=== PATIENT | female | born 1935 | race Caucasian/White ===

== ENCOUNTER 2016-03-20 05:50 | Outpatient (CLI) | payer MEDICARE ==
[~2016-03-20] VITALS: Ht 160 cm; Wt 60.3 kg
[~2016-03-20 05:50] MED LIST: CALC-817 PO; MULT-974 PO; OMEP40CA36 PO; ROPI1TAB GT
== END 2016-03-20 11:48 ==
LOC: PREOP 05:50
PROVIDERS: ATTEND Surgery
DX: Z01.818 Encounter for other preprocedural examination (principal); K21.9 Gastro-esophageal reflux disease without esophagitis

== ENCOUNTER 2016-03-24 09:37 | Day surgery (SDC) | payer MEDICARE ==
[~2016-03-24] VITALS: Ht 160 cm; Wt 60.3 kg
[2016-03-24] MEDS ORDERED: NALOXONE 0.4 MG/ML 1 ML (NARCAN) VIAL IVP PRN (10:00)
[2016-03-24] MEDS ORDERED: FLUMAZENIL (ROMAZICON) 0.1 MG/ML 5 ML VIAL INJ PRN (10:00)
[2016-03-24] MEDS ORDERED: MIDAZOLAM 2 MG/2 ML (VERSED) VIAL IVP PRN (10:00)
[2016-03-24] MEDS ORDERED: NS IV 500 ML 500 ML IV PRN (10:00)
[2016-03-24] MEDS ORDERED: HURRICAINE EXT TUBE (BENZOCAINE) XX PRN (10:00)
--- NOTE | 2016-03-24 10:11 | Pre-Op Note & Conscious Sedat ---
Pre-Operative Progress Note H&P Reviewed The H&P was reviewed, patient examined and no changes noted. Date H&P Reviewed: Mar 24, 2016 Time H&P Reviewed: 10:10 Pre-Op Diagnosis: Rosamaria. Dysphagia Conscious Sedation Pre-Proced ASA Class: 2 Airway Mallampati Classification: ([place] appropriate class) I. II. III, IV Lungs Heart ASA score ASA 1: a normal healthy patient ASA 2: a patient with a mild systemic disease (mid diabetes, controlled hypertension, obesity ASA 3: a patient with a severe systemic disease that limits activity (angina , COPD, prior Myocardial infarction) ASA 4: a patient with an incapacitating disease that is a constant threat to life (CHF, renal failure) ASA 5: a moribund patient not expected to survive 24 hrs. (ruptured aneurysm) ASA 6: a declared brain patient whose organs are being harvested. For emergent operations, add the letter E after the classification Grade 2 Sedation Plan: Discussed options with patient/fam Note The patient is an appropriate candidate to undergo the planned procedure, sedation, and anesthesia. The patient immediately re-assessed prior to indication. COLLINS CARDOSO MD Mar 24, 2016 10:11 am
[2016-03-24 10:13] VITALS: BP 123/93
[2016-03-24] MEDS ORDERED: HURRICAINE EXT TUBE (BENZOCAINE) ONE (10:40)
[2016-03-24] MEDS ORDERED: fentaNYL INJECTION 100 MCG/2 ML AMP ONE (10:40)
[2016-03-24] MEDS ORDERED: MIDAZOLAM 2 MG/2 ML (VERSED) VIAL ONE ×3 (10:40)
[2016-03-24] MEDS: fentaNYL INJECTION 100 MCG/2 ML AMP IVP PRN ×2 (10:45→10:49)
--- NOTE | 2016-03-24 11:07 | Progress Note-Post Operative ---
Post-Operative Progess Note Pre-Operative Diagnosis Rosamaria. Dysphagia Post-Operative Diagnosis hiatal hernia with a peptic stricture. Distal streaky gastritis Post-Op Procedure Note Date of Procedure: Mar 24, 2016 Name of Procedure: EGD with antral biopsy Balloon dilatation of esophageal stricture Anesthesia Type sedation Specimen(s) collected antral mucosa COLLINS CARDOSO MD Mar 24, 2016 11:07 am
--- NOTE | 2016-03-24 11:09 | Discharge Inst-Simple/Standard ---
Discharge Inst-Standard Discharge Medications New, Converted or Re-Newed RX: Other Patient Instructions/Follow Up Plan of Care/Instructions/FU: increase omeprazole to twice a day. Follow-up with me in a month Activity as Tolerated: Yes Discharge Diet: Soft Diet COLLINS CARDOSO MD Mar 24, 2016 11:09 am
[2016-03-24 11:30] VITALS: BP 135/64
[2016-03-24 12:00] VITALS: BP_SYST 135; BP_SYST 148; BP_DIAS 64; BP_DIAS 77
[2016-03-24 12:05] VITALS: BP 148/77
--- NOTE | 2016-03-25 07:45 | PROCEDURE REPORT ---
PROCEDURE PHYSICIAN: COLLINS CARDOSO DATE OF PROCEDURE: 03/24/2016 PROCEDURE: 1. Upper GI endoscopy with antral biopsy. 2. Balloon dilatation of esophageal stricture. SURGEON: Dr. Cardoso. INDICATION FOR THE PROCEDURE: This lady came in for an upper endoscopy to evaluate upper abdominal pain with symptoms of reflux and intermittent dysphagia. An informed consent was obtained after reviewing the procedure in detail. DESCRIPTION OF PROCEDURE: She was placed in left lateral decubitus position and her vital signs were monitored. Conscious sedation was achieved using Versed and fentanyl. The flexible gastroscope was introduced down the esophagus, past the stomach, into the proximal duodenum. FINDINGS: ESOPHAGUS: Hiatal hernia with a concentric stricture at the proximal end of the hernia. It had the appearance of a peptic stricture and dilated to 20 mm with a balloon. STOMACH: Distal gastritis in a streaky fashion. There was no ulceration. Biopsy for H. pylori was obtained. DUODENUM: Normal. She tolerated the procedure well and was taken back to the nursing area in a stable condition. IMPRESSION: 1. Upper abdominal pain and dysphagia. 2. Peptic esophageal stricture. 3. Balloon dilatation completed. 4. Helicobacter status pending. Job ID: [id number] Dictated Date: 03/24/2016 11:06:00 Channel Marketing Program Manager Date: 03/25/2016 07:41:59 / chuyita LOWE
== END 2016-03-24 12:10 | disposition home or self-care (01) ==
LOC: ENDO 09:37
PROVIDERS: ATTEND Surgery
DX: K22.2 Esophageal obstruction (principal); R13.10 Dysphagia, unspecified; K44.9 Diaphragmatic hernia without obstruction or gangrene; K29.70 Gastritis, unspecified, without bleeding
CPT/HCPCS: 88305

== ENCOUNTER 2016-11-06 05:42 | Outpatient (CLI) | payer MEDICARE ==
[~2016-11-06] VITALS: Ht 160 cm; Wt 60.3 kg
[2016-11-06] MEDS ORDERED: ROPI1TAB2 PO (14:56)
[2016-11-06] MEDS ORDERED: OMEP40CA36 PO (14:56)
== END 2016-11-06 14:58 ==
LOC: PREOP 05:42
PROVIDERS: ATTEND Surgery
DX: R19.4 Change in bowel habit; Z01.818 Encounter for other preprocedural examination

== ENCOUNTER 2016-11-17 10:22 | Day surgery (SDC) | payer MEDICARE ==
[~2016-11-17] VITALS: Ht 160 cm; Wt 60.3 kg
[~2016-11-17 10:22] MED LIST changes: +MIDAZOLAM 2 MG/2 ML (VERSED) VIAL ONE; +ROPI1TAB2 PO; +fentaNYL INJECTION 100 MCG/2 ML AMP ONE
--- OUTSIDE RECORDS SUMMARY | 2016-11-17 10:26 | XMS REPORT | Clinical Summary ---
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 Active Fely Mcintosh Unspecified idiopathic peripheral neuropathy DIZZINESS 780.4 Resolved Fely Mcintosh Dizziness and giddiness SYNCOPE 780.2 Resolved Fely Mcintosh Syncope and collapse LEG PAIN, LEFT 729.5 Resolved Fely Mcintosh Pain in limb WEIGHT GAIN, ABNORMAL 783.1 Resolved Fely Mcintosh Abnormal weight gain CHEST PAIN, ATYPICAL 786.59 Resolved Fely Mcintosh Other chest pain GERD 530.81 Active Fely Mcintosh Esophageal reflux MALABSORPTION SYNDROME 579.9 Resolved Fely Mcintosh Unspecified intestinal malabsorption ABDOMINAL PAIN, GENERALIZED 789.07 Resolved Fely Mcintosh Abdominal pain, generalized RESTLESS LEG SYNDROME 333.94 Active Fely Mcintosh Restless legs syndrome (RLS) LUMBAR RADICULOPATHY, LEFT 724.4 Active Fely Mcintosh Thoracic or lumbosacral neuritis or radiculitis, unspecified IBS 564.1 Active Fely Mcintosh Irritable bowel syndrome ABDOMINAL PAIN, GENERALIZED 789.07 Active Fely Mcintosh Abdominal pain, generalized Medication List Medication Instructions Start Date Stop Date Generic Name NDC Status Provider Patient Instruction REQUIP 1 MG TABS 1 PO at HS [place] HCL [id number] Active Fely Mcintosh OMEPRAZOLE 20 MG CPDR 1 PO daily OMEPRAZOLE 72114933383 Active Yu Shearer Vital Signs Date Name Value Unit Range Description blood pressure, diastolic - 8462-4 65 mm[Hg] BP rodrigues blood pressure, systolic - 8480-6 118 mm[Hg] BP sys pulse rate E&M - 8867-4 84 /min Heart rate respiratory rate E&M - 9279-1 14 /min Resp rate temperature E&M 98.6 [degF] Body temperature weight E&M - 3141-9 142 [lb_av] Weight Measured blood pressure, diastolic - 8462-4 73 mm[Hg] BP rodrigues blood pressure, systolic - 8480-6 120 mm[Hg] BP sys pulse rate E&M - 8867-4 76 /min Heart rate respiratory rate E&M - 9279-1 14 /min Resp rate temperature E&M 98.6 [degF] Body temperature weight E&M - 3141-9 141 [lb_av] Weight Measured blood pressure, diastolic - 8462-4 66 mm[Hg] BP rodrigues blood pressure, systolic - 8480-6 118 mm[Hg] BP sys pulse rate E&M - 8867-4 74 /min Heart rate respiratory rate E&M - 9279-1 14 /min Resp rate weight E&M - 3141-9 140 [lb_av] Weight Measured blood pressure, diastolic - 8462-4 80 mm[Hg] BP rodrigues blood pressure, systolic - 8480-6 126 mm[Hg] BP sys pulse rate E&M - 8867-4 76 /min Heart rate respiratory rate E&M - 9279-1 14 /min Resp rate temperature E&M 98.6 [degF] Body temperature weight E&M - 3141-9 145 [lb_av] Weight Measured Diagnostic Results Date Name Value Unit Range Description Clinical Lists Update: CBC,CMP,FLP - Chemistry sodium, serum 142 mmol/L alkaline phosphatase, serum 105 U/L Estimated Glomerular Filtration Rate (calc) >60 mL/min/1.73m2 albumin, serum 3.8 g/dL chloride, serum 110 mmol/L LDL cholesterol, serum 125 mg/dL creatinine, serum 0.78 mg/dL triglyceride, serum, fasting 84 mg/dL glucose, plasma fasting 103 mg/dL potassium, serum 4.0 mmol/L very low density lipoproteins 17 mg/dL carbon dioxide, venous blood 22 mmol/L protein, total, serum 6.6 g/dL calcium, serum 9.3 mg/dL aspartate aminotransferase (SGOT), serum 20 U/L urea nitrogen, blood 20 mg/dL alanine aminotransferase (SGPT), serum 14 U/L bilirubin, serum, total 0.9 mg/dL cholesterol, serum 192 mg/dL HDL cholesterol, serum 52 mg/dL Clinical Lists Update: CBC,CMP,FLP - Hematology erythrocyte (RBC) count 4.20 10*6/mm3 hematocrit, blood 40 % leukocyte count, blood 4.7 10*3/mm3 mean corpuscular volume, RBC 96 fL hemoglobin, blood 13.1 g/dL red blood cell distribution width 13.6 % platelet count 165 10*3/mm3 Clinical Lists Update: CBC,CMP,FLP,TSH - Chemistry thyroid stimulating hormone, serum 1.35 u[iU]/mL triglyceride, serum, fasting 72 mg/dL very low density lipoproteins 14 mg/dL calcium, serum 9.4 mg/dL bilirubin, serum, total 0.6 mg/dL alkaline phosphatase, serum 103 U/L albumin, serum 3.8 g/dL LDL cholesterol, serum 14 mg/dL HDL cholesterol, serum 60 mg/dL glucose, plasma fasting 97 mg/dL Estimated Glomerular Filtration Rate (calc) >60 mL/min/1.73m2 creatinine, serum 0.73 mg/dL carbon dioxide, venous blood 27 mmol/L cholesterol, serum 206 mg/dL chloride, serum 107 mmol/L urea nitrogen, blood 22 mg/dL sodium, serum 141 mmol/L alanine aminotransferase (SGPT), serum 18 U/L aspartate aminotransferase (SGOT), serum 18 U/L protein, total, serum 6.3 g/dL potassium, serum 3.9 mmol/L Clinical Lists Update: CBC,CMP,FLP,TSH - Hematology hemoglobin, blood 13.4 g/dL red blood cell distribution width 13.6 % hematocrit, blood 40 % erythrocyte (RBC) count 4.18 10*6/mm3 platelet count 164 10*3/mm3 mean corpuscular volume, RBC 97 fL leukocyte count, blood 5.6 10*3/mm3 Clinical Lists Update: Ferritin - Chemistry ferritin, serum 152 ng/mL ferritin, serum 128 ng/mL Encounters Code Encounter Date Provider Facility CPT-96587 Ofc Vst, Est Level IV 15:42:52 STOCK DEALER Fely Mcintosh DO, FACP CPT-05279 Ofc Vst, Est Level IV 15:13:21 CDT Fely Mcintosh, DO, FACP CPT-82130 Ofc Vst, Est Level III 20:49:43 CDT Fely Mcintosh, DO, FACP CPT-43143 Ofc Vst, Est Level III 15:06:59 STOCK DEALER Fely Mcintosh DO, FACP CPT-98362 Ofc Vst, Est Level III 19:48:57 STOCK DEALER Fely Mcintosh, DO, FACP CPT-08512 Ofc Vst, Est Level IV 11:53:22 CDT Fely Mcintosh, DO, FACP CPT-81013 Ofc Vst, New Level IV 11:47:30 CDT Fely Mcintosh, DO, FACP Procedures Code Procedure Name Date Entry Date Standard Description CPT-G0439 Medicare Annual Wellness Visit 18:04:09 STOCK DEALER CPT-G8445 E-Prescribing Not sent due to no medication given 15:06: 59 STOCK DEALER CPT-G8445 E-Prescribing Not sent due to no medication given 19:48: 57 STOCK DEALER CPT-G8443 E-Prescribing Medication Sent 11:53:22 CDT CPT-G8445 E-Prescribing Not sent due to no medication given 11:47: 30 CDT
--- OUTSIDE RECORDS SUMMARY | 2016-11-17 10:27 | XMS REPORT | Clinical Summary ---
Author Author User, [employer] Organization Fely Mcintosh DO, FACP Address Unknown [...] TABS 1 PO at HS [place] HCL [id number] Active Fely Mcintosh OMEPRAZOLE 20 MG CPDR 1 PO daily OMEPRAZOLE [id number] Active Yu Shearer Vital Signs Date Name [...] Description Clinical Lists Update: CBC,CMP,FLP - Chemistry cholesterol, serum 192 mg/dL carbon dioxide, venous blood 22 mmol/L alanine aminotransferase (SGPT), serum 14 U/L alkaline phosphatase, serum 105 U/L Estimated Glomerular Filtration Rate (calc) >60 mL/min/1.73m2 albumin, serum 3.8 g/dL chloride, serum 110 mmol/L LDL cholesterol, serum 125 mg/dL potassium, serum 4.0 mmol/L triglyceride, serum, fasting 84 mg/dL aspartate aminotransferase (SGOT), serum 20 U/L protein, total, serum 6.6 g/dL very low density lipoproteins 17 mg/dL glucose, plasma fasting 103 mg/dL calcium, serum 9.3 mg/dL bilirubin, serum, total 0.9 mg/dL urea nitrogen, blood 20 mg/dL sodium, serum 142 mmol/L HDL cholesterol, serum 52 mg/dL creatinine, serum 0.78 mg/dL Clinical Lists Update: CBC,CMP,FLP - Hematology erythrocyte (RBC) count 4.20 10*6/mm3 leukocyte count, blood 4.7 10*3/mm3 mean corpuscular volume, RBC 96 fL red blood cell distribution width 13.6 % hematocrit, blood 40 % hemoglobin, blood 13.1 g/dL platelet count 165 10*3/mm3 Clinical Lists Update: CBC,CMP,FLP,TSH - Chemistry potassium, serum 3.9 mmol/L thyroid stimulating hormone, serum 1.35 u[iU]/mL triglyceride, [...] 18 U/L protein, total, serum 6.3 g/dL Clinical Lists Update: CBC,CMP,FLP,TSH - Hematology red blood cell distribution width 13.6 % hemoglobin, blood 13.4 g/dL mean corpuscular volume, RBC 97 fL erythrocyte (RBC) count 4.18 10*6/mm3 leukocyte count, blood 5.6 10*3/mm3 hematocrit, blood 40 % platelet count 164 10*3/mm3 Clinical Lists Update: Ferritin - Chemistry ferritin, serum 152 ng/mL Encounters Code Encounter Date Provider Facility CPT-28817 Ofc Vst, Est Level IV 15:42:52 PROFESSOR OF EARLY CHILDHOOD EDUCATION Fely Ho aDyna Arambula Mcintosh, DO, FACP CPT-58353 Ofc Vst, Est Level IV 15:13:21 CDT Fely Ho Dayna Reneei S Mcintosh, DO, FACP CPT-43830 Ofc Vst, Est Level III 20:49:43 CDT Fely [place] Dayna Reneei S Mcintosh, DO, FACP CPT-94655 Ofc Vst, Est Level III 15:06:59 PROFESSOR OF EARLY CHILDHOOD EDUCATION Fely [place] Dayna Reneei S Mcintosh, DO, FACP CPT-36641 Ofc Vst, Est Level III 19:48:57 PROFESSOR OF EARLY CHILDHOOD EDUCATION Fely Ho Dayna Geiger S Mcintosh, DO, FACP CPT-88975 Ofc Vst, Est Level IV 11:53:22 CDT Fely Ho Dayna Geiger S Mcintosh, DO, FACP CPT-20224 Ofc Vst, New Level IV 11:47:30 CDT Fely Ho Dayna Geiger S Mcintosh, DO, FACP Procedures Code Procedure Name Date Entry Date Standard Description CPT-G0439 Medicare Annual Wellness Visit 18:04:09 PROFESSOR OF EARLY CHILDHOOD EDUCATION CPT-G8445 E-Prescribing Not sent due to no medication given 15:06: 59 PROFESSOR OF EARLY CHILDHOOD EDUCATION CPT-G8445 E-Prescribing Not sent due to no medication given 19:48: 57 PROFESSOR OF EARLY CHILDHOOD EDUCATION CPT-G8443 E-Prescribing Medication Sent 11:53:22 CDT CPT-G8445 E-Prescribing Not sent due to no medication given 11:47: 30 CDT
--- OUTSIDE RECORDS SUMMARY | 2016-11-17 10:27 | XMS REPORT | Clinical Summary ---
Author Author User, [employer] Organization Fely Mcintosh DO, FACP Address Unknown [...] TABS 1 PO at HS ROPINIRO[place] HCL [id number] Active Fely Mcintosh OMEPRAZOLE 20 MG CPDR 1 PO daily OMEPRAZOLE 99861937282 Active Yu Shearer Vital Signs Date Name Value Unit Range Description blood pressure, diastolic - 8462-4 60 mm[Hg] BP rodrigues blood pressure, systolic - 8480-6 115 mm[Hg] BP sys pulse rate E&M - 8867-4 66 /min Heart rate respiratory rate E&M - 9279-1 14 /min Resp rate weight E&M - 3141-9 142 [lb_av] Weight Measured blood pressure, diastolic - 8462-4 65 mm[Hg] [...] ng/mL Encounters Code Encounter Date Provider Facility CPT-30727 Ofc Vst, Est Level III 19:41:49 CDT Fely Mcintosh DO, FACP CPT-12269 Ofc Vst, Est Level IV 15:42:52 ELECTROMEDICAL SERVICE ENGINEER Fely Mcintosh DO, FACP CPT-19170 Ofc Vst, Est Level IV 15:13:21 CDT Fely Mcintosh, DO, FACP CPT-75606 Ofc Vst, Est Level III 20:49:43 CDT Fely Mcintosh DO, FACP CPT-36905 Ofc Vst, Est Level III 15:06:59 ELECTROMEDICAL SERVICE ENGINEER Fely Mcintosh, DO, FACP CPT-86773 Ofc Vst, Est Level III 19:48:57 ELECTROMEDICAL SERVICE ENGINEER Fely Mcintosh, DO, FACP CPT-78267 Ofc Vst, Est Level IV 11:53:22 CDT Fely Mcintosh DO, FACP CPT-15453 Ofc Vst, New Level IV 11:47:30 CDT Fely Mcintosh, DO, FACP Procedures Code Procedure Name Date Entry Date Standard Description CPT-G0439 Medicare Annual Wellness Visit 18:04:09 ELECTROMEDICAL SERVICE ENGINEER CPT-G8445 E-Prescribing Not sent due to no medication given 15:06: 59 ELECTROMEDICAL SERVICE ENGINEER CPT-G8445 E-Prescribing Not sent due to no medication given 19:48: 57 ELECTROMEDICAL SERVICE ENGINEER CPT-G8443 E-Prescribing Medication Sent 11:53:22 CDT CPT-G8445 E-Prescribing Not sent due to no medication given 11:47: 30 CDT
[2016-11-17] MEDS ORDERED: NS IV 500 ML 500 ML ONE (10:32)
[2016-11-17] MEDS ORDERED: NS IV 500 ML 500 ML IV ONE (10:45)
[2016-11-17 10:50] VITALS: BP 132/83
--- NOTE | 2016-11-17 10:57 | History & Physicial ---
History of Present Illness History of Present Illness Reason for visit/HPI to undergo colonoscopy to investigate change in her bowel habits, with a tendency toward increasing constipation. Date of Admission Date Seen by Provider: Nov 17, 2016 Time Seen by Provider: 10:55 I consulted on this patient on 11/17/16 10:54 Attending Physician Collins Cardoso MD Admitting Physician Fely Mcintosh DO Consult Allergies and Home Medications Allergies Coded Allergies: No Known Drug Allergies (Unverified , 03/20/16) Home Medications Omeprazole 40 Mg Capsule.dr, 40 MG PO DAILY, (Reported) Ropinirole HCl 1 Mg Tablet, 1 MG PO HS, (Reported) Past Eyvxxhf-Jxxhkh-Nesmvu Hx Patient Social History Marrital Status: Employed/Student: retired Recent Foreign Travel: No Contact w/other who traveled: No Recent Hopitalizations: No Immunizations Up To Date Date of Pneumonia Vaccine: Jan 19, 2012 Date of Influenza Vaccine: Dec 07, 2012 Seasonal Allergies Seasonal Allergies: No Surgeries Yes Gallbladder Respiratory No Cardiovascular No Neurological No 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 System Hx 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 Disorders: No Sexually Transmitted Disease: No HIV/AIDS: No Genitourinary No Gastrointestinal Yes Gastroesophageal Reflux, Irritable Bowel Musculoskeletal Yes Chronic Back Pain Endocrine History of Endocrine Disorders: No HEENT History of HEENT Disorders: No 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, Bilateral Hearing Aide Cancer No Psychosocial History of Psychiatric Problem: No Integumentary History of Skin or Integumenta: No Blood Transfusions Adverse Reaction to a Blood Tr: No Constitutional: no symptoms reported EENTM: no symptoms reported Respiratory: no symptoms reported Cardiovascular: no symptoms reported Gastrointestinal: see HPI Genitourinary: no symptoms reported Musculoskeletal: no symptoms reported Skin: no symptoms reported Psychiatric/Neurological: No Symptoms Reported Physical Exam Vital Signs Capillary Refill : General Appearance: No Apparent Distress HEENT: Normal ENT Inspection Neck: Normal Inspection Respiratory: Lungs Clear Cardiovascular: Regular Rate, Rhythm Gastrointestinal: Non Tender, Soft Rectal: Deferred Back: Normal Inspection Extremity: Normal Inspection Neurologic/Psychiatric: Alert, Oriented x3 Skin: Warm/Dry Assessment/Plan Assessment and Plan lady with a change in bowel habits. For colonoscopy. Problems: COLLINS CARDOSO MD Nov 17, 2016 10:57 am
--- NOTE | 2016-11-17 10:57 | Conscious Sedation/ASA ---
Conscious Sedation Pre-Proced Time Reviewed: 10:57 ASA Class: 2 Airway Mallampati Classification: ([place] appropriate class) I. II. III, IV Lungs Heart ASA score ASA 1: a normal healthy patient ASA 2: a patient with a mild systemic disease (mid diabetes, controlled hypertension, obesity ASA 3: a patient with a severe systemic disease that limits activity (angina , COPD, prior Myocardial infarction) ASA 4: a patient with an incapacitating disease that is a constant threat to life (CHF, renal failure) ASA 5: a moribund patient not expected to survive 24 hrs. (ruptured aneurysm) ASA 6: a declared brain patient whose organs are being harvested. For emergent operations, add the letter E after the classification Grade 1 Sedation Plan: Discussed options with patient/fam Note The patient is an appropriate candidate to undergo the planned procedure, sedation, and anesthesia. The patient immediately re-assessed prior to indication. COLLINS CARDOSO MD Nov 17, 2016 10:57 am
[2016-11-17] MEDS: fentaNYL INJECTION 100 MCG/2 ML AMP IVP PRN ×2 (11:08→11:11)
[2016-11-17] MEDS: MIDAZOLAM 2 MG/2 ML (VERSED) VIAL IVP PRN ×3 (11:09→11:15)
--- NOTE | 2016-11-17 11:33 | Endo Procedure Record ---
Endo Procedure Report Date of Procedure Nov 17, 2016 Surgeon (s) COLLINS CARDOSO MD Post Procedure/Op Diagnosis 1. 3 mm distal sigmoid polyp 2. Very few sigmoid diverticula Procedure Performed colonoscopy to cecum Snare polypectomy 1 Description of Procedure Anesthesia Type: Conscious Sedation Specimen(s) collected/removed sigmoid polyp Description of the Procedure Indication for procedure: This lady came in for colonoscopy to evaluate a change in her bowel habits, with an increased tendency toward constipation. Informed consent was obtained after reviewing the procedure in detail. Description of the procedure: She was placed in left lateral decubitus position and her vital signs were monitored. Conscious sedation was achieved using Versed and fentanyl. Digital rectal examination was unremarkable. The colonoscope was then introduced into the rectum and advanced all the way up to the cecum .The quality of bowel preparation was excellent. The scope was then withdrawn slowly and the mucosa examined in a systematic fashion. Findings: 1. 3 mm polyp at the distal sigmoid colon, that was snared and retrieved 2. Very few sigmoid diverticula. She tolerated the procedure well and was taken back to the nursing area in a stable condition. Impression: Change in bowel habits. No obstructing lesions discovered. Incidental sigmoid polyp excised. Recommend repeating in 5 years. Copies To: DUNG KEYS XAVIER M MD Nov 17, 2016 11:33 am
--- NOTE | 2016-11-17 11:34 | Discharge Inst-Simple/Standard ---
Discharge Inst-Standard Discharge Medications New, Converted or Re-Newed RX: Other Patient Instructions/Follow Up Plan of Care/Instructions/FU: to increase fiber and water intake. repeat colonoscopy in 5 years Activity as Tolerated: Yes Discharge Diet: No Restrictions COLLINS CARDOSO MD Nov 17, 2016 11:34 am
[2016-11-17 11:50] VITALS: BP 109/75
[2016-11-17 12:20] VITALS: BP 123/76
[2016-11-17 12:40] VITALS: BP 123/76
== END 2016-11-17 12:40 | disposition home or self-care (01) ==
LOC: ENDO 10:22
PROVIDERS: ATTEND Surgery
DX: K63.5 Polyp of colon (principal); K57.30 Diverticulosis of large intestine without perforation or abscess without bleeding; K21.9 Gastro-esophageal reflux disease without esophagitis

== ENCOUNTER 2017-02-04 09:51 | Inpatient (IN) | payer MEDICARE ==
[~2017-02-04] VITALS: Ht 160 cm; Wt 60.4 kg
[~2017-02-04 09:51] MED LIST changes: -MIDAZOLAM 2 MG/2 ML (VERSED) VIAL ONE; -fentaNYL INJECTION 100 MCG/2 ML AMP ONE
[2017-02-04] MEDS ORDERED: NS IV 500 ML 500 ML IV ONE (10:19)
[2017-02-04 10:26] LABS: BASOPHILS % (AUTO) 0 % (0-10); EOSINOPHILS % (AUTO) 0 % (0-10); LYMPHOCYTES # (AUTO) 0.5 X 10^3 (1.0-4.0); LYMPHOCYTES % (AUTO) 4 % (12-44); MEAN CORPUSCULAR HEMOGLOBIN 32 PG (25-34); MEAN CORPUSCULAR HGB CONC 34 G/DL (32-36); MEAN CORPUSCULAR VOLUME 96 FL (80-99); MEAN PLATELET VOLUME 11.5 FL (7.4-10.4); MONOCYTES # (AUTO) 0.8 X 10^3 (0.0-1.0); MONOCYTES % (AUTO) 7 % (0-12); NEUTROPHILS # (AUTO) 9.5 X 10^3 (1.8-7.8); NEUTROPHILS % (AUTO) 88 % (42-75); PLATELET COUNT 135 10^3/uL (130-400); RED BLOOD COUNT 4.21 10^6/uL (4.35-5.85); RED CELL DISTRIBUTION WIDTH 13.8 % (10.0-14.5); WHITE BLOOD COUNT 10.8 10^3/uL (4.3-11.0)
[2017-02-04 10:42] LABS: LYMPHOCYTES % (MANUAL) 3 %; NEUTROPHILS % (MANUAL) 90 %; REACTIVE LYMPHOCYTES 3 %
--- NOTE | 2017-02-04 10:45 | Diagnostic Imaging Report ---
INDICATION: Fall, fractured right femur. TECHNIQUE: An AP supine view of the chest was obtained. FINDINGS: The heart size and pulmonary vascularity are at the upper limits of normal given the supine technique. There is no evidence of pneumothorax or focal consolidation. No definite pleural fluid is seen. IMPRESSION: Borderline cardiomegaly and pulmonary venous congestion on this supine image. Followup PA and lateral views in the upright position would be useful. Dictated by: Dictated on workstation # [id number]
[2017-02-04 10:46] LABS: ALANINE AMINOTRANSFERASE 19 U/L (0-55); ALBUMIN 3.9 GM/DL (3.2-4.5); ANION GAP 9 MMOL/L (5-14); ASPARTATE AMINO TRANSFERASE 26 U/L (5-34); BILIRUBIN,TOTAL 1.5 MG/DL (0.1-1.0); BLOOD UREA NITROGEN 17 MG/DL (7-18); BUN/CREATININE RATIO 24; CALCIUM 9.1 MG/DL (8.5-10.1); CARBON DIOXIDE 25 MMOL/L (21-32); CHLORIDE 105 MMOL/L (98-107); CREATINE KINASE 238 U/L (29-168); CREATININE SERUM 0.71 MG/DL (0.60-1.30); GFR ESTIMATED > 60; GLUCOSE 155 MG/DL (70-105); POTASSIUM 3.6 MMOL/L (3.6-5.0); SODIUM 139 MMOL/L (135-145); TOTAL PROTEIN 6.7 GM/DL (6.4-8.2)
--- NOTE | 2017-02-04 10:46 | Diagnostic Imaging Report ---
INDICATION: Fall with right hip region pain. TECHNIQUE: An AP view of the pelvis was obtained with coned AP and crosstable lateral views of the right hip. FINDINGS: There is a subcapital fracture through the neck of the proximal right femur with mild overriding. No dislocation is identified. The remainder of the pelvis appears to be intact with mild to moderate lower lumbar spondylosis. IMPRESSION: Displaced, overriding subcapital fracture of the proximal right femur without dislocation. Dictated by: Dictated on workstation # [id number]
--- NOTE | 2017-02-04 10:50 | ED Fall/Injury ---
General Chief Complaint: Trauma-Non Activation Stated Complaint: FALL Nursing Triage Note: PT STATES SHE FELL TWICE LAST NIGHT, THE FIRST TIME SHE FELL OUTSIDE AND STEPPED OFF THE EDGE OF A ROADWAY FALLING ON THE PAVEMENT. THE SECOND TIME SHE WAS WALKING IN THE HOUSE AND SLIPPED ON TILE FLOOR WITH SOCKS ON, STATES SHE HIT HER HEAD BUT DENIES LOC, CC OF RT HIP PAIN, RT LEG APPEARS SHORTER AND ROTATED TO THE SIDE, UNABLE TO BEAR WEIGHT. PT CRAWLED TO BED LAST NIGHT, ABOUT 0400 PT HAD TO GO TO THE RESTROOM, TRIED TO CRAWL TO A WALKER BUT WAS UNABLE TO GET UP WITH IT AND LOST HER BLADDER ON THE FLOOR. Source: patient Exam Limitations: no limitations History of Present Illness Time seen by provider: 10:48 Initial Comments To ER with reports of a fall twice last night. After the first fall she was outdoors and tripped over some pavement. She was able to get up and continue walking home. She then fell again during the night slipping on some tile in her house landing on the right side. She has persistent right-sided hip pain. She did hit her head but denies loss of consciousness. She does have a persistent headache today but states that she frequently does have headaches and this is not alarming to her. However, the hip pain persists and she is unable to bear weight since the second fall. Occurred: yesterday Severity: moderate Injuries/Pain Location: lower extremity Context: slipped, tripped Loss of Consciousness: no loss of consciousness Associated Symptoms (Fall): Headache Allergies and Home Medications Allergies Coded Allergies: No Known Drug Allergies (Unverified , 03/20/16) Home Medications Omeprazole 40 Mg Capsule.dr, 40 MG PO DAILY, (Reported) Ropinirole HCl 1 Mg Tablet, 1 MG PO HS, (Reported) Constitutional: see HPI Eyes: No Symptoms Reported Ears, Nose, Mouth, Throat: no symptoms reported Respiratory: no symptoms reported Cardiovascular: no symptoms reported Genitourinary: no symptoms reported Musculoskeletal: see HPI Skin: no symptoms reported Psychiatric/Neurological: No Symptoms Reported Past Zbneblj-Czwzgv-Teoulu Hx Patient Social History Alcohol Use: Denies Use Recreational Drug Use: No Smoking Status: Never a Smoker Recent Foreign Travel: No Contact w/Someone Who Travel: No Recent Infectious Disease Expo: No Recent Hopitalizations: No Immunizations Up To Date Date of Pneumonia Vaccine: Jan 19, 2012 Date of Influenza Vaccine: Dec 07, 2012 Seasonal Allergies Seasonal Allergies: No Surgeries History of Surgeries: Yes Surgeries: Ear Surgery, Gallbladder Respiratory History of Respiratory Disorde: No Cardiovascular History of Cardiac Disorders: No Neurological History of Neurological Disord: No 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 System Hx 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 Disorders: No Sexually Transmitted Disease: No HIV/AIDS: No Genitourinary History of Genitourinary Disor: No Gastrointestinal History of Gastrointestinal Di: Yes Gastrointestinal Disorders: Gastroesophageal Reflux, Irritable Bowel Musculoskeletal History of Musculoskeletal Dis: Yes Musculoskeletal Disorders: Chronic Back Pain Endocrine History of Endocrine Disorders: No HEENT 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, Bilateral Hearing Aide Cancer History of Cancer: No Psychosocial History of Psychiatric Problem: No Integumentary History of Skin or Integumenta: No Blood Transfusions History of Blood Disorders: No Adverse Reaction to a Blood Tr: No Physical Exam Vital Signs Vital Sign - Last 12Hours 02/04/17 10:00 Temp 97.6 Pulse 85 Resp 20 B/P (MAP) 138/75 (96) Pulse Ox 96 O2 Delivery Room Air Capillary Refill : Less Than 3 Seconds General Appearance: WD/WN, no apparent distress HEENT: PERRL/EOMI, normal ENT inspection Neck: non-tender, full range of motion Respiratory: normal breath sounds, no respiratory distress, no accessory muscle use Gastrointestinal: normal bowel sounds, non tender, soft Extremities: No swelling, other (no pedal edema but there is shortening and external rotation of the right leg) Neurologic/Psychiatric: alert, normal mood/affect, oriented x 3 Skin: normal color, warm/dry [place] Coma Score Best Eye Response: (4) Open Spontaneously Best Verbal Response: (5) Oriented Best Motor Response: (6) Obeys Commands [place] Total: 15 Progress/Results/Core Measures Results/Orders Lab Results Laboratory Tests Test 02/04/17 10:00 Range/Units White Blood Count 10.8 4.3-11.0 10^3/uL Red Blood Count 4.21 L 4.35-5.85 10^6/uL Hemoglobin 13.6 11.5-16.0 G/DL Hematocrit 41 35-52 % Mean Corpuscular Volume 96 80-99 FL Mean Corpuscular Hemoglobin 32 25-34 PG Mean Corpuscular Hemoglobin Concent 34 32-36 G/DL Red Cell Distribution Width 13.8 10.0-14.5 % Platelet Count 135 130-400 10^3/uL Mean Platelet Volume 11.5 H 7.4-10.4 FL Neutrophils (%) (Auto) 88 H 42-75 % Lymphocytes (%) (Auto) 4 L 12-44 % Monocytes (%) (Auto) 7 0-12 % Eosinophils (%) (Auto) 0 0-10 % Basophils (%) (Auto) 0 0-10 % Neutrophils # (Auto) 9.5 H 1.8-7.8 X 10^3 Lymphocytes # (Auto) 0.5 L 1.0-4.0 X 10^3 Monocytes # (Auto) 0.8 0.0-1.0 X 10^3 Eosinophils # (Auto) 0.0 0.0-0.3 10^3/uL Basophils # (Auto) 0.0 0.0-0.1 10^3/uL Neutrophils % (Manual) 90 % Lymphocytes % (Manual) 3 % Monocytes % (Manual) 4 % Reactive Lymphocytes 3 % Blood Morphology Comment NORMAL Sodium Level 139 135-145 MMOL/L Potassium Level 3.6 3.6-5.0 MMOL/L Chloride Level 105 98-107 MMOL/L Carbon Dioxide Level 25 21-32 MMOL/L Anion Gap 9 5-14 MMOL/L Blood Urea Nitrogen 17 7-18 MG/DL Creatinine 0.71 0.60-1.30 MG/DL Estimat Glomerular Filtration Rate > 60 BUN/Creatinine Ratio 24 Glucose Level 155 H 70-105 MG/DL Calcium Level 9.1 8.5-10.1 MG/DL Total Bilirubin 1.5 H 0.1-1.0 MG/DL Aspartate Amino Transf (AST/SGOT) 26 5-34 U/L Alanine Aminotransferase (ALT/SGPT) 19 0-55 U/L Alkaline Phosphatase 118 40-136 U/L Total Creatine Kinase 238 H 29-168 U/L Total Protein 6.7 6.4-8.2 GM/DL Albumin 3.9 3.2-4.5 GM/DL My Orders Orders - EMIR XIAO APRN Ct Head/Cervical Spine Wo (02/04/17 10:46) Ekg Tracing (02/04/17 10:46) BNP (02/04/17 10:52) Barron Cath Insertion (02/04/17 10:52) Fentanyl Injection (Sublimaze Injection (02/04/17 11:00) Vital Signs/I&O Vital Sign - Last 12Hours 02/04/17 10:00 Temp 97.6 Pulse 85 Resp 20 B/P (MAP) 138/75 (96) Pulse Ox 96 O2 Delivery Room Air Blood Pressure Mean: 96 Diagnostic Imaging Diagonstic Imaging: Xray Plain Films/CT/US/NM/MRI: chest Comments NAME: [facility] REC#: [id number] PT STATUS: REG ER : 1935 PHYSICIAN: KAY GAONA MD ADMIT DATE: 02/04/17/ER Signed Date of Exam:02/04/17 CHEST 1 VIEW, AP/PA ONLY INDICATION: Fall, fractured right femur. TECHNIQUE: An AP supine view of the chest was obtained. FINDINGS: The heart size and pulmonary vascularity are at the upper limits of normal given the supine technique. There is no evidence of pneumothorax or focal consolidation. No definite pleural fluid is seen. IMPRESSION: Borderline cardiomegaly and pulmonary venous congestion on this supine image. Followup PA and lateral views in the upright position would be useful. Dictated by: Dictated on workstation # [id number] Dict: 02/04/17 1043 Trans: 02/04/17 1045 [id number] Interpreted by: CELINA CERVANTES MD Electronically signed by: CELINA CERVANTES MD 02/04/17 1045 NAME: [facility] REC#: [id number] PT STATUS: REG ER : 1935 PHYSICIAN: KAY GAONA MD ADMIT DATE: 02/04/17/ER Draft Date of Exam:02/04/17 PELVIS WITH RIGHT HIP 2-3VIEWS INDICATION: Fall with right hip region pain. TECHNIQUE: An AP view of the pelvis was obtained with coned AP and crosstable lateral views of the right hip. FINDINGS: There is a subcapital fracture through the neck of the proximal right femur with mild overriding. No dislocation is identified. The remainder of the pelvis appears to be intact with mild to moderate lower lumbar spondylosis. IMPRESSION: Displaced, overriding subcapital fracture of the proximal right femur without dislocation. Dictated on workstation # [id number] Dict: 02/04/17 1044 Trans: 02/04/17 1046 [id number] Interpreted by: CELINA CERVANTES MD Electronically signed by: Departure Communication (Admissions) Time/Spoke to Admitting Phy: 11:[address] Wang from orthopedics. Dr. Cody will consult Time/Spoke to Consulting Phy: 11:08 Communication/Consulting Dr. Cody will consult. Tentative plan is for right hemiarthroplasty tonight at around 5 p.m. Impression Impression: Primary Impression: Hip fracture Disposition: 01 HOME, SELF-CARE Condition: Stable Admissions Decision to Admit Reason: Admit from ER (General) Decision to Admit/Date: Feb 04, 2017 Time/Decision to Admit Time: 11:07 Departure-Patient Inst. Referrals: DUNG KEYS DO (PCP/Family) Primary Care Physician EMIR XIAO APRN Feb 04, 2017 10:50
[2017-02-04] MEDS ORDERED: fentaNYL INJECTION 100 MCG/2 ML AMP IVP PRN (11:00)
--- NOTE | 2017-02-04 11:25 | Diagnostic Imaging Report ---
Clinical indication: Patient is status post fall yesterday. Patient hit head. Exam: Head CT without IV contrast. Axial CT scan of the cervical spine with sagittal and coronal reformations. Comparison: None. Findings: Head CT: There is cochlear implant device seen overlying the right posterior aspect of the skull which causes significant streak artifact obscuring large portions of the brain parenchyma predominantly involving the right posterior aspect of the head. Wall up right mastoidectomy changes are seen. Of note, evaluation of the cochlear implant is very limited on this exam. There is no gross CT evidence of intracranial hemorrhage, acute cerebral infarct, hydrocephalus, or brain herniation. The brain parenchymal volume appears appropriate for patient's age. There is subtle low-attenuation white matter changes in both cerebral hemispheres, likely representing chronic small vessel ischemic disease. Besides postop changes, the extracranial soft tissue, skull, and orbits are unremarkable. There is no evidence of acute cerebral infarct, intracranial hemorrhage, or gross mass effect. There is normal connell-white matter distinction. The brain parenchymal volume appears appropriate for patient's age. There is no significant midline shift or herniation. There is no evidence of hydrocephalus. The basal cisterns are unremarkable. There is no skull fracture. The skull, extracranial soft tissue, and orbits are unremarkable. The paranasal sinuses are unremarkable. Cervical spine: There is no acute cervical spine fracture. There is grade 1 anterolisthesis of C4 on C5 with no pars defect seen, likely degenerative. There is vertebral body spurs and facet arthropathy which are most hypertrophic seen at C4-C7 levels. There is moderate loss of intervertebral disc height at the C6-C7 level, severe loss at the C5-C6 level and mild loss at the C4-C5 level. There is severe right C5-C6 neural foramen narrowing and left C4-C5 bony neural foramen narrowing. There are other areas of mild to moderate bony neural foramen narrowing. The neck soft tissue structures show no significant abnormality. Limited visualization of the upper lung bolanos are unremarkable. Impression: 1: There is no evidence of acute intracranial process. There is no intracranial hemorrhage. 2: There is multilevel cervical spine degenerative disease with no acute cervical spine fracture. There is grade 1 anterolisthesis of C4 on C5 which is likely degenerative. 3: Age-related brain parenchymal changes. Dictated by: Dictated on workstation # [id number]
[2017-02-04 11:38] LABS: BILIRUBIN,URINE NEGATIVE (NEGATIVE); KETONES,URINE 2+ (NEGATIVE); LEUKOCYTE ESTERASE ,URINE NEGATIVE (NEGATIVE); NITRITE,URINE NEGATIVE (NEGATIVE); PH,URINE 6 (5-9); PROTEIN,URINE NEGATIVE (NEGATIVE); UROBILINOGEN,URINE NORMAL (NORMAL)
[2017-02-04 11:45] LABS: SQUAMOUS EPITHELIAL CELL,UR RARE /HPF
--- NOTE | 2017-02-04 12:01 | History & Physical-Hospitalist ---
HPI History of Present Illness: HPI/Chief Complaint CC: Right hip fracture HPI: This is a 81yoWF clinic patient of mine for the past 5 years who presents to the ER after falling off a curb and suffering a right femur fracture. She fell once on the pavement then fell again at home right thereafter. She has a h/ o RLS and IBS and recently had a colonoscopy which was normal per Dr Choudhury. I just referred her to Dr Brizuela to evaluate the dyspnea on exertion and ECHO revealed moderate aortic stenosis in 2012. I spoke to him and he will see her and obtain stat ECHO. Source: patient Exam Limitations: no limitations Date Seen 02/04/17 Time Seen by Provider: 11:30 Attending Physician Kaden Wang MD PCP Fely Keys DO Referring Physician Date of Admission Feb 04, 2017 at 11:00 Home Medications & Allergies Home Medications Reviewed patient Home Medication Reconciliation Form Allergies Allergies Coded Allergies No Known Drug Allergies (Unverified03/20/16) Past Pxxofur-Gzwumq-Zywouo Hx Patient Social History Marrital Status: Employed/Student: retired Alcohol Use: Denies Use Recreational Drug Use: No Smoking Status: Never a Smoker Recent Foreign Travel: No Contact w/other who traveled: No Recent Hopitalizations: No Recent Infectious Disease Expo: No Immunizations Up To Date Date of Pneumonia Vaccine: Jan 19, 2012 Date of Influenza Vaccine: Dec 07, 2012 Seasonal Allergies Seasonal Allergies: No Surgeries Yes Ear Surgery, Gallbladder Respiratory No Cardiovascular No Neurological No 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 System Hx 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 Disorders: No Sexually Transmitted Disease: No HIV/AIDS: No Genitourinary No Gastrointestinal Yes Gastroesophageal Reflux, Irritable Bowel Musculoskeletal Yes (RLS) Arthritis, Chronic Back Pain Endocrine History of Endocrine Disorders: No HEENT 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, Bilateral Hearing Aide Cancer No Psychosocial History of Psychiatric Problem: No Integumentary History of Skin or Integumenta: No Blood Transfusions History of Blood Disorders: No Adverse Reaction to a Blood Tr: No Review of Systems Constitutional: see HPI EENTM: no symptoms reported Respiratory: no symptoms reported Cardiovascular: no symptoms reported Gastrointestinal: no symptoms reported Genitourinary: no symptoms reported Musculoskeletal: joint pain (right leg) Psychiatric/Neurological: No Symptoms Reported All Other Systems Reviewed Negative Unless Noted: Yes Physical Exam Physical Exam Vital Signs Vital Sign - Last 12Hours 12/20/17 10:00 Temp 97.6 Pulse 85 Resp 20 B/P (MAP) 138/75 (96) Pulse Ox 96 O2 Delivery Room Air Capillary Refill : Less Than 3 Seconds General Appearance: No Apparent Distress, WD/WN Eyes: Bilateral Eye Normal Inspection, Bilateral Eye PERRL HEENT: PERRL/EOMI, Normal ENT Inspection, Pharynx Normal Neck: Full Range of Motion, Normal Inspection, Non Tender, Supple, Carotid Bruit Respiratory: Chest Non Tender, Lungs Clear, Normal Breath Sounds, No Accessory Muscle Use, No Respiratory Distress Cardiovascular: Regular Rate, Rhythm, No Edema, No Gallop, No JVD, Normal Peripheral Pulses, Systolic Murmur Gastrointestinal: Normal Bowel Sounds, No Organomegaly, No Pulsatile Mass, Non Tender, Soft Back: Normal Inspection, No CVA Tenderness, No Vertebral Tenderness Extremity: Normal Capillary Refill, Normal Inspection, Normal Range of Motion ( except right leg due to femur fracture), Non Tender, No Calf Tenderness, No Pedal Edema Neurologic/Psychiatric: Alert, Oriented x3, No Motor/Sensory Deficits, Normal Mood/Affect Skin: Normal Color, Warm/Dry Lymphatic: No Adenopathy Results Results/Procedures Lab Laboratory Tests 02/04/17 10:00 Assessment/Plan Admission Diagnosis Assessment: Acute right femur fracture sustained in fall at home History of moderate aortic stenosis in 2012 was in process of referral to Dr. Brizuela so stat echo ordered and Dr. Brizuela will see in consultation Restless leg syndrome Irritable bowel syndrome constipation predominant Assessment and Plan Plan: Proceed on with right femur fracture repair as planned at [address] Wang since benefits outweigh medical risk Inpatient rehabilitation eval Stat echo Dr. Brizuela consultation for aortic stenosis and will monitor for volume status postoperatively FELY KEYS DO Feb 04, 2017 12:01
[2017-02-04 12:40] VITALS: BP 130/63
[2017-02-04] MEDS ORDERED: OMEP20CA12 PO (12:48)
--- NOTE | 2017-02-04 12:54 | Consultation-Cardiology ---
HPI-Cardiology Cardiology Consultation: Date of Consultation 02/04/17 Time Seen by Provider: 13:05 Date of Admission Attending Physician Kaden Wang MD Admitting Physician Fely Mcintosh DO Consulting Physician LAYLA ELLISON MD, MA, FACP, FACC, FSCAI, CCDS HPI: Chief Complaint: Reason for consultation: Card eval prior to hip surgery 81 yo woman who took a nonsyncopal fall and broke her R hip for which she is now awaiting surgery. She does not report cp or palp or syncope. Has mild chronic exertional shortness of breath, unchanged. No leg swelling. Physically active and able to carry out ADLs w/o problems Review of Systems-Cardiology Review of Systems Constitutional: No weight loss, No weight gain Eyes: No vision change Ears/Nose/Throat: No ear discharge, No nasal drainage Respiratory: As described under HPI Cardiovascular: As described under HPI Gastrointestinal: No abdominal pain, No nausea/vomiting/diarrhea Genitourinary: No discharge, No hematuria Musculoskeletal: other (pain in R hip) Skin: No rash, No ulcerations Psychiatric/Neurological: No seizure, No focal weakness, No syncope Hematologic: No bleeding abnormalities All Other Systems Reviewed Negative Unless Noted: Yes LMS-Kvsqvb-Saftql Hx Patient Social History Marrital Status: Employed/Student: retired Alcohol Use: Denies Use Recreational Drug Use: No Smoking Status: Never a Smoker Recent Foreign Travel: No Recent Infectious Disease Expo: No Immunizations Up To Date Date of Pneumonia Vaccine: Jan 19, 2012 Date of Influenza Vaccine: Dec 07, 2012 Past Medical History PMH As described under Assessment. Family Medical History Family Medical History: Does not report fam h/o or early CAD or SCD Allergies and Home Medications Allergies Coded Allergies: No Known Drug Allergies (Unverified , 03/20/16) Home Medications Calcium Carbonate/Vitamin D3 1 Each Tablet, 1 TAB PO DAILY, (Reported) Magnesium Oxide 250 Mg Tablet, 250 MG PO DAILY, (Reported) Multivitamin 1 Each Tablet, 1 TAB PO DAILY, (Reported) Omeprazole 20 Mg Capsule.dr, 20 MG PO BID, (Reported) Ropinirole HCl 1 Mg Tablet, 1 MG PO HS, (Reported) Physical Exam-Cardiology Physical Exam Vital Signs/I&O Vital Sign - Last 12Hours 02/04/17 02/04/17 10:00 11:59 Temp 97.6 97.6 Pulse 85 Resp 20 B/P (MAP) 138/75 (96) Pulse Ox 96 O2 Delivery Room Air Capillary Refill : Less Than 3 Seconds Constitutional: AAO x 3, well-developed, well-nourished HEENT: hearing is well preserved, No xanthelasmas are seen Neck: carotid pulses are 2 + bilaterally, with good upstrokes Respiratory: No accessory muscle use, No respiratory distress, lungs clear to auscultation Cardiovascular: regular rate-rhythm, S1 and S2, systolic murmur (2/6 MSM at card base) Gastrointestinal: No tender, soft, No guarding, No rebound, audible bowel sounds Extremities: No clubbing, No cyanosis, No significant edema Neurologic/Psychiatric: oriented x 3, grossly intact, power is 5/5 both on sides Skin: No rash on exposed areas, No ulcerations on exposed areas Data Review Labs Laboratory Tests 02/04/17 10:00: White Blood Count 10.8, Red Blood Count 4.21L, Hemoglobin 13.6, Hematocrit 41, Mean Corpuscular Volume 96, Mean Corpuscular Hemoglobin 32, Mean Corpuscular Hemoglobin Concent 34, Red Cell Distribution Width 13.8, Platelet Count 135, Mean Platelet Volume 11.5H, Neutrophils (%) (Auto) 88H, Lymphocytes (%) (Auto) 4L, Monocytes (%) (Auto) 7, Eosinophils (%) (Auto) 0, Basophils (%) (Auto) 0, Neutrophils # (Auto) 9.5H, Lymphocytes # (Auto) 0.5L, Monocytes # (Auto) 0.8, Eosinophils # (Auto) 0.0, Basophils # (Auto) 0.0, Neutrophils % (Manual) 90, Lymphocytes % (Manual) 3, Monocytes % (Manual) 4, Reactive Lymphocytes 3, Blood Morphology Comment NORMAL, Sodium Level 139, Potassium Level 3.6, Chloride Level 105, Carbon Dioxide Level 25, Anion Gap 9, Blood Urea Nitrogen 17, Creatinine 0.71, Estimat Glomerular Filtration Rate > 60, BUN/Creatinine Ratio 24, Glucose Level 155H, Calcium Level 9.1, Total Bilirubin 1.5H, Aspartate Amino Transf (AST/SGOT) 26, Alanine Aminotransferase (ALT/SGPT) 19, Alkaline Phosphatase 118, Total Creatine Kinase 238H, B-Type Natriuretic Peptide 110.0H, Total Protein 6.7, Albumin 3.9 02/04/17 11:30: Urine Color YELLOW, Urine Clarity CLEAR, Urine pH 6, Urine Specific [place] 1.015L, Urine Protein NEGATIVE, Urine Glucose (UA) NEGATIVE, Urine Ketones 2+H, Urine Nitrite NEGATIVE, Urine Bilirubin NEGATIVE, Urine Urobilinogen NORMAL, Urine Leukocyte Esterase NEGATIVE, Urine RBC (Auto) 1+H, Urine RBC RARE, Urine WBC NONE, Urine Squamous Epithelial Cells RARE, Urine Crystals NONE, Urine Bacteria NEGATIVE, Urine Casts NONE, Urine Mucus NEGATIVE, Urine Culture Indicated NO Laboratory Tests 02/04/17 10:00 A/P-Cardiology Assessment/Admission Diagnosis R hip fracture after non-syncopal fall Severe aortic stenosis. Echo of shows aortic valve area 0.8 sq cm, LVEF 55-60%, PASP 35 mmHg and grade I diastolic dysfunction of the LV No significant CAD on card cath of 2012 H/o GERD Discussion and Recomendations * Cardiac risk for noncardiac surgery is estimated to be intermediate to high. I explained to her at length her cardiac condition and her card risk. She understands her risk and wishes to proceed * We recommend avoidance of perioperative hypotension * We recommend DVT prophylaxis with enoxaparin perioperatively LAYLA ELLISON MD FACP [facility] CCDS Feb 04, 2017 12:54
[2017-02-04] MEDS ORDERED: CALC-6 PO (12:55)
[2017-02-04] MEDS ORDERED: MULT-35 PO (12:55)
[2017-02-04] MEDS ORDERED: MAGN250T13 PO (12:55)
[2017-02-04] MEDS ORDERED: fentaNYL INJECTION 100 MCG/2 ML AMP IV PRN (14:00)
[2017-02-04] MEDS ORDERED: ONDANSETRON 4 MG/2 ML (SDV) Z0FRAN IV PRN (14:00)
[2017-02-04] MEDS: NS IV 1000 ML 1,000 ML IV SCH ×2 (14:00→22:23)
[2017-02-04] MEDS ORDERED: CATHETER FLUSH 10 ML SYR IV PRN (14:00)
[2017-02-04] MEDS ORDERED: INFLUENZA TRIvalent 2017-2018 0.5 ML/45 MCG SYR IM ONE (15:00)
[2017-02-04 15:13] VITALS: BP 130/63
[2017-02-04] MEDS ORDERED: RT-ALBUTEROL SULF 2.5 MG/3 ML PRE-MIX VIAL INH PRN (15:45)
[2017-02-04] MEDS ORDERED: ROCURONIUM 50 MG/5 ML (ZEMURON) VIAL IV ONE (16:21)
[2017-02-04] MEDS ORDERED: proPOfol 200 MG/20 ML (DIPRIVAN) VIAL IV ONE (16:21)
[2017-02-04] MEDS ORDERED: fentaNYL INJECTION 250 MCG/5 ML AMP ONE (16:21)
[2017-02-04 16:30] VITALS: BP 152/65
[2017-02-04] MEDS ORDERED: GENTAMICIN 40 MG/ML 2 ML INJ SDV ONE (16:46)
--- NOTE | 2017-02-04 17:04 | Consultation ---
History of Present Illness History of Present Illness Patient Consulted On(brandon/time) 02/04/17 16:58 Date Seen by Provider: Feb 04, 2017 Time Seen by Provider: 16:58 Reason for Visit: Right hip pain History of Present Illness This 81 year old female fell last night and hurt the right hip. She limped back to her house and sat for a while and then later she got up and slipped on a tile floor and could no longer bear weight on the right hip. At [facility] they diagnosed her with a right femoral neck fracture and admitted her. She is NPO. Cardiology has cleared her with caution due to severe aortic stenosis. She denies other injuries. Allergies and Home Medications Allergies Coded Allergies: No Known Drug Allergies (Unverified , 02/04/17) Home Medications Calcium Carbonate/Vitamin D3 1 Each Tablet, 1 TAB PO DAILY, (Reported) Magnesium Oxide 250 Mg Tablet, 250 MG PO DAILY, (Reported) Multivitamin 1 Each Tablet, 1 TAB PO DAILY, (Reported) Omeprazole 20 Mg Capsule.dr, 20 MG PO BID, (Reported) Ropinirole HCl 1 Mg Tablet, 1 MG PO HS, (Reported) Past Eunyfrb-Mrwtfd-Ljbaow Hx Patient Social History Alcohol Use: Denies Use Recreational Drug Use: No Smoking Status: Never a Smoker Recent Foreign Travel: No Contact w/Someone Who Travel: No Recent Infectious Disease Expo: No Recent Hopitalizations: No Immunizations Up To Date Date of Pneumonia Vaccine: Nov 17, 2011 Date of Influenza Vaccine: Dec 07, 2012 Seasonal Allergies Seasonal Allergies: No Surgeries History of Surgeries: No Surgeries: Ear Surgery, Gallbladder Respiratory History of Respiratory Disorde: No Cardiovascular History of Cardiac Disorders: Yes (AORTIC STENOSIS) Neurological History of Neurological Disord: Yes (RESTLESS LEG) 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 System : No Hx 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 Disorders: No Sexually Transmitted Disease: No HIV/AIDS: No Female 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 Disorders: Denies Genitourinary History of Genitourinary Disor: No Gastrointestinal History of Gastrointestinal Di: Yes Gastrointestinal Disorders: Gastroesophageal Reflux, Irritable Bowel Musculoskeletal History of Musculoskeletal Dis: Yes Musculoskeletal Disorders: Arthritis, Chronic Back Pain Endocrine History of Endocrine Disorders: No HEENT 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, Bilateral Hearing Aide Cancer History of Cancer: No Psychosocial History of Psychiatric Problem: No Integumentary History of Skin or Integumenta: No Blood Transfusions History of Blood Disorders: No Adverse Reaction to a Blood Tr: No Review of Systems-General Constitutional: no symptoms reported EENTM: no symptoms reported Respiratory: no symptoms reported Cardiovascular: no symptoms reported Genitourinary: no symptoms reported Musculoskeletal: see HPI Skin: no symptoms reported Psychiatric/Neurological: No Symptoms Reported Physical Exam-General Problems Physical Exam Vital Signs Vital Sign - Last 12Hours 02/04/17 10:00 Temp 97.6 Pulse 85 Resp 20 B/P (MAP) 138/75 (96) Pulse Ox 96 O2 Delivery Room Air Capillary Refill : Less Than 3 SecondsLess Than 3 Seconds General Appearance: WD/WN, no apparent distress Neck: non-tender Cardiovascular: normal peripheral pulses Back: no vertebral tenderness Extremities: no calf tenderness, normal capillary refill, pelvis stable, other (Right hip is shortened and externally rotated. Left leg atraumatic. Bruises in left palm but otherwise upper extremities are atraumatic) Neurologic/Psychiatric: no motor/sensory deficits, alert, normal mood/affect, oriented x 3 Skin: normal color, warm/dry Assessment/Plan Assessment/Plan Admission Diagnosis/Plan Right subcapital femoral neck fracture-- will go to surgery for bipolar hemiarthroplasty of the right hip. Severe aortic stenosis-- will be sure the anesthesia dept is aware and we will be careful with IV fluids Clinical Quality Measures DVT/VTE Risk/Contraindication: Risk Factor Score Per Nursin RFS Level Per Nursing on Admit: 4+=Very High MOOKIE PALMER MD Feb 04, 2017 17:04
[2017-02-04] MEDS: LACTATED RINGERS 1,000 ML IV PRN ×2 (17:15→18:10)
[2017-02-04] MEDS ORDERED: ceFAZolin 1,000 MG (ANCEF) VIAL ONE (17:20)
[2017-02-04] MEDS ORDERED: PHENYLEPHRINE 100 MCG/ML 10 ML (ANESTHESIA) SYR ONE (18:23)
[2017-02-04] MEDS ORDERED: SEVOFLURANE (ULTANE) 15 ML INHAL SOLN ONE ×4 (18:23→19:23)
[2017-02-04] MEDS ORDERED: HYDROmorphone (DILAUDID) 2 MG/ML VIAL ONE (18:33)
[2017-02-04] MEDS ORDERED: morphine INJ 10 MG/ML 1ML (SYR OR VIAL) ONE (18:33)
[2017-02-04] MEDS ORDERED: ONDANSETRON 4 MG/2 ML (SDV) Z0FRAN ONE (19:01)
--- NOTE | 2017-02-04 19:14 | Progress Note-Post Operative ---
Post-Operative Progess Note Surgeon (s)/Educational Coordinator (s) Surgeon MOOKIE PALMER MD Educational Coordinator: LORENZA ROSA APRN, PRESS MACHINE OPERATOR-C Pre-Operative Diagnosis RIGHT FEMORAL NECK FRACTURE Post-Operative Diagnosis SAME Procedure & Operative Findings Date of Procedure 02/04/17 Procedure Performed/Findings BIPOLAR HEMIARTHROPLASTY RIGHT HIP Anesthesia Type GENERAL Estimated Blood Loss Estimated blood loss (mL): 500 ML Specimens/Packing Specimens Removed NONE Packing: NONE MOOKIE PALMER MD Feb 04, 2017 19:14
[2017-02-04] MEDS ORDERED: SENNA W/DOCUSATE (SENOKOT S) TABLET PO PRN (19:30)
[2017-02-04] MEDS ORDERED: APAP 300 MG/CODEINE 30 MG (TYLENOL #3) TAB PO PRN (19:30)
[2017-02-04] MEDS ORDERED: ONDANSETRON 4 MG (ZOFRAN) ORAL DISSOLVE TAB PO PRN (19:30)
[2017-02-04] MEDS ORDERED: morphine INJ 4 MG/ML 1 ML (VIAL/SYRINGE) IVP PRN (19:30)
[2017-02-04] MEDS ORDERED: ONDANSETRON 4 MG/2 ML (SDV) Z0FRAN IVP PRN ×2 (19:30→19:45)
[2017-02-04] MEDS: RT-ALBUTEROL SULF 2.5 MG/3 ML PRE-MIX VIAL INH SCH (19:41)
[2017-02-04] MEDS ORDERED: MEPERIDINE (DEMEROL) INJ 50 MG/ML IVP PRN (19:45)
[2017-02-04] MEDS ORDERED: HYDROmorphone (DILAUDID) 2 MG/ML VIAL IVP PRN (19:45)
[2017-02-04] MEDS: morphine INJ 10 MG/ML 1ML (SYR OR VIAL) IVP PRN ×2 (19:45→19:53)
--- NOTE | 2017-02-04 20:15 | Diagnostic Imaging Report ---
INDICATION: Hip prosthesis. EXAMINATION: AP radiograph from surgery. FINDINGS: Anatomic alignment of the right prosthetic hip as seen in frontal projection. IMPRESSION: Postop right hip appears aligned anatomically at AP view. Dictated by: Dictated on workstation # [id number]
--- NOTE | 2017-02-04 20:16 | Diagnostic Imaging Report ---
INDICATION: Postop. FINDINGS: Right hip endoprosthesis projects in anatomic alignment. The contralateral left hip unremarkable. The obturator rings, symphysis and SI joints unremarkable. Residual osseous structures showing no fracture. IMPRESSION: Right hip prosthesis appeared normal and in good alignment. No acute pathological finding demonstrated. Dictated by: Dictated on workstation # [id number]
[2017-02-04 21:06] VITALS: BP 131/59
[2017-02-04] MEDS: DOCUSATE SODIUM 100 MG (COLACE) CAP PO SCH (21:21)
[2017-02-04] MEDS: ceFAZolin 2 GM/50 ML NS 50 ML IV SCH (23:55)
[2017-02-05] VITALS: BP 115/65
--- NOTE | 2017-02-05 03:22 | OPERATIVE REPORT ---
DATE OF SERVICE: 02/04/2017 PREOPERATIVE DIAGNOSIS: Right subcapital displaced femoral neck fracture. POSTOPERATIVE DIAGNOSIS: Right subcapital displaced femoral neck fracture. PROCEDURE: Bipolar hemiarthroplasty, right hip. SURGEON: Mookie Wang MD ASSISTING: Rafaela Sanders APRN nurse practitioner certified. Use of assistant basketball coach surgeon is medically indicated for patient positioning, retraction, wound closure, application of sterile dressings. ANESTHESIA: General. BLOOD LOSS: 500 mL. COMPLICATIONS: None. SPECIMENS: None. IMPLANTS: DePuy Tri-Lock size zero press-fit femoral stem, standard offset with a 28 mm femoral head a +5 mm neck length with a 45 mm bipolar head. INDICATIONS: This lady fell last night and fractured the right hip and comes to surgery for surgical repair. PROCEDURE IN DETAIL: After informed consent, the patient transported to the operating room. She was placed on the operative table in supine position. General anesthesia was induced. She was then turned to the left lateral decubitus position on the pegboard. Axillary roll was placed. Bony prominences were carefully padded and protected. The right lower extremity was prepped with ChloraPrep and was draped in sterile fashion, and Ioban was placed on the skin. A curvilinear incision was made over the lateral aspect of the right hip. The gluteus fascia and fascia dorothea were split in line with the skin incision and the Charnley self-retaining hip retractor was placed. A direct lateral approach was utilized. The abductors were split anteriorly and superiorly in line with their fibers and then the anterior aspect of the gluteus medius and minimus tendons were elevated from the anterior greater trochanter as the hip was externally rotated. Capsule was opened in a T-fashion. The femoral neck was resected with a sagittal saw. The femoral head was removed from the acetabulum with the corkscrew. No degenerative changes were noted of the cartilage. Then, the hip was flexed and externally rotated. The canal was opened and then the proximal femur was noted to be very small. I used the starting lateralization broach and then the size zero broach, which fit very tight length. I felt that going up and sizing the broach would likely split the proximal femur. The zero broach was quite stable. I trialled off of that. It was placed in 15 degrees of anteversion. I used the +5 and then the +8 and was pleased with the +5 neck length, then a 45 head. The hip was reduced and felt to be stable. Leg length appeared to be equal. AP pelvis x-ray showed satisfactory placement. The hip then was dislocated with a bone hook. The trial was removed. The canal was irrigated with pulse lavage and then a size zero stem was impacted for good press-fit, and then the femoral head and bipolar head were impacted on the stem. The hip was again reduced and felt to be stable. The joint was thoroughly irrigated that the capsule was closed with #5 Ethibond and the abductors were repaired with #5 Ethibond suture to the greater trochanter as well as interrupted #1 Vicryl suture. The gluteus fascia and fascia dorothea were closed with a running double layered #1 Stratafix suture and #1 Vicryl suture. Subcutaneous tissues were closed with running interrupted 2-0 Vicryl and skin was repaired with siobhan. Sterile dressings were applied. The patient was transported to the recovery room in stable condition. Job ID: [id number] DocumentID: [id number] Dictated Date: 02/04/2017 19:13:36 Sales Supervisor Date: 02/05/2017 03:21:00 Dictated By: MOOKIE WANG MD
[2017-02-05 04:10] VITALS: BP 105/63
[2017-02-05] MEDS: ceFAZolin 2 GM/50 ML NS 50 ML IV SCH ×3 (05:51→18:54)
[2017-02-05 06:09] LABS: BASOPHILS % (AUTO) 0 % (0-10); EOSINOPHILS # (AUTO) 0.1 10^3/uL (0.0-0.3); EOSINOPHILS % (AUTO) 1 % (0-10); LYMPHOCYTES # (AUTO) 1.1 X 10^3 (1.0-4.0); LYMPHOCYTES % (AUTO) 13 % (12-44); MEAN CORPUSCULAR HEMOGLOBIN 33 PG (25-34); MEAN CORPUSCULAR HGB CONC 33 G/DL (32-36); MEAN CORPUSCULAR VOLUME 100 FL (80-99); MEAN PLATELET VOLUME 10.6 FL (7.4-10.4); MONOCYTES # (AUTO) 0.8 X 10^3 (0.0-1.0); MONOCYTES % (AUTO) 9 % (0-12); NEUTROPHILS # (AUTO) 6.7 X 10^3 (1.8-7.8); NEUTROPHILS % (AUTO) 77 % (42-75); PLATELET COUNT 106 10^3/uL (130-400); RED BLOOD COUNT 3.34 10^6/uL (4.35-5.85); RED CELL DISTRIBUTION WIDTH 14.3 % (10.0-14.5); WHITE BLOOD COUNT 8.7 10^3/uL (4.3-11.0)
[2017-02-05 06:42] LABS: ALANINE AMINOTRANSFERASE 15 U/L (0-55); ALBUMIN 2.9 GM/DL (3.2-4.5); ANION GAP 8 MMOL/L (5-14); ASPARTATE AMINO TRANSFERASE 30 U/L (5-34); BILIRUBIN,TOTAL 1.2 MG/DL (0.1-1.0); BLOOD UREA NITROGEN 11 MG/DL (7-18); BUN/CREATININE RATIO 16; CALCIUM 8.1 MG/DL (8.5-10.1); CARBON DIOXIDE 26 MMOL/L (21-32); CHLORIDE 107 MMOL/L (98-107); GFR ESTIMATED > 60; GLUCOSE 132 MG/DL (70-105); POTASSIUM 4.4 MMOL/L (3.6-5.0); SODIUM 141 MMOL/L (135-145); TOTAL PROTEIN 5.1 GM/DL (6.4-8.2)
[2017-02-05 08:00] VITALS: BP 108/59
[2017-02-05] MEDS: DOCUSATE SODIUM 100 MG (COLACE) CAP PO SCH ×2 (09:04→20:39)
[2017-02-05] MEDS: RT-ALBUTEROL SULF 2.5 MG/3 ML PRE-MIX VIAL INH SCH ×2 (09:17→19:48)
--- OUTSIDE RECORDS SUMMARY | 2017-02-05 09:32 | XMS REPORT | Continuity of Care Document ---
Author Author [facility] Organization [facility] Address Unknown Phone Unavailable Allergies Active Description Code Type Severity Reaction Onset Reported/Identified Relationship to Patient Clinical Status Yes NKANo Known Allergies NKA Miscellaneous Allergy Unknown N/A 10/06/2005 Yes No Known Drug Allergies [id number] Drug Allergy Unknown N/A 02/04/2017 Medications There is no data. Problems Date Dx Coded Attending Type Code Diagnosis Diagnosed By 12/07/2012 SCOT HUNTER FACC, LAYLA GONZALEZ CCDS Ot 424.1 AORTIC VALVE DISORDER 12/07/2012 SCOT HUNTER FACC, LAYLA GONZALEZ CCDS Ot 530.81 ESOPHAGEAL REFLUX 12/07/2012 LAYLA ELLISON MD, FACC, FACP CCDS Ot 786.09 RESPIRATORY ABNORM NEC 12/07/2012 SCOT HUNTER FACC, [facility]LA [facility] CCDS Ot 786.59 CHEST PAIN NEC 12/07/2012 SCOT HUNTER FACC, LAYLA [facility] CCDS Ot V58.69 OTH MED,LT,CURRENT USE 11/14/2013 MADY HAYNES MD Ot 721.3 LUMBOSACRAL SPONDYLOSIS 11/14/2013 MADY HAYNES MD Ot 722.52 LUMB/LUMBOSAC DISC DEGEN 11/14/2013 MADY HAYNES MD Ot V58.69 OTH MED,LT,CURRENT USE 01/31/2014 KEYS DO, DUNG Ot V76.12 01/31/2014 KEYS DO, DUNG Ot V76.12 02/06/2014 COLLINS CARDOSO MD Ot 211.3 BENIGN NEOPLASM LG BOWEL 02/06/2014 COLLINS CARDOSO MD Ot 530.3 ESOPHAGEAL STRICTURE 02/06/2014 COLLINS CARDOSO MD Ot 530.81 ESOPHAGEAL REFLUX 02/06/2014 COLLINS CARDOSO MD Ot 535.40 OTH SPECIFIED GASTRITIS,W/O MENTION OF H 02/06/2014 COLLINS CARDOSO MD Ot 553.3 DIAPHRAGMATIC HERNIA 02/06/2014 COLLINS CARDOSO MD Ot 562.10 DIVERTICULOSIS COLON (W/O MENT OF HEMORR 02/06/2014 JANAE HUNTER, COLLINS Gutierrez Ot 787.99 OTHER GI SYSTEM SYMPTOMS 02/20/2014 KEYS DO, DUNG Ot 285.9 02/20/2014 KEYS DO, DUNG Ot 333.94 02/20/2014 KEYS DO, DUNG Ot 356.9 02/20/2014 KEYS DO, DUNG Ot 530.81 02/20/2014 KEYS DO, DUNG Ot 724.4 02/20/2014 KEYS DO, DUNG Ot V58.69 02/22/2014 KEYS DO, DUNG Ot V76.12 07/03/2014 KEYS DO, DUNG Ot 285.9 07/03/2014 KEYS DO, DUNG Ot 333.94 07/03/2014 KEYS DO, DUNG Ot 356.9 07/03/2014 KEYS DO, DUNG Ot 530.81 07/03/2014 KEYS DO, DUNG Ot 564.1 07/03/2014 KEYS DO, DUNG Ot 724.4 07/03/2014 KEYS DO, DUNG Ot 789.07 07/03/2014 KEYS DO, DUNG Ot V58.69 07/03/2014 KEYS DO, DUNG Ot V58.83 07/28/2014 KEYS DO, DUNG Ot 285.9 07/28/2014 KEYS DO, DUNG Ot 333.94 07/28/2014 KEYS DO, DUNG Ot 356.9 07/28/2014 KEYS DO, DUNG Ot 530.81 07/28/2014 KEYS DO, DUNG Ot 564.1 07/28/2014 KEYS DO, DUNG Ot 724.4 07/28/2014 KEYS DO, DUNG Ot 789.07 07/28/2014 KEYS DO, DUNG Ot V58.69 07/28/2014 KEYS DO, DUNG Ot V58.83 02/13/2015 KEYS DO, DUNG Ot D64.9 02/13/2015 KEYS DO, DUNG Ot Z00.00 07/18/2015 KEYS DO, DUNG Ot D64.9 ANEMIA, UNSPECIFIED 07/18/2015 KEYS DO, DUNG Ot Z00.00 ENCNTR FOR GENERAL ADULT MEDICAL EXAM W/ 07/19/2015 KEYS DO DUNG Ot D64.9 ANEMIA, UNSPECIFIED 07/19/2015 KEYS DOAMBROSEI Ot Z00.00 ENCNTR FOR GENERAL ADULT MEDICAL EXAM W08/10/2015 KEYS DO DUNG Ot D64.9 ANEMIA, UNSPECIFIED 08/10/2015 KEYS DO DUNG Ot Z00.00 ENCNTR FOR GENERAL ADULT MEDICAL EXAM W/ 08/10/2015 KEYS DOAMBROSEI Ot D64.9 ANEMIA, UNSPECIFIED 08/10/2015 KEYS DO, DNUG Ot Z00.00 ENCNTR FOR GENERAL ADULT MEDICAL EXAM W/ 08/31/2015 Ot 611.89 OTHER SPECIFIED DISORDERS OF BREAST 08/31/2015 Ot V76.12 OTH SCREEN MAMMO-MALIGN NEOPLASM OF FRANC 08/31/2015 Ot 721.3 LUMBOSACRAL SPONDYLOSIS 08/31/2015 Ot 722.52 LUMB/ LUMBOSAC DISC DEGEN 08/31/2015 Ot 733.90 BONE CARTILAGE DIS NOS 08/31/2015 Ot V76.12 OTH SCREEN MAMMO-MALIGN NEOPLASM OF FRANC 08/31/2015 DUNG KEYS DO Ot 251.1 HYPOGLYCEMIA NEC 08/31/2015 DUNG KEYS DO Ot 251.2 HYPOGLYCEMIA NOS 08/31/2015 AMBROSE KEYS DOI Ot 272.0 PURE HYPERCHOLESTEROLEM 08/31/2015 LUDMILA ORTIZ DUNG Ot 285.9 ANEMIA NOS 08/31/2015 LUDMILA ORTIZ DUNG Ot 356.9 IDIO PERIPH NEURPTHY NOS 08/31/2015 DUNG KEYS DO Ot 729.5 PAIN IN LIMB 08/31/2015 LUDMILA ORTIZ DUNG Ot 780.2 SYNCOPE AND COLLAPSE 08/31/2015 LUDMILA ORTIZ DUNG Ot 780.4 DIZZINESS AND GIDDINESS 08/31/2015 SCOT HUNTER FACC, LAYLA GONZALEZ CCDS Ot 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 08/31/2015 SCOT HUNTER FACC, LAYLA GONZALEZ CCDS Ot 397.0 TRICUSPID VALVE DISEASE 08/31/2015 SCOT HUNTER FACC, LAYLA GONZALEZ CCDS Ot 786.59 CHEST PAIN NEC 08/31/2015 DUNG KEYS DO Ot V76.12 OTH SCREEN MAMMO-MALIGN NEOPLASM OF FRANC 08/31/2015 KEYS DO, DUNG Ot 285.9 ANEMIA NOS 08/31/2015 KEYS DO DUNG Ot 579.0 CELIAC DISEASE 08/31/2015 KEYS DO DUNG Ot 729.1 MYALGIA AND MYOSITIS NOS 08/31/2015 KEYS DO DUNG Ot 729.2 NEURALGIA/NEURITIS NOS 08/31/2015 KEYS DO DUNG Ot 786.50 CHEST PAIN NOS 08/31/2015 LUDMILA DO DUNG Ot V58.69 OTH MED,LT,CURRENT USE 08/31/2015 KEYS DO DUNG Ot 285.9 ANEMIA NOS 08/31/2015 KEYS DO, DUNG Ot 333.94 RESTLESS LEGS SYNDROME 08/31/2015 KEYS DO DUNG Ot 356.9 IDIO PERIPH NEURPTHY NOS 08/31/2015 LUDMILA DO DUNG Ot 530.81 ESOPHAGEAL REFLUX 08/31/2015 KEYS DO DUNG Ot 724.4 LUMBOSACRAL NEURITIS NOS 08/31/2015 LUDMILA ORTIZ DUNG Ot V58.69 OTH MED,LT,CURRENT USE 08/31/2015 LUDMILA DO DUNG Ot V76.12 OTH SCREEN MAMMO-MALIGN NEOPLASM OF FRANC 08/31/2015 JANAE HUNTER, COLLINS Gutierrez Ot V72.84 EXAM PRE-OPERATIVE NOS 08/31/2015 LUDMILA DO DUNG Ot 285.9 ANEMIA NOS 08/31/2015 LUDMILA DO DUNG Ot 333.94 RESTLESS LEGS SYNDROME 08/31/2015 KEYS DO DUNG Ot 356.9 IDIO PERIPH NEURPTHY NOS 08/31/2015 LUDMILA DO DUNG Ot 530.81 ESOPHAGEAL REFLUX 08/31/2015 KEYS DO DUNG Ot 564.1 IRRITABLE BOWEL SYNDROME 08/31/2015 KEYS DO DUNG Ot 724.4 LUMBOSACRAL NEURITIS NOS 08/31/2015 LUDMILA DO DUNG Ot 789.07 ABDOMINAL PAIN, GENERALIZED 08/31/2015 LUDMILA DO DUNG Ot V58.69 OTH MED,LT,CURRENT USE 08/31/2015 KEYS DO, DUNG Ot V58.83 ENCOUNTER FOR THERAPEUTIC DRUG MONITORIN 08/31/2015 LUDMILA DO DUNG Ot D64.9 ANEMIA, UNSPECIFIED 08/31/2015 LUDMILA ORTIZ DUNG Ot Z00.00 ENCNTR FOR GENERAL ADULT MEDICAL EXAM W/ 08/31/2015 KEYSAMBRSOE HASSAN DOI Ot D64.9 ANEMIA, UNSPECIFIED 08/31/2015 KEYS DO DUNG Ot Z00.00 ENCNTR FOR GENERAL ADULT MEDICAL EXAM W/ 08/31/2015 KEYSSONYA ORTIZ DUNG Ot D64.9 ANEMIA, UNSPECIFIED 08/31/2015 KEYSAMBROSE HASSAN DOI Ot Z00.00 ENCNTR FOR GENERAL ADULT MEDICAL EXAM W09/03/2015 JANAE HUNTER, COLLINS Gutierrez Ot R10.11 RIGHT UPPER QUADRANT PAIN 10/05/2015 JANAE HUNTER, COLLINS Gutierrez Ot R10.11 RIGHT UPPER QUADRANT PAIN 10/15/2015 JANAE HUNTER, COLLINS Gutierrez Ot R10.11 RIGHT UPPER QUADRANT PAIN 01/15/2016 Ot 721.3 LUMBOSACRAL SPONDYLOSIS 01/15/2016 Ot 722.52 LUMB/ LUMBOSAC DISC DEGEN 01/15/2016 Ot 733.90 BONE CARTILAGE DIS NOS 01/15/2016 Ot V76.12 OTH SCREEN MAMMO-MALIGN NEOPLASM OF FRANC 01/15/2016 AMBROSE KEYS DOI Ot 251.1 HYPOGLYCEMIA NEC 01/15/2016 AMBROSE KEYS DOI Ot 251.2 HYPOGLYCEMIA NOS 01/15/2016 LUDMILA ORTIZ DUNG Ot 272.0 PURE HYPERCHOLESTEROLEM 01/15/2016 LUDMILA ORTIZ DUNG Ot 285.9 ANEMIA NOS 01/15/2016 LUDMILA ORTIZ DUNG Ot 356.9 IDIO PERIPH NEURPTHY NOS 01/15/2016 DUNG KYES DO Ot 729.5 PAIN IN LIMB 01/15/2016 LUDMILA ORTIZ DUNG Ot 780.2 SYNCOPE AND COLLAPSE 01/15/2016 LUDMILA ORTIZ DUNG Ot 780.4 DIZZINESS AND GIDDINESS 01/15/2016 SCOT HUNTER FACC, LAYLA GONZALEZ CCDS Ot 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 01/15/2016 SCOT HUNTER FACC, LAYLA DAVILAP CCDS Ot 397.0 TRICUSPID VALVE DISEASE 01/15/2016 SCOT HUNTER FACC, LAYLA GONZALEZ CCDS Ot 786.59 CHEST PAIN NEC 01/15/2016 DUNG KEYS DO Ot V76.12 OTH SCREEN MAMMO-MALIGN NEOPLASM OF FRANC 01/15/2016 KEYS DO, DUNG Ot 285.9 ANEMIA NOS 01/15/2016 KEYS DO DUNG Ot 579.0 CELIAC DISEASE 01/15/2016 KEYS DO DUNG Ot 729.1 MYALGIA AND MYOSITIS NOS 01/15/2016 KEYS DO DUGN Ot 729.2 NEURALGIA/NEURITIS NOS 01/15/2016 LUDMILA DO DUNG Ot 786.50 CHEST PAIN NOS 01/15/2016 LUDMILA DO DUNG Ot V58.69 OTH MED,LT,CURRENT USE 01/15/2016 KEYS DO DUNG Ot 285.9 ANEMIA NOS 01/15/2016 KEYS DO, DUNG Ot 333.94 RESTLESS LEGS SYNDROME 01/15/2016 KEYS DO DUNG Ot 356.9 IDIO PERIPH NEURPTHY NOS 01/15/2016 LUDMILA DO DUNG Ot 530.81 ESOPHAGEAL REFLUX 01/15/2016 LUDMILA DO DUNG Ot 724.4 LUMBOSACRAL NEURITIS NOS 01/15/2016 LUDMILA ORTIZ DUNG Ot V58.69 OTH MED,LT,CURRENT USE 01/15/2016 LUDMILA DO DUNG Ot V76.12 OTH SCREEN MAMMO-MALIGN NEOPLASM OF FRANC 01/15/2016 JANAE HUNTER, COLLINS Gutierrez Ot V72.84 EXAM PRE-OPERATIVE NOS 01/15/2016 LUDMILA DO DUNG Ot 285.9 ANEMIA NOS 01/15/2016 LUDMILA DO DUNG Ot 333.94 RESTLESS LEGS SYNDROME 01/15/2016 LUDMILA DO DUNG Ot 356.9 IDIO PERIPH NEURPTHY NOS 01/15/2016 LUDMILA DO DUNG Ot 530.81 ESOPHAGEAL REFLUX 01/15/2016 LUDMILA DO DUNG Ot 564.1 IRRITABLE BOWEL SYNDROME 01/15/2016 KEYS DO DUNG Ot 724.4 LUMBOSACRAL NEURITIS NOS 01/15/2016 LUDMILA DO DUNG Ot 789.07 ABDOMINAL PAIN, GENERALIZED 01/15/2016 LUDMILA DO DUNG Ot V58.69 OTH MED,LT,CURRENT USE 01/15/2016 KEYS DO DUNG Ot V58.83 ENCOUNTER FOR THERAPEUTIC DRUG MONITORIN 01/15/2016 LUDMILA DO DUNG Ot D64.9 ANEMIA, UNSPECIFIED 01/15/2016 KEYS DO, DUNG Ot Z00.00 ENCNTR FOR GENERAL ADULT MEDICAL EXAM W01/15/2016 KEYS DO, DUNG Ot D64.9 ANEMIA, UNSPECIFIED 01/15/2016 KEYS DO, DUNG Ot Z00.00 ENCNTR FOR GENERAL ADULT MEDICAL EXAM W01/15/2016 KEYS DO, DUNG Ot D64.9 ANEMIA, UNSPECIFIED 01/15/2016 KEYS DO, DUNG Ot Z00.00 ENCNTR FOR GENERAL ADULT MEDICAL EXAM W01/15/2016 JANAE HUNTER, COLLINS Gutierrez Ot R10.11 RIGHT UPPER QUADRANT PAIN 01/15/2016 KEYS DO, DUNG Ot D64.9 ANEMIA, UNSPECIFIED 01/15/2016 KEYS DO, DUNG Ot E78.00 PURE HYPERCHOLESTEROLEMIA, UNSPECIFIED 01/15/2016 KEYS DO, DUNG Ot E78.1 PURE HYPERGLYCERIDEMIA 01/15/2016 KEYS DO, DUNG Ot Z00.00 ENCNTR FOR GENERAL ADULT MEDICAL EXAM W02/05/2016 KEYS DO, DUNG Ot D64.9 ANEMIA, UNSPECIFIED 02/05/2016 KEYS DO, DUNG Ot E78.00 PURE HYPERCHOLESTEROLEMIA, UNSPECIFIED 02/05/2016 KEYS DO, DUNG Ot E78.1 PURE HYPERGLYCERIDEMIA 02/05/2016 KEYS DO, DUNG Ot Z00.00 ENCNTR FOR GENERAL ADULT MEDICAL EXAM W02/11/2016 Ot 721.3 LUMBOSACRAL SPONDYLOSIS 02/11/2016 Ot 722.52 LUMB/ LUMBOSAC DISC DEGEN 02/11/2016 Ot 733.90 BONE CARTILAGE DIS NOS 02/11/2016 Ot V76.12 OTH SCREEN MAMMO-MALIGN NEOPLASM OF FRANC 02/11/2016 LUDMILA DO DUNG Ot 251.1 HYPOGLYCEMIA NEC 02/11/2016 LUDMILA DO DUNG Ot 251.2 HYPOGLYCEMIA NOS 02/11/2016 LUDMILA ORTIZ DUNG Ot 272.0 PURE HYPERCHOLESTEROLEM 02/11/2016 LUDMILA DO DUNG Ot 285.9 ANEMIA NOS 02/11/2016 LUDMILA DO DUNG Ot 356.9 IDIO PERIPH NEURPTHY NOS 02/11/2016 LUDMILA ORTIZ DUNG Ot 729.5 PAIN IN LIMB 02/11/2016 KEYS DO, DUNG Ot 780.2 SYNCOPE AND COLLAPSE 02/11/2016 LUDMILA ORTIZ DUNG Ot 780.4 DIZZINESS AND GIDDINESS 02/11/2016 SCOT HUNTER [facility], LAYLA [facility] CCDS Ot 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 02/11/2016 SCOT HUNTER FACC, [facility] CCDS Ot 397.0 TRICUSPID VALVE DISEASE 02/11/2016 SCOT HUNTER [facility], [facility] CCDS Ot 786.59 CHEST PAIN NEC 02/11/2016 LUDMILA DO DUNG Ot V76.12 OTH SCREEN MAMMO-MALIGN NEOPLASM OF FRANC 02/11/2016 KEYS DO, DUNG Ot 285.9 ANEMIA NOS 02/11/2016 KEYS DO, DUNG Ot 579.0 CELIAC DISEASE 02/11/2016 KEYS DO DUNG Ot 729.1 MYALGIA AND MYOSITIS NOS 02/11/2016 KEYS DO DUNG Ot 729.2 NEURALGIA/NEURITIS NOS 02/11/2016 LUDMILA DO DUNG Ot 786.50 CHEST PAIN NOS 02/11/2016 LUDMILA DO DUNG Ot V58.69 OTH MED,LT,CURRENT USE 02/11/2016 KEYS DO, DUNG Ot 285.9 ANEMIA NOS 02/11/2016 KEYS DO, DUNG Ot 333.94 RESTLESS LEGS SYNDROME 02/11/2016 KEYS DO DUNG Ot 356.9 IDIO PERIPH NEURPTHY NOS 02/11/2016 KEYS DO DUNG Ot 530.81 ESOPHAGEAL REFLUX 02/11/2016 KEYS DO DUNG Ot 724.4 LUMBOSACRAL NEURITIS NOS 02/11/2016 LUDMILA ORTIZ DUNG Ot V58.69 OTH MED,LT,CURRENT USE 02/11/2016 KEYS DO, DUNG Ot V76.12 OTH SCREEN MAMMO-MALIGN NEOPLASM OF FRANC 02/11/2016 JANAE HUNTER, COLLINS Gutierrez Ot V72.84 EXAM PRE-OPERATIVE NOS 02/11/2016 KEYS DO, DUNG Ot 285.9 ANEMIA NOS 02/11/2016 KEYS DO, DUNG Ot 333.94 RESTLESS LEGS SYNDROME 02/11/2016 KEYS DO DUNG Ot 356.9 IDIO PERIPH NEURPTHY NOS 02/11/2016 LUDMILA ORTIZ DUNG Ot 530.81 ESOPHAGEAL REFLUX 02/11/2016 KEYS DO, DUNG Ot 564.1 IRRITABLE BOWEL SYNDROME 02/11/2016 KEYS DO, DUNG Ot 724.4 LUMBOSACRAL NEURITIS NOS 02/11/2016 KEYS DO, DUNG Ot 789.07 ABDOMINAL PAIN, GENERALIZED 02/11/2016 LUDMILA DO DUNG Ot V58.69 OTH MED,LT,CURRENT USE 02/11/2016 LUDMILA DO, DUNG Ot V58.83 ENCOUNTER FOR THERAPEUTIC DRUG MONITORIN 02/11/2016 KEYS DO, DUNG Ot D64.9 ANEMIA, UNSPECIFIED 02/11/2016 KEYS DO, DUNG Ot Z00.00 ENCNTR FOR GENERAL ADULT MEDICAL EXAM W02/11/2016 KEYS DO, DUNG Ot D64.9 ANEMIA, UNSPECIFIED 02/11/2016 KEYS DO, DUNG Ot Z00.00 ENCNTR FOR GENERAL ADULT MEDICAL EXAM W02/11/2016 KEYS DO, DUNG Ot D64.9 ANEMIA, UNSPECIFIED 02/11/2016 KEYS DO, DUNG Ot Z00.00 ENCNTR FOR GENERAL ADULT MEDICAL EXAM W02/11/2016 JANAE HUNTER, COLLINS Gutierrez Ot R10.11 RIGHT UPPER QUADRANT PAIN 02/11/2016 KEYS DO, DUNG Ot D64.9 ANEMIA, UNSPECIFIED 02/11/2016 KEYS DO, DUNG Ot E78.00 PURE HYPERCHOLESTEROLEMIA, UNSPECIFIED 02/11/2016 KEYS DO, DUNG Ot E78.1 PURE HYPERGLYCERIDEMIA 02/11/2016 KEYS DO, DUNG Ot Z00.00 ENCNTR FOR GENERAL ADULT MEDICAL EXAM W02/12/2016 COSENS DO, KLEVER L Ot J18.9 PNEUMONIA, UNSPECIFIED ORGANISM 02/13/2016 CHELSEAENS DO, KLEVER L Ot J18.9 PNEUMONIA, UNSPECIFIED ORGANISM 03/07/2016 JC ORTIZ, KLEVER L Ot J18.9 PNEUMONIA, UNSPECIFIED ORGANISM 03/21/2016 JANAE HUNTER, COLLINS Gutierrez Ot K21.9 GASTRO-ESOPHAGEAL REFLUX DISEASE WITHOUT 03/21/2016 JANAE HUNTER, COLLINS Gutierrez Ot Z01.818 ENCOUNTER FOR OTHER PREPROCEDURAL EXAMIN 03/24/2016 JANAE HUNTER, COLLINS Gutierrez Ot K22.2 ESOPHAGEAL OBSTRUCTION 03/24/2016 JANAE HUNTER, COLLINS M Ot K29.70 GASTRITIS, UNSPECIFIED, WITHOUT BLEEDING 03/24/2016 JANAE HUNTER, COLLINS Gutierrez Ot K44.9 DIAPHRAGMATIC HERNIA WITHOUT OBSTRUCTION 03/24/2016 JANAE HUNTER, COLLINS Gutierrez Ot R13.10 DYSPHAGIA, UNSPECIFIED 03/25/2016 JANAE HUNTER, COLLINS M Ot K22.2 ESOPHAGEAL OBSTRUCTION 03/25/2016 JANAE HUNTER, COLLINS Gutierrez Ot K29.70 GASTRITIS, UNSPECIFIED, WITHOUT BLEEDING 03/25/2016 JANAE HUNTER, COLLINS Gutierrez Ot K44.9 DIAPHRAGMATIC HERNIA WITHOUT OBSTRUCTION 03/25/2016 JANAE HUNTER, COLLINS M Ot R13.10 DYSPHAGIA, UNSPECIFIED 03/27/2016 JANAE HUNTER, COLLINS M Ot K22.2 ESOPHAGEAL OBSTRUCTION 03/27/2016 JANAE HUNTER, COLLINS M Ot K29.70 GASTRITIS, UNSPECIFIED, WITHOUT BLEEDING 03/27/2016 JANAE HUNTER, COLLINS Gutierrez Ot K44.9 DIAPHRAGMATIC HERNIA WITHOUT OBSTRUCTION 03/27/2016 JANAE HUNTER, COLLINS Gutierrez Ot R13.10 DYSPHAGIA, UNSPECIFIED 11/06/2016 JANAE HUNTER, COLLINS Gutierrez Ot R19.4 CHANGE IN BOWEL HABIT 11/06/2016 COLLINS CARDOSO MD Ot Z01.818 ENCOUNTER FOR OTHER PREPROCEDURAL EXAMIN 11/17/2016 COLLINS CARDOSO MD Ot K21.9 GASTRO-ESOPHAGEAL REFLUX DISEASE WITHOUT 11/17/2016 COLLINS CARDOSO MD Ot K57.30 DVRTCLOS OF LG INT W/O PERFORATION OR AB 11/17/2016 COLLINS CARDOSO MD Ot K63.5 POLYP OF COLON 11/18/2016 COLLINS CARDOSO MD Ot K21.9 GASTRO-ESOPHAGEAL REFLUX DISEASE WITHOUT 11/18/2016 COLLINS CARDOSO MD Ot K57.30 DVRTCLOS OF LG INT W/O PERFORATION OR AB 11/18/2016 COLLINS CARDOSO MD Ot K63.5 POLYP OF COLON 11/25/2016 COLLINS CARDOSO MD Ot K21.9 GASTRO-ESOPHAGEAL REFLUX DISEASE WITHOUT 11/25/2016 COLLINS CARDOSO MD Ot K57.30 DVRTCLOS OF LG INT W/O PERFORATION OR AB 11/25/2016 COLLINS CARDOSO MD Ot K63.5 POLYP OF COLON Procedures There is no data. Results Test Result Range Complete blood count (CBC) with automated white blood cell (WBC) differential - 01/15/16 08:40 Blood leukocytes automated count (number/volume) 5.1 10*3/uL 4.3-11.0 Blood erythrocytes automated count (number/volume) 4.08 10*6/uL 4.35-5.85 Venous blood hemoglobin measurement (mass/volume) 12.9 g/dL 11.5-16.0 Blood hematocrit (volume fraction) 39 % 35-52 Automated erythrocyte mean corpuscular volume 96 [foz_us] 80-99 Automated erythrocyte mean corpuscular hemoglobin (mass per erythrocyte) 32 pg 25-34 Automated erythrocyte mean corpuscular hemoglobin concentration measurement ( mass/volume) 33 g/dL 32-36 Automated erythrocyte distribution width ratio 13.4 % 10.0-14.5 Automated blood platelet count (count/volume) 156 10*3/uL 130-400 Automated blood platelet mean volume measurement 10.7 [foz_us] 7.4-10.4 Automated blood neutrophils/100 leukocytes 57 % 42-75 Automated blood lymphocytes/100 leukocytes 31 % 12-44 Blood monocytes/100 leukocytes 9 % 0-12 Automated blood eosinophils/100 leukocytes 3 % 0-10 Automated blood basophils/100 leukocytes 0 % 0-10 Blood neutrophils automated count (number/volume) 2.9 10*3 1.8-7.8 Blood lymphocytes automated count (number/volume) 1.6 10*3 1.0-4.0 Blood monocytes automated count (number/volume) 0.5 10*3 0.0-1.0 Automated eosinophil count 0.1 10*3/uL 0.0-0.3 Automated blood basophil count (count/volume) 0.0 10*3/uL 0.0-0.1 Comprehensive metabolic panel - 01/15/16 08:40 Serum or plasma sodium measurement (moles/volume) 142 mmol/L 135-145 Serum or plasma potassium measurement (moles/volume) 3.8 mmol/L 3.6-5.0 Serum or plasma chloride measurement (moles/volume) 108 mmol/L 98-107 Carbon dioxide 26 mmol/L 21-32 Serum or plasma anion gap determination (moles/volume) 8 mmol/L 5-14 Serum or plasma urea nitrogen measurement (mass/volume) 15 mg/dL 7-18 Serum or plasma creatinine measurement (mass/volume) 0.74 mg/dL 0.60-1.30 Serum or plasma urea nitrogen/creatinine mass ratio 20 NRG Serum or plasma creatinine measurement with calculation of estimated glomerular filtration rate > NRG Serum or plasma glucose measurement (mass/volume) 98 mg/dL 70-105 Serum or plasma calcium measurement (mass/volume) 9.2 mg/dL 8.5-10.1 Serum or plasma total bilirubin measurement (mass/volume) 1.0 mg/dL 0.1-1.0 Serum or plasma alkaline phosphatase measurement (enzymatic activity/volume) 111 U/L 40-136 Serum or plasma aspartate aminotransferase measurement (enzymatic activity/ volume) 19 U/L 5-34 Serum or plasma alanine aminotransferase measurement (enzymatic activity/volume ) 14 U/L 0-55 Serum or plasma protein measurement (mass/volume) 6.1 g/dL 6.4-8.2 Serum or plasma albumin measurement (mass/volume) 3.9 g/dL 3.2-4.5 Lipid 1996 panel - 01/15/16 08:40 Serum or plasma triglyceride measurement (mass/volume) 125 mg/dL <150 Serum or plasma cholesterol measurement (mass/volume) 205 mg/dL < 200 Serum or plasma cholesterol in HDL measurement (mass/volume) 58 mg/ dL 40-60 Cholesterol in LDL [mass/volume] in serum or plasma by direct assay 125 mg/dL 1-129 Serum or plasma cholesterol in VLDL measurement (mass/volume) 25 mg/ dL 5-40 Serum iron and total iron binding capacity panel - 01/15/16 08:40 Serum or plasma iron measurement (mass/volume) 103 % 35- 180 Total iron binding capacity and transferrin saturation measurement 34 % 15-50 Iron binding capacity [mass/volume] in serum or plasma 299 % 280-380 UIBC (unsaturated iron binding capacity) 196 % 55-450 Serum or plasma ferritin measurement (mass/volume) 193 % 15-150 Complete blood count (CBC) with automated white blood cell (WBC) differential - 02/11/16 17:51 Blood leukocytes automated count (number/volume) 6.1 10*3/uL 4.3-11.0 Blood erythrocytes automated count (number/volume) 4.24 10*6/uL 4.35-5.85 Venous blood hemoglobin measurement (mass/volume) 13.3 g/dL 11.5-16.0 Blood hematocrit (volume fraction) 41 % 35-52 Automated erythrocyte mean corpuscular volume 98 [foz_us] 80-99 Automated erythrocyte mean corpuscular hemoglobin (mass per erythrocyte) 31 pg 25-34 Automated erythrocyte mean corpuscular hemoglobin concentration measurement ( mass/volume) 32 g/dL 32-36 Automated erythrocyte distribution width ratio 13.8 % 10.0-14.5 Automated blood platelet count (count/volume) 152 10*3/uL 130-400 Automated blood platelet mean volume measurement 10.3 [foz_us] 7.4-10.4 Automated blood neutrophils/100 leukocytes 63 % 42-75 Automated blood lymphocytes/100 leukocytes 23 % 12-44 Blood monocytes/100 leukocytes 12 % 0-12 Automated blood eosinophils/100 leukocytes 2 % 0-10 Automated blood basophils/100 leukocytes 1 % 0-10 Blood neutrophils automated count (number/volume) 3.9 10*3 1.8-7.8 Blood lymphocytes automated count (number/volume) 1.4 10*3 1.0-4.0 Blood monocytes automated count (number/volume) 0.7 10*3 0.0-1.0 Automated eosinophil count 0.1 10*3/uL 0.0-0.3 Automated blood basophil count (count/volume) 0.0 10*3/uL 0.0-0.1 Complete blood count (CBC) with automated white blood cell (WBC) differential - 02/04/17 10:00 Blood leukocytes automated count (number/volume) 10.8 10*3/uL 4.3-11.0 Blood erythrocytes automated count (number/volume) 4.21 10*6/uL 4.35-5.85 Venous blood hemoglobin measurement (mass/volume) 13.6 g/dL 11.5-16.0 Blood hematocrit (volume fraction) 41 % 35-52 Automated erythrocyte mean corpuscular volume 96 [foz_us] 80-99 Automated erythrocyte mean corpuscular hemoglobin (mass per erythrocyte) 32 pg 25-34 Automated erythrocyte mean corpuscular hemoglobin concentration measurement ( mass/volume) 34 g/dL 32-36 Automated erythrocyte distribution width ratio 13.8 % 10.0-14.5 Automated blood platelet count (count/volume) 135 10*3/uL 130-400 Automated blood platelet mean volume measurement 11.5 [foz_us] 7.4-10.4 Automated blood neutrophils/100 leukocytes 88 % 42-75 Automated blood lymphocytes/100 leukocytes 4 % 12-44 Blood monocytes/100 leukocytes 7 % 0-12 Automated blood eosinophils/100 leukocytes 0 % 0-10 Automated blood basophils/100 leukocytes 0 % 0-10 Blood neutrophils automated count (number/volume) 9.5 10*3 1.8-7.8 Blood lymphocytes automated count (number/volume) 0.5 10*3 1.0-4.0 Blood monocytes automated count (number/volume) 0.8 10*3 0.0-1.0 Automated eosinophil count 0.0 10*3/uL 0.0-0.3 Automated blood basophil count (count/volume) 0.0 10*3/uL 0.0-0.1 Blood manual differential performed detection - 02/04/17 10:00 Blood monocytes/100 leukocytes 4 % NRG Manual blood segmented neutrophils/100 leukocytes 90 % NRG Manual blood lymphocytes/100 leukocytes 3 % NRG Blood lymphocytes variant/100 leukocytes 3 % NRG Blood erythrocyte morphology finding identification NORMAL NR Comprehensive metabolic panel - 02/04/17 10:00 Serum or plasma sodium measurement (moles/volume) 139 mmol/L 135-145 Serum or plasma potassium measurement (moles/volume) 3.6 mmol/L 3.6-5.0 Serum or plasma chloride measurement (moles/volume) 105 mmol/L 98-107 Carbon dioxide 25 mmol/L 21-32 Serum or plasma anion gap determination (moles/volume) 9 mmol/L 5-14 Serum or plasma urea nitrogen measurement (mass/volume) 17 mg/dL 7-18 Serum or plasma creatinine measurement (mass/volume) 0.71 mg/dL 0.60-1.30 Serum or plasma urea nitrogen/creatinine mass ratio 24 NRG Serum or plasma creatinine measurement with calculation of estimated glomerular filtration rate > NRG Serum or plasma glucose measurement (mass/volume) 155 mg/dL 70-105 Serum or plasma calcium measurement (mass/volume) 9.1 mg/dL 8.5-10.1 Serum or plasma total bilirubin measurement (mass/volume) 1.5 mg/dL 0.1-1.0 Serum or plasma alkaline phosphatase measurement (enzymatic activity/volume) 118 U/L 40-136 Serum or plasma aspartate aminotransferase measurement (enzymatic activity/ volume) 26 U/L 5-34 Serum or plasma alanine aminotransferase measurement (enzymatic activity/volume ) 19 U/L 0-55 Serum or plasma protein measurement (mass/volume) 6.7 g/dL 6.4-8.2 Serum or plasma albumin measurement (mass/volume) 3.9 g/dL 3.2-4.5 Serum or plasma creatine kinase measurement (enzymatic activity/volume) - 02/04 10:00 Serum or plasma creatine kinase measurement (enzymatic activity/volume) 238 U/L 29-168 Serum or plasma lithium measurement (moles/volume) - 02/04/17 10:00 BNP level 110.0 pg/mL <100.0 Complete urinalysis with reflex to culture - 02/04/17 11:30 Urine color determination YELLOW NRG Urine clarity determination CLEAR NRG Urine pH measurement by test strip 6 5-9 Specific gravity of urine by test strip 1.015 1.016- 1.022 Urine protein assay by test strip, semi-quantitative NEGATIVE NEGATIVE Urine glucose detection by automated test strip NEGATIVE NEGATIVE Erythrocytes detection in urine sediment by light microscopy 1+ NEGATIVE Urine ketones detection by automated test strip 2+ NEGATIVE Urine nitrite detection by test strip NEGATIVE NEGATIVE Urine total bilirubin detection by test strip NEGATIVE NEGATIVE Urine urobilinogen measurement by automated test strip (mass/volume) NORMAL NORMAL Urine leukocyte esterase detection by dipstick NEGATIVE NEGATIVE Automated urine sediment erythrocyte count by microscopy (number/high power field) RARE NRG Automated urine sediment leukocyte count by microscopy (number/high power field ) NONE NRG Bacteria detection in urine sediment by light microscopy NEGATIVE NRG Squamous epithelial cells detection in urine sediment by light microscopy RARE NRG Crystals detection in urine sediment by light microscopy NONE NRG Casts detection in urine sediment by light microscopy NONE NRG Mucus detection in urine sediment by light microscopy NEGATIVE NRG Complete urinalysis with reflex to culture NO NRG Complete blood count (CBC) with automated white blood cell (WBC) differential - 02/05/17 05:55 Blood leukocytes automated count (number/volume) 8.7 10*3/uL 4.3-11.0 Blood erythrocytes automated count (number/volume) 3.34 10*6/uL 4.35-5.85 Venous blood hemoglobin measurement (mass/volume) 10.9 g/dL 11.5-16.0 Blood hematocrit (volume fraction) 33 % 35-52 Automated erythrocyte mean corpuscular volume 100 [foz_us] 80-99 Automated erythrocyte mean corpuscular hemoglobin (mass per erythrocyte) 33 pg 25-34 Automated erythrocyte mean corpuscular hemoglobin concentration measurement ( mass/volume) 33 g/dL 32-36 Automated erythrocyte distribution width ratio 14.3 % 10.0-14.5 Automated blood platelet count (count/volume) 106 10*3/uL 130-400 Automated blood platelet mean volume measurement 10.6 [foz_us] 7.4-10.4 Automated blood neutrophils/100 leukocytes 77 % 42-75 Automated blood lymphocytes/100 leukocytes 13 % 12-44 Blood monocytes/100 leukocytes 9 % 0-12 Automated blood eosinophils/100 leukocytes 1 % 0-10 Automated blood basophils/100 leukocytes 0 % 0-10 Blood neutrophils automated count (number/volume) 6.7 10*3 1.8-7.8 Blood lymphocytes automated count (number/volume) 1.1 10*3 1.0-4.0 Blood monocytes automated count (number/volume) 0.8 10*3 0.0-1.0 Automated eosinophil count 0.1 10*3/uL 0.0-0.3 Automated blood basophil count (count/volume) 0.0 10*3/uL 0.0-0.1 Comprehensive metabolic panel - 02/05/17 05:55 Serum or plasma sodium measurement (moles/volume) 141 mmol/L 135-145 Serum or plasma potassium measurement (moles/volume) 4.4 mmol/L 3.6-5.0 Serum or plasma chloride measurement (moles/volume) 107 mmol/L 98-107 Carbon dioxide 26 mmol/L 21-32 Serum or plasma anion gap determination (moles/volume) 8 mmol/L 5-14 Serum or plasma urea nitrogen measurement (mass/volume) 11 mg/dL 7-18 Serum or plasma creatinine measurement (mass/volume) 0.70 mg/dL 0.60-1.30 Serum or plasma urea nitrogen/creatinine mass ratio 16 NRG Serum or plasma creatinine measurement with calculation of estimated glomerular filtration rate > NRG Serum or plasma glucose measurement (mass/volume) 132 mg/dL 70-105 Serum or plasma calcium measurement (mass/volume) 8.1 mg/dL 8.5-10.1 Serum or plasma total bilirubin measurement (mass/volume) 1.2 mg/dL 0.1-1.0 Serum or plasma alkaline phosphatase measurement (enzymatic activity/volume) 84 U/L 40-136 Serum or plasma aspartate aminotransferase measurement (enzymatic activity/ volume) 30 U/L 5-34 Serum or plasma alanine aminotransferase measurement (enzymatic activity/volume ) 15 U/L 0-55 Serum or plasma protein measurement (mass/volume) 5.1 g/dL 6.4-8.2 Serum or plasma albumin measurement (mass/volume) 2.9 g/dL 3.2-4.5 Encounters ACCT No. Visit Date/Time Discharge Status Pt. Type Provider Facility Loc./Unit Complaint [id number] 11/17/2016 10:22:00 11/17/2016 12:40:00 DIS Outpatient COLLINS CARDOSO MD [facility] ENDO CHANGE IN BOWEL [id number] 11/06/2016 05:42:00 11/06/2016 14:58:00 DIS Outpatient COLLINS CARDOSO MD [facility] PREOP CHANGE IN BOWEL [id number] 03/24/2016 09:37:00 03/24/2016 12:10:00 DIS Outpatient COLLINS CARDOSO MD [facility] ENDO REFLUX [id number] 03/20/2016 05:50:00 03/20/2016 11:48:00 DIS Outpatient COLLINS CARDOSO MD [facility] PREOP REFLUX [id number] 02/11/2016 17:39:00 02/11/2016 23:59:59 CLS Outpatient KLEVER GREENE DO [facility] LAB PNEUMONIA,COUGH [id number] 01/15/2016 08:25:00 01/15/2016 23:59:59 CLS Outpatient DUNG KEYS DO [facility] LAB Z00.00, E780.0, E78.1 [id number] 08/31/2015 07:27:00 08/31/2015 23:59:59 CLS Outpatient COLLINS CARDOSO MD [facility] RAD RUQ PAIN [id number] 07/18/2015 10:37:00 07/18/2015 23:59:59 CLS Outpatient DUNG KEYS DO [facility] LAB ENCOUNTER FOR GENERAL ADULT EXAM [id number] 07/17/2015 11:24:00 07/17/2015 23:59:59 CLS Outpatient KEYS DO, DUNG [facility] LAB ENCOUNTER FOR GENERAL ADULT MED EXAM, ANEMIA [id number] 01/16/2015 08:13:00 01/16/2015 23:59:59 CLS Outpatient KEYS DO, DUNG [facility] LAB ANEMIA [id number] 06/30/2014 08:11:00 06/30/2014 23:59:59 CLS Outpatient KEYS DO, DUNG [facility] LAB MED MONITORING,HLTH SCREEN,ANEMIA NOS,NEUROPATHY, [id number] 02/06/2014 10:21:00 02/06/2014 13:15:00 [facility] ; GERD [id number] 02/01/2014 06:19:00 02/01/2014 23:59:59 CLS Outpatient COLLINS CARDOSO MD [facility] PREOP CHANGE IN BOWEL HABITS; GERD [id number] 01/30/2014 10:37:00 01/30/2014 23:59:59 CLS Outpatient KEYS DO, DUNG [facility] RAD SCREENING [id number] 01/18/2014 11:45:00 01/18/2014 23:59:59 CLS Outpatient KEYS DO, DUNG [facility] LAB MEDICATION MONITORING LUMAR RADICULOPATHY RLS GERD [id number] 11/14/2013 14:00:00 11/14/2013 14:58:00 DIS Outpatient MADY HAYNES MD [facility] CARD DDD [id number] 02/21/2013 14:07:00 02/21/2013 23:59:59 CLS Outpatient KEYS DO, DUNG [facility] LAB CELIAC SPRUE MALABSORPTION,MUSCLE PAIN,ANEMIA [id number] 12/31/2012 13:02:00 12/31/2012 23:59:59 CLS Outpatient KEYS DO, DUNG [facility] RAD SCREENING [id number] 12/07/2012 08:04:00 12/07/2012 16:00:00 DIS Outpatient SCOT HUNTER FACC, LAYLA GONZALEZ CCDS [facility] CATH CP [id number] 11/19/2012 08:33:00 11/19/2012 23:59:59 CLS Outpatient LAYLA ELLISON MD, FACC, FACP CCDS [facility] CARD CHEST DISCOMFORT [id number] 10/13/2012 08:06:00 10/13/2012 23:59:59 CLS Outpatient DUNG KEYS DO [facility] LAB L LEG PAIN,SYNCOPE, DIZZINESS,NEUROPATHY,IDIOPATHIC [id number] 02/10/2017 13:00:00 PEN Preadmit DUNG KEYS DO [facility] CARD R06.00 ACUTE DYSPNEA [id number] 02/04/2017 11:00:00 ACT Inpatient ESTELA HUNTER, MOOKIE Adams [facility] 4TH RT HIP FX [id number] 08/06/2011 14:18:00 Document Registration [id number] 01/29/2011 10:55:00 Document Registration [id number] 05/27/2010 09:33:00 Document Registration
--- OUTSIDE RECORDS SUMMARY | 2017-02-05 09:40 | XMS REPORT | Continuity of Care Document ---
Author Author [facility] Organization [facility] Address Unknown Phone Unavailable Allergies Active Description Code Type Severity Reaction Onset Reported/Identified Relationship to Patient Clinical Status Yes NKANo Known Allergies NKA Miscellaneous Allergy Unknown N/A 10/06/2005 Yes No Known Drug Allergies [id number] Drug Allergy Unknown N/A 02/04/2017 Medications There is no data. Problems Date Dx Coded Attending Type Code Diagnosis Diagnosed By 12/07/2012 SCOT HUNTER FACC, LAYLA GONZALEZ CCDS Ot 424.1 AORTIC VALVE DISORDER 12/07/2012 SCOT HUNTER FACC, LAYLA GONZALEZ CCDS Ot 530.81 ESOPHAGEAL REFLUX 12/07/2012 LAYLA ELLISON MD, FACC, FACP CCDS Ot 786.09 RESPIRATORY ABNORM NEC 12/07/2012 SCOT HUNTER [facility] Ot 786.59 CHEST PAIN NEC 12/07/2012 SCOT HUNTER FACC, [facility] Ot V58.69 OTH MED,LT,CURRENT USE 11/14/2013 [...] Ot D64.9 ANEMIA, UNSPECIFIED 08/10/2015 KEYS DO, DUNG Ot Z00.00 ENCNTR FOR [...] FOR GENERAL ADULT MEDICAL EXAM W/ 08/31/2015 KEYSAMBROSE HASSAN DOI Ot D64.9 ANEMIA, UNSPECIFIED 08/31/2015 [...] 356.9 IDIO PERIPH NEURPTHY NOS 01/15/2016 DUNG KEYS DO Ot 729.5 PAIN IN LIMB 01/15/2016 [...] MYALGIA AND MYOSITIS NOS 01/15/2016 KEYS DO DUNG Ot 729.2 NEURALGIA/NEURITIS NOS 01/15/2016 LUDMILA DO [...] 780.4 DIZZINESS AND GIDDINESS 02/11/2016 SCOT HUNTER [facility], LAYLA [facility] CCDS Ot 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 Type Provider Facility Loc./Unit Complaint [id number] 11/17/2016 10:22:00 11/17/2016 12:40:00 DIS Outpatient COLLINS CARDOSO MD [facility] ENDO CHANGE IN BOWEL [id number] 11/06/2016 05:42:00 11/06/2016 14:58:00 DIS Outpatient COLLINS CARDOSO MD [facility] PREOP CHANGE IN BOWEL [id number] 03/24/2016 09:37:00 03/24/2016 12:10:00 DIS Outpatient COLLINS CARDOSO MD [facility] ENDO REFLUX [id number] 03/20/2016 05:50:00 03/20/2016 11:48:00 DIS Outpatient COLLINS CARDOSO MD [facility] PREOP REFLUX [id number] 02/11/2016 17:39:00 02/11/2016 23:59:59 CLS Outpatient KLEVER GREENE DO [facility] LAB PNEUMONIA,COUGH [id number] 01/15/2016 08:25:00 01/15/2016 23:59:59 CLS Outpatient DUNG KEYS DO [facility] LAB Z00.00, E780.0, E78.1 [id number] 08/31/2015 07:27:00 08/31/2015 23:59:59 CLS Outpatient COLLINS CARDOSO MD [facility] RAD RUQ PAIN [id number] 07/18/2015 10:37:00 07/18/2015 23:59:59 CLS Outpatient DUNG KEYS DO [facility] LAB ENCOUNTER FOR GENERAL ADULT EXAM [id number] 07/17/2015 11:24:00 07/17/2015 23:59:59 CLS Outpatient KEYS DO, DUNG [facility] LAB ENCOUNTER FOR GENERAL ADULT MED EXAM, ANEMIA [id number] 01/16/2015 08:13:00 01/16/2015 23:59:59 CLS Outpatient KEYS DO, DUNG [facility] LAB ANEMIA [id number] 06/30/2014 08:11:00 06/30/2014 23:59:59 CLS Outpatient KEYS DO, DUNG [facility] LAB MED MONITORING,HLTH SCREEN,ANEMIA NOS,NEUROPATHY, [id number] 02/06/2014 10:21:00 02/06/2014 13:15:00 DIS [facility] ; GERD [id number] 02/01/2014 06:19:00 02/01/2014 23:59:59 CLS Outpatient COLLINS CARDOSO MD [facility] PREOP CHANGE IN BOWEL HABITS; GERD [id number] 01/30/2014 10:37:00 01/30/2014 23:59:59 CLS Outpatient KEYS DO, DUNG [facility] RAD SCREENING [id number] 01/18/2014 11:45:00 01/18/2014 23:59:59 CLS Outpatient KEYS DO, DUNG [facility] LAB MEDICATION MONITORING LUMAR RADICULOPATHY RLS GERD [id number] 11/14/2013 14:00:00 11/14/2013 14:58:00 DIS Outpatient MADY HAYNES MD [facility] CARD DDD [id number] 02/21/2013 14:07:00 02/21/2013 23:59:59 CLS Outpatient KEYS DO, DUNG [facility] LAB CELIAC SPRUE MALABSORPTION,MUSCLE PAIN,ANEMIA [id number] 12/31/2012 13:02:00 12/31/2012 23:59:59 CLS Outpatient KEYS DO, DUNG [facility] RAD SCREENING [id number] 12/07/2012 08:04:00 12/07/2012 16:00:00 DIS Outpatient SCOT HUNTER FACC, LAYLA GONZALEZ CCDS [facility] CATH CP [id number] 11/19/2012 08:33:00 11/19/2012 23:59:59 CLS Outpatient LAYLA ELLISON MD, FACC, FACP CCDS [facility] CARD CHEST DISCOMFORT [id number] 10/13/2012 08:06:00 10/13/2012 23:59:59 CLS Outpatient DUNG KEYS DO [facility] LAB L LEG PAIN,SYNCOPE, DIZZINESS,NEUROPATHY,IDIOPATHIC [id number] 02/10/2017 13:00:00 PEN Preadmit DUNG KEYS DO [facility] CARD R06.00 ACUTE DYSPNEA [id number] 02/04/2017 11:00:00 ACT Inpatient ESTELA HUNTER, MOOKIE Adams [facility] 4TH RT HIP FX [id number] 08/06/2011 14:18:00 Document Registration [id number] 01/29/2011 10:55:00 Document Registration [id number] 05/27/2010 09:33:00 Document Registration
--- NOTE | 2017-02-05 10:01 | Progress Note-Cardiology ---
Cardiology SOAP Progress Note Subjective: Sitting up in a chair at the bedside. C/O incision pain. No c/o CP, palpitations, or dyspnea. Objective: I&O/Vital Signs Vital Sign - Last 12Hours 02/05/17 02/05/17 02/05/17 02/05/17 00:00 01:00 04:10 08:00 Temp 98.7 97.4 Pulse 74 78 79 Resp 19 18 B/P (MAP) 115/65 (82) 105/63 (77) Pulse Ox 98 97 98 O2 Delivery Nasal Cannula Nasal Cannula Nasal Cannula O2 Flow Rate 3.00 3.00 3.00 02/05/17 08:00 Temp 100.4 Pulse 78 Resp 18 B/P (MAP) 108/59 (75) Pulse Ox 98 O2 Delivery Nasal Cannula O2 Flow Rate 3.00 Intake and Output 02/05/17 00:00 Intake Total 2300 ml Output Total 1000 ml Balance 1300 ml Weight (Pounds): 133 Weight (Ounces): 1.0 Weight (Calculated Kilograms): 60.102846 Constitutional: AAO x 3, well-developed, well-nourished Respiratory: No accessory muscle use, No respiratory distress, lungs clear to auscultation Cardiovascular: regular rate-rhythm, S1 and S2, systolic murmur (2/6 MSM at card base) Gastrointestional: No tender, soft, No guarding, No rebound, audible bowel sounds Extremities: No clubbing, No cyanosis, No significant edema Neurologic/Psychiatric: oriented x 3, grossly intact, power is 5/5 both on sides Skin: No rash on exposed areas, No ulcerations on exposed areas Results/Procedures: Labs Laboratory Tests 02/04/17 11:30: Urine Color YELLOW, Urine Clarity CLEAR, Urine pH 6, Urine Specific [place] 1.015L, Urine Protein NEGATIVE, Urine Glucose (UA) NEGATIVE, Urine Ketones 2+H, Urine Nitrite NEGATIVE, Urine Bilirubin NEGATIVE, Urine Urobilinogen NORMAL, Urine Leukocyte Esterase NEGATIVE, Urine RBC (Auto) 1+H, Urine RBC RARE, Urine WBC NONE, Urine Squamous Epithelial Cells RARE, Urine Crystals NONE, Urine Bacteria NEGATIVE, Urine Casts NONE, Urine Mucus NEGATIVE, Urine Culture Indicated NO 02/05/17 05:55: White Blood Count 8.7, Red Blood Count 3.34L, Hemoglobin 10.9L, Hematocrit 33L, Mean Corpuscular Volume 100H, Mean Corpuscular Hemoglobin 33, Mean Corpuscular Hemoglobin Concent 33, Red Cell Distribution Width 14.3, Platelet Count 106L, Mean Platelet Volume 10.6H, Neutrophils (%) (Auto) 77H, Lymphocytes (%) (Auto) 13, Monocytes (%) (Auto) 9, Eosinophils (%) (Auto) 1, Basophils (%) (Auto) 0, Neutrophils # (Auto) 6.7, Lymphocytes # (Auto) 1.1, Monocytes # (Auto) 0.8, Eosinophils # (Auto) 0.1, Basophils # (Auto) 0.0, Sodium Level 141, Potassium Level 4.4, Chloride Level 107, Carbon Dioxide Level 26, Anion Gap 8, Blood Urea Nitrogen 11, Creatinine 0.70, Estimat Glomerular Filtration Rate > 60, BUN/ Creatinine Ratio 16, Glucose Level 132H, Calcium Level 8.1L, Total Bilirubin 1.2H, Aspartate Amino Transf (AST/SGOT) 30, Alanine Aminotransferase (ALT/SGPT) 15, Alkaline Phosphatase 84, Total Protein 5.1L, Albumin 2.9L A/P: Assessment: R hip fracture after non-syncopal fall; s/p surgery on 02/04/17 Severe aortic stenosis. Echo of shows aortic valve area 0.8 sq cm, LVEF 55-60%, PASP 35 mmHg and grade I diastolic dysfunction of the LV No significant CAD on card cath of 2012 H/o GERD Mild anemia and thrombocytopenia post op Plan: * Continue current regimen * Monitor lab closely * We recommend DVT prophylaxis - Xarelto has been started by surgical services * Mild anemia and thrombocytopenia - monitor lab Physician Assessment Physician Assessment She does not report cp or palp or syncope or shortness of breath Lungs: clear Cor: reg Ext: no c/c/e A&R * As documented in our note above that I updated (italics) and as noted below * Continue to monitor labs * Continue DVT prophylaxis * I spoke with her and answered CV-related questions C[facility]Y [facility] Feb 05, 2017 10:01 LAYLA ELLISON MD [facility] Feb 05, 2017 11:27
--- NOTE | 2017-02-05 10:07 | Physical Therapy Evaluation ---
PT Evaluation-General Medical Diagnosis Admission Date Feb 04, 2017 at 11:00 Medical Diagnosis: right hip fracture Onset Date: Feb 04, 2017 Therapy Diagnosis Therapy Diagnosis: generalized weakness/debility Height/Weight Height (Feet): 5 Height (Inches): 3.00 Weight (Pounds): 133 Weight (Ounces): 1.0 Precautions Precautions/Isolations: Fall Prevention, Standard Precautions Weight Bear Status Right Lower Extremity: Right Full Weight Bearing Left Lower Extremity: Left Full Weight Bearing Referral Physician: Felipe Reason for Referral: Evaluation/Treatment Medical History Pertinent Medical History: GERD Additional Medical History RLS; IBS Current History fall x 2; stepped off driveway and fell was able to ambulate to house, slipped on kitchen floor Reviewed History: Yes Social History Home: Single Level Current Living Status: Alone Entry Into Home: Stairs With Railing PT Steps Into Home: 2 Prior/Core FIM Prior Level of Function Functional [place] Measure 0=Not Assessed/NA 4=Minimal Assistance 1=Total Assistance 5=Supervision or Setup 2=Maximal Assistance 6=Modified [place] 3=Moderate Assistance 7=Complete [place] Bed Mobility: 7 Transfers (B,C,W/C) (FIM): 7 Gait: 7 Locomotion: 7 PT Evaluation-Current Subjective Patient c/o 10/10 right hip pain. Agrees to PT. Pain Numeric Pain Scale: 10-Worst Possible Pain Location: Right Location Body Site: Hip Pain Description: Acute Objective Patient Orientation: Normal For Age Problem Solving: Good Attachments: Oxygen, Barron Catheter, IV ROM/Strength ROM Lower Extremities right LE limited due to pain left LE WFL Strength Lower Extremities right knee flexion/extension 3/5; hip flexion NT; DF/PF 3/5 left knee flexion/extension 3+/5; hip flexion NT; DF/PF 3+/5 Integumentary/Posture Integumentary refer to nursing notes Bowel Incontinence: No Bladder Incontinence: Barron Cath Posture WFL Neuromuscular (Tone, Coordination, Reflexes) grossly intact Sensory Vision: Functional Hearing: Impaired Sensation Right Lower Extremit: Intact Sensation Left Lower Extremity: Intact Transfers Functional [place] Measure 0=Not Assessed/NA 4=Minimal Assistance 1=Total Assistance 5=Supervision or Setup 2=Maximal Assistance 6=Modified [place] 3=Moderate Assistance 7=Complete [place] Transfers (B, C, W/C) (FIM): 2 Scootin Rollin Supine to/from Sit: 2 Sit to/from Stand: 2 Gait Mode of Locomotion: Walk Anticipated Mode of Locomotion: Walk Gait (FIM): 1 Distance (FIM): 1=up to 49 ft Distance: 3 steps Gait Level of Assist: 3 Gait Persons Needed: 1 Gait Assistive Device: FWW Comments/Gait Description difficulty with weight shifting to right to advance left LE due to pain Balance Sitting Static: Normal Sitting Dynamic: Normal Standing Static: Fair Standing Dynamic: Fair Assessment/Needs 81 y.o. female, will benefit from skilled PT to address functional strength and mobility to improve current LOF. Patient is very emotional and fearful of not being able to return to home. From a PT standpoint, patient would benefit from ARU, however, may require extended LTCF upon dismissal. Rehab Potential: Good PT Residential Goals Residential Goals PT Residential Goals Time Frame: Feb 27, 2017 Transfers (B,C,W/C) (FIM): 6 Gait (FIM): 6 Gait distance (FIM): 3=150 ft Distance: 150' Gait Level of Assist: 6 Gait Assistive Device: FWW Stairs (FIM): 5 # of Steps: 4 Stairs Level Of Assist: 5 PT Plan Problem List Problem List: Activity Tolerance, Functional Strength, Safety, Balance, Gait, Transfer, Bed Mobility Treatment/Plan Treatment Plan: Continue Plan of Care Treatment Plan: Bed Mobility, Education, Functional Activity Priya, Functional Strength, Gait, Safety, Therapeutic Exercise, Transfers Treatment Duration: Feb 27, 2017 Frequency: 11 times per week Estimated Hrs Per Day: 1 hour per day Patient and/or Family Agrees t: Yes Safety Risks/Education Patient Education: Gait Training Teaching Recipient: Patient Teaching Methods: Demonstration, Discussion Response to Teaching: Verbalize Understanding, Return Demonstration Discharge Recommendations Therapy D/C Recommendations: Acute Rehab, [facility] (TCU/NH) Equpiment Recommendations-D/C: Front Wheeled Walker Time/GCodes Time In: 820 Time Out: 853 Total Billed Treatment Time: 33 [facility] Necessary: EVARISTO Elizabeth PT Feb 05, 2017 10:07
[2017-02-05] MEDS: HYDROcodone/APAP 10 MG/325 MG (LORTAB) TAB PO PRN (10:30)
[2017-02-05] MEDS ORDERED: IRON SUCROSE INJECTION 200 MG in NS (IVPB) 100 ML IV SCH (11:15)
--- NOTE | 2017-02-05 11:16 | Progress Note-Hospitalist ---
Progress Note HPI/CC on Admission CC: Right hip fracture HPI: This is a 81yo[facility] clinic patient of mine for the past 5 years who presents to the ER after falling off a curb and suffering a right femur fracture. She fell once on the pavement then fell again at home right thereafter. She has a h/ o RLS and IBS and recently had a colonoscopy which was normal per Dr Choudhury. I just referred her to Dr Brizuela to evaluate the dyspnea on exertion and ECHO revealed moderate aortic stenosis in 2012. I spoke to him and he will see her and obtain stat ECHO. Progress Notes/Assess & Plan Date Seen 02/05/17 Time Seen by Provider: 10:15 Admission Dx/Process Assessment: Acute right femur fracture sustained in fall at home History of moderate aortic stenosis in 2012 was in process of referral to Dr. Brizuela so stat echo ordered and Dr. Brizuela will see in consultation Restless leg syndrome Irritable bowel syndrome constipation predominant Diagonsis/Assessment & Plan Patient doing much better but pain is an issue and just overall feels listless Inpatient rehabilitation will take her tomorrow IV fluid at 75 mL an hour and will be continued until she can eat and drink better Overall denies any other significant issues very depressed overall since the of her and now hip fracture threatening her independence DVT prophylaxis maintained No fever, vital signs stable, pleasant, pale, chronically ill, up in chair Regular rate and rhythm with murmur Clear to auscultation bilaterally No edema Laboratory Tests 02/05/17 05:55 Assessment: Acute right femur fracture sustained in fall at home s/p repair POD # 1 History of moderate aortic stenosis in 2012 was in process of referral to Dr. Brizuela so stat echo ordered and Dr. Brizuela will see in consultation and noted severe on ECHO Restless leg syndrome Irritable bowel syndrome constipation predominant Postoperative anemia checking iron Postop thrombocytopenia Plan: Inpatient rehabilitation Thursday Dr. Brizuela consultation for aortic stenosis and will monitor for volume status postoperatively Check iron level Initiate Venofer empirically Bowel meds DUNG KEYS DO Feb 05, 2017 11:16
[2017-02-05 12:00] VITALS: BP 90/54
--- NOTE | 2017-02-05 12:05 | Occupational Therapy Eval ---
OT Evaluation-General/PLF Medical Diagnosis Admission Date Feb 04, 2017 at 11:00 Medical Diagnosis: right hip fracture Onset Date: Feb 04, 2017 Therapy Diagnosis Therapy Diagnosis: decr self care, decr funct mobility, weakness, decr act tolerance Height/Weight Height (Feet): 5 Height (Inches): 3.00 Weight (Pounds): 133 Weight (Ounces): 1.0 Precautions Precautions/Isolations: Fall Prevention, Standard Precautions, Pressure Ulcer Safety Interventions: None Comments Hip precautions - assumed Weight Bear Status Weight Bearing Restriction: Full Weight Bearing Location Restriction: LE Bilateral Referral Physician: Felipe Referral Reason: Evaluation/Treatment Medical History Pertinent Medical History: GERD Additional Medical History R cochlean implant, bilat hearing aids, [place]. Chronic back pain. IBS. Aortic stenosis. Restless legs Current History Fell twice at home, once outside and once inside. Went to bed and was unable to get up and put weight on leg. Reviewed History: Yes Social History Home: Single Level Current Living Status: Alone Entry Into Home: Stairs With Railing Steps Into Home: 2 ADL-Prior Level of Function ADL PLOF Comments Pt reported that she has been able to manage all of her basic self care needs. 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 Pt reported she recently had pain meds and her pain has decreased to 5/10 in R hip/ Appearance Alert, cooperative Mental Status/Objective Patient Orientation: Person, Place, Time, Situation Attachments: Barron Catheter, IV, Oxygen, Telemetry Current Glasses/Contacts: Yes Hearing Aids: Yes Dentures/Partials: No Hand Dominance: Right Upper Extremity ROM Grossly WFL bilat Upper Extremity Sensation No problems, per pt report Upper Extremity Strength Grossly 4/5 bilat ADL-Treatment ADL-Current Pt was eating lunch and said that she had no problems opening packages. She has not been up to use the bathroom and has Barron. PT ciaraal reported max assist with transfers and took three steps. Functional Cross Measure 0=Not Assessed/NA 4=Minimal Assistance 1=Total Assistance 5=Supervision or Setup 2=Maximal Assistance 6=Modified [place] 3=Moderate Assistance 7=Complete IndependenceIRFPAI Quality Coding Scale 6 Independent with activity with or without an assistive device 5 Patient requires set up or clean up by helper. Patient completes activity by themselves 4 Supervision or touching assist (CGA). [place] provide cues , steadying assist 3 The helper provides less than half the effort to complete the activity 2 The helper provides more than half the effort to complete the activity 1 Dependent. The helper does all the effort to complete an activity 7 Patient refused to complete or attempt activity 9 The patient did not perform the activity before the current illness or injury 88 Not attempted due to Medical conditions or safety concerns Pt asked about best clothes to wear for therapy - questions answered. Other Treatments Pt education total hip precautions and how they affect basic ADLs. Education OT Patient Education: Purpose of tx/functional activities, Rehab process Teaching Recipient: Patient Teaching Methods: Discussion Response to Teaching: Verbalize Understanding OT Prison Goals Prison Goals Time Frame: Feb 27, 2017 Eating (FIM): 6 Grooming(FIM): 6 Bathing(FIM): 6 Upper Body Dressing(FIM): 6 Lower Body Dressing(FIM): 6 Toileting(FIM): 6 Toilet/Commode Transfer(FIM): 6 Shower Transfer(FIM): 6 Additional Goals: 2-Verbalize Understanding, 3-ImproveStrength/Priya 1=Demonstrate adherence to instructed precautions during ADL tasks. 2=Patient will verbalize/demonstrate understanding of assistive devices/ modifications for ADL. 3=Patient will improve strength/tolerance for activity to enable patient to perform ADL's. OT Education/Plan Problem List/Assessment Assessment: Decreased Activ Tolerance, Decreased UE Strength, Dependent Transfers, Impaired Funct Balance, Impaired Self-Care Skills Pt would benefit from skilled OT to increase her independence in basic self care to allow her to safely return to her home and to decrease caregiver burden. Discharge Recommendations Plan/Recommendations: Continue POC Barriers to Progress decreased functional mobility affecting ADLs, since pt lives alone Treatment Plan/Plan of Care Treatment,Training & Education: Yes Patient would benefit from OT for education, treatment and training to promote independence in ADL's, mobility, safety and/or upper extremity function for ADL' s. Plan of Care: ADL Retraining, Functional Mobility, UE Funct Exercise/Act, UE Neuromus Re-Ed/Coord Treatment Duration: Feb 27, 2017 Frequency: 5 times per week Estimated Hrs Per Day: .5 hour per day Agreement: Yes Rehab Potential: Good Time/GCodes Start Time: 11:10 Stop Time: 11:24 Total Time Billed (hr/min): 14 Billed Treatment Time visit, 14 minutes evaluation moderate intensity MARIZA VALDES OT Feb 05, 2017 12:05
--- NOTE | 2017-02-05 13:42 | Anesthesia-General Post-Op ---
General Patient Condition Mental Status/LOC: Same as Preop Cardiovascular: Satisfactory Nausea/Vomiting: Absent Respiratory: Satisfactory Pain: Controlled Complications: Absent Post Op Complications Complications None Follow Up Care/Instructions Patient Instructions None needed. Anesthesia/Patient Condition Patient Condition Patient is doing well, no complaints, stable vital signs, no apparent adverse anesthesia problems. No complications reported per nursing. ISELA BAKER CRNA Feb 05, 2017 13:41
--- NOTE | 2017-02-05 14:24 | Progress Note (SOAP) ---
Subjective Date Seen by Provider: Feb 05, 2017 Time Seen by Provider: 14:19 Subjective/Events-last exam Postop day 1 bipolar right hip. Doing well at this time. Gait was 49 feet with PT this AM. Daughter from [place] just made it here and we were able to visit some. Her pain is well controlled. Review of Systems General: No Chills, No Night Sweats, No Fatigue, No Malaise, No Appetite, No Other Cardiovascular: No: Chest Pain, Palpitations, Orthopnea, Paroxysmal Noc. Dyspnea, Edema, Lt Headedness, Other Neurological: No: Weakness, Numbness, Incoordination, Change in speech, Confusion, Seizures, Other Objective Exam Vital Signs Date Time Temp Pulse Resp B/P (MAP) Pulse Ox O2 Delivery O2 Flow Rate FiO2 02/05/17 12:00 99.1 96 18 90/54 (66) 95 Nasal Cannula 3.00 02/05/17 08:00 100.4 78 18 108/59 (75) 98 Nasal Cannula 3.00 02/05/17 08:00 98 Nasal Cannula 3.00 02/05/17 04:10 97.4 79 18 105/63 (77) 97 Nasal Cannula 3.00 02/05/17 01:00 78 02/05/17 00:00 98.7 74 19 115/65 (82) 98 Nasal Cannula 3.00 02/04/17 21:06 99.6 78 17 131/59 (83) 98 Room Air 02/04/17 20:30 98 Nasal Cannula 3.00 02/04/17 16:30 98.2 83 18 152/65 (94) 92 Room Air 02/04/17 15:13 93 Room Air 02/04/17 15:13 79 93 02/04/17 14:43 Room Air I & O 02/05/17 07:00 Intake Total 2700 ml Output Total 1300 ml Balance 1400 ml Capillary Refill : Less Than 3 SecondsLess Than 3 Seconds General Appearance: No Apparent Distress, WD/WN Cardiovascular: No Edema, Normal Peripheral Pulses Extremity: Normal Capillary Refill, No Calf Tenderness, Other (Right hip incision healing well.) Neurologic/Psychiatric: Oriented x3, No Motor/Sensory Deficits, Normal Mood/ Affect Skin: Normal Color, Warm/Dry Results Lab Laboratory Tests 02/05/17 05:55: White Blood Count 8.7, Red Blood Count 3.34L, Hemoglobin 10.9L, Hematocrit 33L, Mean Corpuscular Volume 100H, Mean Corpuscular Hemoglobin 33, Mean Corpuscular Hemoglobin Concent 33, Red Cell Distribution Width 14.3, Platelet Count 106L, Mean Platelet Volume 10.6H, Neutrophils (%) (Auto) 77H, Lymphocytes (%) (Auto) 13, Monocytes (%) (Auto) 9, Eosinophils (%) (Auto) 1, Basophils (%) (Auto) 0, Neutrophils # (Auto) 6.7, Lymphocytes # (Auto) 1.1, Monocytes # (Auto) 0.8, Eosinophils # (Auto) 0.1, Basophils # (Auto) 0.0, Sodium Level 141, Potassium Level 4.4, Chloride Level 107, Carbon Dioxide Level 26, Anion Gap 8, Blood Urea Nitrogen 11, Creatinine 0.70, Estimat Glomerular Filtration Rate > 60, BUN/ Creatinine Ratio 16, Glucose Level 132H, Calcium Level 8.1L, Total Bilirubin 1.2H, Aspartate Amino Transf (AST/SGOT) 30, Alanine Aminotransferase (ALT/SGPT) 15, Alkaline Phosphatase 84, Total Protein 5.1L, Albumin 2.9L Assessment/Plan Assessment/Plan Assess & Plan/Chief Complaint Right subcapital femoral neck fracture Postop hemiarthroplasty right hip-- continue to mobilize with PT. Rehab consulted. Continue thromboembolism prophylaxis. Final Diagnosis Right subcapital femoral neck fracture Clinical Quality Measures DVT/VTE Risk/Contraindication: Risk Factor Score Per Nursin RFS Level Per Nursing on Admit: 4+=Very High MOOKIE PALMER MD Feb 05, 2017 14:24
--- NOTE | 2017-02-05 14:49 | Discharge Inst-Surgical ---
Discharge Inst-Surgical Consults/Follow Up Goal/Follow Up Appt.: Follow up with Dr. Wang 2 weeks after discharge Patient Instructions: Weight bearing as tolerated Use walker for 6 weeks Keep incision dry until siobhan are taken out Do not bend more than 90 degrees at waist when getting out of a chair. Avoid crossing the legs. Activity Activity as Tolerated: No see instructions Walking Assistive Device: Walker Driving Instructions: No Driving/Refer to Dr. Rosenthal Spirometry: Every 2 Hours While Awake Avoid ALL Tobacco Products: Smoking of Any Kind Diet Discharge Diet: No Restrictions Symptoms to Report to Physicia: Extremity Discoloration, Numbness/Tingling, Swelling Increased, Bleeding Excessive, Pain Increased, Fever Over 101 Degrees F If Any Problems/Questions/Issu: Contact Your Physician Skin/Wound Care Infection Signs and Symptoms: Increased Redness, Foul Odor of Wound, Increased Drainage, Skin Itchy or Has a Rash, Increased Swelling, Temperature Above 101 F Bathing Instructions: Sponge Operative Area Clean and Dry: Keep Incision Clean/Dry Stitches/[place]/Dermabond Dis: Care of Siobhan Ice Pack: Ice On and Off Site MOOKIE WANG MD Feb 05, 2017 14:49
--- NOTE | 2017-02-05 14:59 | Physical Therapy Daily Note ---
PT Daily Note-Current Subjective Patient is in bed and agrees to PT. Family present. Pain Numeric Pain Scale: 8 Location: Right Location Body Site: Hip Pain Description: Acute Mental Status Patient Orientation: Normal For Age Attachments: Oxygen, Barron Catheter, IV Transfers Functional [place] Measure 0=Not Assessed/NA 4=Minimal Assistance 1=Total Assistance 5=Supervision or Setup 2=Maximal Assistance 6=Modified [place] 3=Moderate Assistance 7=Complete IndependenceIRFPAI Quality Coding Scale 6 Independent with activity with or without an assistive device 5 Patient requires set up or clean up by helper. Patient completes activity by themselves 4 Supervision or touching assist (CGA). [place] provide cues , steadying assist 3 The helper provides less than half the effort to complete the activity 2 The helper provides more than half the effort to complete the activity 1 Dependent. The helper does all the effort to complete an activity 7 Patient refused to complete or attempt activity 9 The patient did not perform the activity before the current illness or injury 88 Not attempted due to Medical conditions or safety concerns Transfers (B, C, W/C) (FIM): 4 Scootin Supine to/from Sit: 4 Sit to/from Stand: 4 Bed to/from Chair: 4 Weight Bearing Right Lower Extremity: Right Full Weight Bearing Left Lower Extremity: Left Full Weight Bearing Gait Training Gait (FIM): 1 Distance (FIM): 1=up to 49 ft Distance: 5' Gait Level of Assist: 4 Gait Persons Needed: 1 Gait Assistive Device: FWW slow, antalgic; difficulty with weight shifting to right to advance left LE Exercises Supine Ex: Ankle pumps, Quad Set, Heel Slides Supine Reps: 8 Seated Therapy Exercises: Long arc quads Seated Reps: 10 Assessment Patient progressing slowly with treatment plan and will transfer to SDU in a.m. PT Skilled Nursing Goals Digital Imager Goals PT Digital Imager Goals Time Frame: Feb 27, 2017 Transfers (B,C,W/C) (FIM): 6 Gait (FIM): 6 Gait distance (FIM): 3=150 ft Distance: 150' Gait Level of Assist: 6 Gait Assistive Device: FWW Stairs (FIM): 5 # of Steps: 4 Stairs Level Of Assist: 5 PT Plan Treatment/Plan Treatment Plan: Continue Plan of Care Treatment Plan: Bed Mobility, Education, Functional Activity Priya, Functional Strength, Gait, Safety, Therapeutic Exercise, Transfers Treatment Duration: Feb 27, 2017 Frequency: 11 times per week Estimated Hrs Per Day: 1 hour per day Patient and/or Family Agrees t: Yes Discharge Recommendations Therapy D/C Recommendations: Acute Rehab, Fdc (TCU/NH) Time/GCodes Time In: 1405 Time Out: 1428 Total Billed Treatment Time: 23 Total Billed Treatment 1 visit EX 15 min FA 8 min EVARISTO WHITE PT Feb 05, 2017 14:59
[2017-02-05 16:00] VITALS: BP 100/60
[2017-02-05] MEDS: NS IV 1000 ML 1,000 ML IV SCH (17:40)
[2017-02-05] MEDS ORDERED: RIVAROXABAN 10 MG TABLET (XARELTO) PO SCH (18:00)
[2017-02-05 20:00] VITALS: BP 119/56
[2017-02-05] MEDS: OSELTAMIVIR 75 MG (TAMIFLU) BOX OF 10 PO SCH (20:39)
[2017-02-05] MEDS ORDERED: POLYETHYLENE GLYCOL 17 GM (MIRALAX) PACK PO SCH (21:00)
[2017-02-06] VITALS: BP 103/51
[2017-02-06] MEDS: HYDROcodone/APAP 10 MG/325 MG (LORTAB) TAB PO PRN (02:30)
[2017-02-06 04:15] VITALS: BP 98/56
[2017-02-06] MEDS: NS IV 1000 ML 1,000 ML IV SCH (06:43)
--- NOTE | 2017-02-06 07:09 | Progress Note (SOAP) ---
Subjective Date Seen by Provider: Feb 06, 2017 Time Seen by Provider: 07:07 Subjective/Events-last exam She currently has no complaints and states she is doing well. She states she is ready for rehab unit. Pain controlled. Ambulating fair with therapy. Objective Exam Vital Signs Date Time Temp Pulse Resp B/P (MAP) Pulse Ox O2 Delivery O2 Flow Rate FiO2 02/06/17 04:15 97.0 105 17 98/56 (70) 94 Nasal Cannula 2.00 02/06/17 01:00 92 02/06/17 00:00 98.7 97 20 103/51 (68) 94 Nasal Cannula 2.00 02/05/17 20:40 98 Nasal Cannula 2.00 02/05/17 20:00 98.9 88 18 119/56 (77) 94 Nasal Cannula 3.00 02/05/17 19:48 94 Nasal Cannula 3.00 02/05/17 19:00 98 02/05/17 16:00 98.9 104 20 100/60 (73) 94 Nasal Cannula 3.00 02/05/17 12:00 99.1 96 18 90/54 (66) 95 Nasal Cannula 3.00 02/05/17 08:00 100.4 78 18 108/59 (75) 98 Nasal Cannula 3.00 02/05/17 08:00 98 Nasal Cannula 3.00 I & O 02/06/17 07:00 Intake Total 3960 ml Output Total 1150 ml Balance 2810 ml Capillary Refill : Less Than 3 SecondsLess Than 3 Seconds General Appearance: No Apparent Distress Extremity: Normal Capillary Refill, No Calf Tenderness, No Pedal Edema Neurologic/Psychiatric: Alert, Oriented x3, No Motor/Sensory Deficits Skin: Normal Color, Warm/Dry (dressing right hip CDI) Results Lab Microbiology 02/04/17 MRSA Screen - Final, Complete MRSA not isolated Assessment/Plan Assessment/Plan Assess & Plan/Chief Complaint A: displaced right hip fracture s/p right hip bipolar prosthesis P: Cleared for discharge to rehab from ortho standpoint. Will wait for medicine service to evaluate her prior to discharge to rehab hopefully today Clinical Quality Measures DVT/VTE Risk/Contraindication: Risk Factor Score Per Nursin RFS Level Per Nursing on Admit: 4+=Very High LEONEL CORCORAN APRN Feb 06, 2017 7:09 am
[2017-02-06 07:36] LABS: MEAN PLATELET VOLUME 11.5 FL (7.4-10.4); RED BLOOD COUNT 2.72 10^6/uL (4.35-5.85); WHITE BLOOD COUNT 9.4 10^3/uL (4.3-11.0)
[2017-02-06 07:55] LABS: ANION GAP 6 MMOL/L (5-14); BLOOD UREA NITROGEN 10 MG/DL (7-18); BUN/CREATININE RATIO 15; CALCIUM 7.8 MG/DL (8.5-10.1); CARBON DIOXIDE 25 MMOL/L (21-32); CHLORIDE 107 MMOL/L (98-107); CREATININE SERUM 0.65 MG/DL (0.60-1.30); GFR ESTIMATED > 60; GLUCOSE 144 MG/DL (70-105); MAGNESIUM 1.6 MG/DL (1.8-2.4); POTASSIUM 3.7 MMOL/L (3.6-5.0); SODIUM 138 MMOL/L (135-145)
[2017-02-06 08:00] VITALS: BP 93/54
[2017-02-06] MEDS: RT-ALBUTEROL SULF 2.5 MG/3 ML PRE-MIX VIAL INH SCH (08:03)
[2017-02-06] MEDS: DOCUSATE SODIUM 100 MG (COLACE) CAP PO SCH (08:20)
[2017-02-06] MEDS: OSELTAMIVIR 75 MG (TAMIFLU) BOX OF 10 PO SCH (08:21)
--- NOTE | 2017-02-06 09:26 | Discharge Summary-Hospitalist ---
Diagnosis/Chief Complaint Date of Admission Feb 04, 2017 at 11:00 Date of Discharge Discharge Date: Feb 06, 2017 Admission Diagnosis Assessment: Acute right femur fracture sustained in fall at home History of moderate aortic stenosis in 2012 was in process of referral to Dr. Brizuela so stat echo ordered and Dr. Brizuela will see in consultation Restless leg syndrome Irritable bowel syndrome constipation predominant Discharge Diagnosis Assessment: Acute right femur fracture sustained in fall at home History of moderate aortic stenosis in 2012 was in process of referral to Dr. Brizuela so stat echo ordered and Dr. Brizuela has seen in consultation Restless leg syndrome Irritable bowel syndrome constipation predominant Post operative anemia due to acute blood loss Discharge Summary Discharge Physical Examination Allergies: Coded Allergies: No Known Drug Allergies (Unverified , 02/04/17) Vitals & I&Os Vital Signs Date Time Temp Pulse Resp B/P (MAP) Pulse Ox O2 Delivery O2 Flow Rate FiO2 02/06/17 08:40 Nasal Cannula 2.00 02/06/17 08:03 95 02/06/17 08:00 98.7 88 18 93/54 (67) Hospital Course Patient doing much better and ate bfast Inpatient rehabilitation this am and doing well with that Bowels not moving yet and has IBS Overall denies any other significant issues very depressed overall since the of her and now hip fracture threatening her independence DVT prophylaxis maintained No fever, vital signs stable, pleasant, pale, chronically ill, up in chair Regular rate and rhythm with murmur Clear to auscultation bilaterally No edema Laboratory Tests 02/06/17 06:57 Assessment: Acute right femur fracture sustained in fall at home s/p repair POD # 2 History of moderate aortic stenosis in 2012 was in process of referral to Dr. Brizuela so stat echo ordered and Dr. Brizuela will see in consultation and noted severe on ECHO Restless leg syndrome Irritable bowel syndrome constipation predominant Postoperative anemia checking iron Postop thrombocytopenia Plan: Inpatient rehabilitation today Dr. Brizuela consultation for aortic stenosis and will monitor for volume status postoperatively Initiate Venofer Bowel meds Labs (last 24 hrs) Laboratory Tests 02/06/17 06:57: White Blood Count 9.4, Red Blood Count 2.72L, Hemoglobin 8.9L, Hematocrit 27L, Mean Corpuscular Volume 100H, Mean Corpuscular Hemoglobin 33, Mean Corpuscular Hemoglobin Concent 33, Red Cell Distribution Width 14.0, Platelet Count 89L, Mean Platelet Volume 11.5H, Sodium Level 138, Potassium Level 3.7, Chloride Level 107, Carbon Dioxide Level 25, Anion Gap 6, Blood Urea Nitrogen 10, Creatinine 0.65, Estimat Glomerular Filtration Rate > 60, BUN/Creatinine Ratio 15, Glucose Level 144H, Calcium Level 7.8L, Magnesium Level 1.6L Microbiology 02/04/17 MRSA Screen - Final, Complete MRSA not isolated Pending Labs Laboratory Tests 02/06/17 06:57: White Blood Count 9.4, Red Blood Count 2.72, Hemoglobin 8.9, Hematocrit 27, Mean Corpuscular Volume 100, Mean Corpuscular Hemoglobin 33, Mean Corpuscular Hemoglobin Concent 33, Red Cell Distribution Width 14.0, Platelet Count 89, Mean Platelet Volume 11.5, Sodium Level 138, Potassium Level 3.7, Chloride Level 107, Carbon Dioxide Level 25, Anion Gap 6, Blood Urea Nitrogen 10, Creatinine 0.65, Estimat Glomerular Filtration Rate > 60, BUN/Creatinine Ratio 15, Glucose Level 144, Calcium Level 7.8, Magnesium Level 1.6 Discharge Home Medications: Active Scripts Active Reported Magnesium (Magnesium Oxide) 250 Mg Tablet 250 Mg PO DAILY Calcium 600 + Vit D 200 Tablet (Calcium Carbonate/Vitamin D3) 1 Each Tablet 1 Tab PO DAILY Daily Multiple Vitamin (Multivitamin) 1 Each Tablet 1 Tab PO DAILY Omeprazole 20 Mg Capsule.dr 20 Mg PO BID Ropinirole HCl 1 Mg Tablet 1 Mg PO HS Instructions to patient/family Please see electronic discharge instructions given to patient. Clinical Quality Measures DVT/VTE Risk/Contraindication: Risk Factor Score Per Nursin RFS Level Per Nursing on Admit: 4+=Very High DUNG KEYS DO Feb 06, 2017 09:26
== END 2017-02-06 09:20 | DRG 470 ==
LOC: EDUNIT# 09:51 → ER 09:53 → 4TH 11:00
PROVIDERS: ADMIT Orthopaedic Surgery; ATTEND Orthopaedic Surgery
PROC: 0SR902A Replacement of Right Hip Joint with Metal on Polyethylene Synthetic Substitute, Uncemented, Open Approach (ICD-10-PCS; principal; 2017-02-04 17:26)
DX: S72.011A Unspecified intracapsular fracture of right femur, initial encounter for closed fracture (principal); D62 Acute posthemorrhagic anemia; D69.6 Thrombocytopenia, unspecified; I35.0 Nonrheumatic aortic (valve) stenosis; G25.81 Restless legs syndrome; K58.1 Irritable bowel syndrome with constipation; K21.9 Gastro-esophageal reflux disease without esophagitis; R51 Headache; W01.10XA Fall on same level from slipping, tripping and stumbling with subsequent striking against unspecified object, initial encounter; Y92.019 Unspecified place in single-family (private) house as the place of occurrence of the external cause; Y99.8 Other external cause status
CPT/HCPCS: 36415; 70450; 71010; 72125; 72170; 73501; 80048; 80053; 81000; 82550; 83540; 83735; 83880; 85007; 85025; 85027; 87081; 93005; 93306; 94640; 94664; 94760; 96361; 96374

== ENCOUNTER 2017-02-06 09:07 | Inpatient (IN) | payer MEDICARE ==
[~2017-02-06] VITALS: Ht 160 cm; Wt 57.7 kg
[~2017-02-06 09:07] MED LIST changes: +CALC-6 PO; +MAGN250T13 PO; +MULT-35 PO; +OMEP20CA12 PO
[2017-02-06 09:30] VITALS: BP 97/67
--- NOTE | 2017-02-06 10:04 | Physical Therapy Evaluation ---
PT Evaluation-General Medical Diagnosis Admission Date Medical Diagnosis: right hip fracture Onset Date: Feb 04, 2017 Therapy Diagnosis Therapy Diagnosis: impaired mobility, strength, endurance, ROM Height/Weight Height (Feet): 5 Height (Inches): 3.00 Weight (Pounds): 133 Weight (Ounces): 1.0 Precautions Precautions/Isolations: Fall Prevention, Standard Precautions, Pressure Ulcer Weight Bear Status Right Lower Extremity: Right Weight Bearing/Tolerated Referral Physician: Art Reason for Referral: Evaluation/Treatment Medical History Pertinent Medical History: GERD Additional Medical History RLS, IBS Current History fall x 2; stepped off driveway and fell was able to ambulate to house, slipped on kitchen floor Reviewed History: Yes Social History Home: Single Level Current Living Status: Alone Entry Into Home: Stairs With Railing PT Steps Into Home: 2 Patient has 2-3 steps to go up to enter her home but it sounds like they are small steps with a landing. Prior/Core FIM Prior Level of Function Functional [place] Measure 0=Not Assessed/NA 4=Minimal Assistance 1=Total Assistance 5=Supervision or Setup 2=Maximal Assistance 6=Modified [place] 3=Moderate Assistance 7=Complete [place] Bed Mobility: 7 Transfers (B,C,W/C) (FIM): 7 Gait: 7 PT Evaluation-Current Subjective Patient in bed pre tx, agrees to PT, she is being taken down to rehab. Patient has pain of 3/10 in her right hip. Pt/Family Goals to be independent at home Objective Patient Orientation: Person, Place, Situation Attachments: Oxygen 2L O2 nasal canula ROM/Strength ROM Lower Extremities NT Strenght Lower Extremities NT Neuromuscular (Tone, Coordination, Reflexes) WNL Sensory Vision: Wears Glasses Hearing: Impaired Sensation Right Lower Extremit: Intact Sensation Left Lower Extremity: Intact Sensation Lower Extremities Patient has intact light touch sensation in her right lower extremity, no complaints of numbness or tingling. Transfers Functional [place] Measure 0=Not Assessed/NA 4=Minimal Assistance 1=Total Assistance 5=Supervision or Setup 2=Maximal Assistance 6=Modified [place] 3=Moderate Assistance 7=Complete IndependenceIRFPAI Quality Coding Scale 6 Independent with activity with or without an assistive device 5 Patient requires set up or clean up by helper. Patient completes activity by themselves 4 Supervision or touching assist (CGA). [place] provide cues , steadying assist 3 The helper provides less than half the effort to complete the activity 2 The helper provides more than half the effort to complete the activity 1 Dependent. The helper does all the effort to complete an activity 7 Patient refused to complete or attempt activity 9 The patient did not perform the activity before the current illness or injury 88 Not attempted due to Medical conditions or safety concerns Transfers (B, C, W/C) (FIM): 2 Scootin Rollin Roll Left to Right (QC): 4 Supine to/from Sit: 2 Sit to/from Stand: 4 bed t/f WC(FIM only if WC use): 4 Sit to Lying (QC): 2 Lying to Sitting/Side of Bed(Q: 2 Sit to Stand (QC): 4 Chair/Sbp-ng-Fqsqu Xfer(QC): 4 Car Transfer (QC): 88 Patient performs supine to sit with max assist because she needs assist with her right leg and her trunk to sit. Transfers are CGA. Gait Does the Patient Walk?: Yes Mode of Locomotion: Walk Anticipated Mode of Locomotion: Walk Gait (FIM): 1 Walk 10 feet (QC): 4 Walk 50 ft with 2 Turns(QC): 88 Walk 150 ft (QC): 88 Walking 10ft/uneven surface-QC: 88 Distance: 15' Gait Level of Assist: 4 Gait Persons Needed: 1 Gait Assistive Device: FWW Comments/Gait Description Patient can ambulate 15' with a rolling walker with CGA and wheelchair follow. Patient has a very hard time advancing both of her feet and slowly slides them across the floor. She is only able to perform a step-to gait with the right leg far out in front. Wheelchair Training Does the Pt Use a Wheelchair?: Yes Wheelchair (FIM): 2 Distance: 50' Wheelchair Level of Assist: 4 Wheel 50 ft with 2 turns (QC): 3 Type of Wheelchair: Manual Patient can propel a manual wheelchair 50' with min assist. Stairs Stairs (FIM): 0 If not tested on admit;explain Patient cannot attempt stairs safely at this time due to weakness and not being able to lift either foot off the floor. Balance Sitting Static: Normal Sitting Dynamic: Normal Standing Static: Fair Standing Dynamic: Fair Picking up an Object (QC): 88 Treatment LAQ right side for 5 min, standing heel raises x10 and mini-squats x10 Assessment/Needs Patient has impaired mobility, strength, endurance, ROM post right hip fracture. Rehab Potential: Fair PT Short Term Goals Short Term Goals Time Frame: Feb 13, 2017 Transfers (B,C,W/C) (FIM): 5 Gait (FIM): 2 Gait Distance Comment: 50' Gait Level of Assist: 4 Gait Assistive Device: FWW PT Longterm Goals Luster Applicator Goals PT Luster Applicator Goals Time Frame: Feb 27, 2017 Transfers (B,C,W/C) (FIM): 6 Sit to Lying (QC): 6 Lying-Sitting on Side/Bed(QC): 6 Sit to Stand (QC): 6 Rollin Roll Left to Right (QC): 6 Chair/Xhd-jh-Vbkfa Xfer(QC): 6 Car Transfer (QC): 4 Gait (FIM): 5 Distance: 150' Walk 10 feet (QC): 4 Walk 10ft-Uneven Surface(QC): 4 Walk 50ft with 2 Turns (QC): 4 Walk 150 ft (QC): 4 Gait Level of Assist: 5 Gait Assistive Device: FWW Stairs (FIM): 2 # of Steps: 4 1 Step (curb) (QC): 4 4 Steps (QC): 4 Stairs Level Of Assist: 4 PT Plan Problem List Problem List: Activity Tolerance, Functional Strength, Safety, Balance, Gait, Transfer, Bed Mobility, ROM Treatment/Plan Treatment Plan: Continue Plan of Care Treatment Plan: Bed Mobility, Education, Functional Activity Priya, Functional Strength, Group Therapy, Gait, Safety, Therapeutic Exercise, Transfers Treatment Duration: Feb 27, 2017 Frequency: At least 5 of 7 days/Wk (IRF) Estimated Hrs Per Day: 1.5 hours per day Patient and/or Family Agrees t: Yes Safety Risks/Education Patient Education: Gait Training, Transfer Techniques, Reviewed Precautions, Correct Positioning, W/C Management, Safety Issues Teaching Recipient: Patient Teaching Methods: Demonstration, Discussion Response to Teaching: Reinforcement Needed Discharge Recommendations Plan Patient will perform bed mobility and transfer training, balance and endurance training, functional strengthening, stair training, gait training, and education , to improve functional mobility and independence at home. Therapy D/C Recommendations: Home w/ Family Support Time/GCodes Time In: 900 Time Out: 1000 Total Billed Treatment Time: 60 Total Billed Treatment 1 visit EVM 30' GT 10' EX 15' ANNAMARIA GARCIA PT Feb 06, 2017 10:04
[2017-02-06] MEDS ORDERED: ONDANSETRON 4 MG (ZOFRAN) ORAL DISSOLVE TAB PO PRN (11:00)
[2017-02-06] MEDS ORDERED: morphine INJ 4 MG/ML 1 ML (VIAL/SYRINGE) IVP PRN (11:00)
[2017-02-06] MEDS ORDERED: SENNA W/DOCUSATE (SENOKOT S) TABLET PO PRN ×2 (11:00→11:45)
[2017-02-06] MEDS ORDERED: RT-ALBUTEROL SULF 2.5 MG/3 ML PRE-MIX VIAL INH PRN (11:00)
[2017-02-06] MEDS ORDERED: BISACODYL 10 MG SUPP (DULCOLAX) PR PRN (11:45)
[2017-02-06] MEDS ORDERED: LACTULOSE SYRUP 10GM/15ML (ENULOSE) 30ML UDC PO PRN (11:45)
--- NOTE | 2017-02-06 12:06 | Occupational Therapy Eval ---
OT Evaluation-General/PLF Medical Diagnosis Admission Date 02-06-17 Medical Diagnosis: right hip fracture Onset Date: Feb 04, 2017 Therapy Diagnosis Therapy Diagnosis: Decreased ADL skills Height/Weight Height (Feet): 5 Height (Inches): 3.00 Weight (Pounds): 133 Weight (Ounces): 0.0 Precautions Precautions/Isolations: Fall Prevention, Standard Precautions, Pressure Ulcer Weight Bear Status Weight Bearing Restriction: Weight Bearing/Tolerated Hip precautions Referral Physician: Art Referral Reason: Activity Tolerance, Self Care, Evaluation/Treatment, Strengthening/ROM Medical History Pertinent Medical History: GERD Additional Medical History Choclear implants Current History Pt. fell twice, fracturing right hip. Reviewed History: Yes Social History Home: Single Level Current Living Status: Alone Entry Into Home: Stairs With Railing Steps Into Home: 2 ADL-Prior Level of Function ADL PLOF Comments Pt. was independent with daily tasks. Pt. was able to bathe and dress with independence. DME/Equipment Comments Pt. has a walker and wheelchair. OT Current Status Subjective Pt. does not report pain level. Appearance Pt.up in chair. Agrees to work with OT. Mental Status/Objective Patient Orientation: Person, Place, Time, Situation Attachments: IV, Oxygen Current Glasses/Contacts: Yes Hearing Aids: Yes Hand Dominance: Right Upper Extremity ROM WFL Upper Extremity Coordination intact Upper Extremity Strength 3+/5 bilateral UE strength ADL-Treatment Functional [place] Measure 0=Not Assessed/NA 4=Minimal Assistance 1=Total Assistance 5=Supervision or Setup 2=Maximal Assistance 6=Modified [place] 3=Moderate Assistance 7=Complete IndependenceIRFPAI Quality Coding Scale 6 Independent with activity with or without an assistive device 5 Patient requires set up or clean up by helper. Patient completes activity by themselves 4 Supervision or touching assist (CGA). [place] provide cues , steadying assist 3 The helper provides less than half the effort to complete the activity 2 The helper provides more than half the effort to complete the activity 1 Dependent. The helper does all the effort to complete an activity 7 Patient refused to complete or attempt activity 9 The patient did not perform the activity before the current illness or injury 88 Not attempted due to Medical conditions or safety concerns Grooming (FIM): 5 Oral Hygiene (QC): 4 Bathing (FIM): 3 (Pt. able to wash upper body and wash gil area while seated on BSC. Unable to wash LE.) Shower/Bathe Self (QC): 2 Upper Body Dressing (FIM): 5 Upper Body Dressing (QC): 4 Lower Body Dressing (FIM): 2 (Max assist due to hip precautions.) Lower Body Dressing (QC): 2 On/Off Footwear (QC): 2 Toileting (FIM): 4 (Pt. is able to cleanse rear gil area while seated on BSC.) Toileting Hygiene (QC): 2 Transfers (B, C, W/C) (FIM): 4 Toilet/Commode Transfer (FIM): 4 (CGA) Toilet Transfer (QC): 4 Other Treatments Pt. completed spongebathe up on BSC. Declined showering today. Pt. is educated about AE. Does not practice today. Verbalizes understanding regarding hip precautions. Education OT Patient Education: Correct positioning, Modified ADL techniques, Progress toward Goal/Update tx plan, Purpose of tx/functional activities, Reviewed precautions, Rehab process, Transfer techniques, Use of adapted equipment Teaching Recipient: Patient Teaching Methods: Demonstration, Discussion Response to Teaching: Verbalize Understanding, Return Demonstration OT Short Term Goals Short Term Goals Time Frame: Feb 13, 2017 Eating(FIM): 5 Grooming(FIM): 5 Bathing(FIM): 4 Upper Body Dressing(FIM): 5 Lower Body Dressing(FIM): 4 Toileting(FIM): 5 Transfers (B,C,W/C) (FIM): 5 Toilet/Commode Transfer(FIM): 5 Shower Transfer(FIM): 4 Additional Short Term Goals: 1-Demonstrate ADL Tasks, 2-Verbalize Understanding , 3-ImproveStrength/Priya 1=Demonstrate adherence to instructed precautions during ADL tasks. 2=Patient will verbalize/demonstrate understanding of assistive devices/ modifications for ADL. 3=Patient will improve strength/tolerance for activity to enable patient to perform ADL's. OT Halfway Goals Guide Dog Trainer Goals Time Frame: Feb 20, 2017 Eating (FIM): 6 Eating (QC): 6 Groomin Oral Hygiene (QC): 5 Bathing(FIM): 5 Shower/Bathe Self (QC): 5 Upper Body Dressing(FIM): 6 Upper Body Dressing (QC): 5 Lower Body Dressing(FIM): 5 Lower Body Dressing (QC): 5 On/Off Footwear (QC): 5 Toileting(FIM): 6 Toileting Hygiene (QC): 6 Transfers (B,C,W/C) (FIM): 6 Toilet/Commode Transfer(FIM): 6 Toilet/Commode Transfer (QC): 6 Shower Transfer(FIM): 5 Additional Goals: 1-Demonstrate ADL Tasks, 2-Verbalize Understanding, 3- ImproveStrength/Priya 1=Demonstrate adherence to instructed precautions during ADL tasks. 2=Patient will verbalize/demonstrate understanding of assistive devices/ modifications for ADL. 3=Patient will improve strength/tolerance for activity to enable patient to perform ADL's. OT Education/Plan Problem List/Assessment Assessment: Decreased Activ Tolerance, Decreased UE Strength, Dependent Transfers, Impaired Bed Mobility, Impaired Funct Balance, Impaired I ADL's, Impaired Self-Care Skills, Restricted Funct UE ROM Discharge Recommendations Plan/Recommendations: Continue POC Therapy D/C Recommendations: Home w/ Family Support, Occupational Therapy Home Care, Scheduled Assistance Equpiment Recommendations-D/C: Bath Chair Treatment Plan/Plan of Care Treatment,Training & Education: Yes Patient would benefit from OT for education, treatment and training to promote independence in ADL's, mobility, safety and/or upper extremity function for ADL' s. Plan of Care: ADL Retraining, Functional Mobility, UE Funct Exercise/Act Treatment Duration: Feb 20, 2017 Frequency: At least 5 of 7 days/Wk (IRF) Estimated Hrs Per Day: 1.5 hours per day Agreement: Yes Rehab Potential: Good Time/GCodes Start Time: 10:00 Stop Time: 11:30 Total Time Billed (hr/min): 90 Billed Treatment Time 1, EVM x 30minutes, ADL x 60minutes JOHN MARRERO OT Feb 06, 2017 12:05
--- OUTSIDE RECORDS SUMMARY | 2017-02-06 13:36 | XMS REPORT | Continuity of Care Document ---
Author Author [facility] Organization [facility] Address Unknown Phone Unavailable Allergies Active Description Code Type Severity Reaction Onset Reported/Identified Relationship to Patient Clinical Status Yes NKANo Known Allergies NKA Miscellaneous Allergy Unknown N/A 10/06/2005 Yes No Known Drug Allergies [id number] Drug Allergy Unknown N/A 02/04/2017 Medications There is no data. Problems Date Dx Coded Attending Type Code Diagnosis Diagnosed By 12/07/2012 SCOT HUNTER FACC, LAYLA GONZALEZ CCDS Ot 424.1 AORTIC VALVE DISORDER 12/07/2012 SCOT HUNTER FACC, LAYLA GONZALEZ CCDS Ot 530.81 ESOPHAGEAL REFLUX 12/07/2012 LAYLA ELLISON MD, FACC, FACP CCDS Ot 786.09 RESPIRATORY ABNORM NEC 12/07/2012 SCOT [facility] Ot 786.59 CHEST PAIN NEC 12/07/2012 SCOT HUNTER FACC, [facility] CCD[facility] Ot V58.69 OTH MED,LT,CURRENT USE [...] E78.00 PURE HYPERCHOLESTEROLEMIA, UNSPECIFIED 01/15/2016 KEYS DO, UDNG Ot E78.1 PURE HYPERGLYCERIDEMIA 01/15/2016 KEYS DO, [...] 780.4 DIZZINESS AND GIDDINESS 02/11/2016 SCOT HUNTER [facility], LAYLA [facility] CCDS Ot 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 02/11/2016 SCOT HUNTER FACC, [facility] CCDS Ot 397.0 TRICUSPID VALVE DISEASE 02/11/2016 SCOT HUNTER [facility], [facility] CCDS Ot 786.59 CHEST PAIN NEC 02/11/2016 LUDMILA DO DUNG Ot V76.12 OTH SCREEN MAMMO-MALIGN NEOPLASM OF FRANC 02/11/2016 KEYS DO, DUNG Ot 285.9 ANEMIA NOS 02/11/2016 KEYS DO, DUNG Ot 579.0 CELIAC DISEASE 02/11/2016 KEYS DO UDNG Ot 729.1 MYALGIA AND MYOSITIS NOS 02/11/2016 [...] Ot D64.9 ANEMIA, UNSPECIFIED 02/11/2016 KEYS DO, DNUG Ot Z00.00 ENCNTR FOR [...] urinalysis with reflex to culture NO NRG Methicillin resistant Staphylococcus aureus (MRSA) screening culture - 13:30 Methicillin resistant Staphylococcus aureus (MRSA) screening culture NEG NRG Complete blood count (CBC) with automated [...] plasma albumin measurement (mass/volume) 2.9 g/dL 3.2-4.5 IRON TEST - 02/05/17 05:55 Serum or plasma iron measurement (mass/volume) 28 % 35- 180 Automated blood complete blood count (hemogram) panel - 02/06/17 06:57 Blood leukocytes automated count (number/volume) 9.4 10*3/uL 4.3-11.0 Blood erythrocytes automated count (number/volume) 2.72 10*6/uL 4.35-5.85 Venous blood hemoglobin measurement (mass/volume) 8.9 g/dL 11.5-16.0 Blood hematocrit (volume fraction) 27 % 35-52 Automated erythrocyte mean corpuscular volume 100 [foz_us] 80-99 Automated erythrocyte mean corpuscular hemoglobin (mass per erythrocyte) 33 pg 25-34 Automated erythrocyte mean corpuscular hemoglobin concentration measurement ( mass/volume) 33 g/dL 32-36 Automated erythrocyte distribution width ratio 14.0 % 10.0-14.5 Automated blood platelet count (count/volume) 89 10*3/uL 130-400 Automated blood platelet mean volume measurement 11.5 [foz_us] 7.4-10.4 Whole blood basic metabolic panel - 02/06/17 06:57 Serum or plasma sodium measurement (moles/volume) 138 mmol/L 135-145 Serum or plasma potassium measurement (moles/volume) 3.7 mmol/L 3.6-5.0 Serum or plasma chloride measurement (moles/volume) 107 mmol/L 98-107 Carbon dioxide 25 mmol/L 21-32 Serum or plasma anion gap determination (moles/volume) 6 mmol/L 5-14 Serum or plasma urea nitrogen measurement (mass/volume) 10 mg/dL 7-18 Serum or plasma creatinine measurement (mass/volume) 0.65 mg/dL 0.60-1.30 Serum or plasma urea nitrogen/creatinine mass ratio 15 NRG Serum or plasma creatinine measurement with calculation of estimated glomerular filtration rate > NRG Serum or plasma glucose measurement (mass/volume) 144 mg/dL 70-105 Serum or plasma calcium measurement (mass/volume) 7.8 mg/dL 8.5-10.1 Magnesium - 02/06/17 06:57 Magnesium 1.6 mg/dL 1.8-2.4 Encounters ACCT No. Visit Date/Time Discharge Status Pt. Type Provider Facility Loc./Unit Complaint [id number] 11/17/2016 10:22:00 11/17/2016 12:40:00 DIS Outpatient COLLINS CARDOSO MD [facility] ENDO CHANGE IN BOWEL [id number] 11/06/2016 05:42:00 11/06/2016 14:58:00 DIS Outpatient COLLINS CARDOSO MD [facility] PREOP CHANGE IN BOWEL [id number] 03/24/2016 09:37:00 03/24/2016 12:10:00 DIS Outpatient COLLINS CARDOSO MD [facility] ENDO REFLUX [id number] 03/20/2016 05:50:00 03/20/2016 11:48:00 DIS Outpatient COLLINS CARDOSO MD [facility] PREOP REFLUX [id number] 02/11/2016 17:39:00 02/11/2016 23:59:59 CLS Outpatient KLEVER GREENE DO [facility] LAB PNEUMONIA,COUGH [id number] 01/15/2016 08:25:00 01/15/2016 23:59:59 CLS Outpatient DUNG KEYS DO [facility] LAB Z00.00, E780.0, E78.1 [id number] 08/31/2015 07:27:00 08/31/2015 23:59:59 CLS Outpatient COLLINS CARDOSO MD [facility] RAD RUQ PAIN [id number] 07/18/2015 10:37:00 07/18/2015 23:59:59 CLS Outpatient DUNG KEYS DO [facility] LAB ENCOUNTER FOR GENERAL ADULT EXAM [id number] 07/17/2015 11:24:00 07/17/2015 23:59:59 CLS Outpatient KEYS DO, DUNG [facility] LAB ENCOUNTER FOR GENERAL ADULT MED EXAM, ANEMIA [id number] 01/16/2015 08:13:00 01/16/2015 23:59:59 CLS Outpatient KEYS DO, DUNG [facility] LAB ANEMIA [id number] 06/30/2014 08:11:00 06/30/2014 23:59:59 CLS Outpatient KEYS DO, DUNG [facility] LAB MED MONITORING,HLTH SCREEN,ANEMIA NOS,NEUROPATHY, [id number] 02/06/2014 10:21:00 02/06/2014 13:15:00 DIS Outpatient COLLINS CARDOSO MD [facility] SDC CHANGE IN BOWL HABITS ; GERD [id number] 02/01/2014 06:19:00 02/01/2014 23:59:59 CLS Outpatient COLLINS CARDOSO MD [facility] PREOP CHANGE IN BOWEL HABITS; GERD [id number] 01/30/2014 10:37:00 01/30/2014 23:59:59 CLS Outpatient KEYS DO, DUNG [facility] RAD SCREENING [id number] 01/18/2014 11:45:00 01/18/2014 23:59:59 CLS Outpatient KEYS DO, DUNG [facility] LAB MEDICATION MONITORING LUMAR RADICULOPATHY RLS GERD [id number] 11/14/2013 14:00:00 11/14/2013 14:58:00 DIS Outpatient MADY HAYNES MD [facility] CARD DDD [id number] 02/21/2013 14:07:00 02/21/2013 23:59:59 CLS Outpatient KEYS DO, DUNG [facility] LAB CELIAC SPRUE MALABSORPTION,MUSCLE PAIN,ANEMIA [id number] 12/31/2012 13:02:00 12/31/2012 23:59:59 CLS Outpatient KEYS DO, DUNG [facility] RAD SCREENING [id number] 12/07/2012 08:04:00 12/07/2012 16:00:00 DIS Outpatient SCOT HUNTER FACC, LAYLA GONZALEZ CCDS [facility] CATH CP [id number] 11/19/2012 08:33:00 11/19/2012 23:59:59 CLS Outpatient LAYLA ELLISON MD, FACC, FACP CCDS [facility] CARD CHEST DISCOMFORT [id number] 10/13/2012 08:06:00 10/13/2012 23:59:59 CLS Outpatient DUNG KEYS DO [facility] LAB L LEG PAIN,SYNCOPE, DIZZINESS,NEUROPATHY,IDIOPATHIC [id number] 02/10/2017 13:00:00 PEN Preadmit DUNG KEYS DO [facility] CARD R06.00 ACUTE DYSPNEA [id number] 02/04/2017 11:00:00 ACT Inpatient ESTELA HUNTER, MOOKIE Adams [facility] 4TH RT HIP FX [id number] 08/06/2011 14:18:00 Document Registration [id number] 01/29/2011 10:55:00 Document Registration [id number] 05/27/2010 09:33:00 Document Registration
--- NOTE | 2017-02-06 13:39 | ST Cognitive Linguistic Eval ---
Speech Evaluation-General Medical Diagnosis right hip fracture Onset Date: Feb 04, 2017 Therapy Diagnosis Therapy Diagnosis: Cognitive Linguistic Skills WNL Precautions Precautions/Isolations: Fall Prevention, Standard Precautions, Pressure Ulcer Referral Referring Physician: Dr. Kermit Cordova Reason for Referral: Evaluation/Treatment Cognitive Evaluation Medical History Pertinent Medical History: GERD Reviewed History: Yes Social History Current Living Status: Alone Speech PLF-Current Status Prior Level of Function The patient denied prior challenges with speech, language, or cognition. Subjective The patient was recently admitted to [facility] with a diagnosis of right hip fracture. The patient greeted the clinician appropriately and was agreeable to participation in the cognitive evaluation. Language Eval: Auditory Comprehends Simple Yes/No Ques: Functional Indent/Objects Multiple [place]: Functional Ident/Pics in Multiple [place]: Functional Follows 1-Step Commands: Functional Follows Complex Directions: Functional Follows General Conversations: Functional Language Eval: Verbal Language Completes Spontaneous Greeting: Functional Produces Auto, Serial Info: Functional Imitates Simple Words/Phrases: Functional Word Finding: Functional Requests Basic Needs: Functional States Basic Personal Info: Functional Expresses Complex Ideas: Functional Cognitive Patient Orientation The patient was oriented to month, day of week, date, and year. Objective Cognitive Domain Attention: WNL Memory: WNL Problem Solving: Functional Objective Impression The patient demonstrated cognitive linguistic skills within normal limits and appropriate for completion of ADL's. Communication/Social Cognition Comprehension: 6 Expression: 6 Social Interaction: 6 Problem Solvin Memory: 6 Speech Patient Assess Expression of Ideas/Wants: Expression (4) Understanding [place] Content: Understands (4) Brief Interview-Mental Status: Yes Repetition of Three Words: Three (3) Temporal Orientation: Year: Correct (3) Temporal Orientation: Month: Accurate within 5 days(2) Temporal Orientation: Day: Correct (1) Recall : Wear to say "Sock": Yes, no cue required (2) Recall : Color: Yes, no cue required (2) Recall : Bed: Yes, no cue required (2) Speech-Plan Treatment Plan Speech Therapy Treatment Plan: Discontinue ST Evaluation, only. Frequency: Modified Program (IRF) Estimated Hrs Per Day: Other Rehab Potential: Good Safety Risks/Education Teaching Recipient: Patient Teaching Methods: Discussion Response to Teaching: Verbalize Understanding Education Topics Provided: Results, Recommendations, Plan of Care Time Speech Therapy Time In: 13:12 Speech Therapy Time Out: 13:27 Total Billed Time: 15 Billed Treatment Time 1, JONATHAN BROWN Feb 06, 2017 13:39
--- NOTE | 2017-02-06 14:32 | Physical Therapy Daily Note ---
PT Daily Note-Current Subjective Patient in wheelchair at bedside pre tx, agrees to PT, has pain of 7/10. Appearance Patient in bed post tx with nurse call, phone, tray, all needs met. Mental Status Patient Orientation: Person, Place, Situation Transfers Functional [place] Measure 0=Not Assessed/NA 4=Minimal Assistance 1=Total Assistance 5=Supervision or Setup 2=Maximal Assistance 6=Modified [place] 3=Moderate Assistance 7=Complete IndependenceIRFPAI Quality Coding Scale 6 Independent with activity with or without an assistive device 5 Patient requires set up or clean up by helper. Patient completes activity by themselves 4 Supervision or touching assist (CGA). [place] provide cues , steadying assist 3 The helper provides less than half the effort to complete the activity 2 The helper provides more than half the effort to complete the activity 1 Dependent. The helper does all the effort to complete an activity 7 Patient refused to complete or attempt activity 9 The patient did not perform the activity before the current illness or injury 88 Not attempted due to Medical conditions or safety concerns Transfers (B, C, W/C) (FIM): 4 Scootin Rollin Supine to/from Sit: 4 Sit to/from Stand: 4 Bed to/from Chair: 4 cues for hand placement and safety, needs assist with right leg getting into bed and occasional assist to stand from low surfaces Weight Bearing Right Lower Extremity: Right Weight Bearing/Tolerated Left Lower Extremity: Left Full Weight Bearing Gait Training Gait (FIM): 2 Distance: 20', 100' Gait Level of Assist: 4 Gait Persons Needed: 1 Gait Assistive Device: FWW Exercises NuStep Minutes: 15 NuStep Workload: 4 Treatments bed mobility and transfers, ambulation, functional strengthening Assessment Current Status: Fair Progress improving endurance and ambulation PT Short Term Goals Short Term Goals Time Frame: Feb 13, 2017 Transfers (B,C,W/C) (FIM): 5 Gait (FIM): 2 Gait Distance Comment: 50' Gait Level of Assist: 4 Gait Assistive Device: FWW Wheelchair Distance: 50' PT Mcfp Goals Welder First Class Goals PT Mcfp Goals Time Frame: Feb 27, 2017 Transfers (B,C,W/C) (FIM): 6 Sit to Lying (QC): 6 Lying-Sitting on Side/Bed(QC): 6 Sit to Stand (QC): 6 Rollin Roll Left to Right (QC): 6 Chair/Uzf-yy-Noytg Xfer(QC): 6 Car Transfer (QC): 4 Gait (FIM): 5 Distance: 150' Walk 10 feet (QC): 4 Walk 10ft-Uneven Surface(QC): 4 Walk 50ft with 2 Turns (QC): 4 Walk 150 ft (QC): 4 Gait Level of Assist: 5 Gait Assistive Device: FWW Stairs (FIM): 2 # of Steps: 4 1 Step (curb) (QC): 4 4 Steps (QC): 4 Stairs Level Of Assist: 4 PT Plan Problem List Problem List: Activity Tolerance, Functional Strength, Safety, Balance, Gait, Transfer, Bed Mobility, ROM Treatment/Plan Treatment Plan: Continue Plan of Care Treatment Plan: Bed Mobility, Education, Functional Activity Priya, Functional Strength, Group Therapy, Gait, Safety, Therapeutic Exercise, Transfers Treatment Duration: Feb 27, 2017 Frequency: At least 5 of 7 days/Wk (IRF) Estimated Hrs Per Day: 1.5 hours per day Patient and/or Family Agrees t: Yes Safety Risks/Education Patient Education: Gait Training, Transfer Techniques, Correct Positioning, Safety Issues Teaching Recipient: Patient Teaching Methods: Demonstration, Discussion Time/GCodes Time In: 1355 Time Out: 1425 Total Billed Treatment Time: 30 Total Billed Treatment 1 visit GT 15' EX 15' ANNAMARIA GARCIA PT Feb 06, 2017 14:32
[2017-02-06] MEDS: MAGNESIUM 1 GM/100 ML IVPB 100 ML IV SCH ×2 (15:00→16:06)
[2017-02-06] MEDS: RIVAROXABAN 10 MG TABLET (XARELTO) PO SCH (17:23)
[2017-02-06 17:35] VITALS: BP 112/64
[2017-02-06] MEDS: PANTOPRAZOLE 20 MG TABLET (PROTONIX) PO SCH (20:40)
[2017-02-06] MEDS: DOCUSATE SODIUM 100 MG (COLACE) CAP PO SCH (20:40)
[2017-02-06] MEDS: rOPINIRole 1 MG (REQUIP) TABLET PO SCH (20:40)
[2017-02-06] MEDS: POLYETHYLENE GLYCOL 17 GM (MIRALAX) PACK PO SCH (20:41)
[2017-02-06] MEDS: HYDROcodone/APAP 10 MG/325 MG (LORTAB) TAB PO PRN (20:41)
[2017-02-06] MEDS: OSELTAMIVIR 75 MG (TAMIFLU) BOX OF 10 PO SCH (20:41)
[2017-02-06] MEDS ORDERED: OSELTAMIVIR 75 MG (TAMIFLU) BOX OF 10 PO SCH (21:00)
[2017-02-06] MEDS ORDERED: NON-FORMULARY MEDICATION 1 EA EA PO SCH (21:00)
--- NOTE | 2017-02-06 21:14 | PM&R Post Admission Assessment ---
Post Admission Physician Asses The preadmission screen agrees with the post admission assessment that the patient is a good candidate for inpatient rehabilitation. The patient will have a comprehensive program of inpatient rehabilitation with a goal of maximizing level of functional independence prior to discharge home with family and [facility]. The patient will have PT/OT ninety minutes per day, each discipline, five days a week for gait, strengthening, conditioning, balance, ADLs, any patient/family/caregiver training as necessary. Speech therapy to do cognitive assessment and treat as indicated. Rehabilitation nursing to assist with bowel, bladder, skin, wound care, medication administration, pain management. Photoengraving Retoucher to assist with discharge planning, community reentry. SCD's for DVT prophylaxis. She appears to be well motivated to participate in three hours of therapy a day. She should be able to tolerate three hours of therapy a day from a medical and surgical standpoint. She should benefit from the three hours of therapy a day. She has a reasonable discharge plan, reasonable discharge rehabilitation goals and a supportive family. She has various comorbidities that need to be closely monitored with medications and treatments adjusted on a daily basis as needed. These include: G IBS Postop anemia Barriers to discharge for this patient who had been independent prior to this are for her to be modified independent to supervision for ADLs and mobility skills prior to discharge home with [family], so as to lessen the burden of the caregivers. Risks for this patient include: 1. Fall 2. Fracture 3. DVT 4. Pulmonary embolism 5. Wound infection 6. Skin breakdown 7. Contractures 8. Poorly controlled pain 9. Urinary retention 10. UTI 11. Respiratory infection 12. Aspiration 13. Postop anemia 15. IBS 16. Worsening Estimated Length of Stay: 21 days Prognosis: Rehab prognosis appears good for goal of discharge home with family modified independent to supervision for ADLs and mobility skills. MARYLOU CYR MD Feb 06, 2017 21:14
[2017-02-06] MEDS: RT-ALBUTEROL SULF 2.5 MG/3 ML PRE-MIX VIAL INH SCH (21:34)
--- NOTE | 2017-02-06 23:31 | HISTORY AND PHYSICAL ---
DATE OF SERVICE: CHIEF COMPLAINT: Difficulty with walking. HISTORY OF PRESENT ILLNESS: The patient is a 81-year-old , who lives alone in [place], has supportive family nearby, who fell twice sustaining a right femur fracture. The patient was admitted to the service of Dr. Wang, underwent repair, was made weightbearing as tolerated and followed by PCP, Dr. Mcintosh alone. The patient was seen in consultation by Dr. Chapa as well regarding aortic stenosis. The patient was placed on iron replacement for postop anemia. Therapies were begun. The patient was felt to be appropriate for inpatient rehabilitation unit. She was on O2 by nasal cannula postoperatively as well. She had a decline in her functional independence and was referred to inpatient rehabilitation unit. Currently, she is mod assist with transfers and gait with a walker, set up for grooming, mod assist for bathing, set up for body dressing, max assist for lower body dressing, min assist for toilet transfers. She has a walker and wheelchair at home. Her H and H on 02/06/2017 was 8.9/27, WBC 9.4, MCV 100 and platelet count 89. PAST MEDICAL HISTORY: There is a history of aortic stenosis, chronic back pain, GERD and irritable bowel syndrome. PAST SURGICAL HISTORY: Right cochlear implant. She has bilateral hearing aids. ALLERGIES: No known medication allergies. FAMILY HISTORY: Noncontributory. SOCIAL HISTORY: As per above. REVIEW OF SYSTEMS: A 10-point review of systems is significant for history of falls, right hip fracture, irritable bowel syndrome with predominance and constipation. MEDICATIONS: Iron sucrose IV q.48 hours. Mag ox 400 mg p.o. daily, calcium with vitamin D 600 mg p.o. daily, multivitamins with minerals one tablet p.o. daily, Colace 100 mg p.o. b.i.d., MiraLax 17 grams p.o. at bedtime, Albuterol canister b.i.d., Requip 1 mg p.o. at bedtime, Protonix 40 mg p.o. b.i.d., Xarelto 10 mg p.o. daily, lactulose 10 mg p.o. b.i.d. p.r.n. constipation, senna one tablet p.o. b.i.d. p.r.n. constipation, albuterol respiratory treatments q.4 hours p.r.n. shortness of breath, hydrocodone APAP 10/325 one tablet p.o. q.4h p.r.n. moderate pain, Tramadol 50 mg p.o. q.6 hours p.r.n. mild pain. PHYSICAL EXAMINATION: GENERAL: A pleasant female appearing stated age, alert, oriented and no acute distress. VITAL SIGNS: She is afebrile, pulse 97, respirations 18, blood pressure 112/64 and O2 sat 97% on room air. HEENT: Vision, she can tell number of fingers at 18 inches. Hearing is somewhat impaired. She has bilateral hearing aids. Speech is intact. No oral lesion is noted. NECK: Supple without mass. HEART: Regular rhythm. There is some systolic murmur present. CHEST: Clear. ABDOMEN: Soft and nontender. Bowel sounds present. EXTREMITIES: Trace edema. Right ankle incision site healing well. There is no calf tenderness. No lower leg edema on the left. MUSCULOSKELETAL: The patient has functional range of motion in both upper extremities and left lower extremity. Right lower extremity limited due to fracture and repair of the right femur. NEUROLOGIC: Sensation is grossly intact to touch. Cognition functional. She has functional strength in both upper limbs and left lower limb, right lower limb limited to hip due to fracture and repair. She is able to plantar and dorsiflex at the right ankle. She is able to knee flex and extend on the right. IMPRESSION: 1. Ambulatory dysfunction secondary to fall with a right femur fracture status post repair, orthopedics, Dr. Wang. Weightbearing as tolerated. 2. Postop anemia on replacement. 3. Irritable bowel syndrome with chronic constipation, on meds. 4. Aortic stenosis, Dr. Chapa has seen. 5. Restless leg syndrome, on Requip at night. PLAN: The patient will have a comprehensive program of inpatient rehabilitation goal to maximize the level of functional independence prior to discharge home with family and home health care. The patient will have PT and OT 90 minutes per day each discipline, 5 days a week for 2 weeks for gait, strengthening, conditioning, balance, ADLs, any the patient's family caregiver training necessary, adaptive equipment training necessary. Speech therapy to do cognitive assessment and treat as indicated. Rehabilitation nursing to assist with bowel, bladder, skin, wound care, medication administration, pain management and social work faculty member for discharge planning, community reentry. The respiratory therapy to assist with respiratory treatments, monitoring O2 sats as needed. Follow up with Dr. Wang and hospitalist service/Dr. Mcintosh as per their schedule. Follow up with cardiology as needed. ESTIMATED LENGTH OF STAY: 21 days. PROGNOSIS: Rehab prognosis appears good for goal of discharging home with family and home health care, modified independent to supervision for ADLs and mobility skills. DIET: Regular. CODE STATUS: Full code. ADDITIONAL DIAGNOSES: 1. OAC, on Xarelto. 2. Presbycusis, has hearing aids. 3. Hypomagnesemia, on replacement. PLAN: Followup BMP, CBC and serum magnesium level in a.m. Job ID: [id number] DocumentID: [id number] Dictated Date: 02/06/2017 21:28:26 People Manager Date: 02/06/2017 23:30:18 Dictated By: MARYLOU CYR MD
[2017-02-07 05:08] VITALS: BP 102/59
[2017-02-07 05:58] LABS: MEAN PLATELET VOLUME 11.5 FL (7.4-10.4); RED BLOOD COUNT 2.45 10^6/uL (4.35-5.85); RED CELL DISTRIBUTION WIDTH 14.2 % (10.0-14.5); WHITE BLOOD COUNT 9.3 10^3/uL (4.3-11.0)
[2017-02-07] MEDS: PANTOPRAZOLE 20 MG TABLET (PROTONIX) PO SCH ×2 (06:09→21:08)
[2017-02-07] MEDS: MULTIVIT W/MINERALS TAB (THERAGRAN M) PO SCH (06:09)
[2017-02-07] MEDS: CALCIUM CARB + VIT D 600 MG (CALCARB + D) TAB PO SCH (06:09)
[2017-02-07 06:20] LABS: BUN/CREATININE RATIO 14; CALCIUM 8.3 MG/DL (8.5-10.1); CARBON DIOXIDE 28 MMOL/L (21-32); CHLORIDE 104 MMOL/L (98-107); CREATININE SERUM 0.64 MG/DL (0.60-1.30); GFR ESTIMATED > 60; GLUCOSE 140 MG/DL (70-105); MAGNESIUM 1.8 MG/DL (1.8-2.4); POTASSIUM 3.9 MMOL/L (3.6-5.0); SODIUM 139 MMOL/L (135-145)
[2017-02-07] MEDS: DOCUSATE SODIUM 100 MG (COLACE) CAP PO SCH ×2 (08:06→21:08)
[2017-02-07] MEDS: MAGNESIUM OXIDE (MAG-OX)400 MG TAB PO SCH (08:06)
[2017-02-07] MEDS: OSELTAMIVIR 75 MG (TAMIFLU) BOX OF 10 PO SCH ×2 (08:08→21:09)
--- NOTE | 2017-02-07 08:46 | Physical Therapy Daily Note ---
PT Daily Note-Current Subjective Patient in bed pre tx, agrees to PT, she states she has very little pain but is just very tired, O2 sat is 96% Appearance Patient in wheelchair at bedside post tx with nurse call, phone, tray, family in the room. She has OT right after PT. Mental Status Patient Orientation: Normal For Age Transfers Functional [place] Measure 0=Not Assessed/NA 4=Minimal Assistance 1=Total Assistance 5=Supervision or Setup 2=Maximal Assistance 6=Modified [place] 3=Moderate Assistance 7=Complete IndependenceIRFPAI Quality Coding Scale 6 Independent with activity with or without an assistive device 5 Patient requires set up or clean up by helper. Patient completes activity by themselves 4 Supervision or touching assist (CGA). [place] provide cues , steadying assist 3 The helper provides less than half the effort to complete the activity 2 The helper provides more than half the effort to complete the activity 1 Dependent. The helper does all the effort to complete an activity 7 Patient refused to complete or attempt activity 9 The patient did not perform the activity before the current illness or injury 88 Not attempted due to Medical conditions or safety concerns Transfers (B, C, W/C) (FIM): 4 Scootin Rollin Supine to/from Sit: 4 Sit to/from Stand: 4 Bed to/from Chair: 4 Patient needs min assist for supine to sit with her right leg. She can scoot to the edge of the bed without assist but it is difficult. CGA for transfers and sit to stand. Weight Bearing Right Lower Extremity: Right Weight Bearing/Tolerated Left Lower Extremity: Left Full Weight Bearing Gait Training Gait (FIM): 1 Distance: 20', 15' Gait Level of Assist: 4 Gait Persons Needed: 1 Gait Assistive Device: FWW Very slow, antalgic, patient has a very hard time advancing her right leg this morning. Treatments bed mobility and transfers, ambulation, patient was also toileted once Assessment Current Status: Fair Progress improved bed mobility and transfers PT Short Term Goals Short Term Goals Time Frame: Feb 13, 2017 Transfers (B,C,W/C) (FIM): 5 Gait (FIM): 2 Gait Distance Comment: 50' Gait Level of Assist: 4 Gait Assistive Device: FWW Wheelchair Distance: 50' PT Ground Transportation Operator Goals Alf Goals PT Ground Transportation Operator Goals Time Frame: Feb 27, 2017 Transfers (B,C,W/C) (FIM): 6 Sit to Lying (QC): 6 Lying-Sitting on Side/Bed(QC): 6 Sit to Stand (QC): 6 Rollin Roll Left to Right (QC): 6 Chair/Kqw-dx-Prddn Xfer(QC): 6 Car Transfer (QC): 4 Gait (FIM): 5 Distance: 150' Walk 10 feet (QC): 4 Walk 10ft-Uneven Surface(QC): 4 Walk 50ft with 2 Turns (QC): 4 Walk 150 ft (QC): 4 Gait Level of Assist: 5 Gait Assistive Device: FWW Stairs (FIM): 2 # of Steps: 4 1 Step (curb) (QC): 4 4 Steps (QC): 4 Stairs Level Of Assist: 4 PT Plan Problem List Problem List: Activity Tolerance, Functional Strength, Safety, Balance, Gait, Transfer, Bed Mobility, ROM Treatment/Plan Treatment Plan: Continue Plan of Care Treatment Plan: Bed Mobility, Education, Functional Activity Priya, Functional Strength, Group Therapy, Gait, Safety, Therapeutic Exercise, Transfers Treatment Duration: Feb 27, 2017 Frequency: At least 5 of 7 days/Wk (IRF) Estimated Hrs Per Day: 1.5 hours per day Patient and/or Family Agrees t: Yes Safety Risks/Education Patient Education: Gait Training, Transfer Techniques, Reviewed Precautions, Correct Positioning, Safety Issues Teaching Recipient: Patient Teaching Methods: Demonstration, Discussion Response to Teaching: Reinforcement Needed Time/GCodes Time In: 755 Time Out: 840 Total Billed Treatment Time: 45 Total Billed Treatment 1 visit FA 15' GT 30' ANNAMARIA GARCIA PT Feb 07, 2017 08:46
--- NOTE | 2017-02-07 09:44 | Occupational Ther Daily Note ---
OT Current Status-Daily Note Subjective Pt alert, sitting in w/c. Pt is fatigue, but agreed to therapy. Daughter present in room. Mental Status/Objective Patient Orientation: Person, Place, Time, Situation Functional [place] Measure 0=Not Assessed/NA 4=Minimal Assistance 1=Total Assistance 5=Supervision or Setup 2=Maximal Assistance 6=Modified [place] 3=Moderate Assistance 7=Complete [place] Attachments: IV, Other-See Comments (hearing aids) ADL-Treatment Functional [place] Measure 0=Not Assessed/NA 4=Minimal Assistance 1=Total Assistance 5=Supervision or Setup 2=Maximal Assistance 6=Modified [place] 3=Moderate Assistance 7=Complete IndependenceIRFPAI Quality Coding Scale 6 Independent with activity with or without an assistive device 5 Patient requires set up or clean up by helper. Patient completes activity by themselves 4 Supervision or touching assist (CGA). [place] provide cues , steadying assist 3 The helper provides less than half the effort to complete the activity 2 The helper provides more than half the effort to complete the activity 1 Dependent. The helper does all the effort to complete an activity 7 Patient refused to complete or attempt activity 9 The patient did not perform the activity before the current illness or injury 88 Not attempted due to Medical conditions or safety concerns Bathing (FIM): 4 (Using grabbar, hand held shower, long handle sponge and shower bench pt is able to complete with CGA in standing while pt cleanses gil area and buttocks. Assist to dry feet.) Bathing Location: L Arm, R Arm, L Upper Leg, R Upper Leg, L Lower Leg ( including foot), R Lower Leg (including foot), Chest, Abdomen, Buttocks, Perineal Area Shower/Bathe Self (QC): 3 Upper Body (FIM): 5 (Setup then pt is able to complete all upper body dressing. ) Upper Body Dressing (QC): 5 Lower Body Dressing (FIM): 3 (Assist using AE for lower body dressing to initiate over feet then CGA in standing while pt hikes pants over hips.) Lower Body Dressing (QC): 3 On/Off Footwear (QC): 3 Shower Transfer(FIM): 4 (Using grabbar, w/c and shower bench pt is able to complete with min A.) Mod A for transfer back to bed. After therapy, pt lying in bed with call light/ phone in reach. All needs met in room. OT Short Term Goals Short Term Goals Time Frame: Feb 13, 2017 Eating(FIM): 5 Grooming(FIM): 5 Bathing(FIM): 4 Upper Body Dressing(FIM): 5 Lower Body Dressing(FIM): 4 Toileting(FIM): 5 Transfers (B,C,W/C) (FIM): 5 Toilet/Commode Transfer(FIM): 5 Shower Transfer(FIM): 4 Additional Short Term Goals: 1-Demonstrate ADL Tasks, 2-Verbalize Understanding , 3-ImproveStrength/Priya 1=Demonstrate adherence to instructed precautions during ADL tasks. 2=Patient will verbalize/demonstrate understanding of assistive devices/ modifications for ADL. 3=Patient will improve strength/tolerance for activity to enable patient to perform ADL's. OT Long-Term Goals Brown Stock Washer Goals Time Frame: Feb 20, 2017 Eating (FIM): 6 Eating (QC): 6 Groomin Oral Hygiene (QC): 5 Bathing(FIM): 5 Shower/Bathe Self (QC): 5 Upper Body Dressing(FIM): 6 Upper Body Dressing (QC): 5 Lower Body Dressing(FIM): 5 Lower Body Dressing (QC): 5 On/Off Footwear (QC): 5 Toileting(FIM): 6 Toileting Hygiene (QC): 6 Transfers (B,C,W/C) (FIM): 6 Toilet/Commode Transfer(FIM): 6 Toilet/Commode Transfer (QC): 6 Shower Transfer(FIM): 5 Additional Goals: 1-Demonstrate ADL Tasks, 2-Verbalize Understanding, 3- ImproveStrength/Priya 1=Demonstrate adherence to instructed precautions during ADL tasks. 2=Patient will verbalize/demonstrate understanding of assistive devices/ modifications for ADL. 3=Patient will improve strength/tolerance for activity to enable patient to perform ADL's. OT Education/Plan Discharge Recommendations Plan/Recommendations: Continue POC Treatment Plan/Plan of Care Patient would benefit from OT for education, treatment and training to promote independence in ADL's, mobility, safety and/or upper extremity function for ADL' s. Plan of Care: ADL Retraining, Functional Mobility, UE Funct Exercise/Act Treatment Duration: Feb 20, 2017 Frequency: At least 5 of 7 days/Wk (IRF) Estimated Hrs Per Day: 1.5 hours per day Agreement: Yes Rehab Potential: Good Time/GCodes Start Time: 08:40 Stop Time: 09:40 Total Time Billed (hr/min): 60 Billed Treatment Time 1 visit-ADL 4 (60 min) KEITH GRANADOS Feb 07, 2017 09:44
[2017-02-07] MEDS: RT-ALBUTEROL SULF 2.5 MG/3 ML PRE-MIX VIAL INH SCH (10:18)
[2017-02-07] MEDS: IRON SUCROSE INJECTION 200 MG in NS (IVPB) 100 ML IV SCH (11:47)
--- NOTE | 2017-02-07 12:12 | Therapy Group Daily Note ---
Therapy Daily Group Note Patient Education Topic Home Safety Exercises LE Seated Exercise, UE Exercise Other/Notes Pt transported to OT/PT group via w/c in therapy gym. Group consisted of introductions (name, place living, favorite [place] memory), socialization, ARU description, seated UE/LE exercises, winter safety, brain teasers for cognition, memory and problem solving activities. Pt introduced self appropriately. Contributed to conversations throughout group with peers. Pt was able to complete B UE and L LE exercises well. Due to pain unable to complete R LE exercises. Pt increased fatigue and had difficulty staying awake throughout group. Pt was able to toss taylor bag to designated area to answer brain teaser questions. Pt verbalized understanding of winter safety education and was able to contribute to discussion. After therapy, pt lying in bed with call light/phone in reach. All needs met in room. Start Time: 10:30 Stop Time: 12:00 Total Billed Treatment Time: 90 Total Billed Treatment 1-GRP KEITH GRANADOS Feb 07, 2017 12:12
[2017-02-07] MEDS ORDERED: BISACODYL 10 MG SUPP (DULCOLAX) PR NR (12:16)
--- NOTE | 2017-02-07 12:19 | Progress Note-Hospitalist ---
Progress Note Progress Notes/Assess & Plan Date Seen 02/07/17 Time Seen by Provider: 11:45 Diagonsis/Assessment & Plan Patient feeling a bit listless after getting out of bed at 0430 then going back to bed. Daughter has come in from [place] for xmas and now is at the bedside Pain is controlled Nebs continue due to subtle wheezing noted right upper lobes that remain now Hgb 8.0 and is receiving the 2nd dose of Venofer today currently No BM yet since admit so increasing meds since constipation predominant IBS hx AFVSS, pleasant, appears fatigued RRR w/murmur no changes Wheeze subtle right upper lobe no tachypnea No edema Laboratory Tests 02/07/17 05:45 Assessment: Acute right femur fracture sustained in fall at home s/p repair uncomplicated POD # 2 History of moderate aortic stenosis in 2013 was in process of referral to Dr. Brizuela so stat echo ordered and Dr. Brizuela has seen in consultation but stable Restless leg syndrome Irritable bowel syndrome constipation predominant with post op constipation continues so increasing meds today Post operative anemia due to acute blood loss hgb 8.0 on Venofer Thrombocytopenia source unknown monitor closely Plan: Dulcolax supp Lactulose Miralax SSE Venofer Improve diet consumption DUNG KEYS DO Feb 07, 2017 12:19
[2017-02-07] MEDS: LACTULOSE SYRUP 10GM/15ML (ENULOSE) 30ML UDC PO SCH ×2 (12:36→21:09)
--- NOTE | 2017-02-07 12:39 | Progress Note-Cardiology ---
Cardiology SOAP Progress Note Subjective: No cp or palp or syncope. Notes gen malaise. Daughter by bedside Objective: I&O/Vital Signs Vital Sign - Last 12Hours 02/07/17 02/07/17 02/07/17 05:08 09:07 10:18 Temp 99.3 Pulse 94 Resp 20 B/P (MAP) 102/59 (73) Pulse Ox 92 93 O2 Delivery Room Air Room Air Room Air Intake and Output 02/07/17 00:00 Intake Total 780 ml Output Total 500 ml Balance 280 ml Weight (Pounds): 133 Weight (Ounces): 0.0 Weight (Calculated Kilograms): [id number] Constitutional: AAO x 3, well-developed, well-nourished, other (thin-appearing) Respiratory: No accessory muscle use, other (good bilat air entry) Cardiovascular: regular rate-rhythm, S1 and S2, systolic murmur (3/6 MSM) Gastrointestional: No tender, soft, No guarding, audible bowel sounds Extremities: No clubbing, No cyanosis, No significant edema Neurologic/Psychiatric: oriented x 3, grossly intact, power is 5/5 both on sides Skin: No rash on exposed areas, No ulcerations on exposed areas Results/Procedures: Labs Laboratory Tests 02/07/17 05:45: White Blood Count 9.3, Red Blood Count 2.45L, Hemoglobin 8.0L, Hematocrit 25L, Mean Corpuscular Volume 100H, Mean Corpuscular Hemoglobin 33, Mean Corpuscular Hemoglobin Concent 33, Red Cell Distribution Width 14.2, Platelet Count 98L, Mean Platelet Volume 11.5H, Sodium Level 139, Potassium Level 3.9, Chloride Level 104, Carbon Dioxide Level 28, Anion Gap 7, Blood Urea Nitrogen 9, Creatinine 0.64, Estimat Glomerular Filtration Rate > 60, BUN/Creatinine Ratio 14, Glucose Level 140H, Calcium Level 8.3L, Magnesium Level 1.8 A/P: Assessment: Bipolar R hemiarthroplasty on 02/04/17 for R hip fracture due a nonsyncopal fall Worsening anemia post-op, being managed by the Med [facility] (Dr Mcintosh Mild thrombocytopenia post-op, stable Severe aortic stenosis. Echo of shows aortic valve area 0.8 sq cm, LVEF 55-60%, PASP 35 mmHg and grade I diastolic dysfunction of the LV No significant CAD on card cath of 2012 H/o GERD Plan: * I reviewed her post-op course * I had a detailed discussion with her and her daughter regarding her CV issues * Monitor labs [facility] ELLISON [facility] Feb 07, 2017 12:39
[2017-02-07 18:18] VITALS: BP 122/77
[2017-02-07] MEDS: RIVAROXABAN 10 MG TABLET (XARELTO) PO SCH (18:26)
[2017-02-07] MEDS: rOPINIRole 1 MG (REQUIP) TABLET PO SCH (21:08)
[2017-02-07] MEDS: POLYETHYLENE GLYCOL 17 GM (MIRALAX) PACK PO SCH (21:09)
[2017-02-08 05:03] VITALS: BP 116/69
[2017-02-08] MEDS: PANTOPRAZOLE 20 MG TABLET (PROTONIX) PO SCH ×2 (06:06→21:10)
[2017-02-08] MEDS: CALCIUM CARB + VIT D 600 MG (CALCARB + D) TAB PO SCH (06:06)
[2017-02-08] MEDS: MULTIVIT W/MINERALS TAB (THERAGRAN M) PO SCH (06:06)
[2017-02-08] MEDS: RT-ALBUTEROL SULF 2.5 MG/3 ML PRE-MIX VIAL INH SCH ×3 (08:00→21:10)
[2017-02-08] MEDS: HYDROcodone/APAP 10 MG/325 MG (LORTAB) TAB PO PRN ×2 (08:25→22:01)
[2017-02-08] MEDS: OSELTAMIVIR 75 MG (TAMIFLU) BOX OF 10 PO SCH ×2 (08:25→21:12)
[2017-02-08] MEDS: DOCUSATE SODIUM 100 MG (COLACE) CAP PO SCH ×2 (08:25→21:11)
[2017-02-08] MEDS: MAGNESIUM OXIDE (MAG-OX)400 MG TAB PO SCH (08:25)
[2017-02-08] MEDS: LACTULOSE SYRUP 10GM/15ML (ENULOSE) 30ML UDC PO SCH ×2 (08:26→21:11)
--- NOTE | 2017-02-08 15:34 | Progress Note-Cardiology ---
Cardiology SOAP Progress Note Subjective: No cp or palp or syncope or shortness of breath Objective: I&O/Vital Signs Vital Sign - Last 12Hours 02/08/17 02/08/17 02/08/17 05:03 08:00 09:27 Temp 98.0 Pulse 90 Resp 18 B/P (MAP) 116/69 (85) Pulse Ox 97 94 O2 Delivery Room Air Room Air Room Air Intake and Output 02/08/17 00:00 Intake Total 1130 ml Balance 1130 ml Weight (Pounds): 133 Weight (Ounces): 0.0 Weight (Calculated Kilograms): 60.323943 Constitutional: AAO x 3, well-developed, well-nourished, other (thin-appearing) Respiratory: No accessory muscle use, other (good bilat air entry) Cardiovascular: regular rate-rhythm, S1 and S2, systolic murmur (3/6 MSM) Gastrointestional: No tender, soft, No guarding, audible bowel sounds Extremities: No clubbing, No cyanosis, No significant edema Neurologic/Psychiatric: oriented x 3, grossly intact, power is 5/5 both on sides Skin: No rash on exposed areas, No ulcerations on exposed areas A/P: Assessment: Bipolar R hemiarthroplasty on 02/04/17 for R hip fracture due a nonsyncopal fall Worsening anemia post-op, being managed by the [facility] [place] (Dr Mcintosh Mild thrombocytopenia post-op, stable Severe aortic stenosis. Echo of shows aortic valve area 0.8 sq cm, LVEF 55-60%, PASP 35 mmHg and grade I diastolic dysfunction of the LV No significant CAD on card cath of 2012 H/o GERD Plan: * Continue current regimen * I her CV issues with her and her daughter * Monitor labs from time to time LAYLA ELLISON MD FACP FAC CCDS Feb 08, 2017 15:34
[2017-02-08] MEDS: RIVAROXABAN 10 MG TABLET (XARELTO) PO SCH (17:17)
[2017-02-08 17:31] VITALS: BP 106/67
[2017-02-08] MEDS: rOPINIRole 1 MG (REQUIP) TABLET PO SCH (21:11)
[2017-02-08] MEDS: POLYETHYLENE GLYCOL 17 GM (MIRALAX) PACK PO SCH (21:12)
[2017-02-09] MEDS: MULTIVIT W/MINERALS TAB (THERAGRAN M) PO SCH (06:03)
[2017-02-09] MEDS: CALCIUM CARB + VIT D 600 MG (CALCARB + D) TAB PO SCH (06:03)
[2017-02-09] MEDS: PANTOPRAZOLE 20 MG TABLET (PROTONIX) PO SCH ×2 (06:03→20:56)
[2017-02-09 06:04] VITALS: BP 115/73
[2017-02-09] MEDS: HYDROcodone/APAP 10 MG/325 MG (LORTAB) TAB PO PRN (06:07)
[2017-02-09 07:41] VITALS: BP 115/73
[2017-02-09] MEDS: RT-ALBUTEROL SULF 2.5 MG/3 ML PRE-MIX VIAL INH SCH (07:41)
[2017-02-09] MEDS: OSELTAMIVIR 75 MG (TAMIFLU) BOX OF 10 PO SCH ×2 (08:40→20:58)
[2017-02-09] MEDS: LACTULOSE SYRUP 10GM/15ML (ENULOSE) 30ML UDC PO SCH ×2 (08:41→20:57)
[2017-02-09] MEDS: MAGNESIUM OXIDE (MAG-OX)400 MG TAB PO SCH (08:41)
[2017-02-09] MEDS: DOCUSATE SODIUM 100 MG (COLACE) CAP PO SCH ×2 (08:41→20:57)
[2017-02-09] MEDS: CATHETER FLUSH 10 ML SYR IV PRN (11:18)
[2017-02-09] MEDS: IRON SUCROSE INJECTION 200 MG in NS (IVPB) 100 ML IV SCH (11:18)
[2017-02-09] MEDS: RIVAROXABAN 10 MG TABLET (XARELTO) PO SCH (17:31)
[2017-02-09 17:43] VITALS: BP 118/74
[2017-02-09] MEDS: rOPINIRole 1 MG (REQUIP) TABLET PO SCH (20:56)
[2017-02-09] MEDS: POLYETHYLENE GLYCOL 17 GM (MIRALAX) PACK PO SCH (20:57)
[2017-02-10] MEDS: HYDROcodone/APAP 10 MG/325 MG (LORTAB) TAB PO PRN (04:52)
[2017-02-10 05:00] VITALS: BP 125/77
[2017-02-10] MEDS: CALCIUM CARB + VIT D 600 MG (CALCARB + D) TAB PO SCH (06:17)
[2017-02-10] MEDS: PANTOPRAZOLE 20 MG TABLET (PROTONIX) PO SCH ×2 (06:17→21:33)
[2017-02-10] MEDS: MULTIVIT W/MINERALS TAB (THERAGRAN M) PO SCH (06:17)
--- NOTE | 2017-02-10 07:55 | Individualized Plan of Care ---
Individualized Plan of Care Rehab Nursing IPOC Order Admission Date Feb 06, 2017 at 09:20 Current Orders Orders Admission-Acute Rehab Unit (02/06/17 09:09) Pt Evaluate/Treat Request (02/06/17 09:09) Request Ot Evaluate & Treat (02/06/17 09:09) Request For Cognitive Services (02/06/17 09:09) Ambulate TID (02/06/17 09:24) Sequential Compression Device (02/06/17 09:24) Dvt/Vte Risk - Notifiy Physici (02/06/17 09:24) Code/Resuscitation (02/06/17 10:51) Telemetry (02/06/17 10:51) General/Regular (02/06/17 Lunch) Albuterol Pre-Mix Nebs (Rt) (Proventil (02/06/17 11:00) Docusate Sodium Capsule (Colace Capsule) (02/06/17 21:00) Hydrocodone/Apap 10/325 Tablet (Lortab 1 (02/06/17 11:00) Ondansetron Oral Dissolve Tab (Zofran (02/06/17 11:00) Oseltamivir 75 Mg (10's) Caps (Tamiflu 7 (02/06/17 21:00) Polyethylene Glycol Powder Pkt (Miralax (02/06/17 21:00) Rivaroxaban Tablet (Xarelto Tablet) (02/06/17 18:00) Senna S Tablet (Senokot S Tablet) (02/06/17 11:00) Sodium Chloride Flush (Catheter Flush Sy (02/06/17 11:00) Iron Sucrose Injection (Venofer Injectio (02/07/17 11:00) Morphine Injection (Morphine Injection (02/06/17 11:00) Tramadol Tablet (Ultram Tablet) (02/06/17 11:00) Consult Physician (02/06/17 10:51) Consult Physician (02/06/17 11:11) Albuterol Pre-Mix Nebs (Rt) (Proventil (02/06/17 21:00) Weight Bearing Status (02/06/17 11:11) Incentive Spirometry (Nursing) Q2H (02/06/17 11:11) Calcium Carbonate W/Vitamin D3 (Calcarb (02/07/17 07:00) Magnesium Oxide Tablet (Mag Ox Tablet) (02/07/17 09:00) Therapeutic Multivitamin Tab (Vitamins, (02/07/17 07:00) Ropinirole Tablet (Requip Tablet) (02/06/17 21:00) Non-Formulary Medication (Non-Formulary (02/06/17 21:00) Nirmal Boles 09,21 (02/06/17 11:18) Turn, Cough, And Deep Breathe Q2H (02/06/17 11:18) Nursing Communication (Patient (02/06/17 11:18) Admission Arrival Bed Request (02/06/17 09:20) Lactulose Oral Solution (Enulose Oral So (02/06/17 11:45) Bisacodyl Suppository (Dulcolax Supposit (02/06/17 11:45) Senna S Tablet (Senokot S Tablet) (02/06/17 11:45) Soap Suds Enema Until Clear (02/06/17 11:40) Patient Visit (02/06/17 ) Speech Sound Lang Comp (02/06/17 ) Basic Metabolic Panel (02/07/17 05:00) Cbc No Diff (02/07/17 05:00) Magnesium (02/07/17 05:00) Magnesium 1 Gm/100 Ml Ivpb (Magnesium [place] (02/06/17 14:30) Pantoprazole Tablet (Protonix Tablet) (02/06/17 21:00) Patient Visit (02/06/17 ) Pt Eval Moderate Complexity (02/06/17 ) Gait Training, Ea 15 Min (02/06/17 ) Exercise Therap, Ea 15 Min (02/06/17 ) Patient Visit (02/06/17 ) Exercise Therap, Ea 15 Min (02/06/17 ) Gait Training, Ea 15 Min (02/06/17 ) Oseltamivir 75 Mg (10's) Caps (Tamiflu 7 (02/06/17 21:00) Patient Visit (02/07/17 ) Functional Activities, Ea 15 (02/07/17 ) Gait Training, Ea 15 Min (02/07/17 ) Lactulose Oral Solution (Enulose Oral So (02/07/17 12:15) Bisacodyl Suppository (Dulcolax Supposit (02/07/17 12:16) Soap Suds Enema Until Clear (02/07/17 12:12) Mat Protocol-Rt Rfs (02/09/17 07:45) Other Nursing Orders: Monitor for urinary retention and postop constipation PT IPOC Problem List: Activity Tolerance, Functional Strength, Safety, Balance, Gait, Transfer, Bed Mobility, ROM Treatment Plan: Continue Plan of Care Bed Mobility, Education, Functional Activity Priya, Functional Strength, Group Therapy, Gait, Safety, Therapeutic Exercise, Transfers Treatment Duration: Feb 27, 2017 Frequency: At least 5 of 7 days/Wk (IRF) Estimated Hrs Per Day: 1.5 hours per day OT IPOC Problems: Decreased Activ Tolerance, Decreased UE Strength, Dependent Transfers , Impaired Bed Mobility, Impaired Funct Balance, Impaired I ADL's, Impaired Self -Care Skills, Restricted Funct UE ROM OT Treatment, Training and Edu: Yes Plan of Care: ADL Retraining, Functional Mobility, UE Funct Exercise/Act Treatment Duration: Feb 20, 2017 Frequency: At least 5 of 7 days/Wk (IRF) Estimated Hrs Per Day: 1.[address] IPOC Speech Therapy Treatment Plan: Discontinue ST Treatment Duration: Feb 10, 2017 Frequency: Modified Program (IRF) Estimated Hrs Per Day: Other Physician IPOC Medical Issues being managed closely and that require the 24 hour availability of a physician:postopanemia and Aortic stenosis Medical Issues: Bowel/Bladder Function, DVT Prophylaxis, Falls Precautions, Infection Protection, Pain Management, Weight Bearing Precautions, Wound Care, Other (List) (per above) Brief Synthesis of Preadmission Screen, Post-Admission Evaluation, and Therapy Evaluations:81 yo female who sustained a femur frx s/p fall Had been Independent prior to injury Referred to IRU for ongoing care and therapies Has postop anemia and on replaacement Being followed by Cardiology for Aortic stenosis. Medical Prognosis: good Anticipated Length of Stay: 02-20-17 Rehab Goals Modified Independece to supervision for adls and mobility skills Anticipated discharge destinat: Home with family and [facility] MARYLOU CYR MD Feb 10, 2017 07:55
[2017-02-10] MEDS: DOCUSATE SODIUM 100 MG (COLACE) CAP PO SCH ×2 (09:00→20:46)
[2017-02-10] MEDS: LACTULOSE SYRUP 10GM/15ML (ENULOSE) 30ML UDC PO SCH ×2 (09:00→20:46)
[2017-02-10] MEDS: MAGNESIUM OXIDE (MAG-OX)400 MG TAB PO SCH (09:49)
[2017-02-10] MEDS: OSELTAMIVIR 75 MG (TAMIFLU) BOX OF 10 PO SCH (09:49)
--- NOTE | 2017-02-10 09:55 | Physical Therapy Daily Note ---
PT Daily Note-Current Subjective Patient in recliner pre tx, agrees to PT, has pain of 4-5/10. Patient states she has been having more pain in her right ankle but not currently. Appearance Patient in recliner post tx with nurse call, phone, tray, all needs met. Mental Status Patient Orientation: Normal For Age Transfers Functional [place] Measure 0=Not Assessed/NA 4=Minimal Assistance 1=Total Assistance 5=Supervision or Setup 2=Maximal Assistance 6=Modified [place] 3=Moderate Assistance 7=Complete IndependenceIRFPAI Quality Coding Scale 6 Independent with activity with or without an assistive device 5 Patient requires set up or clean up by helper. Patient completes activity by themselves 4 Supervision or touching assist (CGA). [place] provide cues , steadying assist 3 The helper provides less than half the effort to complete the activity 2 The helper provides more than half the effort to complete the activity 1 Dependent. The helper does all the effort to complete an activity 7 Patient refused to complete or attempt activity 9 The patient did not perform the activity before the current illness or injury 88 Not attempted due to Medical conditions or safety concerns Transfers (B, C, W/C) (FIM): 4 Sit to/from Stand: 4 CGA Weight Bearing Right Lower Extremity: Right Weight Bearing/Tolerated Left Lower Extremity: Left Full Weight Bearing Gait Training Gait (FIM): 2 Distance: 50'x2, 100' Gait Level of Assist: 5 Gait Persons Needed: 1 Gait Assistive Device: FWW Slow, antalgic, tends to slide her right foot across the floor, will often step too far forward into the walker Exercises Seated Therapy Exercises: Ankle pumps, Long arc quads, Hip abd/add Seated Reps: 20 NuStep Minutes: 15 NuStep Workload: 5 Treatments transfers, ambulation, functional strengthening Assessment Current Status: Fair Progress improving ambulation and endurance PT Short Term Goals Short Term Goals Time Frame: Feb 13, 2017 Transfers (B,C,W/C) (FIM): 5 Gait (FIM): 2 Gait Distance Comment: 50' Gait Level of Assist: 4 Gait Assistive Device: FWW Wheelchair Distance: 50' PT Waxing Machine Operator Helper Goals Waxing Machine Operator Helper Goals PT Fdc Goals Time Frame: Feb 27, 2017 Transfers (B,C,W/C) (FIM): 6 Sit to Lying (QC): 6 Lying-Sitting on Side/Bed(QC): 6 Sit to Stand (QC): 6 Rollin Roll Left to Right (QC): 6 Chair/Wny-wu-Oebva Xfer(QC): 6 Car Transfer (QC): 4 Gait (FIM): 5 Distance: 150' Walk 10 feet (QC): 4 Walk 10ft-Uneven Surface(QC): 4 Walk 50ft with 2 Turns (QC): 4 Walk 150 ft (QC): 4 Gait Level of Assist: 5 Gait Assistive Device: FWW Stairs (FIM): 2 # of Steps: 4 1 Step (curb) (QC): 4 4 Steps (QC): 4 Stairs Level Of Assist: 4 PT Plan Problem List Problem List: Activity Tolerance, Functional Strength, Safety, Balance, Gait, Transfer, Bed Mobility, ROM Treatment/Plan Treatment Plan: Continue Plan of Care Treatment Plan: Bed Mobility, Education, Functional Activity Priya, Functional Strength, Group Therapy, Gait, Safety, Therapeutic Exercise, Transfers Treatment Duration: Feb 27, 2017 Frequency: At least 5 of 7 days/Wk (IRF) Estimated Hrs Per Day: 1.5 hours per day Patient and/or Family Agrees t: Yes Safety Risks/Education Patient Education: Gait Training, Transfer Techniques, Correct Positioning, Disease Process, Safety Issues Teaching Recipient: Patient Teaching Methods: Demonstration, Discussion Response to Teaching: Reinforcement Needed Time/GCodes Time In: 900 Time Out: 1000 Total Billed Treatment Time: 60 Total Billed Treatment 1 visit EX 20' GT 40' ANNAMARIA GARCIA PT Feb 10, 2017 09:55
--- NOTE | 2017-02-10 11:43 | Occupational Ther Daily Note ---
OT Current Status-Daily Note Subjective Pt agrees to treatment this am. Reports 3/10 right hip pain. Mental Status/Objective Functional [place] Measure 0=Not Assessed/NA 4=Minimal Assistance 1=Total Assistance 5=Supervision or Setup 2=Maximal Assistance 6=Modified [place] 3=Moderate Assistance 7=Complete [place] ADL-Treatment Pt in restroom with nursing when therapist arrives. Pt transferred to toilet with CGA using grab bar. Pt able to complete toileting hygiene, requires CGA for balance during clothing management. Pt declined shower today, would like a sponge bath. Sponge bath completed seated EOB. Upper body bathing completed with set up. Pt washed gil area and bilateral upper legs with set up. CGA to wash buttocks. Pt declined to remove ASHWIN hose to wash lower legs and feet. Don pullover shirt with set up. Pt used adaptive equipment for LE dressing. Pt donned underwear and pants with minimal assistance using chief deputy coroner to start over feet. Stood with CGA for pant hike. Pt donned bilateral socks with SBA using sock aid, verbal cues for technique. Increased time required for ADL tasks. Functional [place] Measure 0=Not Assessed/NA 4=Minimal Assistance 1=Total Assistance 5=Supervision or Setup 2=Maximal Assistance 6=Modified [place] 3=Moderate Assistance 7=Complete IndependenceIRFPAI Quality Coding Scale 6 Independent with activity with or without an assistive device 5 Patient requires set up or clean up by helper. Patient completes activity by themselves 4 Supervision or touching assist (CGA). [place] provide cues , steadying assist 3 The helper provides less than half the effort to complete the activity 2 The helper provides more than half the effort to complete the activity 1 Dependent. The helper does all the effort to complete an activity 7 Patient refused to complete or attempt activity 9 The patient did not perform the activity before the current illness or injury 88 Not attempted due to Medical conditions or safety concerns Upper Body (FIM): 5 Upper Body Dressing (QC): 5 Lower Body Dressing (FIM): 4 Lower Body Dressing (QC): 3 On/Off Footwear (QC): 4 Toileting (FIM): 4 (CGA) Toileting Hygiene (QC): 4 Toilet/Commode Transfer (FIM): 4 (CGA) Toilet Transfer (QC): 4 Other Treatment Pt completed bilateral UE exercises to promote increased strength needed for ADLs and transfers. Pt performed three exercises x15 reps with moderate resistance (red) theraband. Cues for proper exercise technique. Pt sitting in chair with needs met after session. Education OT Patient Education: Modified ADL techniques Teaching Recipient: Patient Teaching Methods: Demonstration, Discussion Response to Teaching: Return Demonstration OT Short Term Goals Short Term Goals Time Frame: Feb 13, 2017 Eating(FIM): 5 Grooming(FIM): 5 Bathing(FIM): 4 Upper Body Dressing(FIM): 5 Lower Body Dressing(FIM): 4 Toileting(FIM): 5 Transfers (B,C,W/C) (FIM): 5 Toilet/Commode Transfer(FIM): 5 Shower Transfer(FIM): 4 Additional Short Term Goals: 1-Demonstrate ADL Tasks, 2-Verbalize Understanding , 3-ImproveStrength/Pirya 1=Demonstrate adherence to instructed precautions during ADL tasks. 2=Patient will verbalize/demonstrate understanding of assistive devices/ modifications for ADL. 3=Patient will improve strength/tolerance for activity to enable patient to perform ADL's. OT Coping Machine Assembler Goals Detention Goals Time Frame: Feb 20, 2017 Eating (FIM): 6 Eating (QC): 6 Groomin Oral Hygiene (QC): 5 Bathing(FIM): 5 Shower/Bathe Self (QC): 5 Upper Body Dressing(FIM): 6 Upper Body Dressing (QC): 5 Lower Body Dressing(FIM): 5 Lower Body Dressing (QC): 5 On/Off Footwear (QC): 5 Toileting(FIM): 6 Toileting Hygiene (QC): 6 Transfers (B,C,W/C) (FIM): 6 Toilet/Commode Transfer(FIM): 6 Toilet/Commode Transfer (QC): 6 Shower Transfer(FIM): 5 Additional Goals: 1-Demonstrate ADL Tasks, 2-Verbalize Understanding, 3- ImproveStrength/Priya 1=Demonstrate adherence to instructed precautions during ADL tasks. 2=Patient will verbalize/demonstrate understanding of assistive devices/ modifications for ADL. 3=Patient will improve strength/tolerance for activity to enable patient to perform ADL's. OT Education/Plan Discharge Recommendations Plan/Recommendations: Continue POC Treatment Plan/Plan of Care Patient would benefit from OT for education, treatment and training to promote independence in ADL's, mobility, safety and/or upper extremity function for ADL' s. Plan of Care: ADL Retraining, Functional Mobility, UE Funct Exercise/Act Treatment Duration: Feb 20, 2017 Frequency: At least 5 of 7 days/Wk (IRF) Estimated Hrs Per Day: 1.5 hours per day Agreement: Yes Rehab Potential: Good Time/GCodes Start Time: 08:00 Stop Time: 09:00 Total Time Billed (hr/min): 60 Billed Treatment Time 1 visit, ADLx3(45minutes), EX(15minutes) BROCK MOTT OT Feb 10, 2017 11:43
--- NOTE | 2017-02-10 11:58 | Occupational Ther Daily Note ---
OT Current Status-Daily Note Subjective Pt sitting in chair, agrees to treatment. Mental Status/Objective Functional [place] Measure 0=Not Assessed/NA 4=Minimal Assistance 1=Total Assistance 5=Supervision or Setup 2=Maximal Assistance 6=Modified [place] 3=Moderate Assistance 7=Complete [place] ADL-Treatment Functional [place] Measure 0=Not Assessed/NA 4=Minimal Assistance 1=Total Assistance 5=Supervision or Setup 2=Maximal Assistance 6=Modified [place] 3=Moderate Assistance 7=Complete IndependenceIRFPAI Quality Coding Scale 6 Independent with activity with or without an assistive device 5 Patient requires set up or clean up by helper. Patient completes activity by themselves 4 Supervision or touching assist (CGA). [place] provide cues , steadying assist 3 The helper provides less than half the effort to complete the activity 2 The helper provides more than half the effort to complete the activity 1 Dependent. The helper does all the effort to complete an activity 7 Patient refused to complete or attempt activity 9 The patient did not perform the activity before the current illness or injury 88 Not attempted due to Medical conditions or safety concerns Other Treatment Pt sit to stand with CGA. Gait to therapy gym with FWW. Pt has slow pace and requires increased time for mobility. Cues for safety and walker use. Arm bike [id number] to increase overall strength and activity tolerance needed for functional tasks. Pt performed task with minimal resistance and steady pace. No rest breaks needed. Graded clothespin activity with bilateral hands to increase acid regenerator/pinch strength for ADLs. Pt performed task without difficulty. Pt returned to room, transferred to chair with CGA. Sitting in chair with needs met after session. OT Short Term Goals Short Term Goals Time Frame: Feb 13, 2017 Eating(FIM): 5 Grooming(FIM): 5 Bathing(FIM): 4 Upper Body Dressing(FIM): 5 Lower Body Dressing(FIM): 4 Toileting(FIM): 5 Transfers (B,C,W/C) (FIM): 5 Toilet/Commode Transfer(FIM): 5 Shower Transfer(FIM): 4 Additional Short Term Goals: 1-Demonstrate ADL Tasks, 2-Verbalize Understanding , 3-ImproveStrength/Priya 1=Demonstrate adherence to instructed precautions during ADL tasks. 2=Patient will verbalize/demonstrate understanding of assistive devices/ modifications for ADL. 3=Patient will improve strength/tolerance for activity to enable patient to perform ADL's. OT Skilled Nursing Goals Skilled Nursing Goals Time Frame: Feb 20, 2017 Eating (FIM): 6 Eating (QC): 6 Groomin Oral Hygiene (QC): 5 Bathing(FIM): 5 Shower/Bathe Self (QC): 5 Upper Body Dressing(FIM): 6 Upper Body Dressing (QC): 5 Lower Body Dressing(FIM): 5 Lower Body Dressing (QC): 5 On/Off Footwear (QC): 5 Toileting(FIM): 6 Toileting Hygiene (QC): 6 Transfers (B,C,W/C) (FIM): 6 Toilet/Commode Transfer(FIM): 6 Toilet/Commode Transfer (QC): 6 Shower Transfer(FIM): 5 Additional Goals: 1-Demonstrate ADL Tasks, 2-Verbalize Understanding, 3- ImproveStrength/Priya 1=Demonstrate adherence to instructed precautions during ADL tasks. 2=Patient will verbalize/demonstrate understanding of assistive devices/ modifications for ADL. 3=Patient will improve strength/tolerance for activity to enable patient to perform ADL's. OT Education/Plan Discharge Recommendations Plan/Recommendations: Continue POC Treatment Plan/Plan of Care Patient would benefit from OT for education, treatment and training to promote independence in ADL's, mobility, safety and/or upper extremity function for ADL' s. Plan of Care: ADL Retraining, Functional Mobility, UE Funct Exercise/Act Treatment Duration: Feb 20, 2017 Frequency: At least 5 of 7 days/Wk (IRF) Estimated Hrs Per Day: 1.5 hours per day Agreement: Yes Rehab Potential: Good Time/GCodes Start Time: 10:30 Stop Time: 11:00 Total Time Billed (hr/min): 30 Billed Treatment Time 1 visit, EXx2(30minutes) BROCK MOTT OT Feb 10, 2017 11:58
--- NOTE | 2017-02-10 13:37 | Progress Note-Cardiology ---
Cardiology SOAP Progress Note Subjective: No cp or palp or syncope. Some gen malaise Objective: I&O/Vital Signs Vital Sign - Last 12Hours 02/10/17 02/10/17 05:00 09:00 Temp 99.4 Pulse 96 Resp 20 B/P (MAP) 125/77 (93) Pulse Ox 97 O2 Delivery Room Air Room Air Intake and Output 02/10/17 00:00 Intake Total 1510 ml Balance 1510 ml Weight (Pounds): 133 Weight (Ounces): 0.0 Weight (Calculated Kilograms): 60.041015 Constitutional: AAO x 3, well-developed, well-nourished, other (thin-appearing) Respiratory: No accessory muscle use, other (good bilat air entry) Cardiovascular: regular rate-rhythm, S1 and S2, systolic murmur (3/6 MSM) Gastrointestional: No tender, soft, No guarding, audible bowel sounds Extremities: No clubbing, No cyanosis, No significant edema Neurologic/Psychiatric: oriented x 3, grossly intact, power is 5/5 both on sides Skin: No rash on exposed areas, No ulcerations on exposed areas A/P: Assessment: Bipolar R hemiarthroplasty on 02/04/17 for R hip fracture due a nonsyncopal fall Worsening anemia post-op, being managed by the [facility] (Dr Mcintosh) Mild thrombocytopenia post-op, stable Severe aortic stenosis. Echo of shows aortic valve area 0.8 sq cm, LVEF 55-60%, PASP 35 mmHg and grade I diastolic dysfunction of the LV No significant CAD on card cath of 2012 H/o GERD Plan: * Continue current regimen * Repeat labs LAYLA ELLISON MD FACP FAC CCDS Feb 10, 2017 13:37
--- NOTE | 2017-02-10 14:01 | Physical Therapy Daily Note ---
PT Daily Note-Current Subjective Patient in recliner pre tx, agrees to PT, has pain of 3/10 in right leg. Appearance Patient in bed post tx with nurse call, phone, tray, all needs met. Mental Status Patient Orientation: Normal For Age Transfers Functional [place] Measure 0=Not Assessed/NA 4=Minimal Assistance 1=Total Assistance 5=Supervision or Setup 2=Maximal Assistance 6=Modified [place] 3=Moderate Assistance 7=Complete IndependenceIRFPAI Quality Coding Scale 6 Independent with activity with or without an assistive device 5 Patient requires set up or clean up by helper. Patient completes activity by themselves 4 Supervision or touching assist (CGA). [place] provide cues , steadying assist 3 The helper provides less than half the effort to complete the activity 2 The helper provides more than half the effort to complete the activity 1 Dependent. The helper does all the effort to complete an activity 7 Patient refused to complete or attempt activity 9 The patient did not perform the activity before the current illness or injury 88 Not attempted due to Medical conditions or safety concerns Transfers (B, C, W/C) (FIM): 4 Scootin Rollin Supine to/from Sit: 4 Sit to/from Stand: 5 Patient needs min assist to get right leg into bed, cues for hand placement and safety. Weight Bearing Right Lower Extremity: Right Weight Bearing/Tolerated Left Lower Extremity: Left Full Weight Bearing Gait Training Gait (FIM): 2 Distance: 100'x2 Gait Level of Assist: 5 Gait Persons Needed: 1 Gait Assistive Device: FWW slow, antalgic, patient slides her toes across the floor when stepping usually but occasionally does clear her foot. Stair Training Stairs (FIM): 2 #of Steps: 4 Stairs: Pattern: Step to Level of Assist: 4 CGA, cues for foot placement and safety Treatments bed mobility and transfers, ambulation, stair training Assessment Current Status: Fair Progress Patient is improving with ambulation and has performed stairs yet. PT Short Term Goals Short Term Goals Time Frame: Feb 13, 2017 Transfers (B,C,W/C) (FIM): 5 Gait (FIM): 2 Gait Distance Comment: 50' Gait Level of Assist: 4 Gait Assistive Device: FWW Wheelchair Distance: 50' PT Curriculum Assistant Goals Curriculum Assistant Goals PT [facility] Goals Time Frame: Feb 27, 2017 Transfers (B,C,W/C) (FIM): 6 Sit to Lying (QC): 6 Lying-Sitting on Side/Bed(QC): 6 Sit to Stand (QC): 6 Rollin Roll Left to Right (QC): 6 Chair/Pwa-sq-Wjzpg Xfer(QC): 6 Car Transfer (QC): 4 Gait (FIM): 5 Distance: 150' Walk 10 feet (QC): 4 Walk 10ft-Uneven Surface(QC): 4 Walk 50ft with 2 Turns (QC): 4 Walk 150 ft (QC): 4 Gait Level of Assist: 5 Gait Assistive Device: FWW Stairs (FIM): 2 # of Steps: 4 1 Step (curb) (QC): 4 4 Steps (QC): 4 Stairs Level Of Assist: 4 PT Plan Problem List Problem List: Activity Tolerance, Functional Strength, Safety, Balance, Gait, Transfer, Bed Mobility, ROM Treatment/Plan Treatment Plan: Continue Plan of Care Treatment Plan: Bed Mobility, Education, Functional Activity Priya, Functional Strength, Group Therapy, Gait, Safety, Therapeutic Exercise, Transfers Treatment Duration: Feb 27, 2017 Frequency: At least 5 of 7 days/Wk (IRF) Estimated Hrs Per Day: 1.5 hours per day Patient and/or Family Agrees t: Yes Safety Risks/Education Patient Education: Gait Training, Transfer Techniques, Steps, Correct Positioning, Safety Issues Teaching Recipient: Patient Teaching Methods: Demonstration, Discussion Response to Teaching: Reinforcement Needed Time/GCodes Time In: 1300 Time Out: 1400 Total Billed Treatment Time: 30 Total Billed Treatment 1 visit GT 30' ANNAMARIA GARCIA PT Feb 10, 2017 14:01
[2017-02-10] MEDS: CATHETER FLUSH 10 ML SYR IV PRN (14:46)
[2017-02-10] MEDS: RIVAROXABAN 10 MG TABLET (XARELTO) PO SCH (17:09)
[2017-02-10 17:16] VITALS: BP 123/60
[2017-02-10] MEDS: POLYETHYLENE GLYCOL 17 GM (MIRALAX) PACK PO SCH (20:46)
[2017-02-10] MEDS: rOPINIRole 1 MG (REQUIP) TABLET PO SCH (21:33)
[2017-02-11 05:13] LABS: BASOPHILS % (AUTO) 1 % (0-10); EOSINOPHILS # (AUTO) 0.2 10^3/uL (0.0-0.3); EOSINOPHILS % (AUTO) 2 % (0-10); HEMATOCRIT 27 % (35-52); HEMOGLOBIN 8.6 G/DL (11.5-16.0); LYMPHOCYTES # (AUTO) 1.8 X 10^3 (1.0-4.0); LYMPHOCYTES % (AUTO) 22 % (12-44); MEAN CORPUSCULAR HEMOGLOBIN 33 PG (25-34); MEAN CORPUSCULAR HGB CONC 32 G/DL (32-36); MEAN CORPUSCULAR VOLUME 102 FL (80-99); MEAN PLATELET VOLUME 9.7 FL (7.4-10.4); MONOCYTES # (AUTO) 0.8 X 10^3 (0.0-1.0); MONOCYTES % (AUTO) 10 % (0-12); NEUTROPHILS # (AUTO) 5.5 X 10^3 (1.8-7.8); NEUTROPHILS % (AUTO) 65 % (42-75); PLATELET COUNT 243 10^3/uL (130-400); RED BLOOD COUNT 2.64 10^6/uL (4.35-5.85); RED CELL DISTRIBUTION WIDTH 15.1 % (10.0-14.5); WHITE BLOOD COUNT 8.3 10^3/uL (4.3-11.0)
[2017-02-11 05:32] LABS: BUN/CREATININE RATIO 22; CALCIUM 8.4 MG/DL (8.5-10.1); CARBON DIOXIDE 26 MMOL/L (21-32); CHLORIDE 104 MMOL/L (98-107); CREATININE SERUM 0.58 MG/DL (0.60-1.30); GFR ESTIMATED > 60; GLUCOSE 132 MG/DL (70-105); MAGNESIUM 1.7 MG/DL (1.8-2.4); POTASSIUM 3.8 MMOL/L (3.6-5.0); SODIUM 139 MMOL/L (135-145)
[2017-02-11 06:05] VITALS: BP 115/65
[2017-02-11] MEDS: MULTIVIT W/MINERALS TAB (THERAGRAN M) PO SCH (06:21)
[2017-02-11] MEDS: CALCIUM CARB + VIT D 600 MG (CALCARB + D) TAB PO SCH (06:21)
[2017-02-11] MEDS: PANTOPRAZOLE 20 MG TABLET (PROTONIX) PO SCH ×2 (06:21→22:02)
--- NOTE | 2017-02-11 06:52 | Physician Query Clarification ---
PQ-Further Specificity Admission/Discharge Admission Date: Feb 06, 2017 at 09:20 Discharge Date: The medical record reflects the following clinical scenario: History/Risk Factors: Aortic stenosis, chronic back pain, RLS, shelter use anticoagulant Clinical Findings: 02/04 xray showing displaced subcapital fx rt proximal femur Treatment: Hip replacement Question: Can you further specify rt femur fx per the clinical indicators above ? Please document below. 1. Displaced subcapital fx rt proximal femur 2. rt femur fx NOS 3. Other, with explanation of the clinical findings. 4. Clinically undetermined, no explanation for the clinical findings. PHYSICIAN RESPONSE Can you specify per above: 1 Explanation/Clinical Findings Displaced subcapital Fracture rt Proximal femur In responding to this query, please exercise your independent professional judgment. The purpose of this communication is to more accurately reflect the complexity of your patients condition. The fact that a question is asked does not imply that any particular answer is desired or expected. Thank you for your timely response to this clarification. Requestors name: [ ] Phone # [ ] THIS PHYSICIAN QUERY FORM IS A PERMANENT PART OF THE MEDICAL RECORD MARCELLA MELÉNDEZ Feb 11, 2017 06:52 MARYLOU CYR MD Feb 18, 2017 09:05
[2017-02-11] MEDS: DOCUSATE SODIUM 100 MG (COLACE) CAP PO SCH ×2 (08:09→19:37)
[2017-02-11] MEDS: MAGNESIUM OXIDE (MAG-OX)400 MG TAB PO SCH (08:09)
[2017-02-11] MEDS: LACTULOSE SYRUP 10GM/15ML (ENULOSE) 30ML UDC PO SCH ×2 (08:09→19:38)
--- NOTE | 2017-02-11 08:10 | Progress Note (SOAP) ---
Subjective Time Seen by Provider: 08:05 Subjective/Events-last exam right hip fracture. Aortic stenosis. Patient voices no complaints today. Patient states she is improving. Objective Exam Vital Signs Date Time Temp Pulse Resp B/P (MAP) Pulse Ox O2 Delivery O2 Flow Rate FiO2 02/11/17 06:05 98.8 86 17 115/65 (82) 94 Room Air 02/10/17 21:00 Room Air 02/10/17 19:02 Room Air 02/10/17 17:16 99.8 91 17 123/60 (81) 99 Room Air 02/10/17 09:00 Room Air I & O 02/11/17 07:00 Intake Total 1220 ml Balance 1220 ml Capillary Refill : General Appearance: No Apparent Distress, WD/WN HEENT: Normal ENT Inspection Neck: Normal Inspection Respiratory: Lungs Clear, No Accessory Muscle Use, No Respiratory Distress Results Lab Laboratory Tests 02/11/17 05:05: White Blood Count 8.3, Red Blood Count 2.64L, Hemoglobin 8.6L, Hematocrit 27L, Mean Corpuscular Volume 102H, Mean Corpuscular Hemoglobin 33, Mean Corpuscular Hemoglobin Concent 32, Red Cell Distribution Width 15.1H, Platelet Count 243, Mean Platelet Volume 9.7, Neutrophils (%) (Auto) 65, Lymphocytes (%) (Auto) 22, Monocytes (%) (Auto) 10, Eosinophils (%) (Auto) 2, Basophils (%) (Auto) 1, Neutrophils # (Auto) 5.5, Lymphocytes # (Auto) 1.8, Monocytes # (Auto) 0.8, Eosinophils # (Auto) 0.2, Basophils # (Auto) 0.0, Sodium Level 139, Potassium Level 3.8, Chloride Level 104, Carbon Dioxide Level 26, Anion Gap 9, Blood Urea Nitrogen 13, Creatinine 0.58L, Estimat Glomerular Filtration Rate > 60, BUN/ Creatinine Ratio 22, Glucose Level 132H, Calcium Level 8.4L, Magnesium Level 1.7L Assessment/Plan Assessment/Plan Assess & Plan/Chief Complaint right hip fracture. aortic stenosis. Patient feel she is improving Clinical Quality Measures DVT/VTE Risk/Contraindication: Risk Factor Score Per Nursin RFS Level Per Nursing on Admit: 4+=Very High DEVONTE MULTANI DO Feb 11, 2017 08:10
--- NOTE | 2017-02-11 09:22 | Progress Note-Cardiology ---
Cardiology SOAP Progress Note Subjective: Sitting up in a chair a the bedside. No c/o CP, dyspnea, palpitations, syncope or near syncope. C/O some swelling in the right leg. Objective: I&O/Vital Signs Vital Sign - Last 12Hours 02/11/17 02/11/17 06:05 09:00 Temp 98.8 Pulse 86 Resp 17 B/P (MAP) 115/65 (82) Pulse Ox 94 O2 Delivery Room Air Room Air Intake and Output 02/11/17 00:00 Intake Total 970 ml Balance 970 ml Weight (Pounds): 133 Weight (Ounces): 0.0 Weight (Calculated Kilograms): 60.402154 Constitutional: AAO x 3, well-developed, well-nourished, other (thin-appearing) Respiratory: No accessory muscle use, other (good bilat air entry) Cardiovascular: regular rate-rhythm, S1 and S2, systolic murmur (3/6 MSM) Gastrointestional: No tender, soft, No guarding, audible bowel sounds Extremities: No clubbing, No cyanosis, significant edema (mild edema RLE (post surgical side)) Neurologic/Psychiatric: oriented x 3, grossly intact, power is 5/5 both on sides Skin: No rash on exposed areas, No ulcerations on exposed areas Results/Procedures: Labs Laboratory Tests 02/11/17 05:05: White Blood Count 8.3, Red Blood Count 2.64L, Hemoglobin 8.6L, Hematocrit 27L, Mean Corpuscular Volume 102H, Mean Corpuscular Hemoglobin 33, Mean Corpuscular Hemoglobin Concent 32, Red Cell Distribution Width 15.1H, Platelet Count 243, Mean Platelet Volume 9.7, Neutrophils (%) (Auto) 65, Lymphocytes (%) (Auto) 22, Monocytes (%) (Auto) 10, Eosinophils (%) (Auto) 2, Basophils (%) (Auto) 1, Neutrophils # (Auto) 5.5, Lymphocytes # (Auto) 1.8, Monocytes # (Auto) 0.8, Eosinophils # (Auto) 0.2, Basophils # (Auto) 0.0, Sodium Level 139, Potassium Level 3.8, Chloride Level 104, Carbon Dioxide Level 26, Anion Gap 9, Blood Urea Nitrogen 13, Creatinine 0.58L, Estimat Glomerular Filtration Rate > 60, BUN/ Creatinine Ratio 22, Glucose Level 132H, Calcium Level 8.4L, Magnesium Level 1.7L Laboratory Tests 02/11/17 05:05 A/P: Assessment: Bipolar R hemiarthroplasty on 02/04/17 for R hip fracture due a nonsyncopal fall Anemia post-op, stable (gradually improving) Mild thrombocytopenia post-op, resolved Severe aortic stenosis. Echo of shows aortic valve area 0.8 sq cm, LVEF 55-60%, PASP 35 mmHg and grade I diastolic dysfunction of the LV No significant CAD on card cath of 2012 H/o GERD Plan: * Continue current regimen * Monitor lab * Receiving iron infusions * Anemia management per medical services Physician Assessment Physician Assessment Notes some gen malaise and tiredness. Denies cp or palp or syncope or shortness of breath Lungs: good air entry Cor: reg Ext: no c/c/e A&R * As documented in our note above that I updated (italics) and as noted below * I reviewed her labs and discussed her CV issues and our treatment strategy CINDY BLACKWOOD PARKING ENFORCEMENT MANAGER Feb 11, 2017 09:22 LAYLA ELLISON MD FACP [facility] Feb 11, 2017 13:11
--- NOTE | 2017-02-11 09:27 | Occupational Ther Daily Note ---
OT Current Status-Daily Note Subjective Pt alert, lying in bed. Pt agreed to therapy. No c/o pain at this time. Mental Status/Objective Patient Orientation: Person, Place, Time, Situation Functional [place] Measure 0=Not Assessed/NA 4=Minimal Assistance 1=Total Assistance 5=Supervision or Setup 2=Maximal Assistance 6=Modified [place] 3=Moderate Assistance 7=Complete [place] Attachments: IV ADL-Treatment Functional [place] Measure 0=Not Assessed/NA 4=Minimal Assistance 1=Total Assistance 5=Supervision or Setup 2=Maximal Assistance 6=Modified [place] 3=Moderate Assistance 7=Complete IndependenceIRFPAI Quality Coding Scale 6 Independent with activity with or without an assistive device 5 Patient requires set up or clean up by helper. Patient completes activity by themselves 4 Supervision or touching assist (CGA). [place] provide cues , steadying assist 3 The helper provides less than half the effort to complete the activity 2 The helper provides more than half the effort to complete the activity 1 Dependent. The helper does all the effort to complete an activity 7 Patient refused to complete or attempt activity 9 The patient did not perform the activity before the current illness or injury 88 Not attempted due to Medical conditions or safety concerns Grooming (FIM): 6 (Pt sitting at sink and completing grooming by self.) Oral Hygiene (QC): 6 Bathing (FIM): 5 (Using grabbar, hand held shower, long handle sponge and shower bench pt able to complete all bathing with SBA.) Bathing Location: L Arm, R Arm, L Upper Leg, R Upper Leg, L Lower Leg ( including foot), R Lower Leg (including foot), Chest, Abdomen, Buttocks, Perineal Area Shower/Bathe Self (QC): 4 Upper Body (FIM): 5 (After set up, pt able to complete by self.) Upper Body Dressing (QC): 5 Lower Body Dressing (FIM): 4 (Using AE to don clothing over feet pt requires CGA in standing to hike pants over hips.) Lower Body Dressing (QC): 4 On/Off Footwear (QC): 4 Toileting (FIM): 4 (CGA using FWW and grabbars to complete hygiene and manipulation of clothing.) Toileting Hygiene (QC): 4 Transfers (B, C, W/C) (FIM): 4 (CGA using FWW for transfers.) Toilet/Commode Transfer (FIM): 4 (Using grabbars and FWW, pt able to complete transfer.) Toilet Transfer (QC): 4 Shower Transfer(FIM): 4 (Using grabbars, shower bench and FWW, pt able to complete transfer.) After bathing, dressing and grooming pt sitting in w/c ordering breakfast. Nrsg in room. Call light/phone in reach. All needs met in room. Education OT Patient Education: Modified ADL techniques, Use of adapted equipment Teaching Recipient: Patient Teaching Methods: Demonstration, Handout, Discussion Response to Teaching: Verbalize Understanding, Return Demonstration OT Short Term Goals Short Term Goals Time Frame: Feb 13, 2017 Eating(FIM): 5 Grooming(FIM): 5 Bathing(FIM): 4 Upper Body Dressing(FIM): 5 Lower Body Dressing(FIM): 4 Toileting(FIM): 5 Transfers (B,C,W/C) (FIM): 5 Toilet/Commode Transfer(FIM): 5 Shower Transfer(FIM): 4 Additional Short Term Goals: 1-Demonstrate ADL Tasks, 2-Verbalize Understanding , 3-ImproveStrength/Priya 1=Demonstrate adherence to instructed precautions during ADL tasks. 2=Patient will verbalize/demonstrate understanding of assistive devices/ modifications for ADL. 3=Patient will improve strength/tolerance for activity to enable patient to perform ADL's. OT Residential Goals Residential Goals Time Frame: Feb 20, 2017 Eating (FIM): 6 Eating (QC): 6 Groomin Oral Hygiene (QC): 5 Bathing(FIM): 5 Shower/Bathe Self (QC): 5 Upper Body Dressing(FIM): 6 Upper Body Dressing (QC): 5 Lower Body Dressing(FIM): 5 Lower Body Dressing (QC): 5 On/Off Footwear (QC): 5 Toileting(FIM): 6 Toileting Hygiene (QC): 6 Transfers (B,C,W/C) (FIM): 6 Toilet/Commode Transfer(FIM): 6 Toilet/Commode Transfer (QC): 6 Shower Transfer(FIM): 5 Additional Goals: 1-Demonstrate ADL Tasks, 2-Verbalize Understanding, 3- ImproveStrength/Priya 1=Demonstrate adherence to instructed precautions during ADL tasks. 2=Patient will verbalize/demonstrate understanding of assistive devices/ modifications for ADL. 3=Patient will improve strength/tolerance for activity to enable patient to perform ADL's. OT Education/Plan Discharge Recommendations Plan/Recommendations: Continue POC Treatment Plan/Plan of Care Patient would benefit from OT for education, treatment and training to promote independence in ADL's, mobility, safety and/or upper extremity function for ADL' s. Plan of Care: ADL Retraining, Functional Mobility, UE Funct Exercise/Act Treatment Duration: Feb 20, 2017 Frequency: At least 5 of 7 days/Wk (IRF) Estimated Hrs Per Day: 1.5 hours per day Agreement: Yes Rehab Potential: Good Time/GCodes Start Time: 07:00 Stop Time: 08:00 Total Time Billed (hr/min): 60 Billed Treatment Time 1 visit-ADL 4 (60 min) KEITH GRANADOS Feb 11, 2017 09:27
[2017-02-11] MEDS: HYDROcodone/APAP 10 MG/325 MG (LORTAB) TAB PO PRN (09:57)
--- NOTE | 2017-02-11 10:44 | Physical Therapy Daily Note ---
PT Daily Note-Current Subjective Pt sitting in [facility] in room upon arrival. Pt agrees to PT. Pain Numeric Pain Scale: 4 Location: Left Location Body Site: Hip Pain Description: Ache, Tightness Mental Status Patient Orientation: Person, Place, Time, Situation Transfers Functional [place] Measure 0=Not Assessed/NA 4=Minimal Assistance 1=Total Assistance 5=Supervision or Setup 2=Maximal Assistance 6=Modified [place] 3=Moderate Assistance 7=Complete IndependenceIRFPAI Quality Coding Scale 6 Independent with activity with or without an assistive device 5 Patient requires set up or clean up by helper. Patient completes activity by themselves 4 Supervision or touching assist ([facility]). [place] provide cues , steadying assist 3 The helper provides less than half the effort to complete the activity 2 The helper provides more than half the effort to complete the activity 1 Dependent. The helper does all the effort to complete an activity 7 Patient refused to complete or attempt activity 9 The patient did not perform the activity before the current illness or injury 88 Not attempted due to Medical conditions or safety concerns Scootin Sit to/from Stand: 4 Sit to Stand (QC): 4 Weight Bearing Right Lower Extremity: Right Weight Bearing/Tolerated Left Lower Extremity: Left Full Weight Bearing Gait Training Does the Patient Walk?: Yes Distance (FIM): 5=383-42 ft Distance: 100' Walk 10 feet (QC): 4 Walk 50 ft with 2 Turns(QC): 4 Gait Level of Assist: 4 Gait Persons Needed: 1 Gait Assistive Device: FWW Pt walks with slow and antalgic gait. Pt reports tightness in R hip that radiates to knee. Wheelchair Training Does the Pt Use a Wheelchair?: Yes Wheelchair Distance: 6=266-63 ft Distance: 100' Wheelchair Level of Assist: 5 Wheel 50 ft with 2 turns (QC): 5 Type of Wheelchair: Manual Exercises Seated Therapy Exercises: Ankle pumps, Long arc quads, Hip flexion, Kicking activity Seated Reps: 20 NuStep Minutes: 15 NuStep Workload: 5 Treatments Pt propels [facility] to Therapy Gym at [facility]. Pt transfers from [facility] to [facility] via SPT at [facility]. Pt uses NuStep for 15m at Workload 5. Pt then transfers back to [facility] via SPT. Pt completes Seated Ex in [facility]. Pt takes short rest then transfers to standing using FWW at [facility]. Pt ambulates from Gym to room using FWW at [facility] for safety. Pt transfers to sitting in recliner at end of tx with all needs met. Assessment Current Status: Good Progress Pt is making progress with strength and independence & safety of tasks although still reporting pain. PT Short Term Goals Short Term Goals Time Frame: Feb 13, 2017 Transfers (B,C,W/C) (FIM): 5 Gait (FIM): 2 Gait Distance Comment: 50' Gait Level of Assist: 4 Gait Assistive Device: FWW Wheelchair Distance: 50' PT Environmental Intern Goals Environmental Intern Goals PT Skilled Nursing Goals Time Frame: Feb 27, 2017 Transfers (B,C,W/C) (FIM): 6 Sit to Lying (QC): 6 Lying-Sitting on Side/Bed(QC): 6 Sit to Stand (QC): 6 Rollin Roll Left to Right (QC): 6 Chair/Xqz-ka-Agkwt Xfer(QC): 6 Car Transfer (QC): 4 Gait (FIM): 5 Distance: 150' Walk 10 feet (QC): 4 Walk 10ft-Uneven Surface(QC): 4 Walk 50ft with 2 Turns (QC): 4 Walk 150 ft (QC): 4 Gait Level of Assist: 5 Gait Assistive Device: FWW Stairs (FIM): 2 # of Steps: 4 1 Step (curb) (QC): 4 4 Steps (QC): 4 Stairs Level Of Assist: 4 PT Plan Problem List Problem List: Activity Tolerance, Functional Strength, Safety, Balance, Gait, Transfer Treatment/Plan Treatment Plan: Continue Plan of Care Treatment Plan: Bed Mobility, Education, Functional Activity Priya, Functional Strength, Group Therapy, Gait, Safety, Therapeutic Exercise, Transfers Treatment Duration: Feb 27, 2017 Frequency: At least 5 of 7 days/Wk (IRF) Estimated Hrs Per Day: 1.5 hours per day Patient and/or Family Agrees t: Yes Safety Risks/Education Patient Education: Gait Training, Transfer Techniques, Correct Positioning, Safety Issues Teaching Recipient: Patient Teaching Methods: Discussion Response to Teaching: Verbalize Understanding Time/GCodes Time In: 900 Time Out: 1000 Total Billed Treatment Time: 60 Total Billed Treatment 1, EX x2 (30m),WCH (15m) & GT (15m) ERIN MARLEY STUDENT WORKER Feb 11, 2017 10:44
--- NOTE | 2017-02-11 11:25 | Progress Note-Hospitalist ---
Progress Note Progress Notes/Assess & Plan Date Seen 02/11/17 Time Seen by Provider: 10:40 Diagonsis/Assessment & Plan Patient feeling better Iron infusions tolerated well + BM AFVSS, pleasant, appears improved RRR w/murmur no changes CTAB No edema Assessment: Acute right femur fracture sustained in fall at home s/p repair uncomplicated History of moderate aortic stenosis in 2012 was in process of referral to Dr. Brizuela so stat echo ordered and Dr. Brizuela has seen in consultation but stable Restless leg syndrome Irritable bowel syndrome constipation predominant with post op constipation continues so increasing meds today Post operative anemia due to acute blood loss hgb 8.0 on Venofer Thrombocytopenia source unknown monitor closely Plan: BM regimen Venofer Improve diet consumption DUNG KEYS DO Feb 11, 2017 11:25
--- NOTE | 2017-02-11 11:35 | Occupational Ther Daily Note ---
OT Current Status-Daily Note Subjective Pt. states that she is feeling "much better." Appearance Pt. up in chair. Agrees to work with OT this morning. Mental Status/Objective Patient Orientation: Person, Place, Time, Situation Functional [place] Measure 0=Not Assessed/NA 4=Minimal Assistance 1=Total Assistance 5=Supervision or Setup 2=Maximal Assistance 6=Modified [place] 3=Moderate Assistance 7=Complete [place] ADL-Treatment Functional [place] Measure 0=Not Assessed/NA 4=Minimal Assistance 1=Total Assistance 5=Supervision or Setup 2=Maximal Assistance 6=Modified [place] 3=Moderate Assistance 7=Complete IndependenceIRFPAI Quality Coding Scale 6 Independent with activity with or without an assistive device 5 Patient requires set up or clean up by helper. Patient completes activity by themselves 4 Supervision or touching assist (CGA). [place] provide cues , steadying assist 3 The helper provides less than half the effort to complete the activity 2 The helper provides more than half the effort to complete the activity 1 Dependent. The helper does all the effort to complete an activity 7 Patient refused to complete or attempt activity 9 The patient did not perform the activity before the current illness or injury 88 Not attempted due to Medical conditions or safety concerns Transfers (B, C, W/C) (FIM): 5 (SBA to ambulate to therapy gym with walker.) Other Treatment Pt. agrees to ambulate to therapy gym. Completed ambulation task with SBA using walker. Pt. completed armbike x 15 minutes for increased overall strengthening and endurance with daily tasks. Pt. ambulated back to room with increased time needed. All needs met. Education OT Patient Education: Correct positioning, Energy conservation, Modified ADL techniques, Progress toward Goal/Update tx plan, Purpose of tx/functional activities, Reviewed precautions, Rehab process, Transfer techniques Teaching Recipient: Patient Teaching Methods: Demonstration, Discussion Response to Teaching: Verbalize Understanding, Return Demonstration OT Short Term Goals Short Term Goals Time Frame: Feb 13, 2017 Eating(FIM): 5 Grooming(FIM): 5 Bathing(FIM): 4 Upper Body Dressing(FIM): 5 Lower Body Dressing(FIM): 4 Toileting(FIM): 5 Transfers (B,C,W/C) (FIM): 5 Toilet/Commode Transfer(FIM): 5 Shower Transfer(FIM): 4 Additional Short Term Goals: 1-Demonstrate ADL Tasks, 2-Verbalize Understanding , 3-ImproveStrength/Priya 1=Demonstrate adherence to instructed precautions during ADL tasks. 2=Patient will verbalize/demonstrate understanding of assistive devices/ modifications for ADL. 3=Patient will improve strength/tolerance for activity to enable patient to perform ADL's. OT Skilled Nursing Goals Skilled Nursing Goals Time Frame: Feb 20, 2017 Eating (FIM): 6 Eating (QC): 6 Groomin Oral Hygiene (QC): 5 Bathing(FIM): 5 Shower/Bathe Self (QC): 5 Upper Body Dressing(FIM): 6 Upper Body Dressing (QC): 5 Lower Body Dressing(FIM): 5 Lower Body Dressing (QC): 5 On/Off Footwear (QC): 5 Toileting(FIM): 6 Toileting Hygiene (QC): 6 Transfers (B,C,W/C) (FIM): 6 Toilet/Commode Transfer(FIM): 6 Toilet/Commode Transfer (QC): 6 Shower Transfer(FIM): 5 Additional Goals: 1-Demonstrate ADL Tasks, 2-Verbalize Understanding, 3- ImproveStrength/Priya 1=Demonstrate adherence to instructed precautions during ADL tasks. 2=Patient will verbalize/demonstrate understanding of assistive devices/ modifications for ADL. 3=Patient will improve strength/tolerance for activity to enable patient to perform ADL's. OT Education/Plan Problem List/Assessment Assessment: Decreased Activ Tolerance, Impaired I ADL's, Impaired Self-Care Skills Discharge Recommendations Plan/Recommendations: Continue POC Therapy D/C Recommendations: Home w/ Family Support, Occupational Therapy Home Care Equpiment Recommendations-D/C: Hip Kit Treatment Plan/Plan of Care Treatment,Training & Education: Yes Patient would benefit from OT for education, treatment and training to promote independence in ADL's, mobility, safety and/or upper extremity function for ADL' s. Plan of Care: ADL Retraining, Functional Mobility, UE Funct Exercise/Act Treatment Duration: Feb 20, 2017 Frequency: At least 5 of 7 days/Wk (IRF) Estimated Hrs Per Day: 1.5 hours per day Agreement: Yes Rehab Potential: Good Time/GCodes Start Time: 10:30 Stop Time: 11:00 Total Time Billed (hr/min): 30 Billed Treatment Time 1, EX x 2 JOHN MARRERO OT Feb 11, 2017 11:35
[2017-02-11] MEDS: IRON SUCROSE INJECTION 200 MG in NS (IVPB) 100 ML IV SCH (11:50)
--- NOTE | 2017-02-11 14:01 | Physical Therapy Daily Note ---
PT Daily Note-Current Subjective Pt sitting in recliner visiting with family upon arrival. Pt agrees to PT. Pain Numeric Pain Scale: 3 Location: Right Location Body Site: Hip Pain Description: Ache, Tightness Mental Status Patient Orientation: Person, Place, Time, Situation Transfers Functional [place] Measure 0=Not Assessed/NA 4=Minimal Assistance 1=Total Assistance 5=Supervision or Setup 2=Maximal Assistance 6=Modified [place] 3=Moderate Assistance 7=Complete IndependenceIRFPAI Quality Coding Scale 6 Independent with activity with or without an assistive device 5 Patient requires set up or clean up by helper. Patient completes activity by themselves 4 Supervision or touching assist (CGA). [place] provide cues , steadying assist 3 The helper provides less than half the effort to complete the activity 2 The helper provides more than half the effort to complete the activity 1 Dependent. The helper does all the effort to complete an activity 7 Patient refused to complete or attempt activity 9 The patient did not perform the activity before the current illness or injury 88 Not attempted due to Medical conditions or safety concerns Scootin Sit to/from Stand: 5 Sit to Stand (QC): 5 Weight Bearing Right Lower Extremity: Right Weight Bearing/Tolerated Left Lower Extremity: Left Full Weight Bearing Gait Training Does the Patient Walk?: Yes Distance (FIM): 3=150 ft Distance: 150' Walk 10 feet (QC): 5 Walk 50 ft with 2 Turns(QC): 5 Walk 150 ft (QC): 5 Gait Level of Assist: 5 Gait Persons Needed: 1 Gait Assistive Device: FWW Pt walks with a slow kirsten and slightly antalgic gait (although less pronounced then morning tx). Pt had received pain med. Stair Training #of Steps: 4 1 Step (curb) (QC): 4 4 Steps (QC): 4 Stairs: Pattern: Step to Level of Assist: 4 Treatments Pt transfers from recliner to standing using FWW at SBA. Pt ambulates to restroom using FWW at [facility]. After finishing, pt ambulates to Therapy Gym using FWW at [facility]. Pt completes 1 set of stairs at [facility]. Pt takes short rest before ambulating back to room. Pt transfers back to recliner to rest. Pt & AUDIOVISUAL PRODUCTION SPECIALIST discuss pt's question of how Weekly Mtg processes and when pt might discharge. Assessment Current Status: Good Progress Pt is improving with independence and safety of transfers and mobility. PT Short Term Goals Short Term Goals Time Frame: Feb 13, 2017 Transfers (B,C,W/C) (FIM): 5 Gait (FIM): 2 Gait Distance Comment: 50' Gait Level of Assist: 4 Gait Assistive Device: FWW Wheelchair Distance: 100' PT Safe And Vault Installer Goals Fpc Goals PT Fpc Goals Time Frame: Feb 27, 2017 Transfers (B,C,W/C) (FIM): 6 Sit to Lying (QC): 6 Lying-Sitting on Side/Bed(QC): 6 Sit to Stand (QC): 6 Rollin Roll Left to Right (QC): 6 Chair/Cps-io-Arhyn Xfer(QC): 6 Car Transfer (QC): 4 Gait (FIM): 5 Distance: 150' Walk 10 feet (QC): 4 Walk 10ft-Uneven Surface(QC): 4 Walk 50ft with 2 Turns (QC): 4 Walk 150 ft (QC): 4 Gait Level of Assist: 5 Gait Assistive Device: FWW Stairs (FIM): 2 # of Steps: 4 1 Step (curb) (QC): 4 4 Steps (QC): 4 Stairs Level Of Assist: 4 PT Plan Problem List Problem List: Activity Tolerance, Functional Strength, Gait Treatment/Plan Treatment Plan: Continue Plan of Care Treatment Plan: Bed Mobility, Education, Functional Activity Priya, Functional Strength, Group Therapy, Gait, Safety, Therapeutic Exercise, Transfers Treatment Duration: Feb 27, 2017 Frequency: At least 5 of 7 days/Wk (IRF) Estimated Hrs Per Day: 1.5 hours per day Patient and/or Family Agrees t: Yes Safety Risks/Education Patient Education: Gait Training, Steps, Correct Positioning, Safety Issues Teaching Recipient: Patient Teaching Methods: Discussion Response to Teaching: Verbalize Understanding Time/GCodes Time In: 1300 Time Out: 1345 Total Billed Treatment Time: 45 Total Billed Treatment 1, GT (20m) & FA x2 (25m) ERIN MARLEY PTA Feb 11, 2017 14:00
[2017-02-11] MEDS: RIVAROXABAN 10 MG TABLET (XARELTO) PO SCH (17:08)
[2017-02-11 18:16] VITALS: BP 110/70
[2017-02-11] MEDS: POLYETHYLENE GLYCOL 17 GM (MIRALAX) PACK PO SCH (19:38)
[2017-02-11] MEDS: rOPINIRole 1 MG (REQUIP) TABLET PO SCH (22:02)
[2017-02-12] MEDS: MULTIVIT W/MINERALS TAB (THERAGRAN M) PO SCH (06:14)
[2017-02-12] MEDS: CALCIUM CARB + VIT D 600 MG (CALCARB + D) TAB PO SCH (06:14)
[2017-02-12] MEDS: PANTOPRAZOLE 20 MG TABLET (PROTONIX) PO SCH ×2 (06:14→20:25)
[2017-02-12 06:24] VITALS: BP 101/61
[2017-02-12] MEDS: MAGNESIUM OXIDE (MAG-OX)400 MG TAB PO SCH (08:43)
[2017-02-12] MEDS: HYDROcodone/APAP 10 MG/325 MG (LORTAB) TAB PO PRN ×2 (08:43→21:14)
[2017-02-12] MEDS: DOCUSATE SODIUM 100 MG (COLACE) CAP PO SCH ×2 (08:43→19:48)
[2017-02-12] MEDS: LACTULOSE SYRUP 10GM/15ML (ENULOSE) 30ML UDC PO SCH ×2 (08:44→19:48)
--- NOTE | 2017-02-12 08:56 | Physical Therapy Daily Note ---
PT Daily Note-Current Subjective Patient in recliner pre tx, agrees to PT, has 2-3/10 pain in her right leg. Appearance Patient in recliner post tx with nurse call, phone, tray, all needs met. Mental Status Patient Orientation: Normal For Age Transfers Functional [place] Measure 0=Not Assessed/NA 4=Minimal Assistance 1=Total Assistance 5=Supervision or Setup 2=Maximal Assistance 6=Modified [place] 3=Moderate Assistance 7=Complete IndependenceIRFPAI Quality Coding Scale 6 Independent with activity with or without an assistive device 5 Patient requires set up or clean up by helper. Patient completes activity by themselves 4 Supervision or touching assist (CGA). [place] provide cues , steadying assist 3 The helper provides less than half the effort to complete the activity 2 The helper provides more than half the effort to complete the activity 1 Dependent. The helper does all the effort to complete an activity 7 Patient refused to complete or attempt activity 9 The patient did not perform the activity before the current illness or injury 88 Not attempted due to Medical conditions or safety concerns Transfers (B, C, W/C) (FIM): 5 Sit to/from Stand: 5 Weight Bearing Right Lower Extremity: Right Weight Bearing/Tolerated Left Lower Extremity: Left Full Weight Bearing Gait Training Gait (FIM): 5 Distance: 200', 150' Gait Level of Assist: 5 Gait Persons Needed: 1 Gait Assistive Device: FWW Patient still mostly slides her right foot across the floor Exercises Standing: Hamstring curls, Heel/toe raises, 3 way Ex=Flex, Abd, Ext, Mini squats Standing Reps: 15 LAQ right side for 5 min NuStep Minutes: 15 NuStep Workload: 5 Treatments transfers, ambulation, functional strengthening Assessment Current Status: Fair Progress improving endurance and transfers PT Short Term Goals Short Term Goals Time Frame: Feb 13, 2017 Transfers (B,C,W/C) (FIM): 5 Gait (FIM): 2 Gait Distance Comment: 50' Gait Level of Assist: 4 Gait Assistive Device: FWW Wheelchair Distance: 100' PT Systems Accountant Goals Usp Goals PT Usp Goals Time Frame: Feb 27, 2017 Transfers (B,C,W/C) (FIM): 6 Sit to Lying (QC): 6 Lying-Sitting on Side/Bed(QC): 6 Sit to Stand (QC): 6 Rollin Roll Left to Right (QC): 6 Chair/Qzw-gv-Qtmfn Xfer(QC): 6 Car Transfer (QC): 4 Gait (FIM): 5 Distance: 150' Walk 10 feet (QC): 4 Walk 10ft-Uneven Surface(QC): 4 Walk 50ft with 2 Turns (QC): 4 Walk 150 ft (QC): 4 Gait Level of Assist: 5 Gait Assistive Device: FWW Stairs (FIM): 2 # of Steps: 4 1 Step (curb) (QC): 4 4 Steps (QC): 4 Stairs Level Of Assist: 4 PT Plan Problem List Problem List: Activity Tolerance, Functional Strength, Safety, Balance, Gait, Transfer, Bed Mobility, ROM Treatment/Plan Treatment Plan: Continue Plan of Care Treatment Plan: Bed Mobility, Education, Functional Activity Priya, Functional Strength, Group Therapy, Gait, Safety, Therapeutic Exercise, Transfers Treatment Duration: Feb 27, 2017 Frequency: At least 5 of 7 days/Wk (IRF) Estimated Hrs Per Day: 1.5 hours per day Patient and/or Family Agrees t: Yes Safety Risks/Education Patient Education: Gait Training, Transfer Techniques, Correct Positioning, Safety Issues Teaching Recipient: Patient Teaching Methods: Demonstration, Discussion Response to Teaching: Reinforcement Needed Time/GCodes Time In: 800 Time Out: 900 Total Billed Treatment Time: 60 Total Billed Treatment 1 visit EX 30' GT 30' ANNAMARIA GARCIA PT Feb 12, 2017 08:56
--- NOTE | 2017-02-12 09:54 | Occupational Ther Daily Note ---
OT Current Status-Daily Note Subjective Pt alert, sitting in recliner. Pt agreed to therapy. No c/o pain. Did c/o fatigue. Mental Status/Objective Patient Orientation: Person, Place, Time, Situation Functional [place] Measure 0=Not Assessed/NA 4=Minimal Assistance 1=Total Assistance 5=Supervision or Setup 2=Maximal Assistance 6=Modified [place] 3=Moderate Assistance 7=Complete [place] ADL-Treatment Pt requested to change clothing and complete sponge bath. Pt ambulated to bathroom and transferred to toilet using FWW with supervision. Pt then was able to complete toileting with supervision. Pt then transferred to chair to complete dressing and sponge bathing. After set up, pt able to complete all dressing by self. SBA in standing to hike pants over hips. Has compression stockings that require assist to don/doff. Uses sock aide to don socks. Pt sitting in front of sink to complete grooming by self. After therapy, pt sitting in recliner with call light/phone in reach. All needs met in room. Functional [place] Measure 0=Not Assessed/NA 4=Minimal Assistance 1=Total Assistance 5=Supervision or Setup 2=Maximal Assistance 6=Modified [place] 3=Moderate Assistance 7=Complete IndependenceIRFPAI Quality Coding Scale 6 Independent with activity with or without an assistive device 5 Patient requires set up or clean up by helper. Patient completes activity by themselves 4 Supervision or touching assist (CGA). [place] provide cues , steadying assist 3 The helper provides less than half the effort to complete the activity 2 The helper provides more than half the effort to complete the activity 1 Dependent. The helper does all the effort to complete an activity 7 Patient refused to complete or attempt activity 9 The patient did not perform the activity before the current illness or injury 88 Not attempted due to Medical conditions or safety concerns Grooming (FIM): 6 Oral Hygiene (QC): 6 Upper Body (FIM): 5 Upper Body Dressing (QC): 5 Lower Body Dressing (FIM): 5 Lower Body Dressing (QC): 4 On/Off Footwear (QC): 5 Toileting (FIM): 5 Toileting Hygiene (QC): 4 Transfers (B, C, W/C) (FIM): 5 Toilet/Commode Transfer (FIM): 5 Toilet Transfer (QC): 4 OT Short Term Goals Short Term Goals Time Frame: Feb 13, 2017 Eating(FIM): 5 Grooming(FIM): 5 Bathing(FIM): 4 Upper Body Dressing(FIM): 5 Lower Body Dressing(FIM): 4 Toileting(FIM): 5 Transfers (B,C,W/C) (FIM): 5 Toilet/Commode Transfer(FIM): 5 Shower Transfer(FIM): 4 Additional Short Term Goals: 1-Demonstrate ADL Tasks, 2-Verbalize Understanding , 3-ImproveStrength/Priya 1=Demonstrate adherence to instructed precautions during ADL tasks. 2=Patient will verbalize/demonstrate understanding of assistive devices/ modifications for ADL. 3=Patient will improve strength/tolerance for activity to enable patient to perform ADL's. OT Intermediate Goals Intermediate Goals Time Frame: Feb 20, 2017 Eating (FIM): 6 Eating (QC): 6 Groomin Oral Hygiene (QC): 5 Bathing(FIM): 5 Shower/Bathe Self (QC): 5 Upper Body Dressing(FIM): 6 Upper Body Dressing (QC): 5 Lower Body Dressing(FIM): 5 Lower Body Dressing (QC): 5 On/Off Footwear (QC): 5 Toileting(FIM): 6 Toileting Hygiene (QC): 6 Transfers (B,C,W/C) (FIM): 6 Toilet/Commode Transfer(FIM): 6 Toilet/Commode Transfer (QC): 6 Shower Transfer(FIM): 5 Additional Goals: 1-Demonstrate ADL Tasks, 2-Verbalize Understanding, 3- ImproveStrength/Priya 1=Demonstrate adherence to instructed precautions during ADL tasks. 2=Patient will verbalize/demonstrate understanding of assistive devices/ modifications for ADL. 3=Patient will improve strength/tolerance for activity to enable patient to perform ADL's. OT Education/Plan Discharge Recommendations Plan/Recommendations: Continue POC Treatment Plan/Plan of Care Patient would benefit from OT for education, treatment and training to promote independence in ADL's, mobility, safety and/or upper extremity function for ADL' s. Plan of Care: ADL Retraining, Functional Mobility, UE Funct Exercise/Act Treatment Duration: Feb 20, 2017 Frequency: At least 5 of 7 days/Wk (IRF) Estimated Hrs Per Day: 1.5 hours per day Agreement: Yes Rehab Potential: Good Time/GCodes Start Time: 07:00 Stop Time: 08:00 Total Time Billed (hr/min): 60 Billed Treatment Time 1 visit-ADL 4 (60 min) KEITH GRANADOS Feb 12, 2017 09:54
--- NOTE | 2017-02-12 11:00 | Progress Note-Cardiology ---
Cardiology SOAP Progress Note Subjective: Sitting up in chair at the bedside. States she feels good today. No c/o CP, dyspnea, palpitations. Objective: I&O/Vital Signs Vital Sign - Last 12Hours 02/12/17 02/12/17 06:24 07:37 Temp 98.9 Pulse 91 Resp 17 B/P (MAP) 101/61 (74) Pulse Ox 95 O2 Delivery Room Air Room Air Intake and Output 02/12/17 00:00 Intake Total 950 ml Balance 950 ml Weight (Pounds): 133 Weight (Ounces): 0.0 Weight (Calculated Kilograms): [id number] Constitutional: AAO x 3, well-developed, well-nourished, other (thin-appearing) Respiratory: No accessory muscle use, other (good bilat air entry) Cardiovascular: regular rate-rhythm, S1 and S2, systolic murmur (3/6 MSM) Gastrointestional: No tender, soft, No guarding, audible bowel sounds Extremities: No clubbing, No cyanosis, significant edema (mild edema RLE (post surgical side)) Neurologic/Psychiatric: oriented x 3, grossly intact, power is 5/5 both on sides Skin: No rash on exposed areas, No ulcerations on exposed areas A/P: Assessment: Bipolar R hemiarthroplasty on 02/04/17 for R hip fracture due a nonsyncopal fall Anemia post-op, stable (gradually improving) Mild thrombocytopenia post-op, resolved Severe aortic stenosis. Echo of shows aortic valve area 0.8 sq cm, LVEF 55-60%, PASP 35 mmHg and grade I diastolic dysfunction of the LV No significant CAD on card cath of 2012 H/o GERD Plan: * Continue current regimen * Monitor lab * Receiving iron infusions * Anemia management per medical services CINDY BLACKWOOD Feb 12, 2017 11:00
--- NOTE | 2017-02-12 12:56 | Occupational Ther Daily Note ---
OT Current Status-Daily Note Subjective Pt alert, sitting in recliner. Pt agreed to therapy. No c/o pain. Mental Status/Objective Patient Orientation: Person, Place, Time, Situation Functional [place] Measure 0=Not Assessed/NA 4=Minimal Assistance 1=Total Assistance 5=Supervision or Setup 2=Maximal Assistance 6=Modified [place] 3=Moderate Assistance 7=Complete [place] ADL-Treatment Functional [place] Measure 0=Not Assessed/NA 4=Minimal Assistance 1=Total Assistance 5=Supervision or Setup 2=Maximal Assistance 6=Modified [place] 3=Moderate Assistance 7=Complete IndependenceIRFPAI Quality Coding Scale 6 Independent with activity with or without an assistive device 5 Patient requires set up or clean up by helper. Patient completes activity by themselves 4 Supervision or touching assist (CGA). [place] provide cues , steadying assist 3 The helper provides less than half the effort to complete the activity 2 The helper provides more than half the effort to complete the activity 1 Dependent. The helper does all the effort to complete an activity 7 Patient refused to complete or attempt activity 9 The patient did not perform the activity before the current illness or injury 88 Not attempted due to Medical conditions or safety concerns Other Treatment Pt able to go from sitting to standing from recliner with supervision. SBA using FWW to ambulate to therapy gym. Pt then completed arm bike for 15 min at 20 [place] resistance to increase strength and activity tolerance for daily functional tasks. Pt took recovery break after arm bike. Pt began to ambulate back to room and family came. After therapy, pt sitting at table in [facility] area. All needs met. OT Short Term Goals Short Term Goals Time Frame: Feb 13, 2017 Eating(FIM): 5 Grooming(FIM): 5 Bathing(FIM): 4 Upper Body Dressing(FIM): 5 Lower Body Dressing(FIM): 4 Toileting(FIM): 5 Transfers (B,C,W/C) (FIM): 5 Toilet/Commode Transfer(FIM): 5 Shower Transfer(FIM): 4 Additional Short Term Goals: 1-Demonstrate ADL Tasks, 2-Verbalize Understanding , 3-ImproveStrength/Priya 1=Demonstrate adherence to instructed precautions during ADL tasks. 2=Patient will verbalize/demonstrate understanding of assistive devices/ modifications for ADL. 3=Patient will improve strength/tolerance for activity to enable patient to perform ADL's. OT Director Of Hospitality Goals Director Of Hospitality Goals Time Frame: Feb 20, 2017 Eating (FIM): 6 Eating (QC): 6 Groomin Oral Hygiene (QC): 5 Bathing(FIM): 5 Shower/Bathe Self (QC): 5 Upper Body Dressing(FIM): 6 Upper Body Dressing (QC): 5 Lower Body Dressing(FIM): 5 Lower Body Dressing (QC): 5 On/Off Footwear (QC): 5 Toileting(FIM): 6 Toileting Hygiene (QC): 6 Transfers (B,C,W/C) (FIM): 6 Toilet/Commode Transfer(FIM): 6 Toilet/Commode Transfer (QC): 6 Shower Transfer(FIM): 5 Additional Goals: 1-Demonstrate ADL Tasks, 2-Verbalize Understanding, 3- ImproveStrength/Priya 1=Demonstrate adherence to instructed precautions during ADL tasks. 2=Patient will verbalize/demonstrate understanding of assistive devices/ modifications for ADL. 3=Patient will improve strength/tolerance for activity to enable patient to perform ADL's. OT Education/Plan Discharge Recommendations Plan/Recommendations: Continue POC Treatment Plan/Plan of Care Patient would benefit from OT for education, treatment and training to promote independence in ADL's, mobility, safety and/or upper extremity function for ADL' s. Plan of Care: ADL Retraining, Functional Mobility, UE Funct Exercise/Act Treatment Duration: Feb 20, 2017 Frequency: At least 5 of 7 days/Wk (IRF) Estimated Hrs Per Day: 1.5 hours per day Agreement: Yes Rehab Potential: Good Time/GCodes Start Time: 11:30 Stop Time: 12:00 Total Time Billed (hr/min): 30 Billed Treatment Time 1 visit-FA 1 (10 min) EX 1 (20 min) KEITH GRANADOS Feb 12, 2017 12:56
--- NOTE | 2017-02-12 14:58 | Physical Therapy Daily Note ---
PT Daily Note-Current Subjective Agreeable to PT. Pt had family in for lunch and she talked much about how she enjoyed the visit. No complaints. Pt talks of plans to discharge next week and feels confident she will be ready. Mental Status Patient Orientation: Person, Place, Time, Situation Transfers Functional [place] Measure 0=Not Assessed/NA 4=Minimal Assistance 1=Total Assistance 5=Supervision or Setup 2=Maximal Assistance 6=Modified [place] 3=Moderate Assistance 7=Complete IndependenceIRFPAI Quality Coding Scale 6 Independent with activity with or without an assistive device 5 Patient requires set up or clean up by helper. Patient completes activity by themselves 4 Supervision or touching assist (CGA). [place] provide cues , steadying assist 3 The helper provides less than half the effort to complete the activity 2 The helper provides more than half the effort to complete the activity 1 Dependent. The helper does all the effort to complete an activity 7 Patient refused to complete or attempt activity 9 The patient did not perform the activity before the current illness or injury 88 Not attempted due to Medical conditions or safety concerns Pt able to perform all sit to stand transfers with SBA with skilled cues for hand placement 25% of the time. Weight Bearing Right Lower Extremity: Right Weight Bearing/Tolerated Left Lower Extremity: Left Full Weight Bearing Gait Training Does the Patient Walk?: Yes Gait (FIM): 4 Distance (FIM): 3=150 ft Distance: 150 ft and 250 ft; 50 ft Walk 10 feet (QC): 4 Walk 50 ft with 2 Turns(QC): 4 Walk 150 ft (QC): 4 Gait Assistive Device: Cane Large Base Quad Slight antalgia noted with weight bear on the right. Exercises Standing: Heel/toe raises, Marching, Mini squats Standing Reps: 15 (Sit to stand transfer 2 x 5 to address glut strength and repetition with hand placement for transfer. ) Assessment Current Status: Good Progress Gait and transfers are progressing. Pt making functional gains. Good carry over of safety instruction. PT Short Term Goals Short Term Goals Time Frame: Feb 13, 2017 Transfers (B,C,W/C) (FIM): 5 (met) Gait (FIM): 2 (met) Gait Distance Comment: 50' Gait Level of Assist: 4 Gait Assistive Device: FWW Wheelchair Distance: 100' PT Vp Corporate Partnerships Goals Vp Corporate Partnerships Goals PT Vp [employer] Partnerships Goals Time Frame: Feb 27, 2017 Transfers (B,C,W/C) (FIM): 6 Sit to Lying (QC): 6 Lying-Sitting on Side/Bed(QC): 6 Sit to Stand (QC): 6 Rollin Roll Left to Right (QC): 6 Chair/Hze-kz-Fapeu Xfer(QC): 6 Car Transfer (QC): 4 Gait (FIM): 5 Distance: 150' Walk 10 feet (QC): 4 Walk 10ft-Uneven Surface(QC): 4 Walk 50ft with 2 Turns (QC): 4 Walk 150 ft (QC): 4 Gait Level of Assist: 5 Gait Assistive Device: FWW Stairs (FIM): 2 # of Steps: 4 1 Step (curb) (QC): 4 4 Steps (QC): 4 Stairs Level Of Assist: 4 PT Plan Problem List Problem List: Activity Tolerance, Functional Strength, Safety, Balance, Gait, Transfer, Bed Mobility Treatment/Plan Treatment Plan: Continue Plan of Care Treatment Plan: Bed Mobility, Education, Functional Activity Priya, Functional Strength, Group Therapy, Gait, Safety, Therapeutic Exercise, Transfers Treatment Duration: Feb 27, 2017 Frequency: At least 5 of 7 days/Wk (IRF) Estimated Hrs Per Day: 1.5 hours per day Patient and/or Family Agrees t: Yes Safety Risks/Education Patient Education: Transfer Techniques, Safety Issues Teaching Recipient: Patient Teaching Methods: Demonstration, Discussion Response to Teaching: Reinforcement Needed Discharge Recommendations Therapy D/C Recommendations: Physical Therapy Home Care Time/GCodes Time In: 1404 Time Out: 1435 Total Billed Treatment Time: 31 Total Billed Treatment visit EX 15 GT 16 KEITH ALANIZ PT Feb 12, 2017 14:58
[2017-02-12] MEDS: RIVAROXABAN 10 MG TABLET (XARELTO) PO SCH (17:52)
[2017-02-12 18:12] VITALS: BP 129/86
[2017-02-12] MEDS: POLYETHYLENE GLYCOL 17 GM (MIRALAX) PACK PO SCH (19:48)
[2017-02-12] MEDS: rOPINIRole 1 MG (REQUIP) TABLET PO SCH (20:25)
[2017-02-13 05:27] VITALS: BP 114/66
[2017-02-13] MEDS: PANTOPRAZOLE 20 MG TABLET (PROTONIX) PO SCH ×2 (06:04→20:56)
[2017-02-13] MEDS: CALCIUM CARB + VIT D 600 MG (CALCARB + D) TAB PO SCH (06:04)
[2017-02-13] MEDS: MULTIVIT W/MINERALS TAB (THERAGRAN M) PO SCH (06:04)
[2017-02-13 07:15] LABS: HEMOGLOBIN 9.8 G/DL (11.5-16.0); MEAN PLATELET VOLUME 9.6 FL (7.4-10.4); RED BLOOD COUNT 3.05 10^6/uL (4.35-5.85); RED CELL DISTRIBUTION WIDTH 15.8 % (10.0-14.5); WHITE BLOOD COUNT 7.8 10^3/uL (4.3-11.0)
[2017-02-13 07:33] LABS: BUN/CREATININE RATIO 22; CALCIUM 9.1 MG/DL (8.5-10.1); CARBON DIOXIDE 28 MMOL/L (21-32); CHLORIDE 103 MMOL/L (98-107); CREATININE SERUM 0.67 MG/DL (0.60-1.30); GFR ESTIMATED > 60; GLUCOSE 188 MG/DL (70-105); POTASSIUM 3.9 MMOL/L (3.6-5.0); SODIUM 140 MMOL/L (135-145)
--- NOTE | 2017-02-13 07:58 | Occupational Ther Daily Note ---
OT Current Status-Daily Note Subjective Pt alert, sitting in recliner. Pt agreed to therapy. Pt stated that she felt very good. No c/o pain. Mental Status/Objective Patient Orientation: Person, Place, Time, Situation Functional [place] Measure 0=Not Assessed/NA 4=Minimal Assistance 1=Total Assistance 5=Supervision or Setup 2=Maximal Assistance 6=Modified [place] 3=Moderate Assistance 7=Complete [place] Attachments: IV ADL-Treatment Pt ambulated from room to bathroom with supervision using FWW. Pt transferred into shower with supervision using FWW, grabbars and shower bench. Pt able to complete bathing using shower bench, long handle sponge, hand held shower and grabbars by self. Pt retrieved own clothes and transported to bathroom using FWW. Pt then was able to complete all dressing using AE for lower body by self with supervision for safety. Pt then ambulated to sink and sat in chair to complete grooming by self. After therapy, pt sitting in recliner with call light/phone in reach. All needs met in room. Functional [place] Measure 0=Not Assessed/NA 4=Minimal Assistance 1=Total Assistance 5=Supervision or Setup 2=Maximal Assistance 6=Modified [place] 3=Moderate Assistance 7=Complete IndependenceIRFPAI Quality Coding Scale 6 Independent with activity with or without an assistive device 5 Patient requires set up or clean up by helper. Patient completes activity by themselves 4 Supervision or touching assist (CGA). [place] provide cues , steadying assist 3 The helper provides less than half the effort to complete the activity 2 The helper provides more than half the effort to complete the activity 1 Dependent. The helper does all the effort to complete an activity 7 Patient refused to complete or attempt activity 9 The patient did not perform the activity before the current illness or injury 88 Not attempted due to Medical conditions or safety concerns Grooming (FIM): 6 Oral Hygiene (QC): 6 Bathing (FIM): 5 Shower/Bathe Self (QC): 5 Upper Body (FIM): 5 Upper Body Dressing (QC): 5 Lower Body Dressing (FIM): 5 Lower Body Dressing (QC): 4 On/Off Footwear (QC): 5 Toileting (FIM): 5 Toileting Hygiene (QC): 4 Transfers (B, C, W/C) (FIM): 5 Toilet/Commode Transfer (FIM): 5 Toilet Transfer (QC): 4 Shower Transfer(FIM): 5 OT Short Term Goals Short Term Goals Time Frame: Feb 13, 2017 Eating(FIM): 5 Grooming(FIM): 5 Bathing(FIM): 4 Upper Body Dressing(FIM): 5 Lower Body Dressing(FIM): 4 Toileting(FIM): 5 Transfers (B,C,W/C) (FIM): 5 (met) Toilet/Commode Transfer(FIM): 5 Shower Transfer(FIM): 4 Additional Short Term Goals: 1-Demonstrate ADL Tasks, 2-Verbalize Understanding , 3-ImproveStrength/Priya 1=Demonstrate adherence to instructed precautions during ADL tasks. 2=Patient will verbalize/demonstrate understanding of assistive devices/ modifications for ADL. 3=Patient will improve strength/tolerance for activity to enable patient to perform ADL's. OT Retirement Goals Heat Transfer Technician Goals Time Frame: Feb 20, 2017 Eating (FIM): 6 Eating (QC): 6 Groomin Oral Hygiene (QC): 5 Bathing(FIM): 5 Shower/Bathe Self (QC): 5 Upper Body Dressing(FIM): 6 Upper Body Dressing (QC): 5 Lower Body Dressing(FIM): 5 Lower Body Dressing (QC): 5 On/Off Footwear (QC): 5 Toileting(FIM): 6 Toileting Hygiene (QC): 6 Transfers (B,C,W/C) (FIM): 6 Toilet/Commode Transfer(FIM): 6 Toilet/Commode Transfer (QC): 6 Shower Transfer(FIM): 5 Additional Goals: 1-Demonstrate ADL Tasks, 2-Verbalize Understanding, 3- ImproveStrength/Priya 1=Demonstrate adherence to instructed precautions during ADL tasks. 2=Patient will verbalize/demonstrate understanding of assistive devices/ modifications for ADL. 3=Patient will improve strength/tolerance for activity to enable patient to perform ADL's. OT Education/Plan Discharge Recommendations Plan/Recommendations: Continue POC Treatment Plan/Plan of Care Patient would benefit from OT for education, treatment and training to promote independence in ADL's, mobility, safety and/or upper extremity function for ADL' s. Plan of Care: ADL Retraining, Functional Mobility, UE Funct Exercise/Act Treatment Duration: Feb 20, 2017 Frequency: At least 5 of 7 days/Wk (IRF) Estimated Hrs Per Day: 1.5 hours per day Agreement: Yes Rehab Potential: Good Time/GCodes Start Time: 06:55 Stop Time: 07:55 Total Time Billed (hr/min): 60 Billed Treatment Time 1 visit-ADL 4 (60 min) KEITH GRANADOS Feb 13, 2017 07:58
[2017-02-13] MEDS: LACTULOSE SYRUP 10GM/15ML (ENULOSE) 30ML UDC PO SCH ×2 (08:00→20:56)
[2017-02-13] MEDS: MAGNESIUM OXIDE (MAG-OX)400 MG TAB PO SCH (08:00)
[2017-02-13] MEDS: HYDROcodone/APAP 10 MG/325 MG (LORTAB) TAB PO PRN (08:01)
[2017-02-13] MEDS: DOCUSATE SODIUM 100 MG (COLACE) CAP PO SCH ×2 (08:01→20:56)
--- NOTE | 2017-02-13 10:53 | Physical Therapy Daily Note ---
PT Daily Note-Current Subjective Patient is very agreeable to participate with PT. She reports she is doing much better and limited right LE pain. Pain Numeric Pain Scale: 4 Location: Right Location Body Site: Hip Pain Description: Ache Mental Status Patient Orientation: Normal For Age Transfers Functional [place] Measure 0=Not Assessed/NA 4=Minimal Assistance 1=Total Assistance 5=Supervision or Setup 2=Maximal Assistance 6=Modified [place] 3=Moderate Assistance 7=Complete IndependenceIRFPAI Quality Coding Scale 6 Independent with activity with or without an assistive device 5 Patient requires set up or clean up by helper. Patient completes activity by themselves 4 Supervision or touching assist (CGA). [place] provide cues , steadying assist 3 The helper provides less than half the effort to complete the activity 2 The helper provides more than half the effort to complete the activity 1 Dependent. The helper does all the effort to complete an activity 7 Patient refused to complete or attempt activity 9 The patient did not perform the activity before the current illness or injury 88 Not attempted due to Medical conditions or safety concerns Transfers (B, C, W/C) (FIM): 6 Scootin Roll Left to Right (QC): 6 Supine to/from Sit: 6 Sit to/from Stand: 6 Sit to Lying (QC): 6 Sit to Stand (QC): 6 Car Transfer (QC): 6 Weight Bearing Right Lower Extremity: Right Weight Bearing/Tolerated Left Lower Extremity: Left Full Weight Bearing Gait Training Does the Patient Walk?: Yes Gait (FIM): 6 Distance (FIM): 3=150 ft Distance: 200' x 6 Walk 10 feet (QC): 6 Walk 50 ft with 2 Turns(QC): 6 Walk 150 ft (QC): 6 Gait Level of Assist: 6 Gait Assistive Device: FWW slightly antalgic with reciprocal pattern Stair Training Stair Training: Handrails/: 2 handrails Stairs (FIM): 5 #of Steps: 12 1 Step (curb) (QC): 5 4 Steps (QC): 5 12 Steps (QC): 5 Stairs: Pattern: Step to Level of Assist: 5 Exercises Supine Ex: Ankle pumps, Quad Set, Heel Slides Supine Reps: 25 (2 sets) Seated Therapy Exercises: Long arc quads, Hip flexion Seated Reps: 25 Standing: Heel/toe raises, 3 way Ex=Flex, Abd, Ext, Marching, Mini squats Standing Reps: 25 (2 sets) NuStep Minutes: 20 NuStep Workload: 4 (to improve functional strength and mobility to improve activity tolerance) Assessment Current Status: Excellent Progress Patient is making great gains with treatment plan and is motivated to return to home next week. PT Short Term Goals Short Term Goals Time Frame: Feb 13, 2017 Transfers (B,C,W/C) (FIM): 5 (met) Gait (FIM): 2 (met) Gait Distance Comment: 50' Gait Level of Assist: 4 Gait Assistive Device: FWW Wheelchair Distance: 100' PT Detention Goals Bladder Tier Goals PT Bladder Tier Goals Time Frame: Feb 27, 2017 Transfers (B,C,W/C) (FIM): 6 Sit to Lying (QC): 6 Lying-Sitting on Side/Bed(QC): 6 Sit to Stand (QC): 6 Rollin Roll Left to Right (QC): 6 Chair/Gwn-io-Asdmq Xfer(QC): 6 Car Transfer (QC): 4 Gait (FIM): 5 Distance: 150' Walk 10 feet (QC): 4 Walk 10ft-Uneven Surface(QC): 4 Walk 50ft with 2 Turns (QC): 4 Walk 150 ft (QC): 4 Gait Level of Assist: 5 Gait Assistive Device: FWW Stairs (FIM): 2 # of Steps: 4 1 Step (curb) (QC): 4 4 Steps (QC): 4 Stairs Level Of Assist: 4 PT Plan Treatment/Plan Treatment Plan: Continue Plan of Care Treatment Plan: Bed Mobility, Education, Functional Activity Priya, Functional Strength, Group Therapy, Gait, Safety, Therapeutic Exercise, Transfers Treatment Duration: Feb 27, 2017 Frequency: At least 5 of 7 days/Wk (IRF) Estimated Hrs Per Day: 1.5 hours per day Patient and/or Family Agrees t: Yes Safety Risks/Education Patient Education: Safety Issues Teaching Recipient: Patient Teaching Methods: Discussion Response to Teaching: Verbalize Understanding Discharge Recommendations Therapy D/C Recommendations: Physical Therapy Home Care Time/GCodes Time In: 915 Time Out: 1045 Total Billed Treatment Time: 90 Total Billed Treatment 1 visit EX x 4 65 min GT x 2 25 min EVARISTO WHITE PT Feb 13, 2017 10:53
--- NOTE | 2017-02-13 11:28 | Occupational Ther Daily Note ---
OT Current Status-Daily Note Subjective Pt alert, just finishing up with PT. Took over care of pt. Pt agreed to therapy. No c/o pain. Mental Status/Objective Patient Orientation: Person, Place, Time, Situation Functional [place] Measure 0=Not Assessed/NA 4=Minimal Assistance 1=Total Assistance 5=Supervision or Setup 2=Maximal Assistance 6=Modified [place] 3=Moderate Assistance 7=Complete [place] Attachments: IV ADL-Treatment Functional [place] Measure 0=Not Assessed/NA 4=Minimal Assistance 1=Total Assistance 5=Supervision or Setup 2=Maximal Assistance 6=Modified [place] 3=Moderate Assistance 7=Complete IndependenceIRFPAI Quality Coding Scale 6 Independent with activity with or without an assistive device 5 Patient requires set up or clean up by helper. Patient completes activity by themselves 4 Supervision or touching assist (CGA). [place] provide cues , steadying assist 3 The helper provides less than half the effort to complete the activity 2 The helper provides more than half the effort to complete the activity 1 Dependent. The helper does all the effort to complete an activity 7 Patient refused to complete or attempt activity 9 The patient did not perform the activity before the current illness or injury 88 Not attempted due to Medical conditions or safety concerns Other Treatment Pt educated on kitchen safety and mobility using FWW. Pt demonstrated understanding of using FWW and countertop when appropriate for safety. No LOB noted during task. Pt then ambulated to therapy gym with FWW. Arm bike completed for 15 min at 25 [place] resistance to increase strength and activity tolerance for daily functional tasks. Pt then ambulated back to room and sat in recliner. After therapy, pt sitting in recliner with call light/phone in reach. All needs met in room. OT Short Term Goals Short Term Goals Time Frame: Feb 13, 2017 Eating(FIM): 5 Grooming(FIM): 5 Bathing(FIM): 4 Upper Body Dressing(FIM): 5 Lower Body Dressing(FIM): 4 Toileting(FIM): 5 Transfers (B,C,W/C) (FIM): 5 (met) Toilet/Commode Transfer(FIM): 5 Shower Transfer(FIM): 4 Additional Short Term Goals: 1-Demonstrate ADL Tasks, 2-Verbalize Understanding , 3-ImproveStrength/Priya 1=Demonstrate adherence to instructed precautions during ADL tasks. 2=Patient will verbalize/demonstrate understanding of assistive devices/ modifications for ADL. 3=Patient will improve strength/tolerance for activity to enable patient to perform ADL's. OT Retirement Goals Word Processor Operator Goals Time Frame: Feb 20, 2017 Eating (FIM): 6 Eating (QC): 6 Groomin Oral Hygiene (QC): 5 Bathing(FIM): 5 Shower/Bathe Self (QC): 5 Upper Body Dressing(FIM): 6 Upper Body Dressing (QC): 5 Lower Body Dressing(FIM): 5 Lower Body Dressing (QC): 5 On/Off Footwear (QC): 5 Toileting(FIM): 6 Toileting Hygiene (QC): 6 Transfers (B,C,W/C) (FIM): 6 Toilet/Commode Transfer(FIM): 6 Toilet/Commode Transfer (QC): 6 Shower Transfer(FIM): 5 Additional Goals: 1-Demonstrate ADL Tasks, 2-Verbalize Understanding, 3- ImproveStrength/Priya 1=Demonstrate adherence to instructed precautions during ADL tasks. 2=Patient will verbalize/demonstrate understanding of assistive devices/ modifications for ADL. 3=Patient will improve strength/tolerance for activity to enable patient to perform ADL's. OT Education/Plan Discharge Recommendations Plan/Recommendations: Continue POC Treatment Plan/Plan of Care Patient would benefit from OT for education, treatment and training to promote independence in ADL's, mobility, safety and/or upper extremity function for ADL' s. Plan of Care: ADL Retraining, Functional Mobility, UE Funct Exercise/Act Treatment Duration: Feb 20, 2017 Frequency: At least 5 of 7 days/Wk (IRF) Estimated Hrs Per Day: 1.5 hours per day Agreement: Yes Rehab Potential: Good Time/GCodes Start Time: 10:45 Stop Time: 11:15 Total Time Billed (hr/min): 30 Billed Treatment Time 1 visit-FA 1 (15 min) EX 1 (15 min) KEITH GRANADOS Feb 13, 2017 11:28
[2017-02-13] MEDS: IRON SUCROSE INJECTION 200 MG in NS (IVPB) 100 ML IV SCH (11:37)
--- NOTE | 2017-02-13 11:54 | Progress Note-Standard ---
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 Making good progress. Pain decreased. Exam-- incision healed well. [place] in place Assessment: postop bipolar right hip Plan: DC siobhan continue PT will follow up in office in 2-3 weeks after DC to home next week MOOKIE PALMER MD Feb 13, 2017 11:54
--- NOTE | 2017-02-13 12:52 | Progress Note-Hospitalist ---
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 Wang will look today to see if siobhan can come out Patient Interview: RN showed me the inner aspect of the right ankle and pt discussed the redness and pain. I informed the pt that I is most likely due to the swelling and we can start some cream to relieve the irritation. Physical exam stable. Lung sound perfect Pt confirmed having BMs AFVSS, pleasant, appears improved RRR w/murmur no changes CTAB Noted 1+ edema ASHWIN's on Assessment: Acute right femur fracture sustained in fall at home s/p repair uncomplicated History of moderate aortic stenosis in 2012 was in process of referral to Dr. Brizuela so stat echo ordered and Dr. Brizuela has seen in consultation but stable Restless leg syndrome Irritable bowel syndrome constipation predominant with post op constipation continues so increasing meds today Post operative anemia due to acute blood loss hgb 8.0 on Venofer Thrombocytopenia source unknown monitor closely Right inner ankle abrasion vs. venous stasis dermatitis Plan: BM regimen Venofer DC Improve diet consumption Kenalog cream Scribed by Nataly eBach under direct supervision of Dr. Fely Keys. FELY KEYS DO Feb 13, 2017 12:52
--- NOTE | 2017-02-13 14:34 | PM & R (SOAP) Progress Note ---
Subjective Time Seen by Provider: 14:30 Subjective/Events-last exam Patient was seen in her room this afternoon Patient Modified I(ndependent for transfers.Appreciate DR ferrara note and orders Objective Exam Last Set of Vital Signs Vital Signs Date Time Temp Pulse Resp B/P (MAP) Pulse Ox O2 Delivery O2 Flow Rate FiO2 02/13/17 08:49 Room Air 02/13/17 05:27 98.2 75 17 114/66 (82) 97 Capillary Refill : I&O Intake and Output 02/13/17 00:00 Intake Total 1100 ml Balance 1100 ml Intake Oral 1100 ml # Voids 6 General: Alert, Oriented X3, Cooperative, No Acute Distress HEENT: Atraumatic, PERRLA, EOMI, Mucous Memb Moist/Chance Neck: Supple, No JVD Lungs: Clear to Auscultation Heart: Regular Rate Abdomen: Normal Bowel Sounds, Soft, No Tenderness Extremities: Other (abrasion rt ankle) Neuro: Other (Strength improving with decreased pain) Results Lab Laboratory Tests 02/11/17 05:05: White Blood Count 8.3, Red Blood Count 2.64L, Hemoglobin 8.6L, Hematocrit 27L, Mean Corpuscular Volume 102H, Mean Corpuscular Hemoglobin 33, Mean Corpuscular Hemoglobin Concent 32, Red Cell Distribution Width 15.1H, Platelet Count 243, Mean Platelet Volume 9.7, Neutrophils (%) (Auto) 65, Lymphocytes (%) (Auto) 22, Monocytes (%) (Auto) 10, Eosinophils (%) (Auto) 2, Basophils (%) (Auto) 1, Neutrophils # (Auto) 5.5, Lymphocytes # (Auto) 1.8, Monocytes # (Auto) 0.8, Eosinophils # (Auto) 0.2, Basophils # (Auto) 0.0, Sodium Level 139, Potassium Level 3.8, Chloride Level 104, Carbon Dioxide Level 26, Anion Gap 9, Blood Urea Nitrogen 13, Creatinine 0.58L, Estimat Glomerular Filtration Rate > 60, BUN/ Creatinine Ratio 22, Glucose Level 132H, Calcium Level 8.4L, Magnesium Level 1.7L 02/13/17 07:06: White Blood Count 7.8, Red Blood Count 3.05L, Hemoglobin 9.8L, Hematocrit 32L, Mean Corpuscular Volume 103H, Mean Corpuscular Hemoglobin 32, Mean Corpuscular Hemoglobin Concent 31L, Red Cell Distribution Width 15.8H, Platelet Count 347, Mean Platelet Volume 9.6, Sodium Level 140, Potassium Level 3.9, Chloride Level 103, Carbon Dioxide Level 28, Anion Gap 9, Blood Urea Nitrogen 15, Creatinine 0.67, Estimat Glomerular Filtration Rate > 60, BUN/Creatinine Ratio 22, Glucose Level 188H, Calcium Level 9.1 Assessment/Plan Assessment Rt femur frx s/p repair DR Wang WBAT Postop anmeia on preplacement Trrombocytopenia Abrasion rt ankle IBS with constipation Plan Continue PT/OT Sutures to come out Treat abrasion topically Discharge set tentatively for 02-20-16 to home with family and HHC See Team Conference report from 02-11-17 for full functional update Adjust Bowel program-See orders. MARYLOU CYR MD Feb 13, 2017 14:34
[2017-02-13] MEDS: RIVAROXABAN 10 MG TABLET (XARELTO) PO SCH (17:25)
[2017-02-13 18:08] VITALS: BP 109/63
[2017-02-13] MEDS: POLYETHYLENE GLYCOL 17 GM (MIRALAX) PACK PO SCH (20:57)
[2017-02-13] MEDS: TRIAMCINOLONE 0.1% CR (KENALOG) 80 GM TUBE TP SCH (20:57)
[2017-02-13] MEDS: rOPINIRole 1 MG (REQUIP) TABLET PO SCH (20:57)
[2017-02-14] MEDS: HYDROcodone/APAP 10 MG/325 MG (LORTAB) TAB PO PRN (05:14)
[2017-02-14 05:53] VITALS: BP 127/74
[2017-02-14] MEDS: PANTOPRAZOLE 20 MG TABLET (PROTONIX) PO SCH ×2 (06:02→20:00)
[2017-02-14] MEDS: CALCIUM CARB + VIT D 600 MG (CALCARB + D) TAB PO SCH (06:02)
[2017-02-14] MEDS: MULTIVIT W/MINERALS TAB (THERAGRAN M) PO SCH (06:02)
[2017-02-14] MEDS: MAGNESIUM OXIDE (MAG-OX)400 MG TAB PO SCH (08:29)
[2017-02-14] MEDS: TRIAMCINOLONE 0.1% CR (KENALOG) 80 GM TUBE TP SCH ×2 (08:30→20:00)
[2017-02-14] MEDS: LACTULOSE SYRUP 10GM/15ML (ENULOSE) 30ML UDC PO SCH ×2 (08:30→19:57)
[2017-02-14] MEDS: DOCUSATE SODIUM 100 MG (COLACE) CAP PO SCH ×2 (08:30→19:58)
--- NOTE | 2017-02-14 10:44 | Physical Therapy Daily Note ---
PT Daily Note-Current Subjective Pt. up in chair and agrees to therapy. She has no c/o pain. Mental Status Patient Orientation: Normal For Age Transfers Functional [place] Measure 0=Not Assessed/NA 4=Minimal Assistance 1=Total Assistance 5=Supervision or Setup 2=Maximal Assistance 6=Modified [place] 3=Moderate Assistance 7=Complete IndependenceIRFPAI Quality Coding Scale 6 Independent with activity with or without an assistive device 5 Patient requires set up or clean up by helper. Patient completes activity by themselves 4 Supervision or touching assist (CGA). [place] provide cues , steadying assist 3 The helper provides less than half the effort to complete the activity 2 The helper provides more than half the effort to complete the activity 1 Dependent. The helper does all the effort to complete an activity 7 Patient refused to complete or attempt activity 9 The patient did not perform the activity before the current illness or injury 88 Not attempted due to Medical conditions or safety concerns Transfers (B, C, W/C) (FIM): 7 (7) Sit to/from Stand: 7 Weight Bearing Right Lower Extremity: Right Weight Bearing/Tolerated Left Lower Extremity: Left Full Weight Bearing Gait Training Does the Patient Walk?: Yes Gait (FIM): 6 Distance (FIM): 3=150 ft Distance: 2 x 100 ft, x 300 ft Gait Level of Assist: 6 Gait Persons Needed: 1 Gait Assistive Device: FWW Exercises Seated Therapy Exercises: Long arc quads, Hip flexion Seated Reps: 20 Standing: Hip Abduction, Hamstring curls, Heel/toe raises Standing Reps: 15 Treatments gait, exercise Assessment Current Status: Excellent Progress, Good Progress Pt. is steady with gait using FWW, has moderate limp on the R LE. She is weak with hip exercises on the R but functional strength is progressing nicely. Pt. up in chair post session with call light and all needs met. PT Short Term Goals Short Term Goals Time Frame: Feb 13, 2017 Transfers (B,C,W/C) (FIM): 5 (met) Gait (FIM): 2 (met) Gait Distance Comment: 50' Gait Level of Assist: 4 Gait Assistive Device: FWW Wheelchair Distance: 100' PT Customer Operations Specialist Goals Senior Living Goals PT Customer Operations Specialist Goals Time Frame: Feb 27, 2017 Transfers (B,C,W/C) (FIM): 6 Sit to Lying (QC): 6 Lying-Sitting on Side/Bed(QC): 6 Sit to Stand (QC): 6 Rollin Roll Left to Right (QC): 6 Chair/Obw-jk-Kcyfn Xfer(QC): 6 Car Transfer (QC): 4 Gait (FIM): 5 Distance: 150' Walk 10 feet (QC): 4 Walk 10ft-Uneven Surface(QC): 4 Walk 50ft with 2 Turns (QC): 4 Walk 150 ft (QC): 4 Gait Level of Assist: 5 Gait Assistive Device: FWW Stairs (FIM): 2 # of Steps: 4 1 Step (curb) (QC): 4 4 Steps (QC): 4 Stairs Level Of Assist: 4 PT Plan Treatment/Plan Treatment Plan: Continue Plan of Care Treatment Plan: Bed Mobility, Education, Functional Activity Priya, Functional Strength, Group Therapy, Gait, Safety, Therapeutic Exercise, Transfers Treatment Duration: Feb 27, 2017 Frequency: At least 5 of 7 days/Wk (IRF) Estimated Hrs Per Day: 1.5 hours per day Patient and/or Family Agrees t: Yes Time/GCodes Time In: 855 Time Out: 922 Total Billed Treatment Time: 27 Total Billed Treatment 1, GT 17', Ex 10' RIZWAN RAINEY PT Feb 14, 2017 10:44
[2017-02-14] MEDS: RIVAROXABAN 10 MG TABLET (XARELTO) PO SCH (17:57)
[2017-02-14 18:30] VITALS: BP 117/66
[2017-02-14] MEDS: POLYETHYLENE GLYCOL 17 GM (MIRALAX) PACK PO SCH (19:58)
[2017-02-14] MEDS: rOPINIRole 1 MG (REQUIP) TABLET PO SCH (20:00)
[2017-02-15 05:03] VITALS: BP 122/76
[2017-02-15] MEDS: PANTOPRAZOLE 20 MG TABLET (PROTONIX) PO SCH ×2 (06:04→21:07)
[2017-02-15] MEDS: CALCIUM CARB + VIT D 600 MG (CALCARB + D) TAB PO SCH (06:04)
[2017-02-15] MEDS: MULTIVIT W/MINERALS TAB (THERAGRAN M) PO SCH (06:04)
[2017-02-15] MEDS: DOCUSATE SODIUM 100 MG (COLACE) CAP PO SCH ×2 (08:07→21:02)
[2017-02-15] MEDS: MAGNESIUM OXIDE (MAG-OX)400 MG TAB PO SCH (08:07)
[2017-02-15] MEDS: TRIAMCINOLONE 0.1% CR (KENALOG) 80 GM TUBE TP SCH ×2 (08:07→21:08)
[2017-02-15] MEDS: LACTULOSE SYRUP 10GM/15ML (ENULOSE) 30ML UDC PO SCH ×2 (08:07→21:03)
[2017-02-15] MEDS: HYDROcodone/APAP 10 MG/325 MG (LORTAB) TAB PO PRN (08:07)
[2017-02-15 11:52] VITALS: BP 122/76
--- NOTE | 2017-02-15 14:00 | Progress Note-Cardiology ---
Cardiology SOAP Progress Note Subjective: No cp or palp or syncope. Mild to mod gen malaise since hip surgery Objective: I&O/Vital Signs Vital Sign - Last 12Hours 02/15/17 02/15/17 02/15/17 02/15/17 05:03 09:05 11:51 11:52 Temp 99.0 Pulse 87 92 Resp 16 B/P (MAP) 122/76 (91) Pulse Ox 97 93 O2 Delivery Room Air Room Air Room Air FiO2 93 21 Intake and Output 02/15/17 00:00 Intake Total 990 ml Balance 990 ml Weight (Pounds): 133 Weight (Ounces): 0.0 Weight (Calculated Kilograms): [id number] Constitutional: AAO x 3, well-developed, well-nourished, other (thin-appearing) Respiratory: No accessory muscle use, other (good bilat air entry) Cardiovascular: regular rate-rhythm, S1 and S2, systolic murmur (3/6 MSM) Gastrointestional: No tender, soft, No guarding, audible bowel sounds Extremities: No clubbing, No cyanosis, significant edema (mild edema RLE (post surgical side)) Neurologic/Psychiatric: oriented x 3, grossly intact, power is 5/5 both on sides Skin: No rash on exposed areas, No ulcerations on exposed areas A/P: Assessment: Bipolar R hemiarthroplasty on 02/04/17 for R hip fracture due a nonsyncopal fall Anemia post-op, stable (gradually improving) Mild thrombocytopenia post-op, resolved Severe aortic stenosis. Echo of shows aortic valve area 0.8 sq cm, LVEF 55-60%, PASP 35 mmHg and grade I diastolic dysfunction of the LV No significant CAD on card cath of 2012 H/o GERD Plan: * Continue current regimen * Monitor labs from time to time * Oupt card f/u advised to f/u on [facility] ELLISON [facility] Feb 15, 2017 14:00
[2017-02-15 17:59] VITALS: BP 109/78
[2017-02-15] MEDS: RIVAROXABAN 10 MG TABLET (XARELTO) PO SCH (19:27)
[2017-02-15] MEDS: POLYETHYLENE GLYCOL 17 GM (MIRALAX) PACK PO SCH (21:03)
[2017-02-15] MEDS: rOPINIRole 1 MG (REQUIP) TABLET PO SCH (21:07)
[2017-02-16 05:11] VITALS: BP 129/76
[2017-02-16] MEDS: CALCIUM CARB + VIT D 600 MG (CALCARB + D) TAB PO SCH (06:13)
[2017-02-16] MEDS: MULTIVIT W/MINERALS TAB (THERAGRAN M) PO SCH (06:14)
[2017-02-16] MEDS: PANTOPRAZOLE 20 MG TABLET (PROTONIX) PO SCH ×2 (06:14→20:35)
[2017-02-16] MEDS: MAGNESIUM OXIDE (MAG-OX)400 MG TAB PO SCH (07:52)
[2017-02-16] MEDS: LACTULOSE SYRUP 10GM/15ML (ENULOSE) 30ML UDC PO SCH ×2 (07:52→20:40)
[2017-02-16] MEDS: HYDROcodone/APAP 10 MG/325 MG (LORTAB) TAB PO PRN (07:52)
[2017-02-16] MEDS: DOCUSATE SODIUM 100 MG (COLACE) CAP PO SCH ×2 (07:52→20:36)
[2017-02-16] MEDS: TRIAMCINOLONE 0.1% CR (KENALOG) 80 GM TUBE TP SCH ×2 (07:56→20:45)
--- NOTE | 2017-02-16 09:17 | Physical Therapy Daily Note ---
PT Daily Note-Current Subjective Pt sitting in recliner upon arrival. Pt agrees to PT. Pain Numeric Pain Scale: 3 Location: Right Location Body Site: Hip Pain Description: Ache, Tightness Mental Status Patient Orientation: Person, Place, Time, Situation Transfers Functional [place] Measure 0=Not Assessed/NA 4=Minimal Assistance 1=Total Assistance 5=Supervision or Setup 2=Maximal Assistance 6=Modified [place] 3=Moderate Assistance 7=Complete IndependenceIRFPAI Quality Coding Scale 6 Independent with activity with or without an assistive device 5 Patient requires set up or clean up by helper. Patient completes activity by themselves 4 Supervision or touching assist (CGA). [place] provide cues , steadying assist 3 The helper provides less than half the effort to complete the activity 2 The helper provides more than half the effort to complete the activity 1 Dependent. The helper does all the effort to complete an activity 7 Patient refused to complete or attempt activity 9 The patient did not perform the activity before the current illness or injury 88 Not attempted due to Medical conditions or safety concerns Scootin Sit to/from Stand: 5 Sit to Stand (QC): 5 Weight Bearing Right Lower Extremity: Right Weight Bearing/Tolerated Left Lower Extremity: Left Full Weight Bearing Gait Training Does the Patient Walk?: Yes Distance (FIM): 3=150 ft Distance: 250' Walk 10 feet (QC): 5 Walk 50 ft with 2 Turns(QC): 5 Walk 150 ft (QC): 5 Gait Level of Assist: 5 Gait Assistive Device: FWW Pt walks with a slight limp or antalgic gait pattern due to discomfort while WB on RLE. This has improved though and pt is putting more weight on RLE. Wheelchair Training Does the Pt Use a Wheelchair?: No Stair Training Stair Training: Handrails/: 2 handrails #of Steps: 12 1 Step (curb) (QC): 5 4 Steps (QC): 5 Stairs: Pattern: Step to Exercises Seated Therapy Exercises: Ankle pumps, Long arc quads, Hip flexion, Kicking activity Seated Reps: 20 NuStep Minutes: 15 Treatments Pt transfers from recliner to standing using FWW at [facility]. Pt ambulates to Therapy Gym using FWW at [facility]. Pt uses NuStep for 15m at Workload 5 then 3 sets of 4 stairs followed by short rest. Pt completes Seated Ex in chair before ambulating in hallway again then returns to room. Pt rests in recliner at end of tx with all needs met. Assessment Current Status: Good Progress Pt's mobility has improved in WBing as well as safety and independence of transfers and ambulation. PT Short Term Goals Short Term Goals Time Frame: Feb 13, 2017 Transfers (B,C,W/C) (FIM): 5 (met) Gait (FIM): 2 (met) Gait Distance Comment: 50' Gait Level of Assist: 4 Gait Assistive Device: FWW Wheelchair Distance: 100' PT Long-Term Goals Nut Tapper Goals PT Nut Tapper Goals Time Frame: Feb 27, 2017 Transfers (B,C,W/C) (FIM): 6 Sit to Lying (QC): 6 Lying-Sitting on Side/Bed(QC): 6 Sit to Stand (QC): 6 Rollin Roll Left to Right (QC): 6 Chair/Vmo-cd-Cetgr Xfer(QC): 6 Car Transfer (QC): 4 Gait (FIM): 5 Distance: 150' Walk 10 feet (QC): 4 Walk 10ft-Uneven Surface(QC): 4 Walk 50ft with 2 Turns (QC): 4 Walk 150 ft (QC): 4 Gait Level of Assist: 5 Gait Assistive Device: FWW Stairs (FIM): 2 # of Steps: 4 1 Step (curb) (QC): 4 4 Steps (QC): 4 Stairs Level Of Assist: 4 PT Plan Problem List Problem List: Activity Tolerance, Functional Strength, Balance Treatment/Plan Treatment Plan: Continue Plan of Care Treatment Plan: Bed Mobility, Education, Functional Activity Priya, Functional Strength, Group Therapy, Gait, Safety, Therapeutic Exercise, Transfers Treatment Duration: Feb 27, 2017 Frequency: At least 5 of 7 days/Wk (IRF) Estimated Hrs Per Day: 1.5 hours per day Patient and/or Family Agrees t: Yes Safety Risks/Education Patient Education: Gait Training, Transfer Techniques, Correct Positioning, Safety Issues Teaching Recipient: Patient Teaching Methods: Discussion Response to Teaching: Verbalize Understanding Time/GCodes Time In: 800 Time Out: 900 Total Billed Treatment 1, FA (15m), EX x2 (30m) & GT (15m) ERIN MARLEY [employer] DEAN Feb 16, 2017 09:17
--- NOTE | 2017-02-16 10:00 | Occupational Ther Daily Note ---
OT Current Status-Daily Note Subjective Pt sitting in chair, agrees to treatment. Mental Status/Objective Functional [place] Measure 0=Not Assessed/NA 4=Minimal Assistance 1=Total Assistance 5=Supervision or Setup 2=Maximal Assistance 6=Modified [place] 3=Moderate Assistance 7=Complete [place] ADL-Treatment Pt states she has already completed all morning ADLs with assist from nursing as needed. Functional [place] Measure 0=Not Assessed/NA 4=Minimal Assistance 1=Total Assistance 5=Supervision or Setup 2=Maximal Assistance 6=Modified [place] 3=Moderate Assistance 7=Complete IndependenceIRFPAI Quality Coding Scale 6 Independent with activity with or without an assistive device 5 Patient requires set up or clean up by helper. Patient completes activity by themselves 4 Supervision or touching assist (CGA). [place] provide cues , steadying assist 3 The helper provides less than half the effort to complete the activity 2 The helper provides more than half the effort to complete the activity 1 Dependent. The helper does all the effort to complete an activity 7 Patient refused to complete or attempt activity 9 The patient did not perform the activity before the current illness or injury 88 Not attempted due to Medical conditions or safety concerns Other Treatment Pt sit to stand with supervision. Gait to therapy gym with FWW, no LOB noted. Arm bike [id number] to increase overall strength and activity tolerance needed for ADLs and transfers. Pt completed activity with moderate resistance and slow pace. No rest breaks needed. Pt performed bilateral UE exercise to increase strength for ADLs and transfers. Pt performed shoulder flexion, abduction, biceps curls, and triceps extension exercises x15-20 reps with moderate resistance (red) theraband. Rest breaks taken between exercises. Skilled cues for proper exercise technique. Pt performed fine motor activity with nuts and bolts with 1# weights in place to increase strength and coordination skills. Pt able to complete activity without difficulty. Graded clothespins task with bilateral hands with 1# weights in place to increase strength and rigger supervisor strength. Pt returned to room, transferred to chair with supervision. Pt sitting in chair with needs met after session. OT Short Term Goals Short Term Goals Time Frame: Feb 13, 2017 Eating(FIM): 5 Grooming(FIM): 5 Bathing(FIM): 4 Upper Body Dressing(FIM): 5 Lower Body Dressing(FIM): 4 Toileting(FIM): 5 Transfers (B,C,W/C) (FIM): 5 (met) Toilet/Commode Transfer(FIM): 5 Shower Transfer(FIM): 4 Additional Short Term Goals: 1-Demonstrate ADL Tasks, 2-Verbalize Understanding , 3-ImproveStrength/Priya 1=Demonstrate adherence to instructed precautions during ADL tasks. 2=Patient will verbalize/demonstrate understanding of assistive devices/ modifications for ADL. 3=Patient will improve strength/tolerance for activity to enable patient to perform ADL's. OT Lumber Marker Goals Lumber Marker Goals Time Frame: Feb 20, 2017 Eating (FIM): 6 Eating (QC): 6 Groomin Oral Hygiene (QC): 5 Bathing(FIM): 5 Shower/Bathe Self (QC): 5 Upper Body Dressing(FIM): 6 Upper Body Dressing (QC): 5 Lower Body Dressing(FIM): 5 Lower Body Dressing (QC): 5 On/Off Footwear (QC): 5 Toileting(FIM): 6 Toileting Hygiene (QC): 6 Transfers (B,C,W/C) (FIM): 6 Toilet/Commode Transfer(FIM): 6 Toilet/Commode Transfer (QC): 6 Shower Transfer(FIM): 5 Additional Goals: 1-Demonstrate ADL Tasks, 2-Verbalize Understanding, 3- ImproveStrength/Priya 1=Demonstrate adherence to instructed precautions during ADL tasks. 2=Patient will verbalize/demonstrate understanding of assistive devices/ modifications for ADL. 3=Patient will improve strength/tolerance for activity to enable patient to perform ADL's. OT Education/Plan Discharge Recommendations Plan/Recommendations: Continue POC Treatment Plan/Plan of Care Patient would benefit from OT for education, treatment and training to promote independence in ADL's, mobility, safety and/or upper extremity function for ADL' s. Plan of Care: ADL Retraining, Functional Mobility, UE Funct Exercise/Act Treatment Duration: Feb 20, 2017 Frequency: At least 5 of 7 days/Wk (IRF) Estimated Hrs Per Day: 1.5 hours per day Agreement: Yes Rehab Potential: Good Time/GCodes Start Time: 09:00 Stop Time: 10:00 Total Time Billed (hr/min): 60 Billed Treatment Time 1 visit, EXx4(60minutes) BROCK MOTT OT Feb 16, 2017 10:00
--- NOTE | 2017-02-16 14:02 | Therapy Group Daily Note ---
Therapy Daily Group Note Patient Education Topic Home Safety, Fall Prevention Exercises LE Seated Exercise, UE Exercise Other/Notes Pt was an active participant in OT/PT group. During introductions, she shared information on a New Year's resolution that she will work on. She contributed to discussion/education on fall prevention and home safety and identified areas in her environment that may contribute to falls. She also did seated UE and LE exercises , including ones that will help with fall prevention. She walked back to her room with SBA for safely, FWW and was left up in recliner, all needs met. Start Time: 12:30 Stop Time: 13:40 Total Billed Treatment Time: 70 Total Billed Treatment visit, 70 minutes group MARIZA VALDES OT Feb 16, 2017 14:02
[2017-02-16] MEDS: RIVAROXABAN 10 MG TABLET (XARELTO) PO SCH (17:05)
[2017-02-16 17:55] VITALS: BP 105/61
[2017-02-16] MEDS: rOPINIRole 1 MG (REQUIP) TABLET PO SCH (20:35)
[2017-02-16] MEDS: POLYETHYLENE GLYCOL 17 GM (MIRALAX) PACK PO SCH (20:36)
[2017-02-17 05:41] VITALS: BP_SYST 116; BP_SYST 127; BP_DIAS 74
[2017-02-17] MEDS: CALCIUM CARB + VIT D 600 MG (CALCARB + D) TAB PO SCH (06:33)
[2017-02-17] MEDS: PANTOPRAZOLE 20 MG TABLET (PROTONIX) PO SCH ×2 (06:33→20:14)
[2017-02-17] MEDS: MULTIVIT W/MINERALS TAB (THERAGRAN M) PO SCH (06:33)
--- NOTE | 2017-02-17 07:45 | Occupational Ther Daily Note ---
OT Current Status-Daily Note Subjective Pt alert, sitting in recliner. Pt eating breakfast. Pt agreed to therapy. No c/o pain. Mental Status/Objective Patient Orientation: Person, Place, Time, Situation Functional [place] Measure 0=Not Assessed/NA 4=Minimal Assistance 1=Total Assistance 5=Supervision or Setup 2=Maximal Assistance 6=Modified [place] 3=Moderate Assistance 7=Complete [place] ADL-Treatment Functional [place] Measure 0=Not Assessed/NA 4=Minimal Assistance 1=Total Assistance 5=Supervision or Setup 2=Maximal Assistance 6=Modified [place] 3=Moderate Assistance 7=Complete IndependenceIRFPAI Quality Coding Scale 6 Independent with activity with or without an assistive device 5 Patient requires set up or clean up by helper. Patient completes activity by themselves 4 Supervision or touching assist (CGA). [place] provide cues , steadying assist 3 The helper provides less than half the effort to complete the activity 2 The helper provides more than half the effort to complete the activity 1 Dependent. The helper does all the effort to complete an activity 7 Patient refused to complete or attempt activity 9 The patient did not perform the activity before the current illness or injury 88 Not attempted due to Medical conditions or safety concerns Eating (FIM): 6 (Dentures. Pt able to complete own set up and uses regular utensils to eat.) Eating (QC): 6 Grooming (FIM): 6 (Sitting at sink, pt able to complete grooming.) Oral Hygiene (QC): 6 Bathing (FIM): 6 (Using grabbars, hand held shower, shower bench and long handle sponge pt is able to complete own bathing.) Bathing Location: L Arm, R Arm, L Upper Leg, R Upper Leg, L Lower Leg ( including foot), R Lower Leg (including foot), Chest, Abdomen, Buttocks, Perineal Area Shower/Bathe Self (QC): 6 Upper Body (FIM): 5 (Supervision. Pt able to retrieve clothing with FWW and don/doff upper body clothing by self.) Upper Body Dressing (QC): 5 Lower Body Dressing (FIM): 5 (Supervision. Pt able to retrieve clothing with FWW and don/doff lower body clothing by self. Uses AE appropriately.) Lower Body Dressing (QC): 5 On/Off Footwear (QC): 5 Toileting (FIM): 6 (Using FWW and grabbar pt able to complete own toileting.) Toileting Hygiene (QC): 6 Transfers (B, C, W/C) (FIM): 6 (Reminders to slow down. Pt able to complete transfers using FWW.) Toilet/Commode Transfer (FIM): 6 (Using grabbars and FWW, pt able to complete by self.) Toilet Transfer (QC): 6 After therapy, pt sitting in recliner with call light/phone in reach. All needs met in room. OT Short Term Goals Short Term Goals Time Frame: Feb 13, 2017 Eating(FIM): 5 Grooming(FIM): 5 Bathing(FIM): 4 Upper Body Dressing(FIM): 5 Lower Body Dressing(FIM): 4 Toileting(FIM): 5 Transfers (B,C,W/C) (FIM): 5 (met) Toilet/Commode Transfer(FIM): 5 Shower Transfer(FIM): 4 Additional Short Term Goals: 1-Demonstrate ADL Tasks, 2-Verbalize Understanding , 3-ImproveStrength/Priya 1=Demonstrate adherence to instructed precautions during ADL tasks. 2=Patient will verbalize/demonstrate understanding of assistive devices/ modifications for ADL. 3=Patient will improve strength/tolerance for activity to enable patient to perform ADL's. OT Extracorporeal Technician Goals Mcfp Goals Time Frame: Feb 20, 2017 Eating (FIM): 6 Eating (QC): 6 Groomin Oral Hygiene (QC): 5 Bathing(FIM): 5 Shower/Bathe Self (QC): 5 Upper Body Dressing(FIM): 6 Upper Body Dressing (QC): 5 Lower Body Dressing(FIM): 5 Lower Body Dressing (QC): 5 On/Off Footwear (QC): 5 Toileting(FIM): 6 Toileting Hygiene (QC): 6 Transfers (B,C,W/C) (FIM): 6 Toilet/Commode Transfer(FIM): 6 Toilet/Commode Transfer (QC): 6 Shower Transfer(FIM): 5 Additional Goals: 1-Demonstrate ADL Tasks, 2-Verbalize Understanding, 3- ImproveStrength/Priya 1=Demonstrate adherence to instructed precautions during ADL tasks. 2=Patient will verbalize/demonstrate understanding of assistive devices/ modifications for ADL. 3=Patient will improve strength/tolerance for activity to enable patient to perform ADL's. OT Education/Plan Discharge Recommendations Plan/Recommendations: Continue POC Treatment Plan/Plan of Care Patient would benefit from OT for education, treatment and training to promote independence in ADL's, mobility, safety and/or upper extremity function for ADL' s. Plan of Care: ADL Retraining, Functional Mobility, UE Funct Exercise/Act Treatment Duration: Feb 20, 2017 Frequency: At least 5 of 7 days/Wk (IRF) Estimated Hrs Per Day: 1.5 hours per day Agreement: Yes Rehab Potential: Good Time/GCodes Start Time: 07:00 Stop Time: 08:00 Total Time Billed (hr/min): 60 Billed Treatment Time 1 visit-ADL 4 (60 min) KEITH GRANADOS Feb 17, 2017 07:45
[2017-02-17] MEDS: TRIAMCINOLONE 0.1% CR (KENALOG) 80 GM TUBE TP SCH ×2 (08:07→20:14)
[2017-02-17] MEDS: DOCUSATE SODIUM 100 MG (COLACE) CAP PO SCH ×2 (08:07→20:15)
[2017-02-17] MEDS: LACTULOSE SYRUP 10GM/15ML (ENULOSE) 30ML UDC PO SCH ×2 (08:07→20:14)
[2017-02-17] MEDS: MAGNESIUM OXIDE (MAG-OX)400 MG TAB PO SCH (08:08)
--- NOTE | 2017-02-17 09:01 | Physical Therapy Daily Note ---
PT Daily Note-Current Subjective Pt sitting up in recliner upon arrival. Pt agrees to PT. Pain Location: No Pain Reported Mental Status Patient Orientation: Person, Place, Time, Situation Transfers Functional [place] Measure 0=Not Assessed/NA 4=Minimal Assistance 1=Total Assistance 5=Supervision or Setup 2=Maximal Assistance 6=Modified [place] 3=Moderate Assistance 7=Complete IndependenceIRFPAI Quality Coding Scale 6 Independent with activity with or without an assistive device 5 Patient requires set up or clean up by helper. Patient completes activity by themselves 4 Supervision or touching assist (CGA). [place] provide cues , steadying assist 3 The helper provides less than half the effort to complete the activity 2 The helper provides more than half the effort to complete the activity 1 Dependent. The helper does all the effort to complete an activity 7 Patient refused to complete or attempt activity 9 The patient did not perform the activity before the current illness or injury 88 Not attempted due to Medical conditions or safety concerns Scootin Sit to/from Stand: 6 Sit to Stand (QC): 6 Weight Bearing Right Lower Extremity: Right Weight Bearing/Tolerated Left Lower Extremity: Left Full Weight Bearing Gait Training Does the Patient Walk?: Yes Distance (FIM): 3=150 ft Distance: 150' Walk 10 feet (QC): 5 Walk 50 ft with 2 Turns(QC): 5 Walk 150 ft (QC): 5 Gait Level of Assist: 5 Gait Persons Needed: 1 Gait Assistive Device: Cane Small Base Quad Pt is walking with normalized gait with FWW and wanted to try a QC to practice before discharge. Pt needs VC for sequencing during ambulation. Wheelchair Training Does the Pt Use a Wheelchair?: No Stair Training Stair Training: Handrails/: 2 handrails #of Steps: 12 1 Step (curb) (QC): 5 4 Steps (QC): 5 12 Steps (QC): 5 Stairs: Pattern: Step to Exercises Seated Therapy Exercises: Ankle pumps, Long arc quads, Hip flexion, Kicking activity, Hip abd/add Seated Reps: 20 NuStep Minutes: 15 NuStep Workload: 6 Treatments Pt transfers from recliner to standing using FWW at Mod I. Pt ambulates in hallway using FWW at Mod I then QC at close SBA. Pt uses NuStep for 15m at Workload 6 followed by 3 set of 4 stairs. Pt completed Seated Ex before returning to room to rest at end of tx with all needs met. Assessment Current Status: Good Progress Pt is improving with safety and independence of transfers and mobility. PT Short Term Goals Short Term Goals Time Frame: Feb 13, 2017 Transfers (B,C,W/C) (FIM): 5 (met) Gait (FIM): 2 (met) Gait Distance Comment: 50' Gait Level of Assist: 4 Gait Assistive Device: FWW Wheelchair Distance: 100' PT Grain Shipper Goals Half-Way Goals PT Half-Way Goals Time Frame: Feb 27, 2017 Transfers (B,C,W/C) (FIM): 6 Sit to Lying (QC): 6 Lying-Sitting on Side/Bed(QC): 6 Sit to Stand (QC): 6 Rollin Roll Left to Right (QC): 6 Chair/Urw-dn-Cpuvn Xfer(QC): 6 Car Transfer (QC): 4 Gait (FIM): 5 Distance: 150' Walk 10 feet (QC): 4 Walk 10ft-Uneven Surface(QC): 4 Walk 50ft with 2 Turns (QC): 4 Walk 150 ft (QC): 4 Gait Level of Assist: 5 Gait Assistive Device: FWW Stairs (FIM): 2 # of Steps: 4 1 Step (curb) (QC): 4 4 Steps (QC): 4 Stairs Level Of Assist: 4 PT Plan Problem List Problem List: Activity Tolerance Treatment/Plan Treatment Plan: Continue Plan of Care Treatment Plan: Bed Mobility, Education, Functional Activity Priya, Functional Strength, Group Therapy, Gait, Safety, Therapeutic Exercise, Transfers Treatment Duration: Feb 27, 2017 Frequency: At least 5 of 7 days/Wk (IRF) Estimated Hrs Per Day: 1.5 hours per day Patient and/or Family Agrees t: Yes Safety Risks/Education Patient Education: Gait Training, Transfer Techniques, Correct Positioning, Safety Issues Teaching Recipient: Patient Teaching Methods: Discussion Response to Teaching: Verbalize Understanding Time/GCodes Time In: 800 Time Out: 900 Total Billed Treatment Time: 60 Total Billed Treatment 1, EX x2 (30m), FA (15m) & GT (15m) ERIN MARLEY DOUGH MAKER Feb 17, 2017 09:01
--- NOTE | 2017-02-17 11:47 | Occupational Ther Daily Note ---
OT Current Status-Daily Note Subjective Pt alert, lying in bed. Pt agreed to therapy. Pt c/o pain, reported to nrsg. Mental Status/Objective Patient Orientation: Person, Place, Time, Situation Functional [place] Measure 0=Not Assessed/NA 4=Minimal Assistance 1=Total Assistance 5=Supervision or Setup 2=Maximal Assistance 6=Modified [place] 3=Moderate Assistance 7=Complete [place] ADL-Treatment Functional [place] Measure 0=Not Assessed/NA 4=Minimal Assistance 1=Total Assistance 5=Supervision or Setup 2=Maximal Assistance 6=Modified [place] 3=Moderate Assistance 7=Complete IndependenceIRFPAI Quality Coding Scale 6 Independent with activity with or without an assistive device 5 Patient requires set up or clean up by helper. Patient completes activity by themselves 4 Supervision or touching assist (CGA). [place] provide cues , steadying assist 3 The helper provides less than half the effort to complete the activity 2 The helper provides more than half the effort to complete the activity 1 Dependent. The helper does all the effort to complete an activity 7 Patient refused to complete or attempt activity 9 The patient did not perform the activity before the current illness or injury 88 Not attempted due to Medical conditions or safety concerns Other Treatment Pt reported that she was able to get up out of bed, ambulate to bathroom, complete toileting and transfers then ambulate back to bed. Pt able to go from supine to sitting EOB by self. Ambulated to therapy gym using FWW. Pt then completed arm bike for 15 min at 25 blackburn resistance to increase strength and activity tolerance for daily functional tasks. Pt ambulated back to room and worked on transitioning from one surface to another then moving items in room. After therapy, pt sitting in recliner with call light/phone in reach. All needs met in room. OT Short Term Goals Short Term Goals Time Frame: Feb 13, 2017 Eating(FIM): 5 Grooming(FIM): 5 Bathing(FIM): 4 Upper Body Dressing(FIM): 5 Lower Body Dressing(FIM): 4 Toileting(FIM): 5 Transfers (B,C,W/C) (FIM): 5 (met) Toilet/Commode Transfer(FIM): 5 Shower Transfer(FIM): 4 Additional Short Term Goals: 1-Demonstrate ADL Tasks, 2-Verbalize Understanding , 3-ImproveStrength/Priya 1=Demonstrate adherence to instructed precautions during ADL tasks. 2=Patient will verbalize/demonstrate understanding of assistive devices/ modifications for ADL. 3=Patient will improve strength/tolerance for activity to enable patient to perform ADL's. OT Rate Marker Goals Rate Marker Goals Time Frame: Feb 20, 2017 Eating (FIM): 6 Eating (QC): 6 Groomin Oral Hygiene (QC): 5 Bathing(FIM): 5 Shower/Bathe Self (QC): 5 Upper Body Dressing(FIM): 6 Upper Body Dressing (QC): 5 Lower Body Dressing(FIM): 5 Lower Body Dressing (QC): 5 On/Off Footwear (QC): 5 Toileting(FIM): 6 Toileting Hygiene (QC): 6 Transfers (B,C,W/C) (FIM): 6 Toilet/Commode Transfer(FIM): 6 Toilet/Commode Transfer (QC): 6 Shower Transfer(FIM): 5 Additional Goals: 1-Demonstrate ADL Tasks, 2-Verbalize Understanding, 3- ImproveStrength/Priya 1=Demonstrate adherence to instructed precautions during ADL tasks. 2=Patient will verbalize/demonstrate understanding of assistive devices/ modifications for ADL. 3=Patient will improve strength/tolerance for activity to enable patient to perform ADL's. OT Education/Plan Discharge Recommendations Plan/Recommendations: Continue POC Treatment Plan/Plan of Care Patient would benefit from OT for education, treatment and training to promote independence in ADL's, mobility, safety and/or upper extremity function for ADL' s. Plan of Care: ADL Retraining, Functional Mobility, UE Funct Exercise/Act Treatment Duration: Feb 20, 2017 Frequency: At least 5 of 7 days/Wk (IRF) Estimated Hrs Per Day: 1.5 hours per day Agreement: Yes Rehab Potential: Good Time/GCodes Start Time: 11:05 Stop Time: 11:35 Total Time Billed (hr/min): 30 Billed Treatment Time 1 visit-FA 1 (15 min) EX 1 (15 min) KEITH GRANADOS Feb 17, 2017 11:47
[2017-02-17] MEDS: HYDROcodone/APAP 10 MG/325 MG (LORTAB) TAB PO PRN (12:16)
--- NOTE | 2017-02-17 14:05 | Physical Therapy Daily Note ---
PT Daily Note-Current Subjective Pt sitting in recliner upon arrival. Pt agrees to PT. Pain Location: No Pain Reported Mental Status Patient Orientation: Person, Place, Time, Situation Transfers Functional [place] Measure 0=Not Assessed/NA 4=Minimal Assistance 1=Total Assistance 5=Supervision or Setup 2=Maximal Assistance 6=Modified [place] 3=Moderate Assistance 7=Complete IndependenceIRFPAI Quality Coding Scale 6 Independent with activity with or without an assistive device 5 Patient requires set up or clean up by helper. Patient completes activity by themselves 4 Supervision or touching assist (CGA). [place] provide cues , steadying assist 3 The helper provides less than half the effort to complete the activity 2 The helper provides more than half the effort to complete the activity 1 Dependent. The helper does all the effort to complete an activity 7 Patient refused to complete or attempt activity 9 The patient did not perform the activity before the current illness or injury 88 Not attempted due to Medical conditions or safety concerns Scootin Sit to/from Stand: 6 Sit to Stand (QC): 6 Weight Bearing Right Lower Extremity: Right Weight Bearing/Tolerated Left Lower Extremity: Left Full Weight Bearing Gait Training Does the Patient Walk?: Yes Distance (FIM): 3=150 ft Distance: 150' Walk 10 feet (QC): 5 Walk 50 ft with 2 Turns(QC): 5 Walk 150 ft (QC): 5 Walking 10ft/uneven surface-QC: 5 Gait Level of Assist: 5 Gait Persons Needed: 1 Gait Assistive Device: Cane Small Base Quad Pt walks with slower kirsten with QC as compared to FWW. Pt needs VC for sequencing. Wheelchair Training Does the Pt Use a Wheelchair?: No Treatments Pt transfers from sitting to standing using QC at Mod I. Pt ambulates in hallway using QC at close SBA. Pt also ambulates across varying surface using QC at close SBA. Pt returns to room to rest at end of tx with all needs met. Assessment Current Status: Good Progress Pt is getting more proficient with QC but still working on some sequencing. PT Short Term Goals Short Term Goals Time Frame: Feb 13, 2017 Transfers (B,C,W/C) (FIM): 5 (met) Gait (FIM): 2 (met) Gait Distance Comment: 50' Gait Level of Assist: 4 Gait Assistive Device: FWW Wheelchair Distance: 100' PT Penitentiary Goals Penitentiary Goals PT Penitentiary Goals Time Frame: Feb 27, 2017 Transfers (B,C,W/C) (FIM): 6 Sit to Lying (QC): 6 Lying-Sitting on Side/Bed(QC): 6 Sit to Stand (QC): 6 Rollin Roll Left to Right (QC): 6 Chair/Cne-kk-[place] Xfer(QC): 6 Car Transfer (QC): 4 Gait (FIM): 5 Distance: 150' Walk 10 feet (QC): 4 Walk 10ft-Uneven Surface(QC): 4 Walk 50ft with 2 Turns (QC): 4 Walk 150 ft (QC): 4 Gait Level of Assist: 5 Gait Assistive Device: FWW Stairs (FIM): 2 # of Steps: 4 1 Step (curb) (QC): 4 4 Steps (QC): 4 Stairs Level Of Assist: 4 PT Plan Problem List Problem List: Activity Tolerance, Gait Treatment/Plan Treatment Plan: Continue Plan of Care Treatment Plan: Bed Mobility, Education, Functional Activity Priya, Functional Strength, Group Therapy, Gait, Safety, Therapeutic Exercise, Transfers Treatment Duration: Feb 27, 2017 Frequency: At least 5 of 7 days/Wk (IRF) Estimated Hrs Per Day: 1.5 hours per day Patient and/or Family Agrees t: Yes Safety Risks/Education Patient Education: Gait Training, Transfer Techniques, Correct Positioning, Safety Issues Teaching Recipient: Patient Teaching Methods: Discussion Response to Teaching: Verbalize Understanding Time/GCodes Time In: 1300 Time Out: 1330 Total Billed Treatment Time: 30 Total Billed Treatment 1, GT (20m) & FA (10m) ERIN MARLEY REDIPPER Feb 17, 2017 14:05
--- NOTE | 2017-02-17 17:47 | PM & R (SOAP) Progress Note ---
Subjective Time Seen by Provider: 17:45 Subjective/Events-last exam Patient was seen in her room this evening Patient progressing well with therapies Patient Modified Independent for transfers .Parients eldest daughter in to0 visist Objective Exam Last Set of Vital Signs Vital Signs Date Time Temp Pulse Resp B/P (MAP) Pulse Ox O2 Delivery O2 Flow Rate FiO2 02/17/17 09:00 Room Air 02/17/17 06:53 95 02/17/17 05:41 98.0 91 20 127/74 (91) 95 Capillary Refill : I&O Intake and Output 02/17/17 00:00 Intake Total 1380 ml Balance 1380 ml Intake Oral 1380 ml # Voids 7 # Bowel Movements 2 General: Alert, Oriented X3, Cooperative, No Acute Distress HEENT: Atraumatic, PERRLA, EOMI, Mucous Memb Moist/[place] Neck: Supple, No JVD Lungs: Clear to Auscultation Heart: Regular Rate Abdomen: Normal Bowel Sounds, Soft, No Tenderness Extremities: Other (abrasion rt ankle) Neuro: Other (Strength improving with decreased pain) Assessment/Plan Assessment Rt femur frx s/p repair DR Wang WBAT Postop anmeia on replacement Trrombocytopenia improved Abrasion rt ankle-improved IBS with constipation improved Plan Continue PT/OT Sutures removed Treat abrasion topically-done Discharge set tentatively for 02-20-16 to home with family and HHC Adjusted Bowel program last week Next Team Conference to be held tomorrow Will discuss details of discharge with Team at that time. MARYLOU CYR MD Feb 17, 2017 17:47
[2017-02-17] MEDS: RIVAROXABAN 10 MG TABLET (XARELTO) PO SCH (18:13)
[2017-02-17 18:51] VITALS: BP 112/60
[2017-02-17] MEDS: POLYETHYLENE GLYCOL 17 GM (MIRALAX) PACK PO SCH (20:14)
[2017-02-17] MEDS: rOPINIRole 1 MG (REQUIP) TABLET PO SCH (20:14)
[2017-02-18 05:20] VITALS: BP 124/68
[2017-02-18] MEDS: PANTOPRAZOLE 20 MG TABLET (PROTONIX) PO SCH ×2 (06:11→20:30)
[2017-02-18] MEDS: CALCIUM CARB + VIT D 600 MG (CALCARB + D) TAB PO SCH (06:11)
[2017-02-18] MEDS: MULTIVIT W/MINERALS TAB (THERAGRAN M) PO SCH (06:11)
[2017-02-18] MEDS: HYDROcodone/APAP 10 MG/325 MG (LORTAB) TAB PO PRN (06:12)
[2017-02-18] MEDS: LACTULOSE SYRUP 10GM/15ML (ENULOSE) 30ML UDC PO SCH ×2 (08:25→20:31)
[2017-02-18] MEDS: TRIAMCINOLONE 0.1% CR (KENALOG) 80 GM TUBE TP SCH ×2 (08:25→20:30)
[2017-02-18] MEDS: DOCUSATE SODIUM 100 MG (COLACE) CAP PO SCH ×2 (08:25→20:31)
[2017-02-18] MEDS: MAGNESIUM OXIDE (MAG-OX)400 MG TAB PO SCH (08:25)
--- NOTE | 2017-02-18 08:55 | PM & R (SOAP) Progress Note ---
Subjective Time Seen by Provider: 08:30 Subjective/Events-last exam Patient was seen in her room this AM with OT Patient concerned about circular erthematous patch approx 4 cm in diameter which hasnt responded to Topical antiinflamatory.area involved over rt medila malleolus and mildly tender to touch.Will ask DR De Los Santos to assess.see orders.Patient Modified Independent for transfers. Review of Systems mildly tender patch as per above rt ankle Objective Exam Last Set of Vital Signs Vital Signs Date Time Temp Pulse Resp B/P (MAP) Pulse Ox O2 Delivery O2 Flow Rate FiO2 02/18/17 07:13 74 97 20 02/18/17 07:12 Room Air 02/18/17 05:20 98.1 20 124/68 (86) Capillary Refill : I&O Intake and Output 02/18/17 00:00 Intake Total 1290 ml Balance 1290 ml Intake Oral 1290 ml # Voids 5 # Bowel Movements 3 General: Alert, Oriented X3, Cooperative, No Acute Distress HEENT: Atraumatic, PERRLA, EOMI, Mucous Memb Moist/[place] Neck: Supple, No JVD Lungs: Clear to Auscultation Heart: Regular Rate Abdomen: Normal Bowel Sounds, Soft, No Tenderness Extremities: Other (abrasion rt ankle) Skin: Other (rash as per above vs mild cellulitis) Neuro: Other (Strength improving with decreased pain) Assessment/Plan Assessment Rt femur frx s/p repair DR Wang WBAT Postop anmeia on replacement Trrombocytopenia improved IBS with constipation improved rash rt ankle Plan Continue PT/OT Sutures removed Discharge set tentatively for 17 to home with family and HHC Adjusted Bowel program last week Next Team Conference to be held later today-See report for full functional update and POC Will discuss details of discharge with Team at that time. Consult DR Filiberto moncada rash/contact dermatitis vs mild cellulitis-See orders. MARYLOU CYR MD Feb 18, 2017 08:55
--- NOTE | 2017-02-18 10:56 | Physical Therapy Daily Note ---
PT Daily Note-Current Subjective Pt sitting in recliner upon arrival. Pt agrees to PT and is excited to discharge tomorrow. Pain Location: No Pain Reported Mental Status Patient Orientation: Person, Place, Time, Situation Transfers Functional [place] Measure 0=Not Assessed/NA 4=Minimal Assistance 1=Total Assistance 5=Supervision or Setup 2=Maximal Assistance 6=Modified [place] 3=Moderate Assistance 7=Complete IndependenceIRFPAI Quality Coding Scale 6 Independent with activity with or without an assistive device 5 Patient requires set up or clean up by helper. Patient completes activity by themselves 4 Supervision or touching assist (CGA). [place] provide cues , steadying assist 3 The helper provides less than half the effort to complete the activity 2 The helper provides more than half the effort to complete the activity 1 Dependent. The helper does all the effort to complete an activity 7 Patient refused to complete or attempt activity 9 The patient did not perform the activity before the current illness or injury 88 Not attempted due to Medical conditions or safety concerns Scootin Rollin Roll Left to Right (QC): 6 Supine to/from Sit: 6 Sit to/from Stand: 6 Sit to Lying (QC): 6 Sit to Stand (QC): 6 Chair/Itf-gz-Nrkfl Xfer(QC): 6 Bed to/from Chair: 6 Car Transfer (QC): 6 Weight Bearing Right Lower Extremity: Right Weight Bearing/Tolerated Left Lower Extremity: Left Full Weight Bearing Gait Training Does the Patient Walk?: Yes Distance (FIM): 3=150 ft Distance: 300' Walk 10 feet (QC): 6 Walk 50 ft with 2 Turns(QC): 6 Walk 150 ft (QC): 6 Walking 10ft/uneven surface-QC: 6 Gait Level of Assist: 6 Gait Persons Needed: 1 Gait Assistive Device: Cane Small Base Quad Pt needs VC for sequencing & foot placement while ambulating with QC. Pt walks with slower kirsten using QC than FWW. Wheelchair Training Does the Pt Use a Wheelchair?: No Stair Training Stair Training: Handrails/: uses cane #of Steps: 12 1 Step (curb) (QC): 6 4 Steps (QC): 6 12 Steps (QC): 6 Stairs: Pattern: Step to Level of Assist: 6 Treatments Pt transfers from recliner to standing using QC at Mod I. Pt ambulates in hallway using QC at Mod I. Pt completes 3 sets of 4 stairs using QC. Pt able to complete bed mobility, walking across varying surface for at least 10' at Mod I & picking up an object off floor at SBA. Pt uses NuStep for car transfer as well as Ex for 10m at Workload 7. Assessment Current Status: Good Progress Pt has improved with safety and independence of transfers and mobility. Pt needs occasional VC for sequencing with QC. Pt will use QC for short distances until stronger and more proficient, FWW for longer distances. PT Short Term Goals Short Term Goals Time Frame: Feb 13, 2017 Transfers (B,C,W/C) (FIM): 5 (met) Gait (FIM): 2 (met) Gait Distance Comment: 50' Gait Level of Assist: 4 Gait Assistive Device: FWW Wheelchair Distance: 100' PT Intermediate Goals Leaflet Distributor Goals PT Intermediate Goals Time Frame: Feb 27, 2017 Transfers (B,C,W/C) (FIM): 6 Sit to Lying (QC): 6 Lying-Sitting on Side/Bed(QC): 6 Sit to Stand (QC): 6 Rollin Roll Left to Right (QC): 6 Chair/Wod-ic-Izcci Xfer(QC): 6 Car Transfer (QC): 4 Gait (FIM): 5 Distance: 150' Walk 10 feet (QC): 4 Walk 10ft-Uneven Surface(QC): 4 Walk 50ft with 2 Turns (QC): 4 Walk 150 ft (QC): 4 Gait Level of Assist: 5 Gait Assistive Device: FWW Stairs (FIM): 2 # of Steps: 4 1 Step (curb) (QC): 4 4 Steps (QC): 4 Stairs Level Of Assist: 4 PT Plan Problem List Problem List: Activity Tolerance Treatment/Plan Treatment Plan: Continue Plan of Care Treatment Plan: Bed Mobility, Education, Functional Activity Priya, Functional Strength, Group Therapy, Gait, Safety, Therapeutic Exercise, Transfers Treatment Duration: Feb 27, 2017 Frequency: At least 5 of 7 days/Wk (IRF) Estimated Hrs Per Day: 1.5 hours per day Patient and/or Family Agrees t: Yes Safety Risks/Education Patient Education: Gait Training, Correct Positioning, Safety Issues Teaching Recipient: Patient Teaching Methods: Discussion Response to Teaching: Verbalize Understanding Time/GCodes Time In: 900 Time Out: 1000 Total Billed Treatment Time: 60 Total Billed Treatment 1, GT x2 (30m) & FA x2 (30m) ERIN MARLEY ASSOCIATE PROFESSOR OF COUNSELING Feb 18, 2017 10:56
--- NOTE | 2017-02-18 11:19 | Progress Note-Hospitalist ---
Progress Note Progress Notes/Assess & Plan Date Seen 02/18/17 Time Seen by Provider: 11:00 Diagonsis/Assessment & Plan Pt doing well DC tomorrow with her daughter who will stay with her for [address] De Los Santos will see the abrasion lesion right medial ankle AFVSS, pleasant, appears improved RRR w/murmur no changes CTAB Noted 1+ edema ASHWIN's on Assessment: Acute right femur fracture sustained in fall at home s/p repair uncomplicated History of moderate aortic stenosis in 2012 was in process of referral to Dr. Brizuela so stat echo ordered and Dr. Brizuela has seen in consultation but stable Restless leg syndrome Irritable bowel syndrome constipation predominant with post op constipation continues so increasing meds today Post operative anemia due to acute blood loss hgb 8.0 on Venofer Thrombocytopenia source unknown monitor closely Right inner ankle abrasion vs. venous stasis dermatitis Dr De Los Santos to see today Plan: BM regimen Venofer DC Improve diet consumption Kenalog cream DC tomorrow DUNG KEYS DO Feb 18, 2017 11:19
--- NOTE | 2017-02-18 11:34 | Occupational Ther Daily Note ---
OT Current Status-Daily Note Subjective Pt alert, sitting in recliner. Pt agreed to therapy. Pt c/o pain at R inner ankle. Circular area that is reddened and painful to touch, nrsg and physician notified. Mental Status/Objective Patient Orientation: Person, Place, Time, Situation Functional [place] Measure 0=Not Assessed/NA 4=Minimal Assistance 1=Total Assistance 5=Supervision or Setup 2=Maximal Assistance 6=Modified [place] 3=Moderate Assistance 7=Complete [place] ADL-Treatment Functional [place] Measure 0=Not Assessed/NA 4=Minimal Assistance 1=Total Assistance 5=Supervision or Setup 2=Maximal Assistance 6=Modified [place] 3=Moderate Assistance 7=Complete IndependenceIRFPAI Quality Coding Scale 6 Independent with activity with or without an assistive device 5 Patient requires set up or clean up by helper. Patient completes activity by themselves 4 Supervision or touching assist (CGA). [place] provide cues , steadying assist 3 The helper provides less than half the effort to complete the activity 2 The helper provides more than half the effort to complete the activity 1 Dependent. The helper does all the effort to complete an activity 7 Patient refused to complete or attempt activity 9 The patient did not perform the activity before the current illness or injury 88 Not attempted due to Medical conditions or safety concerns Eating (FIM): 6 (Pt able to complete own set up and use regular utensils.) Eating (QC): 6 Grooming (FIM): 6 (Sitting at sink, pt is able to complete own grooming.) Oral Hygiene (QC): 6 Bathing (FIM): 6 (Using grabbar, shower bench, hand held shower and long handle sponge pt is able to complete on own.) Bathing Location: L Arm, R Arm, L Upper Leg, R Upper Leg, L Lower Leg ( including foot), R Lower Leg (including foot), Chest, Abdomen, Buttocks, Perineal Area Shower/Bathe Self (QC): 6 Upper Body (FIM): 6 (Using FWW, pt able to retrieve clothing and don/doff by self.) Upper Body Dressing (QC): 6 Lower Body Dressing (FIM): 6 (Pt able to retrieve clothing with FWW and don/ doff using dressing stick and sock aide by self.) Lower Body Dressing (QC): 6 On/Off Footwear (QC): 6 Toileting (FIM): 6 (Using FWW and grabbars pt is able to complete by self.) Toileting Hygiene (QC): 6 Transfers (B, C, W/C) (FIM): 6 (Using FWW, pt is able to complete.) Toilet/Commode Transfer (FIM): 6 (Using grabbar and FWW, pt is able to complete by self.) Toilet Transfer (QC): 6 Shower Transfer(FIM): 6 (Using grabbar, shower bench and FWW pt is able to complete transfer.) Other Treatment Pt ambulated using FWW to [facility] laundry room. Pt able to able to place clothes in washer and start washer using FWW for stability, no LOB noted. Pt then ambulated to therapy gym using FWW. Pt completed activity using geologic technician to bulk picker items off of floor safely, no LOB noted. Pt then completed arm bike for 15 min at 30 blackburn resistance to increase strength and activity tolerance for daily functional tasks. DOWNING and pt went over home safety education. Pt was able to describe home and what is available to function at home safely. PT took over care of pt in therapy gym. All needs met in room. OT Short Term Goals Short Term Goals Time Frame: Feb 13, 2017 Eating(FIM): 5 Grooming(FIM): 5 Bathing(FIM): 4 Upper Body Dressing(FIM): 5 Lower Body Dressing(FIM): 4 Toileting(FIM): 5 Transfers (B,C,W/C) (FIM): 5 (met) Toilet/Commode Transfer(FIM): 5 Shower Transfer(FIM): 4 Additional Short Term Goals: 1-Demonstrate ADL Tasks, 2-Verbalize Understanding , 3-ImproveStrength/Priya 1=Demonstrate adherence to instructed precautions during ADL tasks. 2=Patient will verbalize/demonstrate understanding of assistive devices/ modifications for ADL. 3=Patient will improve strength/tolerance for activity to enable patient to perform ADL's. OT Warping Mill Operator Goals Group Home Goals Time Frame: Feb 20, 2017 Eating (FIM): 6 (met-02/18/2017) Eating (QC): 6 (met-02/18/2017) Groomin (met-02/18/2017) Oral Hygiene (QC): 5 (met-02/18/2017) Bathing(FIM): 5 (met-02/18/2017) Shower/Bathe Self (QC): 5 (02/18/2017) Upper Body Dressing(FIM): 6 (02/18/2017) Upper Body Dressing (QC): 5 (02/18/2017) Lower Body Dressing(FIM): 5 (02/18/2017) Lower Body Dressing (QC): 5 (02/18/2017) On/Off Footwear (QC): 5 (02/18/2017) Toileting(FIM): 6 (02/18/2017) Toileting Hygiene (QC): 6 (02/18/2017) Transfers (B,C,W/C) (FIM): 6 (02/18/2017) Toilet/Commode Transfer(FIM): 6 (02/18/2017) Toilet/Commode Transfer (QC): 6 (02/18/2017) Shower Transfer(FIM): 5 (02/18/2017) Additional Goals: 1-Demonstrate ADL Tasks, 2-Verbalize Understanding, 3- ImproveStrength/Priya 1=Demonstrate adherence to instructed precautions during ADL tasks. 2=Patient will verbalize/demonstrate understanding of assistive devices/ modifications for ADL. 3=Patient will improve strength/tolerance for activity to enable patient to perform ADL's. OT Education/Plan Discharge Recommendations Plan/Recommendations: Continue POC Therapy D/C Recommendations: Occupational Therapy Home Care Equpiment Recommendations-D/C: Hip Kit Treatment Plan/Plan of Care Patient would benefit from OT for education, treatment and training to promote independence in ADL's, mobility, safety and/or upper extremity function for ADL' s. Plan of Care: ADL Retraining, Functional Mobility, UE Funct Exercise/Act Treatment Duration: Feb 20, 2017 Frequency: At least 5 of 7 days/Wk (IRF) Estimated Hrs Per Day: 1.5 hours per day Agreement: Yes Rehab Potential: Good Time/GCodes Start Time: 07:30 Stop Time: 09:00 Total Time Billed (hr/min): 60 Billed Treatment Time 1 visit-ADL 3 (45 min) FA 2 (30 min) EX 1 (15 min) KEITH GRANADOS Feb 18, 2017 11:34
--- NOTE | 2017-02-18 14:59 | Physical Therapy Daily Note ---
PT Daily Note-Current Subjective Pt sitting in recliner upon arrival. Pt agrees to PT. Pain Location: No Pain Reported Mental Status Patient Orientation: Person, Place, Time, Situation Transfers Functional [place] Measure 0=Not Assessed/NA 4=Minimal Assistance 1=Total Assistance 5=Supervision or Setup 2=Maximal Assistance 6=Modified [place] 3=Moderate Assistance 7=Complete IndependenceIRFPAI Quality Coding Scale 6 Independent with activity with or without an assistive device 5 Patient requires set up or clean up by helper. Patient completes activity by themselves 4 Supervision or touching assist (CGA). Rives provide cues , steadying assist 3 The helper provides less than half the effort to complete the activity 2 The helper provides more than half the effort to complete the activity 1 Dependent. The helper does all the effort to complete an activity 7 Patient refused to complete or attempt activity 9 The patient did not perform the activity before the current illness or injury 88 Not attempted due to Medical conditions or safety concerns Scootin Rollin Roll Left to Right (QC): 6 Supine to/from Sit: 6 Sit to/from Stand: 6 Sit to Lying (QC): 6 Sit to Stand (QC): 6 Weight Bearing Right Lower Extremity: Right Weight Bearing/Tolerated Left Lower Extremity: Left Full Weight Bearing Gait Training Does the Patient Walk?: Yes Distance (FIM): 3=150 ft Distance: 250' Walk 10 feet (QC): 6 Walk 50 ft with 2 Turns(QC): 6 Walk 150 ft (QC): 6 Gait Level of Assist: 6 Gait Persons Needed: 1 Gait Assistive Device: FWW Pt walked with FWW due to fatigue this afternoon. Wheelchair Training Does the Pt Use a Wheelchair?: No Balance Picking up an Object (QC): 5 Exercises NuStep Minutes: 15 NuStep Workload: 7 Treatments Pt transfers from recliner to standing at Mod I using FWW. Pt ambulates using FWW at Mod I. Pt uses NuStep for 15m at Workload 7. Pt rests shortly than ambulates back to room to rest. Pt transfers to Supine in bed to rest at Mod I. Pt has all needs met at end of tx. Assessment Current Status: Good Progress Pt has improved with mobility & transfers during tx. PT Short Term Goals Short Term Goals Time Frame: Feb 13, 2017 Transfers (B,C,W/C) (FIM): 5 (met) Gait (FIM): 2 (met) Gait Distance Comment: 50' Gait Level of Assist: 4 Gait Assistive Device: FWW Wheelchair Distance: 100' PT Fpc Goals Fpc Goals PT Fpc Goals Time Frame: Feb 27, 2017 Transfers (B,C,W/C) (FIM): 6 Sit to Lying (QC): 6 Lying-Sitting on Side/Bed(QC): 6 Sit to Stand (QC): 6 Rollin Roll Left to Right (QC): 6 Chair/Sot-sn-Jyqsx Xfer(QC): 6 Car Transfer (QC): 4 Gait (FIM): 5 Distance: 150' Walk 10 feet (QC): 4 Walk 10ft-Uneven Surface(QC): 4 Walk 50ft with 2 Turns (QC): 4 Walk 150 ft (QC): 4 Gait Level of Assist: 5 Gait Assistive Device: FWW Stairs (FIM): 2 # of Steps: 4 1 Step (curb) (QC): 4 4 Steps (QC): 4 Stairs Level Of Assist: 4 PT Plan Problem List Problem List: Activity Tolerance Treatment/Plan Treatment Plan: Continue Plan of Care Treatment Plan: Bed Mobility, Education, Functional Activity Priya, Functional Strength, Group Therapy, Gait, Safety, Therapeutic Exercise, Transfers Treatment Duration: Feb 27, 2017 Frequency: At least 5 of 7 days/Wk (IRF) Estimated Hrs Per Day: 1.5 hours per day Patient and/or Family Agrees t: Yes Safety Risks/Education Patient Education: Correct Positioning, Safety Issues Teaching Recipient: Patient Teaching Methods: Discussion Response to Teaching: Verbalize Understanding Time/GCodes Time In: 1300 Time Out: 1330 Total Billed Treatment Time: 30 Total Billed Treatment 1, EX (20m) & GT (10m) ERIN MARLEY NUTRITION REPRESENTATIVE Feb 18, 2017 14:59
[2017-02-18] MEDS: RIVAROXABAN 10 MG TABLET (XARELTO) PO SCH (18:04)
[2017-02-18 18:30] VITALS: BP 118/84
--- NOTE | 2017-02-18 18:38 | Wound Care Progress Note ---
Subjective Subjective Subjective/Events-last exam 81 year old female with area of erythema and tenderness of R medial malleolus. There is no related skin injury. Minimal tenderness to direct palpation. Walks with minimal pain. Objective Exam Last Set of Vital Signs Vital Signs Date Time Temp Pulse Resp B/P (MAP) Pulse Ox O2 Delivery O2 Flow Rate FiO2 02/18/17 09:07 Room Air 02/18/17 07:13 74 97 20 02/18/17 05:20 98.1 20 124/68 (86) Capillary Refill : I&O Intake and Output 02/18/17 00:00 Intake Total 1290 ml Balance 1290 ml Intake Oral 1290 ml # Voids 5 # Bowel Movements 3 MINGO CANO MD Feb 18, 2017 18:38
[2017-02-18] MEDS ORDERED: RIVA10TA PO (19:50)
[2017-02-18] MEDS ORDERED: HYDR-3820 PO (19:50)
[2017-02-18] MEDS ORDERED: TR1C15 TP (19:50)
[2017-02-18] MEDS: rOPINIRole 1 MG (REQUIP) TABLET PO SCH (20:30)
[2017-02-18] MEDS: POLYETHYLENE GLYCOL 17 GM (MIRALAX) PACK PO SCH (20:31)
[2017-02-19 05:06] VITALS: BP 118/70
[2017-02-19] MEDS: PANTOPRAZOLE 20 MG TABLET (PROTONIX) PO SCH (06:18)
[2017-02-19] MEDS: CALCIUM CARB + VIT D 600 MG (CALCARB + D) TAB PO SCH (06:18)
[2017-02-19] MEDS: MULTIVIT W/MINERALS TAB (THERAGRAN M) PO SCH (06:18)
[2017-02-19] MEDS: LACTULOSE SYRUP 10GM/15ML (ENULOSE) 30ML UDC PO SCH (07:12)
[2017-02-19] MEDS: MAGNESIUM OXIDE (MAG-OX)400 MG TAB PO SCH (07:36)
[2017-02-19] MEDS: TRIAMCINOLONE 0.1% CR (KENALOG) 80 GM TUBE TP SCH (07:36)
[2017-02-19] MEDS: DOCUSATE SODIUM 100 MG (COLACE) CAP PO SCH (07:36)
--- NOTE | 2017-02-19 08:25 | Therapy Team Discharge Summary ---
Therapy Discharge Summary Discharge Recommendations Date of Discharge 02-19-17 Therapy D/C Recommendations: Home w/ Family Support, Occupational Therapy Home Care Occupational Therapy Pt. seen by occupational therapy to increase overall strength and independence with daily tasks. Pt. has met all goals. Pt. is able to bathe, dress, toilet, and groom with mod I. Pt. is discharging home with daughter support today. Pt. has all needed equipment. Would benefit from continued skilled treatment to make sure pt. is safe and independent in home environment. Decreased Activ Tolerance, Decreased UE Strength, Dependent Transfers, Impaired Bed Mobility, Impaired Funct Balance, Impaired I ADL's, Impaired Self-Care Skills, Restricted Funct UE ROM PT Plant Anatomy Teacher Goals Residential Goals PT Residential Goals Time Frame: Feb 27, 2017 Transfers (B,C,W/C) (FIM): 6 Roll Left to Right (QC): 6 Sit to Lying (QC): 6 Lying-Sitting on Side/Bed(QC): 6 Sit to Stand (QC): 6 Chair/Kxx-fr-Xqswx Xfer(QC): 6 Car Transfer (QC): 4 Gait (FIM): 5 Distance: 150' Walk 10 feet (QC): 4 Walk 10ft-Uneven Surface(QC): 4 Walk 50ft with 2 Turns (QC): 4 Walk 150 ft (QC): 4 Gait Level of Assist: 5 Gait Assistive Device: FWW Stairs (FIM): 2 # of Steps: 4 1 Step (curb) (QC): 4 4 Steps (QC): 4 Stairs Level Of Assist: 4 OT Plant Anatomy Teacher Goals Plant Anatomy Teacher Goals Time Frame: Feb 20, 2017 Eating (FIM): 6 (met-02/18/2017) Eating (QC): 6 (met-02/18/2017) Oral Hygiene (QC): 5 (met-02/18/2017) Grooming(FIM): 6 (met-02/18/2017) Bathing(FIM): 5 (met-02/18/2017) Shower/Bathe Self (QC): 5 (met-02/18/2017) Upper Body Dressing(FIM): 6 (met-02/18/2017) Upper Body Dressing (QC): 5 (met-02/18/2017) Lower Body Dressing(FIM): 5 (met-02/18/2017) Lower Body Dressing (QC): 5 (met-02/18/2017) On/Off Footwear (QC): 5 (met02/18/2017) Toileting(FIM): 6 (02/18/2017) Toileting Hygiene (QC): 6 (02/18/2017) Transfers (B,C,W/C) (FIM): 6 (02/18/2017) Toilet/Commode Transfer(FIM): 6 (02/18/2017) Toilet/Commode Transfer (QC): 6 (met02/18/2017) Shower Transfer(FIM): 5 (met-02/18/2017) Additional Goals: 1-Demonstrate ADL Tasks, 2-Verbalize Understanding, 3- ImproveStrength/Priya 1=Demonstrate adherence to instructed precautions during ADL tasks. 2=Patient will verbalize/demonstrate understanding of assistive devices/ modifications for ADL. 3=Patient will improve strength/tolerance for activity to enable patient to perform ADL's. JOHN MARRERO OT Feb 19, 2017 08:25
--- NOTE | 2017-02-19 09:09 | Therapy Team Discharge Summary ---
Therapy Discharge Summary Discharge Recommendations Date of Discharge Therapy D/C Recommendations: Home w/ Family Support, Occupational Therapy Home Care Physical Therapy Patient came to rehab following a right hip fracture. Upon evaluation patient performed supine to sit with max assist because she needs assist with her right leg and her trunk to sit, transfers are CGA, ambulates 15' with a rolling walker with CGA and wheelchair follow, no stairs. Patient has been performing bed mobility and transfer training, balance and endurance training, functional strengthening, stair training, gait training, and education. Patient has made good progress and has met all of her senior care goals. Now, patient performs bed mobility and transfers with mod I, ambulates 300' with a quad cane with mod I ( including 50' with at least 2 turns of 90 degrees and 10' over an uneven surface ), and can go up and down 12 steps using a cane with mod I, and can perform a car transfer with mod I. Patient is being discharged from this facility today and will be discharged from PT at this time. Occupational Therapy Decreased Activ Tolerance, Decreased UE Strength, Dependent Transfers, Impaired Bed Mobility, Impaired Funct Balance, Impaired I ADL's, Impaired Self-Care Skills, Restricted Funct UE ROM PT Skilled Nursing Goals Clark Driver Goals PT Skilled Nursing Goals Time Frame: Feb 27, 2017 Transfers (B,C,W/C) (FIM): 6 Roll Left to Right (QC): 6 Sit to Lying (QC): 6 Lying-Sitting on Side/Bed(QC): 6 Sit to Stand (QC): 6 Chair/Rvr-jh-Ahhfa Xfer(QC): 6 Car Transfer (QC): 4 Gait (FIM): 5 Distance: 150' Walk 10 feet (QC): 4 Walk 10ft-Uneven Surface(QC): 4 Walk 50ft with 2 Turns (QC): 4 Walk 150 ft (QC): 4 Gait Level of Assist: 5 Gait Assistive Device: FWW Stairs (FIM): 2 # of Steps: 4 1 Step (curb) (QC): 4 4 Steps (QC): 4 Stairs Level Of Assist: 4 OT Clark Driver Goals Skilled Nursing Goals Time Frame: Feb 20, 2017 Eating (FIM): 6 (met-02/18/2017) Eating (QC): 6 (met-02/18/2017) Oral Hygiene (QC): 5 (met-02/18/2017) Grooming(FIM): 6 (02/18/2017) Bathing(FIM): 5 (02/18/2017) Shower/Bathe Self (QC): 5 (02/18/2017) Upper Body Dressing(FIM): 6 (02/18/2017) Upper Body Dressing (QC): 5 (02/18/2017) Lower Body Dressing(FIM): 5 (02/18/2017) Lower Body Dressing (QC): 5 (02/18/2017) On/Off Footwear (QC): 5 (02/18/2017) Toileting(FIM): 6 (02/18/2017) Toileting Hygiene (QC): 6 (02/18/2017) Transfers (B,C,W/C) (FIM): 6 (02/18/2017) Toilet/Commode Transfer(FIM): 6 (02/18/2017) Toilet/Commode Transfer (QC): 6 (02/18/2017) Shower Transfer(FIM): 5 (02/18/2017) Additional Goals: 1-Demonstrate ADL Tasks, 2-Verbalize Understanding, 3- ImproveStrength/Priya 1=Demonstrate adherence to instructed precautions during ADL tasks. 2=Patient will verbalize/demonstrate understanding of assistive devices/ modifications for ADL. 3=Patient will improve strength/tolerance for activity to enable patient to perform ADL's. ANNAMARIA GARCIA PT Feb 19, 2017 09:09
--- NOTE | 2017-02-19 12:04 | PM & R (SOAP) Progress Note ---
Subjective Time Seen by Provider: 09:30 Subjective/Events-last exam Patient discharged to home with her daughter and [facility] today Discussed case with DR De Los Santos yesterday.Triamcinilone cream continues and patient will have f/u with DR Mcintosh PCP re that,Discussed case with RN. Review of Systems mildly tender patch as per above rt ankle Objective Exam Last Set of Vital Signs Vital Signs Date Time Temp Pulse Resp B/P (MAP) Pulse Ox O2 Delivery O2 Flow Rate FiO2 02/19/17 08:00 Room Air 02/19/17 05:06 99.0 100 18 118/70 (86) 96 02/18/17 07:13 20 Capillary Refill : I&O Intake and Output 02/19/17 00:00 Intake Total 1660 ml Balance 1660 ml Intake Oral 1660 ml # Voids 6 # Bowel Movements 1 General: Alert, Oriented X3, Cooperative, No Acute Distress HEENT: Atraumatic, PERRLA, EOMI, Mucous Memb Moist/[place] Neck: Supple, No JVD Lungs: Clear to Auscultation Heart: Regular Rate Abdomen: Normal Bowel Sounds, Soft, No Tenderness Extremities: Other (abrasion rt ankle) Skin: Other (rash as per above vs mild cellulitis) Neuro: Other (Strength improving with decreased pain) Assessment/Plan Assessment Rt femur frx s/p repair DR Wang WBAT Postop anmeia on replacement Trrombocytopenia improved IBS with constipation improved rash rt ankle Plan Home today with daughter and C F/U with PCP and ortho See orders.. MARYLOU CYR MD Feb 19, 2017 12:04
== END 2017-02-19 09:30 | disposition home health service (06) | DRG 560 ==
PROVIDERS: ADMIT Physical Medicine & Rehabilitation; ATTEND Physical Medicine & Rehabilitation
DX: S72.011D Unspecified intracapsular fracture of right femur, subsequent encounter for closed fracture with routine healing (principal); Z96.641 Presence of right artificial hip joint; I35.0 Nonrheumatic aortic (valve) stenosis; D62 Acute posthemorrhagic anemia; E83.42 Hypomagnesemia; D69.6 Thrombocytopenia, unspecified; M54.9 Dorsalgia, unspecified; K21.9 Gastro-esophageal reflux disease without esophagitis; K58.9 Irritable bowel syndrome, unspecified; K59.00 Constipation, unspecified; G25.81 Restless legs syndrome; R21 Rash and other nonspecific skin eruption; Z79.01 Long term (current) use of anticoagulants; Z99.81 Dependence on supplemental oxygen
CPT/HCPCS: 36415; 80048; 83735; 85025; 85027; 94640; 94760

== ENCOUNTER 2017-04-17 17:14 | Inpatient (IN) | payer MEDICARE ==
[~2017-04-17] VITALS: Ht 160 cm; Wt 62.7 kg
[~2017-04-17 17:14] MED LIST changes: +ETOMIDATE IV SOLN 20 MG/10 ML VIAL ONE; +HYDR-3820 PO; +MIDAZOLAM 5 MG/5 ML (VERSED) VIAL ONE; +RIVA10TA PO; +SUCCINYLCHOLINE INJ 100 MG/5 ML SYR ONE; +TR1C15 TP
--- OUTSIDE RECORDS SUMMARY | 2017-04-17 17:26 | XMS REPORT | Continuity of Care Document ---
Author Author [facility] [address] Organization [facility] [address] Address Unknown Phone Unavailable Allergies Active Description Code Type Severity Reaction Onset Reported/Identified Relationship to Patient Clinical Status Yes NKANo Known Allergies NKA Miscellaneous Allergy Unknown N/A 10/06/2005 Yes No Known Drug Allergies [id number] Drug Allergy Unknown N/A 02/04/2017 Medications There is no data. Problems Date Dx Coded Attending Type Code Diagnosis Diagnosed By 12/07/2012 SCOT HUNTER FACC, LAYLA GONZALEZ CCDS Ot 424.1 AORTIC VALVE DISORDER 12/07/2012 SCOT HUNTER FACC, LAYLA GONZALEZ CCDS Ot 530.81 ESOPHAGEAL REFLUX 12/07/2012 LAYLA ELLISON MD, FACC, FACP CCDS Ot 786.09 RESPIRATORY ABNORM NEC 12/07/2012 SCOT HUNTER FACC, LAYLA DAVILAP CCDS Ot 786.59 CHEST PAIN NEC 12/07/2012 SCOT HUNTER FACC, LAYLA [facility] CCDS Ot V58.69 OTH MED,LT,CURRENT USE 11/14/2013 MADY HAYNES MD Ot 721.3 LUMBOSACRAL SPONDYLOSIS 11/14/2013 MADY HAYNES MD Ot 722.52 LUMB/LUMBOSAC DISC DEGEN 11/14/2013 MADY HAYNES MD Ot V58.69 OTH MED,LT,CURRENT USE 01/31/2014 KEYS DO, DUNG Ot V76.12 01/31/2014 KEYS DO, DUNG Ot V76.12 02/06/2014 COLLNIS CARDOSO MD Ot 211.3 BENIGN NEOPLASM LG [...] 780.4 DIZZINESS AND GIDDINESS 02/11/2016 SCOT HUNTER [facility], LAYLA [facility] CCDS Ot 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 02/11/2016 SCOT HUNTER FACC, [facility] CCDS Ot 397.0 TRICUSPID VALVE DISEASE 02/11/2016 SCOT HUNTER [facility], [facility] CCDS Ot 786.59 CHEST PAIN NEC 02/11/2016 LUDMILA DO DUNG Ot V76.12 OTH SCREEN MAMMO-MALIGN NEOPLASM OF FRANC 02/11/2016 KEYS DO, DNUG Ot 285.9 ANEMIA NOS 02/11/2016 KEYS DO, [...] R13.10 DYSPHAGIA, UNSPECIFIED 03/25/2016 JANAE HUNTER, COLLINS Gutierrez Ot K22.2 ESOPHAGEAL OBSTRUCTION 03/25/2016 JANAE HUNTER, COLLINS Gutierrez Ot K29.70 GASTRITIS, UNSPECIFIED, WITHOUT BLEEDING 03/25/2016 JANAE HUNTER, COLLINS Gutierrez Ot K44.9 DIAPHRAGMATIC HERNIA WITHOUT OBSTRUCTION 03/25/2016 JANAE HUNTER, COLLINS M Ot R13.10 DYSPHAGIA, UNSPECIFIED 03/27/2016 JANAE HUNTER, COLLINS Gutierrez Ot K22.2 ESOPHAGEAL OBSTRUCTION 03/27/2016 JANAE HUNTER, COLLINS M Ot K29.70 GASTRITIS, UNSPECIFIED, WITHOUT BLEEDING 03/27/2016 JANAE HUNTER, COLLINS Gutierrez Ot K44.9 DIAPHRAGMATIC HERNIA WITHOUT OBSTRUCTION 03/27/2016 JANAE HUNTRE, COLLINS Gutierrez Ot R13.10 DYSPHAGIA, UNSPECIFIED 11/06/2016 JANAE HUNTER, COLLINS Gutierrez Ot R19.4 CHANGE IN BOWEL HABIT 11/06/2016 JANAE HUNTER, COLLINS Gutierrez Ot Z01.818 ENCOUNTER [...] CARDOSO MD Ot K63.5 POLYP OF COLON 02/06/2017 ESTELA MD, MOOKIE T Ot D62 ACUTE POSTHEMORRHAGIC ANEMIA 02/06/2017 MOOKIE PALMER MD, Ot D69.6 THROMBOCYTOPENIA, UNSPECIFIED 02/06/2017 MOOKIE PALMER MD, Ot G25.81 RESTLESS LEGS SYNDROME 02/06/2017 MOOKIE PALMER MD, Ot I35.0 NONRHEUMATIC AORTIC (VALVE) STENOSIS 02/06/2017 MOOKIE PALMER MD, Ot K21.9 GASTRO-ESOPHAGEAL REFLUX DISEASE WITHOUT 02/06/2017 MOOKIE PALMER MD, Ot K58.1 IRRITABLE BOWEL SYNDROME WITH CONSTIPATI 02/06/2017 MOOKIE PALMER MD, Ot R51 HEADACHE 02/06/2017 MOOKIE PALMER MD, Ot S72.011A UNSP INTRACAPSULAR FRACTURE OF RIGHT FEM 02/06/2017 MOOKIE PALMER MD, Ot W01.10XA FALL SAME LEV FROM SLIP/TRIP W STRIKE AG 02/06/2017 MOOKIE PALMER MD, Ot Y92.[address] IN SINGLE-FAMILY (PRIVATE) HO 02/06/2017 MOOKIE PALMER MD, Ot Y99.8 OTHER EXTERNAL CAUSE STATUS 02/10/2017 MARYLOU CYR MD Ot S72.011D UNSP INTRACAP FX RIGHT FEMUR, SUBS FOR C 02/10/2017 MARYLOU CYR MD Ot Z96.641 PRESENCE OF RIGHT ARTIFICIAL HIP JOINT 02/10/2017 MARYLOU CYR MD Ot S72.011D UNSP INTRACAP FX RIGHT FEMUR, SUBS FOR C 02/10/2017 MARYLOU CYR MD Ot Z96.641 PRESENCE OF RIGHT ARTIFICIAL HIP JOINT 02/10/2017 MARYLOU CYR MD Ot S72.011D UNSP INTRACAP FX RIGHT FEMUR, SUBS FOR C 02/10/2017 MARYLOU CYR MD Ot Z96.641 PRESENCE OF RIGHT ARTIFICIAL HIP JOINT 02/11/2017 MARYLOU CYR MD Ot D62 ACUTE POSTHEMORRHAGIC ANEMIA 02/11/2017 MARYLOU CYR MD Ot D69.6 THROMBOCYTOPENIA, UNSPECIFIED 02/11/2017 MARYLOU CYR MD Ot E83.42 HYPOMAGNESEMIA 02/11/2017 MARYLOU CYR MD Ot G25.81 RESTLESS LEGS SYNDROME 02/11/2017 MARYLOU CYR MD Ot I35.0 NONRHEUMATIC AORTIC (VALVE) STENOSIS 02/11/2017 CYR MD, MARYLOU E Ot K21.9 GASTRO-ESOPHAGEAL REFLUX DISEASE WITHOUT 02/11/2017 GER HUNTER MARYLOU E Ot K58.9 IRRITABLE BOWEL SYNDROME WITHOUT DIARRHE 02/11/2017 ROSY CYR MDIC E Ot K59.00 CONSTIPATION, UNSPECIFIED 02/11/2017 ROSY CYR MDIC E Ot M54.9 DORSALGIA, UNSPECIFIED 02/11/2017 ROSY CYR MDIC E Ot S72.011D UNSP INTRACAP FX RIGHT FEMUR, SUBS FOR C 02/11/2017 MARYLOU CYR MD E Ot Z79.01 ASSISTED (CURRENT) USE OF ANTICOAGULANT 02/11/2017 MARYLOU CYR MD E Ot Z96.641 PRESENCE OF RIGHT ARTIFICIAL HIP JOINT 02/11/2017 MARYLOU CYR MD E Ot Z99.81 DEPENDENCE ON SUPPLEMENTAL OXYGEN 02/12/2017 MARYLOU CYR MD E Ot D62 ACUTE POSTHEMORRHAGIC ANEMIA 02/12/2017 MARYLOU CYR MD E Ot D69.6 THROMBOCYTOPENIA, UNSPECIFIED 02/12/2017 ROSY CYR MDIC E Ot E83.42 HYPOMAGNESEMIA 02/12/2017 GER HUNTER MARYLOU E Ot G25.81 RESTLESS LEGS SYNDROME 02/12/2017 GRE HUNTER MARYLOU E Ot I35.0 NONRHEUMATIC AORTIC (VALVE) STENOSIS 02/12/2017 ROSY CYR MDIC E Ot K21.9 GASTRO-ESOPHAGEAL REFLUX DISEASE WITHOUT 02/12/2017 GER HUNTER MARYLOU E Ot K58.9 IRRITABLE BOWEL SYNDROME WITHOUT DIARRHE 02/12/2017 ROSY CYR MDIC E Ot K59.00 CONSTIPATION, UNSPECIFIED 02/12/2017 ROSY CYR MDIC E Ot M54.9 DORSALGIA, UNSPECIFIED 02/12/2017 GER HUNTER MARYLOU E Ot S72.011D UNSP INTRACAP FX RIGHT FEMUR, SUBS FOR C 02/12/2017 MARYLOU CYR MD E Ot 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 02/12/2017 MARYLOU CYR MD E Ot Z96.641 PRESENCE OF RIGHT ARTIFICIAL HIP JOINT 02/12/2017 MARYLOU CYR MD E Ot Z99.81 DEPENDENCE ON SUPPLEMENTAL OXYGEN 02/16/2017 MARYLOU CYR MD E Ot D62 ACUTE POSTHEMORRHAGIC ANEMIA 02/16/2017 GER HUNTER MARYLOU E Ot D69.6 THROMBOCYTOPENIA, UNSPECIFIED 02/16/2017 MARYLOU CYR MD E Ot E83.42 HYPOMAGNESEMIA 02/16/2017 MARYLOU CYR MD E Ot G25.81 RESTLESS LEGS SYNDROME 02/16/2017 MARYLOU CYR MD E Ot I35.0 NONRHEUMATIC AORTIC (VALVE) STENOSIS 02/16/2017 MARYLOU CYR MD E Ot K21.9 GASTRO-ESOPHAGEAL REFLUX DISEASE WITHOUT 02/16/2017 MARYLOU CYR MD E Ot K58.9 IRRITABLE BOWEL SYNDROME WITHOUT DIARRHE 02/16/2017 MARYLOU CYR MD E Ot K59.00 CONSTIPATION, UNSPECIFIED 02/16/2017 MARYLOU CYR MD E Ot M54.9 DORSALGIA, UNSPECIFIED 02/16/2017 MARYLOU CYR MD E Ot S72.011D UNSP INTRACAP FX RIGHT FEMUR, SUBS FOR C 02/16/2017 MARYLOU CYR MD E Ot Z79.01 ASSISTED (CURRENT) USE OF ANTICOAGULANT 02/16/2017 MARYLOU CYR MD E Ot Z96.641 PRESENCE OF RIGHT ARTIFICIAL HIP JOINT 02/16/2017 MARYLOU CYR MD E Ot Z99.81 DEPENDENCE ON SUPPLEMENTAL OXYGEN 02/18/2017 MARYLOU CYR MD E Ot D62 ACUTE POSTHEMORRHAGIC ANEMIA 02/18/2017 MARYLOU CYR MD E Ot D69.6 THROMBOCYTOPENIA, UNSPECIFIED 02/18/2017 MARYLOU CYR MD E Ot E83.42 HYPOMAGNESEMIA 02/18/2017 MARYLOU CYR MD E Ot G25.81 RESTLESS LEGS SYNDROME 02/18/2017 MARYLOU CYR MD E Ot I35.0 NONRHEUMATIC AORTIC (VALVE) STENOSIS 02/18/2017 MARYLOU CYR MD Ot K21.9 GASTRO-ESOPHAGEAL REFLUX DISEASE WITHOUT 02/18/2017 MARYLOU CYR MD E Ot K58.9 IRRITABLE BOWEL SYNDROME WITHOUT DIARRHE 02/18/2017 MARYLOU CYR MD E Ot K59.00 CONSTIPATION, UNSPECIFIED 02/18/2017 MARYLOU CYR MD E Ot M54.9 DORSALGIA, UNSPECIFIED 02/18/2017 MARYLOU CYR MD E Ot S72.011D UNSP INTRACAP FX RIGHT FEMUR, SUBS FOR C 02/18/2017 MARYLOU CYR MD Ot 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 02/18/2017 MARYLOU CYR MD Ot Z96.641 PRESENCE OF RIGHT ARTIFICIAL HIP JOINT 02/18/2017 ROSY CYR MDIC E Ot Z99.81 DEPENDENCE ON SUPPLEMENTAL OXYGEN 02/19/2017 MARYLOU CYR MD E Ot D62 ACUTE POSTHEMORRHAGIC ANEMIA 02/19/2017 MARYLOU CYR MD E Ot D69.6 THROMBOCYTOPENIA, UNSPECIFIED 02/19/2017 MARYLOU CYR MD E Ot E83.42 HYPOMAGNESEMIA 02/19/2017 MARYLOU CYR MD E Ot G25.81 RESTLESS LEGS SYNDROME 02/19/2017 ROSY CYR MDIC E Ot I35.0 NONRHEUMATIC AORTIC (VALVE) STENOSIS 02/19/2017 MARYLOU CYR MD E Ot K21.9 GASTRO-ESOPHAGEAL REFLUX DISEASE WITHOUT 02/19/2017 MARYLOU CYR MD E Ot K58.9 IRRITABLE BOWEL SYNDROME WITHOUT DIARRHE 02/19/2017 MARYLOU CYR MD E Ot K59.00 CONSTIPATION, UNSPECIFIED 02/19/2017 MARYLOU CYR MD E Ot M54.9 DORSALGIA, UNSPECIFIED 02/19/2017 MARYLOU CYR MD E Ot S72.011D UNSP INTRACAP FX RIGHT FEMUR, SUBS FOR C 02/19/2017 MARYLOU CYR MD E Ot Z79.01 ASSISTED (CURRENT) USE OF ANTICOAGULANT 02/19/2017 MARYLOU CYR MD E Ot Z96.641 PRESENCE OF RIGHT ARTIFICIAL HIP JOINT 02/19/2017 ROSY CYR MDIC E Ot Z99.81 DEPENDENCE ON SUPPLEMENTAL OXYGEN 02/19/2017 MARYLOU CYR MD E Ot D62 ACUTE POSTHEMORRHAGIC ANEMIA 02/19/2017 MARYLOU CYR MD E Ot D69.6 THROMBOCYTOPENIA, UNSPECIFIED 02/19/2017 MARYLOU CYR MD E Ot E83.42 HYPOMAGNESEMIA 02/19/2017 MARYLOU CYR MD E Ot G25.81 RESTLESS LEGS SYNDROME 02/19/2017 MARYLOU CYR MD E Ot I35.0 NONRHEUMATIC AORTIC (VALVE) STENOSIS 02/19/2017 MARYLOU CYR MD E Ot K21.9 GASTRO-ESOPHAGEAL REFLUX DISEASE WITHOUT 02/19/2017 MARYLOU CYR MD E Ot K58.9 IRRITABLE BOWEL SYNDROME WITHOUT DIARRHE 02/19/2017 MARYLOU CYR MD E Ot K59.00 CONSTIPATION, UNSPECIFIED 02/19/2017 MARYLOU CYR MD E Ot M54.9 DORSALGIA, UNSPECIFIED 02/19/2017 MARYLOU CYR MD, Ot R21 RASH AND OTHER NONSPECIFIC SKIN ERUPTION 02/19/2017 MARYLOU CYR MD, Ot S72.011D UNSP INTRACAP FX RIGHT FEMUR, SUBS FOR C 02/19/2017 MARYLOU CYR MD, Ot 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 02/19/2017 MARYLOU CYR MD, Ot Z96.641 PRESENCE OF RIGHT ARTIFICIAL HIP JOINT 02/19/2017 MARYLOU CYR MD, Ot Z99.81 DEPENDENCE ON SUPPLEMENTAL OXYGEN 04/10/2017 MOOKIE PALMER MD, Ot Z47.1 AFTERCARE FOLLOWING JOINT REPLACEMENT PIMENTEL 04/10/2017 MOOKIE PALMER MD, Ot Z96.641 PRESENCE OF RIGHT ARTIFICIAL HIP JOINT Procedures Code Description Performed By Performed On [id number] REPLACE R HIP JT W METAL ON POLY, UNCEME 02/04/2017 Results Test Result Range Complete blood count [...] 02/04/17 10:00 Blood monocytes/100 leukocytes 4 % NR Manual blood segmented neutrophils/100 leukocytes 90 % NR Manual blood lymphocytes/100 leukocytes 3 % NRG Blood lymphocytes variant/100 leukocytes 3 % NR Blood erythrocyte morphology finding identification [facility] Comprehensive metabolic panel - 02/04/17 10:00 Serum [...] - 02/06/17 06:57 Magnesium 1.6 mg/dL 1.8-2.4 Automated blood complete blood count (hemogram) panel - 02/07/17 05:45 Blood leukocytes automated count (number/volume) 9.3 10*3/uL 4.3-11.0 Blood erythrocytes automated count (number/volume) 2.45 10*6/uL 4.35-5.85 Venous blood hemoglobin measurement (mass/volume) 8.0 g/dL 11.5-16.0 Blood hematocrit (volume fraction) 25 % 35-52 Automated erythrocyte mean corpuscular volume 100 [foz_us] 80-99 Automated erythrocyte mean corpuscular hemoglobin (mass per erythrocyte) 33 pg 25-34 Automated erythrocyte mean corpuscular hemoglobin concentration measurement ( mass/volume) 33 g/dL 32-36 Automated erythrocyte distribution width ratio 14.2 % 10.0-14.5 Automated blood platelet count (count/volume) 98 10*3/uL 130-400 Automated blood platelet mean volume measurement 11.5 [foz_us] 7.4-10.4 Whole blood basic metabolic panel - 02/07/17 05:45 Serum or plasma sodium measurement (moles/volume) 139 mmol/L 135-145 Serum or plasma potassium measurement (moles/volume) 3.9 mmol/L 3.6-5.0 Serum or plasma chloride measurement (moles/volume) 104 mmol/L 98-107 Carbon dioxide 28 mmol/L 21-32 Serum or plasma anion gap determination (moles/volume) 7 mmol/L 5-14 Serum or plasma urea nitrogen measurement (mass/volume) 9 mg/dL 7-18 Serum or plasma creatinine measurement (mass/volume) 0.64 mg/dL 0.60-1.30 Serum or plasma urea nitrogen/creatinine mass ratio 14 NRG Serum or plasma creatinine measurement with calculation of estimated glomerular filtration rate > NRG Serum or plasma glucose measurement (mass/volume) 140 mg/dL 70-105 Serum or plasma calcium measurement (mass/volume) 8.3 mg/dL 8.5-10.1 Magnesium - 02/07/17 05:45 Magnesium 1.8 mg/dL 1.8-2.4 Complete blood count (CBC) with automated white blood cell (WBC) differential - 02/11/17 05:05 Blood leukocytes automated count (number/volume) 8.3 10*3/uL 4.3-11.0 Blood erythrocytes automated count (number/volume) 2.64 10*6/uL 4.35-5.85 Venous blood hemoglobin measurement (mass/volume) 8.6 g/dL 11.5-16.0 Blood hematocrit (volume fraction) 27 % 35-52 Automated erythrocyte mean corpuscular volume 102 [foz_us] 80-99 Automated erythrocyte mean corpuscular hemoglobin (mass per erythrocyte) 33 pg 25-34 Automated erythrocyte mean corpuscular hemoglobin concentration measurement ( mass/volume) 32 g/dL 32-36 Automated erythrocyte distribution width ratio 15.1 % 10.0-14.5 Automated blood platelet count (count/volume) 243 10*3/uL 130-400 Automated blood platelet mean volume measurement 9.7 [foz_us] 7.4-10.4 Automated blood neutrophils/100 leukocytes 65 % 42-75 Automated blood lymphocytes/100 leukocytes 22 % 12-44 Blood monocytes/100 leukocytes 10 % 0-12 Automated blood eosinophils/100 leukocytes 2 % 0-10 Automated blood basophils/100 leukocytes 1 % 0-10 Blood neutrophils automated count (number/volume) 5.5 10*3 1.8-7.8 Blood lymphocytes automated count (number/volume) 1.8 10*3 1.0-4.0 Blood monocytes automated count (number/volume) 0.8 10*3 0.0-1.0 Automated eosinophil count 0.2 10*3/uL 0.0-0.3 Automated blood basophil count (count/volume) 0.0 10*3/uL 0.0-0.1 Whole blood basic metabolic panel - 02/11/17 05:05 Serum or plasma sodium measurement (moles/volume) 139 mmol/L 135-145 Serum or plasma potassium measurement (moles/volume) 3.8 mmol/L 3.6-5.0 Serum or plasma chloride measurement (moles/volume) 104 mmol/L 98-107 Carbon dioxide 26 mmol/L 21-32 Serum or plasma anion gap determination (moles/volume) 9 mmol/L 5-14 Serum or plasma urea nitrogen measurement (mass/volume) 13 mg/dL 7-18 Serum or plasma creatinine measurement (mass/volume) 0.58 mg/dL 0.60-1.30 Serum or plasma urea nitrogen/creatinine mass ratio 22 NRG Serum or plasma creatinine measurement with calculation of estimated glomerular filtration rate > NRG Serum or plasma glucose measurement (mass/volume) 132 mg/dL 70-105 Serum or plasma calcium measurement (mass/volume) 8.4 mg/dL 8.5-10.1 Magnesium - 02/11/17 05:05 Magnesium 1.7 mg/dL 1.8-2.4 Automated blood complete blood count (hemogram) panel - 02/13/17 07:06 Blood leukocytes automated count (number/volume) 7.8 10*3/uL 4.3-11.0 Blood erythrocytes automated count (number/volume) 3.05 10*6/uL 4.35-5.85 Venous blood hemoglobin measurement (mass/volume) 9.8 g/dL 11.5-16.0 Blood hematocrit (volume fraction) 32 % 35-52 Automated erythrocyte mean corpuscular volume 103 [foz_us] 80-99 Automated erythrocyte mean corpuscular hemoglobin (mass per erythrocyte) 32 pg 25-34 Automated erythrocyte mean corpuscular hemoglobin concentration measurement ( mass/volume) 31 g/dL 32-36 Automated erythrocyte distribution width ratio 15.8 % 10.0-14.5 Automated blood platelet count (count/volume) 347 10*3/uL 130-400 Automated blood platelet mean volume measurement 9.6 [foz_us] 7.4-10.4 Whole blood basic metabolic panel - 02/13/17 07:06 Serum or plasma sodium measurement (moles/volume) 140 mmol/L 135-145 Serum or plasma potassium measurement (moles/volume) 3.9 mmol/L 3.6-5.0 Serum or plasma chloride measurement (moles/volume) 103 mmol/L 98-107 Carbon dioxide 28 mmol/L 21-32 Serum or plasma anion gap determination (moles/volume) 9 mmol/L 5-14 Serum or plasma urea nitrogen measurement (mass/volume) 15 mg/dL 7-18 Serum or plasma creatinine measurement (mass/volume) 0.67 mg/dL 0.60-1.30 Serum or plasma urea nitrogen/creatinine mass ratio 22 NRG Serum or plasma creatinine measurement with calculation of estimated glomerular filtration rate > NRG Serum or plasma glucose measurement (mass/volume) 188 mg/dL 70-105 Serum or plasma calcium measurement (mass/volume) 9.1 mg/dL 8.5-10.1 Encounters ACCT No. Visit Date/Time Discharge Status Pt. Type Provider Facility Loc./Unit Complaint [id number] 04/07/2017 09:12:00 04/07/2017 23:59:59 CLS Outpatient MOOKIE PALMER MD [facility] REHAB S/P R HIP HEMIARTHROPLASTY [id number] 02/06/2017 09:20:00 02/19/2017 09:30:00 DIS Inpatient MARYLOU CYR MD [facility] IRF RIGHT HIP FRACTURE [id number] 02/10/2017 13:00:00 02/10/2017 23:59:59 CLS Preadmit DUNG KEYS DO [facility] CARD R06.00 ACUTE DYSPNEA [id number] 02/04/2017 11:00:00 02/06/2017 09:20:00 DIS Inpatient MOOKIE PALMRE MD [facility] [address] 4TH RT HIP FX [id number] 11/17/2016 10:22:00 11/17/2016 12:40:00 DIS Outpatient COLLINS CARDOSO MD [facility] [address] [facility] ENDO CHANGE IN BOWEL [id number] 11/06/2016 05:42:00 11/06/2016 14:58:00 DIS Outpatient COLLINS CARDOSO MD [facility] [address] [facility] PREOP CHANGE IN BOWEL [id number] 03/24/2016 09:37:00 03/24/2016 12:10:00 DIS Outpatient COLLINS CARDOSO MD [facility] ENDO REFLUX [id number] 03/20/2016 05:50:00 03/20/2016 11:48:00 DIS Outpatient COLLINS CARDOSO MD [facility] PREOP REFLUX [id number] 02/11/2016 17:39:00 02/11/2016 23:59:59 CLS Outpatient KLEVER GREENE DO L [facility] LAB PNEUMONIA,COUGH [id number] 01/15/2016 08:25:00 01/15/2016 23:59:59 CLS Outpatient KEYS DO DUNG [facility] LAB Z00.00, E780.0, E78.1 [id number] 08/31/2015 07:27:00 08/31/2015 23:59:59 CLS Outpatient COLLINS CARDOSO MD [facility] RAD RUQ PAIN [id number] 07/18/2015 10:37:00 07/18/2015 23:59:59 CLS Outpatient KEYS DO, DUNG [facility] LAB ENCOUNTER FOR GENERAL ADULT EXAM [id number] 07/17/2015 11:24:00 07/17/2015 23:59:59 CLS Outpatient KEYS DO, DUNG [facility] LAB ENCOUNTER FOR GENERAL ADULT MED EXAM, ANEMIA [id number] 01/16/2015 08:13:00 01/16/2015 23:59:59 CLS Outpatient KEYS DO, DUNG [facility] LAB ANEMIA [id number] 06/30/2014 08:11:00 06/30/2014 23:59:59 CLS Outpatient KEYS DO, DUNG [facility] LAB MED MONITORING,HLTH SCREEN,ANEMIA NOS,NEUROPATHY, [id number] 02/06/2014 10:21:00 02/06/2014 13:15:00 DIS Outpatient COLLINS CARDOSO MD [facility] SDC CHANGE IN BOWL HABITS ; GERD [id number] 02/01/2014 06:19:00 02/01/2014 23:59:59 CLS Outpatient COLLINS CARDOSO MD [facility] PREOP CHANGE IN BOWEL HABITS; GERD [id number] 01/30/2014 10:37:00 01/30/2014 23:59:59 CLS Outpatient KEYS DO, DUNG [facility] RAD SCREENING [id number] 01/18/2014 11:45:00 01/18/2014 23:59:59 CLS Outpatient KEYS DO, DUNG [facility] LAB MEDICATION MONITORING LUMAR RADICULOPATHY RLS GERD [id number] 11/14/2013 14:00:00 11/14/2013 14:58:00 DIS Outpatient MADY HAYNES MD [facility] [address] CARD DDD [id number] 02/21/2013 14:07:00 02/21/2013 23:59:59 CLS Outpatient KEYS DO, DUNG [facility] LAB CELIAC SPRUE MALABSORPTION,MUSCLE PAIN,ANEMIA [id number] 12/31/2012 13:02:00 12/31/2012 23:59:59 CLS Outpatient KEYS DO, DUNG [facility] [address] RAD SCREENING [id number] 12/07/2012 08:04:00 12/07/2012 16:00:00 DIS Outpatient LAYLA ELLISON MD, FACC, FACP CCDS [facility] [address] CATH CP [id number] 11/19/2012 08:33:00 11/19/2012 23:59:59 CLS Outpatient LAYLA ELLISON MD, FACC, FACP CCDS [facility] [address] CARD CHEST DISCOMFORT [id number] 10/13/2012 08:06:00 10/13/2012 23:59:59 CLS Outpatient KEYS DO, DUNG [facility] LAB L LEG PAIN,SYNCOPE, DIZZINESS,NEUROPATHY,IDIOPATHIC [id number] 04/17/2017 17:18:00 ACT Emergency GIRISH HUNTER, JOCELYN [facility] [id number] 08/06/2011 14:18:00 Document Registration [id number] 01/29/2011 10:55:00 Document Registration [id number] 05/27/2010 09:33:00 Document Registration
[2017-04-17] MEDS ORDERED: ALTEPLASE 100 MG/VIAL (ACTIVASE) IV ONE ×2 (17:42→18:30)
--- NOTE | 2017-04-17 17:48 | Diagnostic Imaging Report ---
Clinical indication: Patient with respiratory distress. Patient intubated. Exam: Portable chest x-ray semiupright view. Comparison: Chest x-ray dated 02/04/2017. Findings: There is interval placement of ET tube with tip roughly 3.4 cm from the humaz in good position. There is a subtle airspace opacity overlying the right upper lobe which may represent infiltrate. Otherwise, lungs are clear. There is no pleural effusion or pneumothorax. Pulmonary vasculature and cardiac silhouettes within normal limits. There is right curvature of the lumbar spine with degenerative spurs. Impression: 1.: There is interval placement of ET tube in good position. 2: There is concern for small infiltrate in the right upper lobe which may represent infectious or inflammatory process. 3: The remainder of this exam shows no significant interval change compared to the prior study of comparison. Dictated by: Dictated on workstation # [id number]
[2017-04-17 17:57] LABS: ABG BASE EXCESS -1.7 MMOL/L (-2.5-2.5); ABG OXYGEN SATURATION 48 % (94-100); ABG PCO2 48 MMHG (35-45); ABG TCO2 25.5 MMOL/L (21.0-31.0)
[2017-04-17 17:59] LABS: ABG PH 7.31 (7.37-7.43); ABG PO2 30 MMHG (79-93)
[2017-04-17 18:00] LABS: ALLENS TEST POSITIVE; INSPIRED O2 100%; PATIENT TEMP 96.6; VENTILATOR YES
[2017-04-17] MEDS ORDERED: PROPOFOL DRIP (ICU) 100 ML IV ONE (18:20)
[2017-04-17] MEDS ORDERED: NS IV 1000 ML 1,000 ML ONE (18:20)
[2017-04-17 18:32] LABS: BASOPHILS % (AUTO) 0 % (0-10); EOSINOPHILS # (AUTO) 0.2 10^3/uL (0.0-0.3); EOSINOPHILS % (AUTO) 1 % (0-10); HEMATOCRIT 39 % (35-52); HEMOGLOBIN 12.3 G/DL (11.5-16.0); LYMPHOCYTES # (AUTO) 3.2 X 10^3 (1.0-4.0); LYMPHOCYTES % (AUTO) 29 % (12-44); MEAN CORPUSCULAR HEMOGLOBIN 32 PG (25-34); MEAN CORPUSCULAR HGB CONC 32 G/DL (32-36); MEAN CORPUSCULAR VOLUME 101 FL (80-99); MEAN PLATELET VOLUME 11.4 FL (7.4-10.4); MONOCYTES # (AUTO) 0.7 X 10^3 (0.0-1.0); MONOCYTES % (AUTO) 7 % (0-12); NEUTROPHILS % (AUTO) 63 % (42-75); PLATELET COUNT 117 10^3/uL (130-400); RED BLOOD COUNT 3.84 10^6/uL (4.35-5.85); RED CELL DISTRIBUTION WIDTH 13.6 % (10.0-14.5); WHITE BLOOD COUNT 11.1 10^3/uL (4.3-11.0)
[2017-04-17 18:36] LABS: INR 0.8 (0.8-1.4); PROTHROMBIN TIME PATIENT 11.6 SEC (12.2-14.7)
--- NOTE | 2017-04-17 18:38 | ED Respiratory ---
General Chief Complaint: Respiratory Problems Stated Complaint: SOA Source: patient, EMS Exam Limitations: clinical condition History of Present Illness Date Seen by Provider: Apr 17, 2017 Time Seen by Provider: 17:15 Initial Comments 81-year-old white female presents in acute respiratory distress. Patient has been eating ice cream at the ice cream shop when she developed respiratory distress. Her medics arrived and found that the patient's sat despite the use of CPAP was very low. The patient had had a hip fracture repair in January. Patient was unable to offer area helpful history upon presentation emergency department. She was in marked respiratory distress. Allergies and Home Medications Allergies Coded Allergies: No Known Drug Allergies (Unverified , 02/04/17) Home Medications Calcium Carbonate/Vitamin D3 1 Each Tablet, 1 TAB PO DAILY, (Reported) Hydrocodone/Acetaminophen 1 Each Tablet, 1 EA PO Q4HR PRN for PAIN-MODERATE Prescribed by: MARYLOU CYR on 02/18/171949 Magnesium Oxide 250 Mg Tablet, 250 MG PO DAILY, (Reported) Multivitamin 1 Each Tablet, 1 TAB PO DAILY, (Reported) Omeprazole 20 Mg Capsule.dr, 20 MG PO BID, (Reported) Rivaroxaban 10 Mg Tablet, 10 MG PO DAILY@1800 Prescribed by: MARYLOU CYR on 02/18/171949 Ropinirole HCl 1 Mg Tablet, 1 MG PO HS, (Reported) Triamcinolone Acet 15 Gm Cr, 0 GM TP BID Prescribed by: MARYLOU CYR on 02/18/171949 Patient Home Medication List Home Medication List Reviewed: Yes Constitutional: see HPI, No fever EENTM: no symptoms reported Respiratory: short of breath Cardiovascular: No chest pain Gastrointestinal: No abdominal pain, No vomiting Genitourinary: no symptoms reported Musculoskeletal: no symptoms reported Skin: no symptoms reported Psychiatric/Neurological: No Symptoms Reported Hematologic/Lymphatic: No Symptoms Reported Immunological/Allergic: no symptoms reported Past Pbcoryd-Yrmhfd-Wnvqmr Hx Patient Social History Recent Hopitalizations: No Immunizations Up To Date Date of Pneumonia Vaccine: Nov 17, 2011 Date of Influenza Vaccine: Dec 07, 2012 Seasonal Allergies Seasonal Allergies: No Surgeries History of Surgeries: No Surgeries: Ear Surgery, Gallbladder Respiratory History of Respiratory Disorde: Yes (2015) Respiratory Disorders: Pneumonia Cardiovascular History of Cardiac Disorders: Yes (AORTIC STENOSIS) Neurological History of Neurological Disord: Yes (RESTLESS LEG) 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 System Hx 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 Disorders: No Sexually Transmitted Disease: No HIV/AIDS: No Female 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 Disorders: Denies Genitourinary History of Genitourinary Disor: No Gastrointestinal History of Gastrointestinal Di: Yes Gastrointestinal Disorders: Gastroesophageal Reflux, Irritable Bowel Musculoskeletal History of Musculoskeletal Dis: Yes Musculoskeletal Disorders: Arthritis, Chronic Back Pain Endocrine History of Endocrine Disorders: No HEENT 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, Bilateral Hearing Aide Cancer History of Cancer: No Psychosocial History of Psychiatric Problem: No Integumentary History of Skin or Integumenta: No Blood Transfusions History of Blood Disorders: No Adverse Reaction to a Blood Tr: No Reviewed Nursing Assessment Reviewed/Agree w Nursing PMH: Yes Physical Exam Vital Signs Capillary Refill : General Appearance: WD/WN, severe distress Eyes: Bilateral Eye Normal Inspection HEENT: PERRL/EOMI Neck: non-tender, supple Respiratory: lungs clear, normal breath sounds Cardiovascular: regular rate, rhythm, other Gastrointestinal: normal bowel sounds (patient's extremities were markedly cyanotic) Extremities: normal range of motion, non-tender Neurologic/Psychiatric: alert Skin: normal color, warm/dry Progress/Results/Core Measures Suspected Sepsis SIRS Temperature: Pulse: Respiratory Rate: Laboratory Tests 04/17/17 18:05: Blood Pressure / Mean: Laboratory Tests 04/17/17 18:05: Results/Orders Lab Results Laboratory Tests Test 04/17/17 17:44 04/17/17 18:05 Range/Units Blood Gas Puncture Site RIGHT RADIAL Blood Gas Patient Temperature 96.6 Arterial Blood pH 7.31 *L 7.37-7.43 Arterial Blood Partial Pressure CO2 48 H 35-45 MMHG Arterial Blood Partial Pressure O2 30 *L 79-93 MMHG Arterial Blood HCO3 24 23-27 MMOL/L Arterial Blood Total CO2 25.5 21.0-31.0 MMOL/L Arterial Blood Oxygen Saturation 48 L 94-100 % Arterial Blood Base Excess -1.7 -2.5-2.5 MMOL/L Devon Test POSITIVE Blood Gas Ventilator Setting YES Blood Gas Inspired Oxygen 100% My Orders Orders - JOCELYN STOUT MD Chest 1 View, Ap/Pa Only (04/17/17 17:30) Arterial Blood Gas (04/17/17 17:51) Cbc With Automated Diff (04/17/17 18:23) Magnesium (04/17/17 18:23) Ekg Tracing (04/17/17 18:23) Cardiac Profile 1 (04/17/17 18:) Comprehensive Metabolic Panel (04/17/17 18:) Myoglobin Serum (04/17/17 18:) Protime With Inr (04/17/17 18:) Partial Thromboplastin Time (04/17/17 18:) O2 (04/17/17 18:) Monitor-Rhythm Ecg Trace Only (04/17/17:) Lipid Panel (04/18/17 06:00) Saline Lock/Iv-Start (04/17/17 18:23) BNP (04/17/17 18:) Fibrin Degradation Products (04/17/17 18:) Alteplase (Activase) (Activase Injection (04/17/17 18:30) Post Thrombolytic Adminstratio (04/17/17 18:25) Vital Signs/I&O Capillary Refill : Progress Note : Time: 18:34 Progress Note The patient's sats on high flow oxygen were in the 30s. The patient demonstrated a sinus tachycardia on monitor. Patient was acutely intubated with number 8 endotracheal tube using 4 mg of Versed, 50 mg succinylcholine, and 20 mg of propofol. Critical Care Note Critical Care Total Time (minutes) 90 minutes Progress After the 100 mg TPA drip given over 2 hours the patient's sats gradually began to climb. Dr. Sibley established a right femoral line in the ED. Dr. Bourne presented to evaluate patient in the emergency department. Dr. Mcintosh was kind enough to accept the patient. Dr. Brizuela will see the patient in the morning Departure Communication (Admissions) Time/Spoke to Admitting Phy: 18:[address] Mcintosh. Time/Spoke to Consulting Phy: 18:41 Communication/Consulting Dr. Sibley, Dr. Bourne, and Dr. Brizuela. Impression Impression: Primary Impression: Pulmonary embolus Qualified Codes: I26.99 - Other pulmonary embolism without acute cor pulmonale Disposition: ADMITTED INPATIENT Condition: Improved Admissions Decision to Admit Reason: Admit from ER (General) Decision to Admit/Date: Apr 17, 2017 Time/Decision to Admit Time: 18:42 Departure-Patient Inst. Referrals: MOOKIE PALMER MD (PCP) Primary Care Physician JOCELYN STOUT MD Apr 17, 2017 18:38
[2017-04-17 18:49] LABS: ALANINE AMINOTRANSFERASE 23 U/L (0-55); ALBUMIN 3.8 GM/DL (3.2-4.5); ALKALINE PHOSPHATASE 142 U/L (40-136); BILIRUBIN,TOTAL 0.5 MG/DL (0.1-1.0); BUN/CREATININE RATIO 21; CALCIUM 8.6 MG/DL (8.5-10.1); CARBON DIOXIDE 21 MMOL/L (21-32); CHLORIDE 104 MMOL/L (98-107); CREATININE SERUM 0.72 MG/DL (0.60-1.30); GFR ESTIMATED > 60; GLUCOSE 230 MG/DL (70-105); MAGNESIUM 1.8 MG/DL (1.8-2.4); POTASSIUM 3.6 MMOL/L (3.6-5.0); SODIUM 138 MMOL/L (135-145); TOTAL PROTEIN 6.3 GM/DL (6.4-8.2)
[2017-04-17 18:56] LABS: MYOGLOBIN SERUM 166.5 NG/ML (10.0-92.0)
[2017-04-17 19:00] VITALS: BP_SYST 133; BP_SYST 136; BP_DIAS 80; BP_DIAS 85
[2017-04-17] MEDS: PROPOFOL DRIP (ICU) 100 ML IV SCH ×2 (19:42→22:50)
[2017-04-17] MEDS: NS IV 1000 ML 1,000 ML IV SCH (19:42)
[2017-04-17] MEDS ORDERED: PANTOPRAZOLE 40 MG/10 ML (PROTONIX) VIAL IV NR (19:49)
[2017-04-17 20:00] VITALS: BP 106/76
[2017-04-17] MEDS ORDERED: CATHETER FLUSH 10 ML SYR IV PRN (20:00)
[2017-04-17] MEDS: HEParin DRIP 25000 UNIT/500ML 500 ML IV SCH (20:26)
[2017-04-17 21:00] VITALS: BP 107/75
[2017-04-17 21:22] VITALS: BP 118/76
--- NOTE | 2017-04-17 21:38 | Consultation ---
History of Present Illness History of Present Illness Patient Consulted On(brandon/time) 04/17/17 21:18 Date Seen by Provider: Apr 17, 2017 Time Seen by Provider: 18:41 History of Present Illness consult for central line from Dr. Payne Seen and evaluated in ED. Chavo is a 81 year old female with acute respiratory failure. She was intubated upon arrival to ED for acute respiratory failure. Unable to provide history due to condition. Patient with presumed PE. Needs central line place for central access. Being given TPA. No family at bedside. Allergies and Home Medications Allergies Coded Allergies: No Known Drug Allergies (Unverified , 02/04/17) Home Medications Calcium Carbonate/Vitamin D3 1 Each Tablet, 1 TAB PO DAILY, (Reported) Hydrocodone/Acetaminophen 1 Each Tablet, 1 EA PO Q4HR PRN for PAIN-MODERATE Prescribed by: MARYLOU CYR on 02/18/171949 Magnesium Oxide 250 Mg Tablet, 250 MG PO DAILY, (Reported) Multivitamin 1 Each Tablet, 1 TAB PO DAILY, (Reported) Omeprazole 20 Mg Capsule.dr, 20 MG PO BID, (Reported) Rivaroxaban 10 Mg Tablet, 10 MG PO DAILY@1800 Prescribed by: MARYLOU CYR on 02/18/171949 Ropinirole HCl 1 Mg Tablet, 1 MG PO HS, (Reported) Triamcinolone Acet 15 Gm Cr, 0 GM TP BID Prescribed by: MARYLOU CYR on 02/18/171949 Patient Home Medication List Home Medication List Reviewed: Yes Past Mvnqzjk-Ygelgv-Krooit Hx Patient Social History Alcohol Use: Denies Use Smoking Status: Unknown if Ever Smoked Recent Infectious Disease Expo: No Recent Hopitalizations: No Immunizations Up To Date Date of Pneumonia Vaccine: Nov 17, 2011 Date of Influenza Vaccine: Dec 07, 2012 Seasonal Allergies Seasonal Allergies: No Surgeries History of Surgeries: Yes (HIP ) Surgeries: Ear Surgery, Gallbladder Respiratory History of Respiratory Disorde: Yes (2016) Respiratory Disorders: Pneumonia Cardiovascular History of Cardiac Disorders: Yes (AORTIC STENOSIS) Neurological History of Neurological Disord: Yes (RESTLESS LEG) 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 System Hx 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 Disorders: No Sexually Transmitted Disease: No HIV/AIDS: No Female 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 Disorders: Denies Genitourinary History of Genitourinary Disor: No Gastrointestinal History of Gastrointestinal Di: Yes Gastrointestinal Disorders: Gastroesophageal Reflux, Irritable Bowel Musculoskeletal History of Musculoskeletal Dis: Yes Musculoskeletal Disorders: Arthritis, Chronic Back Pain Endocrine History of Endocrine Disorders: No HEENT 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, Bilateral Hearing Aide Cancer History of Cancer: No Psychosocial History of Psychiatric Problem: No Integumentary History of Skin or Integumenta: No Blood Transfusions History of Blood Disorders: No Adverse Reaction to a Blood Tr: No Reviewed Nursing Assessment Reviewed/Agree w Nursing PMH: Yes Family Medical History Significant Family History: No Pertinent Family Hx Family Medial History: Review of Systems-General ROS-Unable to Obtain: due to patient condition Physical Exam-General Problems Physical Exam Vital Signs Vital Signs - First Documented 04/17/17 17:14 Temp 98.2 Pulse 124 Resp 24 B/P (MAP) 153/90 (111) Pulse Ox 35 O2 Delivery NIV Bilevel Capillary Refill : Less Than 3 Seconds General Appearance: other (sedated and intubated) HEENT: normal ENT inspection Neck: supple Respiratory: other (intubated with chest rise b/l) Cardiovascular: tachycardia Gastrointestinal: soft, no organomegaly Rectal: deferred Extremities: normal inspection Neurologic/Psychiatric: No alert (sedated), No oriented x 3 Skin: cyanosis Lymphatic: no adenopathy Data Review Labs Laboratory Tests 04/17/17 17:44: Blood Gas Puncture Site RIGHT RADIAL, Blood Gas Patient Temperature 96.6, Arterial Blood pH 7.31*L, Arterial Blood Partial Pressure CO2 48H, Arterial Blood Partial Pressure O2 30*L, Arterial Blood HCO3 24, Arterial Blood Total CO2 25.5, Arterial Blood Oxygen Saturation 48L, Arterial Blood Base Excess -1.7 , Devon Test POSITIVE, Blood Gas Ventilator Setting YES, Blood Gas Inspired Oxygen 100% 04/17/17 18:05: White Blood Count 11.1H, Red Blood Count 3.84L, Hemoglobin 12.3, Hematocrit 39, Mean Corpuscular Volume 101H, Mean Corpuscular Hemoglobin 32, Mean Corpuscular Hemoglobin Concent 32, Red Cell Distribution Width 13.6, Platelet Count 117L, Mean Platelet Volume 11.4H, Neutrophils (%) (Auto) 63, Lymphocytes (%) (Auto) 29 , Monocytes (%) (Auto) 7, Eosinophils (%) (Auto) 1, Basophils (%) (Auto) 0, Neutrophils # (Auto) 7.0, Lymphocytes # (Auto) 3.2, Monocytes # (Auto) 0.7, Eosinophils # (Auto) 0.2, Basophils # (Auto) 0.0, Prothrombin Time 11.6L, INR Comment 0.8, Activated Partial Thromboplast Time 20L, D-Dimer > 20.00*H, Sodium Level 138, Potassium Level 3.6, Chloride Level 104, Carbon Dioxide Level 21, Anion Gap 13, Blood Urea Nitrogen 15, Creatinine 0.72, Estimat Glomerular Filtration Rate > 60, BUN/Creatinine Ratio 21, Glucose Level 230H, Calcium Level 8.6, Magnesium Level 1.8, Total Bilirubin 0.5, Aspartate Amino Transf (AST /SGOT) 35H, Alanine Aminotransferase (ALT/SGPT) 23, Alkaline Phosphatase 142H, Myoglobin 166.5H, Troponin I < 0.30, B-Type Natriuretic Peptide 32.6, Total Protein 6.3L, Albumin 3.8 04/17/17 20:05: Platelet Count 120L, Activated Partial Thromboplast Time 68H Assessment/Plan Assessment/Plan Assessment/Plan acute respiratory failure pulmonary embolism Need central venous access. patient intubated and receiving TPA, placed right femoral vein central line u/s guided medical management. PROCEDURE: right groin prepped and draped in sterile fashion u/s used to visualize femoral artery and vein. Right femoral vein accessed, dark nonpulsatile blood withdrawn. guide wire inserted through needle and needle removed. 11 blade scalpel used to cut skin at insertion site and and dilator advanced over wire and removed. Triple lumen catheter advance over wire and wire removed. all ports rui blood without difficulty and then flushed with heparinized saline. Sutured into place and sterile bandage applied Clinical Quality Measures DVT/VTE Risk/Contraindication: Risk Factor Score Per Nursin RFS Level Per Nursing on Admit: 4+=Very High PERRY ALDRICH DO Apr 17, 2017 21:38
[2017-04-17 22:00] VITALS: BP 97/71
[2017-04-17 23:00] VITALS: BP 99/77
[2017-04-17] MEDS: fentaNYL INJECTION 100 MCG/2 ML AMP IVP PRN (23:15)
[2017-04-17] MEDS ORDERED: NS IV 500 ML 500 ML ONE (23:24)
[2017-04-17] MEDS ORDERED: NS IV 500 ML 500 ML IV STA (23:29)
[2017-04-18] VITALS (35 sets, daily range): BP systolic 82–151; BP diastolic 52–98
[2017-04-18] MEDS ORDERED: NS IV 500 ML 500 ML IV ONE ×3 (02:00→22:30)
[2017-04-18 03:25] LABS: BASOPHILS % (AUTO) 0 % (0-10); EOSINOPHILS % (AUTO) 0 % (0-10); HEMATOCRIT 36 % (35-52); HEMOGLOBIN 11.6 G/DL (11.5-16.0); LYMPHOCYTES # (AUTO) 1.2 X 10^3 (1.0-4.0); LYMPHOCYTES % (AUTO) 16 % (12-44); MEAN CORPUSCULAR HEMOGLOBIN 32 PG (25-34); MEAN CORPUSCULAR HGB CONC 33 G/DL (32-36); MEAN CORPUSCULAR VOLUME 99 FL (80-99); MEAN PLATELET VOLUME 10.9 FL (7.4-10.4); MONOCYTES # (AUTO) 0.4 X 10^3 (0.0-1.0); MONOCYTES % (AUTO) 6 % (0-12); NEUTROPHILS # (AUTO) 5.5 X 10^3 (1.8-7.8); NEUTROPHILS % (AUTO) 77 % (42-75); PLATELET COUNT 103 10^3/uL (130-400); RED BLOOD COUNT 3.62 10^6/uL (4.35-5.85); RED CELL DISTRIBUTION WIDTH 13.6 % (10.0-14.5); WHITE BLOOD COUNT 7.1 10^3/uL (4.3-11.0)
[2017-04-18] MEDS: PROPOFOL DRIP (ICU) 100 ML IV SCH ×3 (03:46→19:09)
[2017-04-18 04:00] LABS: CHOLESTEROL 167 MG/DL (< 200); HDL CHOLESTEROL 57 MG/DL (40-60); TRIGLYCERIDES 152 MG/DL (<150); VLDL CHOLESTEROL 30 MG/DL (5-40)
[2017-04-18 04:14] LABS: ALANINE AMINOTRANSFERASE 39 U/L (0-55); ALBUMIN 3.4 GM/DL (3.2-4.5); ALKALINE PHOSPHATASE 137 U/L (40-136); BILIRUBIN,TOTAL 0.5 MG/DL (0.1-1.0); BUN/CREATININE RATIO 23; CALCIUM 8.6 MG/DL (8.5-10.1); CARBON DIOXIDE 23 MMOL/L (21-32); CHLORIDE 105 MMOL/L (98-107); GFR ESTIMATED > 60; GLUCOSE 157 MG/DL (70-105); MAGNESIUM 1.6 MG/DL (1.8-2.4); PHOSPHORUS 3.4 MG/DL (2.3-4.7); POTASSIUM 4.1 MMOL/L (3.6-5.0); SODIUM 137 MMOL/L (135-145); TOTAL PROTEIN 5.8 GM/DL (6.4-8.2)
[2017-04-18] MEDS: POTASSIUM CL 10MEQ/50ML IVPB 50 ML IV SCH (05:02)
[2017-04-18] MEDS: MAGNESIUM 1 GM/100 ML IVPB 100 ML IV SCH ×3 (05:02→05:13)
--- NOTE | 2017-04-18 05:20 | Pulmonary Consultation ---
History of Present Illness History of Present Illness Date of Consultation 04/17/17 Late entry Today's date is 04/18/17 05:14 Time Seen by Provider: 17:30 Date of Admission History of Present Illness 81yo with hx of hip replacement 02/01 presented in acute respiratory failure after acute syncope at [facility]. EMS was called pt was intubated and upon ED arrival she was very hypoxic with Sp02 in 60's. I instructed ED Doc to give TPA stat for expected acute PE. CXR was clear. Upon my arrival pt was getting TPA and Sp02 was slightly improving into the upper 60's and lower 70's. We gave 10mg bolus of TPA followed by 90mg over 2hrs. No family present. Unable to get information from patient. I am consulted for ICU management. Allergies and Home Medications Allergies Coded Allergies: No Known Drug Allergies (Unverified , 02/04/17) Home Medications Calcium Carbonate/Vitamin D3 1 Each Tablet, 1 TAB PO DAILY, (Reported) Hydrocodone/Acetaminophen 1 Each Tablet, 1 EA PO Q4HR PRN for PAIN-MODERATE Prescribed by: MARYLOU CYR on 02/18/171949 Magnesium Oxide 250 Mg Tablet, 250 MG PO DAILY, (Reported) Multivitamin 1 Each Tablet, 1 TAB PO DAILY, (Reported) Omeprazole 20 Mg Capsule.dr, 20 MG PO BID, (Reported) Rivaroxaban 10 Mg Tablet, 10 MG PO DAILY@1800 Prescribed by: MARYLOU CYR on 02/18/171949 Ropinirole HCl 1 Mg Tablet, 1 MG PO HS, (Reported) Triamcinolone Acet 15 Gm Cr, 0 GM TP BID Prescribed by: MARYLOU CYR on 02/18/171949 Past Siblonp-Mlqrsy-Iboysz Hx Patient Social History Alcohol Use: Denies Use Smoking Status: Unknown if Ever Smoked Recent Infectious Disease Expo: No Recent Hopitalizations: No Immunizations Up To Date Date of Pneumonia Vaccine: Nov 17, 2011 Date of Influenza Vaccine: Dec 07, 2012 Seasonal Allergies Seasonal Allergies: No Surgeries History of Surgeries: Yes (HIP ) Surgeries: Ear Surgery, Gallbladder Respiratory History of Respiratory Disorde: Yes (2016) Respiratory Disorders: Pneumonia Cardiovascular History of Cardiac Disorders: Yes (AORTIC STENOSIS) Neurological History of Neurological Disord: Yes (RESTLESS LEG) 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 System : No Hx 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 Disorders: No Sexually Transmitted Disease: No HIV/AIDS: No Female 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 Disorders: Denies Genitourinary History of Genitourinary Disor: No Gastrointestinal History of Gastrointestinal Di: Yes Gastrointestinal Disorders: Gastroesophageal Reflux, Irritable Bowel Musculoskeletal History of Musculoskeletal Dis: Yes Musculoskeletal Disorders: Arthritis, Chronic Back Pain Endocrine History of Endocrine Disorders: No HEENT 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, Bilateral Hearing Aide Cancer History of Cancer: No Psychosocial History of Psychiatric Problem: No Integumentary History of Skin or Integumenta: No Blood Transfusions History of Blood Disorders: No Adverse Reaction to a Blood Tr: No Reviewed Nursing Assessment Reviewed/Agree w Nursing PMH: Yes Family Medical History Significant Family History: No Pertinent Family Hx Family Medial History: Exam Exam Vital Signs Date Time Temp Pulse Resp B/P (MAP) Pulse Ox O2 Delivery O2 Flow Rate FiO2 04/18/17 05:00 89 23 108/71 (83) 97 Mechanical Ventilator 80.00 04/18/17 05:00 89 26 96 04/18/17 04:20 85 24 99 70 04/18/17 04:15 Mechanical Ventilator 70.00 04/18/17 04:00 Mechanical Ventilator 80 04/18/17 04:00 89 26 129/78 (95) 99 Mechanical Ventilator 80.00 04/18/17 03:46 83 04/18/17 03:30 97.4 Mechanical Ventilator 80.00 04/18/17 03:00 78 23 143/88 (106) 96 Mechanical Ventilator 100.00 04/18/17 03:00 84 24 100 80 04/18/17 02:00 82 23 127/78 (94) 99 Mechanical Ventilator 100.00 04/18/17 01:00 84 04/18/17 01:00 82 20 137/90 (106) 93 Mechanical Ventilator 100.00 04/18/17 00:26 85 24 90 100 04/18/17 00:00 98.4 Mechanical Ventilator 100.00 04/18/17 00:00 Mechanical Ventilator 100 04/18/17 00:00 86 21 92/69 (77) 89 Mechanical Ventilator 100.00 04/17/17 23:00 104 19 99/77 (84) 81 Mechanical Ventilator 100.00 04/17/17 22:50 102 04/17/17 22:00 107 18 97/71 (80) 84 Mechanical Ventilator 100.00 04/17/17 21:22 102 32 86 100 04/17/17 21:00 105 23 107/75 (86) 88 Mechanical Ventilator 100.00 04/17/17 20:00 109 26 106/76 (86) 89 Mechanical Ventilator 100.00 04/17/17 20:00 Mechanical Ventilator 100 04/17/17 19:42 112 04/17/17 19:15 88 Mechanical Ventilator 100.00 04/17/17 19:00 111 04/17/17 19:00 121 24 133/80 (97) 86 Mechanical Ventilator 100.00 04/17/17 19:00 122 24 86 100 04/17/17 19:00 98.1 Mechanical Ventilator 100.00 04/17/17 18:47 130 16 129/75 70 04/17/17 18:30 98.2 130 16 148/85 60 04/17/17 17:58 100 04/17/17 17:14 98.2 124 24 153/90 (111) 34 NIV/Bilevel 04/17/17 17:14 35 NIV Bilevel I & O 04/18/17 07:00 Intake Total 600 ml Output Total 275 ml Balance 325 ml Capillary Refill: Less Than 3 Seconds Gastrointestinal: soft, no organomegaly Results Lab Laboratory Tests 04/17/17 18:05 04/17/17 20:05 04/18/17 03:10 Assessment/Plan Assessment/Plan Probable Acute PE with syncope -TPA 10mg Bolus followed by 90mg over 2 hrs -Echocardiogram -No sticks for 24hrs after TPA -dopplers LE Acute respiratory failure -Continue ventilator therapy - diprivan for sedation -CTA of chest -OG tube HAYLEY MURRAY DO Apr 18, 2017 05:20
--- NOTE | 2017-04-18 05:34 | Pulmonary Progress Note ---
Subjective Time Seen by Provider: 05:49 Subjective/Events-last exam Pt is sedated on vent. SHe is oxygenating better now. Exam Exam Vital Signs Date Time Temp Pulse Resp B/P (MAP) Pulse Ox O2 Delivery O2 Flow Rate FiO2 04/18/17 05:00 89 23 108/71 (83) 97 Mechanical Ventilator 80.00 04/18/17 05:00 89 26 96 04/18/17 04:20 85 24 99 70 04/18/17 04:15 Mechanical Ventilator 70.00 04/18/17 04:00 Mechanical Ventilator 80 04/18/17 04:00 89 26 129/78 (95) 99 Mechanical Ventilator 80.00 04/18/17 03:46 83 04/18/17 03:30 97.4 Mechanical Ventilator 80.00 04/18/17 03:00 78 23 143/88 (106) 96 Mechanical Ventilator 100.00 04/18/17 03:00 84 24 100 80 04/18/17 02:00 82 23 127/78 (94) 99 Mechanical Ventilator 100.00 04/18/17 01:00 84 04/18/17 01:00 82 20 137/90 (106) 93 Mechanical Ventilator 100.00 04/18/17 00:26 85 24 90 100 04/18/17 00:00 98.4 Mechanical Ventilator 100.00 04/18/17 00:00 Mechanical Ventilator 100 04/18/17 00:00 86 21 92/69 (77) 89 Mechanical Ventilator 100.00 04/17/17 23:00 104 19 99/77 (84) 81 Mechanical Ventilator 100.00 04/17/17 22:50 102 04/17/17 22:00 107 18 97/71 (80) 84 Mechanical Ventilator 100.00 04/17/17 21:22 102 32 86 100 04/17/17 21:00 105 23 107/75 (86) 88 Mechanical Ventilator 100.00 04/17/17 20:00 109 26 106/76 (86) 89 Mechanical Ventilator 100.00 04/17/17 20:00 Mechanical Ventilator 100 04/17/17 19:42 112 04/17/17 19:15 88 Mechanical Ventilator 100.00 04/17/17 19:00 111 04/17/17 19:00 121 24 133/80 (97) 86 Mechanical Ventilator 100.00 04/17/17 19:00 122 24 86 100 04/17/17 19:00 98.1 Mechanical Ventilator 100.00 04/17/17 18:47 130 16 129/75 70 04/17/17 18:30 98.2 130 16 148/85 60 04/17/17 17:58 100 04/17/17 17:14 98.2 124 24 153/90 (111) 34 NIV/Bilevel 04/17/17 17:14 35 NIV Bilevel I & O 04/18/17 07:00 Intake Total 600 ml Output Total 275 ml Balance 325 ml General Appearance: Other (sedated on vent) HEENT: PERRL/EOMI, Other (ET tube on place) Neck: Normal Inspection, Non Tender, Supple Respiratory: Chest Non Tender, Lungs Clear, Normal Breath Sounds, No Accessory Muscle Use, No Respiratory Distress Capillary Refill: Less Than 3 Seconds Gastrointestinal: soft, no organomegaly Skin: Normal Color, Warm/Dry Lymphatic: No Adenopathy Results Lab Laboratory Tests 04/17/17 18:05 04/17/17 20:05 04/18/17 03:10 Assessment/Plan Assessment/Plan Probable Acute PE with syncope -s/p TPA 10mg Bolus followed by 90mg over 2 hrs -Heparin gtt -Echocardiogram -No sticks for 24hrs after TPA -dopplers LE Acute respiratory failure -Continue ventilator therapy - diprivan for sedation -CTA of chest this morning -Will start TF -OG tube Critical Care: Critically Ill Patient Time spent with patient (mins): 30 HAYLEY MURRAY DO Apr 18, 2017 05:34
[2017-04-18] MEDS ORDERED: RT-ALBUTEROL/IPRATROPIUM 3 ML (DUONEB) VIAL INH PRN (06:00)
[2017-04-18 06:30] LABS: INR 1.7 (0.8-1.4); PROTHROMBIN TIME PATIENT 19.9 SEC (12.2-14.7)
[2017-04-18] MEDS: RT-ALBUTEROL/IPRATROPIUM 3 ML (DUONEB) VIAL INH SCH ×5 (06:56→22:18)
[2017-04-18] MEDS: PANTOPRAZOLE 40 MG/10 ML (PROTONIX) VIAL IV SCH ×2 (08:11→20:50)
--- NOTE | 2017-04-18 08:19 | Diagnostic Imaging Report ---
EXAM: Portable chest. COMPARISON to prior study from 04/17/2017. INDICATION: Respiratory failure. FINDINGS: Endotracheal tube positioning appears appropriate. An enteric tube has been placed and extends to the stomach. Interstitial changes within the lungs are stable. There is no effusion or pneumothorax evident. Heart size is stable. IMPRESSION: Endotracheal tube positioning remains appropriate. There has been placement of an enteric tube which appropriately extends to the stomach. The appearance of the lungs, stable. There are no alveolar infiltrates. There is no effusion. Heart size is stable without evidence of congestive failure. Dictated by: Dictated on workstation # [id number]
--- NOTE | 2017-04-18 09:08 | Occ Therapy Progress Note ---
Therapy Progress Note Order received for OT eval and treat. Chart review completed. Pt is currently intubated and sedated. Will hold therapy at this time and will continue to monitor and initiate skilled OT evaluation when appropriate. BROCK MOTT OT Apr 18, 2017 09:08
[2017-04-18] MEDS ORDERED: CATHETER FLUSH 10 ML SYR IV PRN ×2 (09:30)
[2017-04-18] MEDS ORDERED: NS 250 ML (IVPB) BAG IV ONE (09:30)
[2017-04-18] MEDS ORDERED: IOHEXOL 350 MG/ML 150 ML (OMNIPAQUE 350) VIAL IV ONE (09:30)
--- NOTE | 2017-04-18 10:18 | Diagnostic Imaging Report ---
INDICATION: Patient is unresponsive. Leg swelling. FINDINGS: The right common femoral vein cannot be evaluated due to central line with bandage. The remainder of the right lower extremity venous system is widely patent. The left lower extremity venous system is widely patent with Doppler imaging. Calf compression shows normal augmentation of flow at the popliteal level bilaterally. IMPRESSION: No evidence of deep venous thrombosis. Right lower extremity exam limited due to bandage at the common femoral vein. Dictated by: Dictated on workstation # [id number]
[2017-04-18] MEDS ORDERED: RECEIVED CONTRAST (Hold Metformin) IV SCH (10:30)
[2017-04-18] MEDS: fentaNYL INJECTION 100 MCG/2 ML AMP IVP PRN (10:39)
--- NOTE | 2017-04-18 11:09 | History & Physical-Hospitalist ---
HPI History of Present Illness: HPI/Chief Complaint CC: Wheezing and respiratory failure while at [employer] store HPI: This is a 81-year-old white female clinic patient of mine for the past 8 years with a past medical history of restless leg syndrome and irritable bowel syndrome with GERD with multiple colonoscopies and EGDs in the past by Dr. Choudhury who recently had a right hip fracture repair on 02/05/17 after a fall. She actually did very well was discharged to rehabilitation had no significant medical issues during rehabilitation stay was able to ambulate well and had no delay in her recovery and I had seen her in the clinic twice since her discharge from the hospital and she was doing well and ambulating without a cane or a walker. She did not have any history of calf pain or any other issues while she was hospitalized or after discharge. Apparently she went to the ice cream store yesterday began an abrupt onset of wheezing while in the store and suffered respiratory failure and ambulance was called and she was found to be in respiratory failure in the ER was intubated and managed for her critical illness. She was given TPA for presumed acute TPA causing syncope with good results and this morning she is oxygenating well on ventilator and I greatly appreciate cardiology and pulmonology and Gen. surgery Central line placement and managing this critically ill patient. Source: RN/, old records Exam Limitations: clinical condition (intubated) Date Seen 04/18/17 Time Seen by Provider: 10:00 Attending Physician Fely Mcintosh DO PCP Kaden Wang MD Referring Physician Date of Admission Apr 17, 2017 at 18:38 Home Medications & Allergies Home Medications Reviewed patient Home Medication Reconciliation Form Allergies Allergies Coded Allergies No Known Drug Allergies ([id number]/20/17) Past Uqsyxnr-Zrynrp-Iuaejo Hx Patient Social History Marrital Status: Employed/Student: retired Alcohol Use: Denies Use Smoking Status: Never a Smoker Recent Hopitalizations: No Recent Infectious Disease Expo: No Immunizations Up To Date Date of Pneumonia Vaccine: Nov 17, 2011 Date of Influenza Vaccine: Dec 07, 2012 Seasonal Allergies Seasonal Allergies: No Surgeries Yes (HIP ) Ear Surgery, Gallbladder, Orthopedic (02/05/17 right hip) Respiratory Yes (2016) Cardiovascular Yes (AORTIC STENOSIS) Neurological Yes (RESTLESS LEG) 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 System : No Hx 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 Disorders: No Sexually Transmitted Disease: No HIV/AIDS: No Female 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 Disorders: Denies Genitourinary No Gastrointestinal Yes Gastroesophageal Reflux, Irritable Bowel Musculoskeletal Yes Arthritis, Chronic Back Pain Endocrine History of Endocrine Disorders: No HEENT 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, Bilateral Hearing Aide Cancer No Psychosocial History of Psychiatric Problem: No Integumentary History of Skin or Integumenta: No Blood Transfusions History of Blood Disorders: No Adverse Reaction to a Blood Tr: No Reviewed Nursing Assessment Reviewed/Agree w Nursing PMH: Yes Family Medical History Significant Family History: No Pertinent Family Hx Family Hx: Review of Systems ROS-Unable to Obtain: Unable to ascertain she is intubated Constitutional: see HPI Physical Exam Physical Exam Vital Signs Vital Signs - First Documented 04/17/17 04/17/17 04/17/17 17:14 17:58 19:00 Temp 98.2 Pulse 124 Resp 24 B/P (MAP) 153/90 (111) Pulse Ox 35 O2 Delivery NIV Bilevel O2 Flow Rate 100.00 FiO2 100 Capillary Refill : Less Than 3 Seconds General Appearance: No Apparent Distress, WD/WN, Thin, Other (Intubated and sedated) Eyes: Bilateral Eye Normal Inspection, Bilateral Eye PERRL HEENT: Other (Endotracheal tube in place) Respiratory: Lungs Clear, Normal Breath Sounds, No Accessory Muscle Use, No Respiratory Distress, Other (On ventilator) Cardiovascular: Regular Rate, Rhythm, No Edema, No Gallop, No JVD, No Murmur, Normal Peripheral Pulses Gastrointestinal: Normal Bowel Sounds, No Organomegaly, No Pulsatile Mass, Soft Neurologic/Psychiatric: Other (Sedated) Skin: Normal Color, Warm/Dry Lymphatic: No Adenopathy Results Results/Procedures Lab Laboratory Tests 04/17/17 18:05 04/17/17 20:05 04/18/17 03:10 Assessment/Plan Admission Diagnosis Assessment: Acute pulmonary embolus suspected in the ER with respiratory failure requiring intubation and given TPA with good results then CT scan today revealed bilateral saddle pulmonary emboli with negative ultrasound for DVT Ventilator-dependent respiratory failure day #2 History of hip fracture repair with rapid recovery 02/05/17 had been ambulating without assistance for several weeks Irritable bowel syndrome Restless leg syndrome GERD Admission Status: Inpatient Order (span 2 midnights) Reason for Inpatient Admission: IV anticoagulation for critical saddle pulmonary emboli Assessment and Plan Plan: Heparin drip Monitor closely Maintain vent Greatly appreciate cardiology pulmonology and general surgery consultations Clinical Quality Measures DVT/VTE Risk/Contraindication: Risk Factor Score Per Nursin RFS Level Per Nursing on Admit: 4+=Very High FELY MCINTOSH DO Apr 18, 2017 11:09
--- NOTE | 2017-04-18 11:13 | Diagnostic Imaging Report ---
PROCEDURE: CT head with and without contrast. TECHNIQUE: Multiple contiguous axial images were obtained through the brain before and after the administration of intravenous contrast. INDICATION: Altered mental status and hypoxia. COMPARISON is made to a prior CT from 02/04/2017 FINDINGS: There is again a large degree of artifact related to the patient's right-sided bone anchored hearing aid and cochlear implant. Prior right mastoidectomy changes are noted with a small degree of density within the mastoidectomy bowl. Allowing for the artifact arising from this hardware, there is no evidence to suggest intracranial hemorrhage. There is no evidence of mass effect, shift or hydrocephalus. There is background microvascular changes within the white matter but no evidence to suggest territorial loss of connell-white differentiation. The mastoid air cells appear clear. The paranasal sinuses are clear. Postcontrast imaging demonstrates no evidence of pathologic intracranial enhancement. IMPRESSION: 1. Allowing for artifact due to the patient's right-sided cochlear implant, no evidence of an acute intracranial abnormality. There has been no evidence of significant interval change compared to the prior exam. 2. Operative changes of a right cochlear implant and bone anchored hearing aid with a small degree of presumed granulation tissue within the prior mastoidectomy bowl. 3. No evidence of pathologic intracranial enhancement. Dictated by: Dictated on workstation # [id number]
--- NOTE | 2017-04-18 11:16 | Diagnostic Imaging Report ---
CHEST 1 VIEW, AP/PA ONLY INDICATION: Intubation. COMPARISON: 04/17/2017 FINDINGS: Support Devices: Stable ET and enteric tubes. Chest: Lungs are clear. No pleural effusion or pneumothorax. Stable cardiomediastinal silhouette. IMPRESSION: 1. Stable support devices. 2. No adverse development. Dictated by: Dictated on workstation # [id number]
--- NOTE | 2017-04-18 11:19 | Diagnostic Imaging Report ---
PROCEDURE: CT angiography of the chest with contrast. TECHNIQUE: Multiple contiguous axial images were obtained through the chest after uneventful bolus administration of intravenous contrast. Reconstructed CTA MIP acquisitions were also performed. INDICATION: Hypoxia. FINDINGS: There is good opacification of the aorta and pulmonary arteries. FINDINGS: The aorta shows atherosclerotic changes without aneurysm. There is a saddle embolus present in the pulmonary artery extending into both the right and left upper lobe pulmonary arteries. There is some extending into the lower lobes, as well. Mild atelectasis and interstitial lung disease noted in the left lower lung. There is mild cardiomegaly. No pleural effusions or pericardial effusion. ET tube is in good position. No mediastinal or hilar adenopathy of pathologic size. No bony lesions. IMPRESSION: 1. There is large saddle embolus present in the pulmonary artery extending into the upper and lower lobes bilaterally. 2. Mild atelectasis and interstitial infiltrate in the left lung base. CRITICAL FINDINGS Report given to patient's nurse (Ann) at 11:18 a.m. 04/18/2017/cb Dictated by: Dictated on workstation # [id number]
--- NOTE | 2017-04-18 14:02 | Consultation-Cardiology ---
HPI-Cardiology Cardiology Consultation: Date of Consultation 04/18/17 Time Seen by Provider: 13:10 Date of Admission Attending Physician Fely Mcintosh DO Admitting Physician Kaden Wang MD Consulting Physician LAYLA ELLISON MD, MA, FACP, FACC, FSCAI, CCDS HPI: Chief Complaint: Reason for consultation: Acute resp failure 81 yo woman who had sudden onset of shortness of breath, followed by syncope. Was diagnosed with massive pulm embolism in the ER, intubated, mechanically ventilated, and treated with TPA followed by iv heparin. Remains on mech vent. Not able to provide any history Review of Systems-Cardiology Review of Systems Constitutional: other (Intubated, sedated and on mech vent. Not able to provide any history or review of systems) AAQ-[id number]-[id number] Hx Patient Social History Alcohol Use: Denies Use Smoking Status: Unknown if Ever Smoked Recent Infectious Disease Expo: No Hospitalization with Isolation: Denies Immunizations Up To Date Date of Pneumonia Vaccine: Nov 17, 2011 Date of Influenza Vaccine: Dec 07, 2012 Past Medical History PMH As described under Assessment. Family Medical History Family Medical History: Does not report fam h/o or early CAD or SCD (taken from previous records) Family History: Allergies and Home Medications Allergies Coded Allergies: No Known Drug Allergies (Unverified , 02/04/17) Home Medications Calcium Carbonate/Vitamin D3 1 Each Tablet, 1 TAB PO DAILY, (Reported) Hydrocodone/Acetaminophen 1 Each Tablet, 1 EA PO Q4HR PRN for PAIN-MODERATE Prescribed by: MARYLOU CYR on 02/18/171949 Magnesium Oxide 250 Mg Tablet, 250 MG PO DAILY, (Reported) Multivitamin 1 Each Tablet, 1 TAB PO DAILY, (Reported) Omeprazole 20 Mg Capsule.dr, 20 MG PO BID, (Reported) Rivaroxaban 10 Mg Tablet, 10 MG PO DAILY@1800 Prescribed by: MARYLOU CYR on 02/18/171949 Ropinirole HCl 1 Mg Tablet, 1 MG PO HS, (Reported) Triamcinolone Acet 15 Gm Cr, 0 GM TP BID Prescribed by: MARYLOU CYR on 02/18/171949 Patient Home Medication List Home Medication List Reviewed: Yes Physical Exam-Cardiology Physical Exam Vital Signs/I&O Vital Sign - Last 12Hours 04/18/17 04/18/17 04/18/17 04/18/17 02:00 03:00 03:00 03:30 Temp 97.4 Pulse 82 84 78 Resp 23 B/P (MAP) 127/78 (94) 143/88 (106) Pulse Ox 99 100 96 O2 Delivery Mechanical Ventilator Mechanical Ventilator Mechanical Ventilator O2 Flow Rate 100.00 100.00 80.00 FiO2 80 04/18/17 04/18/17 04/18/17 04/18/17 03:46 04:00 04:00 04:15 Pulse 83 89 Resp B/P (MAP) 129/78 (95) Pulse Ox 99 O2 Delivery Mechanical Ventilator Mechanical Ventilator Mechanical Ventilator O2 Flow Rate 80.00 70.00 FiO2 80 04/18/17 04/18/17 04/18/17 04/18/17 04:20 05:00 05:00 05:32 Pulse 85 89 89 Resp B/P (MAP) 108/71 (83) Pulse Ox 99 96 97 O2 Delivery Mechanical Ventilator Mechanical Ventilator O2 Flow Rate 80.00 60.00 FiO2 70 04/18/17 04/18/17 04/18/17 04/18/17 06:00 06:02 06:57 07:00 Pulse 86 89 88 87 Resp B/P (MAP) 122/76 (91) Pulse Ox 97 97 100 O2 Delivery Mechanical Ventilator O2 Flow Rate 60.00 FiO2 60 04/18/17 04/18/17 04/18/17 04/18/17 07:00 07:07 07:30 07:44 Temp 98.4 Pulse 89 95 Resp B/P (MAP) 141/90 (107) Pulse Ox 100 100 O2 Delivery Mechanical Ventilator Mechanical Ventilator Mechanical Ventilator Mechanical Ventilator O2 Flow Rate 60.00 50.00 50.00 FiO2 50 04/18/17 04/18/17 04/18/17 04/18/17 08:00 08:40 09:00 10:00 Pulse 92 89 86 87 Resp 23 B/P (MAP) 150/92 (111) 140/88 (105) 128/80 (96) Pulse Ox 99 99 98 99 O2 Delivery Mechanical Ventilator Mechanical Ventilator Mechanical Ventilator O2 Flow Rate 50.00 50.00 50.00 FiO2 50 18 18 04/18/17 04/18/17 10:32 10:55 11:00 11:10 Temp 97.7 Pulse 88 75 75 77 Resp 24 24 24 B/P (MAP) 131/84 94/63 (73) 93/65 (74) Pulse Ox 96 97 99 O2 Delivery Mechanical Ventilator Mechanical Ventilator O2 Flow Rate 50.00 50.00 FiO2 50 04/18/17 11:11 O2 Delivery Mechanical Ventilator FiO2 50 Intake and Output 04/18/17 00:00 Intake Total 100 ml Output Total 200 ml Balance -100 ml Capillary Refill : Less Than 3 Seconds Constitutional: other (intubated, sedated, on mech vent) HEENT: PERRL, No xanthelasmas are seen Neck: carotid pulses are 2 + bilaterally, with good upstrokes Respiratory: other (Does not appear to have spontaneous resp; on mech vent; good bilat air entry) Cardiovascular: regular rate-rhythm, No JVD, S1 and S2, systolic murmur (3/6 MSM at card base) Gastrointestinal: soft, No guarding, No rebound, audible bowel sounds Extremities: No clubbing, No cyanosis, No significant edema Neurologic/Psychiatric: other (She cannot cooperate with a neurologic exam due to reasons noted above) Skin: No rash on exposed areas, No ulcerations on exposed areas Lymphatic: no adenopathy Data Review Labs Laboratory Tests 04/17/17 17:44: Blood Gas Puncture Site RIGHT RADIAL, Blood Gas Patient Temperature 96.6, Arterial Blood pH 7.31*L, Arterial Blood Partial Pressure CO2 48H, Arterial Blood Partial Pressure O2 30*L, Arterial Blood HCO3 24, Arterial Blood Total CO2 25.5, Arterial Blood Oxygen Saturation 48L, Arterial Blood Base Excess -1.7 , Devon Test POSITIVE, Blood Gas Ventilator Setting YES, Blood Gas Inspired Oxygen 100% 04/17/17 18:05: White Blood Count 11.1H, Red Blood Count 3.84L, Hemoglobin 12.3, Hematocrit 39, Mean Corpuscular Volume 101H, Mean Corpuscular Hemoglobin 32, Mean Corpuscular Hemoglobin Concent 32, Red Cell Distribution Width 13.6, Platelet Count 117L, Mean Platelet Volume 11.4H, Neutrophils (%) (Auto) 63, Lymphocytes (%) (Auto) 29 , Monocytes (%) (Auto) 7, Eosinophils (%) (Auto) 1, Basophils (%) (Auto) 0, Neutrophils # (Auto) 7.0, Lymphocytes # (Auto) 3.2, Monocytes # (Auto) 0.7, Eosinophils # (Auto) 0.2, Basophils # (Auto) 0.0, Prothrombin Time 11.6L, INR Comment 0.8, Activated Partial Thromboplast Time 20L, D-Dimer > 20.00*H, Sodium Level 138, Potassium Level 3.6, Chloride Level 104, Carbon Dioxide Level 21, Anion Gap 13, Blood Urea Nitrogen 15, Creatinine 0.72, Estimat Glomerular Filtration Rate > 60, BUN/Creatinine Ratio 21, Glucose Level 230H, Calcium Level 8.6, Magnesium Level 1.8, Total Bilirubin 0.5, Aspartate Amino Transf (AST /SGOT) 35H, Alanine Aminotransferase (ALT/SGPT) 23, Alkaline Phosphatase 142H, Myoglobin 166.5H, Troponin I < 0.30, B-Type Natriuretic Peptide 32.6, Total Protein 6.3L, Albumin 3.8 04/17/17 20:05: Platelet Count 120L, Activated Partial Thromboplast Time 68H 04/18/17 00:40: Activated Partial Thromboplast Time > 200*H 04/18/17 03:10: White Blood Count 7.1, Red Blood Count 3.62L, Hemoglobin 11.6, Hematocrit 36, Mean Corpuscular Volume 99, Mean Corpuscular Hemoglobin 32, Mean Corpuscular Hemoglobin Concent 33, Red Cell Distribution Width 13.6, Platelet Count 103L, Mean Platelet Volume 10.9H, Neutrophils (%) (Auto) 77H, Lymphocytes (%) (Auto) 16, Monocytes (%) (Auto) 6, Eosinophils (%) (Auto) 0, Basophils (%) (Auto) 0, Neutrophils # (Auto) 5.5, Lymphocytes # (Auto) 1.2, Monocytes # (Auto) 0.4, Eosinophils # (Auto) 0.0, Basophils # (Auto) 0.0, Sodium Level 137, Potassium Level 4.1, Chloride Level 105, Carbon Dioxide Level 23, Anion Gap 9, Blood Urea Nitrogen 16, Creatinine 0.70, Estimat Glomerular Filtration Rate > 60, BUN/ Creatinine Ratio 23, Glucose Level 157H, Calcium Level 8.6, Phosphorus Level 3.4 , Magnesium Level 1.6L, Total Bilirubin 0.5, Aspartate Amino Transf (AST/SGOT) 52H, Alanine Aminotransferase (ALT/SGPT) 39, Alkaline Phosphatase 137H, Total Protein 5.8L, Albumin 3.4, Triglycerides Level 152H, Cholesterol Level 167, LDL Cholesterol Direct 91, VLDL Cholesterol 30, HDL Cholesterol 57 04/18/17 06:10: Prothrombin Time 19.9H, INR Comment 1.7H, Activated Partial Thromboplast Time 179*H 04/18/17 12:41: Glucometer 119H 04/18/17 13:37: Laboratory Tests 04/17/17 18:05 04/17/17 20:05 04/18/17 03:10 A/P-Cardiology Assessment/Admission Diagnosis Acute resp failure due to massive pulm embolism, being managed by the Pulm/ICU service Bipolar R hemiarthroplasty on 02/04/17 for R hip fracture due a nonsyncopal fall Severe aortic stenosis. Echo of shows aortic valve area 0.8 sq cm, LVEF 55-60%, PASP 35 mmHg and grade I diastolic dysfunction of the LV. Repeat echo of 04/17/17 shows LVEF 45-50%, AoV area approx 1 sq cm, grade I rodrigues dysfunction No significant CAD on card cath of 2012 Discussion and Recomendations * Pt critically ill * Management complex * Continue current regimen * Monitor labs Clinical Quality Measures DVT/VTE Risk/Contraindication: Risk Factor Score Per Nursin RFS Level Per Nursing on Admit: 4+=Very High LAYLA ELLISON MD FACP [facility] Apr 18, 2017 14:02
[2017-04-18] MEDS: NS IV 1000 ML 1,000 ML IV SCH (14:19)
[2017-04-18] MEDS ORDERED: NS IV 500 ML 500 ML ONE (22:22)
[2017-04-19] VITALS (35 sets, daily range): BP systolic 78–152; BP diastolic 49–95
[2017-04-19] MEDS: PROPOFOL DRIP (ICU) 100 ML IV SCH ×4 (00:02→14:21)
[2017-04-19] MEDS ORDERED: NS IV 500 ML 500 ML ONE (01:52)
[2017-04-19] MEDS ORDERED: NS IV 500 ML 500 ML IV ONE (02:00)
[2017-04-19] MEDS: RT-ALBUTEROL/IPRATROPIUM 3 ML (DUONEB) VIAL INH SCH ×6 (02:38→22:25)
[2017-04-19] MEDS ORDERED: NS IV 1000 ML 1,000 ML IV SCH (03:00)
[2017-04-19 03:47] LABS: BASOPHILS % (AUTO) 0 % (0-10); EOSINOPHILS % (AUTO) 0 % (0-10); HEMATOCRIT 31 % (35-52); HEMOGLOBIN 10.1 G/DL (11.5-16.0); LYMPHOCYTES # (AUTO) 1.8 X 10^3 (1.0-4.0); LYMPHOCYTES % (AUTO) 25 % (12-44); MEAN CORPUSCULAR HEMOGLOBIN 32 PG (25-34); MEAN CORPUSCULAR HGB CONC 32 G/DL (32-36); MEAN CORPUSCULAR VOLUME 99 FL (80-99); MEAN PLATELET VOLUME 11.2 FL (7.4-10.4); MONOCYTES # (AUTO) 0.7 X 10^3 (0.0-1.0); MONOCYTES % (AUTO) 9 % (0-12); NEUTROPHILS # (AUTO) 4.6 X 10^3 (1.8-7.8); NEUTROPHILS % (AUTO) 65 % (42-75); PLATELET COUNT 100 10^3/uL (130-400); RED BLOOD COUNT 3.17 10^6/uL (4.35-5.85); RED CELL DISTRIBUTION WIDTH 13.9 % (10.0-14.5); WHITE BLOOD COUNT 7.2 10^3/uL (4.3-11.0)
[2017-04-19 04:16] LABS: BUN/CREATININE RATIO 10; CALCIUM 7.7 MG/DL (8.5-10.1); CARBON DIOXIDE 19 MMOL/L (21-32); CHLORIDE 114 MMOL/L (98-107); CREATININE SERUM 0.67 MG/DL (0.60-1.30); GFR ESTIMATED > 60; GLUCOSE 144 MG/DL (70-105); MAGNESIUM 1.7 MG/DL (1.8-2.4); PHOSPHORUS 2.9 MG/DL (2.3-4.7); POTASSIUM 3.4 MMOL/L (3.6-5.0); SODIUM 144 MMOL/L (135-145)
[2017-04-19] MEDS: POTASSIUM CL 10MEQ/50ML IVPB 50 ML IV SCH ×3 (04:22→06:09)
[2017-04-19] MEDS: MAGNESIUM 1 GM/100 ML IVPB 100 ML IV SCH ×3 (04:23→06:09)
[2017-04-19] MEDS: HEParin DRIP 25000 UNIT/500ML 500 ML IV SCH (04:52)
[2017-04-19] MEDS: PANTOPRAZOLE 40 MG/10 ML (PROTONIX) VIAL IV SCH ×2 (08:40→20:23)
--- NOTE | 2017-04-19 09:44 | Diagnostic Imaging Report ---
INDICATION: Respiratory failure EXAM: Portable chest at 3:39 AM FINDINGS: There is an ET tube projecting over the trachea. NG tube projects over the stomach. Heart size and pulmonary vascularity are normal. The lungs are clear. There are no effusions or pneumothoraces. IMPRESSION: No acute abnormalities of the chest. Dictated by: Dictated on workstation # [id number]
[2017-04-19] MEDS: fentaNYL INJECTION 100 MCG/2 ML AMP IVP PRN ×2 (09:45→14:33)
[2017-04-19] MEDS: NS IV 1000 ML 1,000 ML IV SCH (10:47)
--- NOTE | 2017-04-19 11:52 | Progress Note-Hospitalist ---
Progress Note HPI/CC on Admission CC: Wheezing and respiratory failure while at [facility] ice cream store HPI: This is a 81-year-old white female clinic patient of mine for the past 8 years with a past medical history of restless leg syndrome and irritable bowel syndrome with GERD with multiple colonoscopies and EGDs in the past by Dr. Choudhury who recently had a right hip fracture repair on 02/05/17 after a fall. She actually did very well was discharged to rehabilitation had no significant medical issues during rehabilitation stay was able to ambulate well and had no delay in her recovery and I had seen her in the clinic twice since her discharge from the hospital and she was doing well and ambulating without a cane or a walker. She did not have any history of calf pain or any other issues while she was hospitalized or after discharge. Apparently she went to the ice cream store yesterday began an abrupt onset of wheezing while in the store and suffered respiratory failure and ambulance was called and she was found to be in respiratory failure in the ER was intubated and managed for her critical illness. She was given TPA for presumed acute TPA causing syncope with good results and this morning she is oxygenating well on ventilator and I greatly appreciate cardiology and pulmonology and Gen. surgery Central line placement and managing this critically ill patient. Progress Notes/Assess & Plan Date Seen 04/19/17 Time Seen by Provider: 10:50 Admission Dx/Process Assessment: Acute pulmonary embolus suspected in the ER with respiratory failure requiring intubation and given TPA with good results then CT scan today revealed bilateral saddle pulmonary emboli with negative ultrasound for DVT Ventilator-dependent respiratory failure day #2 History of hip fracture repair with rapid recovery 02/05/17 had been ambulating without assistance for several weeks Irritable bowel syndrome Restless leg syndrome GERD Diagonsis/Assessment & Plan Patient doing better. Still on vent Daughter arrived yesterday at 1400. Pt stable and improved AFVSS, sedated, daughter at bedside RRR, CTAB no rales noted No edema Laboratory Tests 04/19/17 03:40 Assessment: Acute pulmonary embolus suspected in the ER with respiratory failure requiring intubation and given TPA with good results then CT scan yesterday revealed bilateral saddle pulmonary emboli with negative ultrasound for DVT Ventilator-dependent respiratory failure day #3 History of hip fracture repair with rapid recovery 02/05/17 had been ambulating without assistance for several weeks Irritable bowel syndrome Restless leg syndrome GERD Plan: Heparin drip Monitor closely Maintain vent Greatly appreciate cardiology pulmonology and general surgery consultations DUNG KEYS DO Apr 19, 2017 11:52
--- NOTE | 2017-04-19 12:06 | Progress Note-Cardiology ---
Cardiology SOAP Progress Note Subjective: Still intubated and on mech vent. Daughter by bedside Objective: I&O/Vital Signs Vital Sign - Last 12Hours 04/19/17 04/19/17 04/19/17 04/19/17 00:27 01:00 01:05 02:00 Pulse 89 87 91 90 Resp 24 24 23 B/P (MAP) 116/75 (89) 78/49 (59) Pulse Ox 98 97 96 O2 Delivery Mechanical Ventilator Mechanical Ventilator O2 Flow Rate 30.00 30.00 FiO2 30 04/19/17 04/19/17 04/19/17 04/19/17 02:38 03:00 04:00 04:00 Pulse 87 86 85 Resp 24 24 24 B/P (MAP) 91/65 (74) 136/81 (99) Pulse Ox 97 98 97 O2 Delivery Mechanical Ventilator Mechanical Ventilator Mechanical Ventilator O2 Flow Rate 30.00 30.00 FiO2 30 30 04/19/17 04/19/17 04/19/17 04/19/17 04:14 04:53 05:00 05:00 Pulse 81 87 85 84 Resp 24 17 30 B/P (MAP) 137/84 (101) Pulse Ox 98 100 95 O2 Delivery Mechanical Ventilator O2 Flow Rate 30.00 FiO2 30 04/19/17 04/19/17 04/19/17 04/19/17 06:00 06:38 07:00 07:19 Temp 97.1 Pulse 87 85 95 Resp 24 24 B/P (MAP) 132/84 (100) Pulse Ox 98 99 99 O2 Delivery Mechanical Ventilator Mechanical Ventilator O2 Flow Rate 30.00 30.00 FiO2 30 04/19/17 04/19/17 04/19/17 04/19/17 07:21 08:29 08:57 09:00 Pulse 90 101 101 Resp 24 27 25 B/P (MAP) 134/80 (98) 120/71 (87) Pulse Ox 98 98 99 O2 Delivery Mechanical Ventilator Mechanical Ventilator Mechanical Ventilator O2 Flow Rate 30.00 30.00 FiO2 30 30 04/19/17 04/19/17 04/19/17 04/19/17 09:45 10:00 10:13 10:13 Pulse 108 96 97 Resp 24 24 B/P (MAP) 104/59 (74) Pulse Ox 97 100 O2 Delivery Mechanical Ventilator Mechanical Ventilator O2 Flow Rate 30.00 21.00 FiO2 30 04/19/17 04/19/17 11:30 11:32 Temp 98.2 Pulse 103 Resp 29 B/P (MAP) 129/73 (91) Pulse Ox 92 O2 Delivery Mechanical Ventilator Mechanical Ventilator O2 Flow Rate 21.00 FiO2 21 Intake and Output 04/19/17 00:00 Intake Total 1500 ml Output Total 1975 ml Balance -475 ml Weight (Pounds): 140 Weight (Ounces): 2.0 Weight (Calculated Kilograms): [id number] Constitutional: other (intubated, sedated, on mech vent) Respiratory: other (Does not appear to have spontaneous resp; on mech vent; good bilat air entry) Cardiovascular: regular rate-rhythm, No JVD, S1 and S2, systolic murmur (3/6 MSM at card base) Gastrointestional: soft, No guarding, No rebound, audible bowel sounds Extremities: No clubbing, No cyanosis, No significant edema Neurologic/Psychiatric: other (She cannot cooperate with a neurologic exam due to reasons noted above) Skin: No rash on exposed areas, No ulcerations on exposed areas Results/Procedures: Labs Laboratory Tests 04/18/17 12:41: Glucometer 119H 04/18/17 13:37: Activated Partial Thromboplast Time 91H 04/18/17 18:13: Glucometer 114H 04/18/17 19:29: Activated Partial Thromboplast Time 73H 04/19/17 00:05: Glucometer 146H 04/19/17 03:40: White Blood Count 7.2, Red Blood Count 3.17L, Hemoglobin 10.1L, Hematocrit 31L, Mean Corpuscular Volume 99, Mean Corpuscular Hemoglobin 32, Mean Corpuscular Hemoglobin Concent 32, Red Cell Distribution Width 13.9, Platelet Count 100L, Mean Platelet Volume 11.2H, Neutrophils (%) (Auto) 65, Lymphocytes (%) (Auto) 25 , Monocytes (%) (Auto) 9, Eosinophils (%) (Auto) 0, Basophils (%) (Auto) 0, Neutrophils # (Auto) 4.6, Lymphocytes # (Auto) 1.8, Monocytes # (Auto) 0.7, Eosinophils # (Auto) 0.0, Basophils # (Auto) 0.0, Sodium Level 144, Potassium Level 3.4L, Chloride Level 114H, Carbon Dioxide Level 19L, Anion Gap 11, Blood Urea Nitrogen 7, Creatinine 0.67, Estimat Glomerular Filtration Rate > 60, BUN/ Creatinine Ratio 10, Glucose Level 144H, Calcium Level 7.7L, Phosphorus Level 2.9, Magnesium Level 1.7L Microbiology 04/17/17 MRSA Screen - Final, Complete Laboratory Tests 04/17/17 18:05 04/17/17 20:05 04/18/17 03:10 04/19/17 03:40 A/P: Assessment: Acute resp failure due to massive pulm embolism, being managed by the Pulm/ICU service Hypokalemia Bipolar R hemiarthroplasty on 02/04/17 for R hip fracture due a nonsyncopal fall Severe aortic stenosis. Echo of shows aortic valve area 0.8 sq cm, LVEF 55-60%, PASP 35 mmHg and grade I diastolic dysfunction of the LV. Repeat echo of 04/17/17 shows LVEF 45-50%, AoV area approx 1 sq cm, grade I rodrigues dysfunction No significant CAD on card cath of 2012 Plan: * Replenish lytes * Monitor labs * I spoke with her daughter and answered CV-related questions LAYLA ELLISON MD FACP FAC CCDS Apr 19, 2017 12:06
--- NOTE | 2017-04-19 17:23 | Pulmonary Progress Note ---
Subjective Time Seen by Provider: 17:23 Subjective/Events-last exam Pt appears to be doing much better. Exam Exam Vital Signs Date Time Temp Pulse Resp B/P (MAP) Pulse Ox O2 Delivery O2 Flow Rate FiO2 04/19/17 16:48 93 24 90 21 04/19/17 16:15 99.8 94 127/71 (89) 93 Mechanical Ventilator 21.00 04/19/17 15:33 Mechanical Ventilator 28 04/19/17 14:25 96 Mechanical Ventilator 28.00 04/19/17 14:21 104 120/71 04/19/17 14:16 90 24 94 21 04/19/17 14:02 92 24 122/77 (92) 95 Mechanical Ventilator 21.00 04/19/17 13:00 103 04/19/17 13:00 103 24 122/68 (86) 93 Mechanical Ventilator 21.00 04/19/17 12:41 98 25 96 21 04/19/17 12:00 101 24 124/73 (90) 94 Mechanical Ventilator 21.00 04/19/17 11:32 98.2 103 29 129/73 (91) 92 Mechanical Ventilator 21.00 04/19/17 11:30 Mechanical Ventilator 21 04/19/17 11:00 101 24 113/65 (81) 94 Mechanical Ventilator 21.00 04/19/17 10:13 Mechanical Ventilator 21.00 04/19/17 10:13 97 24 100 30 04/19/17 10:00 96 24 104/59 (74) 97 Mechanical Ventilator 30.00 04/19/17 09:45 108 04/19/17 09:00 101 25 120/71 (87) 99 Mechanical Ventilator 30.00 04/19/17 08:57 101 27 134/80 (98) 98 Mechanical Ventilator 30.00 04/19/17 08:29 90 24 98 30 04/19/17 07:21 Mechanical Ventilator 30 04/19/17 07:19 97.1 99 Mechanical Ventilator 30.00 04/19/17 07:00 95 04/19/17 06:38 85 24 99 30 18 06:00 87 24 132/84 (100) 98 Mechanical Ventilator 30.00 04/19/17 05:00 84 30 95 04/19/17 05:00 85 17 137/84 (101) 100 Mechanical Ventilator 30.00 04/19/17 04:53 87 04/19/17 04:14 81 24 98 30 04/19/17 04:00 Mechanical Ventilator 30 04/19/17 04:00 85 24 136/81 (99) 97 Mechanical Ventilator 30.00 04/19/17 03:00 86 24 91/65 (74) 98 Mechanical Ventilator 30.00 04/19/17 02:38 87 24 97 30 04/19/17 02:00 90 23 78/49 (59) 96 Mechanical Ventilator 30.00 04/19/17 01:05 91 04/19/17 01:00 87 24 116/75 (89) 97 Mechanical Ventilator 30.00 04/19/17 00:27 89 24 98 30 04/19/17 00:02 89 04/19/17 00:00 Mechanical Ventilator 30 04/19/17 00:00 89 23 99/65 (76) 97 Mechanical Ventilator 30.00 04/18/17 23:00 82 24 125/72 (89) 97 Mechanical Ventilator 30.00 04/18/17 22:18 90 24 97 30 04/18/17 22:00 91 23 87/56 (66) 97 Mechanical Ventilator 30.00 04/18/17 21:00 92 23 116/69 (85) 98 Mechanical Ventilator 30.00 04/18/17 20:18 92 24 98 30 04/18/17 20:00 Mechanical Ventilator 30 04/18/17 20:00 98 24 124/76 (92) 97 Mechanical Ventilator 30.00 04/18/17 19:15 98.9 Mechanical Ventilator 30.00 04/18/17 19:09 105 154/82 04/18/17 19:00 101 15 133/75 (94) 97 Mechanical Ventilator 30.00 04/18/17 19:00 103 04/18/17 18:25 79 24 97 30 04/18/17 18:00 81 24 124/71 (88) 96 Mechanical Ventilator 30.00 I & O 04/19/17 07:00 Intake Total 3850 ml Output Total 2975 ml Balance 875 ml General Appearance: No Apparent Distress, WD/WN, Thin, Other (Intubated and sedated) HEENT: Other (Endotracheal tube in place) Neck: Normal Inspection, Non Tender, Supple Respiratory: Lungs Clear, Normal Breath Sounds, No Accessory Muscle Use, No Respiratory Distress, Other (On ventilator) Cardiovascular: Regular Rate, Rhythm, No Edema, No Gallop, No JVD, No Murmur, Normal Peripheral Pulses Capillary Refill: Less Than 3 Seconds Gastrointestinal: soft, no organomegaly Neurologic/Psychiatric: Other (Sedated) Skin: Normal Color, Warm/Dry Lymphatic: No Adenopathy Results Lab Laboratory Tests 04/17/17 18:05 04/17/17 20:05 04/18/17 03:10 04/19/17 03:40 Assessment/Plan Assessment/Plan Probable Acute PE with syncope -Heparin gtt -Echocardiogram -No sticks for 24hrs after TPA -dopplers LE Acute respiratory failure -Continue ventilator therapy -Will attempt to wean and extubate -CTA of chest- reviewed 233 Critical Care: Critically Ill Patient HAYLEY MURRAY DO Apr 19, 2017 17:23
[2017-04-19 18:04] LABS: ABG BASE EXCESS -2.3 MMOL/L (-2.5-2.5); ABG OXYGEN SATURATION 100 % (94-100); ABG PCO2 31 MMHG (35-45); ABG PH 7.45 (7.37-7.43); ABG PO2 155 MMHG (79-93); ALLENS TEST POSITIVE; INSPIRED O2 25%; PATIENT TEMP 99.2; VENTILATOR YES
[2017-04-19] MEDS ORDERED: HEParin 1000 UNIT/ML (10ML VIAL) FOR BOLUS ONE (20:17)
[2017-04-19] MEDS ORDERED: HEParin 1000 UNIT/ML (10ML VIAL) FOR BOLUS IV SCH (20:30)
[2017-04-20] VITALS (13 sets, daily range): BP systolic 113–139; BP diastolic 59–97
[2017-04-20] MEDS: RT-ALBUTEROL/IPRATROPIUM 3 ML (DUONEB) VIAL INH SCH ×6 (02:13→22:07)
[2017-04-20] MEDS ORDERED: RT-epiNEPHrine (RACEMIC) 2.25% 0.5 ML VIAL INH ONE (02:15)
[2017-04-20 02:32] LABS: BASOPHILS % (AUTO) 0 % (0-10); EOSINOPHILS # (AUTO) 0.1 10^3/uL (0.0-0.3); EOSINOPHILS % (AUTO) 1 % (0-10); HEMATOCRIT 33 % (35-52); HEMOGLOBIN 10.6 G/DL (11.5-16.0); LYMPHOCYTES # (AUTO) 1.8 X 10^3 (1.0-4.0); LYMPHOCYTES % (AUTO) 19 % (12-44); MEAN CORPUSCULAR HEMOGLOBIN 32 PG (25-34); MEAN CORPUSCULAR HGB CONC 32 G/DL (32-36); MEAN CORPUSCULAR VOLUME 100 FL (80-99); MEAN PLATELET VOLUME 10.7 FL (7.4-10.4); MONOCYTES # (AUTO) 0.9 X 10^3 (0.0-1.0); MONOCYTES % (AUTO) 10 % (0-12); NEUTROPHILS # (AUTO) 6.7 X 10^3 (1.8-7.8); NEUTROPHILS % (AUTO) 71 % (42-75); PLATELET COUNT 129 10^3/uL (130-400); RED BLOOD COUNT 3.32 10^6/uL (4.35-5.85); RED CELL DISTRIBUTION WIDTH 14.2 % (10.0-14.5); WHITE BLOOD COUNT 9.5 10^3/uL (4.3-11.0)
[2017-04-20 02:48] LABS: BUN/CREATININE RATIO 6; CALCIUM 8.6 MG/DL (8.5-10.1); CARBON DIOXIDE 26 MMOL/L (21-32); CHLORIDE 115 MMOL/L (98-107); CREATININE SERUM 0.66 MG/DL (0.60-1.30); GFR ESTIMATED > 60; GLUCOSE 132 MG/DL (70-105); PHOSPHORUS 2.8 MG/DL (2.3-4.7); POTASSIUM 3.3 MMOL/L (3.6-5.0); SODIUM 149 MMOL/L (135-145)
[2017-04-20] MEDS: POTASSIUM CL 10MEQ/50ML IVPB 50 ML IV SCH ×5 (04:43→06:20)
--- NOTE | 2017-04-20 05:09 | Pulmonary Progress Note ---
Subjective Time Seen by Provider: 05:14 Subjective/Events-last exam PT was extubated yesterday and is doing better. Exam Exam Vital Signs Date Time Temp Pulse Resp B/P (MAP) Pulse Ox O2 Delivery O2 Flow Rate FiO2 04/20/17 04:00 112 20 135/80 (98) 96 Nasal Cannula 3.00 04/20/17 03:44 95 Nasal Cannula 3.00 04/20/17 03:00 126 21 131/69 (89) 92 Nasal Cannula 3.00 04/20/17 02:13 95 Room Air 3.00 04/20/17 02:00 110 13 134/78 (96) 95 Nasal Cannula 3.00 04/20/17 01:00 113 9 113/75 (88) 94 Nasal Cannula 3.00 04/20/17 01:00 113 04/20/17 00:00 100.0 111 11 137/79 (98) 95 Nasal Cannula 3.00 04/20/17 00:00 95 Nasal Cannula 3.00 04/19/17 23:00 118 22 138/83 (101) 94 Nasal Cannula 3.00 04/19/17 22:25 95 Room Air 3.00 04/19/17 22:00 117 13 141/88 (105) 98 Nasal Cannula 3.00 04/19/17 21:00 116 14 128/92 (104) 98 Nasal Cannula 3.00 04/19/17 20:00 95 Nasal Cannula 3.00 04/19/17 20:00 116 16 152/78 (102) 97 Nasal Cannula 3.00 04/19/17 19:00 113 04/19/17 19:00 113 26 144/77 (99) 97 Nasal Cannula 3.00 04/19/17 18:27 96 Room Air 3.00 04/19/17 18:20 99 Nasal Cannula 3.00 04/19/17 18:00 104 20 141/87 (105) 95 Mechanical Ventilator 25.00 04/19/17 17:15 98 Mechanical Ventilator 25.00 04/19/17 17:00 96 23 133/78 (96) 92 Mechanical Ventilator 21.00 04/19/17 16:48 93 24 90 21 04/19/17 16:15 99.8 94 127/71 (89) 93 Mechanical Ventilator 21.00 04/19/17 15:33 Mechanical Ventilator 28 04/19/17 15:00 94 23 107/67 (80) 98 Mechanical Ventilator 28.00 04/19/17 14:25 96 Mechanical Ventilator 28.00 04/19/17 14:21 104 120/71 04/19/17 14:16 90 24 94 21 04/19/17 14:02 92 24 122/77 (92) 95 Mechanical Ventilator 21.00 04/19/17 13:00 103 04/19/17 13:00 103 24 122/68 (86) 93 Mechanical Ventilator 21.00 04/19/17 12:41 98 25 96 21 04/19/17 12:00 101 24 124/73 (90) 94 Mechanical Ventilator 21.00 04/19/17 11:32 98.2 103 29 129/73 (91) 92 Mechanical Ventilator 21.00 04/19/17 11:30 Mechanical Ventilator 21 04/19/17 11:00 101 24 113/65 (81) 94 Mechanical Ventilator 21.00 04/19/17 10:13 Mechanical Ventilator 21.00 04/19/17 10:13 97 24 100 30 04/19/17 10:00 96 24 104/59 (74) 97 Mechanical Ventilator 30.00 04/19/17 09:45 108 04/19/17 09:00 101 25 120/71 (87) 99 Mechanical Ventilator 30.00 04/19/17 08:57 101 27 134/80 (98) 98 Mechanical Ventilator 30.00 04/19/17 08:29 90 24 98 30 04/19/17 08:00 87 128/87 (101) Mechanical Ventilator 30.00 04/19/17 07:21 Mechanical Ventilator 30 04/19/17 07:19 97.1 99 Mechanical Ventilator 30.00 04/19/17 07:00 94 145/95 (112) Mechanical Ventilator 30.00 04/19/17 07:00 95 04/19/17 06:38 85 24 99 30 04/19/17 06:00 87 24 132/84 (100) 98 Mechanical Ventilator 30.00 I & O 04/20/17 07:00 Intake Total 1300 ml Output Total 3600 ml Balance -2300 ml General Appearance: WD/WN, Anxious, Thin HEENT: PERRL/EOMI, Pharynx Normal Neck: Normal Inspection, Non Tender, Supple Respiratory: Accessory Muscle Use, Decreased Breath Sounds, Wheezing Cardiovascular: Regular Rate, Rhythm, No Edema, No Gallop, No JVD, No Murmur, Normal Peripheral Pulses Capillary Refill: Less Than 3 Seconds Gastrointestinal: soft, no organomegaly Neurologic/Psychiatric: Alert, Oriented x3, Other (Sedated) Skin: Normal Color, Warm/Dry Lymphatic: No Adenopathy Results Lab Laboratory Tests 04/19/17 03:40 04/20/17 02:20 Assessment/Plan Assessment/Plan Probable Acute PE with syncope -Heparin gtt-- Change to Xarelto -dopplers LE-- were negative Acute respiratory failure -Continue ventilator therapy -Will attempt to wean and extubate -CTA of chest- reviewed Acute bronchitis -SVNS, solumedrol Hypernatremia, hyperchloremia -Hep lock NS 233 Critical Care: Critically Ill Patient HAYLEY MURRAY DO Apr 20, 2017 05:09
[2017-04-20] MEDS: MAGNESIUM 1 GM/100 ML IVPB 100 ML IV SCH (05:28)
[2017-04-20] MEDS: NYSTATIN ORAL SUSP 5 ML UDC PO SCH ×4 (05:46→23:46)
[2017-04-20] MEDS: methylPREDNISolone 40 MG/ML (Solu-MEDROL) VIAL IV SCH ×4 (05:46→23:46)
[2017-04-20] MEDS ORDERED: RT-epiNEPHrine (RACEMIC) 2.25% 0.5 ML VIAL ONE (06:34)
[2017-04-20] MEDS: RIVAROXABAN 15 MG TABLET (XARELTO) PO SCH ×2 (06:59→17:06)
--- NOTE | 2017-04-20 07:59 | Progress Note-Hospitalist ---
Subjective HPI/CC On Admission Date Seen by Provider: Apr 20, 2017 Time Seen by Provider: 07:56 CC: Wheezing and respiratory failure while at [facility] ice cream store HPI: This is a 81-year-old white female clinic patient of mine for the past 8 years with a past medical history of restless leg syndrome and irritable bowel syndrome with GERD with multiple colonoscopies and EGDs in the past by Dr. Choudhury who recently had a right hip fracture repair on 02/05/17 after a fall. She actually did very well was discharged to rehabilitation had no significant medical issues during rehabilitation stay was able to ambulate well and had no delay in her recovery and I had seen her in the clinic twice since her discharge from the hospital and she was doing well and ambulating without a cane or a walker. She did not have any history of calf pain or any other issues while she was hospitalized or after discharge. Apparently she went to the ice cream store yesterday began an abrupt onset of wheezing while in the store and suffered respiratory failure and ambulance was called and she was found to be in respiratory failure in the ER was intubated and managed for her critical illness. She was given TPA for presumed acute TPA causing syncope with good results and this morning she is oxygenating well on ventilator and I greatly appreciate cardiology and pulmonology and Gen. surgery Central line placement and managing this critically ill patient. Subjective/Events-last exam Pt reports feeling okay but complains of a cough. Has not been out of bed yet but would like to be. No other concerns or complaints. Does not feel SOB in bed. No chest pain. Has not eaten yet. Objective Exam Vital Signs Vital Signs Date Time Temp Pulse Resp B/P (MAP) Pulse Ox O2 Delivery O2 Flow Rate FiO2 04/17/17 17:14 35 NIV Bilevel 04/17/17 17:14 98.2 124 24 153/90 (111) 04/17/17 17:58 100 04/17/17 19:00 100.00 Capillary Refill : Less Than 3 Seconds General Appearance: No Apparent Distress, WD/WN Neck: No JVD Respiratory: Lungs Clear, No Respiratory Distress Cardiovascular: Regular Rate, Rhythm, No Murmur Gastrointestinal: Normal Bowel Sounds, Non Tender, Soft Extremity: No Calf Tenderness, No Pedal Edema Neurologic/Psychiatric: Alert, Oriented x3 Results/Procedures Lab Laboratory Tests 3/5/18 02:20 Assessment/Plan Assessment and Plan Assess & Plan/Chief Complaint Saddle PE Diagnosis/Problems Diagnosis/Problems (1) Pulmonary embolus Status: Acute Assessment & Plan: S/p TPA in ER Extubated yesterday evening Improving, on 3lpm via [place] Pulm consulted, appreciate recs Had hip fracture and repair in January- was on Xarelto during that time Will resume Xarelto Heparin gtt DC-ed Qualifiers: Qualified Codes: I26.92 - Saddle embolus of pulmonary artery without acute cor pulmonale (2) Anemia Status: Chronic Assessment & Plan: Stable, will trend Macrocytic- had elevated folate and normal B12 in 2013 Qualifiers: Qualified Codes: D64.9 - Anemia, unspecified (3) Thrombocytopenia Assessment & Plan: Chronic-likely consumptive from PE (4) Hypokalemia Assessment & Plan: Replaced in ICU this AM per protocol (5) Hypernatremia Assessment & Plan: Likely due to fluids Will DC (6) Aortic stenosis Assessment & Plan: Moderate stenosis on 2012 echo Cardiology consulted, appreciate recs Echo ordered Qualifiers: Qualified Codes: I35.0 - Nonrheumatic aortic (valve) stenosis (7) Status post total hip replacement, right Assessment & Plan: Ambulates with cane Will order PT/OT MARGARET LAMB MD Apr 20, 2017 07:59
--- NOTE | 2017-04-20 08:03 | Diagnostic Imaging Report ---
INDICATION: Intubation. COMPARISON: 04/19/2017. FINDINGS: The ET and enteric tubes have been removed. Scattered foci of atelectasis are present in lung bases. No lobar atelectasis or consolidation. No pleural effusion or pneumothorax. Stable borderline cardiomegaly. IMPRESSION: Interval extubation without adverse development. Dictated by: Dictated on workstation # [id number]
[2017-04-20] MEDS: PANTOPRAZOLE 40 MG/10 ML (PROTONIX) VIAL IV SCH ×2 (09:01→20:49)
--- NOTE | 2017-04-20 09:23 | Progress Note-Cardiology ---
Cardiology SOAP Progress Note Subjective: No cp or palp or syncope Mod shortness of breath Objective: I&O/Vital Signs Vital Sign - Last 12Hours 04/19/17 04/19/17 04/19/17 04/20/17 22:00 22:25 23:00 00:00 Pulse 117 118 Resp 13 22 B/P (MAP) 141/88 (105) 138/83 (101) Pulse Ox 98 95 94 95 O2 Delivery Nasal Cannula Room Air Nasal Cannula Nasal Cannula O2 Flow Rate 3.00 3.00 3.00 3.00 04/20/17 04/20/17 04/20/17 04/20/17 00:00 01:00 01:00 02:00 Temp 100.0 Pulse 111 113 113 110 Resp 11 9 13 B/P (MAP) 137/79 (98) 113/75 (88) 134/78 (96) Pulse Ox 95 94 95 O2 Delivery Nasal Cannula Nasal Cannula Nasal Cannula O2 Flow Rate 3.00 3.00 3.00 04/20/17 04/20/17 04/20/17 04/20/17 02:13 03:00 03:44 04:00 Pulse 126 112 Resp 21 20 B/P (MAP) 131/69 (89) 135/80 (98) Pulse Ox 95 92 95 96 O2 Delivery Room Air Nasal Cannula Nasal Cannula Nasal Cannula O2 Flow Rate 3.00 3.00 3.00 3.00 04/20/17 04/20/17 04/20/17 04/20/17 05:00 06:00 06:31 07:00 Pulse 111 100 100 Resp 20 15 B/P (MAP) 139/80 (99) 127/78 (94) Pulse Ox 97 97 98 O2 Delivery Nasal Cannula Nasal Cannula Room Air O2 Flow Rate 3.00 3.00 2.50 04/20/17 04/20/17 04/20/17 07:00 08:00 08:00 Temp 96.5 Pulse 100 105 Resp 21 18 B/P (MAP) 130/84 (99) 115/97 (103) Pulse Ox 98 98 O2 Delivery Nasal Cannula Nasal Cannula O2 Flow Rate 3.00 3.00 Intake and Output 04/20/17 00:00 Intake Total 150 ml Output Total 1850 ml Balance -1700 ml Weight (Pounds): 147 Weight (Ounces): 6.0 Weight (Calculated Kilograms): 66.864952 Constitutional: AAO x 3, well-developed, well-nourished Respiratory: other (fair bilat air entry; scattered rhonchi and wheezes) Cardiovascular: regular rate-rhythm, No JVD, S1 and S2, systolic murmur (3/6 MSM at card base) Gastrointestional: soft, No guarding, No rebound, audible bowel sounds Extremities: No clubbing, No cyanosis, No significant edema Neurologic/Psychiatric: oriented x 3, grossly intact, power is 5/5 both on sides Skin: No rash on exposed areas, No ulcerations on exposed areas Results/Procedures: Labs Laboratory Tests 04/19/17 13:27: Glucometer 125H 04/19/17 17:50: Blood Gas Puncture Site RIGHT RADIAL, Blood Gas Patient Temperature 99.2, Arterial Blood pH 7.45H, Arterial Blood Partial Pressure CO2 31L, Arterial Blood Partial Pressure O2 155H, Arterial Blood HCO3 21L, Arterial Blood Total CO2 22.0, Arterial Blood Oxygen Saturation 100, Arterial Blood Base Excess -2.3 , Devon Test POSITIVE, Blood Gas Ventilator Setting YES, Blood Gas Inspired Oxygen 25% 04/19/17 18:05: Glucometer 122H 04/19/17 19:20: Activated Partial Thromboplast Time 64H 04/20/17 02:20: White Blood Count 9.5, Red Blood Count 3.32L, Hemoglobin 10.6L, Hematocrit 33L, Mean Corpuscular Volume 100H, Mean Corpuscular Hemoglobin 32, Mean Corpuscular Hemoglobin Concent 32, Red Cell Distribution Width 14.2, Platelet Count 129L, Mean Platelet Volume 10.7H, Neutrophils (%) (Auto) 71, Lymphocytes (%) (Auto) 19 , Monocytes (%) (Auto) 10, Eosinophils (%) (Auto) 1, Basophils (%) (Auto) 0, Neutrophils # (Auto) 6.7, Lymphocytes # (Auto) 1.8, Monocytes # (Auto) 0.9, Eosinophils # (Auto) 0.1, Basophils # (Auto) 0.0, Activated Partial Thromboplast Time 100H, Sodium Level 149H, Potassium Level 3.3L, Chloride Level 115H, Carbon Dioxide Level 26, Anion Gap 8, Blood Urea Nitrogen 4L, Creatinine 0.66, Estimat Glomerular Filtration Rate > 60, BUN/Creatinine Ratio 6, Glucose Level 132H, Calcium Level 8.6, Phosphorus Level 2.8, Magnesium Level 2.0, B- Type Natriuretic Peptide 192.4H Microbiology 04/17/17 MRSA Screen - Final, Complete Laboratory Tests 04/19/17 03:40 04/20/17 02:20 A/P: Assessment: Acute resp failure due to massive pulm embolism, treated with thrombolysis and mech vent. Extubated on 04/20/17. Currently on rivaroxaban Hypokalemia Bipolar R hemiarthroplasty on 02/04/17 for R hip fracture due a nonsyncopal fall Severe aortic stenosis. Echo of shows aortic valve area 0.8 sq cm, LVEF 55-60%, PASP 35 mmHg and grade I diastolic dysfunction of the LV. Repeat echo of 04/17/17 shows LVEF 45-50%, AoV area approx 1 sq cm, grade I rodrigues dysfunction No significant CAD on card cath of 2012 Plan: * Replenish lytes * Monitor labs * I discussed her case with Dr Jean and LAYLA Grey MD FACP FAC CCDS Apr 20, 2017 09:23
--- NOTE | 2017-04-20 09:34 | Pulmonary Procedures ---
Pulmonary Procedures Date of Procedure Date of Service: Apr 20, 2017 Lumen: triple (US guided ) Central Line Procedure: betadine prep, sterile drapes applied, sterile dressing applied Position: internal jugular (R) Anesthesia: Lidocaine Volume Anesthetic (ccs): 5 Complications: none Post Position: sutured, good blood return, position confirmed w/ CXR (CXR is pending) HAYLEY MURRAY DO Apr 20, 2017 09:34
--- NOTE | 2017-04-20 11:13 | ST Dysphagia Evaluation ---
Speech Evaluation-General Medical Diagnosis Respiratory Distress Therapy Diagnosis Therapy Diagnosis: Severe Pharyngeal Dysphagia Precautions Precautions: Aspiration Precautions/Isolations: Fall Prevention, Standard Precautions Referral Referring Physician: Dr. Fely Mcintosh Reason for Referral: Evaluation/Treatment Bedside Swallowing Evaluation Medical History Pertinent Medical History: Arthritis, GERD Speech PLF/Current-Dysphagia Prior Level of Function The patient denied prior challenges with swallowing or signs/symptoms of aspiration or laryngeal penetration. Per patient, she consumed a regular diet with thin liquids at home. Subjective The patient was seated upright in recliner upon entrance. The patient greeted the clinician and was agreeable to participation in the dysphagia evaluation. Cognitive Status Patient Orientation: Person, Place, Time, Situation Oral Motor Skills Dentition: Natural Ability to Follow Directions: Excellent The patient is NPO pending results of swallowing evaluation. Oral Expression Ability: No Impairment Voice Voice Phonatory-Based Quality: Breathy, Weak Voice Pitch: Normal Voice Loudness: Moderately Soft/Quiet Face Facial Symmetry: Symmetrical Oral-Facial Assessment Oral-Facial Dentition: Normal Labial Seal Description: Normal Smile: Normal Puff Cheeks: Normal Lingual Protrusion: Normal Lingual ROM: Normal Lingual Strength: Normal Pharynx Velopharyngeal Move.: Normal Volitional Dry Swallow: Yes Voluntary Cough: Yes Can Clear Throat Volitionally: Yes Productive Cough: Yes Productive Throat Clear: Yes Dysphagia Evaluation Consistencies Presented: Thin Liquid (Via small sips (less than half teaspoon)) , Pureed No oral impairments were noted throughout the evaluation. Pharyngeal Phase: Multiple Swallow Attempts, Delayed Swallow - The patient grimaced with each swallow, reporting odynophagia with less than half teaspoon boluses. Funct. Velo/Pharyngeal Symptom: Clears Throat, Cough After Swallow - The patient demonstrated immediate and delayed coughing/throat clearing with all consistencies she consumed (thin liquid and puree). The patient's voice remained weak, raspy, and intermittently, aphonic. Per patient, "I'm just not ready." The clinician's recommendations correlate to the patient's statement as she demonstrated signs/symptoms of aspiration with all consistency she consumed (thick and thin). Dietary Recommendations: NPO Liquid Recommendations: NPO - The patient may swab her mouth intermittently with a moist (water) toothette. Dysphagia Evaluation Summary The patient demonstrated pharyngeal dysphagia characterized by poor airway protection throughout the swallow. The clinician believes the patient's vocal cords may not be completing closure upon the swallow due to edema following intubation. The clinician recommends re-assessing the patient's swallowing in 24 hours to allow for improvement of suspected vocal cord edema. The patient agrees with this plan of care. Speech Short Term Goals Short Term Goals Short Term Goals The patient will tolerate trials of the least restrictive diet without signs/ symptoms of aspiration or laryngeal penetration. Time Frame-STG: Three Days Speech Correction Goals Texture Artist Goals 1. The patient will tolerate a diet of the least restrictive consistency without signs/symptoms of aspiration or laryngeal penetration. Speech-Plan Treatment Plan Speech Therapy Treatment Plan: Continue Plan of Care Continue skilled speech pathology to target swallowing safety and PO intake. Treatment Duration: Apr 27, 2017 Frequency: 3 times per week Estimated Hrs Per Day: .25 hour per day Rehab Potential: Guarded Safety Risks/Education Teaching Recipient: Patient Teaching Methods: Discussion Response to Teaching: Verbalize Understanding Education Topics Provided: Results, Recommendations, Signs/Symptoms of Aspiration Time Speech Therapy Time In: 10:30 Speech Therapy Time Out: 10:45 Total Billed Time: 15 Billed Treatment Time 1, JONATHAN THOMAS Apr 20, 2017 11:13
--- NOTE | 2017-04-20 11:49 | Physical Therapy Evaluation ---
PT Evaluation-General Medical Diagnosis Admission Date Apr 17, 2017 at 18:38 Medical Diagnosis: Respiratory Distress Onset Date: Apr 17, 2017 Therapy Diagnosis Therapy Diagnosis: generalized weakness/debility Height/Weight Height (Feet): 5 Height (Inches): 3.00 Weight (Pounds): 147 Weight (Ounces): 6.0 Precautions Precautions/Isolations: Fall Prevention, Standard Precautions Weight Bear Status Right Lower Extremity: Right Weight Bearing/Tolerated Left Lower Extremity: Left Weight Bearing/Tolerated Referral Physician: Ted Reason for Referral: Evaluation/Treatment Medical History Pertinent Medical History: Arthritis, GERD Additional Medical History hip fracture 01/2017 Current History eating 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 Pain Numeric Pain Scale: 0-No Pain Location: No Pain Reported Objective Patient Orientation: Normal For Age Problem Solving: Fair Attachments: Oxygen, Barron Catheter ROM/Strength ROM Lower Extremities bilateral LE WNL Strength Lower Extremities right knee flexion/extension 3+/5; hip flexion 3+/5; DF/PF 3+/5 left knee flexion/extension 3+/5; hip flexion 3+/5; DF/PF 3+/5 Integumentary/Posture Integumentary refer to nursing notes Bowel Incontinence: No Bladder Incontinence: Barron Cath Posture WFL Neuromuscular (Tone, Coordination, Reflexes) slightly diminished coordination due to weakness Sensory Vision: Functional Hearing: Impaired Sensation Right Lower Extremit: Intact Sensation Left Lower Extremity: Intact Transfers Functional [place] Measure 0=Not Assessed/NA 4=Minimal Assistance 1=Total Assistance 5=Supervision or Setup 2=Maximal Assistance 6=Modified [place] 3=Moderate Assistance 7=Complete [place] Transfers (B, C, W/C) (FIM): 4 Scootin Rollin Supine to/from Sit: 4 Sit to/from Stand: 4 Gait Mode of Locomotion: Walk Anticipated Mode of Locomotion: Walk Gait (FIM): 1 Distance (FIM): 1=up to 49 ft Distance: 30' Gait Level of Assist: 4 Gait Persons Needed: 1 Gait Assistive Device: FWW Comments/Gait Description slow, steady, increase c/o dizziness in stand Balance Sitting Static: Normal Sitting Dynamic: Normal Standing Static: Fair Standing Dynamic: Fair Assessment/Needs 81 y.o. female, will benefit from skilled PT to address pulmonary functional with functional mobility and strength to improve current LOF and to safely return to home at maximum LOF. From a PT standpoint, Patient would benefit from ARU when medically stable to improve LOF. Rehab Potential: Fair PT Questioned Documents Examiner Goals Questioned Documents Examiner Goals PT Chcf Goals Time Frame: May 08, 2017 Transfers (B,C,W/C) (FIM): 6 Gait (FIM): 6 Gait distance (FIM): 3=150 ft Distance: 175' Gait Level of Assist: 6 Gait Assistive Device: FWW, Cane Single Point PT Plan Problem List Problem List: Activity Tolerance, Functional Strength, Balance, Gait, Transfer , Bed Mobility Treatment/Plan Treatment Plan: Continue Plan of Care Treatment Plan: Bed Mobility, Education, Functional Activity Priya, Functional Strength, Gait, Safety, Therapeutic Exercise, Transfers Treatment Duration: May 08, 2017 Frequency: 6 times per week (increase to 11/wk when stable) Estimated Hrs Per Day: .5 hour per day Patient and/or Family Agrees t: Yes Safety Risks/Education Patient Education: Disease Process, Safety Issues Teaching Recipient: Patient, Family Teaching Methods: Discussion Response to Teaching: Verbalize Understanding Discharge Recommendations Therapy D/C Recommendations: Acute Rehab Time/GCodes Time In: 1001 Time Out: 1018 Total Billed Treatment Time: 17 [facility] Apr 20, 2017 11:49
[2017-04-20] MEDS ORDERED: INFLUENZA TRIvalent 2017-2018 0.5 ML/45 MCG SYR IM ONE (13:30)
--- NOTE | 2017-04-20 15:24 | Occupational Therapy Eval ---
OT Evaluation-General/PLF Medical Diagnosis Admission Date Apr 17, 2017 at 18:38 Medical Diagnosis: Respiratory Distress Onset Date: Apr 17, 2017 Therapy Diagnosis Therapy Diagnosis: decr act ad, decr self care, weakness, decr funct mobility Height/Weight Height (Feet): 5 Height (Inches): 3.00 Weight (Pounds): 147 Weight (Ounces): 6.0 Precautions Precautions/Isolations: Fall Prevention, Standard Precautions Safety Interventions: None Referral Physician: Ted Referral Reason: Evaluation/Treatment Medical History Pertinent Medical History: Arthritis, GERD Additional Medical History Hx pneumonia. Aortic stenosis. restless legs. GERD, IBS. Chronic back pain. Cochlear implant R. hard of hearing, hearing aide Current History Developed respiratory distress at [facility], had "massive pulmonary embolism". In ICU on vent, transferred to floor today Reviewed History: Yes Social History Home: Single Level Current Living Status: Alone ADL-Prior Level of Function ADL PLOF Comments Pt reported that she was able to manage all of her basic self care needs prior to admission. She could do her laundry, cook simple meals, clean. She still drives. Pt was on ARU in January after R hemiarthroplasty. Occupation: retired Drive Self: Yes OT Current Status Subjective Pt seen in room, up in recliner, agreeable to OT. Pt reported pain 0/10 Appearance Alert, cooperative Mental Status/Objective Attachments: Barron Catheter, IV, Oxygen (2L/min) Current Glasses/Contacts: Yes Hearing Aids: Yes Upper Extremity ROM Grossly WFL bilat Upper Extremity Sensation No problems, per pt report Upper Extremity Strength Grossly 4/5 bilat ADL-Treatment ADL-Current Pt reported that she is still NPO so has not been able to feed herself. She has not been up to the toilet but has BSC in room. Functional [place] Measure 0=Not Assessed/NA 4=Minimal Assistance 1=Total Assistance 5=Supervision or Setup 2=Maximal Assistance 6=Modified [place] 3=Moderate Assistance 7=Complete IndependenceIRFPAI Quality Coding Scale 6 Independent with activity with or without an assistive device 5 Patient requires set up or clean up by helper. Patient completes activity by themselves 4 Supervision or touching assist (CGA). [place] provide cues , steadying assist 3 The helper provides less than half the effort to complete the activity 2 The helper provides more than half the effort to complete the activity 1 Dependent. The helper does all the effort to complete an activity 7 Patient refused to complete or attempt activity 9 The patient did not perform the activity before the current illness or injury 88 Not attempted due to Medical conditions or safety concerns Education OT Patient Education: Purpose of tx/functional activities, Rehab process OT Longterm Goals Longterm Goals Time Frame: May 08, 2017 Eating (FIM): 6 Grooming(FIM): 6 Bathing(FIM): 5 Upper Body Dressing(FIM): 5 Lower Body Dressing(FIM): 5 Toileting(FIM): 6 Toilet/Commode Transfer(FIM): 6 Shower Transfer(FIM): 5 Additional Goals: 1-Demonstrate ADL Tasks, 2-Verbalize Understanding, 3- ImproveStrength/Priya 1=Demonstrate adherence to instructed precautions during ADL tasks. 2=Patient will verbalize/demonstrate understanding of assistive devices/ modifications for ADL. 3=Patient will improve strength/tolerance for activity to enable patient to perform ADL's. OT Education/Plan Problem List/Assessment Assessment: Decreased Activ Tolerance, Decreased UE Strength, Dependent Transfers, Impaired Funct Balance, Impaired Self-Care Skills Pt would benefit from skilled OT to increase her independence in basic self care and to decrease caregiver burden Discharge Recommendations Plan/Recommendations: Continue POC Target Placement Home. May benefit from short stay on ARU Treatment Plan/Plan of Care Treatment,Training & Education: Yes Patient would benefit from OT for education, treatment and training to promote independence in ADL's, mobility, safety and/or upper extremity function for ADL' s. Plan of Care: ADL Retraining, Functional Mobility, UE Funct Exercise/Act Treatment Duration: May 08, 2017 Frequency: 5 times per week Estimated Hrs Per Day: .5 hour per day Agreement: Yes Rehab Potential: Fair Time/GCodes Start Time: 14:14 Stop Time: 14:26 Total Time Billed (hr/min): 12 Billed Treatment Time visit, 12 minutes evaluation moderate intensity MARIZA VALDES OT Apr 20, 2017 15:24
[2017-04-21] MEDS: RT-ALBUTEROL/IPRATROPIUM 3 ML (DUONEB) VIAL INH SCH ×3 (02:11→22:19)
[2017-04-21 04:00] VITALS: BP 115/62
[2017-04-21 04:14] LABS: BASOPHILS % (AUTO) 0 % (0-10); EOSINOPHILS % (AUTO) 0 % (0-10); HEMATOCRIT 32 % (35-52); HEMOGLOBIN 10.2 G/DL (11.5-16.0); LYMPHOCYTES # (AUTO) 0.6 X 10^3 (1.0-4.0); LYMPHOCYTES % (AUTO) 11 % (12-44); MEAN CORPUSCULAR HEMOGLOBIN 32 PG (25-34); MEAN CORPUSCULAR HGB CONC 32 G/DL (32-36); MEAN CORPUSCULAR VOLUME 100 FL (80-99); MEAN PLATELET VOLUME 10.8 FL (7.4-10.4); MONOCYTES # (AUTO) 0.2 X 10^3 (0.0-1.0); MONOCYTES % (AUTO) 4 % (0-12); NEUTROPHILS # (AUTO) 4.2 X 10^3 (1.8-7.8); NEUTROPHILS % (AUTO) 85 % (42-75); PLATELET COUNT 133 10^3/uL (130-400); RED BLOOD COUNT 3.23 10^6/uL (4.35-5.85); WHITE BLOOD COUNT 4.9 10^3/uL (4.3-11.0)
[2017-04-21 04:32] LABS: BUN/CREATININE RATIO 30; CALCIUM 9.2 MG/DL (8.5-10.1); CARBON DIOXIDE 23 MMOL/L (21-32); CHLORIDE 112 MMOL/L (98-107); CREATININE SERUM 0.67 MG/DL (0.60-1.30); GFR ESTIMATED > 60; GLUCOSE 168 MG/DL (70-105); PHOSPHORUS 3.5 MG/DL (2.3-4.7); POTASSIUM 3.9 MMOL/L (3.6-5.0); SODIUM 146 MMOL/L (135-145)
[2017-04-21] MEDS: NYSTATIN ORAL SUSP 5 ML UDC PO SCH ×3 (06:08→18:00)
[2017-04-21] MEDS: RIVAROXABAN 15 MG TABLET (XARELTO) PO SCH ×2 (06:08→18:00)
[2017-04-21] MEDS: methylPREDNISolone 40 MG/ML (Solu-MEDROL) VIAL IV SCH (06:08)
--- NOTE | 2017-04-21 07:08 | Pulmonary Progress Note ---
Subjective Time Seen by Provider: 07:08 Subjective/Events-last exam PT feels improved currently. Exam Exam Vital Signs Date Time Temp Pulse Resp B/P (MAP) Pulse Ox O2 Delivery O2 Flow Rate FiO2 04/21/17 06:55 96 OxyMask 3.00 04/21/17 04:00 98.5 85 20 115/62 (79) 97 Nasal Cannula 2.00 04/21/17 02:11 92 OxyMask 3.00 04/20/17 23:26 98.6 104 20 118/74 (89) 96 Nasal Cannula 2.00 04/20/17 22:08 93 Nasal Cannula 2.00 04/20/17 21:00 Nasal Cannula 2.00 04/20/17 19:55 98.5 93 20 125/64 (84) 96 Nasal Cannula 2.00 04/20/17 18:36 96 Nasal Cannula 2.00 04/20/17 16:29 98.7 84 18 127/59 (81) 98 Nasal Cannula 2.00 04/20/17 14:36 95 Nasal Cannula 2.00 04/20/17 12:30 98.2 87 20 119/67 (84) 98 Nasal Cannula 04/20/17 10:21 98 Nasal Cannula 2.00 04/20/17 10:17 98 Nasal Cannula 2.50 04/20/17 08:00 95 Nasal Cannula 2.00 04/20/17 08:00 105 18 115/97 (103) 98 Nasal Cannula 3.00 04/20/17 08:00 96.5 I & O 04/21/17 07:00 Intake Total 100 ml Output Total 1075 ml Balance -975 ml General Appearance: No Apparent Distress, WD/WN HEENT: PERRL/EOMI, Pharynx Normal Neck: No JVD Respiratory: Lungs Clear, No Respiratory Distress Cardiovascular: Regular Rate, Rhythm, No Murmur Capillary Refill: Less Than 3 Seconds Gastrointestinal: soft, no organomegaly Extremity: No Calf Tenderness, No Pedal Edema Neurologic/Psychiatric: Alert, Oriented x3 Skin: Normal Color, Warm/Dry Lymphatic: No Adenopathy Results Lab Laboratory Tests 04/20/17 02:20 04/21/17 04:00 Assessment/Plan Assessment/Plan Probable Acute PE with syncope - Xarelto -dopplers LE-- were negative Nocturnal hypoxia, EDS (pt was placed on oxygen mask last night secondary to hypoxia) She was on RA during the day yesterday -Probable ABIGAIL -Will do out patient testing Acute bronchitis- improved -SVNS, -solumedrol - D/C 232 Critical Care: Critically Ill Patient HAYLEY MURRAY DO Apr 21, 2017 07:08
--- NOTE | 2017-04-21 08:12 | Diagnostic Imaging Report ---
INDICATION: Respiratory distress. Comparison made with prior examination 04/20/2017. FINDINGS: There is cardiomegaly. There is mild venous congestion. There is no pleural effusion or pneumothorax. Mediastinum is unremarkable. IMPRESSION: Cardiomegaly and mild central pulmonary venous congestion. Dictated by: Dictated on workstation # [id number]
[2017-04-21] MEDS: PANTOPRAZOLE 40 MG/10 ML (PROTONIX) VIAL IV SCH ×2 (08:20→21:24)
[2017-04-21 08:32] VITALS: BP 134/81
--- NOTE | 2017-04-21 08:51 | Speech Therapy Daily Note ---
Speech Daily Progress Note Subjective Date Seen by Provider: Apr 21, 2017 Time Seen by Provider: 08:10 The patient was seated upright in chair upon entrance. The patient greeted the clinician and was agreeable to participation in the dysphagia re-evaluation. Per patient, "I am feeling much better and am very ready to eat!" Objective The patient was evaluated with thin liquids (teaspoon, cup sip, straw drink), puree, and solids. No signs/symptoms of aspiration were demonstrated with multiple consistencies. The patient's vocal quality remained clear. Recommendations: - Regular diet with thin liquids, as tolerated. - Small bites and sips. - Upright and alert for all PO intake. Assessment Assessment Current Status: Excellent Progress Treatment Plan Discontinue ST, Goals Met Speech Short Term Goals Short Term Goals Short Term Goals The patient will tolerate trials of the least restrictive diet without signs/ symptoms of aspiration or laryngeal penetration. Time Frame-STG: Three Days Speech Parts Department Manager Goals Parts Department Manager Goals 1. The patient will tolerate a diet of the least restrictive consistency without signs/symptoms of aspiration or laryngeal penetration. Speech-Plan Treatment Plan Speech Therapy Treatment Plan: Discontinue ST, Goals Met No additional skilled speech pathology services warranted. Treatment Duration: Apr 27, 2017 Frequency: 3 times per week Estimated Hrs Per Day: .25 hour per day Rehab Potential: Fair Safety Risks/Education Teaching Recipient: Patient Teaching Methods: Discussion Response to Teaching: Verbalize Understanding Education Topics Provided: Results, Recommendations, Swallowing Strategies Time Speech Therapy Time In: 08:10 Speech Therapy Time Out: 08:30 Total Billed Time: 20 Billed Treatment Time 1, JONATHAN NINO Apr 21, 2017 08:51
[2017-04-21 10:29] VITALS: BP 134/81
--- NOTE | 2017-04-21 10:31 | Progress Note-Cardiology ---
Cardiology SOAP Progress Note Objective: I&O/Vital Signs Weight (Pounds): 135 Weight (Ounces): 2.0 Weight (Calculated Kilograms): 61.596221 Constitutional: AAO x 3, well-developed, well-nourished Respiratory: other (fair bilat air entry; scattered rhonchi and wheezes) Cardiovascular: regular rate-rhythm, No JVD, S1 and S2, systolic murmur (3/6 MSM at card base) Gastrointestional: soft, No guarding, No rebound, audible bowel sounds Extremities: No clubbing, No cyanosis, No significant edema Neurologic/Psychiatric: oriented x 3, grossly intact, power is 5/5 both on sides Skin: No rash on exposed areas, No ulcerations on exposed areas Results/Procedures: Labs Microbiology 04/17/17 MRSA Screen - Final, Complete Procedures NAME: MOHSEN ALANIS [facility] REC#: [id number] PT STATUS: ADM IN : 1935 PHYSICIAN: HAYLEY MURRAY DO ADMIT DATE: 04/17/17 Signed Date of Exam: 04/21/17 CHEST 1 VIEW, AP/PA ONLY INDICATION: Respiratory distress. Comparison made with prior examination 04/20/2017. FINDINGS: There is cardiomegaly. There is mild venous congestion. There is no pleural effusion or pneumothorax. Mediastinum is unremarkable. IMPRESSION: Cardiomegaly and mild central pulmonary venous congestion. Dictated by: Dictated on workstation # [id number] Dict: 04/21/17 0737 Trans: 04/21/17 0854 Interpreted by: QUINN CARPENTER MD Electronically signed by: QUINN CARPENTER MD 04/21/17 0854 A/P: Assessment: Acute resp failure due to massive pulm embolism, treated with thrombolysis and mech vent. Extubated on 04/20/17. Currently on rivaroxaban Hypokalemia Bipolar R hemiarthroplasty on 02/04/17 for R hip fracture due a nonsyncopal fall Severe aortic stenosis. Echo of shows aortic valve area 0.8 sq cm, LVEF 55-60%, PASP 35 mmHg and grade I diastolic dysfunction of the LV. Repeat echo of 04/17/17 shows LVEF 45-50%, AoV area approx 1 sq cm, grade I rodrigues dysfunction No significant CAD on card cath of 2012 Plan: * Replenish lytes * Monitor labs CINDY BLACKWOOD Apr 21, 2017 10:31
--- NOTE | 2017-04-21 11:13 | Physical Therapy Daily Note ---
PT Daily Note-Current Subjective Patient reports she feels much better since she was able to eat. Pain Numeric Pain Scale: 0-No Pain Location: No Pain Reported Mental Status Patient Orientation: Normal For Age Attachments: Oxygen (2L NC) Transfers Functional [place] Measure 0=Not Assessed/NA 4=Minimal Assistance 1=Total Assistance 5=Supervision or Setup 2=Maximal Assistance 6=Modified [place] 3=Moderate Assistance 7=Complete IndependenceIRFPAI Quality Coding Scale 6 Independent with activity with or without an assistive device 5 Patient requires set up or clean up by helper. Patient completes activity by themselves 4 Supervision or touching assist (CGA). [place] provide cues , steadying assist 3 The helper provides less than half the effort to complete the activity 2 The helper provides more than half the effort to complete the activity 1 Dependent. The helper does all the effort to complete an activity 7 Patient refused to complete or attempt activity 9 The patient did not perform the activity before the current illness or injury 88 Not attempted due to Medical conditions or safety concerns Transfers (B, C, W/C) (FIM): 5 Scootin Rollin Supine to/from Sit: 5 Sit to/from Stand: 5 Bed to/from Chair: 5 Weight Bearing Right Lower Extremity: Right Weight Bearing/Tolerated Left Lower Extremity: Left Weight Bearing/Tolerated Gait Training Gait (FIM): 5 Distance (FIM): 3=150 ft Distance: 525' Gait Level of Assist: 5 Gait Assistive Device: FWW assist for O2 tank only/safe and functional gait sequence Exercises Seated Therapy Exercises: Ankle pumps, Long arc quads, Hip flexion Seated Reps: 25 Standing: Heel/toe raises, 3 way Ex=Flex, Abd, Ext Standing Reps: 25 Assessment Current Status: Excellent Progress Patient is SBA to modified independent with all gross motor skills. Patient is progressing with therapy. PT Policy Officer Goals Policy Officer Goals PT Chcf Goals Time Frame: May 08, 2017 Transfers (B,C,W/C) (FIM): 6 Gait (FIM): 6 Gait distance (FIM): 3=150 ft Distance: 175' Gait Level of Assist: 6 Gait Assistive Device: FWW, Cane Single Point PT Plan Treatment/Plan Treatment Plan: Continue Plan of Care Treatment Plan: Bed Mobility, Education, Functional Activity Priya, Functional Strength, Gait, Safety, Therapeutic Exercise, Transfers Treatment Duration: May 08, 2017 Frequency: 6 times per week (increase to 11/wk when stable) Estimated Hrs Per Day: .5 hour per day Patient and/or Family Agrees t: Yes Discharge Recommendations Therapy D/C Recommendations: Physical Therapy Home Care Time/GCodes Time In: 1040 Time Out: 1103 Total Billed Treatment Time: 23 Total Billed Treatment 1 visit EX 13 min GT 10 min EVARISTO WHITE PT Apr 21, 2017 11:13
--- NOTE | 2017-04-21 11:43 | Progress Note-Hospitalist ---
Subjective HPI/CC On Admission Date Seen by Provider: Apr 21, 2017 Time Seen by Provider: 11:10 CC: Wheezing and respiratory failure while at [facility] ice cream [employer] HPI: This is a 81-year-old white female clinic patient of mine for the past 8 years with a past medical history of restless leg syndrome and irritable bowel syndrome with GERD with multiple colonoscopies and EGDs in the past by Dr. Choudhury who recently had a right hip fracture repair on 02/05/17 after a fall. She actually did very well was discharged to rehabilitation had no significant medical issues during rehabilitation stay was able to ambulate well and had no delay in her recovery and I had seen her in the clinic twice since her discharge from the hospital and she was doing well and ambulating without a cane or a walker. She did not have any history of calf pain or any other issues while she was hospitalized or after discharge. Apparently she went to the ice cream store yesterday began an abrupt onset of wheezing while in the store and suffered respiratory failure and ambulance was called and she was found to be in respiratory failure in the ER was intubated and managed for her critical illness. She was given TPA for presumed acute TPA causing syncope with good results and this morning she is oxygenating well on ventilator and I greatly appreciate cardiology and pulmonology and Gen. surgery Central line placement and managing this critically ill patient. Subjective/Events-last exam Pt reports doing well. [place] weak yesterday and thinks due to hungry. Weakness improving. Up doing PT during my exam. Denies any pain. SOB improving. Objective Exam Vital Signs Vital Signs Date Time Temp Pulse Resp B/P (MAP) Pulse Ox O2 Delivery O2 Flow Rate FiO2 04/17/17 17:14 35 NIV Bilevel 04/17/17 17:14 98.2 124 24 153/90 (111) 04/17/17 17:58 100 04/17/17 19:00 100.00 Capillary Refill : Less Than 3 Seconds General Appearance: No Apparent Distress, WD/WN Respiratory: Lungs Clear, No Respiratory Distress, Other (on oxygen) Cardiovascular: Regular Rate, Rhythm, No Murmur Gastrointestinal: Normal Bowel Sounds, Non Tender, Soft Extremity: Normal Range of Motion, No Pedal Edema Neurologic/Psychiatric: Alert, Oriented x3, Normal Mood/Affect Results/Procedures Lab Laboratory Tests 04/21/17 04:00 Assessment/Plan Assessment and Plan Assess & Plan/Chief Complaint Saddle PE Diagnosis/Problems Diagnosis/Problems (1) Pulmonary embolus Status: Acute Assessment & Plan: S/p TPA in ER on arrival Extubated 3/4 evening Improving, on 2lpm via [place] Pulm consulted, appreciate recs Had hip fracture and repair in January- was on Xarelto during that time Continue Xarelto Plan to transfer to IRU tomorrow for further rehab from critical illness Qualifiers: Qualified Codes: I26.92 - Saddle embolus of pulmonary artery without acute cor pulmonale (2) Anemia Status: Chronic Assessment & Plan: Stable, will trend Macrocytic- had elevated folate and normal B12 in 2013 Qualifiers: Qualified Codes: D64.9 - Anemia, unspecified (3) Thrombocytopenia Status: Resolved Assessment & Plan: likely consumptive from PE Trend (4) Hypokalemia Status: Resolved Assessment & Plan: trend (5) Hypernatremia Assessment & Plan: Improving with DC of fluids (6) Aortic stenosis Assessment & Plan: Moderate stenosis on 2012 echo Cardiology consulted, appreciate recs Echo ordered-pending Qualifiers: Qualified Codes: I35.0 - Nonrheumatic aortic (valve) stenosis (7) Status post total hip replacement, right Assessment & Plan: Ambulates with cane Will order PT/OT (8) Prophylactic measure Assessment & Plan: Saline Lock Regular Diet MARGARET Ray MD Apr 21, 2017 11:42 am
--- NOTE | 2017-04-21 16:11 | Occupational Ther Daily Note ---
OT Current Status-Daily Note Subjective Pt seen in room, up in recliner, agreeable to OT. Said she feels much better now that she can eat and drink. Pleased with how far she walked this morning. Mental Status/Objective Functional [place] Measure 0=Not Assessed/NA 4=Minimal Assistance 1=Total Assistance 5=Supervision or Setup 2=Maximal Assistance 6=Modified [place] 3=Moderate Assistance 7=Complete [place] Other Treatment Pt reported that she has been going to the bathroom with only standby assistance. pt education on several different bilat UE exercises that she could do with yellow (gentle resistance) theraband. Pt also provided with written instructions. She was able to do 10 reps of 4 different exercises with minimal cues after education. These are to strengthen her UEs to help with getting up and down from chairs and toilet and help with ADLs. Pt left up in recliner, all needs met, O2 in place nc. Education OT Patient Education: Home exercise program, Purpose of tx/functional activities Teaching Recipient: Patient Teaching Methods: Demonstration, Discussion Response to Teaching: Verbalize Understanding, Return Demonstration OT Short Term Goals Short Term Goals 1=Demonstrate adherence to instructed precautions during ADL tasks. 2=Patient will verbalize/demonstrate understanding of assistive devices/ modifications for ADL. 3=Patient will improve strength/tolerance for activity to enable patient to perform ADL's. OT [place] Goals Retirement Goals Time Frame: May 08, 2017 Eating (FIM): 6 Grooming(FIM): 6 Bathing(FIM): 5 Upper Body Dressing(FIM): 5 Lower Body Dressing(FIM): 5 Toileting(FIM): 6 Toilet/Commode Transfer(FIM): 6 Shower Transfer(FIM): 5 Additional Goals: 1-Demonstrate ADL Tasks, 2-Verbalize Understanding, 3- ImproveStrength/Priya 1=Demonstrate adherence to instructed precautions during ADL tasks. 2=Patient will verbalize/demonstrate understanding of assistive devices/ modifications for ADL. 3=Patient will improve strength/tolerance for activity to enable patient to perform ADL's. OT Education/Plan Problem List/Assessment Pt would benefit from skilled OT to increase her independence in basic self care and to decrease caregiver burden Discharge Recommendations Plan/Recommendations: Continue POC Treatment Plan/Plan of Care Patient would benefit from OT for education, treatment and training to promote independence in ADL's, mobility, safety and/or upper extremity function for ADL' s. Plan of Care: ADL Retraining, Functional Mobility, UE Funct Exercise/Act Treatment Duration: May 08, 2017 Frequency: 5 times per week Estimated Hrs Per Day: .5 hour per day Agreement: Yes Rehab Potential: Fair Time/GCodes Start Time: 15:40 Stop Time: 16:00 Total Time Billed (hr/min): 20 Billed Treatment Time visit, 20 minutes exercise MARIZA VALDES OT Apr 21, 2017 16:11
[2017-04-21 16:59] VITALS: BP 124/59
--- NOTE | 2017-04-21 17:32 | Progress Note-Cardiology ---
Cardiology SOAP Progress Note Subjective: Feels much better today. No cp or palp or syncope. Shortness of breath getting better Objective: I&O/Vital Signs Vital Sign - Last 12Hours 04/21/17 04/21/17 04/21/17 04/21/17 06:55 08:32 09:00 10:29 Temp 98.4 Pulse 90 90 Resp 18 B/P (MAP) 134/81 (98) Pulse Ox 96 92 92 92 O2 Delivery OxyMask Nasal Cannula Nasal Cannula O2 Flow Rate 3.00 2.00 2.00 FiO2 28 Intake and Output 04/21/17 00:00 Intake Total 50 ml Output Total 725 ml Balance -675 ml Weight (Pounds): 135 Weight (Ounces): 2.0 Weight (Calculated Kilograms): 61.319306 Constitutional: AAO x 3, well-developed, well-nourished Respiratory: other (fair bilat air entry; scattered rhonchi and wheezes) Cardiovascular: regular rate-rhythm, No JVD, S1 and S2, systolic murmur (3/6 MSM at card base) Gastrointestional: soft, No guarding, No rebound, audible bowel sounds Extremities: No clubbing, No cyanosis, No significant edema Neurologic/Psychiatric: oriented x 3, grossly intact, power is 5/5 both on sides Skin: No rash on exposed areas, No ulcerations on exposed areas Results/Procedures: Labs Laboratory Tests 04/20/17 18:23: Glucometer 166H 04/20/17 23:38: Glucometer 162H 04/21/17 04:00: White Blood Count 4.9, Red Blood Count 3.23L, Hemoglobin 10.2L, Hematocrit 32L, Mean Corpuscular Volume 100H, Mean Corpuscular Hemoglobin 32, Mean Corpuscular Hemoglobin Concent 32, Red Cell Distribution Width 14.0, Platelet Count 133, Mean Platelet Volume 10.8H, Neutrophils (%) (Auto) 85H, Lymphocytes (%) (Auto) 11L, Monocytes (%) (Auto) 4, Eosinophils (%) (Auto) 0, Basophils (%) (Auto) 0, Neutrophils # (Auto) 4.2, Lymphocytes # (Auto) 0.6L, Monocytes # (Auto) 0.2, Eosinophils # (Auto) 0.0, Basophils # (Auto) 0.0, Sodium Level 146H, Potassium Level 3.9, Chloride Level 112H, Carbon Dioxide Level 23, Anion Gap 11, Blood Urea Nitrogen 20H, Creatinine 0.67, Estimat Glomerular Filtration Rate > 60, BUN /Creatinine Ratio 30, Glucose Level 168H, Calcium Level 9.2, Phosphorus Level 3.5, Magnesium Level 2.0 04/21/17 11:44: Glucometer 289H Microbiology 04/17/17 MRSA Screen - Final, Complete Laboratory Tests 04/20/17 02:20 04/21/17 04:00 A/P: Assessment: Acute resp failure due to massive pulm embolism, treated with thrombolysis and mech vent. Extubated on 04/20/17. Currently on rivaroxaban Hypokalemia Bipolar R hemiarthroplasty on 02/04/17 for R hip fracture due a nonsyncopal fall Severe aortic stenosis. Echo of shows aortic valve area 0.8 sq cm, LVEF 55-60%, PASP 35 mmHg and grade I diastolic dysfunction of the LV. Repeat echo of 04/17/17 shows LVEF 45-50%, AoV area approx 1 sq cm, grade I rodrigues dysfunction No significant CAD on card cath of 2012 Plan: * Continue current regimen * I spoke with her and answered CV-related questions LAYLA ELLISON MD FACP [facility] [place] Apr 21, 2017 17:32
[2017-04-21 20:07] VITALS: BP 119/63
[2017-04-22 00:10] VITALS: BP 119/58
[2017-04-22] MEDS: NYSTATIN ORAL SUSP 5 ML UDC PO SCH ×3 (00:29→12:33)
[2017-04-22 04:00] VITALS: BP 115/62
[2017-04-22 04:52] LABS: BASOPHILS % (AUTO) 0 % (0-10); EOSINOPHILS % (AUTO) 0 % (0-10); HEMATOCRIT 32 % (35-52); HEMOGLOBIN 10.2 G/DL (11.5-16.0); LYMPHOCYTES # (AUTO) 1.4 X 10^3 (1.0-4.0); LYMPHOCYTES % (AUTO) 16 % (12-44); MEAN CORPUSCULAR HEMOGLOBIN 32 PG (25-34); MEAN CORPUSCULAR HGB CONC 32 G/DL (32-36); MEAN CORPUSCULAR VOLUME 99 FL (80-99); MEAN PLATELET VOLUME 11.1 FL (7.4-10.4); MONOCYTES # (AUTO) 0.6 X 10^3 (0.0-1.0); MONOCYTES % (AUTO) 7 % (0-12); NEUTROPHILS # (AUTO) 6.8 X 10^3 (1.8-7.8); NEUTROPHILS % (AUTO) 77 % (42-75); PLATELET COUNT 162 10^3/uL (130-400); RED BLOOD COUNT 3.21 10^6/uL (4.35-5.85); RED CELL DISTRIBUTION WIDTH 13.8 % (10.0-14.5); WHITE BLOOD COUNT 8.8 10^3/uL (4.3-11.0)
[2017-04-22 05:06] LABS: BUN/CREATININE RATIO 45; CARBON DIOXIDE 28 MMOL/L (21-32); CHLORIDE 106 MMOL/L (98-107); CREATININE SERUM 0.67 MG/DL (0.60-1.30); GFR ESTIMATED > 60; GLUCOSE 117 MG/DL (70-105); PHOSPHORUS 2.8 MG/DL (2.3-4.7); POTASSIUM 3.6 MMOL/L (3.6-5.0); SODIUM 141 MMOL/L (135-145)
--- NOTE | 2017-04-22 06:02 | Pulmonary Progress Note ---
Subjective Time Seen by Provider: 06:21 Subjective/Events-last exam Pt is doing better. No complications noted. Exam Exam Vital Signs Date Time Temp Pulse Resp B/P (MAP) Pulse Ox O2 Delivery O2 Flow Rate FiO2 04/22/17 00:10 98.0 77 17 119/58 (78) 97 Nasal Cannula 2.00 04/21/17 21:00 Nasal Cannula 2.00 04/21/17 20:07 97.1 73 18 119/63 (81) 96 Nasal Cannula 2.00 04/21/17 16:59 97.7 80 18 124/59 (80) 95 Nasal Cannula 2.00 04/21/17 10:29 90 92 28 04/21/17 09:00 92 Nasal Cannula 2.00 04/21/17 08:32 98.4 90 18 134/81 (98) 92 Nasal Cannula 2.00 04/21/17 06:55 96 OxyMask 3.00 I & O 04/22/17 07:00 Intake Total 1510 ml Output Total 200 ml Balance 1310 ml General Appearance: No Apparent Distress, WD/WN HEENT: PERRL/EOMI, Pharynx Normal Neck: No JVD Respiratory: Lungs Clear, No Respiratory Distress, Other (on oxygen) Cardiovascular: Regular Rate, Rhythm, No Murmur Capillary Refill: Less Than 3 Seconds Gastrointestinal: soft, no organomegaly Extremity: Normal Range of Motion, No Pedal Edema Neurologic/Psychiatric: Alert, Oriented x3, Normal Mood/Affect Skin: Normal Color, Warm/Dry Lymphatic: No Adenopathy Results Lab Laboratory Tests 04/21/17 04:00 04/22/17 04:30 Assessment/Plan Assessment/Plan Probable Acute PE with syncope - Xarelto -dopplers LE-- were negative Nocturnal hypoxia, EDS (pt was placed on oxygen mask last night secondary to hypoxia) She was on RA during the day yesterday -Probable ABIGAIL -Will do out patient testing Acute bronchitis- improved -SVNS, -solumedrol - D/C Probably transfer to rehab today. 232 Critical Care: Critically Ill Patient TERRIHAYLEY Brenda DO Apr 22, 2017 06:02
[2017-04-22] MEDS: RIVAROXABAN 15 MG TABLET (XARELTO) PO SCH (06:04)
[2017-04-22] MEDS: RT-ALBUTEROL/IPRATROPIUM 3 ML (DUONEB) VIAL INH SCH (08:16)
[2017-04-22 09:01] VITALS: BP 122/61
[2017-04-22] MEDS: POTASSIUM CL 10MEQ/50ML IVPB 50 ML IV SCH ×2 (09:15→09:18)
[2017-04-22] MEDS: NS IV 1000 ML 1,000 ML IV SCH ×2 (09:16→09:19)
[2017-04-22] MEDS ORDERED: RIVA15TA PO ×2 (09:22→09:37)
[2017-04-22] MEDS ORDERED: RIVA20TA PO (09:22)
--- NOTE | 2017-04-22 09:24 | Discharge Inst-Simple/Standard ---
Discharge Inst-Standard Discharge Medications New, Converted or Re-Newed RX: Call to Patients Pharmacy Patient Instructions/Follow Up Plan of Care/Instructions/FU: Please continue to take your medications as written. You will need to take Xarelto 15mg twice a day for 19 more days. After that please start the 20mg daily dose. I have sent both of these prescriptions to your pharmacy right now but you only need to take one at a time as described above. Please follow up with your PCP in [address] Bourne as scheduled. Activity as Tolerated: Yes Discharge Diet: No Restrictions Return to The Hospital For: SOB, Chest pain, or if you feel you are getting worse. MARGARET LAMB MD Apr 22, 2017 09:24
--- NOTE | 2017-04-22 09:26 | D/C HH Face to Face Order ---
D/C Face to Face Orders Instructions for Patient Patient Instructions/FollowUp: Please take your medications as written. Physician to follow Patient: Dr Mcintosh Discharge Diet for Home: No Restrictions Patient Data-Allergies,Ht & Wt Patient Allergies: Coded Allergies: No Known Drug Allergies (Unverified , 02/04/17) Height (Feet): 5 Height (Inches): 3.00 Weight (Pounds): 138 Weight (Ounces): 5.0 Home Health Need/Face to Face Date of Face to Face: Apr 22, 2017 Clinical Findings: Shortness of breath, Unsteady gait I have seen Pt [id number]: Yes Discharged To: Home Diagnosis/Conditions: Saddle Pulmonary Embolus, recent hip fracture and repair Problems/Diagnosis/Condition: Patient is Homebound due to: [place] fall risk due to instabilty, Shortness of breath/distress Homebound Status Due to the above stated illness, injury or surgical procedure (medical condition or diagnosis) and associated clinical findings, the patient is homebound because of his/her inability to leave home except with aid of a supportive device and/or person AND leaving the home requires a considerable and taxing effort or is medically contraindicated. Pt req the following assistanc: Walker Home Health Nursing Orders Home Health Services Order: Nursing Services, Physical Therapy-Evaluate & Treat Home Health Infusion Therapy Line Start Date: Apr 17, 2017 Line Start Time: 1714 Line Type: Central Line Site Location: Femoral Therapy Orders Therapy Orders: Physical Therapy, PT to assess for OT Therapy Specific Orders: Eval assistive deivces, Teach enviro modifications/ safety, Gait training, Increase strength/endurance Certify Stmt I certify that this patient is under my care and that I, a nurse practitioner or a physician; a assistant professor of chemistry working with me, had a face to face encounter that - meets the physician face to face encounter requirements with this patient as dated. MARGARET LAMB MD Apr 22, 2017 09:26
--- NOTE | 2017-04-22 09:35 | Discharge Summary-Hospitalist ---
Diagnosis/Chief Complaint Date of Admission Apr 17, 2017 at 18:38 Date of Discharge Discharge Date: Apr 22, 2017 Admission Diagnosis Assessment: Acute pulmonary embolus suspected in the ER with respiratory failure requiring intubation and given TPA with good results then CT scan today revealed bilateral saddle pulmonary emboli with negative ultrasound for DVT Ventilator-dependent respiratory failure day #2 History of hip fracture repair with rapid recovery 02/05/17 had been ambulating without assistance for several weeks Irritable bowel syndrome Restless leg syndrome GERD Discharge Diagnosis Saddle PE (1) Pulmonary embolus Status: Acute Assessment & Plan: S/p TPA in ER on arrival Extubated 04/19 evening, on Room air at rest Qualified for home oxygen with ambulation- needs 4lpm Pulm consulted, appreciate recs Had hip fracture and repair in January- was on Xarelto during that time Continue Xarelto starter dose (2) Anemia Status: Chronic Assessment & Plan: Stable, will trend Macrocytic- had elevated folate and normal B12 in 2013 (3) Thrombocytopenia Status: Resolved Assessment & Plan: likely consumptive from PE, improving Trend (4) Hypokalemia Status: Resolved Assessment & Plan: trend (5) Hypernatremia Assessment & Plan: Resolved (6) Aortic stenosis Assessment & Plan: Moderate stenosis on 2012 echo Cardiology consulted, appreciate recs (7) Status post total hip replacement, right Assessment & Plan: PT/OT Will continue with Home Health (8) Prophylactic measure Assessment & Plan: Saline Lock Regular Diet Xarelto Discharge Summary Consultations Dr Bourne- Pulmatt Brizuela- Cardiology Discharge Physical Examination Allergies: Coded Allergies: No Known Drug Allergies (Unverified , 02/04/17) Vitals & I&Os Vital Signs Date Time Temp Pulse Resp B/P (MAP) Pulse Ox O2 Delivery O2 Flow Rate FiO2 04/22/17 08:17 95 Nasal Cannula 1.00 04/22/17 04:00 98.0 79 19 115/62 (79) 04/21/17 10:29 28 Hospital Course Pt presented to the ER after a syncopal episode at [facility]. She was found to be hypoxic on arrival and in respiratory distress necessitating intubation and there was high clinical suspicious for PE so was started on TPA. CTA following stabilization revealed saddle pulmonary embolus. She was transitioned for a heparin gtt to Xarelto for anticoagulation. She continued to improve and was extubated on 04/19. Plans were to DC to IRU here for rehab but she improved so significantly she did not necessitate that intensive level of therapy. On day of discharge she was in improved condition and requesting DC home. She is to continue on Xarelto starter dose for 18 more days and then will switch to maintenance dose. Home health was arranged for discharge and she is to follow up with her PCP in 1 week. She was also set up for home oxygen per her home oxygen study. Labs (last 24 hrs) Laboratory Tests 04/21/17 17:20: Glucometer 125H 04/22/17 04:30: White Blood Count 8.8, Red Blood Count 3.21L, Hemoglobin 10.2L, Hematocrit 32L, Mean Corpuscular Volume 99, Mean Corpuscular Hemoglobin 32, Mean Corpuscular Hemoglobin Concent 32, Red Cell Distribution Width 13.8, Platelet Count 162, Mean Platelet Volume 11.1H, Neutrophils (%) (Auto) 77H, Lymphocytes (%) (Auto) 16, Monocytes (%) (Auto) 7, Eosinophils (%) (Auto) 0, Basophils (%) (Auto) 0, Neutrophils # (Auto) 6.8, Lymphocytes # (Auto) 1.4, Monocytes # (Auto) 0.6, Eosinophils # (Auto) 0.0, Basophils # (Auto) 0.0, Sodium Level 141, Potassium Level 3.6, Chloride Level 106, Carbon Dioxide Level 28, Anion Gap 7, Blood Urea Nitrogen 30H, Creatinine 0.67, Estimat Glomerular Filtration Rate > 60, BUN/ Creatinine Ratio 45, Glucose Level 117H, Calcium Level 9.0, Phosphorus Level 2.8 , Magnesium Level 2.0 Microbiology 04/17/17 MRSA Screen - Final, Complete Pending Labs Laboratory Tests 04/22/17 04:30: White Blood Count 8.8, Red Blood Count 3.21, Hemoglobin 10.2, Hematocrit 32, Mean Corpuscular Volume 99, Mean Corpuscular Hemoglobin 32, Mean Corpuscular Hemoglobin Concent 32, Red Cell Distribution Width 13.8, Platelet Count 162, Mean Platelet Volume 11.1, Neutrophils (%) (Auto) 77, Lymphocytes (%) (Auto) 16 , Monocytes (%) (Auto) 7, Eosinophils (%) (Auto) 0, Basophils (%) (Auto) 0, Neutrophils # (Auto) 6.8, Lymphocytes # (Auto) 1.4, Monocytes # (Auto) 0.6, Eosinophils # (Auto) 0.0, Basophils # (Auto) 0.0, Sodium Level 141, Potassium Level 3.6, Chloride Level 106, Carbon Dioxide Level 28, Anion Gap 7, Blood Urea Nitrogen 30, Creatinine 0.67, Estimat Glomerular Filtration Rate > 60, BUN/ Creatinine Ratio 45, Glucose Level 117, Calcium Level 9.0, Phosphorus Level 2.8 , Magnesium Level 2.0 Discussion & Recommendations Discharge Planning: >30 minutes discharge planning Discharge Home Medications: Active Scripts Active Xarelto (Rivaroxaban) 15 Mg Tablet 15 Mg PO BID@ Xarelto (Rivaroxaban) 20 Mg Tablet 20 Mg PO DAILY 30 Days Reported Magnesium (Magnesium Oxide) 250 Mg Tablet 250 Mg PO DAILY Calcium 600 + Vit D 200 Tablet (Calcium Carbonate/Vitamin D3) 1 Each Tablet 1 Tab PO DAILY Daily Multiple Vitamin (Multivitamin) 1 Each Tablet 1 Tab PO DAILY Omeprazole 20 Mg Capsule.dr 20 Mg PO BID Instructions to patient/family Please see electronic discharge instructions given to patient. Clinical Quality Measures DVT/VTE Risk/Contraindication: Risk Factor Score Per Nursin RFS Level Per Nursing on Admit: 4+=Very High Copy Copies To 1: DUNG KEYS DO Problem Qualifiers (1) Pulmonary embolus: Pulmonary embolism type: saddle Chronicity: acute Acute cor pulmonale presence: without acute cor pulmonale Qualified Codes: I26.92 - Saddle embolus of pulmonary artery without acute cor pulmonale (2) Anemia: Anemia type: unspecified type Qualified Codes: D64.9 - Anemia, unspecified (3) Aortic stenosis: Cardiac valve disease etiology: etiology unspecified Qualified Codes: I35.0 - Nonrheumatic aortic (valve) stenosis MARGARET LAMB MD Apr 22, 2017 9:35 am
--- NOTE | 2017-04-22 10:07 | Physical Therapy Daily Note ---
PT Daily Note-Current Subjective Patient agrees to PT. Dr. escudero. Pain Numeric Pain Scale: 0-No Pain Location: No Pain Reported Mental Status Patient Orientation: Normal For Age Attachments: Oxygen Transfers Functional [place] Measure 0=Not Assessed/NA 4=Minimal Assistance 1=Total Assistance 5=Supervision or Setup 2=Maximal Assistance 6=Modified [place] 3=Moderate Assistance 7=Complete IndependenceIRFPAI Quality Coding Scale 6 Independent with activity with or without an assistive device 5 Patient requires set up or clean up by helper. Patient completes activity by themselves 4 Supervision or touching assist (CGA). [place] provide cues , steadying assist 3 The helper provides less than half the effort to complete the activity 2 The helper provides more than half the effort to complete the activity 1 Dependent. The helper does all the effort to complete an activity 7 Patient refused to complete or attempt activity 9 The patient did not perform the activity before the current illness or injury 88 Not attempted due to Medical conditions or safety concerns Transfers (B, C, W/C) (FIM): 6 Scootin Rollin Supine to/from Sit: 6 Sit to/from Stand: 6 Bed to/from Chair: 6 Weight Bearing Right Lower Extremity: Right Weight Bearing/Tolerated Left Lower Extremity: Left Weight Bearing/Tolerated Gait Training Gait (FIM): 6 Distance (FIM): 3=150 ft Distance: >800' Gait Level of Assist: 6 Gait Assistive Device: FWW safe and functional Assessment During PT, RT present to test for home O2. Patient SAO2 on RA decreased to 75% requiring 4L O2 to increase to 90%. Refer to RT note. Patient to dismiss to home on home health. PT Correction Goals Field Technical Specialist Goals PT Correction Goals Time Frame: May 08, 2017 Transfers (B,C,W/C) (FIM): 6 Gait (FIM): 6 Gait distance (FIM): 3=150 ft Distance: 175' Gait Level of Assist: 6 Gait Assistive Device: FWW, Cane Single Point PT Plan Treatment/Plan Treatment Plan: Discontinue PT, goals met Treatment Plan: Bed Mobility, Education, Functional Activity Priya, Functional Strength, Gait, Safety, Therapeutic Exercise, Transfers Treatment Duration: May 08, 2017 Frequency: 6 times per week (increase to 11/wk when stable) Estimated Hrs Per Day: .5 hour per day Patient and/or Family Agrees t: Yes Discharge Recommendations Therapy D/C Recommendations: Physical Therapy Home Care Time/GCodes Time In: 915 Time Out: 940 Total Billed Treatment Time: 25 Total Billed Treatment 1 visit FA x 2 25 min EVARISTO WHITE PT Apr 22, 2017 10:07
[2017-04-22 12:05] VITALS: BP 141/70
[2017-04-22] MEDS ORDERED: PANTOPRAZOLE 40 MG (PROTONIX) TAB PO SCH (21:00)
== END 2017-04-22 14:00 | disposition home health service (06) | DRG 208 ==
LOC: EDUNIT# 17:14 → ER 17:18 → ICU 18:38 → 4TH 04-20 09:50
PROVIDERS: ADMIT Internal Medicine; ATTEND Internal Medicine
PROC: 5A1945Z Respiratory Ventilation, 24-96 Consecutive Hours (ICD-10-PCS; principal; 2017-04-17)
PROC: 3E03317 Introduction of Other Thrombolytic into Peripheral Vein, Percutaneous Approach (ICD-10-PCS; 2017-04-17)
PROC: 06HM33Z Insertion of Infusion Device into Right Femoral Vein, Percutaneous Approach (ICD-10-PCS; 2017-04-17)
DX: J96.01 Acute respiratory failure with hypoxia (principal); I26.92 Saddle embolus of pulmonary artery without acute cor pulmonale; E87.0 Hyperosmolality and hypernatremia; I35.0 Nonrheumatic aortic (valve) stenosis; E87.6 Hypokalemia; D69.59 Other secondary thrombocytopenia; E87.8 Other disorders of electrolyte and fluid balance, not elsewhere classified; J20.9 Acute bronchitis, unspecified; G47.33 Obstructive sleep apnea (adult) (pediatric); G25.81 Restless legs syndrome; K58.9 Irritable bowel syndrome, unspecified; K21.9 Gastro-esophageal reflux disease without esophagitis; D64.9 Anemia, unspecified; M19.91 Primary osteoarthritis, unspecified site; M54.9 Dorsalgia, unspecified; H91.93 Unspecified hearing loss, bilateral; R26.81 Unsteadiness on feet; Z96.641 Presence of right artificial hip joint; Z96.21 Cochlear implant status; Z97.4 Presence of external hearing-aid
CPT/HCPCS: 36415; 70470; 71045; 71275; 80048; 80053; 80061; 82805; 82962; 83735; 83874; 83880; 84100; 84484; 85025; 85049; 85379; 85610; 85730; 87081; 92977; 93005; 93041; 93306; 93970; 94002; 94003; 94640; 94760; 94761; 94799; 96361; 96365; 96367; 99291; 99292

== ENCOUNTER 2018-01-18 20:33 | Outpatient (CLI) | payer MEDICARE ==
[~2018-01-18 20:33] MED LIST changes: -ETOMIDATE IV SOLN 20 MG/10 ML VIAL ONE; -MIDAZOLAM 5 MG/5 ML (VERSED) VIAL ONE; +RIVA15TA PO; +RIVA20TA PO; -SUCCINYLCHOLINE INJ 100 MG/5 ML SYR ONE
== END 2018-01-19 06:16 | disposition home or self-care (01) ==
LOC: SLEEP 20:33
PROVIDERS: ATTEND Nurse Practitioner Family
DX: G47.10 Hypersomnia, unspecified (principal); G25.81 Restless legs syndrome; R06.00 Dyspnea, unspecified; I26.99 Other pulmonary embolism without acute cor pulmonale; Z86.711 Personal history of pulmonary embolism
CPT/HCPCS: 95810

== ENCOUNTER 2018-02-02 14:22 | Observation (INO) | payer MEDICARE ==
[~2018-02-02] VITALS: Ht 160 cm; Wt 79.3 kg
[2018-02-02] MEDS ORDERED: NITROGLYCERIN 0.4 MG SL TABS BTL 25'S SL PRN ×2 (14:45→19:00)
[2018-02-02] MEDS ORDERED: ASPIRIN 81 MG CHEW (CHILDREN'S ASA) PO ONE (14:45)
--- NOTE | 2018-02-02 14:47 | ED Chest Pain ---
General Stated Complaint: CHEST PAIN Source: patient, RN/MD (Dr Bourne), old records Exam Limitations: no limitations History of Present Illness Date Seen by Provider: Feb 02, 2018 Time Seen by Provider: 14:21 Initial Comments Patient presents to ER by private conveyance from Dr. Bourne, Pulmonology's office with chief complaint she's been having some pressure like something a large weight was sitting on her chest since she got up this morning. She's having some exertional dyspnea. Her vital signs were normal and Dr. Bourne's office. She is on Xarelto for history of back in May having a pulmonary embolism that they think may have originated from the GI tract. It was bad enough she ended up in the ICU got tPA and intubated before they discovered the cause of her symptoms. She has no primary history of coronary artery disease but she is followed by Dr. Brizuela for history of aortic stenosis. She has not had a valve replacement. She has been using oxygen at home ever since the pulmonary embolism but that's been improving steadily. She's not noticing any edema in her extremities, weight gain, sweats, nausea, vomiting, fevers, coughs or chills. While he did not immediately find a source for her pulmonary embolism she did have her hip replaced 2-1/2 months prior. Allergies and Home Medications Allergies Coded Allergies: No Known Drug Allergies (Unverified , 02/04/17) Home Medications Calcium Carbonate/Vitamin D3 1 Each Tablet, 1 TAB PO DAILY, (Reported) Magnesium Oxide 250 Mg Tablet, 250 MG PO DAILY, (Reported) Multivitamin 1 Each Tablet, 1 TAB PO DAILY, (Reported) Omeprazole 20 Mg Capsule., 20 MG PO BID, (Reported) Rivaroxaban 20 Mg Tablet, 20 MG PO DAILY Prescribed by: MARGARET JEAN on 04/22/17 0922 Rivaroxaban 15 Mg Tablet, 15 MG PO BID@ Prescribed by: MARGARET JEAN on 04/22/17 0937 Patient Home Medication List Home Medication List Reviewed: Yes Review of Systems Review of Systems Constitutional: No chills, No diaphoresis EENTM: No Blurred Vision, No Double Vision Respiratory: Denies Cough, Denies Orthopnea; Shortness of Air, SOA With Exertion, SOA at Rest; Denies Wheezing Cardiovascular: See HPI, Chest Pain; Denies Irregular Heart Rate, Denies Lightheadedness, Denies Palpitations Gastrointestinal: Denies Constipated, Denies Diarrhea, Denies Nausea, Denies Vomiting Genitourinary: Denies Drainage, Denies Frequency Musculoskeletal: No back pain, No joint pain Skin: No pruritus, No rash Psychiatric/Neurological: Denies Headache, Denies Numbness Past Ovhkgxk-Kxtrfe-Hmsukg Hx Patient Social History Alcohol Use: Denies Use Recreational Drug Use: No Smoking Status: Never a Smoker Recent Hopitalizations: No Immunizations Up To Date Date of Pneumonia Vaccine: Nov 17, 2011 Date of Influenza Vaccine: Dec 07, 2012 Seasonal Allergies Seasonal Allergies: No Past Medical History Surgeries: Yes (HIP ) Ear Surgery, Gallbladder, Orthopedic Respiratory: Yes (2016) Pneumonia Cardiac: Yes (AORTIC STENOSIS) Neurological: Yes (RESTLESS LEG) 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 Disorders: No Female 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 Disorders: Denies Sexually Transmitted Disease: No HIV/AIDS: No Genitourinary: No Gastrointestinal: Yes Gastroesophageal Reflux, Irritable Bowel Musculoskeletal: Yes Arthritis, Chronic Back Pain Endocrine: No HEENT: 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 5.0oz. 62.556835qh; 24.8 BMI Method:Estimated General Appearance: WD/WN, Mild Distress HEENT: PERRL/EOMI, TMs Normal, Normal ENT Inspection, Pharynx Normal, Moist Mucous Membranes Neck: Full Range of Motion, Normal Inspection Respiratory: Chest Non Tender, Lungs Clear, Normal Breath Sounds, No Accessory Muscle Use, No Respiratory Distress Cardiovascular: Regular Rate, Rhythm, No Edema, No Gallop, No Murmur, Normal Peripheral Pulses Gastrointestinal: Normal Bowel Sounds, Non Tender, Soft Extremity: Normal Capillary Refill, Normal Inspection, Normal Range of Motion, Non Tender, No Calf Tenderness, No Pedal Edema Neurologic/Psychiatric: Alert, Oriented x3 Skin: Normal Color, Warm/Dry Progress/Results/Core Measures Results/Orders Lab Results Laboratory Tests Test 02/02/18 14:30 Range/Units White Blood Count 6.0 4.3-11.0 10^3/uL Red Blood Count 3.95 L 4.35-5.85 10^6/uL Hemoglobin 12.9 11.5-16.0 G/DL Hematocrit 39 35-52 % Mean Corpuscular Volume 99 80-99 FL Mean Corpuscular Hemoglobin 33 25-34 PG Mean Corpuscular Hemoglobin Concent 33 32-36 G/DL Red Cell Distribution Width 13.4 10.0-14.5 % Platelet Count 156 130-400 10^3/uL Mean Platelet Volume 11.2 H 7.4-10.4 FL Neutrophils (%) (Auto) 55 42-75 % Lymphocytes (%) (Auto) 34 12-44 % Monocytes (%) (Auto) 8 0-12 % Eosinophils (%) (Auto) 3 0-10 % Basophils (%) (Auto) 0 0-10 % Neutrophils # (Auto) 3.3 1.8-7.8 X 10^3 Lymphocytes # (Auto) 2.0 1.0-4.0 X 10^3 Monocytes # (Auto) 0.5 0.0-1.0 X 10^3 Eosinophils # (Auto) 0.2 0.0-0.3 10^3/uL Basophils # (Auto) 0.0 0.0-0.1 10^3/uL Prothrombin Time 21.2 H 12.2-14.7 SEC INR Comment 1.8 H 0.8-1.4 Activated Partial Thromboplast Time 36 H 24-35 SEC D-Dimer 0.41 0.00-0.49 UG/ML Sodium Level 142 135-145 MMOL/L Potassium Level 3.6 3.6-5.0 MMOL/L Chloride Level 108 H 98-107 MMOL/L Carbon Dioxide Level 26 21-32 MMOL/L Anion Gap 8 5-14 MMOL/L Blood Urea Nitrogen 23 H 7-18 MG/DL Creatinine 0.81 0.60-1.30 MG/DL Estimat Glomerular Filtration Rate > 60 BUN/Creatinine Ratio 28 Glucose Level 131 H 70-105 MG/DL Calcium Level 9.3 8.5-10.1 MG/DL Corrected Calcium 9.2 8.5-10.1 MG/DL Magnesium Level 2.2 1.8-2.4 MG/DL Total Bilirubin 0.6 0.1-1.0 MG/DL Aspartate Amino Transf (AST/SGOT) 18 5-34 U/L Alanine Aminotransferase (ALT/SGPT) 13 0-55 U/L Alkaline Phosphatase 133 40-136 U/L Myoglobin 42.3 10.0-92.0 NG/ML Troponin I < 0.30 <0.30 NG/ML B-Type Natriuretic Peptide 98.1 <100.0 PG/ML Total Protein 6.9 6.4-8.2 GM/DL Albumin 4.1 3.2-4.5 GM/DL My Orders Orders - BRENDONMAYUR J Ekg Tracing (02/02/18 14:31) Cbc With Automated Diff (02/02/18 14:37) Magnesium (02/02/18 14:37) Chest 1 View, Ap/Pa Only (02/02/18 14:37) Cardiac Profile 1 (02/02/18 14:37) Comprehensive Metabolic Panel (02/02/18 14:37) Myoglobin Serum (02/02/18 14:37) Protime With Inr (02/02/18 14:37) Partial Thromboplastin Time (02/02/18 14:37) O2 (02/02/18 14:37) Monitor-Rhythm Ecg Trace Only (02/02/18 14:37) Lipid Panel (02/03/18 06:00) Aspirin Chewable Tablet (Baby Aspirin Ch (02/02/18 14:45) Nitroglycerin 0.4 Mg Btl 25's (Nitrostat (02/02/18 14:45) Saline Lock/Iv-Start (02/02/18 14:37) BNP (02/02/18 14:37) Fibrin Degradation Products (02/02/18 17:07) Medications Given in ED Current Medications Medications Dose Ordered Sig/Sergo Route Start Time Stop Time Status Last Admin Dose Admin Aspirin 324 mg ONCE ONCE PO 02/02/18 14:45 02/02/18 14:46 DC 02/02/18 14:46 324 MG Vital Signs/I&O 02/02/18 02/02/18 14:29 14:29 Temp 98.4 Pulse 76 Resp 20 B/P (MAP) 127/70 (89) Pulse Ox 96 96 O2 Delivery Room Air Room Air Progress Progress Note : Time: 14:46 Progress Note ED ACS 16 points. Not low risk. This patient is not a candidate for early discharge and should receive a standard chest pain evaluation with delayed troponin testing. She says she's faithfully taking the Xarelto and has no hypoxia on the monitor so it seems less likely that a repeat pulmonary embolism as the source of her trouble today. We'll start by looking at the heart and reviewing history. Echo April 2017 shows an ejection fraction 45-50% grade 1 diastolic dysfunction and aortic valve area approximately 1 cm similar to the year prior size. Initial ECG Impression Date: Feb 02, 2018 Initial ECG Impression Time: 14:36 Initial ECG Rate: 68 Initial ECG Rhythm: Normal Sinus Initial ECG Intervals: Normal Initial ECG Impression: Normal, Nonspecific Changes Initial ECG Comparisson: Changed Comment No ST elevation or depression. Left axis deviation. Diagnostic Imaging Diagonstic Imaging: Xray Plain Films/CT/US/NM/MRI: chest (1v) Comments [facility] [place], [place] NAME: [facility] REC#: [id number] PT STATUS: REG ER : 1935 PHYSICIAN: MAYUR OLIVAS MD ADMIT DATE: 02/02/18/ER Draft Date of Exam:02/02/18 CHEST 1 VIEW, AP/PA ONLY INDICATION: Shortness of breath, chest pain. FINDINGS: The lungs are clear. Heart size is stable. No vascular congestion, edema, pneumonia, effusion, or pneumothorax. IMPRESSION: Stable chest. Dictated on workstation # [id number] Dict: 02/02/18 1544 Trans: 02/02/18 1552 [id number] Interpreted by: CELINA PETERS Electronically signed by: Reviewed: Reviewed by Me Departure Communication (Admissions) Time/Spoke to Admitting Phy: 17:05 Discussed the case with Dr. Jean and she would like a timer. If not negative then she would recommend CT angiography of the chest. Time/Spoke to Consulting Phy: 17:00 Discussed the case with Dr. Brizuela and he would like us to call Dr. Zuniga which we did. He agrees with serial troponins and he would see the patient in the morning. Impression Primary Impression: Chest pain Qualified Codes: R07.9 - Chest pain, unspecified Disposition: 09 ADMITTED INPATIENT Condition: Stable Admissions Decision to Admit Reason: Admit from ER (General) Decision to Admit/Date: Feb 02, 2018 Time/Decision to Admit Time: 17:06 Departure-Patient Inst. Referrals: DEVONTE CORADO DC (PCP) Primary Care Physician MAYUR OLIVAS Feb 02, 2018 14:47
[2018-02-02 14:49] LABS: BASOPHILS % (AUTO) 0 % (0-10); EOSINOPHILS # (AUTO) 0.2 10^3/uL (0.0-0.3); EOSINOPHILS % (AUTO) 3 % (0-10); HEMATOCRIT 39 % (35-52); HEMOGLOBIN 12.9 G/DL (11.5-16.0); LYMPHOCYTES % (AUTO) 34 % (12-44); MEAN CORPUSCULAR HEMOGLOBIN 33 PG (25-34); MEAN CORPUSCULAR HGB CONC 33 G/DL (32-36); MEAN CORPUSCULAR VOLUME 99 FL (80-99); MEAN PLATELET VOLUME 11.2 FL (7.4-10.4); MONOCYTES # (AUTO) 0.5 X 10^3 (0.0-1.0); MONOCYTES % (AUTO) 8 % (0-12); NEUTROPHILS # (AUTO) 3.3 X 10^3 (1.8-7.8); NEUTROPHILS % (AUTO) 55 % (42-75); PLATELET COUNT 156 10^3/uL (130-400); RED BLOOD COUNT 3.95 10^6/uL (4.35-5.85); RED CELL DISTRIBUTION WIDTH 13.4 % (10.0-14.5)
[2018-02-02 14:59] LABS: INR 1.8 (0.8-1.4); PROTHROMBIN TIME PATIENT 21.2 SEC (12.2-14.7)
[2018-02-02 15:03] LABS: ALANINE AMINOTRANSFERASE 13 U/L (0-55); ALBUMIN 4.1 GM/DL (3.2-4.5); ALKALINE PHOSPHATASE 133 U/L (40-136); BILIRUBIN,TOTAL 0.6 MG/DL (0.1-1.0); BUN/CREATININE RATIO 28; CALCIUM 9.3 MG/DL (8.5-10.1); CARBON DIOXIDE 26 MMOL/L (21-32); CHLORIDE 108 MMOL/L (98-107); CREATININE SERUM 0.81 MG/DL (0.60-1.30); GFR ESTIMATED > 60; GLUCOSE 131 MG/DL (70-105); MAGNESIUM 2.2 MG/DL (1.8-2.4); POTASSIUM 3.6 MMOL/L (3.6-5.0); SODIUM 142 MMOL/L (135-145); TOTAL PROTEIN 6.9 GM/DL (6.4-8.2)
[2018-02-02 15:09] LABS: MYOGLOBIN SERUM 42.3 NG/ML (10.0-92.0)
--- NOTE | 2018-02-02 15:53 | Diagnostic Imaging Report ---
INDICATION: Shortness of breath, chest pain. FINDINGS: The lungs are clear. Heart size is stable. No vascular congestion, edema, pneumonia, effusion, or pneumothorax. IMPRESSION: Stable chest. Dictated by: Dictated on workstation # [id number]
[2018-02-02 18:40] VITALS: BP 149/88
[2018-02-02] MEDS ORDERED: morphine INJ 4 MG/ML 1 ML (VIAL/SYRINGE) IVP PRN (19:00)
[2018-02-02] MEDS ORDERED: ACETAMINOPHEN 500 MG TAB (TYLENOL) PO PRN (19:00)
[2018-02-02] MEDS ORDERED: ONDANSETRON 4 MG/2 ML (SDV) Z0FRAN IVP PRN (19:00)
[2018-02-02 20:00] VITALS: BP 136/90
[2018-02-02] MEDS ORDERED: ATORVASTATIN 40 MG (LIPITOR) TABLET PO SCH (21:00)
[2018-02-02 21:33] VITALS: BP 154/93
[2018-02-02] MEDS: meTOprolol TARTRATE 25 MG (LOPRESSOR) TABLET PO SCH (21:34)
[2018-02-02] MEDS ORDERED: lisINopril 5 MG (PRINIVIL) TABLET ONE (22:42)
[2018-02-02 22:46] VITALS: BP_SYST 125; BP_DIAS 70; BP_DIAS 75
[2018-02-03 01:19] VITALS: BP 120/66
[2018-02-03 03:54] LABS: BASOPHILS % (AUTO) 1 % (0-10); EOSINOPHILS # (AUTO) 0.2 10^3/uL (0.0-0.3); EOSINOPHILS % (AUTO) 6 % (0-10); HEMATOCRIT 37 % (35-52); LYMPHOCYTES # (AUTO) 1.7 X 10^3 (1.0-4.0); LYMPHOCYTES % (AUTO) 40 % (12-44); MEAN CORPUSCULAR HEMOGLOBIN 32 PG (25-34); MEAN CORPUSCULAR HGB CONC 33 G/DL (32-36); MEAN CORPUSCULAR VOLUME 99 FL (80-99); MEAN PLATELET VOLUME 11.5 FL (7.4-10.4); MONOCYTES # (AUTO) 0.5 X 10^3 (0.0-1.0); MONOCYTES % (AUTO) 13 % (0-12); NEUTROPHILS # (AUTO) 1.7 X 10^3 (1.8-7.8); NEUTROPHILS % (AUTO) 40 % (42-75); PLATELET COUNT 139 10^3/uL (130-400); RED BLOOD COUNT 3.72 10^6/uL (4.35-5.85); RED CELL DISTRIBUTION WIDTH 13.3 % (10.0-14.5); WHITE BLOOD COUNT 4.1 10^3/uL (4.3-11.0)
[2018-02-03 04:12] VITALS: BP 133/75
[2018-02-03 04:20] LABS: BUN/CREATININE RATIO 25; CARBON DIOXIDE 23 MMOL/L (21-32); CHLORIDE 110 MMOL/L (98-107); CHOLESTEROL 161 MG/DL (< 200); CREATININE SERUM 0.69 MG/DL (0.60-1.30); GFR ESTIMATED > 60; GLUCOSE 80 MG/DL (70-105); HDL CHOLESTEROL 47 MG/DL (40-60); POTASSIUM 3.6 MMOL/L (3.6-5.0); SODIUM 143 MMOL/L (135-145); TRIGLYCERIDES 84 MG/DL (<150); VLDL CHOLESTEROL 17 MG/DL (5-40)
[2018-02-03] MEDS: meTOprolol TARTRATE 25 MG (LOPRESSOR) TABLET PO SCH (08:05)
--- NOTE | 2018-02-03 08:06 | Consultation-Cardiology ---
HPI-Cardiology Cardiology Consultation: Date of Consultation 02/03/18 Time Seen by a Provider: 08:20 Date of Admission 02-02-18 Attending Physician Fely Mcintosh DO Admitting Physician Fely Mcintosh DO Consulting Physician Anupama Brizuela MD HPI: Chief Complaint: STEINBERG Chest discomfort Ms. Sierra is an 82 year old female who was admitted to ICU 4 from the ED. She states yesterday she had her routine appt with Dr. Bourne. She reports yesterday morning when she woke up she was feeling more short of breath than her usual baseline. She reports she was feeling some pressure in her upper chest. She notified Dr. Bourne at her appt and he advised her to be evaluated in the ED. She reports the SOB is back to her usual baseline. She reports the chest pressure is improved. She reports she feels it is worse when she lies down flat. She states the pressure has been constant. She describes it as a dull pressure. No c/o n/v/d. No c/o fever or chills. No c/o cough. No c/o LE edema. She reports increased stress d/t the holidays. She reports she has been doing a lot of cleaning at home in preparation for family arriving for the holidays. She would like to go home. Review of Systems-Cardiology Review of Systems Constitutional: No chills, No fever, No weight loss Eyes: No vision change Ears/Nose/Throat: No epistaxis, No nasal drainage, No recent hearing loss Respiratory: As described under HPI Cardiovascular: As described under HPI Gastrointestinal: No constipation, No diarrhea, No nausea, No vomiting Genitourinary: No dysuria, No hematuria Musculoskeletal: no symptoms reported Skin: No rash, No ulcerations Psychiatric/Neurological: No anxiety, No depression, No seizure, No focal weakness, No syncope Hematologic: No bleeding abnormalities PSM-Njaqre-Liajdi Hx Patient Social History Alcohol Use: Denies Use Recreational Drug Use: No Smoking Status: Never a Smoker Recent Foreign Travel: No Recent Infectious Disease Expo: No Hospitalization with Isolation: Denies Physical Abuse Screen: No Sexual Abuse: No Immunizations Up To Date Date of Pneumonia Vaccine: Jan 08, 2018 Date of Influenza Vaccine: Nov 16, 2017 Past Medical History PMH As described under Assessment. Family Medical History Family Medical History: Does not report fam h/o or early CAD or SCD (taken from previous records) Family History: Diabetes mellitus 19 FATHER 19 MOTHER FH: heart disease 19 MOTHER FH: muscular dystrophy G8 BROTHER (Friedreich's Ataxia) Hypertension Myocardial infarction 19 MOTHER Allergies and Home Medications Allergies Coded Allergies: No Known Drug Allergies (Unverified , 02/04/17) Home Medications Calcium Carbonate/Vitamin D3 1 Each Tablet, 1 TAB PO DAILY, (Reported) Magnesium Oxide 250 Mg Tablet, 250 MG PO DAILY, (Reported) Multivitamin 1 Each Tablet, 1 TAB PO DAILY, (Reported) Omeprazole 20 Mg Capsule.dr, 20 MG PO DAILY, (Reported) Rivaroxaban 20 Mg Tablet, 20 MG PO DAILY, (Reported) Physical Exam-Cardiology Physical Exam Vital Signs/I&O Capillary Refill : Less Than 3 Seconds Constitutional: AAO x 3, well-developed, well-nourished HEENT: PERRL, hearing is well preserved, oral hygience is good Neck: No carotid bruit; carotid pulses are 2 + bilaterally Respiratory: No accessory muscle use, No respiratory distress; chest expansion is symmetric, chest is bilaterally symmetric, lungs clear to auscultation Cardiovascular: regular rate-rhythm; No JVD; S1 and S2, systolic murmur Gastrointestinal: No tender; soft, round, audible bowel sounds Extremities: no lower extremity edema bilateral Neurologic/Psychiatric: grossly intact, power is 5/5 both on sides Skin: No rash, No ulcerations Data Review Labs Radiology NAME: MO[facility]EN [facility] REC#: [id number] PT STATUS: REG ER : 1935 PHYSICIAN: MAYUR OLIVAS MD ADMIT DATE: 02/02/18/ER Signed Date of Exam: 02/02/18 CHEST 1 VIEW, AP/PA ONLY INDICATION: Shortness of breath, chest pain. FINDINGS: The lungs are clear. Heart size is stable. No vascular congestion, edema, pneumonia, effusion, or pneumothorax. IMPRESSION: Stable chest. Dictated by: Dictated on workstation # [id number] Dict: 02/02/18 1544 Trans: 02/02/18 1645 Interpreted by: CELINA PETERS Electronically signed by: CELINA PETERS 02/02/18 1645 ECG Impression ECG Initial ECG Rhythm: Normal Sinus A/P-Cardiology Assessment/Admission Diagnosis Chest discomfort of undetermined etiology - no evidence of ACS STEINBERG of undetermined etiology - feels back to baseline H/O Acute resp failure due to massive pulm embolism, treated with thrombolysis and mech vent in early April 2017. Extubated on 04/20/17. Currently on rivaroxaban Bipolar R hemiarthroplasty on 02/04/17 for R hip fracture due a non-syncopal fall Moderately severe aortic stenosis. Echo of shows aortic valve area 0.8 sq cm, LVEF 55-60%, PASP 35 mmHg and grade I diastolic dysfunction of the LV. Repeat echo of 04/17/17 shows LVEF 45-50%, AoV area approx 1 sq cm, grade I rodrigues dysfunction Mild bilateral leg swelling, likely related to venous insuff, no clinical evidence of CHF No significant CAD on card cath of 2012 Nocturnal hypoxemia requiring supplemental oxygen at hs Discussion and Recomendations Non-specific chest discomfort of undetermined etiology - no evidence of ACS STEINBERG which she feels is back to her usual baseline Continue home medication regimen Continue Xarelto d/t h/o PE earlier this year - management per pulmonary/ medical services Clinical Quality Measures DVT/VTE Risk/Contraindication: Risk Factor Score Per Nursin RFS Level Per Nursing on Admit: 4+=Very High CINDY BLACKWOOD Feb 03, 2018 08:06
[2018-02-03 08:21] VITALS: BP 131/71
[2018-02-03] MEDS ORDERED: ASPIRIN E.C. 81 MG (ECOTRIN) TAB PO SCH (09:00)
[2018-02-03] MEDS ORDERED: lisINopril 5 MG (PRINIVIL) TABLET PO SCH (09:00)
[2018-02-03] MEDS ORDERED: RIVA20TA PO (09:36)
--- NOTE | 2018-02-03 10:29 | Short Stay Summary-Hospitalist ---
History of Present Illness HPI/Chief Complaint CC: Chest pain HPI: This is an 82yoWF clinic patient of mine with a h/o near episode due to saddle PE with collapse in Braum's early this past year 3 months after hip fracture who presented to Dr Bourne's office for follow up appt but complained of chest pressure so she was sent to the ER and evaluated and placed in observation and Cardiology was consulted. Patient deemed stable from Cardiology and is currently wanting to go home. Source: patient, RN/MD Exam Limitations: no limitations Date Seen 02/03/18 Time Seen by a Provider: 10:15 Attending Physician Fely Mcintosh DO PCP Fely Mcintosh DO Referring Physician Date of Admission Feb 02, 2018 at 17:05 Home Medications & Allergies Home Medications Reviewed patient Home Medication Reconciliation performed by pharmacy medication reconciliations research instrumentation technician and/or nursing. Patients Allergies have been reviewed. Allergies Allergies Coded Allergies No Known Drug Allergies (Vinsjqppon22/20/17) Past Wpdybhz-Diarex-Wzendb Hx Past Med/Social Hx: Reviewed Nursing Past Med/Soc Hx, Reviewed and Corrections made Patient Social History Marrital Status: Employed/Student: retired Alcohol Use: Denies Use Recreational Drug Use: No Smoking Status: Never a Smoker Physical Abuse Screen: No Sexual Abuse: No Recent Foreign Travel: No Contact w/other who traveled: No Recent Hopitalizations: No Recent Infectious Disease Expo: No Immunizations Up To Date Pediatric: Yes Date of Pneumonia Vaccine: Jan 08, 2018 Date of Influenza Vaccine: Nov 16, 2017 Seasonal Allergies Seasonal Allergies: No Past Medical History Surgeries: Ear Surgery, Gallbladder, Orthopedic Respiratory: Pulmonary Embolism Currently Using CPAP: No Currently Using BIPAP: No : No 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: No Sexually Transmitted Disease: No HIV/AIDS: No Female 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 Disorders: Denies Menopausal Gastrointestinal: Gastroesophageal Reflux, Irritable Bowel Musculoskeletal: Arthritis, Chronic Back Pain HEENT: Cataract 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, Bilateral Hearing Aide History of Blood Disorders: No Adverse Reaction to Blood Sandhu: No Family History Diabetes mellitus 19 FATHER 19 MOTHER FH: heart disease 19 MOTHER FH: muscular dystrophy G8 BROTHER (Friedreich's Ataxia) Hypertension Myocardial infarction 19 MOTHER No Pertinent Family Hx Review of Systems Constitutional: see HPI EENTM: no symptoms reported Respiratory: no symptoms reported Cardiovascular: chest pain Gastrointestinal: no symptoms reported Genitourinary: no symptoms reported Musculoskeletal: no symptoms reported Skin: no symptoms reported Psychiatric/Neurological: No Symptoms Reported All Other Systems Reviewed Negative Unless Noted: Yes Physical Exam Physical Exam Vital Signs Vital Signs - First Documented 02/02/18 22:46 O2 Flow Rate 2.00 Capillary Refill : Less Than 3 Seconds Height, Weight, BMI Height: 5'3.00" Weight: 174lbs. 12.8oz. 79.312206ao; 29.2 BMI Method:Stated General Appearance: No Apparent Distress, WD/WN, Chronically ill Eyes: Bilateral Eye Normal Inspection, Bilateral Eye PERRL HEENT: PERRL/EOMI, Normal ENT Inspection, Pharynx Normal Neck: Full Range of Motion, Normal Inspection, Non Tender, Supple, Carotid Bruit Respiratory: Chest Non Tender, Lungs Clear, Normal Breath Sounds, No Accessory Muscle Use, No Respiratory Distress Cardiovascular: Regular Rate, Rhythm, No Edema, No Gallop, No JVD, No Murmur, Normal Peripheral Pulses Gastrointestinal: Normal Bowel Sounds, No Organomegaly, No Pulsatile Mass, Non Tender, Soft Back: Normal Inspection, No CVA Tenderness, No Vertebral Tenderness Extremity: Normal Capillary Refill, Normal Inspection, Normal Range of Motion, Non Tender, No Calf Tenderness, No Pedal Edema Neurologic/Psychiatric: Alert, Oriented x3, No Motor/Sensory Deficits, Normal Mood/Affect Skin: Normal Color, Warm/Dry Lymphatic: No Adenopathy Results Results/Procedures Labs Laboratory Tests 02/02/18 14:30 02/03/18 03:10 Patient resulted labs reviewed. 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 heart disease RLS IBS GERD Conclusion Plan DC planned Cardiology appt 2 weeks Diagnosis/Problems Diagnosis/Problems (1) Chest pain Status: Resolved Qualifiers: Qualified Codes: R07.9 - Chest pain, unspecified Resolution Date/Time: 02/03/18 @ 20:36 (2) Hx pulmonary embolism Status: Chronic (3) RLS (restless legs syndrome) Status: Chronic (4) GERD (gastroesophageal reflux disease) Status: Chronic Qualifiers: Qualified Codes: K21.9 - Gastro-esophageal reflux disease without esophagitis (5) 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
[2018-02-03 11:29] VITALS: BP 117/68
--- NOTE | 2018-02-03 13:19 | Consultation-Cardiology ---
HPI-Cardiology Cardiology Consultation: Date of Consultation 02/03/18 Time Seen by a Provider: 09:30 Date of Admission Attending Physician Rhonda Roman Aprn Admitting Physician Fely Mcintosh DO Consulting Physician LAYLA ELLISON MD, MA, FACP, FACC, FSCAI, CCDS HPI: Chief Complaint: CC: Chest discomfort, shortness of breath 82 yo woman admitted with chest discomfort and shortness of breath. Had gone to Dr Dutton yesterday from where she was referred to ER from where she was admitted for observation. Had vague transthoracic discomfort all day yesterday, mild, unrelated to exertion, non-radiating, associated with mild shortness of breath, w/o any particular aggravating or relieving factors, lasted a day and is resolved this am. No palp or syncope or leg swelling Review of Systems-Cardiology Review of Systems Constitutional: malaise, tiredness; No weight loss, No weight gain Eyes: No vision change Ears/Nose/Throat: No ear discharge, No nasal drainage, No ulcerations Respiratory: As described under HPI Cardiovascular: As described under HPI Gastrointestinal: No constipation, No diarrhea, No nausea Genitourinary: No dysuria, No hematuria, No urine frequency changes Musculoskeletal: No back pain, No joint pain Skin: No rash, No ulcerations Psychiatric/Neurological: No seizure, No focal weakness, No syncope Hematologic: No bleeding abnormalities JOM-Bifbjj-Nxgguv Hx Immunizations Up To Date Date of Pneumonia Vaccine: Jan 08, 2018 Date of Influenza Vaccine: Nov 16, 2017 Past Medical History PMH As described under Assessment. Family Medical History Family Medical History: Does not report fam h/o or early CAD or SCD (taken from previous records) Family History: Diabetes mellitus 19 FATHER 19 MOTHER FH: heart disease 19 MOTHER FH: muscular dystrophy G8 BROTHER (Friedreich's Ataxia) Hypertension Myocardial infarction 19 MOTHER Allergies and Home Medications Allergies Coded Allergies: No Known Drug Allergies (Unverified , 02/04/17) Home Medications Calcium Carbonate/Vitamin D3 1 Each Tablet, 1 TAB PO DAILY, (Reported) Magnesium Oxide 250 Mg Tablet, 250 MG PO DAILY, (Reported) Multivitamin 1 Each Tablet, 1 TAB PO DAILY, (Reported) Omeprazole 20 Mg Capsule.dr, 20 MG PO DAILY, (Reported) Rivaroxaban 20 Mg Tablet, 20 MG PO DAILY, (Reported) Patient Home Medication List Home Medication List Reviewed: Yes Physical Exam-Cardiology Physical Exam Vital Signs/I&O Capillary Refill : Constitutional: AAO x 3, well-developed, well-nourished HEENT: hearing is well preserved; No xanthelasmas are seen Neck: No carotid bruit; carotid pulses are 2 + bilaterally Respiratory: No accessory muscle use; lungs clear to percussion, lungs clear to auscultation Cardiovascular: regular rate-rhythm, S1 and S2, systolic murmur (2/6 MSM) Gastrointestinal: No tender; soft; No guarding, No rebound; audible bowel sounds Extremities: No clubbing, No cyanosis, No significant edema Neurologic/Psychiatric: oriented x 3, grossly intact, power is 5/5 both on sides Skin: No rash on exposed areas, No ulcerations on exposed areas A/P-Cardiology Assessment/Admission Diagnosis Vague chest discomfort w/o any evidence of ACS. 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 Extubated on 04/20/17. Currently on rivaroxaban Bipolar R hemiarthroplasty on 02/04/17 for R hip fracture due a nonsyncopal fall Moerately severe aortic stenosis. Echo of shows aortic valve area 0.8 sq cm, LVEF 55-60%, PASP 35 mmHg and grade I diastolic dysfunction of the LV. Repeat echo of 04/17/17 shows LVEF 45-50%, AoV area approx 1 sq cm, grade I rodrigues dysfunction Mild bilateral leg swelling, likely related to venous insuff, no clinical evidence of CHF No significant CAD on card cath of 2012 Nocturnal hypoxemia requiring supplemental oxygen at hs Discussion and Recomendations * Continue previous regimen * Risk factor mod reviewed * Outpt f/u advised LAYLA ELLISON MD FACP FAC CCDS Feb 03, 2018 13:19
[2018-02-03] MEDS ORDERED: RIVAROXABAN 20 MG TABLET (XARELTO) PO SCH (17:00)
[2018-02-04] MEDS ORDERED: MULTIVIT W/MINERALS TAB (THERAGRAN M) PO SCH (07:00)
[2018-02-04] MEDS ORDERED: CALCIUM CARB + VIT D 600 MG (CALCARB + D) TAB PO SCH (09:00)
[2018-02-04] MEDS ORDERED: RIVAROXABAN 20 MG TABLET (XARELTO) PO SCH (09:00)
[2018-02-04] MEDS ORDERED: PANTOPRAZOLE 20 MG TABLET (PROTONIX) PO SCH (09:00)
[2018-02-04] MEDS ORDERED: NON-FORMULARY MEDICATION 1 EA EA (Magnesium Oxide (Magnesium) 250 MG) PO SCH (09:00)
== END 2018-02-03 10:29 | disposition home or self-care (01) ==
LOC: EDUNIT# 14:22 → ER 14:23 → ICU 17:05 → UNDOADMOB 17:05 → ICU 18:30 → UNDODISOB 02-03 11:15
PROVIDERS: ADMIT Family Medicine; ATTEND Internal Medicine
DX: R07.9 Chest pain, unspecified (principal); G25.81 Restless legs syndrome; K58.9 Irritable bowel syndrome, unspecified; K21.9 Gastro-esophageal reflux disease without esophagitis; R09.02 Hypoxemia; Z86.711 Personal history of pulmonary embolism; Z96.21 Cochlear implant status; Z79.899 Other long term (current) drug therapy
CPT/HCPCS: 36415; 71045; 80048; 80053; 80061; 83735; 83874; 83880; 84484; 85025; 85379; 85610; 85730; 93005; 93041

== ENCOUNTER 2018-03-11 20:31 | Outpatient (CLI) | payer MEDICARE | END 2018-03-12 07:00 | disposition home or self-care (01) | LOC: SLEEP 20:31 | PROVIDERS: ATTEND Nurse Practitioner Family | DX: G47.33 Obstructive sleep apnea (adult) (pediatric) (principal); G25.81 Restless legs syndrome; R06.00 Dyspnea, unspecified; I26.99 Other pulmonary embolism without acute cor pulmonale; G47.10 Hypersomnia, unspecified; Z86.711 Personal history of pulmonary embolism | CPT/HCPCS: 95811 ==

== ENCOUNTER 2018-03-17 11:13 | Outpatient (RCR) | payer MEDICARE | END 2018-03-24 09:14 | disposition home or self-care (01) | PROVIDERS: ATTEND Chiropractor | DX: M54.5 Low back pain (principal) ==

== ENCOUNTER → 2018-03-23 | Outpatient (CLI) | payer MEDICARE ==
[~2018-03-23] MED LIST changes: +REGADENOSON 0.4 MG/5 ML SYR (LEXISCAN) IV ONE
[2018-03-23] MEDS: CATHETER FLUSH 10 ML SYR IV PRN ×2 (11:31→13:07)
[2018-03-23 13:05] VITALS: BP 117/71
--- NOTE | 2018-03-24 13:31 | STRESS TEST ---
DATE OF SERVICE: 03/23/2018 RESTING AND POST REGADENOSON TECHNETIUM-99M TETROFOSMIN SPECT CT IMAGING ORDERING PHYSICIAN: Dr. Brizuela. PRIMARY CARE PHYSICIAN: Dr. Mcintosh. CLINICAL DIAGNOSIS: Shortness of breath and aortic stenosis. Baseline images were carried out after injection of 10.56 mCi technetium-99m Tetrofosmin. This was followed by 0.4 mg Regadenoson and 29.3 mCi of technetium-99m Tetrofosmin for stress imaging. The electrocardiogram showed sinus rhythm at baseline and did not change significantly with the Regadenoson infusion. The patient tolerated the procedure well. Review of images at rest and following stress does not indicate any significant perfusion defects consistent with significant myocardial ischemia or infarction. Gated images show normal global left ventricular systolic function with a normal regional wall motion. Left ventricular ejection fraction is calculated to be 70%. Left ventricular end diastolic volume is 41 mL. TID is absent (1.02). CONCLUSIONS: 1. No evidence of myocardial ischemia or infarction is seen. 2. Normal regional wall motion. 3. Normal global left ventricular systolic function with a calculated ejection fraction of 70%. Job ID: [id number] DocumentID: [id number] Dictated Date: 03/24/2018 13:15:21 Set Up Mechanic [employer] Machine Date: 03/24/2018 13:30:45 Dictated By: LAYLA BRIZUELA MD, MA, FACP, FACC,
== END ==
LOC: CARD 11:16
PROVIDERS: ATTEND Nurse Practitioner Family
DX: R06.09 Other forms of dyspnea (principal); I35.0 Nonrheumatic aortic (valve) stenosis; Z86.711 Personal history of pulmonary embolism
CPT/HCPCS: 78452; 93017; 93306

== ENCOUNTER → 2018-11-16 | Outpatient (CLI) | payer MEDICARE ==
[~2018-11-16] MED LIST changes: -OMEP20CA12 PO; +OMEP20CA13 PO; -REGADENOSON 0.4 MG/5 ML SYR (LEXISCAN) IV ONE; +RIVA10T PO; -RIVA10TA PO; -RIVA15TA PO; +RIVA15TA2 PO; -RIVA20TA PO; +RIVA20TA2 PO
== END ==
LOC: RAD 12:26
PROVIDERS: ATTEND Internal Medicine Cardiovascular Disease
DX: I70.213 Atherosclerosis of native arteries of extremities with intermittent claudication, bilateral legs (principal); I35.0 Nonrheumatic aortic (valve) stenosis; G47.33 Obstructive sleep apnea (adult) (pediatric); Z86.711 Personal history of pulmonary embolism
CPT/HCPCS: 93923

== ENCOUNTER 2019-04-23 20:34 | Outpatient (CLI) | payer MEDICARE ==
[~2019-04-23 20:34] MED LIST changes: +ACHYD1T PO; -HYDR-3820 PO; -OMEP20CA13 PO; +OMEP20CA18 PO; +OMEP40CA27 PO; +ROPI1TAB PO; -ROPI1TAB2 PO
== END 2019-04-24 06:45 | disposition home or self-care (01) ==
LOC: SLEEP 20:34
PROVIDERS: ATTEND Nurse Practitioner Family
DX: G47.33 Obstructive sleep apnea (adult) (pediatric) (principal); G47.50 Parasomnia, unspecified
CPT/HCPCS: 95811

== ENCOUNTER → 2019-05-03 | Outpatient (CLI) | payer MEDICARE ==
[2019-05-03 10:12] LABS: BILIRUBIN,URINE NEGATIVE (NEGATIVE); CLARITY,URINE CLEAR; COLOR,URINE YELLOW; GLUCOSE, URINE (UA) NEGATIVE (NEGATIVE); KETONES,URINE NEGATIVE (NEGATIVE); LEUKOCYTE ESTERASE ,URINE NEGATIVE (NEGATIVE); NITRITE,URINE NEGATIVE (NEGATIVE); PROTEIN,URINE NEGATIVE (NEGATIVE)
--- NOTE | 2019-05-03 10:13 | Diagnostic Imaging Report ---
INDICATION: Abdominal pain. TECHNIQUE: KUB at 10:19 AM. FINDINGS: There are postop changes from right hip arthroplasty. The gallbladder appears to be surgically absent. There is scoliosis of the lumbar spine. The bowel gas pattern is normal. There are no pathologic masses or calcifications. IMPRESSION: No acute abnormalities in the abdomen. Dictated by: Dictated on workstation # [id number]
[2019-05-03 10:33] LABS: AMORPHOUS SEDIMENT,UR FEW AMOR URATES /LPF; BACTERIA,URINE NEGATIVE /HPF
== END ==
LOC: RAD 09:46
PROVIDERS: ATTEND Internal Medicine
DX: R10.9 Unspecified abdominal pain (principal)
CPT/HCPCS: 74018; 81000

== ENCOUNTER → 2019-08-22 | Outpatient (CLI) | payer MEDICARE | LOC: CARD 10:05 | PROVIDERS: ATTEND Internal Medicine Cardiovascular Disease | DX: I35.0 Nonrheumatic aortic (valve) stenosis (principal); I65.23 Occlusion and stenosis of bilateral carotid arteries; G47.33 Obstructive sleep apnea (adult) (pediatric); I26.99 Other pulmonary embolism without acute cor pulmonale | CPT/HCPCS: 93306 ==

== ENCOUNTER 2019-12-20 10:01 | Outpatient (RCR) | payer MEDICARE ==
[~2019-12-20 10:01] MED LIST changes: -CALC-6 PO; +CALC1TAB84 PO
== END 2020-01-15 | disposition home or self-care (01) ==
PROVIDERS: ATTEND Physician Assistant
DX: M70.61 Trochanteric bursitis, right hip (principal)

== ENCOUNTER 2019-12-27 08:00 | Day surgery (SDC) | payer MEDICARE ==
[~2019-12-27] VITALS: Ht 157 cm; Wt 134.0 kg
[2019-12-27] VITALS (13 sets, daily range): BP systolic 116–166; BP diastolic 57–83
[2019-12-27 07:29] LABS: HEMOGLOBIN 12.8 g/dL (11.5-16.0); MEAN PLATELET VOLUME 10.5 fL (9.0-12.2); WHITE BLOOD COUNT 5.6 10^3/uL (4.3-11.0)
[2019-12-27 07:39] LABS: INR 0.9 (0.8-1.4)
[2019-12-27 07:46] LABS: ALANINE AMINOTRANSFERASE 14 U/L (0-55); ALBUMIN 4.1 GM/DL (3.2-4.5); ALKALINE PHOSPHATASE 113 U/L (40-136); BILIRUBIN,TOTAL 1.1 MG/DL (0.1-1.0); BUN/CREATININE RATIO 20; CALCIUM 9.2 MG/DL (8.5-10.1); CARBON DIOXIDE 25 MMOL/L (21-32); CHLORIDE 104 MMOL/L (98-107); CHOLESTEROL 194 MG/DL (< 200); CREATININE SERUM 0.86 MG/DL (0.60-1.30); GFR ESTIMATED > 60; GLUCOSE 98 MG/DL (70-105); HDL CHOLESTEROL 61 MG/DL (40-60); POTASSIUM 3.6 MMOL/L (3.6-5.0); SODIUM 140 MMOL/L (135-145); TOTAL PROTEIN 6.9 GM/DL (6.4-8.2); TRIGLYCERIDES 95 MG/DL (<150); VLDL CHOLESTEROL 19 MG/DL (5-40)
[~2019-12-27 08:00] MED LIST changes: +HEParin (CATH LAB) 2,000 ML IV ONE; +LIDOCAINE 1% INJ 20 ML 20 ML VIAL ONE; +NS IV 1000 ML 1,000 ML IV SCH; +NS IV 1000 ML 1,000 ML ONE
[2019-12-27] MEDS ORDERED: MIDAZOLAM 5 MG/5 ML (VERSED) VIAL ONE (08:07)
[2019-12-27] MEDS ORDERED: fentaNYL INJECTION 100 MCG/2 ML AMP ONE (08:07)
--- NOTE | 2019-12-27 09:19 | Cardiac Procedure Note-CS/ASA ---
Pre-Procedure Note Pre-Op Procedure Note H&P Reviewed The H&P was reviewed, patient examined and no changes noted. Date H&P Reviewed: Dec 27, 2019 Time H&P Reviewed: 08:20 Conscious Sedation Pre-Proced Time 08:20 ASA Score 3 For ASA 3 and 4: Consider anesthesia and medical clearance. Also, for patients with a history of failed moderate sedation consider anesthesia. Airway Lungs Heart ASA score ASA 1: a normal healthy patient ASA 2: a patient with a mild systemic disease (mid diabetes, controlled hypertension, obesity ASA 3: a patient with a severe systemic disease that limits activity (angina, COPD, prior Myocardial infarction) ASA 4: a patient with an incapacitating disease that is a constant threat to life (CHF, renal failure) ASA 5: a moribund patient not expected to survive 24 hrs. (ruptured aneurysm) ASA 6: a declared brain- patient whose organs are being harvested. For emergent operations, add the letter E after the classification Mallampati Classification Grade 2 Sedation Plan Analgesia, Amnesia, Plan communicated to team members, Discussed options with patient/fam, Discussed risks with patient/fam The patient is an appropriate candidate to undergo the planned procedure, sedation, and anesthesia. The patient immediately re-assessed prior to indication. LAYLA ELLISON MD FACP FAC CCDS Dec 27, 2019 09:19
--- NOTE | 2019-12-27 09:22 | Discharge Inst-Cardiology ---
Discharge Inst-Cardiac Discharge Medications Continued Medications: Omeprazole (Omeprazole) 20 Mg Capsule.dr 20 MG PO BID, CAP Rivaroxaban (Xarelto Tablet) 20 Mg Tablet 20 MG PO DAILY, TAB LAYLA ELLISON MD FACP [facility] CCDS Dec 27, 2019 09:22
--- NOTE | 2019-12-27 09:22 | Discharge Inst-Post CATH ---
Discharge Inst-CATH/EP Post Cardiac Cath/EP D/C Inst Follow Up/Plan F/u with Dr Brizuela in 1-2 weeks ACTIVITY * Go Home directly and rest. * Limit activity of the leg (or wrist if it was used) for 7 days including aerobics, swimming, jogging, bicycling, etc. * Restrict stair-climbing for 7 days if possible, if not, climb up with your non-cath leg, then bring together on the same step. * Avoid lifting, pushing, pulling or excessive movement of the affected extremity for 7 days. * Customary sexual activity may be resumed after 2 days-use caution not to use a position that strains or causes pain to the affected extremity. * No driving for 24 hours. * NO SMOKING. * Avoid straining for bowel movements for 7 days. * Gentle walking on level ground is allowed. * Returning to work will depend on the type of procedure and the results. Your doctor will discuss this with you. CALL YOUR DOCTOR FOR ANY OF THE FOLLOWING: *If bleeding from the puncture site occurs- Apply gentle pressure to site with clean cloth and call your doctor or EMS. * If a knot or lump forms under the skin, increases in size, or causes pain. * If bruising appears to be worsening or moving further down your leg instead of disappearing. * Temperature above 101 F. CARE OF YOUR GROIN INCISION; * Bruising or purple discoloration of the skin near the puncture site is common. * You may shower only, no bathtub bathing for 5 days. Be careful to avoid slipping as your leg may feel stiff. * If a closure device was used on your femoral artery, please see the attached guide regarding care of the device and your leg. * Leave dressing on FOR 24 hours. CARE OF YOUR WRIST INCISION; * Bruising or purple discoloration of the skin near the puncture site is common. * You may shower. * DO NOT submerge wrist. * Leave dressing on FOR 24 hours. LAYLA BRIZUELA MD [facility] CCDS Dec 27, 2019 09:22
[2019-12-27] MEDS ORDERED: PATIENT MAY USE OWN MEDS, ALL PO SCH (09:30)
--- NOTE | 2019-12-27 10:22 | CARDIAC CATHETERIZATION ---
DATE OF SERVICE: 12/27/2019 CARDIAC CATHETERIZATION REPORT INDICATION FOR PROCEDURE: The patient is an 84-year-old lady, who has a severe to critical aortic stenosis and has opted to proceed with intervention for this valve. Cardiac catheterization was carried out after having obtained an informed consent. DESCRIPTION OF PROCEDURE: She was brought to the cardiac catheterization laboratory in a fasting state. Right groin was prepared and draped in the usual sterile fashion. Lidocaine 1% was used for local anesthesia. Modified Seldinger technique was used to advance a 5-Trinidadian sheath in the right femoral artery and a 7-Trinidadian sheath in the right femoral vein. We used a 7-Trinidadian Terral-Davi catheter to carry out right heart catheterization and to measure oxygen levels in the various right heart chambers. The wind turbine technician, who was performing the oxygen saturation measurement instead performed pO2 measurements. She was not able to perform oxygen saturation measurements. Oxygen saturation measurement was only taken in the ascending aorta. All the other readings are those of pO2 in the various right heart chambers and also in the ascending aorta. The Terral-Davi catheter was removed after completion of the right heart catheterization and measurement of pressures. We then used a pigtail catheter. We tried to cross the valve, but were not able to do so. We did not make prolonged attempts because we have a good estimate of aortic valve area and ventricular function from echocardiography. We used a pigtail catheter for aortic root angiography and it was then removed. We used 5-Trinidadian JL4 catheter for left coronary angiography and 5-Trinidadian JR4 catheter was used for right coronary angiography. The catheters were removed and angiography of the right femoral artery was carried out through the sheath. Mynx was used to achieve hemostasis of the arterial site and manual pressure was used to achieve hemostasis of the venous site after sheath removal. The patient tolerated the procedure well. HEMODYNAMICS: Pulmonary artery pressure was 30/10 with a mean of 17 mmHg. Mean pulmonary wedge pressure was 7 mmHg. Right atrial mean pressure was 4 mmHg. Cardiac output by thermodilution was 2.87. Cardiac index by thermodilution was 1.78. PO2 in pulmonary artery was 48, in the right ventricle 46, in the right atrium 46, and in the ascending aorta 104. CORONARY ANGIOGRAPHY: Left main coronary artery was free of significant disease. Left anterior descending and left circumflex arteries are free of significant disease. Right coronary artery is dominant and free of significant disease. AORTIC ROOT ANGIOGRAPHY: No significant ascending aortic aneurysm or dissection. Aortic root angiography showed calcification and diminished excursion of aortic valve leaflets and mild to mod aortic regurgitation CONCLUSIONS: 1. No significant coronary artery disease. 2. Normal right heart pressures without evidence of intracardiac shunt. 3. Aortic root angiography showed calcification and diminished excursion of aortic valve leaflets and mild to mod aortic regurgitation 4. Echocardiography of 08/2019 has previously determined an ejection fraction of 55% to 65% and aortic valve area of 0.6 squared cm and a mean gradient across the aortic valve of 44 mmHg. RECOMMENDATIONS: Based on the results of the study and echocardiography, we are referring for consideration of aortic valve replacement. Job ID: [id number] DocumentID: [id number] Dictated Date: 12/27/2019 09:53:19 Electrode Turner And Finisher Date: 12/27/2019 10:21:14 Dictated By: LAYLA ELLISON MD, MA, FACP, FACC, MTDD
[2019-12-27] MEDS: NS IV 1000 ML 1,000 ML IV SCH ×2 (10:25→12:04)
== END 2019-12-27 14:55 | disposition home or self-care (01) ==
LOC: CATH 08:00 → SDC 09:59 → CATH 14:55
PROVIDERS: ATTEND Internal Medicine Cardiovascular Disease
DX: I35.2 Nonrheumatic aortic (valve) stenosis with insufficiency (principal); I70.213 Atherosclerosis of native arteries of extremities with intermittent claudication, bilateral legs; M51.36 Other intervertebral disc degeneration, lumbar region; K44.9 Diaphragmatic hernia without obstruction or gangrene; G47.10 Hypersomnia, unspecified; R09.02 Hypoxemia; G47.33 Obstructive sleep apnea (adult) (pediatric); M47.816 Spondylosis without myelopathy or radiculopathy, lumbar region; M48.061 Spinal stenosis, lumbar region without neurogenic claudication; I65.23 Occlusion and stenosis of bilateral carotid arteries; Z79.899 Other long term (current) drug therapy; Z96.641 Presence of right artificial hip joint; Z83.3 Family history of diabetes mellitus; Z82.49 Family history of ischemic heart disease and other diseases of the circulatory system
CPT/HCPCS: 80053; 80061; 85027; 85610; 85730; 87081; 93456; 93567; C1760; C1894 ×2; 36415

== ENCOUNTER 2020-01-01 21:23 | Emergency (ER) | payer MEDICARE ==
[~2020-01-01] VITALS: Ht 160 cm; Wt 60.7 kg
[~2020-01-01 21:23] MED LIST changes: -HEParin (CATH LAB) 2,000 ML IV ONE; -LIDOCAINE 1% INJ 20 ML 20 ML VIAL ONE; -NS IV 1000 ML 1,000 ML IV SCH; -NS IV 1000 ML 1,000 ML ONE
[2020-01-01 21:49] LABS: BASOPHILS % (AUTO) 1 % (0-10); EOSINOPHILS # (AUTO) 0.1 10^3/uL (0.0-0.3); EOSINOPHILS % (AUTO) 2 % (0-10); HEMATOCRIT 35 % (35-52); HEMOGLOBIN 11.2 g/dL (11.5-16.0); LYMPHOCYTES # (AUTO) 2.8 10^3/uL (1.0-4.0); LYMPHOCYTES % (AUTO) 45 % (12-44); MEAN CORPUSCULAR HEMOGLOBIN 32 pg (25-34); MEAN CORPUSCULAR HGB CONC 32 g/dL (32-36); MEAN CORPUSCULAR VOLUME 100 fL (80-99); MEAN PLATELET VOLUME 10.4 fL (9.0-12.2); MONOCYTES # (AUTO) 0.5 10^3/uL (0.0-1.0); MONOCYTES % (AUTO) 8 % (0-12); NEUTROPHILS # (AUTO) 2.8 10^3/uL (1.8-7.8); NEUTROPHILS % (AUTO) 45 % (42-75); PLATELET COUNT 151 10^3/uL (130-400); WHITE BLOOD COUNT 6.2 10^3/uL (4.3-11.0)
--- NOTE | 2020-01-01 21:50 | ED Lower Extremity ---
General Chief Complaint: Lower Extremity Stated Complaint: POST HEART CATH/R LEG SWELLING/KNOT, NAUSEA Source: patient, old records History of Present Illness Date Seen by Provider: Jan 01, 2020 Time Seen by Provider: 21:27 Initial Comments PT ARRIVES VIA POV FROM HOME PT HAD CARDIAC CATH ON 12/27/[address] ELLISON FOR AORTIC STENOSIS/EVALUATION FOR NEED FOR VALVE REPLACEMENT. HAS HAD A KNOT IN RIGHT GROIN AND BRUISING AND SWELLING TO GROIN AND THIGH SINCE SURGERY STATES TODAY, THE BRUISING HAS GONE DOWN FURTHER ON HER THIGH, AND THINKS HER THIGH MIGHT BE A LITTLE BIT MORE SWOLLEN AND THINKS THE KNOT MIGHT BE A LITTLE BIT BIGGER, "GOT SCARED" AND CAME TO ER NO SIGNIFICANT PAIN, ONLY SLIGHTLY SORE TO THE AREA. NO CHEST PAIN OR SHORTNESS OF BREATH NO PALPITATIONS NO FEVER/SWEATS/CHILLS NO PARESTHESIAS OR MOTOR DEFICITS PT IS ON XARELTO AND HAS TAKEN HER DOSE TODAY HAS AN APPOINTMENT WITH DR. ELLISON IN 1 WEEK. Allergies and Home Medications Allergies Coded Allergies: No Known Drug Allergies (Unverified , 02/04/17) Home Medications Omeprazole 20 Mg Capsule.dr, 20 MG PO BID, (Reported) Rivaroxaban 20 Mg Tablet, 20 MG PO DAILY, (Reported) Patient Home Medication List Home Medication List Reviewed: Yes Review of Systems Constitutional: no symptoms reported Respiratory: no symptoms reported Cardiovascular: see HPI Gastrointestinal: no symptoms reported Genitourinary: no symptoms reported Musculoskeletal: see HPI Skin: see HPI Psychiatric/Neurological: No Symptoms Reported Past Shtcdgr-Uxjemq-Cpypip Hx Past Med/Social Hx: Reviewed and Corrections made Patient Social History Alcohol Use: Denies Use Recreational Drug Use: No Smoking Status: Never a Smoker Recent Foreign Travel: No Contact w/Someone Who Travel: No Recent Hopitalizations: No Immunizations Up To Date PED Vaccines UTD: Yes Date of Pneumonia Vaccine: Feb 25, 2019 Date of Influenza Vaccine: Dec 07, 2019 Seasonal Allergies Seasonal Allergies: No Past Medical History Surgeries: Yes (SEE BELOW) Abdominal, Cardiac, Ear Surgery, Gallbladder, Joint Replacement, Orthopedic Respiratory: Yes (MASSIVE BILAT SADDLE EMBOLI/PE 04/2017-ON VENT/NOW HOME O2 AT HS) Pneumonia, Pulmonary Embolism, Sleep Apnea Currently Using CPAP: No Currently Using BIPAP: Yes Cardiac: Yes (AORTIC STENOSIS - dx 2012;CAROTID DISEASE;) Chronic Edema/Swelling, Peripheral Vascular, Valvular Heart Disease Neurological: Yes (RESTLESS LEG) 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 Disorders: No Female 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 Disorders: Denies 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 Sexually Transmitted Disease: No HIV/AIDS: No Genitourinary: No Gastrointestinal: Yes Abdominal Hernia, Gastroesophageal Reflux, Hiatal Hernia, Irritable Bowel Musculoskeletal: Yes (RIGHT HIP REPLACEMENT) Arthritis, Chronic Back Pain Endocrine: No HEENT: Yes (RT COCHLEAR IMPLANT/HEARING AID LEFT) Cataract 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, Bilateral Hearing Aide Cancer: No Psychosocial: Yes Sleep Difficulties Integumentary: No Blood Disorders: No Adverse Reaction/Blood Tranf: No Family Medical History Diabetes mellitus 19 FATHER 19 MOTHER FH: heart disease 19 MOTHER FH: muscular dystrophy G8 BROTHER (Friedreich's Ataxia) Hypertension Myocardial infarction 19 MOTHER No Pertinent Family Hx PAST SURGICAL HISTORY: -RIGHT COCHLEAR IMPLANT -HERNIA REPAIR -CHOLECYSTECTOMY -EGD/COLONOSCOPY -LUMBAR EPIDURAL STEROID INJECTIONS -RIGHT HIP REPLACEMENT 02/05/2017 -CARDIAC CATH 2012-NO SIGNFICANT CAD, NO INTERVENTION -CARDIAC CATH 12/27/2019--NO SIGNFICANT CAD. AORTIC STENOSIS/NEED FOR VALVE REPLACEMENT; NO INTERVENTION. EF 55-65%. DONE BY DR. ELLISON Physical Exam Vital Signs Vital Signs - First Documented 01/01/20 21:26 Temp 36.6 Pulse 107 Resp 18 B/P (MAP) 152/87 (108) Pulse Ox 98 O2 Delivery Room Air Capillary Refill : Height, Weight, BMI Height: 5'3.00" Weight: 174lbs. 12.8oz. 79.377078ce; 54.36 BMI Method:Stated General Appearance: WD/WN, no apparent distress, other (WALKS WITHOUT DIFFICULTY) Cardiovascular: normal peripheral pulses, regular rate, rhythm, no murmur Respiratory: normal breath sounds, no respiratory distress, no accessory muscle use Gastrointestinal: non tender, soft Hips: right hip normal range of motion Legs: right leg normal range of motion, right leg ecchymosis, right leg swelling, right leg other (RIGHT GROIN WITH 1 X 3 CM SLIGHLTY FIRM NODULE, NON- TENDER. RIGHT ANTERIOR AND MEDIAL THIGH WITH SIGNIFICANT OLDER-APPEARING ECCHYMOSIS, EXTENDING DOWN TO POSTERIOR/MEDIAL ASPECT OF RIGHT KNEE. VERY MILD TENDERNESS PROXIMALLY. MILD SWELLING OF RIGHT THIGH . ) Knees: right knee normal range of motion Neurologic/Tendon: normal sensation, normal motor functions, normal tendon functions Neurologic/Psychiatric: manager vehicle II-XII nml as tested, no motor/sensory deficits, alert, normal mood/affect, oriented x 3 Skin: normal color, warm/dry, ecchymosis Progress/Results/Core Measures Results/Orders Lab Results Laboratory Tests Test 01/01/20 21:43 Range/Units White Blood Count 6.2 4.3-11.0 10^3/uL Red Blood Count 3.51 L 3.80-5.11 10^6/uL Hemoglobin 11.2 L 11.5-16.0 g/dL Hematocrit 35 35-52 % Mean Corpuscular Volume 100 H 80-99 fL Mean Corpuscular Hemoglobin 32 25-34 pg Mean Corpuscular Hemoglobin Concent 32 32-36 g/dL Red Cell Distribution Width 13.2 10.0-14.5 % Platelet Count 151 130-400 10^3/uL Mean Platelet Volume 10.4 9.0-12.2 fL Immature Granulocyte % (Auto) 0 % Neutrophils (%) (Auto) 45 42-75 % Lymphocytes (%) (Auto) 45 H 12-44 % Monocytes (%) (Auto) 8 0-12 % Eosinophils (%) (Auto) 2 0-10 % Basophils (%) (Auto) 1 0-10 % Neutrophils # (Auto) 2.8 1.8-7.8 10^3/uL Lymphocytes # (Auto) 2.8 1.0-4.0 10^3/uL Monocytes # (Auto) 0.5 0.0-1.0 10^3/uL Eosinophils # (Auto) 0.1 0.0-0.3 10^3/uL Basophils # (Auto) 0.0 0.0-0.1 10^3/uL Immature Granulocyte # (Auto) 0.0 0.0-0.1 10^3/uL Prothrombin Time 15.9 H 12.2-14.7 SEC INR Comment 1.2 0.8-1.4 Activated Partial Thromboplast Time 30 24-35 SEC Sodium Level 140 135-145 MMOL/L Potassium Level 3.4 L 3.6-5.0 MMOL/L Chloride Level 104 98-107 MMOL/L Carbon Dioxide Level 22 21-32 MMOL/L Anion Gap 14 5-14 MMOL/L Blood Urea Nitrogen 16 7-18 MG/DL Creatinine 0.82 0.60-1.30 MG/DL Estimat Glomerular Filtration Rate > 60 BUN/Creatinine Ratio 20 Glucose Level 158 H 70-105 MG/DL Calcium Level 9.0 8.5-10.1 MG/DL My Orders Orders - GAURANG BALL DO Basic Metabolic Panel (01/01/20 21:28) Cbc With Automated Diff (01/01/20 21:28) Protime With Inr (01/01/20 21:28) Partial Thromboplastin Time (01/01/20 21:28) Vital Signs/I&O 01/01/20 01/01/20 21:26 22:33 Temp 36.6 Pulse 107 77 Resp 18 18 B/P (MAP) 152/87 (108) 119/69 Pulse Ox 98 95 O2 Delivery Room Air Room Air Progress Progress Note : Progress Note VITALS STABLE NO HYPOXIA NO TACHYCARDIA OR TACHYPNEA OR DYSPNEA NO CHEST PAIN NO ULTRASOUND AVAILABLE HERE AT THIS TIME. WILL ORDER OUTPATIENT ULTRASOUND FOR TOMORROW AND HAVE PT FOLLOW UP WITH DR. ELLISON TOMORROW Departure Impression Primary Impression: POST CARDIAC CATH SWELLING AND BRUISING RIGHT GROIN Additional Impression: XARELTO THERAPY Disposition: HOME, SELF-CARE Condition: Stable Departure-Patient Inst. Referrals: NO,LOCAL PHYSICIAN (PCP) Primary Care Physician SWATI MOSHER (Family) Primary Care Physician LAYLA ELLISON MD FACP FAC CCDS Patient Instructions: Bleeding After Surgery, Cardiac Catheterization (DC) Add. Discharge Instructions: CONTINUE YOUR MEDICATIONS PRESCRIBED CALL FIRST THING IN THE MORNING TO SCHEDULE OUTPATIENT ULTRASOUND OF YOUR LEG FOLLOW UP WITH DR. ELLISON TOMORROW AFTER YOUR ULTRASOUND--CALL IN THE MORNING TO SCHEDULE APPOINTMENT. All discharge instructions reviewed with patient and/or family. Voiced understanding. GAURANG BALL DO Jan 01, 2020 21:50
--- NOTE | 2020-01-01 21:55 | NUR ---
Note cristina in EDM - 01/01/20 at 2234 by [id number] Patient assisted to bathroom for UA. Pt awake and alert. She states her nausea is improved.
[2020-01-01 22:00] LABS: CHLORIDE 104 MMOL/L (98-107); POTASSIUM 3.4 MMOL/L (3.6-5.0); SODIUM 140 MMOL/L (135-145)
[2020-01-01 22:01] LABS: INR 1.2 (0.8-1.4); PROTHROMBIN TIME PATIENT 15.9 SEC (12.2-14.7)
[2020-01-01 22:02] LABS: GLUCOSE 158 MG/DL (70-105)
[2020-01-01 22:04] LABS: CARBON DIOXIDE 22 MMOL/L (21-32)
[2020-01-01 22:06] LABS: CREATININE SERUM 0.82 MG/DL (0.60-1.30); GFR ESTIMATED > 60
[2020-01-01 22:07] LABS: BUN/CREATININE RATIO 20
[2020-01-01 22:33] VITALS: BP 119/69
--- NOTE | 2020-01-01 22:34 | NUR ---
Pt given outpatient order for Ultrasound of right leg. Pt given verbal and written instructions to call tomorrow morning to schedule an appointment with ultrasound tomorrow and then to schedule an appointment tomorrow with Dr aguirre after the ultrasound. Pt verbalizes understanding.
== END 2020-01-01 22:36 | disposition home or self-care (01) ==
LOC: EDUNIT# 21:23 → ER 21:24
DX: I97.630 Postprocedural hematoma of a circulatory system organ or structure following a cardiac catheterization (principal); S80.11XA Contusion of right lower leg, initial encounter; K21.9 Gastro-esophageal reflux disease without esophagitis; Z82.49 Family history of ischemic heart disease and other diseases of the circulatory system; Z83.3 Family history of diabetes mellitus; Z86.711 Personal history of pulmonary embolism; Z95.9 Presence of cardiac and vascular implant and graft, unspecified; Z79.01 Long term (current) use of anticoagulants; X58.XXXA Exposure to other specified factors, initial encounter
CPT/HCPCS: 36415; 80048; 85025; 85610; 85730; 99282

== ENCOUNTER → 2020-01-02 | Outpatient (CLI) | payer MEDICARE ==
--- NOTE | 2020-01-02 13:03 | Diagnostic Imaging Report ---
PROCEDURE: US right lower extremity venous. TECHNIQUE: Multiple Real-time grayscale images were obtained over the right lower extremity in various projections. Additional spectral analysis and color Doppler duplex images were also obtained. INDICATION: Pain, bruising. COMPARISON: 04/18/2017. FINDINGS: Normal flow, compression, and augmentation within the visualized deep venous structures of the right lower extremity. IMPRESSION: No evidence of deep venous thrombosis within the right lower extremity. Dictated by: Dictated on workstation # [id number]
--- NOTE | 2020-01-02 13:08 | Diagnostic Imaging Report ---
INDICATION: Swelling, pain, bruising, post cardiac catheterization. COMPARISON: Venous sonographic imaging from the same date. TECHNIQUE: A right lower extremity arterial Duplex ultrasound was performed on 01/02/2020. FINDINGS: Biphasic waveforms are identified within the right common femoral artery extending into the right superficial femoral artery and right popliteal artery; however, monophasic waveforms are noted within the right profunda femoris artery. A rounded structure measuring 1.3 x 1.1 cm is seen arising off the anterior aspect of the right superficial femoral artery proximally. This demonstrates internal blood flow with a yin-amor to and fro appearance. Immediately overlying this is a complex focal fluid collection measuring 5.0 x 2.2 x 3.4 cm. Biphasic waveforms within the large arterial structures of the right calf. 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 A 5 cm hematoma is noted within the right groin region. Stenosis suggested involving the right profunda femoris artery. Dictated by: Dictated on workstation # [id number]
== END ==
LOC: RAD 11:21
PROVIDERS: ATTEND Emergency Medicine
DX: I97.630 Postprocedural hematoma of a circulatory system organ or structure following a cardiac catheterization (principal); I72.4 Aneurysm of artery of lower extremity
CPT/HCPCS: 93926

== ENCOUNTER → 2020-01-04 | Outpatient (CLI) | payer MEDICARE | LOC: LABNPT 05:24 | PROVIDERS: ATTEND Nurse Practitioner Family | DX: Z53.9 Procedure and treatment not carried out, unspecified reason (principal) ==

== ENCOUNTER → 2020-01-16 | Outpatient (CLI) | payer MEDICARE | LOC: LABNPT 08:43 | PROVIDERS: ATTEND Internal Medicine Critical Care Medicine | DX: Z20.828 Contact with and (suspected) exposure to other viral communicable diseases (principal) | CPT/HCPCS: 87635 ==

== ENCOUNTER 2020-01-18 19:36 | Outpatient (CLI) | payer MEDICARE | END 2020-01-19 07:30 | disposition home or self-care (01) | LOC: SLEEP 19:36 | PROVIDERS: ATTEND Nurse Practitioner Family | DX: G47.33 Obstructive sleep apnea (adult) (pediatric) (principal); G47.31 Primary central sleep apnea | CPT/HCPCS: 95811 ==

== ENCOUNTER 2020-02-15 10:27 | Outpatient (RCR) | payer MEDICARE | END 2020-02-15 11:15 | disposition home or self-care (01) | PROVIDERS: ATTEND Physician Assistant | DX: M70.61 Trochanteric bursitis, right hip (principal); Z20.828 Contact with and (suspected) exposure to other viral communicable diseases ==

== ENCOUNTER 2020-07-18 12:14 | Inpatient (IN) | payer MEDICARE ==
[~2020-07-18] VITALS: Ht 160 cm; Wt 57.0 kg
[2020-07-18] MEDS ORDERED: ALPRAZolam 0.25 MG (XANAX) TAB PO PRN (12:45)
[2020-07-18] MEDS ORDERED: LACTULOSE SYRUP 10GM/15ML (ENULOSE) 30ML UDC PO PRN (12:45)
[2020-07-18] MEDS ORDERED: guaiFENesin/CODEINE (ROBITUSSIN AC) 10ML UDC PO PRN (12:45)
[2020-07-18] MEDS ORDERED: BISACODYL 10 MG SUPP (DULCOLAX) PR PRN (12:45)
[2020-07-18] MEDS ORDERED: diphenhydrAMINE 25 MG TAB (BENADRYL) PO PRN (12:45)
[2020-07-18] MEDS ORDERED: DOCUSATE SODIUM 100 MG (COLACE) CAP PO PRN (12:45)
[2020-07-18] MEDS ORDERED: CALCIUM CARBONATE 500 MG (TUMS) TAB.CHEW PO PRN (12:45)
[2020-07-18] MEDS ORDERED: ONDANSETRON 4 MG (ZOFRAN) ORAL DISSOLVE TAB PO PRN (12:45)
[2020-07-18] MEDS ORDERED: LOPERAMIDE 2 MG (IMODIUM) TABLET PO PRN (12:45)
[2020-07-18] MEDS ORDERED: FLEET ENEMA ADULT 1 EA BTL PR PRN (12:45)
[2020-07-18] MEDS ORDERED: ACET325C7 PO (13:26)
[2020-07-18] MEDS ORDERED: CALC-823 PO (13:26)
[2020-07-18] MEDS ORDERED: MULT-1136 PO (13:26)
[2020-07-18] MEDS ORDERED: ASPI-1238 PO (13:26)
[2020-07-18 15:30] VITALS: BP 130/78
--- NOTE | 2020-07-18 16:02 | Physical Therapy Evaluation ---
PT Evaluation-General Medical Diagnosis Admission Date Jul 18, 2020 at 15:00 Medical Diagnosis: CVA Onset Date: July 12, 2020 Therapy Diagnosis Therapy Diagnosis: impaired mobility, balance, strength Height/Weight Height (Feet): 5 Height (Inches): 3.00 Weight (Pounds): 174 Weight (Ounces): 12.8 Referral Physician: Fely Mcintosh DO Reason for Referral: Evaluation/Treatment Medical History Pertinent Medical History: Arthritis, GERD Reviewed History: Yes Social History Home: Multilevel Current Living Status: Alone Entry Into Home: Stairs With Railing PT Steps Into Home: 2 Patient has more steps to enter from the front (4-5) but she says she always uses the back which has 2 steps. Prior Prior Level of Function SCALE: Activities may be completed with or without assistive devices. 1-Cfngoznwts-ixfqjac completes the activity by him/herself with no assistance from a helper. 5-Set-up or Clean-up Assistance-helper sets up or cleans up; patient completes activity. [place] assists only prior to or following the activity. 4-Supervision or Touching Assistance-helper provides verbal cues and/or touching/steadying and/or contact guard assistance as patient completes activity. Assistance may be provided throughout the activity or intermittently. 3-Partial/Moderate Assistance-helper does LESS THAN HALF the effort. [place] lifts, holds or supports trunk or limbs, but provides less than half the effort. 2-Substantial/Maximal Assistance-helper does MORE THAN HALF the effort. [place] lifts or holds trunk or limbs and provides more than half the effort. 6-Rycmyycof-qflyfr does ALL the effort. Patient does none of the effort to complete the activity. Or, the assistance of 2 or more helpers is required for the patient to complete the activity. If activity was not attempted, code reason: 7-Patient Refused. 9-Not Applicable-not attempted and the patient did not perform the activity before the current illness, exacerbation or injury. 10-Not Attempted due to Environmental Limitations-(lack of equipment, weather restraints, etc.). 88-Not Attempted due to Medical Conditions or Safety Concerns. Bed Mobility: 6 Transfers (B,C,W/C): 6 Gait: 6 Stairs: 6 Indoor Mobility (Ambulation): Independent Stairs: Independent PT Evaluation-Current Subjective Patient in car pre tx, just got to rehab from [place], [place]. Patient has no complaints of pain, agrees to PT. Will be co-treating with OT for part of tx due to poor patient mobility, strength, balance, poor safety awareness, coordinate UE and LE during activity, safety and reduce risk of falls. Pt/Family Goals to be independent at home Objective Patient Orientation: Person, Place, Situation ROM/Strength ROM Lower Extremities WNL Strength Lower Extremities LLE (hip flexion 4-/5, knee flexion 4+/5, knee extension 4+/5, dorsiflexion 3+/5), RLE (hip flexion 4-/5, knee flexion 5/5, knee extension 5/5, dorsiflexion 3+/5) Neuromuscular (Tone, Coordination, Reflexes) Patient has impaired tracking on the left side, impaired peripheral vision on the left side Sensory Hearing: Impaired Sensation Right Lower Extremit: Intact Sensation Left Lower Extremity: Intact Transfers Roll Left & Right (QC): 6 Sit to Lying (QC): 6 Lying to Sitting/Side of Bed(Q: 6 Sit to Stand (QC): 4 Chair/Umu-bq-Uooma Xfer(QC): 4 Toilet Transfer (QC): 4 Car Transfer (QC): 4 Patient performs bed mobility and supine <-> sit with independence, sit <-> stand and transfers with CGA, car transfer CGA. Patient needs many cues for safety and positioning, she is impulsive and that combined with her visual deficits can get into unsafe situations easily. Gait Does the Patient Walk?: Yes Mode of Locomotion: Walk Anticipated Mode of Locomotion: Walk Walk 10 feet (QC): 4 Walk 50 ft with 2 Turns(QC): 4 Walk 150 ft (QC): 4 Walking 10ft/uneven surface-QC: 4 Distance: 300', 150' Gait Assistive Device: FWW Comments/Gait Description Patient can ambulate 300' with a rolling walker with CGA (including 50' with at least 2 turns of 90 degrees and 10' over an uneven surface). Patient would be SBA with ambulation but she needs CGA when turning and going around obstacles du e to her visual deficits and impulsivity. Wheelchair Training Does the Pt Use a Wheelchair?: No Wheel 50 ft with 2 turns (QC): 9 Wheel 150 ft (QC): 9 Stairs #of Steps: 4 1 Step (curb) (QC): 4 4 Steps (QC): 4 12 Steps (QC): 88 Patient can go up and down 4 steps using 2 handrails with CGA, cues for safety Balance Sitting Static: Normal Sitting Dynamic: Normal Standing Static: Good Standing Dynamic: Fair Picking up an Object (QC): 10 Treatment PT performed bed mobility and transfers, ambulation, stair training, balance and positioning during dressing and toileting, OT performed dressing, toileting, ADL's, UE positioning and safety during activity. Assessment/Needs Patient has fair mobility and strength but her visual deficits combined with impulsiveness makes her have poor safety awareness. Rehab Potential: Fair PT Short Term Goals Short Term Goals Time Frame: Jul 25, 2020 Roll Left & Right: 6 Sit to lyin Lying to sitting on side of be: 6 Sit to stand: 5 Chair/hzp-gw-odshe transfer: 5 Walk 10 feet: 5 Walk 50 feet with two turns: 5 Walk 150 feet: 5 PT Alf Goals Hydraulic Strainer Operator Goals PT Hydraulic Strainer Operator Goals Time Frame: Aug 08, 2020 Roll Left & Right (QC): 6 Sit to Lying (QC): 6 Lying-Sitting on Side/Bed(QC): 6 Sit to Stand (QC): 6 Chair/Vlc-kj-Sqzja Xfer(QC): 6 Toilet Transfer (QC): 6 Car Transfer (QC): 6 Does the Patient Walk: Yes Walk 10 feet (QC): 6 Walk 50ft with 2 Turns (QC): 6 Walk 150 ft (QC): 6 Walking 10ft on Uneven Surface: 6 1 Step (curb) (QC): 5 4 Steps (QC): 5 12 Steps (QC): 5 Picking up an Object (QC): 5 Wheel 50 feet with 2 turns (QC: 9 Wheel 150 feet: 9 PT Plan Problem List Problem List: Activity Tolerance, Functional Strength, Safety, Balance, Gait, Transfer, Bed Mobility, ROM Treatment/Plan Treatment Plan: Continue Plan of Care Treatment Plan: Bed Mobility, Education, Functional Activity Priya, Functional Strength, Group Therapy, Gait, Safety, Therapeutic Exercise, Transfers Treatment Duration: Aug 08, 2020 Frequency: At least 5 of 7 days/Wk (IRF) Estimated Hrs Per Day: 1.5 hours per day Patient and/or Family Agrees t: Yes Safety Risks/Education Patient Education: Gait Training, Transfer Techniques, Steps, Correct Positioning, Safety Issues Teaching Recipient: Patient Teaching Methods: Demonstration, Discussion Response to Teaching: Reinforcement Needed Discharge Recommendations Plan Patient will perform bed mobility and transfer training, balance and endurance training, functional strengthening, stair training, gait training, and education, to improve functional mobility and independence at home. Therapy Discharge Recommendati: Scheduled Assistance, Home & Family, Post Acute PT Time/GCodes Time In: 1500 Time Out: 1555 Total Billed Treatment Time: 45 Total Billed Treatment 1 visit EVM 10' FA 35' PT eval from [id number], OT eval from [id number], co-treat from [id number] ANNAMARIA GARCIA PT Jul 18, 2020 16:02
--- NOTE | 2020-07-18 16:43 | Physical Therapy Daily Note ---
PT Daily Note-Current Subjective Agreeable to PT. No complaints. Post treatment, pt does voice feeling tired. Mental Status Patient Orientation: Person, Place, Time, Situation Transfers SCALE: Activities may be completed with or without assistive devices. 9-Amhjqqfifq-rdfycsm completes the activity by him/herself with no assistance from a helper. 5-Set-up or Clean-up Assistance-helper sets up or cleans up; patient completes activity. [place] assists only prior to or following the activity. 4-Supervision or Touching Assistance-helper provides verbal cues and/or touching/steadying and/or contact guard assistance as patient completes activity. Assistance may be provided throughout the activity or intermittently. 3-Partial/Moderate Assistance-helper does LESS THAN HALF the effort. [place] lifts, holds or supports trunk or limbs, but provides less than half the effort. 2-Substantial/Maximal Assistance-helper does MORE THAN HALF the effort. [place] lifts or holds trunk or limbs and provides more than half the effort. 1-Ggorxjkya-etchuy does ALL the effort. Patient does none of the effort to complete the activity. Or, the assistance of 2 or more helpers is required for the patient to complete the activity. If activity was not attempted, code reason: 7-Patient Refused. 9-Not Applicable-not attempted and the patient did not perform the activity before the current illness, exacerbation or injury. 10-Not Attempted due to Environmental Limitations-(lack of equipment, weather restraints, etc.). 88-Not Attempted due to Medical Conditions or Safety Concerns. Sit to Stand (QC): 4 (skilled cues for sequencing. ) Chair/Kkp-ep-Avsej Xfer(QC): 4 (skilled cues to attend to the left side. ) Gait Training Walk 150 ft (QC): 4 (200 ft x 4 with FWW with CGA with skilled cues for attention to the left and safety with the walker. ) Balance Picking up an Object (QC): 3 Treatments Co treat with OT due to the need for the skill of 2 clinicians to safely and effectively focus on functional transfers, balance, safety and gross mobility. Mulitple sit to stand and transfers made, functional gait with need to attend to the left, toileting tasks with changing of clothing and pericare. OT addressed UE use and placement as well as ADL skills as PT addressed gross mobility of transfers, gait and balance. Pt up in chair with family present post treatment. Assessment Current Status: Good Progress Noted left neglect with some decline in safety awareness and/or insight. Follows cues well and is cooperative. PT Short Term Goals Short Term Goals Time Frame: Jul 25, 2020 Roll Left & Right: 6 Sit to lyin Lying to sitting on side of be: 6 Sit to stand: 5 Chair/ozg-id-acwdu transfer: 5 Walk 10 feet: 5 Walk 50 feet with two turns: 5 Walk 150 feet: 5 PT Electric Meter Repairer Helper Goals Electric Meter Repairer Helper Goals PT Electric Meter Repairer Helper Goals Time Frame: Aug 08, 2020 Roll Left & Right (QC): 6 Sit to Lying (QC): 6 Lying-Sitting on Side/Bed(QC): 6 Sit to Stand (QC): 6 Chair/Lqk-nc-Sdcwi Xfer(QC): 6 Toilet Transfer (QC): 6 Car Transfer (QC): 6 Does the Patient Walk: Yes Walk 10 feet (QC): 6 Walk 50ft with 2 Turns (QC): 6 Walk 150 ft (QC): 6 Walking 10ft on Uneven Surface: 6 1 Step (curb) (QC): 5 4 Steps (QC): 5 12 Steps (QC): 5 Picking up an Object (QC): 5 Wheel 50 feet with 2 turns (QC: 9 Wheel 150 feet: 9 PT Plan Problem List Problem List: Activity Tolerance, Functional Strength, Safety, Balance, Gait, Transfer, Bed Mobility Treatment/Plan Treatment Plan: Continue Plan of Care Treatment Plan: Bed Mobility, Education, Functional Activity Priya, Functional Strength, Group Therapy, Gait, Safety, Therapeutic Exercise, Transfers Treatment Duration: Aug 08, 2020 Frequency: At least 5 of 7 days/Wk (IRF) Estimated Hrs Per Day: 1.5 hours per day Patient and/or Family Agrees t: Yes Safety Risks/Education Patient Education: Safety Issues Teaching Recipient: Patient Teaching Methods: Discussion Response to Teaching: Reinforcement Needed Time/GCodes Time In: 1555 Time Out: 1640 Total Billed Treatment Time: 45 Total Billed Treatment visit FA 45 KEITH ALANIZ PT Jul 18, 2020 16:43
--- NOTE | 2020-07-18 16:46 | Occupational Therapy Eval ---
OT Evaluation-General/PLF Medical Diagnosis Admission Date Jul 18, 2020 at 15:00 Medical Diagnosis: CVA Onset Date: July 12, 2020 Therapy Diagnosis Therapy Diagnosis: Left sided weakness Height/Weight Height (Feet): 5 Height (Inches): 3.00 Weight (Pounds): 174 Weight (Ounces): 12.8 Weight Bear Status Weight Bearing Restriction: Weight Bearing/Tolerated Referral Physician: Fely Mcintosh DO Referral Reason: Activity Tolerance, Self Care, Evaluation/Treatment, Strengthening/ROM Medical History Pertinent Medical History: Arthritis, GERD Additional Medical History PNA, PE, Sleep apnea, aortic stenosis, carotid disease, chronic edema, PVD, VHD, RLS, ABD hernia, Right cochlear implant, hip replacement. 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 Not candidate TPA. Right gaze preference. Reviewed History: Yes Social History Home: Multilevel Current Living Status: Alone Entry Into Home: Stairs With Railing Steps Into Home: 5 Steps Inside Home: 17 (Can live on one level. ) ADL-Prior Level of Function SCALE: Activities may be completed with or without assistive devices. 2-Wdaexzyjql-ynmlbgr completes the activity by him/herself with no assistance from a helper. 5-Set-up or Clean-up Assistance-helper sets up or cleans up; patient completes activity. [place] assists only prior to or following the activity. 4-Supervision or Touching Assistance-helper provides verbal cues and/or touching/steadying and/or contact guard assistance as patient completes activity. Assistance may be provided throughout the activity or intermittently. 3-Partial/Moderate Assistance-helper does LESS THAN HALF the effort. [place] lifts, holds or supports trunk or limbs, but provides less than half the effort. 2-Substantial/Maximal Assistance-helper does MORE THAN HALF the effort. [place] lifts or holds trunk or limbs and provides more than half the effort. 5-Cicgikbmr-znvyud does ALL the effort. Patient does none of the effort to complete the activity. Or, the assistance of 2 or more helpers is required for the patient to complete the activity. If activity was not attempted, code reason: 7-Patient Refused. 9-Not Applicable-not attempted and the patient did not perform the activity before the current illness, exacerbation or injury. 10-Not Attempted due to Environmental Limitations-(lack of equipment, weather restraints, etc.). 88-Not Attempted due to Medical Conditions or Safety Concerns. ADL PLOF Comments Pt. states that she is typically independent with daily skills. Pt. does not use a walker. Self Care: Independent Functional Cognition: Independent DME/Equipment: Bath Chair, Grab Bars, Shower DME/Equipment Comments Pt. has walker, cane, life alert. Drive Self: Yes OT Current Status Subjective No pain reported. Mental Status/Objective Patient Orientation: Person, Place Current Glasses/Contacts: Yes Hand Dominance: Right Upper Extremity ROM WFL Upper Extremity Coordination Left impaired. Pt. able to complete fine motor tasks when given specific cues. However, has difficulty with activities that are not specific. Upper Extremity Sensation Intact Upper Extremity Strength Right- 4/5 Left- 3/5 ADL-Treatment Eating (QC): 88 Oral Hygiene (QC): 7 Shower/Bathe Self (QC): 88 Upper Body Dressing (QC): 3 (With clinical judgement.) Lower Body Dressing (QC): 3 (min assist in stance for balance.) On/Off Footwear (QC): 4 (SBA and cues for balance and donning correct shoe.) Toileting Hygiene (QC): 3 (Pt. incontinent twice in underwear and pants. Pt. able to doff with min assist over shoe. Requires cues to cleanse gil area effectively, as she will cleanse with toilet paper multiple times but not correct area.) Other Treatments Pt. seen for co-treatment with PT/OT due to need of skilled assessment x 2 clinicians s/p transfer from [place] PT assessed transfers, mobility, LE strength, endurance, while OT assessed ADL skills, vision, UE strength, and some cognitive effort. Pt. arrives by private vehicle. Daughters present and report pt. has to use restroom. Pt. somewhat impulsive with exiting vehicle. Requires min assist and unsafe with attempt to transfer to wheelchair. Noted pt. incontinent of urine. Taken to bathroom. Noted decreased overall coordination in left UE, and difficulty attending to left side. Pt. unaware of deficits. Changed into clean underwear and pants. Completed evaluation. Difficulty with following pen during visual testing with smooth pursuits to left side. Seems to demonstrate full visual field with verbalizations. Able to use left UE for fine motor task with purposeful movement with cues, but has difficulty maneuvering walker to not run into objects on left side. Pt. reports having to use bathroom again and is incontinent again. Does sit however, and st ill is able to urinate in toilet at well. Donned brief at this time. Transferred to reclining chair at end of treatment. All needs met. Nursing aware pt. up in chair. Education OT Patient Education: Correct positioning, Exercise program, Modified ADL techniques, Progress toward Goal/Update tx plan, Purpose of tx/functional activities, Reviewed precautions, Rehab process Teaching Recipient: Patient, Family Teaching Methods: Demonstration, Discussion Response to Teaching: Verbalize Understanding, Return Demonstration, Reinforcement Needed OT Short Term Goals Short Term Goals Time Frame: Jul 26, 2020 Eatin Oral hygiene: 5 Toileting hygiene: 4 Shower/bathe self: 4 Upper body dressin Lower body dressin Putting on/taking off footwear: 4 OT Lap Grinder Goals Lap Grinder Goals Time Frame: Aug 02, 2020 Eating (QC): 6 Oral Hygiene (QC): 6 Toileting Hygiene (QC): 6 Shower/Bathe Self (QC): 4 Upper Body Dressing (QC): 5 Lower Body Dressing (QC): 5 On/Off Footwear (QC): 6 Additional Goals: 1-Demonstrate ADL Tasks, 2-Verbalize Understanding, 3- ImproveStrength/Priya 1=Demonstrate adherence to instructed precautions during ADL tasks. 2=Patient will verbalize/demonstrate understanding of assistive devices/modifications for ADL. 3=Patient will improve strength/tolerance for activity to enable patient to perform ADL's. OT Education/Plan Problem List/Assessment Assessment: Decreased Activ Tolerance, Decreased Safety Aware, Decreased UE Strength, Dependent Transfers, Impaired Cognition, Impaired Coordination, Impaired I ADL's, Impaired Self-Care Skills, Visual-Perceptual Deficit Discharge Recommendations Plan/Recommendations: Continue POC Therapy Discharge Recommendati: Post Acute OT Treatment Plan/Plan of Care Treatment,Training & Education: Yes Patient would benefit from OT for education, treatment and training to promote independence in ADL's, mobility, safety and/or upper extremity function for ADL's. Plan of Care: ADL Retraining, Functional Mobility, UE Funct Exercise/Act Treatment Duration: Aug 02, 2020 Frequency: At least 5 of 7 days/Wk (IRF) Estimated Hrs Per Day: 1.5 hours per day Agreement: Yes Rehab Potential: Good Time/GCodes Start Time: 15:00 Stop Time: 16:40 Total Time Billed (hr/min): 90 Billed Treatment Time [id number] PT eval, no charge [id number] 1, EVM x 10minutes [id number] ADL x 30minutes, FA x [id number] with PT. Please see above note for designated roles. JOHN MARRERO OT Jul 18, 2020 16:46
[2020-07-18] MEDS ORDERED: NON-FORMULARY MEDICATION 1 EA EA (Acetaminophen (Tylenol) 650 MG) PO PRN (18:15)
[2020-07-18 20:30] VITALS: BP 146/81
[2020-07-18] MEDS: MELATONIN 3 MG TABLET PO PRN (20:56)
[2020-07-18] MEDS: DOCUSATE SODIUM 100 MG (COLACE) CAP PO SCH (20:56)
[2020-07-18] MEDS: SENNA W/DOCUSATE (SENOKOT S) TABLET PO SCH (20:56)
[2020-07-18] MEDS: ACETAMINOPHEN 325 MG TABLET PO PRN (21:00)
[2020-07-18] MEDS: polyethylene glycoL POWDER 17 GM (MIRALAX) PACK PO SCH (21:00)
--- NOTE | 2020-07-18 21:11 | PM&R Post Admission Assessment ---
PM&R HP Date of Visit: Jul 18, 2020 Time of Visit: 15:45 History of Present Illness CC: CVA HPI: This is an 84yoWF clinic pt of [facility] for the past 17 years who presents after a stroke following a TVAR procedure at [facility] for severe aortic stenosis. Pt did well after surgery but then started having neurological deficits requiring transport to neurosurgery at [facility] and is subsequently need in aggressive rehab in order to regain ambulatory function and cognitive function and ADL independence in order to return home to independent living. She has left sided weakness and impulsive movements. Peripheral gaze is affected also. -Will wait to restart Xarelto for 4 weeks r/t large nature of acute ischemic stroke and high risk for hemorrhagic conversion Plan to restart Xarelto on August [address] Head WO that shows no hemorrhage and stroke is stable Patient does not need ASA and Xarelto for stroke prevention, but will need cardiology input r/t TAVR requirements forcontinuing ASA - patient is to follow up with her mandate retail service merchandiser in 1 week [facility] DC note Ruth Zhang a 84 y.o.femalewho was admitted to [facility] on 07/12/2020nd found to have a principle diagnosis of Acute right MCA stroke. H&P The patient is a 84-year-old female who was transferred to [facility] on 07/12/2020 with signs and symptoms of acute stroke. She underwent a TAVRprocedure on 07/12/2020, and woke up following sedation with symptoms of right MCA stroke. She was found to have a right M1 occlusion and was taken for an endovascular procedure with TICI 3reperfusion. Although she was in the TPA window, the outside hospital determined that she was not a candidate for TPA before she was transported here. 07/12 This patient with a past history ofrecent TAVR (transaortic valve replacement)earlier today at [facility] (outside hospital).History is obtained from chart review and from patient's daughter over the phone. Reportedly patient was confused and was noted to have left-sided deficits with right gaze preference and a CTA head and neck and CT perfusion was done at outside hospital which showed right MCAocclusion with penumbra of 48 cc.Patient was transferred here to [facility] for further evaluation care and management. As per report patient was not given TPA at outside hospital.Patient was evaluated by neurologist (Dr. Cali) at OSH and No tpa as per him as per report. Refer to outside report for details.Dr. Rodriguez (neurologist) here hadspoken to outside hospital earlier and he had accepted the patient for admission and further management. Patient arrivedtonight during my shift.On initial assessment patient's NIH was 10 (see below in data for details). Dr. Chioma Sena (endovascular)requested repeat CTA head and neck and CT perfusion study as the previous done at OSH was few hours ago and Dr. Senawanted a new/repeat CTA H/N and CT perfusion study here. Our CTA/CTP study here showed a right distal M1 MCA occlusion with 10 cc core infarct and 102 cccorresponding penumbra.I discussed this with Dr. Sena (endovascular) and he recommends to proceed with IRfor thrombectomy for right MCAthrombus.I called patient's daughter over the phone and discussed with her regarding plan for proceeding with IR for thrombectomy for right MCA occlusion/thrombus.She understood and verbalized the plan and agreement with this plan. Patient has a right auditory cochlear implant. Otherwise unremarkable noncontrast CT head.No acute intracranial abnormality. Patient is sleepy and mildly lethargic at the time of my assessment. She opens eyes to voice and to noxious stimulus. Reportedly patient is on Xarelto as per patient's daughter due to history of PE in 2019. Daughter states that patient has been off of Xarelto since 07/06 (presumably due to undergoing TAVR today at OSH) Hospital Course 07/16 Pt is pleasantly confused Alert to self - thinks that we are in her home Stable for transfer out of ICU at this time CHAR PULLER recommending SNF, pending PT and OT 07/17 Pt remains pleasantly confused D/c planning underway Patient remains medically stable for D/C at this time 07/18 Pt is up in the chair having lunch - doing well Family at bedside Reviewed plans for d/c Patient has been accepted at SN[facility] in [facility] Follow up with PCP in 5 days FU with cardiology in 1 week FU with neurology in 2-3 months Ruth Sierar,84 y.o.-year-oldfemalepatient with: 1. Acute ischemic stroke Etiology: s/p TAVR - thrombus Localization: Right M1 occlusion Risk factors: TAVR procedure - Hx DVT &PE requiring chronic AC, but off AC for TAVR - CHF - Manifestation: Left sided weakness - extinction Acute intervention: not a tPA candidate r/t post TAVR - Thrombectomy with TICI 3 Prior to admission medications: off of AC for TAVR - no asa - no statin [facility] MENTAL HEALTH SPECIALIST: 1 Stroke Workup: - CT head: right MCA ischemic stroke without hemorrhage - CTA head and neck: Right M1 occlusion without additional significant stenosis - TTE: EF 55-60% - no thrombus - Telemetry: NSR - A1C 6.1, LDL 88 Secondary Stroke Prevention: - Started on ASA 81 - Lipitor 40 -Will wait to restart Xarelto for 4 weeks r/t large nature of acute ischemic stroke and high risk for hemorrhagic conversion Plan to restart Xarelto on August [address] Head WO that shows no hemorrhage and stroke is stable Patient does not need ASA and Xarelto for stroke prevention, but will need cardiology input r/t TAVR requirements forcontinuing ASA - patient is to follow up with her mandate retail service merchandiser in 1 week - LDL Goal <70 - A1C Goal <7.0 - Reliability Manager BP Goal <130/80 - Lifestyle modifications including regular diet and Mediterranean diet Stroke Rehabilitation: - PT/OT/ST on board - Current diet: Dysphasia III soft textures with thin liquids - Disposition recommendations:SNF - [facility] in [facility] CT Head IMPRESSION: 1. Recent infarct in the right MCA territory involving the temporal lobe and likely inferior frontal lobe and insula. Assessment is somewhat limited by streak artifact. 2. Small amount of hemorrhage in the right frontal region. There is additional hyperdensity in the right basal ganglia which could represent blood products and/or contrast. CT Stroke 1. Occlusive thrombus in the distal right M1 segment and proximal M2 segment. There is a large ischemic penumbra within the right MCA territory. 2. Suspect a small infarct core within the anterior right temporal lobe. 3. No arterial stenosis within the neck. IR Arteriogram Head OPERATIVE FINDINGS: 1. At initiation of case complete occlusion of M1 segment of right middle cerebral artery with no antegrade flow. 2. At conclusion of case successful recanalization of right middle cerebral artery tree with reperfusion pattern consistent with TICI 3 pattern. Labs - reviewed Results for RUTH SIERRA ( ) as of 07/16/2020 17:09 Ref. Range 07/13/2020 01:01 CHOLESTEROL Latest Ref Range: <200 mg/dL 156 HDL Latest Ref Range: 40 - 59 mg/dL 60 (H) LDL CALCULATED Latest Ref Range: <100 mg/dL 88 NON-HDL CHOLESTEROL Latest Ref Range: <130 mg/dL 96 TRIGLYCERIDE Latest Ref Range: <150 mg/dL 42 Results for RUTH SIERRA ( ) as of 07/16/2020 17:09 Ref. 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 Weakness on left side of face Personal history of DVT (deep vein thrombosis) Moderate protein-calorie malnutrition History of transcatheter aortic valve replacement (TAVR) - 07/12/20 Chronic anticoagulation Valvular heart disease Cochlear implant in place Past Neodgwr-Ijltrs-Vcrqrx Hx Past Med/Social Hx: Reviewed Nursing Past Med/Soc Hx, Reviewed and Corrections made Patient Social History Marrital Status: Employed/Student: retired Alcohol Use: Denies Use Smoking Status: Never a Smoker Recent Hopitalizations: No Immunizations Up To Date Pediatric: Yes Date of Pneumonia Vaccine: Feb 25, 2019 Date of Influenza Vaccine: Dec 07, 2019 Seasonal Allergies Seasonal Allergies: No Past Medical History Surgeries: Abdominal, Cardiac (TVAR), Ear Surgery, Gallbladder, Joint Replacement, Orthopedic Currently Using CPAP: No Currently Using BIPAP: Yes Cardiac: Chronic Edema/Swelling, Peripheral Vascular, Valvular Heart Disease 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: No Sexually Transmitted Disease: No HIV/AIDS: No Female 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 Disorders: Denies Menopausal Gastrointestinal: Abdominal Hernia, Gastroesophageal Reflux, Hiatal Hernia, Irritable Bowel Musculoskeletal: Arthritis, Chronic Back Pain HEENT: Cataract 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, Bilateral Hearing Aide Psychosocial: Sleep Difficulties History of Blood Disorders: No Adverse Reaction to Blood Sandhu: No Family History Diabetes mellitus 19 FATHER 19 MOTHER FH: heart disease 19 MOTHER FH: muscular dystrophy G8 BROTHER (Friedreich's Ataxia) Hypertension Myocardial infarction 19 MOTHER No Pertinent Family Hx PAST SURGICAL HISTORY: -RIGHT COCHLEAR IMPLANT -HERNIA REPAIR -CHOLECYSTECTOMY -EGD/COLONOSCOPY -LUMBAR EPIDURAL STEROID INJECTIONS -RIGHT HIP REPLACEMENT 02/05/2017 -CARDIAC CATH 2013-NO SIGNFICANT CAD, NO INTERVENTION -CARDIAC CATH 12/27/2019--NO SIGNFICANT CAD. AORTIC STENOSIS/NEED FOR VALVE REPLACEMENT; NO INTERVENTION. EF 55-65%. DONE BY DR. ELLISON Prior Level of Function Bed Mobility: 6 Transfers: 6 Gait: 6 Stairs: 6 Indoor Mobility (Ambulation): Independent Stairs: Independent Self Care: Independent Functional Cognition: Independent Occupation: retired Drive Self: Yes Current Level of Fuctioning Roll Left to Right: 6 Sit to Lyin Lying to Sitting/Side of Bed: 6 Sit to Stand: 4 (skilled cues for sequencing. ) Chair/Lzk-sg-Qvtxh Xfer: 4 (skilled cues to attend to the left side. ) Car Transfer: 4 Does the Patient Walk: Yes Mode of Locomotion: Walk Anticipated Mode of Locomotion: Walk Walk 10 feet: 4 Walk 50 ft with 2 Turns: 4 Walk 150 ft: 4 (200 ft x 4 with FWW with CGA with skilled cues for attention to the left and safety with the walker. ) Walking 10ft on uneven surface: 4 Gait Assistive Device: FWW Does the Pt Use a Wheelchair: No Wheel 50 ft with 2 turns: 9 Wheel 150 ft: 9 #of Steps: 4 1 Step (curb): 4 4 Steps: 4 12 Steps: 88 Picking up an Object: 3 Eatin Oral Hygiene: 7 Shower/Bathe Self: 88 Upper Body Dressin (With clinical judgement.) Lower Body Dressin (min assist in stance for balance.) On/Off Footwear: 4 (SBA and cues for balance and donning correct shoe.) Toileting Hygiene: 3 (Pt. incontinent twice in underwear and pants. Pt. able to doff with min assist over shoe. Requires cues to cleanse gil area effectively, as she will cleanse with toilet paper multiple times but not correct area.) PM&R Allergy/Meds/Data Review Allergies Coded Allergies: No Known Drug Allergies (Unverified , 02/04/17) Home Medications Scheduled Aspirin (Aspirin EC), 81 MG PO DAILY, (Reported) Calcium Carbonate (Calcium), 500 MG PO DAILY, (Reported) Multivitamin (Multivitamin), 1 EACH PO DAILY, (Reported) Omeprazole (Omeprazole), 20 MG PO DAILY, (Reported) Scheduled PRN Acetaminophen (Tylenol), 650 MG PO Q4H PRN for PAIN-MILD (1-4), (Reported) Discontinued Medications Rivaroxaban (Xarelto Tablet), 20 MG PO DAILY, (Reported) Discontinued Reason: Duplicate Order Current Medications Current Medications Reviewed Review of Systems Constitutional: see HPI, malaise, weakness EENTM: vision loss Respiratory: no symptoms reported Cardiovascular: no symptoms reported Gastrointestinal: no symptoms reported Genitourinary: no symptoms reported Musculoskeletal: no symptoms reported Skin: no symptoms reported Psychiatric/Neurological: Anxiety, Depressed All Other Systems Reviewed Negative Unless Noted: Yes Physical Exam Physical Exam Vital Signs Vital Signs - First Documented 07/18/20 15:30 Temp 36.9 Pulse 90 Resp 16 B/P (MAP) 130/78 (95) Pulse Ox 94 O2 Delivery Room Air Capillary Refill : Height, Weight, BMI Height: 5'3.00" Weight: 174lbs. 12.8oz. [id number]; 23.71 BMI Method:Stated General Appearance: No Apparent Distress, WD/WN, Chronically ill Eyes: Bilateral Eye Normal Inspection, Bilateral Eye PERRL HEENT: PERRL/EOMI, Normal ENT Inspection, Pharynx Normal Neck: Full Range of Motion, Normal Inspection, Non Tender, Supple, Carotid Bruit Respiratory: Chest Non Tender, Lungs Clear, Normal Breath Sounds, No Accessory Muscle Use, No Respiratory Distress Cardiovascular: Regular Rate, Rhythm, No Edema, No Gallop, No JVD, No Murmur, Normal Peripheral Pulses Gastrointestinal: Normal Bowel Sounds, No Organomegaly, No Pulsatile Mass, Non Tender, Soft Back: Normal Inspection, No CVA Tenderness, No Vertebral Tenderness Extremity: Normal Capillary Refill, Normal Inspection, Normal Range of Motion, Non Tender, No Calf Tenderness, No Pedal Edema Neurologic/Psychiatric: Alert, Oriented x3, Normal Mood/Affect, Abnormal Gait, Motor Weakness (left sided 3/5-4/5) Skin: Normal Color, Warm/Dry Lymphatic: No Adenopathy PM&R Medical Assessment & Plan REHAB/MEDICAL ASSESSMENT AND PLAN: REHAB IMPAIRMENT GROUP: [ ] ETIOLOGIC DIAGNOSIS: [ (condition that led to rehab admission) ] The comorbidities that impact the patients function and/or functional outcome by: [ ] REHAB PLAN: The patient is being admitted to our comprehensive inpatient rehabilitation facility and can tolerate the intensity of service consisting of at least: 180 minutes of therapy a day, 5 out of 7 days a week Rehab treatment will consist of: [ (write brief focus that includes physician, rehab nursing and therapies/modalitiesIPOC will have more specifics) ] The patient/family has a good understanding of our discharge process and will benefit from an interdisciplinary inpatient rehabilitation program. The patient has potential to make improvement and is in need of at least two of the following multidisciplinary therapies including but not limited to physical, oc cupational, speech, and prosthetics and orthotics. Additionally the patient will need services from respiratory, nutritional services, wound care, psychology, etc. (Customize this to each patient). Given the patients complex condition and risk of further medical complications, rehabilitation services cannot be safely or effectively provided at a lower level of care such as a [facility] nursing facility. BARRIERS TO DISCHARGE: [ ] ESTIMATED LOS: [ ] DISPOSITION: [ ] RELEVANT CHANGES SINCE PREADMISSION SCREENING: I have compared the patients medical and functional status at the time of the preadmission screening and there are: [no changes] [changes as follows: (if there is a discrepancy between the IGC/Etiologic stated on the PAS, address/clarify this as well) ] PROGNOSIS: [ ] REHABILITATION GOALS: 1. [ (specific to the patient) ] All the above goals were reviewed with the patient and he/she is in agreement. By signing this document, I acknowledge that I have personally performed a full physical examination on this patient within 24 hours of admission to this [facility] rehabilitation facility and have determined the patient to be able to tolerate the above course of treatment at an intensive level for a reasonable period of time. I will be completing a detailed individualized Plan of Care for this patient by day #4 of the patients stay based upon the Preadmission Screen, the Post-Admission Evaluation, and the therapy evaluations. Admission Dx/Comorbidities: (1) CVA (cerebral vascular accident) ICD Codes: I63.9 - Cerebral infarction, unspecified (2) Status post aortic valve replacement ICD Codes: Z95.2 - Presence of prosthetic heart valve (3) ABIGAIL (obstructive sleep apnea) ICD Codes: G47.33 - Obstructive sleep apnea (adult) (pediatric) (4) Aortic stenosis ICD Codes: I35.0 - Nonrheumatic aortic (valve) stenosis (5) Carotid arterial disease ICD Codes: I77.9 - Disorder of arteries and arterioles, unspecified (6) Hx pulmonary embolism Status: Chronic ICD Codes: Z86.711 - Personal history of pulmonary embolism (7) Cochlear implant in place Status: Chronic ICD Codes: Z96.21 - Cochlear implant status (8) RLS (restless legs syndrome) Status: Chronic ICD Codes: G25.81 - Restless legs syndrome (9) GERD (gastroesophageal reflux disease) Status: Chronic ICD Codes: K21.9 - Gastro-esophageal reflux disease without esophagitis (10) Status post total hip replacement, right ICD Codes: Z96.641 - Presence of right artificial hip joint Assessment/Plan Assessment and Plan Assess & Plan/Chief Complaint Assessment: CVA with left sided weakness and peripheral vision loss s/p TVAR 2 weeks ago [facility] h/o massive PE holding Xarelto for 4 weeks ABIGAIL on biPAP Cochlear implant GERD IBS RLS Plan: IRF protocol Fall risk Monitor GERD Cardiology consultation DUNG KEYS DO Jul 18, 2020 21:11
--- NOTE | 2020-07-19 05:32 | PM&R Progress Note ---
Subjective HPI/CC On Admission Date Seen by Provider: Jul 19, 2020 Time Seen by Provider: 11:30 Subjective/Events-last exam 07/19/20: Patient doing really well Denies any new issues Denies any pain Peripheral vision is definitely restriction We will get BiPAP set up by RT Hemoglobin 10.2 Tylenol will be given for right-sided headache Had a small bowel movement but will give laxatives Review of Systems General: Fatigue HEENT: Visual Changes Neurological: Weakness, Incoordination Objective Exam Vital Signs Vital Signs Date Time Temp Pulse Resp B/P (MAP) Pulse Ox O2 Delivery O2 Flow Rate FiO2 07/19/20 20:26 36.8 75 18 156/65 (95) 95 Room Air Capillary Refill : General Appearance: No Apparent Distress, WD/WN, Chronically ill HEENT: PERRL/EOMI, Normal ENT Inspection, Pharynx Normal Neck: Full Range of Motion, Normal Inspection, Non Tender, Supple, Carotid Bruit Respiratory: Chest Non Tender, Lungs Clear, Normal Breath Sounds, No Accessory Muscle Use, No Respiratory Distress Cardiovascular: Regular Rate, Rhythm, No Edema, No Gallop, No JVD, No Murmur, Normal Peripheral Pulses Gastrointestinal: Normal Bowel Sounds, No Organomegaly, No Pulsatile Mass, Non Tender, Soft Back: Normal Inspection, No CVA Tenderness, No Vertebral Tenderness Extremity: Normal Capillary Refill, Normal Inspection, Normal Range of Motion, Non Tender, No Calf Tenderness, No Pedal Edema Neurologic/Psychiatric: Alert, Oriented x3, Normal Mood/Affect, Abnormal Gait, Motor Weakness (left sided 3/5-4/5) Skin: Normal Color, Warm/Dry Lymphatic: No Adenopathy Results/Procedures Lab Patient resulted labs reviewed. FIM Transfers Therapy Code Descriptions/Definitions Functional [place] Measure: 0=Not Assessed/NA 4=Minimal Assistance 1=Total Assistance 5=Supervision or Setup 2=Maximal Assistance 6=Modified [place] 3=Moderate Assistance 7=Complete IndependenceSCALE: Activities may be completed with or without assistive devices. 8-Hnydoylfvd-cdaquxl completes the activity by him/herself with no assistance from a helper. 5-Set-up or Clean-up Assistance-helper sets up or cleans up; patient completes activity. [place] assists only prior to or following the activity. 4-Supervision or Touching Assistance-helper provides verbal cues and/or touching/steadying and/or contact guard assistance as patient completes act ivity. Assistance may be provided throughout the activity or intermittently. 3-Partial/Moderate Assistance-helper does LESS THAN HALF the effort. [place] lifts, holds or supports trunk or limbs, but provides less than half the effort. 2-Substantial/Maximal Assistance-helper does MORE THAN HALF the effort. [place] lifts or holds trunk or limbs and provides more than half the effort. 6-Ncykmtkbi-irneuw does ALL the effort. Patient does none of the effort to complete the activity. Or, the assistance of 2 or more helpers is required for the patient to complete the activity. If activity was not attempted, code reason: 7-Patient Refused. 9-Not Applicable-not attempted and the patient did not perform the activity before the current illness, exacerbation or injury. 10-Not Attempted due to Environmental Limitations-(lack of equipment, weather restraints, etc.). 88-Not Attempted due to Medical Conditions or Safety Concerns. Roll Left to Right (QC): 6 Sit to Lying (QC): 6 Sit to Stand (QC): 4 (skilled cues for sequencing. ) Chair/Hhi-bv-Lfvif Xfer(QC): 4 (skilled cues to attend to the left side. ) Car Transfer (QC): 4 Gait Training Does the Patient Walk?: Yes Walk 10 feet (QC): 4 Walk 50 ft with 2 Turns(QC): 4 Walk 150 ft (QC): 4 (200 ft x 4 with FWW with CGA with skilled cues for attention to the left and safety with the walker. ) Walking 10ft/uneven surface-QC: 4 Gait Assistive Device: FWW Wheelchair Training Does the Pt Use a Wheelchair?: No Wheel 50 ft with 2 turns (QC): 9 Wheel 150 ft (QC): 9 Stair Training #of Steps: 4 1 Step (curb) (QC): 4 4 Steps (QC): 4 12 Steps (QC): 88 Balance Picking up an Object (QC): 3 ADL-Treatment Eating (QC): 88 Oral Hygiene (QC): 7 Shower/Bathe Self (QC): 88 Upper Body Dressing (QC): 3 (With clinical judgement.) Lower Body Dressing (QC): 3 (min assist in stance for balance.) On/Off Footwear (QC): 4 (SBA and cues for balance and donning correct shoe.) Toileting Hygiene (QC): 3 (Pt. incontinent twice in underwear and pants. Pt. able to doff with min assist over shoe. Requires cues to cleanse gil area effectively, as she will cleanse with toilet paper multiple times but not correct area.) Assessment/Plan Assessment and Plan Assess & Plan/Chief Complaint Assessment: CVA with left sided weakness and peripheral vision loss s/p TVAR 2 weeks ago [facility] h/o massive PE holding Xarelto for 4 weeks ABIGAIL on biPAP Cochlear implant GERD IBS RLS Plan: IRF protocol Fall risk Monitor GERD Cardiology consultation 07/19/2020: Appreciate cardiology consultation Monitor closely No anticoagulation for 2 more weeks Fall risk Monitor closely (1) CVA (cerebral vascular accident) (2) Status post aortic valve replacement (3) ABIGAIL (obstructive sleep apnea) (4) Aortic stenosis (5) Carotid arterial disease (6) Hx pulmonary embolism Status: Chronic (7) Cochlear implant in place Status: Chronic (8) RLS (restless legs syndrome) Status: Chronic (9) GERD (gastroesophageal reflux disease) Status: Chronic (10) Status post total hip replacement, right DUNG KEYS DO Jul 19, 2020 05:32
[2020-07-19] MEDS: ACETAMINOPHEN 325 MG TABLET PO PRN (05:53)
[2020-07-19] MEDS: MULTIVIT W/MINERALS TAB (THERAGRAN M) PO SCH (05:53)
[2020-07-19 06:06] LABS: MEAN PLATELET VOLUME 11.3 fL (9.0-12.2)
[2020-07-19 06:08] LABS: BASOPHILS % (AUTO) 0 % (0-10); EOSINOPHILS # (AUTO) 0.2 10^3/uL (0.0-0.3); EOSINOPHILS % (AUTO) 4 % (0-10); HEMATOCRIT 32 % (35-52); HEMOGLOBIN 10.2 g/dL (11.5-16.0); LYMPHOCYTES # (AUTO) 1.6 10^3/uL (1.0-4.0); LYMPHOCYTES % (AUTO) 31 % (12-44); MEAN CORPUSCULAR HEMOGLOBIN 31 pg (25-34); MEAN CORPUSCULAR HGB CONC 32 g/dL (32-36); MEAN CORPUSCULAR VOLUME 97 fL (80-99); MONOCYTES # (AUTO) 0.5 10^3/uL (0.0-1.0); MONOCYTES % (AUTO) 10 % (0-12); NEUTROPHILS # (AUTO) 2.9 10^3/uL (1.8-7.8); NEUTROPHILS % (AUTO) 55 % (42-75); PLATELET COUNT 132 10^3/uL (130-400); WHITE BLOOD COUNT 5.2 10^3/uL (4.3-11.0)
[2020-07-19 06:20] LABS: ALBUMIN 3.1 GM/DL (3.2-4.5); CHLORIDE 106 MMOL/L (98-107); POTASSIUM 3.8 MMOL/L (3.6-5.0); SODIUM 143 MMOL/L (135-145)
[2020-07-19 06:21] LABS: CALCIUM 8.8 MG/DL (8.5-10.1)
[2020-07-19 06:22] LABS: GLUCOSE 101 MG/DL (70-105); TOTAL PROTEIN 5.2 GM/DL (6.4-8.2)
[2020-07-19 06:23] LABS: CARBON DIOXIDE 27 MMOL/L (21-32)
[2020-07-19 06:24] LABS: BILIRUBIN,TOTAL 0.5 MG/DL (0.1-1.0)
[2020-07-19 06:25] LABS: ALKALINE PHOSPHATASE 81 U/L (40-136)
[2020-07-19 06:26] LABS: CREATININE SERUM 0.69 MG/DL (0.60-1.30); GFR ESTIMATED > 60
[2020-07-19 06:27] LABS: BUN/CREATININE RATIO 26
[2020-07-19 06:29] LABS: ALANINE AMINOTRANSFERASE 13 U/L (0-55)
--- NOTE | 2020-07-19 07:46 | Consultation-Cardiology ---
HPI-Cardiology Cardiology Consultation: Date of Consultation 07/19/20 Time Seen by a Provider: 10:35 Date of Admission 07-18-20 Attending Physician Fely Mcintosh DO Admitting Physician Fley Mcintosh DO Consulting Physician CINDY HAMMONDS HPI: Chief Complaint: CVA with left sided residual Ms. Sierra is an 84 yr old female admitted to [facility] to Dr. Mcintosh's service. Her daughters are at the bedside. She reports she underwent TAVR at [facility] and subsequently suffered a stroke which required transfer to [facility] neurology and neuro-surgical services. She reports left sided neglect and weakness which is improving. No c/o CP, palpitations, syncope or near syncope. Mild dyspnea with exertion. Review of Systems-Cardiology Review of Systems Constitutional: No chills, No fever Eyes: No vision change Ears/Nose/Throat: No epistaxis, No recent hearing loss Respiratory: As described under HPI Cardiovascular: As described under HPI Gastrointestinal: No constipation, No diarrhea, No nausea, No vomiting Genitourinary: No dysuria Musculoskeletal: As describe under HPI Skin: No rash on exposed areas, No ulcerations on exposed areas Psychiatric/Neurological: As described under HPI Hematologic: No bleeding abnormalities All Other Systems Reviewed Negative Unless Noted: Yes ARR-Fgizgf-Biwxml Hx Patient Social History Marrital Status: Employed/Student: retired Smoking Status: Never a Smoker Have you traveled recently?: No Alcohol Use?: No Pt feels they are or have been: No Immunizations Up To Date Date of Pneumonia Vaccine: Feb 25, 2019 Date of Influenza Vaccine: Dec 07, 2019 Past Medical History PMH As described under Assessment. Family Medical History Family Medical History: Does not report fam h/o or early CAD or SCD (taken from previous records) Family History: Diabetes mellitus 19 FATHER 19 MOTHER FH: heart disease 19 MOTHER FH: muscular dystrophy G8 BROTHER (Friedreich's Ataxia) Hypertension Myocardial infarction 19 MOTHER Allergies and Home Medications Allergies Coded Allergies: No Known Drug Allergies (Unverified , 02/04/17) Home Medications Acetaminophen 325 Mg Capsule, 650 MG PO Q4H PRN for PAIN-MILD (1-4), (Reported) Last Action: Reviewed Omeprazole 20 Mg Capsule.dr, 20 MG PO BID, (Reported) Last Action: Reviewed Rivaroxaban 20 Mg Tablet, 20 MG PO DAILY, (Reported) Last Action: Reviewed Physical Exam-Cardiology Physical Exam Vital Signs/I&O 07/24/20 07/24/20 07:48 08:25 Temp 36.7 Pulse 80 Resp 16 B/P (MAP) 114/58 (76) Pulse Ox 95 O2 Delivery Room Air Room Air Capillary Refill : Constitutional: AAO x 3, well-developed, well-nourished HEENT: PERRL, hearing is well preserved, oral hygience is good Neck: No carotid bruit; carotid pulses are 2 + bilaterally Respiratory: No accessory muscle use, No respiratory distress; chest expansion is symmetric, chest is bilaterally symmetric, lungs clear to auscultation Cardiovascular: regular rate-rhythm; No JVD; S1 and S2, systolic murmur Gastrointestinal: No tender; soft, round Extremities: no lower extremity edema bilateral Neurologic/Psychiatric: other (left sided neglect; RUE and RLE 5/5; LUE and LLE 4/5) Skin: No rash on exposed areas, No ulcerations on exposed areas Data Review Labs A/P-Cardiology Assessment/Admission Diagnosis 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 - Cardiac cath of Dec 27, 2019 showed - No significant coronary artery disease. Normal right heart pressures without evidence of intracardiac shunt. Aortic root angiography showed calcification and diminished excursion of aortic valve leaflets and mild to mod aortic regurgitation - Consultation with Dr Lopez at [facility] in Jan 2020: pt states she was advised to wait on AVR because she has no symptoms - S/P TAVR by Dr. Chang at [facility] June 2020 - subsquent CVA requiring transfer to [facility] neurology for thrombectomy by Dr. Ornelas (neuro-surgery) and Dr. De Santiago (neurologist) - april chong report d/t records not available Right superficial femoral artery pseudoaneursym after cardiac cath of Dec 27, 2019, treated with thrombin injection by Dr. 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 Currently on rivaroxaban Bipolar R hemiarthroplasty on 02-04-2017 for R hip fracture d/t a non-syncopal fall Mild ABIGAIL on sleep study of 03-11-2018 Carotid buits vs transmitted murmur - Minimal carotid dz on u/s of 05-06-2018 Hardness of hearing Discussion and Recomendations Request records from [facility] Continue current medication regimen Monitor lab We would like to thank Dr. Mcintosh for this consult Further recs will be based on her course CINDY BLACKWOOD Jul 19, 2020 07:46
[2020-07-19 08:02] VITALS: BP 121/58
[2020-07-19] MEDS: CALCIUM CARBONATE 600 MG (CALCARB) TAB PO SCH (08:06)
[2020-07-19] MEDS: ASPIRIN E.C. 81 MG (ECOTRIN) TAB PO SCH (08:06)
[2020-07-19] MEDS: DOCUSATE SODIUM 100 MG (COLACE) CAP PO SCH ×2 (08:06→21:00)
[2020-07-19] MEDS: PANTOPRAZOLE 20 MG TABLET (PROTONIX) PO SCH (08:06)
[2020-07-19] MEDS: SENNA W/DOCUSATE (SENOKOT S) TABLET PO SCH ×2 (08:07→21:00)
[2020-07-19] MEDS: polyethylene glycoL POWDER 17 GM (MIRALAX) PACK PO SCH ×2 (08:07→21:00)
--- NOTE | 2020-07-19 08:35 | ST Cognitive Linguistic Eval ---
Speech Evaluation-General Medical Diagnosis CVA Onset Date: July 12, 2020 Therapy Diagnosis Therapy Diagnosis: Cognitive-communication Referral Referring Physician: Dr. Mcintosh Medical History Pertinent Medical History: Arthritis, GERD Reviewed History: Yes Social History Current Living Status: Alone Speech PLF-Current Status Prior Level of Function Patient lived home alone where she was independent for her daily needs. Currently her two daughters are here to assist her until the end of July. Subjective Patient was pleasant and cooperative with the cognitive assessment. Language Eval: Auditory Comprehends Simple Yes/No Ques: Functional Indent/Objects Multiple Henderson: Functional Ident/Pics in Multiple Henderson: Functional Follows 1-Step Commands: Functional Follows Complex Directions: Functional Follows General Conversations: Functional Language Eval: Verbal Language Completes Spontaneous Greeting: Functional Produces Auto, Serial Info: Functional Imitates Simple Words/Phrases: Functional Word Finding: Functional Requests Basic Needs: Functional States Basic Personal Info: Functional Expresses Complex Ideas: Mild Objective Cognitive Domain Attention: WNL Memory: WNL Problem Solving: Functional Executive Functions: Mild Visuospatial Skills: Mild Composite Severity Rating: Mild Clock Drawing Severity Rating: Mild Objective Formal/Standardized Tests [facility] Mental Status ([facility]) Results 25/30, Mild Neurocognitive Disorder Oral Motor/Speech Production Within Normal Limits Impression Patient is a pleasant 84 y/o female who was admitted to the ARU s/p CVA follow ing heart surgery. Patient is noted to be pleasantly confused, however responds to cues for clarity. Patient has some mild visual neglect which is impacting her mobility and daily tasks. Patient was given the SLUMS with a score of 25/30 obtained. The patient's score is within the mild range of deficit and indicates further ST services are needed. Patient will receive skilled ST with focus on memory, safety awareness and problem solving so that she may return home safer. Speech Patient Assess Expression of Ideas/Wants: Exhibits (3) Understanding Verbal Content: Usually Understands (3) Brief Interview-Mental Status: Yes Repetition of Three Words: Three (3) Temporal Orientation: Year: Correct (3) Temporal Orientation: Month: Accurate within 5 days(2) Temporal Orientation: Day: Correct (1) Recall : Wear to say "Sock": Yes,after cueing (1) Recall : Color: Yes, after cueing (1) Recall : Bed: Yes,after cueing (1) Memory/Recall Ability: Current season, That he or she is in a hsp/hsp unit Speech Short Term Goals Short Term Goals Short Term Goals 1) Patient will complete memory tasks related to her daily needs at 90% or greater with minimal cues. 2) Patient will complete safety awareness tasks related to her daily needs at 90% or greater with minimal cues. 3) Patient will complete problem solving tasks related to her daily needs at 90% or greater with minimal cues. Speech Family Consumer Scientist Goals Fpc Goals Patient will improve her cognitive-communication abilities in order to complete daily living tasks with minimal assist. Speech-Plan Patient/Family Goals Patient/Family Goals: Patient plans on returning to her home where she lives alone. Treatment Plan Speech Therapy Treatment Plan: Continue Plan of Care Treatment Duration: Aug 03, 2020 Frequency: 4 times per week (Patient will receive skilled ST 4-5x per week) Estimated Hrs Per Day: .5 hour per day Rehab Potential: Fair Barriers to Learning: Patient's recent CVA, medical status and age Pt/Family Agrees to Plan: Yes Safety Risks/Education Teaching Recipient: Patient Teaching Methods: Discussion Response to Teaching: Verbalize Understanding Education Topics Provided: Safety within her room, communication of wants/needs Time Speech Therapy Time In: 08:00 Speech Therapy Time Out: 08:30 Total Billed Time: 30 Billed Treatment Time 1, ELI TAYLOR [address] ST Jul 19, 2020 08:35
[2020-07-19] MEDS ORDERED: NON-FORMULARY MEDICATION 1 EA EA (Multivitamin 1 EACH) PO SCH (09:00)
[2020-07-19] MEDS ORDERED: NON-FORMULARY MEDICATION 1 EA EA (Calcium Carbonate (Calcium) 500 MG) PO SCH (09:00)
[2020-07-19] MEDS ORDERED: OMEPRAZOLE 20 MG (PriLOSEC) CAP NON-FORMULARY PO SCH (09:00)
--- NOTE | 2020-07-19 09:36 | Physical Therapy Daily Note ---
PT Daily Note-Current Subjective Pt agreeable. Primary complaint is "I am tired but I am not." Pain rated 6/10 (R) eye/sinus area Mental Status Patient Orientation: Person, Place, Situation Transfers SCALE: Activities may be completed with or without assistive devices. 8-Lzarjlawkc-pnootyv completes the activity by him/herself with no assistance from a helper. 5-Set-up or Clean-up Assistance-helper sets up or cleans up; patient completes activity. [place] assists only prior to or following the activity. 4-Supervision or Touching Assistance-helper provides verbal cues and/or touching/steadying and/or contact guard assistance as patient completes activit y. Assistance may be provided throughout the activity or intermittently. 3-Partial/Moderate Assistance-helper does LESS THAN HALF the effort. [place] lifts, holds or supports trunk or limbs, but provides less than half the effort. 2-Substantial/Maximal Assistance-helper does MORE THAN HALF the effort. [place] lifts or holds trunk or limbs and provides more than half the effort. 6-Futssiare-urhpce does ALL the effort. Patient does none of the effort to complete the activity. Or, the assistance of 2 or more helpers is required for the patient to complete the activity. If activity was not attempted, code reason: 7-Patient Refused. 9-Not Applicable-not attempted and the patient did not perform the activity before the current illness, exacerbation or injury. 10-Not Attempted due to Environmental Limitations-(lack of equipment, weather restraints, etc.). 88-Not Attempted due to Medical Conditions or Safety Concerns. Transfers mod (I) Gait Training Gait Assistive Device: FWW Pt amb with FWW and CGA 1 x 80ft, 3 x 200ft. Exercises Seated Therapy Exercises: Ankle pumps, Long arc quads, Hip flexion, Hip abd/add Seated Reps: [address] Ex=Flex, Abd, Ext Standing Reps: 20 NuStep Minutes: 15 NuStep Workload: 2 Treatments Pt used BR with assist for pericare. Assessment Current Status: Good Progress Pt showing steady balance. Pt able to complete all ther ex with rest breaks as needed. Pt back to chair with call light and all needs met. Family present. Functional mobility at mod (I) level. Pt fatigues easily, somewhat SOB with activity. PT Short Term Goals Short Term Goals Time Frame: Jul 25, 2020 Roll Left & Right: 6 Sit to lyin Lying to sitting on side of be: 6 Sit to stand: 5 Chair/dum-la-ocmjo transfer: 5 Walk 10 feet: 5 Walk 50 feet with two turns: 5 Walk 150 feet: 5 PT Skilled Nursing Goals Utility Worker Goals PT Utility Worker Goals Time Frame: Aug 08, 2020 Roll Left & Right (QC): 6 Sit to Lying (QC): 6 Lying-Sitting on Side/Bed(QC): 6 Sit to Stand (QC): 6 Chair/Zog-eg-Kztqk Xfer(QC): 6 Toilet Transfer (QC): 6 Car Transfer (QC): 6 Does the Patient Walk: Yes Walk 10 feet (QC): 6 Walk 50ft with 2 Turns (QC): 6 Walk 150 ft (QC): 6 Walking 10ft on Uneven Surface: 6 1 Step (curb) (QC): 5 4 Steps (QC): 5 12 Steps (QC): 5 Picking up an Object (QC): 5 Wheel 50 feet with 2 turns (QC: 9 Wheel 150 feet: 9 PT Plan Treatment/Plan Treatment Plan: Continue Plan of Care Treatment Plan: Bed Mobility, Education, Functional Activity Priya, Functional Strength, Group Therapy, Gait, Safety, Therapeutic Exercise, Transfers Treatment Duration: Aug 08, 2020 Frequency: At least 5 of 7 days/Wk (IRF) Estimated Hrs Per Day: 1.5 hours per day Patient and/or Family Agrees t: Yes Time/GCodes Time In: 900 Time Out: 1000 Total Billed Treatment Time: 60 Total Billed Treatment 1, FA 15', Gait 15', Ther ex 30' STEPH MICHEL CPTA Jul 19, 2020 09:36
--- NOTE | 2020-07-19 10:32 | Occupational Ther Daily Note ---
OT Current Status-Daily Note Subjective Pt alert, sitting in recliner. Pt agrees to therapy. Pt c/o pain, nrsg aware and had already brought pain meds. IV[place]OF [place] using cochlear implant and hearing aid Mental Status/Objective Patient Orientation: Person, Place, Time, Situation Attachments: Other-See Comments (cochlear implant) ADL-Treatment Pt agrees to shower. Placed shower chair in shower due to positioning of other bench. Pt required verbal/gestural cues (due to [place]) to initiate and prompt to move to next body part. SBA for safety during shower, pt able to reach all areas. Set up and SBA for dressing. Pt donned shirt on backwards when DOWNING brought attention to it pt stated that it was fine and did not want to change it. Daughters changed pt's mind and pt turned it around. Standing at sink with SBA, pt completed oral care by self. SBA for toilet transfer and toileting. Pt takes increased time to complete tasks due to slow processing and need for cues. After therapy, pt sitting in recliner with call light/phone in reach. All needs met in room. Therapy Code Descriptions/Definitions Functional [place] Measure: 0=Not Assessed/NA 4=Minimal Assistance 1=Total Assistance 5=Supervision or Setup 2=Maximal Assistance 6=Modified [place] 3=Moderate Assistance 7=Complete IndependenceSCALE: Activities may be completed with or without assistive devices. 0-Uzftrwdgba-wdurblp completes the activity by him/herself with no assistance from a helper. 5-Set-up or Clean-up Assistance-helper sets up or cleans up; patient completes activity. [place] assists only prior to or following the activity. 4-Supervision or Touching Assistance-helper provides verbal cues and/or touching/steadying and/or contact guard assistance as patient completes activity. Assistance may be provided throughout the activity or intermittently. 3-Partial/Moderate Assistance-helper does LESS THAN HALF the effort. [place] lifts, holds or supports trunk or limbs, but provides less than half the effort. 2-Substantial/Maximal Assistance-helper does MORE THAN HALF the effort. [place] lifts or holds trunk or limbs and provides more than half the effort. 0-Qgzfyqmva-hvhrdr does ALL the effort. Patient does none of the effort to complete the activity. Or, the assistance of 2 or more helpers is required for the patient to complete the activity. If activity was not attempted, code reason: 7-Patient Refused. 9-Not Applicable-not attempted and the patient did not perform the activity before the current illness, exacerbation or injury. 10-Not Attempted due to Environmental Limitations-(lack of equipment, weather restraints, etc.). 88-Not Attempted due to Medical Conditions or Safety Concerns. Oral Hygiene (QC): 4 Shower/Bathe Self (QC): 4 Upper Body Dressing (QC): 4 Lower Body Dressing (QC): 4 On/Off Footwear: 4 Toileting Hygiene (QC): 4 Toilet Transfer (QC): 4 OT Short Term Goals Short Term Goals Time Frame: Jul 26, 2020 Eatin Oral hygiene: 5 Toileting hygiene: 4 Shower/bathe self: 4 Upper body dressin Lower body dressin Putting on/taking off footwear: 4 OT Usp Goals Usp Goals Time Frame: Aug 02, 2020 Eating (QC): 6 Oral Hygiene (QC): 6 Toileting Hygiene (QC): 6 Shower/Bathe Self (QC): 4 Upper Body Dressing (QC): 5 Lower Body Dressing (QC): 5 On/Off Footwear (QC): 6 Additional Goals: 1-Demonstrate ADL Tasks, 2-Verbalize Understanding, 3- ImproveStrength/Priya 1=Demonstrate adherence to instructed precautions during ADL tasks. 2=Patient will verbalize/demonstrate understanding of assistive devices/modifications for ADL. 3=Patient will improve strength/tolerance for activity to enable patient to perform ADL's. OT Education/Plan Problem List/Assessment Assessment: Decreased Activ Tolerance, Decreased Safety Aware, Decreased UE Strength, Impaired Self-Care Skills Discharge Recommendations Plan/Recommendations: Continue POC Treatment Plan/Plan of Care Patient would benefit from OT for education, treatment and training to promote independence in ADL's, mobility, safety and/or upper extremity function for ADL's. Plan of Care: ADL Retraining, Functional Mobility, UE Funct Exercise/Act Treatment Duration: Aug 02, 2020 Frequency: At least 5 of 7 days/Wk (IRF) Estimated Hrs Per Day: 1.5 hours per day Agreement: Yes Rehab Potential: Good Time/GCodes Start Time: 10:15 Stop Time: 11:30 Total Time Billed (hr/min): 75 Billed Treatment Time 1 visit-ADL 5 (75 min) KEITH GRANADOS Jul 19, 2020 10:32
--- NOTE | 2020-07-19 12:50 | Consultation-Cardiology ---
HPI-Cardiology Cardiology Consultation: Date of Consultation 07/19/20 Time Seen by a Provider: 12:30 Date of Admission Attending Physician Fely Mcintosh DO Admitting Physician Fely Mcintosh DO Consulting Physician LAYLA ELLISON MD, FACP, FACC HPI: Chief Complaint: Reason for consultation: Post-TAVR CVA HPI 84 yo woman how underwent TAVR at [facility] in late June 2020 and developed a gil-operative embolic stroke, was sent to [place], where she underwent percutaneous embolectomy that resulted in improvement of L-sided weakness that she had developed after TAVR. Currently, notes only mild weakness on the L. De nies cp or palp or syncope or shortness of breath or swelling Review of Systems-Cardiology Review of Systems Constitutional: malaise; No weight loss, No weight gain Eyes: other (R-sided gaze preference) Ears/Nose/Throat: No ear discharge, No nasal drainage, No recent hearing loss Respiratory: As described under HPI Cardiovascular: As described under HPI Gastrointestinal: No diarrhea, No nausea, No vomiting Genitourinary: No hematuria, No urine frequency changes Musculoskeletal: No back pain, No joint pain Skin: No rash, No ulcerations Psychiatric/Neurological: As described under HPI Hematologic: No bleeding abnormalities All Other Systems Reviewed Negative Unless Noted: Yes BOS-Qretrk-Eqssdu Hx Patient Social History Marrital Status: Employed/Student: retired Smoking Status: Never a Smoker Have you traveled recently?: No Alcohol Use?: No Pt feels they are or have been: No Immunizations Up To Date Date of Pneumonia Vaccine: Feb 25, 2019 Date of Influenza Vaccine: Dec 07, 2019 Past Medical History PMH As described under Assessment. Family Medical History Family Medical History: Does not report fam h/o or early CAD or SCD (taken from previous records) Family History: Diabetes mellitus 19 FATHER 19 MOTHER FH: heart disease 19 MOTHER FH: muscular dystrophy G8 BROTHER (Friedreich's Ataxia) Hypertension Myocardial infarction 19 MOTHER Allergies and Home Medications Allergies Coded Allergies: No Known Drug Allergies (Unverified , 02/04/17) Home Medications Acetaminophen 325 Mg Capsule, 650 MG PO Q4H PRN for PAIN-MILD (1-4), (Reported) Last Action: Converted Aspirin 81 Mg Tablet.dr, 81 MG PO DAILY, (Reported) Last Action: Continued Calcium Carbonate 500 Mg Tablet, 500 MG PO DAILY, (Reported) Last Action: Converted Multivitamin 1 Each Tablet, 1 EACH PO DAILY, (Reported) Last Action: Converted Omeprazole 20 Mg Capsule.dr, 20 MG PO DAILY, (Reported) Last Action: Continued Patient Home Medication List Home Medication List Reviewed: Yes Physical Exam-Cardiology Physical Exam Vital Signs/I&O 07/19/20 08:02 Temp 36.8 Pulse 90 Resp 16 B/P (MAP) 121/58 (79) Pulse Ox 96 O2 Delivery Room Air Capillary Refill : Constitutional: AAO x 3, well-developed, well-nourished HEENT: PERRL, EOMI, hearing is well preserved; No xanthelasmas are seen Neck: carotid pulses are 2 + bilaterally Respiratory: No accessory muscle use; other (good bilateral air entry) Cardiovascular: regular rate-rhythm, S1 and S2, systolic murmur (soft ASHLEY at card base) Gastrointestinal: No tender; soft; No guarding, No rebound; audible bowel sounds Extremities: No clubbing, No cyanosis, No significant edema Neurologic/Psychiatric: oriented x 3, other (mild L-sided weakness, R-sided gaze preference) Skin: No rash on exposed areas, No ulcerations on exposed areas Data Review Labs Laboratory Tests 07/19/20 05:18: White Blood Count 5.2, Red Blood Count 3.28L, Hemoglobin 10.2L, Hematocrit 32L, Mean Corpuscular Volume 97, Mean Corpuscular Hemoglobin 31, Mean Corpuscular Hem oglobin Concent 32, Red Cell Distribution Width 13.8, Platelet Count 132, Mean Platelet Volume 11.3, Immature Granulocyte % (Auto) 1, Neutrophils (%) (Auto) 55, Lymphocytes (%) (Auto) 31, Monocytes (%) (Auto) 10, Eosinophils (%) (Auto) 4, Basophils (%) (Auto) 0, Neutrophils # (Auto) 2.9, Lymphocytes # (Auto) 1.6, Monocytes # (Auto) 0.5, Eosinophils # (Auto) 0.2, Basophils # (Auto) 0.0, Immature Granulocyte # (Auto) 0.0, Percent Immature Platelet Fraction 3.4, Sodium Level 143, Potassium Level 3.8, Chloride Level 106, Carbon Dioxide Level 27, Anion Gap 10, Blood Urea Nitrogen 18, Creatinine 0.69, Estimat Glomerular Filtration Rate > 60, BUN/Creatinine Ratio 26, Glucose Level 101, Calcium Level 8.8, Corrected Calcium 9.5, Total Bilirubin 0.5, Aspartate Amino Transf (AST/SGOT) 15, Alanine Aminotransferase (ALT/SGPT) 13, Alkaline Phosphatase 81, Total Protein 5.2L, Albumin 3.1L Laboratory Tests 07/19/20 05:18 A/P-Cardiology Assessment/Admission Diagnosis 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 - Cardiac cath of Dec 27, 2019 showed - No significant coronary artery disease. Normal right heart pressures without evidence of intracardiac shunt. Aortic root angiography showed calcification and diminished excursion of aortic valve leaflets and mild to mod aortic regurgitation - Consultation with Dr Lopez at [facility] in Jan 2020: pt states she was advised to wait on AVR because she has no symptoms - S/P TAVR by Dr. Chang at [facility] June 2020 - subsquent CVA requiring transfer to [facility] neurology for thromboembolectomy by Dr. Ornelas (neuro-surgery) and Dr. De Santiago (neurologist) - per daughters report (records not available) Right superficial femoral artery pseudoaneursym after cardiac cath of Dec 27, 2019, treated with thrombin injection by Dr. Diaz at [facility] Symptoms of leg claudication, but segmental pressure in Nov 2018 did not show any significant PAD Mild leg swelling, likely r/t venous insuff H/o acute resp failure d/t massive pulm embolism, treated with thrombolysis and mech vent in early April 2017, subsequently treated with rivaroxaban Bipolar R hemiarthroplasty on 02-04-2017 for R hip fracture d/t a non-syncopal fall Mild ABIGAIL on sleep study of 03-11-2018 Minimal carotid dz on u/s of 05-06-2018 Hardness of hearing Discussion and Recomendations * We discussed her CV issues with her and her daughters in detail * Trying to obtain detailed records from [facility] [place] * Management of stroke is with Dr Mcintosh * Monitor labs LAYLA ELLISON MD FACP FAC CCDS Jul 19, 2020 12:50
--- NOTE | 2020-07-19 13:08 | Physical Therapy Daily Note ---
PT Daily Note-Current Subjective Agreeable to PT. No complaints this date. Transfers SCALE: Activities may be completed with or without assistive devices. 4-Edkrpyimle-kmmkxgq completes the activity by him/herself with no assistance from a helper. 5-Set-up or Clean-up Assistance-helper sets up or cleans up; patient completes activity. [place] assists only prior to or following the activity. 4-Supervision or Touching Assistance-helper provides verbal cues and/or touching/steadying and/or contact guard assistance as patient completes activity. Assistance may be provided throughout the activity or intermittently. 3-Partial/Moderate Assistance-helper does LESS THAN HALF the effort. [place] lifts, holds or supports trunk or limbs, but provides less than half the effort. 2-Substantial/Maximal Assistance-helper does MORE THAN HALF the effort. [place] lifts or holds trunk or limbs and provides more than half the effort. 0-Ynjxberkb-zhytnw does ALL the effort. Patient does none of the effort to complete the activity. Or, the assistance of 2 or more helpers is required for the patient to complete the activity. If activity was not attempted, code reason: 7-Patient Refused. 9-Not Applicable-not attempted and the patient did not perform the activity before the current illness, exacerbation or injury. 10-Not Attempted due to Environmental Limitations-(lack of equipment, weather restraints, etc.). 88-Not Attempted due to Medical Conditions or Safety Concerns. Sit to Stand (QC): 4 (skilled cues for hand placment 50% of the time. ) Chair/Aqd-ed-Vplmp Xfer(QC): 4 Gait Training Walk 150 ft (QC): 4 Gait Assistive Device: FWW Pt ambulated x 75 ft x 2; 200 ft x 2 with FWW with SBA. Safe and steady gait. Stair Training 4 Steps (QC): 4 (use of B handrail; SBA with intermittent cues for safety. Reciprocal gait pattern.) Assessment Current Status: Good Progress Pt improving the noted carryover of education / cues for hand placement. Improved safety. PT Short Term Goals Short Term Goals Time Frame: Jul 25, 2020 Roll Left & Right: 6 Sit to lyin Lying to sitting on side of be: 6 Sit to stand: 5 Chair/tuo-ce-bbzgp transfer: 5 Walk 10 feet: 5 Walk 50 feet with two turns: 5 Walk 150 feet: 5 PT Chcf Goals Chcf Goals PT Sr. Payroll Manager Goals Time Frame: Aug 08, 2020 Roll Left & Right (QC): 6 Sit to Lying (QC): 6 Lying-Sitting on Side/Bed(QC): 6 Sit to Stand (QC): 6 Chair/Ymd-ll-Sirpc Xfer(QC): 6 Toilet Transfer (QC): 6 Car Transfer (QC): 6 Does the Patient Walk: Yes Walk 10 feet (QC): 6 Walk 50ft with 2 Turns (QC): 6 Walk 150 ft (QC): 6 Walking 10ft on Uneven Surface: 6 1 Step (curb) (QC): 5 4 Steps (QC): 5 12 Steps (QC): 5 Picking up an Object (QC): 5 Wheel 50 feet with 2 turns (QC: 9 Wheel 150 feet: 9 PT Plan Problem List Problem List: Activity Tolerance, Functional Strength, Safety, Balance, Gait, Transfer, Bed Mobility Treatment/Plan Treatment Plan: Continue Plan of Care Treatment Plan: Bed Mobility, Education, Functional Activity Priya, Functional Strength, Group Therapy, Gait, Safety, Therapeutic Exercise, Transfers Treatment Duration: Aug 08, 2020 Frequency: At least 5 of 7 days/Wk (IRF) Estimated Hrs Per Day: 1.5 hours per day Patient and/or Family Agrees t: Yes Safety Risks/Education Patient Education: Safety Issues Teaching Recipient: Patient Teaching Methods: Discussion Response to Teaching: Reinforcement Needed Discharge Recommendations Therapy Discharge Recommendati: Post Acute PT (HHC PT) Time/GCodes Time In: 1240 Time Out: 1301 Total Billed Treatment Time: 21 Total Billed Treatment visit GT 21 KEITH ALANIZ PT Jul 19, 2020 13:08
[2020-07-19 20:26] VITALS: BP 156/65
[2020-07-19] MEDS: MELATONIN 3 MG TABLET PO PRN (20:33)
[2020-07-20] MEDS: PANTOPRAZOLE 20 MG TABLET (PROTONIX) PO SCH (05:11)
[2020-07-20] MEDS: MULTIVIT W/MINERALS TAB (THERAGRAN M) PO SCH (05:12)
[2020-07-20] MEDS: ACETAMINOPHEN 325 MG TABLET PO PRN ×2 (05:12→11:57)
--- NOTE | 2020-07-20 06:38 | Individualized Plan of Care ---
Individualized Plan of Care Rehab Nursing IPOC Order Admission Date Jul 18, 2020 at 15:00 Current Orders Orders Admission Order(Inpt,Obs,Sdc) (07/18/20 12:36) Vital Signs: Per Unit Policy ( 1600 (07/18/20 12:36) Nirmal Boles (07/18/20 12:36) Sequential Compression Device .admit (07/18/20 12:36) Hereditary Cancer Program Coordinator-Inpt Rehab Con (07/18/20 12:36) Rehab Nursing Orders-Ipoc (07/18/20 12:36) Physical Therapy Rehab Orders (07/18/20 12:36) Occupational Therapy Rehab Ord (07/18/20 12:36) Speech Therapy Rehab Orders (07/18/20 12:36) Cbc With Automated Diff (07/19/20 06:00) Comprehensive Metabolic Panel (07/19/20 06:00) Precautions (Aru) (07/18/20 12:36) Rehab-Intensity Of Therapy (07/18/20 12:36) Initiate Admission Nursing Pro .admission (07/18/20 12:36) Acetaminophen Tablet/Caplet (Tylenol T (07/18/20 12:45) Alprazolam Tablet (Xanax Tablet) (07/18/20 12:45) Calcium Carbonate Chew Tablet (Antacid C (07/18/20 12:45) Diphenhydramine Tablet (Benadryl Tablet) (07/18/20 12:45) Docusate Sodium Capsule (Colace Capsule) (07/18/20 21:00) Docusate Sodium Capsule (Colace Capsule) (07/18/20 12:45) Bisacodyl Suppository (Dulcolax Supposit (07/18/20 12:45) Lactulose Oral Solution (Enulose Oral So (07/18/20 12:45) Na Phos/Na Biphos Enema (Fleet Enema Giovanni (07/18/20 12:45) Guaifenesin/Codeine Syrup (Robitussin Ac (07/18/20 12:45) Loperamide Tablet (Imodium Tablet) (07/18/20 12:45) Melatonin Tablet (Melatonin Tablet) (07/18/20 12:45) Polyethylene Glycol Powder Pkt (Miralax (07/18/20 21:00) Ondansetron Oral Dissolve Tab (Zofran (07/18/20 12:45) Senna S Tablet (Senokot S Tablet) (07/18/20 21:00) Initiate Admission Nursing Pro .admission (07/18/20 12:36) Admission Arrival Bed Request (07/18/20 15:03) Patient Visit (07/18/20 ) Pt Eval Moderate Complexity (07/18/20 ) Functional Activities, Ea 15 (07/18/20 ) Patient Visit (07/18/20 ) Functional Activities, Ea 15 (07/18/20 ) Aspirin Enteric Coated Tablet (Ecotrin T (07/19/20 09:00) Omeprazole (Non-Formulary) (Prilosec (No (07/19/20 09:00) (Nf) Acetaminophen (Tylenol) (07/18/20 18:15) (Nf) Calcium Carbonate (Calcium) (07/19/20 09:00) (Nf) Multivitamin (07/19/20 09:00) Consult Cardiology (07/18/20 18:10) Pantoprazole Tablet (Protonix Tablet) (07/19/20 09:00) Therapeutic Multivitamin Tab (Vitamins, (07/19/20 07:00) Calcium Carbonate Tablet (Calcarb 600 Ta (07/19/20 08:00) Patient Visit (07/19/20 ) Speech Sound Lang Comp (07/19/20 ) Treat. Speech/Lang/Voice (07/19/20 ) General/Regular (07/19/20 Lunch) Obtain Records From (Order) (07/19/20 10:35) Communication For Respiratory (07/19/20 13:02) Bipap (Bilevel) Set Up (07/19/20 13:02) Patient Visit (07/19/20 ) Gait Training, Ea 15 Min (07/19/20 ) Patient Visit (07/19/20 ) Functional Activities, Ea 15 (07/19/20 ) Gait Training, Ea 15 Min (07/19/20 ) Exercise Therap, Ea 15 Min (07/19/20 ) Rehab Nursing Orders: Ongoing Assess. of Cognitive Status, Ongoing Assess. of Function Status, Bladder Management, Bladder Scan, Bladder Training, Bowel Management, Bowel Training, Disease Management & Educaiton, DVT Prophylaxis, Fall Prevention, Fluid/Electrolyte/Nutrition Mgmt, Infection Prevention, Medication Management & Education, Management of Risks & Complications, Nutrition Management, Pain Management, Patient/Family Support, Safety Management Intensity of Therapy to be met Patient to be seen: Min.3h per day/5 of 7d PT IPOC Problem List: Activity Tolerance, Functional Strength, Safety, Balance, Gait, Transfer, Bed Mobility Treatment Plan: Continue Plan of Care Bed Mobility, Education, Functional Activity Priya, Functional Strength, Group Therapy, Gait, Safety, Therapeutic Exercise, Transfers Treatment Duration: Aug 08, 2020 Frequency: At least 5 of 7 days/Wk (IRF) Estimated Hrs Per Day: 1.5 hours per day OT IPOC Problems: Decreased Activ Tolerance, Decreased Safety Aware, Decreased UE Strength, Impaired Self-Care Skills OT Treatment, Training and Edu: Yes Plan of Care: ADL Retraining, Functional Mobility, UE Funct Exercise/Act Treatment Duration: Aug 02, 2020 Frequency: At least 5 of 7 days/Wk (IRF) Estimated Hrs Per Day: 1.[address] IPOC Speech Therapy Treatment Plan: Continue Plan of Care Treatment Duration: Aug 03, 2020 Frequency: 4 times per week (Patient will receive skilled ST 4-5x per week) Estimated Hrs Per Day: .5 hour per day Hereditary Cancer Program Coordinator/Case Mgmt Hereditary Cancer Program Coordinator/Case Managemen: Discharge Planning Dietitian/Head Loader Dietitian/Head Loader to monitor nutritional status and make changes and/or recommendations as needed and work with speech pathology on dietary upgrades as the occur. Physician IPOC Medical Issues being managed closely and that require the 24 hour availability of a physician: Recent catastrophic stroke following aortic stenosis surgery will require close monitoring of recurrence and extension of stroke close monitoring of blood pressure Medical Issues: Bowel/Bladder Function, DVT Prophylaxis, Falls Precautions, Flu id/Electrolyte/Nutrition Balance, Infection Protection, Pain Management Brief Synthesis of Preadmission Screen, Post-Admission Evaluation, and Therapy Evaluations: PT and OT and ST will focus on regaining enough ambulatory function with fall risk prevention along with increasing independent ADLs and improve cognition in order to return to live independently Medical Prognosis: Guarded Anticipated Length of Stay: 14 days DUNG KEYS DO Jul 20, 2020 06:38
--- NOTE | 2020-07-20 06:39 | PM&R Progress Note ---
Subjective HPI/CC On Admission Date Seen by Provider: Jul 20, 2020 Time Seen by Provider: 11:30 Subjective/Events-last exam 07/20/2020: Patient doing really well Dramatic improvement Vision loss will be a challenge Visiting with friends No pain is reported 07/19/20: Patient doing really well Denies any new issues Denies any pain Peripheral vision is definitely restriction We will get BiPAP set up by RT Hemoglobin 10.2 Tylenol will be given for right-sided headache Had a small bowel movement but will give laxatives Review of Systems General: Fatigue, Malaise HEENT: Visual Changes Neurological: Weakness, Incoordination Objective Exam Vital Signs Vital Signs Date Time Temp Pulse Resp B/P (MAP) Pulse Ox O2 Delivery O2 Flow Rate FiO2 07/20/20 20:00 96 Room Air 07/20/20 20:00 36.7 80 16 138/63 (88) Capillary Refill : General Appearance: No Apparent Distress, WD/WN, Chronically ill HEENT: PERRL/EOMI, Normal ENT Inspection, Pharynx Normal Neck: Full Range of Motion, Normal Inspection, Non Tender, Supple, Carotid Bruit Respiratory: Chest Non Tender, Lungs Clear, Normal Breath Sounds, No Accessory Muscle Use, No Respiratory Distress Cardiovascular: Regular Rate, Rhythm, No Edema, No Gallop, No JVD, No Murmur, Normal Peripheral Pulses Gastrointestinal: Normal Bowel Sounds, No Organomegaly, No Pulsatile Mass, Non Tender, Soft Back: Normal Inspection, No CVA Tenderness, No Vertebral Tenderness Extremity: Normal Capillary Refill, Normal Inspection, Normal Range of Motion, Non Tender, No Calf Tenderness, No Pedal Edema Neurologic/Psychiatric: Alert, Oriented x3, Normal Mood/Affect, Abnormal Gait, Motor Weakness (left sided 3/5-4/5) Skin: Normal Color, Warm/Dry Lymphatic: No Adenopathy Results/Procedures Lab Patient resulted labs reviewed. FIM Transfers Therapy Code Descriptions/Definitions Functional [place] Measure: 0=Not Assessed/NA 4=Minimal Assistance 1=Total Assistance 5=Supervision or Setup 2=Maximal Assistance 6=Modified [place] 3=Moderate Assistance 7=Complete IndependenceSCALE: Activities may be completed with or without assistive devices. 2-Jwfzadwoku-snulsvx completes the activity by him/herself with no assistance from a helper. 5-Set-up or Clean-up Assistance-helper sets up or cleans up; patient completes activity. [place] assists only prior to or following the activity. 4-Supervision or Touching Assistance-helper provides verbal cues and/or touching/steadying and/or contact guard assistance as patient completes activity. Assistance may be provided throughout the activity or intermittently. 3-Partial/Moderate Assistance-helper does LESS THAN HALF the effort. [place] lifts, holds or supports trunk or limbs, but provides less than half the effort. 2-Substantial/Maximal Assistance-helper does MORE THAN HALF the effort. [place] lifts or holds trunk or limbs and provides more than half the effort. 7-Atiikdxuj-qdzibu does ALL the effort. Patient does none of the effort to complete the activity. Or, the assistance of 2 or more helpers is required for the patient to complete the activity. If activity was not attempted, code reason: 7-Patient Refused. 9-Not Applicable-not attempted and the patient did not perform the activity befo re the current illness, exacerbation or injury. 10-Not Attempted due to Environmental Limitations-(lack of equipment, weather re straints, etc.). 88-Not Attempted due to Medical Conditions or Safety Concerns. Roll Left to Right (QC): 6 Sit to Lying (QC): 6 Sit to Stand (QC): 4 (skilled cues for hand placment 50% of the time. ) Chair/Hed-zb-Lcshh Xfer(QC): 4 Car Transfer (QC): 4 Gait Training Does the Patient Walk?: Yes Walk 10 feet (QC): 4 Walk 50 ft with 2 Turns(QC): 4 Walk 150 ft (QC): 4 Walking 10ft/uneven surface-QC: 4 Gait Assistive Device: FWW Wheelchair Training Does the Pt Use a Wheelchair?: No Wheel 50 ft with 2 turns (QC): 9 Wheel 150 ft (QC): 9 Stair Training #of Steps: 4 1 Step (curb) (QC): 4 4 Steps (QC): 4 (use of B handrail; SBA with intermittent cues for safety. Reciprocal gait pattern.) 12 Steps (QC): 88 Balance Picking up an Object (QC): 3 ADL-Treatment Eating (QC): 88 Oral Hygiene (QC): 4 Shower/Bathe Self (QC): 4 Upper Body Dressing (QC): 4 Lower Body Dressing (QC): 4 On/Off Footwear (QC): 4 Toileting Hygiene (QC): 4 Toilet Transfer (QC): 4 Assessment/Plan Assessment and Plan Assess & Plan/Chief Complaint Assessment: CVA with left sided weakness and peripheral vision loss s/p TVAR 2 weeks ago [place] h/o massive PE holding Xarelto for 4 weeks ABIGAIL on biPAP Cochlear implant GERD IBS RLS Plan: IRF protocol Fall risk Monitor GERD Cardiology consultation 07/19/2020: Appreciate cardiology consultation Monitor closely No anticoagulation for 2 more weeks Fall risk Monitor closely 07/20/2020: Dramatic improvement Appreciate cardiology management Monitor closely (1) CVA (cerebral vascular accident) (2) Status post aortic valve replacement (3) ABIGAIL (obstructive sleep apnea) (4) Aortic stenosis (5) Carotid arterial disease (6) Hx pulmonary embolism Status: Chronic (7) Cochlear implant in place Status: Chronic (8) RLS (restless legs syndrome) Status: Chronic (9) GERD (gastroesophageal reflux disease) Status: Chronic (10) Status post total hip replacement, right DUNG KEYS DO Jul 20, 2020 06:39
[2020-07-20 08:00] VITALS: BP 134/63
[2020-07-20] MEDS: CALCIUM CARBONATE 600 MG (CALCARB) TAB PO SCH (08:13)
--- NOTE | 2020-07-20 08:14 | Occupational Ther Daily Note ---
OT Current Status-Daily Note Subjective Pt alert, sitting in recliner. Pt agrees to therapy. Pt c/o R shldr pain, with movement and exercise pain decreased. Mental Status/Objective Patient Orientation: Person, Place, Time, Situation Attachments: Other-See Comments (cochlear implant) ADL-Treatment Pt declined shower, changing clothing, toileting and oral care. Pt able to open containers/packages then uses regular utensils to eat. Therapy Code Descriptions/Definitions Functional [place] Measure: 0=Not Assessed/NA 4=Minimal Assistance 1=Total Assistance 5=Supervision or Setup 2=Maximal Assistance 6=Modified [place] 3=Moderate Assistance 7=Complete IndependenceSCALE: Activities may be completed with or without assistive devices. 3-Yaaklmltuz-mgjtnmp completes the activity by him/herself with no assistance from a helper. 5-Set-up or Clean-up Assistance-helper sets up or cleans up; patient completes activity. [place] assists only prior to or following the activity. 4-Supervision or Touching Assistance-helper provides verbal cues and/or touch ing/steadying and/or contact guard assistance as patient completes activity. Assistance may be provided throughout the activity or intermittently. 3-Partial/Moderate Assistance-helper does LESS THAN HALF the effort. [place] lifts, holds or supports trunk or limbs, but provides less than half the effort. 2-Substantial/Maximal Assistance-helper does MORE THAN HALF the effort. [place] lifts or holds trunk or limbs and provides more than half the effort. 7-Ouhiaifbs-xzhcxl does ALL the effort. Patient does none of the effort to complete the activity. Or, the assistance of 2 or more helpers is required for the patient to complete the activity. If activity was not attempted, code reason: 7-Patient Refused. 9-Not Applicable-not attempted and the patient did not perform the activity before the current illness, exacerbation or injury. 10-Not Attempted due to Environmental Limitations-(lack of equipment, weather restraints, etc.). 88-Not Attempted due to Medical Conditions or Safety Concerns. Eating (QC): 6 Other Treatment Pt ambulated with SBA for safety using FWW to therapy gym. Pt complete B UE exercises in standing to work on strengthening, balance and activity tolerance for daily functional tasks. Arm bike completed 3x 2min each in standing with minimal resistance with recovery breaks between each 2 min. Pt then completed sequencing and sorting tasks in standing using B UE for ~4 min each time. Pt then ambulated over 100ft around ARU then back to room. At end of session, pt sitting in recliner with feet elevated and phone/call light in reach. All needs met in room. OT Short Term Goals Short Term Goals Time Frame: Jul 26, 2020 Eatin Oral hygiene: 5 Toileting hygiene: 4 Shower/bathe self: 4 Upper body dressin Lower body dressin Putting on/taking off footwear: 4 OT Sorting Cows Worker Goals Sorting Cows Worker Goals Time Frame: Aug 02, 2020 Eating (QC): 6 Oral Hygiene (QC): 6 Toileting Hygiene (QC): 6 Shower/Bathe Self (QC): 4 Upper Body Dressing (QC): 5 Lower Body Dressing (QC): 5 On/Off Footwear (QC): 6 Additional Goals: 1-Demonstrate ADL Tasks, 2-Verbalize Understanding, 3- ImproveStrength/Priya 1=Demonstrate adherence to instructed precautions during ADL tasks. 2=Patient will verbalize/demonstrate understanding of assistive devices/modifications for ADL. 3=Patient will improve strength/tolerance for activity to enable patient to perform ADL's. OT Education/Plan Problem List/Assessment Assessment: Decreased Activ Tolerance, Decreased UE Strength, Impaired Funct Balance Discharge Recommendations Plan/Recommendations: Continue POC Treatment Plan/Plan of Care Patient would benefit from OT for education, treatment and training to promote independence in ADL's, mobility, safety and/or upper extremity function for ADL's. Plan of Care: ADL Retraining, Functional Mobility, UE Funct Exercise/Act Treatment Duration: Aug 02, 2020 Frequency: At least 5 of 7 days/Wk (IRF) Estimated Hrs Per Day: 1.5 hours per day Agreement: Yes Rehab Potential: Good Time/GCodes Start Time: 07:15 Stop Time: 08:15 Total Time Billed (hr/min): 60 Billed Treatment Time 1 visit-EX 3 (50 min) ADL 1 (10 min) KEITH GRANADOS Jul 20, 2020 08:14
[2020-07-20] MEDS: DOCUSATE SODIUM 100 MG (COLACE) CAP PO SCH ×2 (08:15→20:45)
[2020-07-20] MEDS: SENNA W/DOCUSATE (SENOKOT S) TABLET PO SCH ×2 (08:15→20:45)
[2020-07-20] MEDS: polyethylene glycoL POWDER 17 GM (MIRALAX) PACK PO SCH ×2 (08:15→20:45)
[2020-07-20] MEDS: ASPIRIN E.C. 81 MG (ECOTRIN) TAB PO SCH (08:17)
--- NOTE | 2020-07-20 08:31 | Speech Therapy Daily Note ---
Speech Daily Progress Note Subjective Date Seen by Provider: Jul 20, 2020 Time Seen by Provider: 00:30 Patient was resting in her recliner following her OT session. She was alert and participated well with therapy. Objective Patient completed a series of memory task with 80% correct after 5 minutes and 75% after 15 minutes with 10% verbal cues. Assessment Assessment Current Status: Good Progress Treatment Plan Continue Plan of Care Speech Short Term Goals Short Term Goals Short Term Goals 1) Patient will complete memory tasks related to her daily needs at 90% or greater with minimal cues. 2) Patient will complete safety awareness tasks related to her daily needs at 90% or greater with minimal cues. 3) Patient will complete problem solving tasks related to her daily needs at 90% or greater with minimal cues. Speech Skilled Nursing Goals Agency Sales Director Goals Patient will improve her cognitive-communication abilities in order to complete daily living tasks with minimal assist. Speech-Plan Patient/Family Goals Patient/Family Goals: Patient plans on returning to her home where she lives alone. She has two daughters that will assist her until the end of July. Treatment Plan Speech Therapy Treatment Plan: Continue Plan of Care Treatment Duration: Aug 03, 2020 Frequency: 4 times per week (Patient will receive skilled ST 4-5x per week) Estimated Hrs Per Day: .5 hour per day Rehab Potential: Good Barriers to Learning: Patient's recent heart surgery/CVA, age Pt/Family Agrees to Plan: Yes Safety Risks/Education Teaching Recipient: Patient Teaching Methods: Demonstration, Discussion Response to Teaching: Verbalize Understanding, Return Demonstration Education Topics Provided: Continued safety within her room, communication of wants/needs Time Speech Therapy Time In: 08:30 Speech Therapy Time Out: 09:00 Total Billed Time: 30 Billed Treatment Time 1, KINZA Blair Jul 20, 2020 08:31
--- NOTE | 2020-07-20 09:23 | Progress Note - Cardiology ---
Cardiology SOAP Progress Note Objective: I&O/Vital Signs 07/24/20 07/24/20 07:48 08:25 Temp 36.7 Pulse 80 Resp 16 B/P (MAP) 114/58 (76) Pulse Ox 95 O2 Delivery Room Air Room Air Weight (Pounds): 174 Weight (Ounces): 12.8 Weight (Calculated Kilograms): 79.443206 Constitutional: AAO x 3, well-developed, well-nourished Respiratory: No accessory muscle use, No respiratory distress; chest expansion is symmetric, chest is bilaterally symmetric, lungs clear to auscultation Cardiovascular: regular rate-rhythm; No JVD; S1 and S2, systolic murmur Gastrointestional: No tender; soft, round Extremities: no lower extremity edema bilateral Neurologic/Psychiatric: other (left sided neglect; RUE and RLE 5/5; LUE and LLE 4/5) Skin: No rash on exposed areas, No ulcerations on exposed areas Results/Procedures: Labs A/P: Assessment: CVA post TAVR in June 2020 treated with R MCA thromboembolectomy at [place], [place], with improvement but not complete resolution of L-sided weakness and R-sided gaze preference Aortic stenosis - Echocardiography of 08/2019 has previously determined an ejection fraction of 55% to 65% and aortic valve area of 0.6 squared cm and a mean gradient across the aortic valve of 44 mmHg. - Cardiac cath of Dec 27, 2019 showed - No significant coronary artery disease. Normal right heart pressures without evidence of intracardiac shunt. Aortic root angiography showed calcification and diminished excursion of aortic valve leaflets and mild to mod aortic regurgitation - Consultation with Dr Lopez at [facility] in Jan 2020: pt states she was advised to wait on AVR because she has no symptoms - S/P TAVR by Dr. Chang at [facility] June 2020 - subsquent CVA requiring transfer to [facility] neurology for thromboembolectomy by Dr. Ornelas (neuro-surgery) and Dr. De Santiago (neurologist) - per daughters report (records not available) Right superficial femoral artery pseudoaneursym after cardiac cath of Dec 27, 2019, treated with thrombin injection by Dr. Diaz at [facility] Symptoms of leg claudication, but segmental pressure in Nov 2018 did not show any significant PAD Mild leg swelling, likely r/t venous insuff H/o acute resp failure d/t massive pulm embolism, treated with thrombolysis and mech vent in early April 2017, subsequently treated with rivaroxaban Bipolar R hemiarthroplasty on 02-04-2017 for R hip fracture d/t a non-syncopal fall Mild ABIGAIL on sleep study of 03-11-2018 Minimal carotid dz on u/s of 05-06-2018 Hardness of hearing Plan: Request records from [facility] Continue current medication regimen Monitor lab We would like to thank Dr. Mcintosh for this consult Further recs will be based on her course CINDY BLACKWOOD Jul 20, 2020 09:23
--- NOTE | 2020-07-20 10:06 | Physical Therapy Daily Note ---
PT Daily Note-Current Subjective Pt agreeable to PT. No complaints. Mental Status Patient Orientation: Person, Place, Time, Situation Transfers SCALE: Activities may be completed with or without assistive devices. 6-Inehnmajeg-sbjtvdp completes the activity by him/herself with no assistance from a helper. 5-Set-up or Clean-up Assistance-helper sets up or cleans up; patient completes activity. [place] assists only prior to or following the activity. 4-Supervision or Touching Assistance-helper provides verbal cues and/or touchin g/steadying and/or contact guard assistance as patient completes activity. Assistance may be provided throughout the activity or intermittently. 3-Partial/Moderate Assistance-helper does LESS THAN HALF the effort. [place] lifts, holds or supports trunk or limbs, but provides less than half the effort. 2-Substantial/Maximal Assistance-helper does MORE THAN HALF the effort. [place] lifts or holds trunk or limbs and provides more than half the effort. 5-Akyezceyj-gqivmu does ALL the effort. Patient does none of the effort to complete the activity. Or, the assistance of 2 or more helpers is required for the patient to complete the activity. If activity was not attempted, code reason: 7-Patient Refused. 9-Not Applicable-not attempted and the patient did not perform the activity before the current illness, exacerbation or injury. 10-Not Attempted due to Environmental Limitations-(lack of equipment, weather restraints, etc.). 88-Not Attempted due to Medical Conditions or Safety Concerns. Sit to Stand (QC): 4 (Intermittent cues for sequencing and safety.) Toilet Transfer (QC): 4 (transfer, pericare and clothing managment all with sBA. ) Gait Training Walk 150 ft (QC): 4 Gait Assistive Device: FWW 200 ft x 4 with FWW with SBA. Slight pull left during gait but able to self correct. Stair Training 4 Steps (QC): 4 (SBA with reciprocal gait. ) Exercises NuStep Minutes: 15 Neuromuscular Functional balance training static and dynamic with sidestepping, heel toe and retrogait; static on uneven surface with feet apart and together all with SBA. Assessment Current Status: Good Progress Progressing well with strength and mobiltiy; balance progressing as well; able to manage all balance activities without outside support other than SBA. PT Short Term Goals Short Term Goals Time Frame: Jul 25, 2020 Roll Left & Right: 6 Sit to lyin Lying to sitting on side of be: 6 Sit to stand: 5 Chair/mlw-wx-yfdpk transfer: 5 Walk 10 feet: 5 Walk 50 feet with two turns: 5 Walk 150 feet: 5 PT Specialist Physician Goals Skilled Nursing Goals PT Skilled Nursing Goals Time Frame: Aug 08, 2020 Roll Left & Right (QC): 6 Sit to Lying (QC): 6 Lying-Sitting on Side/Bed(QC): 6 Sit to Stand (QC): 6 Chair/Iqf-tq-Eknao Xfer(QC): 6 Toilet Transfer (QC): 6 Car Transfer (QC): 6 Does the Patient Walk: Yes Walk 10 feet (QC): 6 Walk 50ft with 2 Turns (QC): 6 Walk 150 ft (QC): 6 Walking 10ft on Uneven Surface: 6 1 Step (curb) (QC): 5 4 Steps (QC): 5 12 Steps (QC): 5 Picking up an Object (QC): 5 Wheel 50 feet with 2 turns (QC: 9 Wheel 150 feet: 9 PT Plan Problem List Problem List: Activity Tolerance, Functional Strength, Safety, Balance, Gait, Transfer, Bed Mobility Treatment/Plan Treatment Plan: Continue Plan of Care Treatment Plan: Bed Mobility, Education, Functional Activity Priya, Functional Strength, Group Therapy, Gait, Safety, Therapeutic Exercise, Transfers Treatment Duration: Aug 08, 2020 Frequency: At least 5 of 7 days/Wk (IRF) Estimated Hrs Per Day: 1.5 hours per day Patient and/or Family Agrees t: Yes Safety Risks/Education Patient Education: Transfer Techniques, Safety Issues Teaching Recipient: Patient Teaching Methods: Discussion Response to Teaching: Reinforcement Needed Discharge Recommendations Therapy Discharge Recommendati: Post Acute PT Time/GCodes Time In: 900 Time Out: 958 Total Billed Treatment Time: 58 Total Billed Treatment visit NM 25 GT 18 EX 15 KEITH ALANIZ PT Jul 20, 2020 10:06
--- NOTE | 2020-07-20 12:24 | Progress Note - Cardiology ---
Cardiology SOAP Progress Note Subjective: No cp or palp or syncope No n/v/d Gen malaise and weakness are improving No shortness of breath Objective: I&O/Vital Signs 07/20/20 07/20/20 08:00 09:18 Temp 36.9 Pulse 76 Resp 16 B/P (MAP) 134/63 (86) Pulse Ox 96 95 O2 Delivery Room Air Room Air Weight (Pounds): 174 Weight (Ounces): 12.8 Weight (Calculated Kilograms): 79.909370 Constitutional: AAO x 3, well-developed, well-nourished Respiratory: No accessory muscle use, No respiratory distress; chest expansion is symmetric, chest is bilaterally symmetric, lungs clear to auscultation Cardiovascular: regular rate-rhythm; No JVD; S1 and S2, systolic murmur Gastrointestional: No tender; soft, round Extremities: no lower extremity edema bilateral Neurologic/Psychiatric: other (left sided neglect; RUE and RLE 5/5; LUE and LLE 4/5) Skin: No rash on exposed areas, No ulcerations on exposed areas Results/Procedures: Labs Laboratory Tests 07/19/20 05:18 A/P: Assessment: 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 - Cardiac cath of Dec 27, 2019 showed - No significant coronary artery disease. Normal right heart pressures without evidence of intracardiac shunt. Aortic root angiography showed calcification and diminished excursion of aortic valve leaflets and mild to mod aortic regurgitation - Consultation with Dr Lopez at [facility] in Jan 2020: pt states she was advised to wait on AVR because she has no symptoms - S/P TAVR by Dr. Chang at [facility] June 2020 - subsquent CVA requiring transfer to [facility] neurology for thromboembolectomy by Dr. Ornelas (neuro-surgery) and Dr. De Santiago (neurologist) - per daughters report (records not available) Right superficial femoral artery pseudoaneursym after cardiac cath of Dec 27, 2019, treated with thrombin injection by Dr. Diaz at [facility] Symptoms of leg claudication, but segmental pressure in Nov 2018 did not show any significant PAD Mild leg swelling, likely r/t venous insuff H/o acute resp failure d/t massive pulm embolism, treated with thrombolysis and mech vent in early April 2017, subsequently treated with rivaroxaban Bipolar R hemiarthroplasty on 02-04-2017 for R hip fracture d/t a non-syncopal fall Mild ABIGAIL on sleep study of 03-11-2018 Minimal carotid dz on u/s of 05-06-2018 Hardness of hearing Plan: Monitor labs Continue cardiac regimen LAYLA ELLISON MD FACP FAC CCDS Jul 20, 2020 12:24
--- NOTE | 2020-07-20 14:25 | Therapy Group Daily Note ---
Therapy Daily Group Note Patient Education Topic Other List Below (transfers, hospital bed education) Exercises LE Seated Exercise, UE Exercise Session Ratio (pt:therapist): 6:2 Goal of Session: UE/LE Strengthing, Safety with Transfers Goal Met for this Session: Yes Pt Benefit of Group: Contributions to Others, Increased Functional Safety, Increased Functional Strength, Improved Cognition, Recognition of Peers, Socialization Other/Notes Using FWW, pt ambulated to OT/PT group at [facility]. Group consisted of introductions(name, place born, first memory), socialization, B UE/LE exercises and education on safe transfers/hospital bed. Pt introduced self appropriately and actively listened to peers. Pt able to complete B UE/LE seated exercises with only verbal cues for correct technique. Pt acknowledged understanding of educational topics by giving own examples. 5 words given for memory task-dog, aileen, 6, burrito, guitar. After session, pt lying in bed with call light/phone in reach. All needs met in room. Start Time: 13:00 Stop Time: 14:00 Total Billed Treatment Time: 60 Total Billed Treatment 1-GRP KEITH GRANADOS Jul 20, 2020 14:25
[2020-07-20 20:00] VITALS: BP 138/63
[2020-07-21] MEDS: PANTOPRAZOLE 20 MG TABLET (PROTONIX) PO SCH (05:02)
[2020-07-21] MEDS: MULTIVIT W/MINERALS TAB (THERAGRAN M) PO SCH (05:02)
[2020-07-21] MEDS: ACETAMINOPHEN 325 MG TABLET PO PRN ×2 (05:04→12:29)
[2020-07-21 07:23] VITALS: BP 140/63
--- NOTE | 2020-07-21 07:45 | PM&R Progress Note ---
Subjective HPI/CC On Admission Date Seen by Provider: Jul 21, 2020 Time Seen by Provider: 12:00 Subjective/Events-last exam 07/21/2020: Patient doing very well Bowels are moving Headache is mostly right-sided Has plenty of visitors Overall much improved Peripheral vision is an issue 07/20/2020: Patient doing really well Dramatic improvement Vision loss will be a challenge Visiting with friends No pain is reported 07/19/20: Patient doing really well Denies any new issues Denies any pain Peripheral vision is definitely restriction We will get BiPAP set up by RT Hemoglobin 10.2 Tylenol will be given for right-sided headache Had a small bowel movement but will give laxatives Review of Systems General: Fatigue HEENT: Visual Changes Neurological: Weakness, Incoordination Objective Exam Vital Signs Vital Signs Date Time Temp Pulse Resp B/P (MAP) Pulse Ox O2 Delivery O2 Flow Rate FiO2 07/21/20 10:08 95 Room Air 07/21/20 07:23 37.3 88 18 140/63 (88) Capillary Refill : General Appearance: No Apparent Distress, WD/WN, Chronically ill HEENT: PERRL/EOMI, Normal ENT Inspection, Pharynx Normal Neck: Full Range of Motion, Normal Inspection, Non Tender, Supple, Carotid Bruit Respiratory: Chest Non Tender, Lungs Clear, Normal Breath Sounds, No Accessory Muscle Use, No Respiratory Distress Cardiovascular: Regular Rate, Rhythm, No Edema, No Gallop, No JVD, No Murmur, Normal Peripheral Pulses Gastrointestinal: Normal Bowel Sounds, No Organomegaly, No Pulsatile Mass, Non Tender, Soft Back: Normal Inspection, No CVA Tenderness, No Vertebral Tenderness Extremity: Normal Capillary Refill, Normal Inspection, Normal Range of Motion, Non Tender, No Calf Tenderness, No Pedal Edema Neurologic/Psychiatric: Alert, Oriented x3, Normal Mood/Affect, Abnormal Gait, Motor Weakness (left sided 3/5-4/5) Skin: Normal Color, Warm/Dry Lymphatic: No Adenopathy Results/Procedures Lab Patient resulted labs reviewed. FIM Transfers Therapy Code Descriptions/Definitions Functional [place] Measure: 0=Not Assessed/NA 4=Minimal Assistance 1=Total Assistance 5=Supervision or Setup 2=Maximal Assistance 6=Modified Lowgap 3=Moderate Assistance 7=Complete IndependenceSCALE: Activities may be completed with or without assistive devices. 9-Unvuxenroq-ghcgzlw completes the activity by him/herself with no assistance from a helper. 5-Set-up or Clean-up Assistance-helper sets up or cleans up; patient completes activity. [place] assists only prior to or following the activity. 4-Supervision or Touching Assistance-helper provides verbal cues and/or touching/steadying and/or contact guard assistance as patient completes activity. Assistance may be provided throughout the activity or intermittently. 3-Partial/Moderate Assistance-helper does LESS THAN HALF the effort. [place] lifts, holds or supports trunk or limbs, but provides less than half the effort. 2-Substantial/Maximal Assistance-helper does MORE THAN HALF the effort. [place] lifts or holds trunk or limbs and provides more than half the effort. 9-Lfmrkuzsn-rqcfci does ALL the effort. Patient does none of the effort to complete the activity. Or, the assistance of 2 or more helpers is required for the patient to complete the activity. If activity was not attempted, code reason: 7-Patient Refused. 9-Not Applicable-not attempted and the patient did not perform the activity before the current illness, exacerbation or injury. 10-Not Attempted due to Environmental Limitations-(lack of equipment, weather restraints, etc.). 88-Not Attempted due to Medical Conditions or Safety Concerns. Roll Left to Right (QC): 6 Sit to Lying (QC): 6 Sit to Stand (QC): 4 (Intermittent cues for sequencing and safety.) Chair/Myk-kk-Kfspr Xfer(QC): 4 Car Transfer (QC): 4 Gait Training Does the Patient Walk?: Yes Walk 10 feet (QC): 4 Walk 50 ft with 2 Turns(QC): 4 Walk 150 ft (QC): 4 Walking 10ft/uneven surface-QC: 4 Gait Assistive Device: FWW Wheelchair Training Does the Pt Use a Wheelchair?: No Wheel 50 ft with 2 turns (QC): 9 Wheel 150 ft (QC): 9 Stair Training #of Steps: 4 1 Step (curb) (QC): 4 4 Steps (QC): 4 (SBA with reciprocal gait. 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 s/p TVAR 2 weeks ago [place] h/o massive PE holding Xarelto for 4 weeks ABIGAIL on biPAP Cochlear implant GERD IBS RLS Plan: IRF protocol Fall risk Monitor GERD Cardiology consultation 07/19/2020: Appreciate cardiology consultation Monitor closely No anticoagulation for 2 more weeks Fall risk Monitor closely 07/20/2020: Dramatic improvement Appreciate cardiology management Monitor closely 07/21/2020: Monitor for falls Tylenol for headache Doing very well (1) CVA (cerebral vascular accident) (2) Status post aortic valve replacement (3) ABIGAIL (obstructive sleep apnea) (4) Aortic stenosis (5) Carotid arterial disease (6) Hx pulmonary embolism Status: Chronic (7) Cochlear implant in place Status: Chronic (8) RLS (restless legs syndrome) Status: Chronic (9) GERD (gastroesophageal reflux disease) Status: Chronic (10) Status post total hip replacement, right DUNG KEYS DO Jul 21, 2020 07:45
[2020-07-21] MEDS: CALCIUM CARBONATE 600 MG (CALCARB) TAB PO SCH (08:13)
[2020-07-21] MEDS: SENNA W/DOCUSATE (SENOKOT S) TABLET PO SCH ×2 (08:13→19:19)
[2020-07-21] MEDS: ASPIRIN E.C. 81 MG (ECOTRIN) TAB PO SCH (08:13)
[2020-07-21] MEDS: polyethylene glycoL POWDER 17 GM (MIRALAX) PACK PO SCH ×2 (08:13→19:19)
[2020-07-21] MEDS: DOCUSATE SODIUM 100 MG (COLACE) CAP PO SCH ×2 (08:13→19:19)
--- NOTE | 2020-07-21 11:34 | Physical Therapy Daily Note ---
PT Daily Note-Current Subjective Pt sitting in recliner upon arrival. Pt agrees to PT tx. Pain Numeric Pain Scale: 0-No Pain Location: No Pain Reported Mental Status Patient Orientation: Normal For Age Transfers SCALE: Activities may be completed with or without assistive devices. 5-Sudmanvraz-mvyzfah completes the activity by him/herself with no assistance from a helper. 5-Set-up or Clean-up Assistance-helper sets up or cleans up; patient completes activity. [place] assists only prior to or following the activity. 4-Supervision or Touching Assistance-helper provides verbal cues and/or touching/steadying and/or contact guard assistance as patient completes activity. Assistance may be provided throughout the activity or intermittently. 3-Partial/Moderate Assistance-helper does LESS THAN HALF the effort. [place] lifts, holds or supports trunk or limbs, but provides less than half the effort. 2-Substantial/Maximal Assistance-helper does MORE THAN HALF the effort. [place] lifts or holds trunk or limbs and provides more than half the effort. 3-Llhpmhtpn-xdgbyq does ALL the effort. Patient does none of the effort to complete the activity. Or, the assistance of 2 or more helpers is required for the patient to complete the activity. If activity was not attempted, code reason: 7-Patient Refused. 9-Not Applicable-not attempted and the patient did not perform the activity before the current illness, exacerbation or injury. 10-Not Attempted due to Environmental Limitations-(lack of equipment, weather restraints, etc.). 88-Not Attempted due to Medical Conditions or Safety Concerns. Sit to Stand (QC): 4 Toilet Transfer (QC): 4 Gait Training Does the Patient Walk?: Yes Distance: 250'x2 Walk 10 feet (QC): 4 Walk 50 ft with 2 Turns(QC): 4 Walk 150 ft (QC): 4 Gait Persons Needed: 1 Gait Assistive Device: FWW VC x2 d/t pt hitting objects w/ L side of FWW Treatments Gait training completed. Pt requests bathroom upon return to room. Pt toilet transfers using FWW w/ supervision. Pt stands unsupported to doff/don LE clothing. Pt stands unsupported at sink to wash/dry hands. Pt returns to recliner at end of tx w/ call light and bedside table w/in reach and all needs met. Assessment Current Status: Good Progress Pt motivated and positive regarding progress. Pt requires VC's 25% of the time this date for safety awareness. PT Short Term Goals Short Term Goals Time Frame: Jul 25, 2020 Roll Left & Right: 6 Sit to lyin Lying to sitting on side of be: 6 Sit to stand: 5 Chair/wue-zy-fkvxg transfer: 5 Walk 10 feet: 5 Walk 50 feet with two turns: 5 Walk 150 feet: 5 PT Assisted Goals Assisted Goals PT Assisted Goals Time Frame: Aug 08, 2020 Roll Left & Right (QC): 6 Sit to Lying (QC): 6 Lying-Sitting on Side/Bed(QC): 6 Sit to Stand (QC): 6 Chair/Gwn-hi-Pqimh Xfer(QC): 6 Toilet Transfer (QC): 6 Car Transfer (QC): 6 Does the Patient Walk: Yes Walk 10 feet (QC): 6 Walk 50ft with 2 Turns (QC): 6 Walk 150 ft (QC): 6 Walking 10ft on Uneven Surface: 6 1 Step (curb) (QC): 5 4 Steps (QC): 5 12 Steps (QC): 5 Picking up an Object (QC): 5 Wheel 50 feet with 2 turns (QC: 9 Wheel 150 feet: 9 PT Plan Problem List Problem List: Activity Tolerance, Functional Strength, Safety, Balance, Gait, Transfer, Bed Mobility, ROM Treatment/Plan Treatment Plan: Continue Plan of Care Treatment Plan: Bed Mobility, Education, Functional Activity Priya, Functional Strength, Group Therapy, Gait, Safety, Therapeutic Exercise, Transfers Treatment Duration: Aug 08, 2020 Frequency: At least 5 of 7 days/Wk (IRF) Estimated Hrs Per Day: 1.5 hours per day Patient and/or Family Agrees t: Yes Safety Risks/Education Patient Education: Gait Training, Transfer Techniques, Safety Issues Teaching Recipient: Patient Teaching Methods: Discussion Response to Teaching: Verbalize Understanding Time/GCodes Time In: 0753 Time Out: 0816 Total Billed Treatment Time: 23 Total Billed Treatment 1, GT (15m), FA (8m) RODOLFO TURNER [employer]NER FORMER Jul 21, 2020 11:34
--- NOTE | 2020-07-21 14:40 | Progress Note - Cardiology ---
Cardiology SOAP Progress Note Subjective: No cp or palp or syncope Weakness improving No n/v/d Objective: I&O/Vital Signs 07/21/20 07/21/20 07/21/20 07:23 09:00 10:08 Temp 37.3 Pulse 88 Resp 18 B/P (MAP) 140/63 (88) Pulse Ox 95 95 95 O2 Delivery Room Air Room Air Room Air Weight (Pounds): 174 Weight (Ounces): 12.8 Weight (Calculated Kilograms): 79.533413 Constitutional: AAO x 3, well-developed, well-nourished Respiratory: No accessory muscle use, No respiratory distress; chest expansion is symmetric, chest is bilaterally symmetric, lungs clear to auscultation Cardiovascular: regular rate-rhythm; No JVD; S1 and S2, systolic murmur Gastrointestional: No tender; soft, round Extremities: no lower extremity edema bilateral Neurologic/Psychiatric: other (left sided neglect; RUE and RLE 5/5; LUE and LLE 4/5) Skin: No rash on exposed areas, No ulcerations on exposed areas A/P: Assessment: 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 - Cardiac cath of Dec 27, 2019 showed - No significant coronary artery disease. Normal right heart pressures without evidence of intracardiac shunt. Aortic root angiography showed calcification and diminished excursion of aortic valve leaflets and mild to mod aortic regurgitation - Consultation with Dr Lopez at [facility] in Jan 2020: pt states she was advised to wait on AVR because she has no symptoms - S/P TAVR by Dr. Chang at [facility] June 2020 - subsquent CVA requiring transfer to [facility] neurology for thromboembolectomy by Dr. Ornelas (neuro-surgery) and Dr. De Santiago (neurologist) - per daughters report (records not available) Right superficial femoral artery pseudoaneursym after cardiac cath of Dec 27, 2019, treated with thrombin injection by Dr. Diaz at [facility] Symptoms of leg claudication, but segmental pressure in Nov 2018 did not show any significant PAD Mild leg swelling, likely r/t venous insuff H/o acute resp failure d/t massive pulm embolism, treated with thrombolysis and mech vent in early April 2017, subsequently treated with rivaroxaban Bipolar R hemiarthroplasty on 02-04-2017 for R hip fracture d/t a non-syncopal fall Mild ABIGAIL on sleep study of 03-11-2018 Minimal carotid dz on u/s of 05-06-2018 Hardness of hearing Plan: Monitor labs Continue cardiac regimen LAYLA ELLISON MD FACP FAC CCDS Jul 21, 2020 14:40
[2020-07-21 20:23] VITALS: BP 135/63
[2020-07-22] MEDS: ACETAMINOPHEN 325 MG TABLET PO PRN ×2 (02:42→08:19)
[2020-07-22] MEDS: MULTIVIT W/MINERALS TAB (THERAGRAN M) PO SCH (05:26)
[2020-07-22 07:04] VITALS: BP 133/62
[2020-07-22] MEDS: CALCIUM CARBONATE 600 MG (CALCARB) TAB PO SCH (08:19)
[2020-07-22] MEDS: ASPIRIN E.C. 81 MG (ECOTRIN) TAB PO SCH (08:19)
[2020-07-22] MEDS: PANTOPRAZOLE 20 MG TABLET (PROTONIX) PO SCH (08:19)
--- NOTE | 2020-07-22 08:19 | PM&R Progress Note ---
Subjective HPI/CC On Admission Date Seen by Provider: Jul 22, 2020 Time Seen by Provider: 12:30 Subjective/Events-last exam 07/22/20: Patient having no issues Oldest daughter is visiting her today No concerns per RN Ambulating well Had some loose stools holding laxatives Right facial pain is managed with Tylenol very well 07/21/2020: Patient doing very well Bowels are moving Headache is mostly right-sided Has plenty of visitors Overall much improved Peripheral vision is an issue 07/20/2020: Patient doing really well Dramatic improvement Vision loss will be a challenge Visiting with friends No pain is reported 07/19/20: Patient doing really well Denies any new issues Denies any pain Peripheral vision is definitely restriction We will get BiPAP set up by RT Hemoglobin 10.2 Tylenol will be given for right-sided headache Had a small bowel movement but will give laxatives Review of Systems General: Fatigue HEENT: Visual Changes Neurological: Weakness, Incoordination Objective Exam Vital Signs Vital Signs Date Time Temp Pulse Resp B/P (MAP) Pulse Ox O2 Delivery O2 Flow Rate FiO2 07/22/20 19:24 Room Air 07/22/20 07:04 37.0 83 18 133/62 (85) 94 Capillary Refill : General Appearance: No Apparent Distress, WD/WN, Chronically ill HEENT: PERRL/EOMI, Normal ENT Inspection, Pharynx Normal Neck: Full Range of Motion, Normal Inspection, Non Tender, Supple, Carotid Bruit Respiratory: Chest Non Tender, Lungs Clear, Normal Breath Sounds, No Accessory Muscle Use, No Respiratory Distress Cardiovascular: Regular Rate, Rhythm, No Edema, No Gallop, No JVD, No Murmur, Normal Peripheral Pulses Gastrointestinal: Normal Bowel Sounds, No Organomegaly, No Pulsatile Mass, Non Tender, Soft Back: Normal Inspection, No CVA Tenderness, No Vertebral Tenderness Extremity: Normal Capillary Refill, Normal Inspection, Normal Range of Motion, Non Tender, No Calf Tenderness, No Pedal Edema Neurologic/Psychiatric: Alert, Oriented x3, Normal Mood/Affect, Abnormal Gait, Motor Weakness (left sided 3/5-4/5) Skin: Normal Color, Warm/Dry Lymphatic: No Adenopathy Results/Procedures Lab Patient resulted labs reviewed. FIM Transfers Therapy Code Descriptions/Definitions Functional [place] Measure: 0=Not Assessed/NA 4=Minimal Assistance 1=Total Assistance 5=Supervision or Setup 2=Maximal Assistance 6=Modified [place] 3=Moderate Assistance 7=Complete IndependenceSCALE: Activities may be completed with or without assistive devices. 0-[place]-zapmkfj completes the activity by him/herself with no assistance from a helper. 5-Set-up or Clean-up Assistance-helper sets up or cleans up; patient completes activity. [place] assists only prior to or following the activity. 4-Supervision or Touching Assistance-helper provides verbal cues and/or touching/steadying and/or contact guard assistance as patient completes activity. Assistance may be provided throughout the activity or intermittently. 3-Partial/Moderate Assistance-helper does LESS THAN HALF the effort. [place] lifts, holds or supports trunk or limbs, but provides less than half the effort. 2-Substantial/Maximal Assistance-helper does MORE THAN HALF the effort. [place] lifts or holds trunk or limbs and provides more than half the effort. 4-Ibmgvoiwk-fdicyj does ALL the effort. Patient does none of the effort to complete the activity. Or, the assistance of 2 or more helpers is required for the patient to complete the activity. If activity was not attempted, code reason: 7-Patient Refused. 9-Not Applicable-not attempted and the patient did not perform the activity before the current illness, exacerbation or injury. 10-Not Attempted due to Environmental Limitations-(lack of equipment, weather restraints, etc.). 88-Not Attempted due to Medical Conditions or Safety Concerns. Roll Left to Right (QC): 6 Sit to Lying (QC): 6 Sit to Stand (QC): 4 Chair/Crj-ys-Wlskh Xfer(QC): 4 Car Transfer (QC): 4 Gait Training Does the Patient Walk?: Yes Distance: 250'x2 Walk 10 feet (QC): 4 Walk 50 ft with 2 Turns(QC): 4 Walk 150 ft (QC): 4 Walking 10ft/uneven surface-QC: 4 Gait Persons Needed: 1 Gait Assistive Device: FWW Wheelchair Training Does the Pt Use a Wheelchair?: No Wheel 50 ft with 2 turns (QC): 9 Wheel 150 ft (QC): 9 Stair Training #of Steps: 4 1 Step (curb) (QC): 4 4 Steps (QC): 4 (SBA with reciprocal gait. 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 s/p TVAR 2 weeks ago [place] h/o massive PE holding Xarelto for 4 weeks ABIGAIL on biPAP Cochlear implant GERD IBS RLS Plan: IRF protocol Fall risk Monitor GERD Cardiology consultation 07/19/2020: Appreciate cardiology consultation Monitor closely No anticoagulation for 2 more weeks Fall risk Monitor closely 07/20/2020: Dramatic improvement Appreciate cardiology management Monitor closely 07/21/2020: Monitor for falls Tylenol for headache Doing very well 07/22/2020: Dramatic improvement Monitor for pain Fall risk (1) CVA (cerebral vascular accident) (2) Status post aortic valve replacement (3) ABIGAIL (obstructive sleep apnea) (4) Aortic stenosis (5) Carotid arterial disease (6) Hx pulmonary embolism Status: Chronic (7) Cochlear implant in place Status: Chronic (8) RLS (restless legs syndrome) Status: Chronic (9) GERD (gastroesophageal reflux disease) Status: Chronic (10) Status post total hip replacement, right DUNG KEYS DO Jul 22, 2020 08:18
[2020-07-22] MEDS: SENNA W/DOCUSATE (SENOKOT S) TABLET PO SCH ×2 (08:21→19:19)
[2020-07-22] MEDS: polyethylene glycoL POWDER 17 GM (MIRALAX) PACK PO SCH ×2 (08:21→19:19)
[2020-07-22] MEDS: DOCUSATE SODIUM 100 MG (COLACE) CAP PO SCH ×2 (08:21→19:19)
--- NOTE | 2020-07-22 18:19 | Progress Note - Cardiology ---
Cardiology SOAP Progress Note Subjective: No cp or palp or syncope or shortness of breath No n/v/d Some gen malaise present Objective: I&O/Vital Signs 07/22/20 07/22/20 07:04 09:56 Temp 37.0 Pulse 83 Resp 18 B/P (MAP) 133/62 (85) Pulse Ox 94 O2 Delivery Room Air Room Air Weight (Pounds): 174 Weight (Ounces): 12.8 Weight (Calculated Kilograms): 79.541230 Constitutional: AAO x 3, well-developed, well-nourished Respiratory: No accessory muscle use, No respiratory distress; chest expansion is symmetric, chest is bilaterally symmetric, lungs clear to auscultation Cardiovascular: regular rate-rhythm; No JVD; S1 and S2, systolic murmur Gastrointestional: No tender; soft, round Extremities: no lower extremity edema bilateral Neurologic/Psychiatric: other (left sided neglect; RUE and RLE 5/5; LUE and LLE 4/5) Skin: No rash on exposed areas, No ulcerations on exposed areas A/P: Assessment: CVA post TAVR in June 2020 treated with R MCA thromboembolectomy at [place], [place], with improvement but not complete resolution of L-sided weakness and R-sided gaze preference Aortic stenosis - Echocardiography of 08/2019 has previously determined an ejection fraction of 55% to 65% and aortic valve area of 0.6 squared cm and a mean gradient across the aortic valve of 44 mmHg. - Cardiac cath of Dec 27, 2019 showed - No significant coronary artery disease. Normal right heart pressures without evidence of intracardiac shunt. Aortic root angiography showed calcification and diminished excursion of aortic valve leaflets and mild to mod aortic regurgitation - Consultation with Dr Lopez at [facility] in Jan 2020: pt states she was advised to wait on AVR because she has no symptoms - S/P TAVR by Dr. Chang at [facility] June 2020 - subsquent CVA requiring transfer to [facility] neurology for thromboembolectomy by Dr. Ornelas (neuro-surgery) and Dr. De Santiago (neurologist) - per daughters report (records not available) Right superficial femoral artery pseudoaneursym after cardiac cath of Dec 27, 2019, treated with thrombin injection by Dr. Diaz at [facility] Symptoms of leg claudication, but segmental pressure in Nov 2018 did not show any significant PAD Mild leg swelling, likely r/t venous insuff H/o acute resp failure d/t massive pulm embolism, treated with thrombolysis and mech vent in early April 2017, subsequently treated with rivaroxaban Bipolar R hemiarthroplasty on 02-04-2017 for R hip fracture d/t a non-syncopal fall Mild ABIGAIL on sleep study of 03-11-2018 Minimal carotid dz on u/s of 05-06-2018 Hardness of hearing Plan: Monitor labs Continue cardiac regimen LAYLA ELLISON MD FACP FAC CCDS Jul 22, 2020 18:19
[2020-07-22 20:00] VITALS: BP 148/92
[2020-07-23] MEDS: MULTIVIT W/MINERALS TAB (THERAGRAN M) PO SCH (05:15)
[2020-07-23 05:22] LABS: BASOPHILS % (AUTO) 0 % (0-10); EOSINOPHILS # (AUTO) 0.2 10^3/uL (0.0-0.3); EOSINOPHILS % (AUTO) 3 % (0-10); HEMATOCRIT 35 % (35-52); HEMOGLOBIN 11.2 g/dL (11.5-16.0); LYMPHOCYTES # (AUTO) 2.1 10^3/uL (1.0-4.0); LYMPHOCYTES % (AUTO) 28 % (12-44); MEAN CORPUSCULAR HEMOGLOBIN 31 pg (25-34); MEAN CORPUSCULAR HGB CONC 32 g/dL (32-36); MEAN CORPUSCULAR VOLUME 97 fL (80-99); MEAN PLATELET VOLUME 9.9 fL (9.0-12.2); MONOCYTES # (AUTO) 0.7 10^3/uL (0.0-1.0); MONOCYTES % (AUTO) 9 % (0-12); NEUTROPHILS # (AUTO) 4.3 10^3/uL (1.8-7.8); NEUTROPHILS % (AUTO) 59 % (42-75); PLATELET COUNT 216 10^3/uL (130-400); WHITE BLOOD COUNT 7.3 10^3/uL (4.3-11.0)
[2020-07-23 05:35] LABS: ALBUMIN 3.7 GM/DL (3.2-4.5); CHLORIDE 106 MMOL/L (98-107); POTASSIUM 4.6 MMOL/L (3.6-5.0); SODIUM 142 MMOL/L (135-145)
[2020-07-23 05:37] LABS: CALCIUM 9.3 MG/DL (8.5-10.1)
[2020-07-23 05:38] LABS: GLUCOSE 110 MG/DL (70-105); TOTAL PROTEIN 6.7 GM/DL (6.4-8.2)
[2020-07-23 05:39] LABS: CARBON DIOXIDE 25 MMOL/L (21-32)
[2020-07-23 05:40] LABS: BILIRUBIN,TOTAL 0.5 MG/DL (0.1-1.0)
[2020-07-23 05:41] LABS: ALKALINE PHOSPHATASE 103 U/L (40-136)
[2020-07-23 05:42] LABS: CREATININE SERUM 0.84 MG/DL (0.60-1.30); GFR ESTIMATED > 60
[2020-07-23 05:43] LABS: BUN/CREATININE RATIO 25
[2020-07-23 05:45] LABS: ALANINE AMINOTRANSFERASE 17 U/L (0-55)
--- NOTE | 2020-07-23 07:00 | PM&R Progress Note ---
Subjective HPI/CC On Admission Date Seen by Provider: Jul 23, 2020 Time Seen by Provider: 09:00 Subjective/Events-last exam 07/23/2020: Patient doing very well Bowels moved yesterday Labs okay Blood pressure good Wants to go home soon 07/22/20: Patient having no issues Oldest daughter is visiting her today No concerns per RN Ambulating well Had some loose stools holding laxatives Right facial pain is managed with Tylenol very well 07/21/2020: Patient doing very well Bowels are moving Headache is mostly right-sided Has plenty of visitors Overall much improved Peripheral vision is an issue 07/20/2020: Patient doing really well Dramatic improvement Vision loss will be a challenge Visiting with friends No pain is reported 07/19/20: Patient doing really well Denies any new issues Denies any pain Peripheral vision is definitely restriction We will get BiPAP set up by RT Hemoglobin 10.2 Tylenol will be given for right-sided headache Had a small bowel movement but will give laxatives Review of Systems General: Fatigue Objective Exam Vital Signs Vital Signs Date Time Temp Pulse Resp B/P (MAP) Pulse Ox O2 Delivery O2 Flow Rate FiO2 07/23/20 20:00 36.4 98 16 146/68 (94) 96 07/23/20 20:00 Room Air Capillary Refill : General Appearance: No Apparent Distress, WD/WN, Chronically ill HEENT: PERRL/EOMI, Normal ENT Inspection, Pharynx Normal Neck: Full Range of Motion, Normal Inspection, Non Tender, Supple, Carotid Bruit Respiratory: Chest Non Tender, Lungs Clear, Normal Breath Sounds, No Accessory Muscle Use, No Respiratory Distress Cardiovascular: Regular Rate, Rhythm, No Edema, No Gallop, No JVD, No Murmur, Normal Peripheral Pulses Gastrointestinal: Normal Bowel Sounds, No Organomegaly, No Pulsatile Mass, Non Tender, Soft Back: Normal Inspection, No CVA Tenderness, No Vertebral Tenderness Extremity: Normal Capillary Refill, Normal Inspection, Normal Range of Motion, Non Tender, No Calf Tenderness, No Pedal Edema Neurologic/Psychiatric: Alert, Oriented x3, Normal Mood/Affect, Abnormal Gait, Motor Weakness (left sided 3/5-4/5) Skin: Normal Color, Warm/Dry Lymphatic: No Adenopathy Results/Procedures Lab Patient resulted labs reviewed. FIM Transfers Therapy Code Descriptions/Definitions Functional [place] Measure: 0=Not Assessed/NA 4=Minimal Assistance 1=Total Assistance 5=Supervision or Setup 2=Maximal Assistance 6=Modified [place] 3=Moderate Assistance 7=Complete IndependenceSCALE: Activities may be completed with or without assistive devices. 0-Uacafgxlii-wxcilqs completes the activity by him/herself with no assistance from a helper. 5-Set-up or Clean-up Assistance-helper sets up or cleans up; patient completes activity. [place] assists only prior to or following the activity. 4-Supervision or Touching Assistance-helper provides verbal cues and/or touching/steadying and/or contact guard assistance as patient completes activity. Assistance may be provided throughout the activity or intermittently. 3-Partial/Moderate Assistance-helper does LESS THAN HALF the effort. [place] lifts, holds or supports trunk or limbs, but provides less than half the effort. 2-Substantial/Maximal Assistance-helper does MORE THAN HALF the effort. [place] lifts or holds trunk or limbs and provides more than half the effort. 7-Aauziswxq-qtjcvi does ALL the effort. Patient does none of the effort to complete the activity. Or, the assistance of 2 or more helpers is required for the patient to complete the activity. If activity was not attempted, code reason: 7-Patient Refused. 9-Not Applicable-not attempted and the patient did not perform the activity before the current illness, exacerbation or injury. 10-Not Attempted due to Environmental Limitations-(lack of equipment, weather restraints, etc.). 88-Not Attempted due to Medical Conditions or Safety Concerns. Roll Left to Right (QC): 6 Sit to Lying (QC): 6 Sit to Stand (QC): 4 Chair/Xbf-pn-Uwrvi Xfer(QC): 4 Car Transfer (QC): 4 Gait Training Does the Patient Walk?: Yes Distance: 250'x2 Walk 10 feet (QC): 4 Walk 50 ft with 2 Turns(QC): 4 Walk 150 ft (QC): 4 Walking 10ft/uneven surface-QC: 4 Gait Persons Needed: 1 Gait Assistive Device: FWW Wheelchair Training Does the Pt Use a Wheelchair?: No Wheel 50 ft with 2 turns (QC): 9 Wheel 150 ft (QC): 9 Stair Training #of Steps: 4 1 Step (curb) (QC): 4 4 Steps (QC): 4 (SBA with reciprocal gait. 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 s/p TVAR 2 weeks ago [place] h/o massive PE holding Xarelto for 4 weeks ABIGAIL on biPAP Cochlear implant GERD IBS RLS Plan: IRF protocol Fall risk Monitor GERD Cardiology consultation 07/19/2020: Appreciate cardiology consultation Monitor closely No anticoagulation for 2 more weeks Fall risk Monitor closely 07/20/2020: Dramatic improvement Appreciate cardiology management Monitor closely 07/21/2020: Monitor for falls Tylenol for headache Doing very well 07/22/2020: Dramatic improvement Monitor for pain Fall risk 07/23/2020: Discharge planning soon Monitor closely (1) CVA (cerebral vascular accident) (2) Status post aortic valve replacement (3) ABIGAIL (obstructive sleep apnea) (4) Aortic stenosis (5) Carotid arterial disease (6) Hx pulmonary embolism Status: Chronic (7) Cochlear implant in place Status: Chronic (8) RLS (restless legs syndrome) Status: Chronic (9) GERD (gastroesophageal reflux disease) Status: Chronic (10) Status post total hip replacement, right DUNG KEYS DO Jul 23, 2020 07:00
[2020-07-23] MEDS: ASPIRIN E.C. 81 MG (ECOTRIN) TAB PO SCH (07:53)
[2020-07-23] MEDS: CALCIUM CARBONATE 600 MG (CALCARB) TAB PO SCH (07:53)
[2020-07-23] MEDS: PANTOPRAZOLE 20 MG TABLET (PROTONIX) PO SCH (07:53)
[2020-07-23] MEDS: DOCUSATE SODIUM 100 MG (COLACE) CAP PO SCH ×2 (07:54→20:00)
[2020-07-23] MEDS: SENNA W/DOCUSATE (SENOKOT S) TABLET PO SCH ×2 (07:54→20:00)
[2020-07-23] MEDS: polyethylene glycoL POWDER 17 GM (MIRALAX) PACK PO SCH ×2 (07:54→20:00)
[2020-07-23 08:00] VITALS: BP 135/85
--- NOTE | 2020-07-23 10:10 | Speech Therapy Daily Note ---
Speech Daily Progress Note Subjective Date Seen by Provider: Jul 23, 2020 Time Seen by Provider: 00:30 Patient was resting in her chair. She states her weekend was long and boring. Objective Patient completed a series of memory tasks related to her daily routine for improved safety and independence at 90% with minimal cues. Assessment Assessment Current Status: Good Progress Treatment Plan Continue Plan of Care Speech Short Term Goals Short Term Goals Short Term Goals 1) Patient will complete memory tasks related to her daily needs at 90% or greater with minimal cues. 2) Patient will complete safety awareness tasks related to her daily needs at 90% or greater with minimal cues. 3) Patient will complete problem solving tasks related to her daily needs at 90% or greater with minimal cues. Speech Synthetic Gem Press Operator Goals Synthetic Gem Press Operator Goals Patient will improve her cognitive-communication abilities in order to complete daily living tasks with minimal assist. Speech-Plan Patient/Family Goals Patient/Family Goals: Patient plans to return to her home where she lives alone. She has two daughters who are visiting until the end of July. Treatment Plan Speech Therapy Treatment Plan: Continue Plan of Care Treatment Duration: Aug 03, 2020 Frequency: 4 times per week (Patient will receive skilled ST 4-5x per week) Estimated Hrs Per Day: .5 hour per day Rehab Potential: Good Barriers to Learning: Patient's recent CVA s/p heart surgery, age Pt/Family Agrees to Plan: Yes Safety Risks/Education Teaching Recipient: Patient Teaching Methods: Demonstration, Discussion Response to Teaching: Verbalize Understanding, Return Demonstration Education Topics Provided: Continued safety and communication Time Speech Therapy Time In: 10:00 Speech Therapy Time Out: 10:30 Total Billed Time: 30 Billed Treatment Time ELI Jacob [facility] ST Jul 23, 2020 10:09
--- NOTE | 2020-07-23 10:50 | Occupational Ther Daily Note ---
OT Current Status-Daily Note Subjective Pt seen in room, up in recliner, agreeable to OT. No pain mentioned. Appearance Alert and cooperative ADL-Treatment Pt got up from recliner with SBA and walked with SBA, FWW to bathroom to toilet. Toilet transfer SBA, using grab bars. Managed clothing and hygiene with SBA. Walked with SBA, FWW to closet to retrieve clean clothing, with verbal cues to get closer to clothing in order to prevent falls. A little difficulty finding clothing in closet. Returned to recliner SBA, FWW. Sponge bath with SBA for washing gil area. Undressed upper body without help but needed assistance to hook bra in back, reporting R hand cramps. Tomorrow will try hooking bra in front and turning it around. Donned shirt, commenting that it was not on backwards. Returned to toilet again. Undressed lower body without help and donned briefs with SBA for standing. Needed some help to button pants which were tight. At one point, pt stated that she couldn't find her brief and OT pointed out that it was in her L hand. Able to manage shoes herself. When walking to sink, she needed some verbal cues regarding avoiding items on L side of walkway. Cues for walker placement for standing at sink to brush teeth but she managed task without assistance. Pt stood at times for 3-5 minutes during ADLs, FWW, SBA. Therapy Code Descriptions/Definitions Functional [place] Measure: 0=Not Assessed/NA 4=Minimal Assistance 1=Total Assistance 5=Supervision or Setup 2=Maximal Assistance 6=Modified [place] 3=Moderate Assistance 7=Complete IndependenceSCALE: Activities may be completed with or without assistive devices. 1-Ypvgbvjhjd-grqswig completes the activity by him/herself with no assistance from a helper. 5-Set-up or Clean-up Assistance-helper sets up or cleans up; patient completes activity. [place] assists only prior to or following the activity. 4-Supervision or Touching Assistance-helper provides verbal cues and/or touching/steadying and/or contact guard assistance as patient completes activity. Assistance may be provided throughout the activity or intermittently. 3-Partial/Moderate Assistance-helper does LESS THAN HALF the effort. [place] lifts, holds or supports trunk or limbs, but provides less than half the effort. 2-Substantial/Maximal Assistance-helper does MORE THAN HALF the effort. [place] lifts or holds trunk or limbs and provides more than half the effort. 5-Ujuwznpag-ivkjri does ALL the effort. Patient does none of the effort to complete the activity. Or, the assistance of 2 or more helpers is required for the patient to complete the activity. If activity was not attempted, code reason: 7-Patient Refused. 9-Not Applicable-not attempted and the patient did not perform the activity before the current illness, exacerbation or injury. 10-Not Attempted due to Environmental Limitations-(lack of equipment, weather restraints, etc.). 88-Not Attempted due to Medical Conditions or Safety Concerns. Oral Hygiene (QC): 4 (supervision) Shower/Bathe Self (QC): 4 (SBA) Upper Body Dressing (QC): 3 (min assist with hooking bra) Lower Body Dressing (QC): 3 (min assist with buttoning pants) On/Off Footwear: 5 Toileting Hygiene (QC): 4 (SBA) Toilet Transfer (QC): 4 (SBA) Other Treatment Pt walked to gym [facility]. Worked with graded clothespins with L hand for grasping and placing, requiring several cues to find items on her left side. Able to manage grasping and pinching without assistance. Pt walked back to room, [facility], occasional cue for L sided awareness. Able to find her own room. Pt got into recliner with SBA and left up in chair, all needs met. Education OT Patient Education: Modified ADL techniques, Progress toward Goal/Update tx plan, Purpose of tx/functional activities, Safety issues Teaching Recipient: Patient Teaching Methods: Discussion Response to Teaching: Verbalize Understanding, Return Demonstration, Reinforcement Needed OT Short Term Goals Short Term Goals Time Frame: Jul 26, 2020 Eatin Oral hygiene: 5 Toileting hygiene: 4 Shower/bathe self: 4 Upper body dressin Lower body dressin Putting on/taking off footwear: 4 OT Vertical Contour Band Saw Operator Goals Vertical Contour Band Saw Operator Goals Time Frame: Aug 02, 2020 Eating (QC): 6 Oral Hygiene (QC): 6 Toileting Hygiene (QC): 6 Shower/Bathe Self (QC): 4 Upper Body Dressing (QC): 5 Lower Body Dressing (QC): 5 On/Off Footwear (QC): 6 Additional Goals: 1-Demonstrate ADL Tasks, 2-Verbalize Understanding, 3- ImproveStrength/Priya 1=Demonstrate adherence to instructed precautions during ADL tasks. 2=Patient will verbalize/demonstrate understanding of assistive devices/modifications for ADL. 3=Patient will improve strength/tolerance for activity to enable patient to perform ADL's. OT Education/Plan Discharge Recommendations Plan/Recommendations: Continue POC Treatment Plan/Plan of Care Patient would benefit from OT for education, treatment and training to promote independence in ADL's, mobility, safety and/or upper extremity function for ADL's. Plan of Care: ADL Retraining, Functional Mobility, UE Funct Exercise/Act Treatment Duration: Aug 02, 2020 Frequency: At least 5 of 7 days/Wk (IRF) Estimated Hrs Per Day: 1.5 hours per day Agreement: Yes Rehab Potential: Good Time/GCodes Start Time: 09:00 Stop Time: 10:00 Total Time Billed (hr/min): 60 Billed Treatment Time visit, 45 minutes ADL, 15 minutes neuromotor MARIZA VALDES OT Jul 23, 2020 10:50
--- NOTE | 2020-07-23 13:20 | Physical Therapy Daily Note ---
PT Daily Note-Current Subjective pt agreeable to visit but notes she feels "woozy". Mental Status Patient Orientation: Person, Place, Time, Situation Transfers SCALE: Activities may be completed with or without assistive devices. 4-Udjrxtewzo-fusqzwv completes the activity by him/herself with no assistance from a helper. 5-Set-up or Clean-up Assistance-helper sets up or cleans up; patient completes activity. [place] assists only prior to or following the activity. 4-Supervision or Touching Assistance-helper provides verbal cues and/or touching/steadying and/or contact guard assistance as patient completes activity. Assistance may be provided throughout the activity or intermittently. 3-Partial/Moderate Assistance-helper does LESS THAN HALF the effort. [place] lifts, holds or supports trunk or limbs, but provides less than half the effort. 2-Substantial/Maximal Assistance-helper does MORE THAN HALF the effort. [place] lifts or holds trunk or limbs and provides more than half the effort. 9-Tkyhdpocz-dxlsfm does ALL the effort. Patient does none of the effort to complete the activity. Or, the assistance of 2 or more helpers is required for the patient to complete the activity. If activity was not attempted, code reason: 7-Patient Refused. 9-Not Applicable-not attempted and the patient did not perform the activity before the current illness, exacerbation or injury. 10-Not Attempted due to Environmental Limitations-(lack of equipment, weather restraints, etc.). 88-Not Attempted due to Medical Conditions or Safety Concerns. Sit to Stand (QC): 4 Chair/Qgn-yj-Flbqm Xfer(QC): 4 Toilet Transfer (QC): 4 SBA with all transfers; correct sequencing and hand placement. Gait Training Does the Patient Walk?: Yes Walk 10 feet (QC): 4 Walk 50 ft with 2 Turns(QC): 4 Walk 150 ft (QC): 4 Functional gait training 200 ft x 2 with FWW with SBA. Gait training with cane with SB to CGA for safety with skilled cues and training on correct use and technique with cane. Decreased balance with cane but able to safely walk without noted LOB. Stair Training 4 Steps (QC): 4 (SBA; up/down x 2 reps) Exercises NuStep Minutes: 10 Treatments Functional gait training with walker and cane; step training and functional strengthing LE with focus on tolerance to activites. Assessment Current Status: Good Progress Progressing well. Did well with the cane but needs more training for safety. Seems tired today. PT Short Term Goals Short Term Goals Time Frame: Jul 25, 2020 Roll Left & Right: 6 Sit to lyin Lying to sitting on side of be: 6 Sit to stand: 5 Chair/nlm-tg-fgghl transfer: 5 Walk 10 feet: 5 Walk 50 feet with two turns: 5 Walk 150 feet: 5 PT Forensic Sergeant Goals Forensic Sergeant Goals PT Longterm Goals Time Frame: Aug 08, 2020 Roll Left & Right (QC): 6 Sit to Lying (QC): 6 Lying-Sitting on Side/Bed(QC): 6 Sit to Stand (QC): 6 Chair/Mtm-ab-Jwseh Xfer(QC): 6 Toilet Transfer (QC): 6 Car Transfer (QC): 6 Does the Patient Walk: Yes Walk 10 feet (QC): 6 Walk 50ft with 2 Turns (QC): 6 Walk 150 ft (QC): 6 Walking 10ft on Uneven Surface: 6 1 Step (curb) (QC): 5 4 Steps (QC): 5 12 Steps (QC): 5 Picking up an Object (QC): 5 Wheel 50 feet with 2 turns (QC: 9 Wheel 150 feet: 9 PT Plan Problem List Problem List: Activity Tolerance, Functional Strength, Safety, Balance, Gait, Transfer, Bed Mobility Treatment/Plan Treatment Plan: Continue Plan of Care Treatment Plan: Bed Mobility, Education, Functional Activity Priya, Functional Strength, Group Therapy, Gait, Safety, Therapeutic Exercise, Transfers Treatment Duration: Aug 08, 2020 Frequency: At least 5 of 7 days/Wk (IRF) Estimated Hrs Per Day: 1.5 hours per day Patient and/or Family Agrees t: Yes Safety Risks/Education Patient Education: Gait Training (with use of cane) Teaching Recipient: Patient Teaching Methods: Demonstration, Discussion Response to Teaching: Return Demonstration, Reinforcement Needed Discharge Recommendations Therapy Discharge Recommendati: Post Acute PT (HHC PT) Time/GCodes Time In: 1115 Time Out: 1208 Total Billed Treatment Time: 53 Total Billed Treatment visit EX 10 GT 43 KEITH ALANIZ PT Jul 23, 2020 13:20
--- NOTE | 2020-07-23 14:23 | Occupational Ther Daily Note ---
OT Current Status-Daily Note Subjective Pt seen in room, up in recliner, agreeable to OT. No pain mentioned. Appearance Alert, cooperative ADL-Treatment Pt needed to toilet. Walked to bathroom and transferred to toilet SBA, using grab bar. Managed clothing SBA and also standing for hygiene. Pt wanted to ch tarun clothes - she was able to change top with setup and pants with supervision. pt put pants on backwards and chose not to change them around after it was pointed out to her. Also put pants on with shoes on, making it more difficult to move feet through pants leg. Pt educ to take shoes off first. Stood at sink SBA to wash hands and easily found hand towels on L side. Stood at closet to stow dirty clothes and was able to mushroom picker pants from floor without LOB. Therapy Code Descriptions/Definitions Functional [place] Measure: 0=Not Assessed/NA 4=Minimal Assistance 1=Total Assistance 5=Supervision or Setup 2=Maximal Assistance 6=Modified [place] 3=Moderate Assistance 7=Complete IndependenceSCALE: Activities may be completed with or without assistive devices. 8-Elzjivsvca-kwpulut completes the activity by him/herself with no assistance from a helper. 5-Set-up or Clean-up Assistance-helper sets up or cleans up; patient completes activity. [place] assists only prior to or following the activity. 4-Supervision or Touching Assistance-helper provides verbal cues and/or touching/steadying and/or contact guard assistance as patient completes activity. Assistance may be provided throughout the activity or intermittently. 3-Partial/Moderate Assistance-helper does LESS THAN HALF the effort. [place] lifts, holds or supports trunk or limbs, but provides less than half the effort. 2-Substantial/Maximal Assistance-helper does MORE THAN HALF the effort. [place] lifts or holds trunk or limbs and provides more than half the effort. 8-Pkaqoakfs-zpgijy does ALL the effort. Patient does none of the effort to complete the activity. Or, the assistance of 2 or more helpers is required for the patient to complete the activity. If activity was not attempted, code reason: 7-Patient Refused. 9-Not Applicable-not attempted and the patient did not perform the activity before the current illness, exacerbation or injury. 10-Not Attempted due to Environmental Limitations-(lack of equipment, weather restraints, etc.). 88-Not Attempted due to Medical Conditions or Safety Concerns. Upper Body Dressing (QC): 5 (setup) Lower Body Dressing (QC): 4 (SBA, cues, supervision) Toileting Hygiene (QC): 4 (SBA) Toilet Transfer (QC): 4 (SBA) Other Treatment Pt walked to gym with SBA, FWW. Transferred into chair with SBA. Pt completed 10 minutes bilat UE ex on arm bike set at 20W resistance, taking two brief recovery breaks during activity. No difference noted between use of each ar. Completed nuts and bolts board with bilat hands but with board dividing visual space. Cues needed to include L hand where it was not easily visualized. Also did not find one bolt on L side, although she could see not on R side, cues to find mission bolts. Pt educ on need for intentionally finding items on L visual field. Pt walked back to room, SBA, FWW and was left up in recliner, all needs met. Education OT Patient Education: Modified ADL techniques, Progress toward Goal/Update tx plan, Purpose of tx/functional activities, Safety issues Teaching Recipient: Patient Teaching Methods: Discussion Response to Teaching: Verbalize Understanding, Return Demonstration, Reinforcement Needed OT Short Term Goals Short Term Goals Time Frame: Jul 26, 2020 Eatin Oral hygiene: 5 Toileting hygiene: 4 Shower/bathe self: 4 Upper body dressin Lower body dressin Putting on/taking off footwear: 4 OT Boat Tester Goals Residential Goals Time Frame: Aug 02, 2020 Eating (QC): 6 Oral Hygiene (QC): 6 Toileting Hygiene (QC): 6 Shower/Bathe Self (QC): 4 Upper Body Dressing (QC): 5 Lower Body Dressing (QC): 5 On/Off Footwear (QC): 6 Additional Goals: 1-Demonstrate ADL Tasks, 2-Verbalize Understanding, 3- ImproveStrength/Priya 1=Demonstrate adherence to instructed precautions during ADL tasks. 2=Patient will verbalize/demonstrate understanding of assistive devices/modifications for ADL. 3=Patient will improve strength/tolerance for activity to enable patient to perform ADL's. OT Education/Plan Discharge Recommendations Plan/Recommendations: Continue POC Treatment Plan/Plan of Care Patient would benefit from OT for education, treatment and training to promote independence in ADL's, mobility, safety and/or upper extremity function for ADL's. Plan of Care: ADL Retraining, Functional Mobility, UE Funct Exercise/Act Treatment Duration: Aug 02, 2020 Frequency: At least 5 of 7 days/Wk (IRF) Estimated Hrs Per Day: 1.5 hours per day Agreement: Yes Rehab Potential: Good Time/GCodes Start Time: 13:00 Stop Time: 13:45 Total Time Billed (hr/min): 45 Billed Treatment Time visit, 20 minutes ADL, 25 minutes exercise MARIZA VALDES OT Jul 23, 2020 14:22
[2020-07-23] MEDS ORDERED: RIVA20TA PO (15:10)
--- NOTE | 2020-07-23 17:33 | Progress Note - Cardiology ---
Cardiology SOAP Progress Note Subjective: No cp or palp or syncope No n/v/d Gen weakness is improving Objective: I&O/Vital Signs 07/23/20 07/23/20 08:00 09:41 Temp 37.0 Pulse 92 Resp 16 B/P (MAP) 135/85 (102) Pulse Ox 95 O2 Delivery Room Air Room Air Weight (Pounds): 174 Weight (Ounces): 12.8 Weight (Calculated Kilograms): 79.366937 Constitutional: AAO x 3, well-developed, well-nourished Respiratory: No accessory muscle use, No respiratory distress; chest expansion is symmetric, chest is bilaterally symmetric, lungs clear to auscultation Cardiovascular: regular rate-rhythm; No JVD; S1 and S2, systolic murmur Gastrointestional: No tender; soft, round Extremities: no lower extremity edema bilateral Neurologic/Psychiatric: other (left sided neglect; RUE and RLE 5/5; LUE and LLE 4/5) Skin: No rash on exposed areas, No ulcerations on exposed areas Results/Procedures: Labs Laboratory Tests 07/23/20 05:06: White Blood Count 7.3, Red Blood Count 3.64L, Hemoglobin 11.2L, Hematocrit 35, Mean Corpuscular Volume 97, Mean Corpuscular Hemoglobin 31, Mean Corpuscular Hemoglobin Concent 32, Red Cell Distribution Width 14.4, Platelet Count 216, Mean Platelet Volume 9.9, Immature Granulocyte % (Auto) 1, Neutrophils (%) (Auto) 59, Lymphocytes (%) (Auto) 28, Monocytes (%) (Auto) 9, Eosinophils (%) (Auto) 3, Basophils (%) (Auto) 0, Neutrophils # (Auto) 4.3, Lymphocytes # (Auto) 2.1, Monocytes # (Auto) 0.7, Eosinophils # (Auto) 0.2, Basophils # (Auto) 0.0, Immature Granulocyte # (Auto) 0.1, Sodium Level 142, Potassium Level 4.6, Chloride Level 106, Carbon Dioxide Level 25, Anion Gap 11, Blood Urea Nitrogen 21H, Creatinine 0.84, Estimat Glomerular Filtration Rate > 60, BUN/Creatinine Ratio 25, Glucose Level 110H, Calcium Level 9.3, Corrected Calcium 9.5, Total Bilirubin 0.5, Aspartate Amino Transf (AST/SGOT) 22, Alanine Aminotransferase (ALT/SGPT) 17, Alkaline Phosphatase 103, Total Protein 6.7, Albumin 3.7 Laboratory Tests 07/23/20 05:06 A/P: Assessment: 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 - Cardiac cath of Dec 27, 2019 showed - No significant coronary artery disease. Normal right heart pressures without evidence of intracardiac shunt. Aortic root angiography showed calcification and diminished excursion of aortic valve leaflets and mild to mod aortic regurgitation - Consultation with Dr Lopez at [facility] in Jan 2020: pt states she was advised to wait on AVR because she has no symptoms - S/P TAVR by Dr. Chang at [facility] June 2020 - subsquent CVA requiring transfer to [facility] neurology for thromboembolectomy by Dr. Ornelas (neuro-surgery) and Dr. De Santiago (neurologist) - per daughters report (records not available) Right superficial femoral artery pseudoaneursym after cardiac cath of Dec 27, 2019, treated with thrombin injection by Dr. Diaz at [facility] Symptoms of leg claudication, but segmental pressure in Nov 2018 did not show any significant PAD Mild leg swelling, likely r/t venous insuff H/o acute resp failure d/t massive pulm embolism, treated with thrombolysis and mech vent in early April 2017, subsequently treated with rivaroxaban Bipolar R hemiarthroplasty on 02-04-2017 for R hip fracture d/t a non-syncopal fall Mild ABIGAIL on sleep study of 03-11-2018 Minimal carotid dz on u/s of 05-06-2018 Hardness of hearing Plan: Monitor labs Continue cardiac regimen LAYLA ELLISON MD FACP FAC CCDS Jul 23, 2020 17:33
[2020-07-23 20:00] VITALS: BP 146/68
[2020-07-24] MEDS: ACETAMINOPHEN 325 MG TABLET PO PRN (03:28)
[2020-07-24] MEDS: MULTIVIT W/MINERALS TAB (THERAGRAN M) PO SCH (06:07)
[2020-07-24 07:48] VITALS: BP 114/58
[2020-07-24] MEDS: PANTOPRAZOLE 20 MG TABLET (PROTONIX) PO SCH (08:02)
[2020-07-24] MEDS: ASPIRIN E.C. 81 MG (ECOTRIN) TAB PO SCH (08:02)
[2020-07-24] MEDS: CALCIUM CARBONATE 600 MG (CALCARB) TAB PO SCH (08:02)
[2020-07-24] MEDS: DOCUSATE SODIUM 100 MG (COLACE) CAP PO SCH ×2 (08:03→20:40)
[2020-07-24] MEDS: SENNA W/DOCUSATE (SENOKOT S) TABLET PO SCH ×2 (08:03→20:40)
[2020-07-24] MEDS: polyethylene glycoL POWDER 17 GM (MIRALAX) PACK PO SCH ×2 (08:03→20:40)
--- NOTE | 2020-07-24 09:36 | Speech Therapy Daily Note ---
Speech Daily Progress Note Subjective Date Seen by Provider: Jul 24, 2020 Time Seen by Provider: 00:30 Patient sitting up in her recliner this am. She states she was sleepy but she didn't know why. Objective Patient completed general information questions with 85% given 10% cues. Assessment Assessment Current Status: Good Progress Treatment Plan Continue Plan of Care Speech Short Term Goals Short Term Goals Short Term Goals 1) Patient will complete memory tasks related to her daily needs at 90% or greater with minimal cues. 2) Patient will complete safety awareness tasks related to her daily needs at 90% or greater with minimal cues. 3) Patient will complete problem solving tasks related to her daily needs at 90% or greater with minimal cues. Speech Custodial Goals Custodial Goals Patient will improve her cognitive-communication abilities in order to complete daily living tasks with minimal assist. Speech-Plan Patient/Family Goals Patient/Family Goals: Patient hopes to return to her home this week where her two daughters are. They will be available to assist her with her daily needs until the end of July. Treatment Plan Speech Therapy Treatment Plan: Continue Plan of Care Treatment Duration: Aug 03, 2020 Frequency: 4 times per week (Patient will receive skilled ST 4-5x per week) Estimated Hrs Per Day: .5 hour per day Rehab Potential: Good Barriers to Learning: Patient's recent heart surgery and CVA, age Pt/Family Agrees to Plan: Yes Safety Risks/Education Teaching Recipient: Patient Teaching Methods: Demonstration, Discussion Response to Teaching: Verbalize Understanding, Return Demonstration Education Topics Provided: Continued safety in her room and communicating needs/wants Time Speech Therapy Time In: 08:30 Speech Therapy Time Out: 09:00 Total Billed Time: 30 Billed Treatment Time 1ELI [address] ST Jul 24, 2020 09:36
--- NOTE | 2020-07-24 10:13 | Progress Note - Cardiology ---
Cardiology SOAP Progress Note Subjective: States she feels well No c/o CP or SOB Objective: I&O/Vital Signs 07/25/20 07/25/20 08:00 09:00 Temp 37.0 Pulse 88 Resp 24 B/P (MAP) 122/56 (78) Pulse Ox 98 O2 Delivery Room Air Room Air Weight (Pounds): 174 Weight (Ounces): 12.8 Weight (Calculated Kilograms): 79.580744 Constitutional: AAO x 3, well-developed, well-nourished Respiratory: No accessory muscle use, No respiratory distress; chest expansion is symmetric, chest is bilaterally symmetric, lungs clear to auscultation Cardiovascular: regular rate-rhythm; No JVD; S1 and S2, systolic murmur Gastrointestional: No tender; soft, round Extremities: no lower extremity edema bilateral Neurologic/Psychiatric: other (left sided neglect; RUE and RLE 5/5; LUE and LLE 4/5) Skin: No rash on exposed areas, No ulcerations on exposed areas A/P: Assessment: 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 - Cardiac cath of Dec 27, 2019 showed - No significant coronary artery disease. Normal right heart pressures without evidence of intracardiac shunt. Aortic root angiography showed calcification and diminished excursion of aortic valve leaflets and mild to mod aortic regurgitation - Consultation with Dr Lopez at [facility] in Jan 2020: pt states she was advised to wait on AVR because she has no symptoms - S/P TAVR by Dr. Chang at [facility] June 2020 - subsquent CVA requiring transfer to [facility] for thromboembolectomy by Dr. Ornelas (neuro-surgery) and Dr. De Santiago (neurologist) - per daughters report (records not available) Right superficial femoral artery pseudoaneursym after cardiac cath of Dec 27, 2019, treated with thrombin injection by Dr. Diaz at [facility] Symptoms of leg claudication, but segmental pressure in Nov 2018 did not show any significant PAD Mild leg swelling, likely r/t venous insuff H/o acute resp failure d/t massive pulm embolism, treated with thrombolysis and mech vent in early April 2017, subsequently treated with rivaroxaban Bipolar R hemiarthroplasty on 02-04-2017 for R hip fracture d/t a non-syncopal fall Mild ABIGAIL on sleep study of 03-11-2018 Minimal carotid dz on u/s of 05-06-2018 Hardness of hearing Plan: Continue cardiac regimen Home today Advise out pt f/u in 2 weeks CINDY BLACKWOOD Jul 24, 2020 10:13
--- NOTE | 2020-07-24 10:53 | PM&R Progress Note ---
Subjective HPI/CC On Admission Date Seen by Provider: Jul 24, 2020 Time Seen by Provider: 11:00 Subjective/Events-last exam 07/24/2020: Patient doing really well No major concerns Was tired last night because she refused to use her BiPAP and I counseled her about that Will need CT without contrast on 08/09/2020 Discharge plan for tomorrow 07/23/2020: Patient doing very well Bowels moved yesterday Labs okay Blood pressure good Wants to go home soon 07/22/20: Patient having no issues Oldest daughter is visiting her today No concerns per RN Ambulating well Had some loose stools holding laxatives Right facial pain is managed with Tylenol very well 07/21/2020: Patient doing very well Bowels are moving Headache is mostly right-sided Has plenty of visitors Overall much improved Peripheral vision is an issue 07/20/2020: Patient doing really well Dramatic improvement Vision loss will be a challenge Visiting with friends No pain is reported 07/19/20: Patient doing really well Denies any new issues Denies any pain Peripheral vision is definitely restriction We will get BiPAP set up by RT Hemoglobin 10.2 Tylenol will be given for right-sided headache Had a small bowel movement but will give laxatives Review of Systems General: Fatigue HEENT: Visual Changes Objective Exam Vital Signs Vital Signs Date Time Temp Pulse Resp B/P (MAP) Pulse Ox O2 Delivery O2 Flow Rate FiO2 07/24/20 20:00 36.5 76 14 131/60 (83) 97 Room Air Capillary Refill : General Appearance: No Apparent Distress, WD/WN, Chronically ill HEENT: PERRL/EOMI, Normal ENT Inspection, Pharynx Normal Neck: Full Range of Motion, Normal Inspection, Non Tender, Supple, Carotid Bru it Respiratory: Chest Non Tender, Lungs Clear, Normal Breath Sounds, No Accessory Muscle Use, No Respiratory Distress Cardiovascular: Regular Rate, Rhythm, No Edema, No Gallop, No JVD, No Murmur, Normal Peripheral Pulses Gastrointestinal: Normal Bowel Sounds, No Organomegaly, No Pulsatile Mass, Non Tender, Soft Back: Normal Inspection, No CVA Tenderness, No Vertebral Tenderness Extremity: Normal Capillary Refill, Normal Inspection, Normal Range of Motion, Non Tender, No Calf Tenderness, No Pedal Edema Neurologic/Psychiatric: Alert, Oriented x3, Normal Mood/Affect, Abnormal Gait, Motor Weakness (left sided 3/5-4/5) Skin: Normal Color, Warm/Dry Lymphatic: No Adenopathy Results/Procedures Lab Patient resulted labs reviewed. FIM Transfers Therapy Code Descriptions/Definitions Functional [place] Measure: 0=Not Assessed/NA 4=Minimal Assistance 1=Total Assistance 5=Supervision or Setup 2=Maximal Assistance 6=Modified [place] 3=Moderate Assistance 7=Complete IndependenceSCALE: Activities may be completed with or without assistive devices. 6-Zeybqhbbrn-qujbjof completes the activity by him/herself with no assistance from a helper. 5-Set-up or Clean-up Assistance-helper sets up or cleans up; patient completes activity. [place] assists only prior to or following the activity. 4-Supervision or Touching Assistance-helper provides verbal cues and/or touching/steadying and/or contact guard assistance as patient completes activity. Assistance may be provided throughout the activity or intermittently. 3-Partial/Moderate Assistance-helper does LESS THAN HALF the effort. [place] lifts, holds or supports trunk or limbs, but provides less than half the effort. 2-Substantial/Maximal Assistance-helper does MORE THAN HALF the effort. [place] lifts or holds trunk or limbs and provides more than half the effort. 7-Rpazoqctd-hoytcy does ALL the effort. Patient does none of the effort to complete the activity. Or, the assistance of 2 or more helpers is required for the patient to complete the activity. If activity was not attempted, code reason: 7-Patient Refused. 9-Not Applicable-not attempted and the patient did not perform the activity before the current illness, exacerbation or injury. 10-Not Attempted due to Environmental Limitations-(lack of equipment, weather restraints, etc.). 88-Not Attempted due to Medical Conditions or Safety Concerns. Roll Left to Right (QC): 6 Sit to Lying (QC): 6 Sit to Stand (QC): 4 Chair/Vhu-yn-Geoti Xfer(QC): 4 Car Transfer (QC): 4 Gait Training Does the Patient Walk?: Yes Distance: 250'x2 Walk 10 feet (QC): 4 Walk 50 ft with 2 Turns(QC): 4 Walk 150 ft (QC): 4 Walking 10ft/uneven surface-QC: 4 Gait Persons Needed: 1 Gait Assistive Device: FWW Wheelchair Training Does the Pt Use a Wheelchair?: No Wheel 50 ft with 2 turns (QC): 9 Wheel 150 ft (QC): 9 Stair Training #of Steps: 4 1 Step (curb) (QC): 4 4 Steps (QC): 4 (SBA; up/down x 2 reps) 12 Steps (QC): 88 Balance Picking up an Object (QC): 3 ADL-Treatment Eating (QC): 6 Oral Hygiene (QC): 4 (supervision) Shower/Bathe Self (QC): 4 (SBA) Upper Body Dressing (QC): 5 (setup) Lower Body Dressing (QC): 4 (SBA, cues, supervision) On/Off Footwear (QC): 5 Toileting Hygiene (QC): 4 (SBA) Toilet Transfer (QC): 4 (SBA) Assessment/Plan Assessment and Plan Assess & Plan/Chief Complaint Assessment: CVA with left sided weakness and peripheral vision loss s/p TVAR 2 weeks ago [place] h/o massive PE holding Xarelto for 4 weeks ABIGAIL on biPAP Cochlear implant GERD IBS RLS Plan: IRF protocol Fall risk Monitor GERD Cardiology consultation 07/19/2020: Appreciate cardiology consultation Monitor closely No anticoagulation for 2 more weeks Fall risk Monitor closely 07/20/2020: Dramatic improvement Appreciate cardiology management Monitor closely 07/21/2020: Monitor for falls Tylenol for headache Doing very well 07/22/2020: Dramatic improvement Monitor for pain Fall risk 07/23/2020: Discharge planning soon Monitor closely 07/24/2020: Discharge tomorrow CT scan due 08/09/2020 Dr. Indra Joshi eye doctor she will see at discharge (1) CVA (cerebral vascular accident) (2) Status post aortic valve replacement (3) ABIGAIL (obstructive sleep apnea) (4) Aortic stenosis (5) Carotid arterial disease (6) Hx pulmonary embolism Status: Chronic (7) Cochlear implant in place Status: Chronic (8) RLS (restless legs syndrome) Status: Chronic (9) GERD (gastroesophageal reflux disease) Status: Chronic (10) Status post total hip replacement, right DUNG KEYS DO Jul 24, 2020 10:53
--- NOTE | 2020-07-24 11:29 | Occupational Ther Daily Note ---
OT Current Status-Daily Note Subjective Pt seen in room, up in recliner, agreeable to OT. She declined all ADLs, stating that she had just toileted. No pain mentioned. Appearance Alert, cooperative ADL-Treatment Pt wanted to order her lunch before she went to the gym. She uses her cell phone which connects directly to her cochlear implant. She had difficulty touching the correct numbers, especially on the left side and was not generally aware when she mistyped the number. It required multiple repetitions and correctly. She was able to enter number correctly when read to her one digit at a time. She forgot to ask to have her lunch delivered at a later time. Therapy Code Descriptions/Definitions Functional [place] Measure: 0=Not Assessed/NA 4=Minimal Assistance 1=Total Assistance 5=Supervision or Setup 2=Maximal Assistance 6=Modified [place] 3=Moderate Assistance 7=Complete IndependenceSCALE: Activities may be completed with or without assistive devices. 8-Wdcxobfrln-cewkqgw completes the activity by him/herself with no assistance from a helper. 5-Set-up or Clean-up Assistance-helper sets up or cleans up; patient completes activity. [place] assists only prior to or following the activity. 4-Supervision or Touching Assistance-helper provides verbal cues and/or touching/steadying and/or contact guard assistance as patient completes activity. Assistance may be provided throughout the activity or intermittently. 3-Partial/Moderate Assistance-helper does LESS THAN HALF the effort. [place] lifts, holds or supports trunk or limbs, but provides less than half the effort. 2-Substantial/Maximal Assistance-helper does MORE THAN HALF the effort. [place] lifts or holds trunk or limbs and provides more than half the effort. 4-Ewinrtulg-orqfhw does ALL the effort. Patient does none of the effort to complete the activity. Or, the assistance of 2 or more helpers is required for the patient to complete the activity. If activity was not attempted, code reason: 7-Patient Refused. 9-Not Applicable-not attempted and the patient did not perform the activity before the current illness, exacerbation or injury. 10-Not Attempted due to Environmental Limitations-(lack of equipment, weather restraints, etc.). 88-Not Attempted due to Medical Conditions or Safety Concerns. Other Treatment Pt transferred out of chair with SBA walked SBA, FWW to gym. She completed 12 minutes bilat UE exercise on arm bike, set at 20W resistance (an increase of 2 minutes from yesterday). To strengthen arms to assist with safe transfers. She also worked on multiple activities requiring practice and training to look to her left side. She had more difficulty with items in her lower left visual field and more trouble with items that were red or orange. She found it easier to find words in her left visual field. At times she needed visual cues to find items and other times required verbal cues. Activities to help with awareness in L visual field as needed for such tasks as finding correct numerals on phone. Pt walked back to room and was left up in recliner, all needs met. Education OT Patient Education: Disease process, Progress toward Goal/Update tx plan, Purpose of tx/functional activities Teaching Recipient: Patient Teaching Methods: Discussion Response to Teaching: Verbalize Understanding, Reinforcement Needed OT Short Term Goals Short Term Goals Time Frame: Jul 26, 2020 Eatin Oral hygiene: 5 Toileting hygiene: 4 Shower/bathe self: 4 Upper body dressin Lower body dressin Putting on/taking off footwear: 4 OT Group Home Goals Group Home Goals Time Frame: Aug 02, 2020 Eating (QC): 6 Oral Hygiene (QC): 6 Toileting Hygiene (QC): 6 Shower/Bathe Self (QC): 4 Upper Body Dressing (QC): 5 Lower Body Dressing (QC): 5 On/Off Footwear (QC): 6 Additional Goals: 1-Demonstrate ADL Tasks, 2-Verbalize Understanding, 3- ImproveStrength/Priya 1=Demonstrate adherence to instructed precautions during ADL tasks. 2=Patient will verbalize/demonstrate understanding of assistive devices /modifications for ADL. 3=Patient will improve strength/tolerance for activity to enable patient to perform ADL's. OT Education/Plan Discharge Recommendations Plan/Recommendations: Continue POC Treatment Plan/Plan of Care Patient would benefit from OT for education, treatment and training to promote independence in ADL's, mobility, safety and/or upper extremity function for ADL's. Plan of Care: ADL Retraining, Functional Mobility, UE Funct Exercise/Act Treatment Duration: Aug 02, 2020 Frequency: At least 5 of 7 days/Wk (IRF) Estimated Hrs Per Day: 1.5 hours per day Agreement: Yes Rehab Potential: Good Time/GCodes Start Time: 09:45 Stop Time: 11:00 Total Time Billed (hr/min): 75 Billed Treatment Time visit, 15 minutes ADL, 15 minutes exercise, 45 minutes neuromotor MARIZA VALDES OT Jul 24, 2020 11:29
--- NOTE | 2020-07-24 12:31 | Physical Therapy Daily Note ---
PT Daily Note-Current Subjective Pt sitting in recliner upon arrival. Pt agrees to PT. Pain Location: No Pain Reported Mental Status Patient Orientation: Person, Place, Time, Situation Transfers SCALE: Activities may be completed with or without assistive devices. 4-Qtqvgchknf-zcwnyua completes the activity by him/herself with no assistance from a helper. 5-Set-up or Clean-up Assistance-helper sets up or cleans up; patient completes activity. [place] assists only prior to or following the activity. 4-Supervision or Touching Assistance-helper provides verbal cues and/or touching/steadying and/or contact guard assistance as patient completes activity. Assistance may be provided throughout the activity or intermittently. 3-Partial/Moderate Assistance-helper does LESS THAN HALF the effort. [place] lifts, holds or supports trunk or limbs, but provides less than half the effort. 2-Substantial/Maximal Assistance-helper does MORE THAN HALF the effort. [place] lifts or holds trunk or limbs and provides more than half the effort. 4-Hqkiljptj-chdqut does ALL the effort. Patient does none of the effort to complete the activity. Or, the assistance of 2 or more helpers is required for the patient to complete the activity. If activity was not attempted, code reason: 7-Patient Refused. 9-Not Applicable-not attempted and the patient did not perform the activity bef ore the current illness, exacerbation or injury. 10-Not Attempted due to Environmental Limitations-(lack of equipment, weather r estraints, etc.). 88-Not Attempted due to Medical Conditions or Safety Concerns. Sit to Stand (QC): 5 Toilet Transfer (QC): 5 Weight Bearing Full Weight Bearing Full Weight Bearing Gait Training Does the Patient Walk?: Yes Distance: 100' x2 Walk 10 feet (QC): 5 Walk 50 ft with 2 Turns(QC): 5 Gait Persons Needed: 1 Gait Assistive Device: FWW Exercises NuStep Minutes: 15 NuStep Workload: 5 Treatments TF to standing and uses BR. Pt amb. in hallway then uses NuStep. Pt amb. in hallway and returns to room at end of tx. All needs met, call light next to pt. Assessment Current Status: Good Progress Pt continues to work hard and activity tolerance improves daily. PT Short Term Goals Short Term Goals Time Frame: Jul 25, 2020 Roll Left & Right: 6 Sit to lyin Lying to sitting on side of be: 6 Sit to stand: 5 Chair/ojk-wc-smkum transfer: 5 Walk 10 feet: 5 Walk 50 feet with two turns: 5 Walk 150 feet: 5 PT Residential Goals Residential Goals PT Residential Goals Time Frame: Aug 08, 2020 Roll Left & Right (QC): 6 Sit to Lying (QC): 6 Lying-Sitting on Side/Bed(QC): 6 Sit to Stand (QC): 6 Chair/Xli-gh-Xbitb Xfer(QC): 6 Toilet Transfer (QC): 6 Car Transfer (QC): 6 Does the Patient Walk: Yes Walk 10 feet (QC): 6 Walk 50ft with 2 Turns (QC): 6 Walk 150 ft (QC): 6 Walking 10ft on Uneven Surface: 6 1 Step (curb) (QC): 5 4 Steps (QC): 5 12 Steps (QC): 5 Picking up an Object (QC): 5 Wheel 50 feet with 2 turns (QC: 9 Wheel 150 feet: 9 PT Plan Treatment/Plan Treatment Plan: Continue Plan of Care Treatment Plan: Bed Mobility, Education, Functional Activity Priya, Functional Strength, Group Therapy, Gait, Safety, Therapeutic Exercise, Transfers Treatment Duration: Aug 08, 2020 Frequency: At least 5 of 7 days/Wk (IRF) Estimated Hrs Per Day: 1.5 hours per day Patient and/or Family Agrees t: Yes Time/GCodes Time In: 1130 Time Out: 1215 Total Billed Treatment Time: 45 Total Billed Treatment 1, FA (15m), EX (15m) & GT (15m) ERIN MARLEY OSTEOPATHIC PHYSICIAN Jul 24, 2020 12:31
--- NOTE | 2020-07-24 14:24 | Progress Note - Cardiology ---
Cardiology SOAP Progress Note Subjective: No cp or palp or syncope or shortness of breath Some gen weakness and tiredess No n/v/d Objective: I&O/Vital Signs 07/24/20 07/24/20 07:48 08:25 Temp 36.7 Pulse 80 Resp 16 B/P (MAP) 114/58 (76) Pulse Ox 95 O2 Delivery Room Air Room Air Weight (Pounds): 174 Weight (Ounces): 12.8 Weight (Calculated Kilograms): 79.431219 Constitutional: AAO x 3, well-developed, well-nourished Respiratory: No accessory muscle use, No respiratory distress; chest expansion is symmetric, chest is bilaterally symmetric, lungs clear to auscultation Cardiovascular: regular rate-rhythm; No JVD; S1 and S2, systolic murmur Gastrointestional: No tender; soft, round Extremities: no lower extremity edema bilateral Neurologic/Psychiatric: other (left sided neglect; RUE and RLE 5/5; LUE and LLE 4/5) Skin: No rash on exposed areas, No ulcerations on exposed areas Results/Procedures: Labs Laboratory Tests 07/23/20 05:06 A/P: Assessment: 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 - Cardiac cath of Dec 27, 2019 showed - No significant coronary artery disease. Normal right heart pressures without evidence of intracardiac shunt. Aortic root angiography showed calcification and diminished excursion of aortic valve leaflets and mild to mod aortic regurgitation - Consultation with Dr Lopez at [facility] in Jan 2020: pt states she was advised to wait on AVR because she has no symptoms - S/P TAVR by Dr. Chang at [facility] June 2020 - subsquent CVA requiring transfer to [facility] for thromboembolectomy by Dr. Ornelas (neuro-surgery) and Dr. De Santiago (neurologist) - per daughters report (records not available) Right superficial femoral artery pseudoaneursym after cardiac cath of Dec 27, 2019, treated with thrombin injection by Dr. 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
--- NOTE | 2020-07-24 15:25 | Physical Therapy Daily Note ---
PT Daily Note-Current Subjective Pt sitting in recliner upon arrival. Pt agrees to PT. Pain Location: No Pain Reported Mental Status Patient Orientation: Person, Place, Time, Situation Transfers SCALE: Activities may be completed with or without assistive devices. 5-Fjvoeyzbkk-wzspodl completes the activity by him/herself with no assistance from a helper. 5-Set-up or Clean-up Assistance-helper sets up or cleans up; patient completes activity. [place] assists only prior to or following the activity. 4-Supervision or Touching Assistance-helper provides verbal cues and/or touching/steadying and/or contact guard assistance as patient completes activity. Assistance may be provided throughout the activity or intermittently. 3-Partial/Moderate Assistance-helper does LESS THAN HALF the effort. [place] lifts, holds or supports trunk or limbs, but provides less than half the effort. 2-Substantial/Maximal Assistance-helper does MORE THAN HALF the effort. [place] lifts or holds trunk or limbs and provides more than half the effort. 4-Iyrtgyksm-jicudw does ALL the effort. Patient does none of the effort to complete the activity. Or, the assistance of 2 or more helpers is required for the patient to complete the activity. If activity was not attempted, code reason: 7-Patient Refused. 9-Not Applicable-not attempted and the patient did not perform the activity bef ore the current illness, exacerbation or injury. 10-Not Attempted due to Environmental Limitations-(lack of equipment, weather r estraints, etc.). 88-Not Attempted due to Medical Conditions or Safety Concerns. Sit to Stand (QC): 6 Toilet Transfer (QC): 6 Weight Bearing Full Weight Bearing Full Weight Bearing Gait Training Does the Patient Walk?: Yes Distance: 250' x2 Walk 10 feet (QC): 6 Walk 50 ft with 2 Turns(QC): 6 Walk 150 ft (QC): 6 Gait Assistive Device: FWW Stair Training Stair Training: Handrails/: uses cane #of Steps: 4 1 Step (curb) (QC): 6 4 Steps (QC): 6 Balance Picking up an Object (QC): 5 Treatments TF to standing, uses BR. Pt amb. in halllway and amb. 4 steps. After RB, pt amb. in hallway before returning to room. All needs met, pt resting in recliner with call light in hand. Assessment Current Status: Good Progress Pt reports feeling ready to go home and has improved with activity tolerance and strength. PT Short Term Goals Short Term Goals Time Frame: Jul 25, 2020 Roll Left & Right: 6 Sit to lyin Lying to sitting on side of be: 6 Sit to stand: 5 Chair/nms-kg-czuhr transfer: 5 Walk 10 feet: 5 Walk 50 feet with two turns: 5 Walk 150 feet: 5 PT Data Reduction Technician Goals Data Reduction Technician Goals PT [facility] Goals Time Frame: Aug 08, 2020 Roll Left & Right (QC): 6 Sit to Lying (QC): 6 Lying-Sitting on Side/Bed(QC): 6 Sit to Stand (QC): 6 Chair/Buf-kv-Iqktp Xfer(QC): 6 Toilet Transfer (QC): 6 Car Transfer (QC): 6 Does the Patient Walk: Yes Walk 10 feet (QC): 6 Walk 50ft with 2 Turns (QC): 6 Walk 150 ft (QC): 6 Walking 10ft on Uneven Surface: 6 1 Step (curb) (QC): 5 4 Steps (QC): 5 12 Steps (QC): 5 Picking up an Object (QC): 5 Wheel 50 feet with 2 turns (QC: 9 Wheel 150 feet: 9 PT Plan Treatment/Plan Treatment Plan: Continue Plan of Care Treatment Plan: Bed Mobility, Education, Functional Activity Priya, Functional Strength, Group Therapy, Gait, Safety, Therapeutic Exercise, Transfers Treatment Duration: Aug 08, 2020 Frequency: At least 5 of 7 days/Wk (IRF) Estimated Hrs Per Day: 1.5 hours per day Patient and/or Family Agrees t: Yes Time/GCodes Time In: 1435 Time Out: 1510 Total Billed Treatment Time: 35 Total Billed Treatment 1, FA (15m) & GT (20m) ERIN MARLEY INSEAM LEVELER Jul 24, 2020 15:25
[2020-07-24 20:00] VITALS: BP 131/60
[2020-07-25] MEDS: MULTIVIT W/MINERALS TAB (THERAGRAN M) PO SCH (06:18)
[2020-07-25] MEDS ORDERED: ASPI-1238 PO (07:20)
--- NOTE | 2020-07-25 07:21 | D/C HH Face to Face Order ---
D/C Face to Face Orders Reconcile Patient Problems Problems Reviewed?: Yes Instructions for Patient Via [facility], Patient Instructions/FollowUp: Dr Mcintosh in 1 week Physician to follow Patient: Dayna Discharge Diet for Home: No Restrictions Patient Problems: CVA following aortic valve replacement Goals for Patient: [place] Patient Data-Allergies,Ht & Wt Patient Allergies: Coded Allergies: No Known Drug Allergies (Unverified , 02/04/17) Height (Feet): 5 Height (Inches): 3.00 Weight (Pounds): 174 Weight (Ounces): 12.8 Home Health Need/Face to Face Date of Face to Face: Jul 25, 2020 Clinical Findings: Generalized weakness and fatigue, Instability, Muscle weakness, Unsteady gait I have seen Pt fsvr-ej-zzdj: Yes Discharged To: Home Diagnosis/Conditions: CVA following aortic valve replacement Patient is Homebound due to: [place] fall risk due to instabilty Homebound Status Due to the above stated illness, injury or surgical procedure (medical condition or diagnosis) and associated clinical findings, the patient is homebound because of his/her inability to leave home except with aid of a supportive device and/or person AND leaving the home requires a considerable and taxing effort or is medically contraindicated. Pt req the following assistanc: [place] Home Health Nursing Orders Home Health Services Order: Nursing Services, Monotypist-Evaluate & Treat, Physical Therapy-Evaluate & Treat Certify Stmt I certify that this patient is under my care and that I, a nurse practitioner or a physician; a supply assistant working with me, had a face to face encounter that - meets the physician face to face encounter requirements with this patient as dated. DUNG MCINTOSH DO Jul 25, 2020 07:21
--- NOTE | 2020-07-25 07:23 | Discharge Summary ---
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 s/p TVAR 2 weeks ago [place] h/o massive PE holding Xarelto for 4 weeks ABIGAIL on biPAP Cochlear implant GERD IBS RLS Plan: IRF protocol Fall risk Monitor GERD Cardiology consultation 07/19/2020: Appreciate cardiology consultation Monitor closely No anticoagulation for 2 more weeks Fall risk Monitor closely 07/20/2020: Dramatic improvement Appreciate cardiology management Monitor closely 07/21/2020: Monitor for falls Tylenol for headache Doing very well 07/22/2020: Dramatic improvement Monitor for pain Fall risk 07/23/2020: Discharge planning soon Monitor closely 07/24/2020: Discharge tomorrow CT scan due 08/09/2020 Dr. Indra Joshi eye doctor she will see at discharge (1) CVA (cerebral vascular accident) (2) Status post aortic valve replacement (3) ABIGAIL (obstructive sleep apnea) (4) Aortic stenosis (5) Carotid arterial disease (6) Hx pulmonary embolism Status: Chronic (7) Cochlear implant in place Status: Chronic (8) RLS (restless legs syndrome) Status: Chronic (9) GERD (gastroesophageal reflux disease) Status: Chronic (10) Status post total hip replacement, right Discharge Summary Discharge Physical Examination Allergies: Coded Allergies: No Known Drug Allergies (Unverified , 02/04/17) Vitals & I&Os Vital Signs Date Time Temp Pulse Resp B/P (MAP) Pulse Ox O2 Delivery O2 Flow Rate FiO2 07/25/20 18:59 37.0 88 24 122/56 98 Room Air General Appearance: Alert, Oriented X3, Cooperative Respiratory: Clear to Auscultation Cardiovascular: Regular Rate Neuro: Normal Gait, Normal Speech, Strength at 5/5 X4 Ext Psych/Mental Status: Mental Status NL Hospital Course Was the Problem List Reviewed?: Yes Hospital course: Patient had an uneventful 7-day hospital course in inpatient rehab after transferring from [place] [facility] after suffering a stroke following aortic valve replacement at [facility]. She had visual field loss which will be managed as an outpatient by Dr. Indra Joshi her regular dietitian consultant. Cardiology did manage all of her cardiac issues which remained stable. Xarelto will not be started until after CT scan repeat on 08/09/2020 will be reviewed by neurology. She will have home health set up and she will see me in 1 week. Labs (last 24 hrs) Laboratory Tests 07/19/20 05:18: White Blood Count 5.2, Red Blood Count 3.28L, Hemoglobin 10.2L, Hematocrit 32L, Mean Corpuscular Volume 97, Mean Corpuscular Hemoglobin 31, Mean Corpuscular Hemoglobin Concent 32, Red Cell Distribution Width 13.8, Platelet Count 132, Mean Platelet Volume 11.3, Immature Granulocyte % (Auto) 1, Neutrophils (%) (Auto) 55, Lymphocytes (%) (Auto) 31, Monocytes (%) (Auto) 10, Eosinophils (%) (Auto) 4, Basophils (%) (Auto) 0, Neutrophils # (Auto) 2.9, Lymphocytes # (Auto) 1.6, Monocytes # (Auto) 0.5, Eosinophils # (Auto) 0.2, Basophils # (Auto) 0.0, Immature Granulocyte # (Auto) 0.0, Percent Immature Platelet Fraction 3.4, Sodium Level 143, Potassium Level 3.8, Chloride Level 106, Carbon Dioxide Level 27, Anion Gap 10, Blood Urea Nitrogen 18, Creatinine 0.69, Estimat Glomerular Filtration Rate > 60, BUN/Creatinine Ratio 26, Glucose Level 101, Calcium Level 8.8, Corrected Calcium 9.5, Total Bilirubin 0.5, Aspartate Amino Transf (AST/SGOT) 15, Alanine Aminotransferase (ALT/SGPT) 13, Alkaline Phosphatase 81, Total Protein 5.2L, Albumin 3.1L 07/23/20 05:06: White Blood Count 7.3, Red Blood Count 3.64L, Hemoglobin 11.2L, Hematocrit 35, Mean Corpuscular Volume 97, Mean Corpuscular Hemoglobin 31, Mean Corpuscular Hemoglobin Concent 32, Red Cell Distribution Width 14.4, Platelet Count 216, Mean Platelet Volume 9.9, Immature Granulocyte % (Auto) 1, Neutrophils (%) (Auto) 59, Lymphocytes (%) (Auto) 28, Monocytes (%) (Auto) 9, Eosinophils (%) (Auto) 3, Basophils (%) (Auto) 0, Neutrophils # (Auto) 4.3, Lymphocytes # (Auto) 2.1, Monocytes # (Auto) 0.7, Eosinophils # (Auto) 0.2, Basophils # (Auto) 0.0, Immature Granulocyte # (Auto) 0.1, Sodium Level 142, Potassium Level 4.6, Chloride Level 106, Carbon Dioxide Level 25, Anion Gap 11, Blood Urea Nitrogen 21H, Creatinine 0.84, Estimat Glomerular Filtration Rate > 60, BUN/Creatinine Ratio 25, Glucose Level 110H, Calcium Level 9.3, Corrected Calcium 9.5, Total Bilirubin 0.5, Aspartate Amino Transf (AST/SGOT) 22, Alanine Aminotransferase (ALT/SGPT) 17, Alkaline Phosphatase 103, Total Protein 6.7, Albumin 3.7 Pending Labs Laboratory Tests 07/19/20 05:18: White Blood Count 5.2, Red Blood Count 3.28, Hemoglobin 10.2, Hematocrit 32, Mean Corpuscular Volume 97, Mean Corpuscular Hemoglobin 31, Mean Corpuscular Hemoglobin Concent 32, Red Cell Distribution Width 13.8, Platelet Count 132, Mean Platelet Volume 11.3, Immature Granulocyte % (Auto) 1, Neutrophils (%) (Auto) 55, Lymphocytes (%) (Auto) 31, Monocytes (%) (Auto) 10, Eosinophils (%) (Auto) 4, Basophils (%) (Auto) 0, Neutrophils # (Auto) 2.9, Lymphocytes # (Auto) 1.6, Monocytes # (Auto) 0.5, Eosinophils # (Auto) 0.2, Basophils # (Auto) 0.0, Immature Granulocyte # (Auto) 0.0, Percent Immature Platelet Fraction 3.4, Sodium Level 143, Potassium Level 3.8, Chloride Level 106, Carbon Dioxide Level 27, Anion Gap 10, Blood Urea Nitrogen 18, Creatinine 0.69, Estimat Glomerular Filtration Rate > 60, BUN/Creatinine Ratio 26, Glucose Level 101, Calcium Level 8.8, Corrected Calcium 9.5, Total Bilirubin 0.5, Aspartate Amino Transf (AST/SGOT) 15, Alanine Aminotransferase (ALT/SGPT) 13, Alkaline Phosphatase 81, Total Protein 5.2, Albumin 3.1 07/23/20 05:06: White Blood Count 7.3, Red Blood Count 3.64, Hemoglobin 11.2, Hematocrit 35, Mean Corpuscular Volume 97, Mean Corpuscular Hemoglobin 31, Mean Corpuscular Hemoglobin Concent 32, Red Cell Distribution Width 14.4, Platelet Count 216, Mean Platelet Volume 9.9, Immature Granulocyte % (Auto) 1, Neutrophils (%) (Auto) 59, Lymphocytes (%) (Auto) 28, Monocytes (%) (Auto) 9, Eosinophils (%) (Auto) 3, Basophils (%) (Auto) 0, Neutrophils # (Auto) 4.3, Lymphocytes # (Auto) 2.1, Monocytes # (Auto) 0.7, Eosinophils # (Auto) 0.2, Basophils # (Auto) 0.0, Immature Granulocyte # (Auto) 0.1, Sodium Level 142, Potassium Level 4.6, Chloride Level 106, Carbon Dioxide Level 25, Anion Gap 11, Blood Urea Nitrogen 21, Creatinine 0.84, Estimat Glomerular Filtration Rate > 60, BUN/Creatinine Ratio 25, Glucose Level 110, Calcium Level 9.3, Corrected Calcium 9.5, Total Bilirubin 0.5, Aspartate Amino Transf (AST/SGOT) 22, Alanine Aminotransferase (ALT/SGPT) 17, Alkaline Phosphatase 103, Total Protein 6.7, Albumin 3.7 Discharge Home Medications: Active Scripts Active Aspirin EC (Aspirin) 81 Mg Tablet.dr 81 Mg PO DAILY Reported Tylenol (Acetaminophen) 325 Mg Capsule 650 Mg PO Q4H PRN Omeprazole 20 Mg Capsule.dr 20 Mg PO BID Instructions to patient/family Please see electronic discharge instructions given to patient. Diagnosis/Problems Diagnosis/Problems (1) CVA (cerebral vascular accident) (2) Status post aortic valve replacement (3) ABIGAIL (obstructive sleep apnea) (4) Aortic stenosis (5) Carotid arterial disease (6) Hx pulmonary embolism Status: Chronic (7) Cochlear implant in place Status: Chronic (8) RLS (restless legs syndrome) Status: Chronic (9) GERD (gastroesophageal reflux disease) Status: Chronic (10) Status post total hip replacement, right DUNG KEYS DO Jul 25, 2020 07:23
[2020-07-25 08:00] VITALS: BP 122/56
--- NOTE | 2020-07-25 08:15 | Speech Therapy Daily Note ---
Speech Daily Progress Note Subjective Date Seen by Provider: Jul 25, 2020 Time Seen by Provider: 00:10 Patient sitting up in her recliner after just finishing her breakfast. She is discharging to her home today. Objective Patient completed memory for safety upon her return home at 100%. Assessment Assessment Current Status: Good Progress Treatment Plan Discontinue ST, Goals Met Speech Short Term Goals Short Term Goals Short Term Goals 1) Patient will complete memory tasks related to her daily needs at 90% or greater with minimal cues. 2) Patient will complete safety awareness tasks related to her daily needs at 90% or greater with minimal cues. 3) Patient will complete problem solving tasks related to her daily needs at 90% or greater with minimal cues. Speech Retirement Goals Retirement Goals Patient will improve her cognitive-communication abilities in order to complete daily living tasks with minimal assist. Speech-Plan Patient/Family Goals Patient/Family Goals: Patient is discharging to her home today where she will have her daughter's assistance for a while. Treatment Plan Speech Therapy Treatment Plan: Discontinue ST, Goals Met Treatment Duration: Aug 03, 2020 Frequency: 4 times per week (Patient will receive skilled ST 4-5x per week) Estimated Hrs Per Day: .5 hour per day Rehab Potential: Good Barriers to Learning: Mild cognitive deficits initially, however they have resolved Pt/Family Agrees to Plan: Yes Safety Risks/Education Teaching Recipient: Patient Teaching Methods: Discussion Response to Teaching: Verbalize Understanding Education Topics Provided: Continued safety awareness upon her return home Time Speech Therapy Time In: 08:00 Speech Therapy Time Out: 08:10 Total Billed Time: 10 Billed Treatment Time 1, SLTS No QUALITY CODES: EXPRESSION OF IDEAS/WANTS: 4 UNDERSTANDING VERBAL CONTENT: 4 BRIEF INTERVIEW MENTAL STATUS: YES REPETITION OF 3 WORDS: 3 TEMPORAL ORIENTATION: YEAR: CORRECT, MONTH: CORRECT, DAY: CORRECT RECALL SOCK: YES, COLOR: YES, BED: YES MEMORY/RECALL ABILITY: SEASON, LOCATION OF ROOM, STAFF NAMES, THAT SHE IS IN THE [facility] Jul 25, 2020 08:15
--- NOTE | 2020-07-25 08:17 | Therapy Team Discharge Summary ---
Therapy Discharge Summary Discharge Recommendations Date of Discharge Occupational Therapy Decreased Activ Tolerance, Decreased UE Strength, Impaired Funct Balance Speech-Language Pathology Patient was admitted to the ARU following a CVA s/p heart surgery. Patient was given the SLUMS which indicated mild cognitive deficits. Patient's deficits resolved with skilled ST, meeting all goals. She is returning to her home today where her daughter will be available for a while to assist with daily needs. PT Fdc Goals Fdc Goals PT Fdc Goals Time Frame: Aug 08, 2020 Roll Left to Right (QC): 6 Sit to Lying (QC): 6 Lying-Sitting on Side/Bed(QC): 6 Sit to Stand (QC): 6 Chair/Shc-cm-Kgiec Xfer(QC): 6 Car Transfer (QC): 6 Does the Patient Walk: Yes Walk 10 feet (QC): 6 Walk 10ft-Uneven Surface(QC): 6 Walk 50ft with 2 Turns (QC): 6 Walk 150 ft (QC): 6 Wheel 50 feet with 2 turns (QC: 9 1 Step (curb) (QC): 5 4 Steps (QC): 5 12 Steps (QC): 5 Picking up an Object (QC): 5 OT Fdc Goals Fdc Goals Time Frame: Aug 02, 2020 Eating (QC): 6 Oral Hygiene (QC): 6 Shower/Bathe Self (QC): 4 Upper Body Dressing (QC): 5 Lower Body Dressing (QC): 5 On/Off Footwear (QC): 6 Toileting Hygiene (QC): 6 Toilet/Commode Transfer (QC): 6 Additional Goals: 1-Demonstrate ADL Tasks, 2-Verbalize Understanding, 3-I mproveStrength/Priya 1=Demonstrate adherence to instructed precautions during ADL tasks. 2=Patient will verbalize/demonstrate understanding of assistive devices/modifications for ADL. 3=Patient will improve strength/tolerance for activity to enable patient to perform ADL's. Speech Substation Superintendent Goals Substation Superintendent Goals Patient will improve her cognitive-communication abilities in order to complete daily living tasks with minimal assist. KINZA WORRELL Jul 25, 2020 08:17
[2020-07-25] MEDS: ASPIRIN E.C. 81 MG (ECOTRIN) TAB PO SCH (08:19)
[2020-07-25] MEDS: DOCUSATE SODIUM 100 MG (COLACE) CAP PO SCH (08:19)
[2020-07-25] MEDS: SENNA W/DOCUSATE (SENOKOT S) TABLET PO SCH (08:19)
[2020-07-25] MEDS: polyethylene glycoL POWDER 17 GM (MIRALAX) PACK PO SCH (08:19)
[2020-07-25] MEDS: CALCIUM CARBONATE 600 MG (CALCARB) TAB PO SCH (08:19)
[2020-07-25] MEDS: PANTOPRAZOLE 20 MG TABLET (PROTONIX) PO SCH (08:29)
--- NOTE | 2020-07-25 09:58 | Physical Therapy Daily Note ---
PT Daily Note-Current Subjective Agrees to PT. Reports she is going home today and is happy to go! Reports she plans to have [facility] PT follow. Mental Status Patient Orientation: Person, Place, Time, Situation Transfers SCALE: Activities may be completed with or without assistive devices. 9-Svymjhcujy-rsrqedl completes the activity by him/herself with no assistance from a helper. 5-Set-up or Clean-up Assistance-helper sets up or cleans up; patient completes activity. [place] assists only prior to or following the activity. 4-Supervision or Touching Assistance-helper provides verbal cues and/or touching/steadying and/or contact guard assistance as patient completes activity. Assistance may be provided throughout the activity or intermittently. 3-Partial/Moderate Assistance-helper does LESS THAN HALF the effort. [place] lifts, holds or supports trunk or limbs, but provides less than half the effort. 2-Substantial/Maximal Assistance-helper does MORE THAN HALF the effort. [place] lifts or holds trunk or limbs and provides more than half the effort. 1-Icrhemvcr-wuwmjl does ALL the effort. Patient does none of the effort to complete the activity. Or, the assistance of 2 or more helpers is required for the patient to complete the activity. If activity was not attempted, code reason: 7-Patient Refused. 9-Not Applicable-not attempted and the patient did not perform the activity before the current illness, exacerbation or injury. 10-Not Attempted due to Environmental Limitations-(lack of equipment, weather restraints, etc.). 88-Not Attempted due to Medical Conditions or Safety Concerns. Roll Left & Right (QC): 6 Sit to Lying (QC): 6 Lying to Sitting/Side of Bed(Q: 6 Sit to Stand (QC): 6 Chair/Vzd-aq-Bsosr Xfer(QC): 6 Toilet Transfer (QC): 6 Car Transfer (QC): 6 safe with all functional transfer. Weight Bearing Full Weight Bearing Full Weight Bearing Gait Training Walk 10 feet (QC): 6 Walk 50 ft with 2 Turns(QC): 6 Walk 150 ft (QC): 6 Walking 10ft/uneven surface-QC: 6 Gait Assistive Device: FWW safe and steady gait with FWW; working on gait training with cane, will continue to progress with [facility] PT Wheelchair Training Wheel 50 ft with 2 turns (QC): 9 Wheel 150 ft (QC): 9 Stair Training 1 Step (curb) (QC): 6 4 Steps (QC): 6 12 Steps (QC): 9 Stairs: Pattern: Reciprocal safe with steps; uses handrail Balance Picking up an Object (QC): 6 Assessment Current Status: Excellent Progress Pt is mod indep with all mobility and safe. Recommend [facility] to follow to progress to use of cane. Pt meeting goals. PT Short Term Goals Short Term Goals Time Frame: Jul 25, 2020 Roll Left & Right: 6 Sit to lyin Lying to sitting on side of be: 6 Sit to stand: 5 Chair/bsh-zb-phrqk transfer: 5 Walk 10 feet: 5 Walk 50 feet with two turns: 5 Walk 150 feet: 5 PT Snf Goals Snf Goals PT Budder Goals Time Frame: Aug 08, 2020 Roll Left & Right (QC): 6 Sit to Lying (QC): 6 Lying-Sitting on Side/Bed(QC): 6 Sit to Stand (QC): 6 Chair/Dlw-pb-Hqtqy Xfer(QC): 6 Toilet Transfer (QC): 6 Car Transfer (QC): 6 Does the Patient Walk: Yes Walk 10 feet (QC): 6 Walk 50ft with 2 Turns (QC): 6 Walk 150 ft (QC): 6 Walking 10ft on Uneven Surface: 6 1 Step (curb) (QC): 5 4 Steps (QC): 5 12 Steps (QC): 5 Picking up an Object (QC): 5 Wheel 50 feet with 2 turns (QC: 9 Wheel 150 feet: 9 all goals met. PT Plan Treatment/Plan Treatment Plan: Discontinue PT, goals met Treatment Plan: Bed Mobility, Education, Functional Activity Priya, Functional Strength, Group Therapy, Gait, Safety, Therapeutic Exercise, Transfers Treatment Duration: Aug 08, 2020 Frequency: At least 5 of 7 days/Wk (IRF) Estimated Hrs Per Day: 1.5 hours per day Patient and/or Family Agrees t: Yes Safety Risks/Education Patient Education: Safety Issues Teaching Recipient: Patient Response to Teaching: Verbalize Understanding Discharge Recommendations Therapy Discharge Recommendati: Post Acute PT ([facility] PT) Time/GCodes Time In: 940 Time Out: 955 Total Billed Treatment Time: 15 Total Billed Treatment visit FA 15 KEITH ALANIZ PT Jul 25, 2020 09:57
--- NOTE | 2020-07-25 10:00 | Therapy Team Discharge Summary ---
Therapy Discharge Summary Discharge Recommendations Date of Discharge 07/25/2020 Therapy D/C Recommendations: Physical Therapy Home Care Physical Therapy This patient admitted to ARU post acute hospital stay due to a CVA. Prior to her infarct, she was indep with all mobiltiy and living alone. Upon admission to this unit, she was mod indep with bed mobility, CGA with transfers and walked 200 ft with FWW with CGA. Treatment has focused on functional strength, balance, attention to the left side, gait progression and safety. She has made excellent progress and has met all goals set at evaluation. She is to discharge home today and her daughter plans to stay for about a week. In addition, [facility] PT is recommended. DC from ARU PT at this time. Occupational Therapy Decreased Activ Tolerance, Decreased UE Strength, Impaired Funct Balance PT Peoplesoft Consultant Goals Retirement Goals PT Retirement Goals Time Frame: Aug 08, 2020 Roll Left to Right (QC): 6 Sit to Lying (QC): 6 Lying-Sitting on Side/Bed(QC): 6 Sit to Stand (QC): 6 Chair/Fzj-rn-Csmnv Xfer(QC): 6 Car Transfer (QC): 6 Does the Patient Walk: Yes Walk 10 feet (QC): 6 Walk 10ft-Uneven Surface(QC): 6 Walk 50ft with 2 Turns (QC): 6 Walk 150 ft (QC): 6 Wheel 50 feet with 2 turns (QC: 9 1 Step (curb) (QC): 5 4 Steps (QC): 5 12 Steps (QC): 5 Picking up an Object (QC): 5 all goals met; excellent progress OT [employer]oples[employer] Consultant Goals Retirement Goals Time Frame: Aug 02, 2020 Eating (QC): 6 Oral Hygiene (QC): 6 Shower/Bathe Self (QC): 4 Upper Body Dressing (QC): 5 Lower Body Dressing (QC): 5 On/Off Footwear (QC): 6 Toileting Hygiene (QC): 6 Toilet/Commode Transfer (QC): 6 Additional Goals: 1-Demonstrate ADL Tasks, 2-Verbalize Understanding, 3- ImproveStrength/Priya 1=Demonstrate adherence to instructed precautions during ADL tasks. 2=Patient will verbalize/demonstrate understanding of assistive devices/modifications for ADL. 3=Patient will improve strength/tolerance for activity to enable patient to perform ADL's. Speech Retirement Goals Peoplesoft Consultant Goals Patient will improve her cognitive-communication abilities in order to complete daily living tasks with minimal assist. KEITH ALANIZ PT Jul 25, 2020 10:00
--- NOTE | 2020-07-25 10:54 | Occupational Ther Daily Note ---
OT Current Status-Daily Note Subjective Pt seen in room, up in recliner, agreeable to OT. Ready for discharge to home today, with daughter staying with her. No pain mentioned. Appearance Alert, cooperative ADL-Treatment Pt got up from recliner without help. Walked mod I to bathroom, completed toilet transfer and toileting mod I, FWW, using taller toilet and grab bar. She was having bowel difficulties and toileted several times throughout treatment. She undressed without difficulty and walked mod I, FWW to shower. Transferred on/off shower chair mod I, using grab bar. Washed and dried all parts with setup, using hand held shower and grab bars. Pt stated that she will have her daughter with her when she bathes, for safety. She retrieved clean clothes from the closet and dressed mod I, using modified technique for hooking bra. Shoes and socks on mod I. Brushed teeth mod I, FWW at sink. No assist needed with eating. Discussed home activities to help with attention to L visual field and pt stated that she may have neighbor's grandson do activities with her. See tx plan for goals med. Recommend home health OT. DC OT. Therapy Code Descriptions/Definitions Functional [place] Measure: 0=Not Assessed/NA 4=Minimal Assistance 1=Total Assistance 5=Supervision or Setup 2=Maximal Assistance 6=Modified [place] 3=Moderate Assistance 7=Complete IndependenceSCALE: Activities may be completed with or without assistive devices. 4-Lurwxctckv-ajgzhvb completes the activity by him/herself with no assistance from a helper. 5-Set-up or Clean-up Assistance-helper sets up or cleans up; patient completes activity. [place] assists only prior to or following the activity. 4-Supervision or Touching Assistance-helper provides verbal cues and/or touching/steadying and/or contact guard assistance as patient completes activity. Assistance may be provided throughout the activity or intermittently. 3-Partial/Moderate Assistance-helper does LESS THAN HALF the effort. [place]nora lifts, holds or supports trunk or limbs, but provides less than half the effort. 2-Substantial/Maximal Assistance-helper does MORE THAN HALF the effort. [place]nora lifts or holds trunk or limbs and provides more than half the effort. 0-Jyiikpbxz-pzzslv does ALL the effort. Patient does none of the effort to complete the activity. Or, the assistance of 2 or more helpers is required for the patient to complete the activity. If activity was not attempted, code reason: 7-Patient Refused. 9-Not Applicable-not attempted and the patient did not perform the activity before the current illness, exacerbation or injury. 10-Not Attempted due to Environmental Limitations-(lack of equipment, weather restraints, etc.). 88-Not Attempted due to Medical Conditions or Safety Concerns. Eating (QC): 6 Oral Hygiene (QC): 6 Shower/Bathe Self (QC): 5 Upper Body Dressing (QC): 6 Lower Body Dressing (QC): 6 On/Off Footwear: 6 Toileting Hygiene (QC): 6 Toilet Transfer (QC): 6 Education OT Patient Education: Home exercise program, Progress toward Goal/Update tx plan, Purpose of tx/functional activities, Safety issues Teaching Recipient: Patient Teaching Methods: Discussion Response to Teaching: Verbalize Understanding OT Short Term Goals Short Term Goals Time Frame: Jul 26, 2020 Eatin Oral hygiene: 5 Toileting hygiene: 4 Shower/bathe self: 4 Upper body dressin Lower body dressin Putting on/taking off footwear: 4 OT [employer] Jig Grinder Goals [facility]it[facility]iary Goals Time Frame: Aug 02, 2020 Eating (QC): 6 (met) Oral Hygiene (QC): 6 (met) Toileting Hygiene (QC): 6 (met) Shower/Bathe Self (QC): 4 (met) Upper Body Dressing (QC): 5 (met) Lower Body Dressing (QC): 5 (met) On/Off Footwear (QC): 6 (met) Additional Goals: 1-Demonstrate ADL Tasks, 2-Verbalize Understanding, 3- ImproveStrength/Priya 1=Demonstrate adherence to instructed precautions during ADL tasks. 2=Patient will verbalize/demonstrate understanding of assistive devices/modifications for ADL. 3=Patient will improve strength/tolerance for activity to enable patient to perform ADL's. OT Education/Plan Discharge Recommendations Plan/Recommendations: Discharge/Goals Met Treatment Plan/Plan of Care Patient would benefit from OT for education, treatment and training to promote independence in ADL's, mobility, safety and/or upper extremity function for AD L's. Plan of Care: ADL Retraining, Functional Mobility, UE Funct Exercise/Act Treatment Duration: Aug 02, 2020 Frequency: At least 5 of 7 days/Wk (IRF) Estimated Hrs Per Day: 1.5 hours per day Agreement: Yes Rehab Potential: Good Time/GCodes Start Time: 08:30 Stop Time: 09:30 Total Time Billed (hr/min): 60 Billed Treatment Time visit, 60 minutes ADL MARIZA VALDES OT Jul 25, 2020 10:53
--- NOTE | 2020-07-25 10:59 | Therapy Team Discharge Summary ---
Therapy Discharge Summary Discharge Recommendations Date of Discharge 07/25/20 Therapy D/C Recommendations: Occupational Therapy Home Care, Physical Therapy Home Care Occupational Therapy Pt was admitted after CVA, with difficulties with ADLs and L visual field. She needed mod assist with most ADLs. By discharge she was modified independent with all ADLs, using FWW, except setup for bathing. Discussed home activities with her to work on visual field neglect. Recommend home health OT. See tx plan for goals met. DC OT. Decreased Activ Tolerance, Decreased UE Strength, Impaired Funct Balance PT Correction Goals Correction Goals PT Correction Goals Time Frame: Aug 08, 2020 Roll Left to Right (QC): 6 Sit to Lying (QC): 6 Lying-Sitting on Side/Bed(QC): 6 Sit to Stand (QC): 6 Chair/Wsw-fe-Gllep Xfer(QC): 6 Car Transfer (QC): 6 Does the Patient Walk: Yes Walk 10 feet (QC): 6 Walk 10ft-Uneven Surface(QC): 6 Walk 50ft with 2 Turns (QC): 6 Walk 150 ft (QC): 6 Wheel 50 feet with 2 turns (QC: 9 1 Step (curb) (QC): 5 4 Steps (QC): 5 12 Steps (QC): 5 Picking up an Object (QC): 5 OT Correction Goals Textile Screen Maker Goals Time Frame: Aug 02, 2020 Eating (QC): 6 (met) Oral Hygiene (QC): 6 (met) Shower/Bathe Self (QC): 4 (met) Upper Body Dressing (QC): 5 (met) Lower Body Dressing (QC): 5 (met) On/Off Footwear (QC): 6 (met) Toileting Hygiene (QC): 6 (met) Toilet/Commode Transfer (QC): 6 Additional Goals: 1-Demonstrate ADL Tasks, 2-Verbalize Understanding, 3- ImproveStrength/Priya 1=Demonstrate adherence to instructed precautions during ADL tasks. 2=Patient will verbalize/demonstrate understanding of assistive devices/modifications for ADL. 3=Patient will improve strength/tolerance for activity to enable patient to perform ADL's. Speech Textile Screen Maker Goals Correction Goals Patient will improve her cognitive-communication abilities in order to complete daily living tasks with minimal assist. MARIZA VALDES OT Jul 25, 2020 10:59
[2020-07-25 18:59] VITALS: BP 122/56
== END 2020-07-25 11:30 | disposition home health service (06) | DRG 57 ==
PROVIDERS: ADMIT Internal Medicine; ATTEND Internal Medicine
DX: I69.354 Hemiplegia and hemiparesis following cerebral infarction affecting left non-dominant side (principal); R41.4 Neurologic neglect syndrome; H53.451 Other localized visual field defect, right eye; I69.398 Other sequelae of cerebral infarction; K21.9 Gastro-esophageal reflux disease without esophagitis; M19.91 Primary osteoarthritis, unspecified site; G47.33 Obstructive sleep apnea (adult) (pediatric); H91.93 Unspecified hearing loss, bilateral; G25.81 Restless legs syndrome; K58.9 Irritable bowel syndrome, unspecified; I87.2 Venous insufficiency (chronic) (peripheral); Z79.01 Long term (current) use of anticoagulants; Z86.711 Personal history of pulmonary embolism; Z96.21 Cochlear implant status; Z97.4 Presence of external hearing-aid; Z95.2 Presence of prosthetic heart valve; Z96.641 Presence of right artificial hip joint; Z79.82 Long term (current) use of aspirin; Z82.49 Family history of ischemic heart disease and other diseases of the circulatory system
CPT/HCPCS: 36415; 80053; 85025

== ENCOUNTER → 2020-08-01 | Outpatient (CLI) | payer MEDICARE ==
[~2020-08-01] MED LIST changes: +ACET325C7 PO; +ASPI-1238 PO; +CALC-823 PO; +MULT-1136 PO; +RIVA20TA PO
== END ==
LOC: CARD 13:14
PROVIDERS: ATTEND Nurse Practitioner
DX: I08.0 Rheumatic disorders of both mitral and aortic valves (principal); Z95.2 Presence of prosthetic heart valve
CPT/HCPCS: 93306

== ENCOUNTER → 2020-08-07 | Outpatient (CLI) | payer MEDICARE ==
[~2020-08-07] MED LIST changes: -OMEP40CA27 PO; +OMEP40CA6 PO
--- NOTE | 2020-08-07 09:10 | Diagnostic Imaging Report ---
EXAMINATION: CT head without contrast. TECHNIQUE: Multiple contiguous axial images were obtained through the brain without the use of intravenous contrast. All CT scans use one or more of the following dose optimizing techniques: automated exposure control, MA and/or KvP adjustment based on patient size and exam type or iterative reconstruction. HISTORY: Focal neurologic deficits. Altered mental status. Evaluate for acute ischemia. COMPARISON: 04/18/2017. FINDINGS: Age-indeterminate confluent decreased attenuation is seen throughout the right temporal lobe and within the right basal ganglia. No evidence of midline shift. No acute hemorrhage. Decreased attenuation is seen in the periventricular and subcortical white matter. The ventricles and cortical sulci are symmetric. The basilar cisterns are patent and unremarkable. The orbits are normal. Paranasal sinuses are normal. Mastoid air cells are clear. Right-sided cochlear implant is again noted. No soft tissue abnormality is seen. No osseus lesions or fractures are seen. IMPRESSION: 1. Area of age-indeterminate ischemia involving the right temporal lobe and portions of the right basal ganglia. These findings are new since the prior exam from 2018. If concern for acute process consider CTA of the head and neck to further evaluate. 2. Scattered chronic microvascular disease in the periventricular and subcortical white matter. 3. Stable configuration of the right-sided cochlear implant. Called to Dr. Fely Mcintosh at 9:10 a.m. by anthony. Dictated by: Dictated on workstation # [id number]
== END ==
LOC: RAD 08:45
PROVIDERS: ATTEND Internal Medicine
DX: I67.82 Cerebral ischemia (principal); I63.9 Cerebral infarction, unspecified; Z96.21 Cochlear implant status
CPT/HCPCS: 70450

== ENCOUNTER 2020-10-07 06:26 | Emergency (ER) | payer MEDICARE ==
[~2020-10-07] VITALS: Ht 160 cm; Wt 60.3 kg
--- NOTE | 2020-10-07 06:51 | ED Fall/Injury ---
General Chief Complaint: Hip/Pelvic Problems Stated Complaint: FALL Source: patient Exam Limitations: no limitations History of Present Illness Date Seen by Provider: Oct 07, 2020 Time Seen by Provider: 06:30 Initial Comments Here with report of unwitnessed fall at long-term care facility. Patient states that she had got up to go the bathroom and was using her walker. She got caught up in the leg and fell on her left hip. She believes she hit her head. She did state that she had a headache and nausea earlier that have resolved. This occurred sometime within the last hour. She is on Xarelto. She has had recent stroke per her. EMS was summoned. They do not report any shortening or rotation but did report that she had some pain in her left hip area and groin. Patient agrees with the pain to the left groin area now. Reports completing 2 dose vaccination series and denies symptoms related to Covid. Occurred: this morning Severity: moderate Injuries/Pain Location: pelvis, lower extremity Context: tripped Loss of Consciousness: no loss of consciousness Associated Symptoms (Fall): No Abdominal Pain, No Chest Pain, No Confusion; Headache, Nausea/Vomiting; No Neck Pain, No Shortness of Air Allergies and Home Medications Allergies Coded Allergies: No Known Drug Allergies (Unverified , 02/04/17) Home Medications Acetaminophen 325 Mg Capsule, 650 MG PO Q4H PRN for PAIN-MILD (1-4), (Reported) Aspirin 81 Mg Tablet., 81 MG PO DAILY Prescribed by: DUNG KEYS on 07/25/20 0720 Omeprazole 20 Mg Capsule.dr, 20 MG PO BID, (Reported) Patient Home Medication List Home Medication List Reviewed: Yes Review of Systems Review of Systems Constitutional: No chills, No fever Eyes: No Symptoms Reported Ears, Nose, Mouth, Throat: no symptoms reported Respiratory: No cough, No short of breath Cardiovascular: No chest pain, No edema Gastrointestinal: nausea; No vomiting Genitourinary: no symptoms reported Musculoskeletal: No back pain; joint pain, muscle pain; No neck pain Skin: change in color (Left leg and scalp); No lesions Psychiatric/Neurological: Headache, Pre-Existing Deficit Past Uknlejb-Owxfzh-Qwwkvv Hx Patient Social History Tobacco Use?: No Smoking Status: Never a Smoker Substance use?: No Alcohol Use?: No Pt feels they are or have been: No Immunizations Up To Date PED Vaccines UTD: Yes First/Initial COVID19 Vaccinat: 03/21/2020 Second COVID19 Vaccination Radu: 04/18/2020 COVID19 Vaccine Furniture Painter: AGNIESZKA Seasonal Allergies Seasonal Allergies: No Past Medical History Surgeries: Yes (SEE BELOW) Abdominal, Cardiac, Ear Surgery, Gallbladder, Joint Replacement, Orthopedic Respiratory: Yes (MASSIVE BILAT SADDLE EMBOLI/PE 04/2017-ON VENT/NOW HOME O2 AT HS) Pneumonia, Pulmonary Embolism, Sleep Apnea Currently Using CPAP: No Currently Using BIPAP: Yes Cardiac: Yes (AORTIC STENOSIS - dx 2012;CAROTID DISEASE;) Chronic Edema/Swelling, Peripheral Vascular, Valvular Heart Disease Neurological: Yes (RESTLESS LEG) Stroke 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 Disorders: No Female 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 Disorders: Denies CARDIO CLINICIAN History: Menopausal Sexually Transmitted Disease: No HIV/AIDS: No Genitourinary: No Gastrointestinal: Yes Abdominal Hernia, Gastroesophageal Reflux, Hiatal Hernia, Irritable Bowel Musculoskeletal: Yes (RIGHT HIP REPLACEMENT) Arthritis, Chronic Back Pain Endocrine: No HEENT: Yes (RT COCHLEAR IMPLANT/HEARING AID LEFT) Cataract 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, Bilateral Hearing Aide Cancer: No Psychosocial: Yes Sleep Difficulties Integumentary: No Blood Disorders: No Adverse Reaction/Blood Tranf: No Family Medical History Reviewed Nursing Family Hx Diabetes mellitus 19 FATHER 19 MOTHER FH: heart disease 19 MOTHER FH: muscular dystrophy G8 BROTHER (Friedreich's Ataxia) Hypertension Myocardial infarction 19 MOTHER No Pertinent Family Hx PAST SURGICAL HISTORY: -RIGHT COCHLEAR IMPLANT -HERNIA REPAIR -CHOLECYSTECTOMY -EGD/COLONOSCOPY -LUMBAR EPIDURAL STEROID INJECTIONS -RIGHT HIP REPLACEMENT 02/05/2017 -CARDIAC CATH 2012-NO SIGNFICANT CAD, NO INTERVENTION -CARDIAC CATH 12/27/2019--NO SIGNFICANT CAD. AORTIC STENOSIS/NEED FOR VALVE REPLACEMENT; NO INTERVENTION. EF 55-65%. DONE BY DR. ELLISON Physical Exam Vital Signs Vital Signs - First Documented 10/07/20 06:29 Temp 35.4 Pulse 78 Resp 18 B/P (MAP) 145/107 (120) Pulse Ox 99 O2 Delivery Room Air Capillary Refill : Height, Weight, BMI Height: 5'3.00" Weight: 174lbs. 12.8oz. 79.507084hp; 23.71 BMI Method:Stated General Appearance: WD/WN, no apparent distress HEENT: PERRL/EOMI, pharynx normal Neck: full range of motion, supple Cardiovascular: regular rate, rhythm, no murmur Respiratory: lungs clear, normal breath sounds Gastrointestinal: non tender, soft Extremities: pelvis stable, other (No tenderness to the left leg at the knee or lateral aspect of the hip. She does appear to have some tenderness medially. There is no shortening or rotation. Pelvis appears stable and nontender on push pull.) Neurologic/Psychiatric: alert, oriented x 3 Skin: warm/dry, ecchymosis (Small contusion to the left posterior scalp. A small bruise to the left leg near the knee on the lateral aspect.) Weatherby Coma Score Best Eye Response: (4) Open Spontaneously Best Verbal Response: (5) Oriented Best Motor Response: (6) Obeys Commands Progress/Results/Core Measures Results/Orders Lab Results Laboratory Tests Test 10/07/20 07:40 10/07/20 07:52 Range/Units White Blood Count 10.6 4.3-11.0 10^3/uL Red Blood Count 3.95 3.80-5.11 10^6/uL Hemoglobin 12.3 11.5-16.0 g/dL Hematocrit 38 35-52 % Mean Corpuscular Volume 97 80-99 fL Mean Corpuscular Hemoglobin 31 25-34 pg Mean Corpuscular Hemoglobin Concent 32 32-36 g/dL Red Cell Distribution Width 13.2 10.0-14.5 % Platelet Count 146 130-400 10^3/uL Mean Platelet Volume 10.1 9.0-12.2 fL Immature Granulocyte % (Auto) 1 % Neutrophils (%) (Auto) 89 H 42-75 % Lymphocytes (%) (Auto) 5 L 12-44 % Monocytes (%) (Auto) 5 0-12 % Eosinophils (%) (Auto) 0 0-10 % Basophils (%) (Auto) 0 0-10 % Neutrophils # (Auto) 9.4 H 1.8-7.8 10^3/uL Lymphocytes # (Auto) 0.6 L 1.0-4.0 10^3/uL Monocytes # (Auto) 0.5 0.0-1.0 10^3/uL Eosinophils # (Auto) 0.0 0.0-0.3 10^3/uL Basophils # (Auto) 0.0 0.0-0.1 10^3/uL Immature Granulocyte # (Auto) 0.1 0.0-0.1 10^3/uL Neutrophils % (Manual) 84 % Lymphocytes % (Manual) 5 % Monocytes % (Manual) 7 % Eosinophils % (Manual) 1 % Basophils % (Manual) 0 % Band Neutrophils 3 % Blood Morphology Comment NORMAL Sodium Level 134 L 135-145 MMOL/L Potassium Level 4.1 3.6-5.0 MMOL/L Chloride Level 100 98-107 MMOL/L Carbon Dioxide Level 26 21-32 MMOL/L Anion Gap 8 5-14 MMOL/L Blood Urea Nitrogen 16 7-18 MG/DL Creatinine 0.75 0.60-1.30 MG/DL Estimat Glomerular Filtration Rate 74 BUN/Creatinine Ratio 21 Glucose Level 144 H 70-105 MG/DL Calcium Level 9.3 8.5-10.1 MG/DL Corrected Calcium 9.5 8.5-10.1 MG/DL Total Bilirubin 0.7 0.1-1.0 MG/DL Aspartate Amino Transf (AST/SGOT) 16 5-34 U/L Alanine Aminotransferase (ALT/SGPT) 15 0-55 U/L Alkaline Phosphatase 104 40-136 U/L Total Protein 6.6 6.4-8.2 GM/DL Albumin 3.7 3.2-4.5 GM/DL SARS-CoV-2 RNA (RT-PCR) Not Detected Not Detecte My Orders Orders - KAY GAONA MD Pelvis With Left Hip 2-3 Views (10/07/20 06:35) Ct Head/Cervical Spine Wo (10/07/20 06:35) Chest 1 View, Ap/Pa Only (10/07/20 07:09) Cbc With Automated Diff (10/07/20 07:09) Comprehensive Metabolic Panel (10/07/20 07:09) Covid 19 Inhouse Test (10/07/20 07:09) Ed Iv/Invasive Line Start (10/07/20 07:09) Ed Iv/Invasive Line Start (10/07/20 07:30) Catheter(Urinary) Insert & Ass 03,15 (10/07/20 07:30) Lactated Ringers (Lr 1000 Ml Iv Solution (10/07/20 07:30) Manual Differential (10/07/20 07:40) Medications Given in ED Current Medications Medications Dose Ordered Sig/Sergo Route Start Time Stop Time Status Last Admin Dose Admin Lactated Ringer's 1,000 ml @ 125 mls/hr Q8H ONCE IV 10/07/20 07:30 10/07/20 15:29 10/07/20 07:50 125 MLS/HR Vital Signs/I&O 10/07/20 06:29 Temp 35.4 Pulse 78 Resp 18 B/P (MAP) 145/107 (120) Pulse Ox 99 O2 Delivery Room Air Progress Progress Note : Progress Note Seen and evaluated. CT head and neck ordered as patient is on Xarelto and had fall. X-ray pelvis and left hip. Monitor patient. 0735: CT is negative for acute bleed and there is no acute fracture of the C-spine. Intertrochanteric fracture noted to the left hip. We do not have orthopedic services available at this institution currently. We will initiate transfer proceedings for hip fracture. Monitor patient. 0736: [facility] in [place], [place] is on diversion with no beds. 0739: [facility] in [facility] is on trauma and stroke diversion and has no beds. We will check with [facility] and see if to have orthopedics available. IV line, Barron catheter and labs have been ordered and we will get Covid PCR test for transfer. Patient updated. We will try to get a hold of her family as well. Monitor patient. 0805: No availability at [facility]. We have initiated conversation with [facility]. 0814: [facility] does have a bed and I did speak with Dr. Acosta. He has excepted the patient for transfer pending bed number. Patient updated and agrees. We are very appreciative of their acceptance of the transfer and continuation of care. Monitor patient. Diagnostic Imaging Diagonstic Imaging: Xray Plain Films/CT/US/NM/MRI: pelvis, hip Comments NAME: MOHSEN ALANIS [facility] REC#: [id number] PT STATUS: REG ER : 1935 PHYSICIAN: KAY GAONA MD ADMIT DATE: 10/07/20/ER Draft Date of Exam:10/07/20 PELVIS WITH LEFT HIP 2-3 VIEWS EXAM: PELVIS WITH LEFT HIP 2-3 VIEWS INDICATION: Fall. Left hip pain. COMPARISON: None. FINDINGS/ IMPRESSION: 1. Left intertrochanteric hip fracture with marked displacement of the lesser trochanter. 2. Right SHAHNAZ. Dictated on workstation # [id number] Dict: 10/07/20 0716 Trans: 10/07/20717 [facility] [id number] Interpreted by: KANCHAN HERNANDEZ MD Electronically signed by: Dianstic Imaging: Xray Plain Films/CT/US/NM/MRI: chest Comments [facility] [place] [place] NAME: MOHSEN ALANIS [email or web address] REC#: [id number] PT STATUS: REG ER : 1935 PHYSICIAN: KAY GAONA MD ADMIT DATE: 10/07/20/ER Draft Date of Exam:10/07/20 CHEST 1 VIEW, AP/PA ONLY EXAM: CHEST 1 VIEW, AP/PA ONLY INDICATION: Hip fracture. COMPARISON: Chest radiograph 02/02/2018. FINDINGS: Normal heart size and central pulmonary vascularity. Cardiac valve prosthesis. No pleural effusion or pneumothorax. Lungs are clear. Cholecystectomy clips. IMPRESSION: No acute cardiopulmonary findings. Dictated on workstation # [id number] Dict: 10/07/20716 Trans: 10/07/20719 [facility] [id number] Interpreted by: KANCHAN HERNANDEZ MD Electronically signed by: Diagonstic Imaging: CT Comments [facility] [place] NAME: MOHSEN ALANIS [email or web address] REC#: [id number] PT STATUS: REG ER : 1935 PHYSICIAN: KAY GAONA MD ADMIT DATE: 10/07/20/ER Draft Date of Exam:10/07/20 CT HEAD/CERVICAL SPINE WO PROCEDURE: CT head and CT cervical spine without contrast. TECHNIQUE: Multiple contiguous axial images were obtained through the brain and cervical spine without the use of intravenous contrast. Sagittal and coronal reformations through the cervical spine were then performed. Auto Exposure Controls were utilized during the CT exam to meet ALARA standards for radiation dose reduction. INDICATION: Trauma. Fall. Head and neck pain. COMPARISON: CT head without contrast 08/07/2020. FINDINGS: CT HEAD: Streak artifact from right-sided hearing device limits evaluation. No large intracranial hemorrhage or extra-axial fluid collection. No CT evidence of acute infarction. Large infarct in the right temporal lobe. Moderate generalized parenchymal volume loss. Osseous structures are intact. Paranasal sinuses and mastoids are clear. CT CERVICAL SPINE: Vertebral body heights preserved. No fractures. Advanced degenerative endplate changes at C5-C6. No high-grade spinal canal stenosis is evident on soft tissue windows. Mild atherosclerotic calcifications in the carotid bifurcations. Lung apices are clear. IMPRESSION: 1. No acute intracranial or cervical spine CT findings. 2. Head CT is limited by streak artifact from right-sided hearing device. Dictated on workstation # [id number] Dict: 10/07/20 0705 Trans: 10/07/20710 [facility] [id number] Interpreted by: KANCHAN HERNANDEZ MD Electronically signed by: Departure Impression Primary Impression: Closed intertrochanteric fracture of left hip Qualified Codes: S72.142A - Displaced intertrochanteric fracture of left femur, initial encounter for closed fracture Disposition: 02 XFER SHT-TRM HOSP Condition: Stable Transfer Transfer Reason: Exceeds level of care Time Spoke to Accepting Phy: 08:14 Transfer Time: 09:40 [place] Method of Transfer: EMS Departure-Patient Inst. Referrals: DUNG KEYS DO (PCP/Family) Primary Care Physician KAY GAONA MD Oct 07, 2020 06:51
--- NOTE | 2020-10-07 07:12 | Diagnostic Imaging Report ---
PROCEDURE: CT head and CT cervical spine without contrast. TECHNIQUE: Multiple contiguous axial images were obtained through the brain and cervical spine without the use of intravenous contrast. Sagittal and coronal reformations through the cervical spine were then performed. Auto Exposure Controls were utilized during the CT exam to meet ALARA standards for radiation dose reduction. INDICATION: Trauma. Fall. Head and neck pain. COMPARISON: CT head without contrast 08/07/2020. FINDINGS: CT HEAD: Streak artifact from right-sided hearing device limits evaluation. No large intracranial hemorrhage or extra-axial fluid collection. No CT evidence of acute infarction. Large infarct in the right temporal lobe. Moderate generalized parenchymal volume loss. Osseous structures are intact. Paranasal sinuses and mastoids are clear. CT CERVICAL SPINE: Vertebral body heights preserved. No fractures. Advanced degenerative endplate changes at C5-C6. No high-grade spinal canal stenosis is evident on soft tissue windows. Mild atherosclerotic calcifications in the carotid bifurcations. Lung apices are clear. IMPRESSION: 1. No acute intracranial or cervical spine CT findings. 2. Head CT is limited by streak artifact from right-sided hearing device. Dictated by: Dictated on workstation # [id number]
--- NOTE | 2020-10-07 07:18 | Diagnostic Imaging Report ---
EXAM: PELVIS WITH LEFT HIP 2-3 VIEWS INDICATION: Fall. Left hip pain. COMPARISON: None. FINDINGS/ IMPRESSION: 1. Left intertrochanteric hip fracture with marked displacement of the lesser trochanter. 2. Right SHAHNAZ. Dictated by: Dictated on workstation # [id number]
--- NOTE | 2020-10-07 07:20 | Diagnostic Imaging Report ---
EXAM: CHEST 1 VIEW, AP/PA ONLY INDICATION: Hip fracture. COMPARISON: Chest radiograph 02/02/2018. FINDINGS: Normal heart size and central pulmonary vascularity. Cardiac valve prosthesis. No pleural effusion or pneumothorax. Lungs are clear. Cholecystectomy clips. IMPRESSION: No acute cardiopulmonary findings. Dictated by: Dictated on workstation # [id number]
[2020-10-07] MEDS ORDERED: LACTATED RINGERS 1,000 ML IV ONE (07:30)
[2020-10-07 07:47] LABS: BASOPHILS % (AUTO) 0 % (0-10); EOSINOPHILS % (AUTO) 0 % (0-10); HEMATOCRIT 38 % (35-52); HEMOGLOBIN 12.3 g/dL (11.5-16.0); LYMPHOCYTES # (AUTO) 0.6 10^3/uL (1.0-4.0); LYMPHOCYTES % (AUTO) 5 % (12-44); MEAN CORPUSCULAR HEMOGLOBIN 31 pg (25-34); MEAN CORPUSCULAR HGB CONC 32 g/dL (32-36); MEAN CORPUSCULAR VOLUME 97 fL (80-99); MEAN PLATELET VOLUME 10.1 fL (9.0-12.2); MONOCYTES # (AUTO) 0.5 10^3/uL (0.0-1.0); MONOCYTES % (AUTO) 5 % (0-12); NEUTROPHILS # (AUTO) 9.4 10^3/uL (1.8-7.8); NEUTROPHILS % (AUTO) 89 % (42-75); PLATELET COUNT 146 10^3/uL (130-400); WHITE BLOOD COUNT 10.6 10^3/uL (4.3-11.0)
[2020-10-07 07:57] LABS: ALBUMIN 3.7 GM/DL (3.2-4.5)
[2020-10-07 07:58] LABS: POTASSIUM 4.1 MMOL/L (3.6-5.0)
[2020-10-07 07:59] LABS: CALCIUM 9.3 MG/DL (8.5-10.1)
[2020-10-07 08:00] LABS: TOTAL PROTEIN 6.6 GM/DL (6.4-8.2)
[2020-10-07 08:02] LABS: BILIRUBIN,TOTAL 0.7 MG/DL (0.1-1.0)
[2020-10-07 08:04] LABS: CREATININE SERUM 0.75 MG/DL (0.60-1.30)
[2020-10-07 08:28] LABS: BAND NEUTROPHILS 3 %; BASOPHILS % (MANUAL) 0 %; EOSINOPHILS % (MANUAL) 1 %; LYMPHOCYTES % (MANUAL) 5 %; MONOCYTES % (MANUAL) 7 %; NEUTROPHILS % (MANUAL) 84 %
[2020-10-07 08:29] LABS: RBC MORPH NORMAL
[2020-10-07 09:40] VITALS: BP 132/98
== END 2020-10-07 09:40 | disposition short-term general hospital (02) ==
LOC: EDUNIT# 06:26 → ER 06:27
DX: S72.142A Displaced intertrochanteric fracture of left femur, initial encounter for closed fracture (principal); S00.03XA Contusion of scalp, initial encounter; S80.12XA Contusion of left lower leg, initial encounter; G47.30 Sleep apnea, unspecified; K21.9 Gastro-esophageal reflux disease without esophagitis; Z86.73 Personal history of transient ischemic attack (TIA), and cerebral infarction without residual deficits; Z86.711 Personal history of pulmonary embolism; Z20.822 Contact with and (suspected) exposure to COVID-19; Z79.01 Long term (current) use of anticoagulants; Z79.82 Long term (current) use of aspirin; Z79.899 Other long term (current) drug therapy; W22.8XXA Striking against or struck by other objects, initial encounter
CPT/HCPCS: 36415; 51702; 70450; 71045; 72125; 80053; 85007; 85027; 87636

== ENCOUNTER 2020-10-11 10:41 | Inpatient (IN) | payer MEDICARE ==
[~2020-10-11] VITALS: Ht 160 cm; Wt 62.4 kg
[~2020-10-11 10:41] MED LIST changes: +ALPRAZolam 0.25 MG (XANAX) TAB PO PRN; +BISACODYL 10 MG SUPP (DULCOLAX) PR PRN; +CALCIUM CARBONATE 500 MG (TUMS) TAB.CHEW PO PRN; +DOCUSATE SODIUM 100 MG (COLACE) CAP PO PRN; +LACTULOSE SYRUP 10GM/15ML (ENULOSE) 30ML UDC PO PRN; +LOPERAMIDE 2 MG (IMODIUM) TABLET PO PRN; +MELATONIN 3 MG TABLET PO PRN; +ONDANSETRON 4 MG (ZOFRAN) ORAL DISSOLVE TAB PO PRN; +diphenhydrAMINE 25 MG TAB (BENADRYL) PO PRN; +guaiFENesin/CODEINE (ROBITUSSIN AC) 10ML UDC PO PRN
[2020-10-11 11:02] VITALS: BP 148/64
[2020-10-11] MEDS ORDERED: VENL75CA93 PO (12:10)
[2020-10-11] MEDS ORDERED: RIVA20TA PO (12:10)
[2020-10-11] MEDS ORDERED: CIPR-225 PO (12:10)
[2020-10-11] MEDS ORDERED: MELA3TAB39 PO (12:12)
[2020-10-11] MEDS ORDERED: DOCU100C37 PO (12:14)
[2020-10-11] MEDS ORDERED: TRAM50TA3 PO (12:14)
[2020-10-11] MEDS ORDERED: DOCUSATE SODIUM 100 MG (COLACE) CAP PO PRN (13:00)
[2020-10-11] MEDS ORDERED: ACETAMINOPHEN 500 MG TAB (TYLENOL) PO PRN (13:00)
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
--- NOTE | 2020-10-11 14:03 | ST Cognitive Linguistic Eval ---
Speech Evaluation-General Referral Reason for Referral: Evaluation/Treatment Medical History Pertinent Medical History: Arthritis, GERD Social History Home: Assisted Living Speech PLF-Current Status Prior Level of Function Pt reports she had a stroke a couple months ago and had some difficulty with memory following the stroke. Language Eval: Auditory Comprehends Simple Yes/No Ques: Functional Indent/Objects Multiple [place]: Functional Ident/Pics in Multiple [place]: Functional Follows 1-Step Commands: Functional Follows Complex Directions: Functional Follows General Conversations: Functional Language Eval: Verbal Language Completes Spontaneous Greeting: Functional Produces Auto, Serial Info: Functional Imitates Simple Words/Phrases: Functional Word Finding: Functional Requests Basic Needs: Functional States Basic Personal Info: Functional Expresses Complex Ideas: Functional Objective Formal/Standardized Tests [facility] Mental Status ([facility] ) examination was completed. Results Pt scored 27/30 indicating normal cognitive status. Pt states she does not take care of bills, cooking and does not drive. She feels her memory has improved since her stroke, but still feels "foggy". She reports she is not sleeping well and has started taking melatonin as a sleep aid. Impression Pt presents with normal cognitive function and does not appear to required speech therapy services at this time. Speech Patient Assess Expression of Ideas/Wants: Expression (4) Understanding Verbal Content: Understands (4) Brief Interview-Mental Status: Yes Repetition of Three Words: Three (3) Temporal Orientation: Year: Correct (3) Temporal Orientation: Month: Accurate within 5 days(2) Temporal Orientation: Day: Correct (1) Recall : Wear to say "Sock": Yes, no cue required (2) Recall : Color: Yes, no cue required (2) Recall : Bed: Yes, no cue required (2) Memory/Recall Ability: Current season, That he or she is in a hsp/hsp unit Speech-Plan Treatment Plan Speech Therapy Treatment Plan: Discontinue ST Frequency: Modified Program (IRF) Estimated Hrs Per Day: Other Rehab Potential: Good Time Speech Therapy Time In: 13:00 Speech Therapy Time Out: 13:30 Billed Treatment Time 1, COGN TEST 30 MINS SHALONDA HERNANDEZ Oct 11, 2020 14:03
--- NOTE | 2020-10-11 14:38 | Occupational Therapy Eval ---
OT Evaluation-General/PLF Medical Diagnosis Admission Date Oct 11, 2020 at 10:41 Medical Diagnosis: Left Femur fracture with IM nail Onset Date: Oct 08, 2020 Therapy Diagnosis Therapy Diagnosis: Impaired ADLs Height/Weight Height (Feet): 5 Height (Inches): 3.00 Weight (Pounds): 174 Weight (Ounces): 12.8 Precautions Precautions/Isolations: Fall Prevention, Standard Precautions Weight Bear Status Weight Bearing Restriction: Weight Bearing/Tolerated Location Restriction: L LE Referral Physician: Dr. Mcintosh Referral Reason: Evaluation/Treatment Medical History Pertinent Medical History: Arthritis, CVA, Diverticulitis, GERD, HTN Additional Medical History R cochlear implant, PE, R SHAHNAZ Current History Pt arrived to Unit 10/11/20 from [facility]. She was admitted to [facility] following an unwitnessed fall while ambulating to her bathroom at her LTC facility ([facility]). She was indep with ADLs prior to admission and the facility performs all IADLs. She was using a FWW and does not drive. She has a walk in shower, shower chair, and grab bars throughout bathroom. Pt recently had a stroke 2 months ago. Prior to stroke, she was living alone in a house. Reviewed History: Yes Social History Home: Assisted Living Current Living Status: Alone Entry Into Home: Stairs With Railing, Level Entry ADL-Prior Level of Function SCALE: Activities may be completed with or without assistive devices. 9-Duvoeoapyz-lrcyypu completes the activity by him/herself with no assistance from a helper. 5-Set-up or Clean-up Assistance-helper sets up or cleans up; patient completes activity. [place] assists only prior to or following the activity. 4-Supervision or Touching Assistance-helper provides verbal cues and/or touch ing/steadying and/or contact guard assistance as patient completes activity. Assistance may be provided throughout the activity or intermittently. 3-Partial/Moderate Assistance-helper does LESS THAN HALF the effort. [place] lifts, holds or supports trunk or limbs, but provides less than half the effort. 2-Substantial/Maximal Assistance-helper does MORE THAN HALF the effort. [place] lifts or holds trunk or limbs and provides more than half the effort. 7-Spsalradn-lfxyzq does ALL the effort. Patient does none of the effort to complete the activity. Or, the assistance of 2 or more helpers is required for the patient to complete the activity. If activity was not attempted, code reason: 7-Patient Refused. 9-Not Applicable-not attempted and the patient did not perform the activity before the current illness, exacerbation or injury. 10-Not Attempted due to Environmental Limitations-(lack of equipment, weather restraints, etc.). 88-Not Attempted due to Medical Conditions or Safety Concerns. Self Care: Independent Functional Cognition: Needed Some Help DME/Equipment: Bath Chair, Grab Bars Pt reports having no physical residual effects from stroke but has had increased difficulty with memory and cognitive abilities. Drive Self: No OT Current Status Subjective Pt denies any pain. Agreeable to OT eval Mental Status/Objective Patient Orientation: Person, Place, Situation Repetition of commands needed at times secondary to being MI'KMAQ. Pt has a hearing aid in Left ear and cochlear implant on R. Current Glasses/Contacts: Yes Hearing Aids: Yes Hand Dominance: Right Upper Extremity ROM WFL Upper Extremity Strength 4/5 throughout ADL-Treatment Eating (QC): 5 Oral Hygiene (QC): 4 Shower/Bathe Self (QC): 3 Upper Body Dressing (QC): 4 Lower Body Dressing (QC): 3 On/Off Footwear (QC): 3 Toileting Hygiene (QC): 3 Pt sitting in recliner at OT arrival. Pt already dressed for the day but agreeable to doff/don clothing for assessment purposes. Extra time required for all ADLs and mobility secondary to slow pace. Assist to thread LLE into pants. Pt may benefit from instruction on use of citrix engineer. CGA/MIN A for safety with balance during clothing management. Shower not performed, yet anticipate pt needing min-mod a in order to wash/reach feet and steading when standing for gil care. Pt demonstrates good flexibility with RLE when donning/doffing sock, but unable to perform same ability on LLE. Assist needed to don L sock. Sit<>Stand with CGA/MIN A, extra time to extend hips. She ambulated to/from bathroom with use of walker. Pt often offloading weight onto LLE and demonstrates heavy reliance of UE support through walker when bearing weight onto RLE. Education on being WBAT, yet pt still limiting. Toilet transfer with CGA/MIN A and use of grab bars. Gil care completed in standing with steadying assist. Min a to pull clothing up due to tight fit. Grooming tasks performed following lunch. She stood at the sink with intermittent CGA for safety. Pt often relying on sink for extra stability. Good standing tolerance, but encouragement to shift more weight onto LLE. Post grooming tasks, pt verbalizes need to have BM. She attempts to walk to toilet backwards and requires cues on preferred/safe technique. Pt requests to sit longer. Pt sitting on toilet at OT departure, RN notified. Education OT Patient Education: Correct positioning, Energy conservation, Modified ADL techniques, Progress toward Goal/Update tx plan, Purpose of tx/functional activities, Reviewed precautions, Rehab process, Safety issues, Transfer techniques, Use of adapted equipment Teaching Recipient: Patient Teaching Methods: Demonstration, Discussion Response to Teaching: Verbalize Understanding, Return Demonstration, Reinforcement Needed OT Short Term Goals Short Term Goals Time Frame: Oct 18, 2020 Eatin Oral hygiene: 5 Toileting hygiene: 4 Shower/bathe self: 4 Upper body dressin Lower body dressin Putting on/taking off footwear: 4 OT Alf Goals Alf Goals Time Frame: Oct 22, 2020 Eating (QC): 6 Oral Hygiene (QC): 6 Toileting Hygiene (QC): 6 Shower/Bathe Self (QC): 5 Upper Body Dressing (QC): 6 Lower Body Dressing (QC): 6 On/Off Footwear (QC): 6 1=Demonstrate adherence to instructed precautions during ADL tasks. 2=Patient will verbalize/demonstrate understanding of assistive devices/modifications for ADL. 3=Patient will improve strength/tolerance for activity to enable patient to perform ADL's. OT Education/Plan Problem List/Assessment Assessment: Decreased Activ Tolerance, Decreased Safety Aware, Decreased UE Strength, Impaired Cognition, Impaired Funct Balance, Impaired Self-Care Skills Discharge Recommendations Plan/Recommendations: Continue POC Therapy Discharge Recommendati: Assisted Living Equpiment Recommendations-D/C: General Service Officer, Sock Aide, Toilet Riser Comment Pt has necessary shower/bathroom equipment Treatment Plan/Plan of Care Treatment,Training & Education: Yes Patient would benefit from OT for education, treatment and training to promote independence in ADL's, mobility, safety and/or upper extremity function for ADL's. Plan of Care: ADL Retraining, Functional Mobility, Group Exercise/Act as Ind, UE Funct Exercise/Act Treatment Duration: Oct 22, 2020 Frequency: At least 5 of 7 days/Wk (IRF) Estimated Hrs Per Day: 1.5 hours per day Agreement: Yes Rehab Potential: Good Time/GCodes Start Time: 11:30 ([id number]) Stop Time: 14:00 ([id number]) Total Time Billed (hr/min): 90 Billed Treatment Time Pt seen from 1130-02-14 and from [id number] 1, ADL x3, EVL 1, ADL x2 Genoveva Mccloud OT Oct 11, 2020 14:38
[2020-10-11] MEDS: ENOXAPARIN 40 MG/0.4 ML (LOVENOX) SYR SC SCH ×2 (14:47→17:09)
[2020-10-11] MEDS: SENNA W/DOCUSATE (SENOKOT S) TABLET PO SCH ×3 (14:49→21:28)
[2020-10-11] MEDS: polyethylene glycoL POWDER 17 GM (MIRALAX) PACK PO SCH ×3 (14:49→21:28)
[2020-10-11] MEDS: DOCUSATE SODIUM 100 MG (COLACE) CAP PO SCH ×3 (14:49→21:09)
--- NOTE | 2020-10-11 15:06 | Physical Therapy Daily Note ---
PT Daily Note-Current Subjective Patient in BR upon PT arrival, requested female nurse assist with cleaning. Patient agreeable to PT treatment. Mental Status Patient Orientation: Person, Place, Time, Situation Transfers SCALE: Activities may be completed with or without assistive devices. 0-Peqhzakhdz-pijvfki completes the activity by him/herself with no assistance from a helper. 5-Set-up or Clean-up Assistance-helper sets up or cleans up; patient completes activity. [place] assists only prior to or following the activity. 4-Supervision or Touching Assistance-helper provides verbal cues and/or touching/steadying and/or contact guard assistance as patient completes activity. Assistance may be provided throughout the activity or intermittently. 3-Partial/Moderate Assistance-helper does LESS THAN HALF the effort. [place] lifts, holds or supports trunk or limbs, but provides less than half the effort. 2-Substantial/Maximal Assistance-helper does MORE THAN HALF the effort. [place] lifts or holds trunk or limbs and provides more than half the effort. 2-Nbsdvmdlz-pfirgh does ALL the effort. Patient does none of the effort to complete the activity. Or, the assistance of 2 or more helpers is required for the patient to complete the activity. If activity was not attempted, code reason: 7-Patient Refused. 9-Not Applicable-not attempted and the patient did not perform the activity before the current illness, exacerbation or injury. 10-Not Attempted due to Environmental Limitations-(lack of equipment, weather restraints, etc.). 88-Not Attempted due to Medical Conditions or Safety Concerns. Sit to Stand (QC): 4 Chair/Sjt-lu-Ebqps Xfer(QC): 4 Toilet Transfer (QC): 4 Weight Bearing Left Lower Extremity: Left Weight Bearing/Tolerated Gait Training Does the Patient Walk?: Yes Distance: 30 Walk 10 feet (QC): 4 Gait Assistive Device: FWW Exercises Supine Ex: Quad Set, Glut sets Supine Reps: 20 Seated Therapy Exercises: Ankle pumps, Long arc quads, Hamstring Curls, Hip abd/add Assessment Current Status: Fair Progress Patient in BR upon PT arrival, nurse assisted with clean up then PT took exchange on patient for gait training to chair. Patient performed LE therapeutic exercise as listed above without complaint or serious difficulty. Patient in chair post treatment with all needs met, nursing notified, call light in reach. PT Short Term Goals Short Term Goals Time Frame: Oct 19, 2020 Roll Left & Right: 4 Sit to lyin Lying to sitting on side of be: 4 Sit to stand: 4 Chair/jvs-yz-jxpwz transfer: 4 Toilet transfer: 4 Car transfer: 4 Walk 10 feet: 5 Walk 50 feet with two turns: 5 Walk 150 feet: 5 Walking 10ft on uneven surface: 5 1 step (curb): 4 4 steps: 4 12 steps: 4 Picking up objects: 3 Does pt use a wc or scooter: No Wheel 50ft w/2 turns: 6 Wheel 150 feet: 6 Type: Manual PT Die Inspector Goals Retirement Goals PT Die Inspector Goals Time Frame: Nov 08, 2020 Roll Left & Right (QC): 6 Sit to Lying (QC): 6 Lying-Sitting on Side/Bed(QC): 6 Sit to Stand (QC): 6 Chair/Dqk-jj-Ngnws Xfer(QC): 6 Toilet Transfer (QC): 6 Car Transfer (QC): 6 Does the Patient Walk: Yes Walk 10 feet (QC): 6 Walk 50ft with 2 Turns (QC): 6 Walk 150 ft (QC): 6 Walking 10ft on Uneven Surface: 6 1 Step (curb) (QC): 6 4 Steps (QC): 6 12 Steps (QC): 6 Picking up an Object (QC): 6 Does the Pt use WC or Scooter?: No Wheel 50 feet with 2 turns (QC: 6 Type: Manual Wheel 150 feet: 6 Type: Manual PT Plan Treatment/Plan Treatment Plan: Continue Plan of Care Treatment Plan: Bed Mobility, Education, Functional Activity Priya, Functional Strength, Group Therapy, Gait, Safety, Therapeutic Exercise, Transfers Treatment Duration: Dec 14, 2020 Frequency: At least 5 of 7 days/Wk (IRF) Estimated Hrs Per Day: 1.5 hours per day Patient and/or Family Agrees t: Yes Safety Risks/Education Patient Education: Gait Training, Reviewed Precautions Teaching Recipient: Patient Teaching Methods: Demonstration, Discussion Response to Teaching: Verbalize Understanding, Return Demonstration Time/GCodes Time In: 1400 Time Out: 1420 Total Billed Treatment Time: 20 Total Billed Treatment Visit, Ex MOOKIE GUARDADO PT Oct 11, 2020 15:06
[2020-10-11] MEDS: PANTOPRAZOLE 20 MG TABLET (PROTONIX) PO SCH (17:09)
[2020-10-11 20:00] VITALS: BP 133/76
--- NOTE | 2020-10-11 20:29 | PM&R Post Admission Assessment ---
PM&R HP Date of Visit: Oct 11, 2020 Time of Visit: 13:00 History of Present Illness Chief complaint: Left hip fracture in need of recovery History of present illness: This is an 85-year-old white female clinic patient of mine for 17 years who has a past medical history of aortic valve replacement at [facility] complicated with stroke and recovered in inpatient rehab and was discharged home and ultimately moved to [facility] who also has a past medical history of some cognitive deficit receiving care at the outpatient [facility] unit who presents from [facility] after recovering from left hip fracture repair. She did receive 2 units of blood while hospitalized. At this current time patient feels really good and denies any significant pain. Her bowels are moving and I restarted all of her home medication. Past Irzuzaj-Ytwxxy-Cxoecn Hx Past Med/Social Hx: Reviewed Nursing Past Med/Soc Hx, Reviewed and Corrections made Patient Social History Marrital Status: Employed/Student: retired Alcohol Use: Denies Use Smoking Status: Never a Smoker Recent Hopitalizations: No Immunizations Up To Date Pediatric: Yes Date of Pneumonia Vaccine: Feb 25, 2019 Date of Influenza Vaccine: Dec 07, 2019 Seasonal Allergies Seasonal Allergies: No Past Medical History Surgeries: Abdominal, Cardiac, Ear Surgery, Gallbladder, Joint Replacement, Ort hopedic Currently Using CPAP: No Currently Using BIPAP: Yes Cardiac: Chronic Edema/Swelling, Peripheral Vascular, Valvular Heart Disease Neurological: Stroke 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: No Sexually Transmitted Disease: No HIV/AIDS: No Female 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 Disorders: Denies Menopausal Gastrointestinal: Abdominal Hernia, Gastroesophageal Reflux, Hiatal Hernia, Irritable Bowel Musculoskeletal: Arthritis, Chronic Back Pain HEENT: Cataract 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, Bilateral Hearing Aide Psychosocial: Sleep Difficulties History of Blood Disorders: No Adverse Reaction to Blood Sandhu: No Family History Diabetes mellitus 19 FATHER 19 MOTHER FH: heart disease 19 MOTHER FH: muscular dystrophy G8 BROTHER (Friedreich's Ataxia) Hypertension Myocardial infarction 19 MOTHER No Pertinent Family Hx PAST SURGICAL HISTORY: -RIGHT COCHLEAR IMPLANT -HERNIA REPAIR -CHOLECYSTECTOMY -EGD/COLONOSCOPY -LUMBAR EPIDURAL STEROID INJECTIONS -RIGHT HIP REPLACEMENT 02/05/2017 -CARDIAC CATH 2012-NO SIGNFICANT CAD, NO INTERVENTION -CARDIAC CATH 12/27/2019--NO SIGNFICANT CAD. AORTIC STENOSIS/NEED FOR VALVE REPLACEMENT; NO INTERVENTION. EF 55-65%. DONE BY DR. ELLISON Prior Level of Function Bed Mobility: 6 Transfers: 6 Gait: 6 Stairs: 6 Wheelchair Mobility: 9 Indoor Mobility (Ambulation): Independent Stairs: Independent Prior Devices Use: Walker Self Care: Independent Functional Cognition: Needed Some Help Occupation: retired Drive Self: No Current Level of Fuctioning Roll Left to Right: 3 Sit to Lyin Lying to Sitting/Side of Bed: 3 Sit to Stand: 4 Chair/Rbk-px-Vjfxy Xfer: 4 Car Transfer: 2 Does the Patient Walk: Yes Mode of Locomotion: Both Walk 10 feet: 4 Walk 50 ft with 2 Turns: 4 Walk 150 ft: 88 Walking 10ft on uneven surface: 4 Gait Assistive Device: FWW Does the Pt Use a Wheelchair: Yes Wheelchair Distance: 150 Wheel 50 ft with 2 turns: 4 Wheel 150 ft: 4 Type of Wheelchair: Manual #of Steps: 0 1 Step (curb): 88 4 Steps: 88 12 Steps: 88 Picking up an Object: 88 Eatin Oral Hygiene: 4 Shower/Bathe Self: 3 Upper Body Dressin Lower Body Dressin On/Off Footwear: 3 Toileting Hygiene: 3 PM&R Allergy/Meds/Data Review Allergies Coded Allergies: No Known Drug Allergies (Unverified , 02/04/17) Home Medications Scheduled Ciprofloxacin HCl (Cipro), 500 MG PO BID, (Reported) Melatonin (Melatonin), 3 MG PO HS, (Reported) Omeprazole (Omeprazole), 20 MG PO 0700,1600, (Reported) Rivaroxaban (Xarelto), 20 MG PO DAILY, (Reported) Venlafaxine HCl (Venlafaxine HCl ER), 150 MG PO DAILY, (Reported) Scheduled PRN Docusate Sodium (Docusate Sodium), 100 MG PO BID PRN for CONSTIPATION-1ST LINE, (Reported) Tramadol HCl (Tramadol HCl), 50-100 MG PO Q6H PRN for PAIN-MODERATE (5-7), (Reported) Discontinued Medications Acetaminophen (Tylenol), 650 MG PO Q4H PRN for PAIN-MILD (1-4), (Reported) Discontinued Reason: No Longer Taking Aspirin (Aspirin EC), 81 MG PO DAILY Discontinued Reason: No Longer Taking Current Medications Current Medications Reviewed Review of Systems Constitutional: see HPI, malaise, weakness EENTM: no symptoms reported Respiratory: no symptoms reported Cardiovascular: no symptoms reported Gastrointestinal: no symptoms reported Genitourinary: no symptoms reported Musculoskeletal: back pain, joint pain Skin: no symptoms reported Psychiatric/Neurological: No Symptoms Reported All Other Systems Reviewed Negative Unless Noted: Yes Physical Exam Physical Exam Vital Signs Vital Signs - First Documented 10/11/20 11:02 Temp 36.6 Pulse 80 Resp 18 B/P (MAP) 148/64 (92) Pulse Ox 99 O2 Delivery Room Air Capillary Refill : Height, Weight, BMI Height: 5'3.00" Weight: 174lbs. 12.8oz. 79.872189ws; 24.21 BMI Method:Stated General Appearance: No Apparent Distress, WD/WN, Chronically ill Eyes: Bilateral Eye Normal Inspection, Bilateral Eye PERRL HEENT: PERRL/EOMI, Normal ENT Inspection, Pharynx Normal Neck: Full Range of Motion, Normal Inspection, Non Tender, Supple, Carotid Bruit Respiratory: Chest Non Tender, Lungs Clear, Normal Breath Sounds, No Accessory Muscle Use, No Respiratory Distress Cardiovascular: Regular Rate, Rhythm, No Edema, No Gallop, No JVD, No Murmur, Normal Peripheral Pulses Gastrointestinal: Normal Bowel Sounds, No Organomegaly, No Pulsatile Mass, Non Tender, Soft Back: Normal Inspection, No CVA Tenderness, No Vertebral Tenderness Extremity: Normal Capillary Refill, Normal Inspection, Normal Range of Motion (Except left leg), Non Tender, No Calf Tenderness, No Pedal Edema Neurologic/Psychiatric: Alert, Oriented x3, No Motor/Sensory Deficits, Normal Mood/Affect, 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 Norm as Tested, Abnormal Gait, Motor Weakness (Left leg) Skin: Normal Color, Warm/Dry Lymphatic: No Adenopathy PM&R Medical Assessment & Plan REHAB/MEDICAL ASSESSMENT AND PLAN: REHAB IMPAIRMENT GROUP: Left hip fracture ETIOLOGIC DIAGNOSIS: Left hip fracture The comorbidities that impact the patients function and/or functional outcome by: Advanced age, recent CVA following aortic valve replacement, history of PE REHAB PLAN: The patient is being admitted to our comprehensive inpatient rehabilitation facility and can tolerate the intensity of service consisting of at least: 180 minutes of therapy a day, 5 out of 7 days a week Rehab treatment will consist of: PT and OT will focus on regaining enough function with assistive devices and increase ADLs in order to return back to assisted living The patient/family has a good understanding of our discharge process and will benefit from an interdisciplinary inpatient rehabilitation program. The patient has potential to make improvement and is in need of at least two of the following multidisciplinary therapies including but not limited to physical, occupational, speech, and prosthetics and orthotics. Additionally the patient will need services from respiratory, nutritional services, wound care, psychology, etc. (Customize this to each patient). Given the patients complex condition and risk of further medical complications, rehabilitation services cannot be safely or effectively provided at a lower level of care such as a shelter facility. BARRIERS TO DISCHARGE: Fall risk ESTIMATED LOS: 10 days DISPOSITION: Assisted living RELEVANT CHANGES SINCE PREADMISSION SCREENING: I have compared the patients medical and functional status at the time of the preadmission screening and there are: No changes PROGNOSIS: Good REHABILITATION GOALS: 1. PT and OT will focus on regaining enough function with assistive devices and increase ADLs in order to return back to assisted living All the above goals were reviewed with the patient and he/she is in agreement. By signing this document, I acknowledge that I have personally performed a full physical examination on this patient within 24 hours of admission to this inpatient rehabilitation facility and have determined the patient to be able to tolerate the above course of treatment at an intensive level for a reasonable period of time. I will be completing a detailed individualized Plan of Care for this patient by day #4 of the patients stay based upon the Preadmission Screen, the Post-Admission Evaluation, and the therapy evaluations. 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
[2020-10-11] MEDS: CIPROFLOXACIN 500 MG (CIPRO) TABLET PO SCH (21:09)
[2020-10-11] MEDS: MELATONIN 3 MG TABLET PO SCH (21:09)
[2020-10-12] MEDS: ACETAMINOPHEN 325 MG TABLET PO PRN (06:35)
[2020-10-12] MEDS: PANTOPRAZOLE 20 MG TABLET (PROTONIX) PO SCH ×2 (06:35→16:23)
[2020-10-12 06:50] LABS: BASOPHILS % (AUTO) 0 % (0-10); EOSINOPHILS # (AUTO) 0.1 10^3/uL (0.0-0.3); EOSINOPHILS % (AUTO) 1 % (0-10); HEMATOCRIT 31 % (35-52); HEMOGLOBIN 9.9 g/dL (11.5-16.0); LYMPHOCYTES # (AUTO) 0.9 10^3/uL (1.0-4.0); LYMPHOCYTES % (AUTO) 16 % (12-44); MEAN CORPUSCULAR HEMOGLOBIN 30 pg (25-34); MEAN CORPUSCULAR HGB CONC 32 g/dL (32-36); MEAN CORPUSCULAR VOLUME 95 fL (80-99); MEAN PLATELET VOLUME 10.1 fL (9.0-12.2); MONOCYTES # (AUTO) 0.5 10^3/uL (0.0-1.0); MONOCYTES % (AUTO) 8 % (0-12); NEUTROPHILS # (AUTO) 3.9 10^3/uL (1.8-7.8); NEUTROPHILS % (AUTO) 73 % (42-75); PLATELET COUNT 177 10^3/uL (130-400); WHITE BLOOD COUNT 5.4 10^3/uL (4.3-11.0)
[2020-10-12 06:53] LABS: ALBUMIN 3.1 GM/DL (3.2-4.5); POTASSIUM 3.5 MMOL/L (3.6-5.0)
[2020-10-12 06:55] LABS: TOTAL PROTEIN 5.7 GM/DL (6.4-8.2)
[2020-10-12 06:57] LABS: BILIRUBIN,TOTAL 1.1 MG/DL (0.1-1.0)
[2020-10-12 06:59] LABS: CREATININE SERUM 0.65 MG/DL (0.60-1.30)
[2020-10-12 07:47] VITALS: BP 132/59
[2020-10-12] MEDS: CIPROFLOXACIN 500 MG (CIPRO) TABLET PO SCH ×2 (08:27→20:38)
[2020-10-12] MEDS: DOCUSATE SODIUM 100 MG (COLACE) CAP PO SCH ×2 (08:27→20:39)
[2020-10-12] MEDS: VENlafaxine XR 75 MG (EFFEXOR XR) CAP PO SCH (08:30)
[2020-10-12] MEDS: polyethylene glycoL POWDER 17 GM (MIRALAX) PACK PO SCH ×2 (08:30→20:54)
[2020-10-12] MEDS: SENNA W/DOCUSATE (SENOKOT S) TABLET PO SCH ×2 (08:31→20:54)
--- NOTE | 2020-10-12 09:21 | PM&R Progress Note ---
Subjective HPI/CC On Admission Date Seen by Provider: Oct 12, 2020 Time Seen by Provider: 12:30 Subjective/Events-last exam 10/12/2020: Pt having a headache, Tylenol give RT will set up her BiPAP Hgb 9.[address] Wade to evaluate heart that they were concerned about during her hip fracture repair Review of Systems General: Fatigue, Malaise Musculoskeletal: leg pain Objective Exam Vital Signs Vital Signs Date Time Temp Pulse Resp B/P (MAP) Pulse Ox O2 Delivery O2 Flow Rate FiO2 10/12/20 20:00 36.5 89 16 114/54 (74) 96 Room Air Capillary Refill : General Appearance: No Apparent Distress, WD/WN, Chronically ill HEENT: PERRL/EOMI, Normal ENT Inspection, Pharynx Normal Neck: Full Range of Motion, Normal Inspection, Non Tender, Supple, Carotid Bruit Respiratory: Chest Non Tender, Lungs Clear, Normal Breath Sounds, No Accessory Muscle Use, No Respiratory Distress Cardiovascular: Regular Rate, Rhythm, No Edema, No Gallop, No JVD, No Murmur, Normal Peripheral Pulses Gastrointestinal: Normal Bowel Sounds, No Organomegaly, No Pulsatile Mass, Non Tender, Soft Back: Normal Inspection, No CVA Tenderness, No Vertebral Tenderness Extremity: Normal Capillary Refill, Normal Inspection, Normal Range of Motion (Except left leg), Non Tender, No Calf Tenderness, No Pedal Edema Neurologic/Psychiatric: Alert, Oriented x3, No Motor/Sensory Deficits, Normal Mood/Affect, 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 FIM Transfers Therapy Code Descriptions/Definitions Functional [place] Measure: 0=Not Assessed/NA 4=Minimal Assistance 1=Total Assistance 5=Supervision or Setup 2=Maximal Assistance 6=Modified [place] 3=Moderate Assistance 7=Complete IndependenceSCALE: Activities may be completed with or without assistive devices. 3-Tuneopsnvo-ngpiduw completes the activity by him/herself with no assistance from a helper. 5-Set-up or Clean-up Assistance-helper sets up or cleans up; patient completes activity. [place] assists only prior to or following the activity. 4-Supervision or Touching Assistance-helper provides verbal cues and/or touching/steadying and/or contact guard assistance as patient completes activity. Assistance may be provided throughout the activity or intermittently. 3-Partial/Moderate Assistance-helper does LESS THAN HALF the effort. [place] lifts, holds or supports trunk or limbs, but provides less than half the effort. 2-Substantial/Maximal Assistance-helper does MORE THAN HALF the effort. [place] lifts or holds trunk or limbs and provides more than half the effort. 3-Nysgsyzvl-iwnxjk does ALL the effort. Patient does none of the effort to com plete the activity. Or, the assistance of 2 or more helpers is required for the patient to complete the activity. If activity was not attempted, code reason: 7-Patient Refused. 9-Not Applicable-not attempted and the patient did not perform the activity before the current illness, exacerbation or injury. 10-Not Attempted due to Environmental Limitations-(lack of equipment, weather restraints, etc.). 88-Not Attempted due to Medical Conditions or Safety Concerns. Roll Left to Right (QC): 3 Sit to Lying (QC): 3 Sit to Stand (QC): 4 Chair/Rar-ot-Sizjx Xfer(QC): 4 Car Transfer (QC): 2 Gait Training Does the Patient Walk?: Yes Distance: 30 Walk 10 feet (QC): 4 Walk 50 ft with 2 Turns(QC): 4 Walk 150 ft (QC): 88 Walking 10ft/uneven surface-QC: 4 Gait Assistive Device: FWW Wheelchair Training Does the Pt Use a Wheelchair?: Yes Distance: 150 Wheel 50 ft with 2 turns (QC): 4 Wheel 150 ft (QC): 4 Type of Wheelchair: Manual Stair Training #of Steps: 0 1 Step (curb) (QC): 88 4 Steps (QC): 88 12 Steps (QC): 88 Balance Picking up an Object (QC): 88 ADL-Treatment Eating (QC): 5 Oral Hygiene (QC): 4 Shower/Bathe Self (QC): 3 Upper Body Dressing (QC): 4 Lower Body Dressing (QC): 3 On/Off Footwear (QC): 3 Toileting Hygiene (QC): 3 Assessment/Plan Assessment and Plan Assess & Plan/Chief Complaint Assessment: Status post left hip fracture status post repair at [facility] Acute blood loss anemia requiring 2 units of blood at [facility] 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 History of TVAR Temple 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
--- NOTE | 2020-10-12 09:21 | Individualized Plan of Care ---
Individualized Plan of Care Rehab Nursing IPOC Order Admission Date Oct 11, 2020 at 10:41 Current Orders Orders Admission Order(Inpt,Obs,Sdc) (10/10/20 17:52) Vital Signs: Per Unit Policy ( ,16,00 (10/10/20 17:52) Nirmal Boles (10/10/20 17:52) Sequential Compression Device .admit (10/10/20 17:52) Online Marketer-Inpt Rehab Con (10/10/20 17:52) Rehab Nursing Orders-Ipoc (10/10/20 17:52) Physical Therapy Rehab Orders (10/10/20 17:52) Occupational Therapy Rehab Ord (10/10/20 17:52) Speech Therapy Rehab Orders (10/10/20 17:52) Cbc With Automated Diff (10/12/20 06:00) Comprehensive Metabolic Panel (10/12/20 06:00) Precautions (Aru) (10/10/20 17:52) Weekly Weight WEEK (10/10/20 17:52) Rehab-Intensity Of Therapy (10/10/20 17:52) Initiate Admission Nursing Pro .admission (10/10/20 17:52) Alprazolam Tablet (Xanax Tablet) (10/10/20 18:00) Calcium Carbonate Chew Tablet (Antacid C (10/10/20 18:00) Diphenhydramine Tablet (Benadryl Tablet) (10/10/20 18:00) Docusate Sodium Capsule (Colace Capsule) (10/10/20 21:00) Docusate Sodium Capsule (Colace Capsule) (10/10/20 18:00) Bisacodyl Suppository (Dulcolax Supposit (10/10/20 18:00) Lactulose Oral Solution (Enulose Oral So (10/10/20 18:00) Na Phos/Na Biphos Enema (Fleet Enema Giovanni (10/10/20 18:00) Guaifenesin/Codeine Syrup (Robitussin Ac (10/10/20 18:00) Loperamide Tablet (Imodium Tablet) (10/10/20 18:00) Enoxaparin Injection (Lovenox Injection) (10/10/20 18:00) Melatonin Tablet (Melatonin Tablet) (10/10/20 18:00) Polyethylene Glycol Powder Pkt (Miralax (10/10/20 21:00) Ondansetron Oral Dissolve Tab (Zofran (10/10/20 18:00) Senna S Tablet (Senokot S Tablet) (10/10/20 21:00) Initiate Admission Nursing Pro .admission (10/10/20 17:52) Admission Arrival Bed Request (10/11/20 10:40) General/Regular (10/11/20 Lunch) Ciprofloxacin Tablet (Cipro Tablet) (10/11/20 21:00) Docusate Sodium Capsule (Colace Capsule) (10/11/20 13:00) Melatonin Tablet (Melatonin Tablet) (10/11/20 21:00) Rivaroxaban Tablet (Xarelto Tablet) (10/12/20 09:00) Rx-Tramadol Hcl (Rx-Ultram) (10/11/20 13:00) Venlafaxine Xr Capsule (Effexor Xr Capsu (10/12/20 09:00) Tramadol Tablet (Ultram Tablet) (10/11/20 13:00) Pantoprazole Tablet (Protonix Tablet) (10/11/20 16:00) Patient Visit (10/11/20 ) Cognitive Test Per Hour (10/11/20 ) Patient Visit (10/11/20 ) Pt Eval Low Complexity (10/11/20 ) Exercise Therap, Ea 15 Min (10/11/20 ) Gait Training, Ea 15 Min (10/11/20 ) Wheelchair Mgmt/Propulsn 15min (10/11/20 ) Dressing Order (Intervention) DAILY (10/12/20 09:00) Acetaminophen Tablet/Caplet (Tylenol T (10/12/20 06:30) Patient Visit (10/12/20 ) Gait Training, Ea 15 Min (10/12/20 ) Exercise Therap, Ea 15 Min (10/12/20 ) Functional Activities, Ea 15 (10/12/20 ) Rehab Nursing Orders: Ongoing Assess. of Cognitive Status, Ongoing Assess. of Function Status, Bladder Management, Bladder Scan, Bladder Training, Bowel Management, Bowel Training, Disease Management & Educaiton, DVT Prophylaxis, Fall Prevention, Fluid/Electrolyte/Nutrition Mgmt, Infection Prevention, Medication Management & Education, Management of Risks & Complications, Nutrition Management, Pain Management, Patient/Family Support, Safety Management, Swallow Precautions Intensity of Therapy to be met Patient to be seen: Min.3h per day/5 of 7d PT IPOC Problem List: Activity Tolerance, Functional Strength, Safety Treatment Plan: Continue Plan of Care Bed Mobility, Education, Functional Activity Priya, Functional Strength, Group Therapy, Gait, Safety, Therapeutic Exercise, Transfers Treatment Duration: Dec 14, 2020 Frequency: At least 5 of 7 days/Wk (IRF) Estimated Hrs Per Day: 1.5 hours per day OT IPOC Problems: Decreased Activ Tolerance, Decreased Safety Aware, Decreased UE Strength, Impaired Cognition, Impaired Funct Balance, Impaired Self-Care Skills OT Treatment, Training and Edu: Yes Plan of Care: ADL Retraining, Functional Mobility, Group Exercise/Act as Ind, UE Funct Exercise/Act Treatment Duration: Oct 22, 2020 Frequency: At least 5 of 7 days/Wk (IRF) Estimated Hrs Per Day: 1.[address] IPOC Speech Therapy Treatment Plan: Discontinue ST Treatment Duration: Oct 12, 2020 Frequency: Modified Program (IRF) Estimated Hrs Per Day: Other Online Marketer/Case Mgmt Online Marketer/Case Managemen: Discharge Planning Dietitian/[place] Dietitian/[place] to monitor nutritional status and make changes and/or recommendations as needed and work with speech pathology on dietary upgrades as the occur. Physician IPOC Medical Issues being managed closely and that require the 24 hour availability of a physician: Recent hip fracture with fairly recent CVA with memory loss and history of massive PE on Xarelto will require close monitoring for decompensation Medical Issues: Bowel/Bladder Function, DVT Prophylaxis, Falls Precautions, Fluid/Electrolyte/Nutrition Balance, Infection Protection, Pain Management, Wound Care Brief Synthesis of Preadmission Screen, Post-Admission Evaluation, and Therapy Evaluations: PT OT will focus on ambulation with assistive devices along with fall risk prevention in order to regain enough function to go back to assisted living Medical Prognosis: Good Anticipated Length of Stay: 14 days DUNG KEYS DO Oct 12, 2020 09:21
[2020-10-12] MEDS: RIVAROXABAN 20 MG TABLET (XARELTO) PO SCH (09:55)
--- NOTE | 2020-10-12 10:19 | Physical Therapy Daily Note ---
PT Daily Note-Current Subjective Pt in recliner upon arrival with daughter and RN in room. Pt agrees to PT. Throughout tx, pt states slight pain in L thight rated at 6/10. Pain Numeric Pain Scale: 6 Location: Left Location Body Site: Thigh Pain Description: Ache Mental Status Patient Orientation: Person, Place, Time, Situation Transfers SCALE: Activities may be completed with or without assistive devices. 2-Wshvlmpnnw-vtedqro completes the activity by him/herself with no assistance from a helper. 5-Set-up or Clean-up Assistance-helper sets up or cleans up; patient completes activity. [place] assists only prior to or following the activity. 4-Supervision or Touching Assistance-helper provides verbal cues and/or touching/steadying and/or contact guard assistance as patient completes act ivity. Assistance may be provided throughout the activity or intermittently. 3-Partial/Moderate Assistance-helper does LESS THAN HALF the effort. [place] lifts, holds or supports trunk or limbs, but provides less than half the effort. 2-Substantial/Maximal Assistance-helper does MORE THAN HALF the effort. [place] lifts or holds trunk or limbs and provides more than half the effort. 1-Zbvdjnqgs-oeefpd does ALL the effort. Patient does none of the effort to complete the activity. Or, the assistance of 2 or more helpers is required for the patient to complete the activity. If activity was not attempted, code reason: 7-Patient Refused. 9-Not Applicable-not attempted and the patient did not perform the activity before the current illness, exacerbation or injury. 10-Not Attempted due to Environmental Limitations-(lack of equipment, weather restraints, etc.). 88-Not Attempted due to Medical Conditions or Safety Concerns. Sit to Stand (QC): 3 Pt requires ModA with sit to stand d/t weakness in L LE. Weight Bearing Left Lower Extremity: Left Weight Bearing/Tolerated Gait Training Does the Patient Walk?: Yes Distance: 150' x2 Walk 10 feet (QC): 4 Walk 50 ft with 2 Turns(QC): 4 Walk 150 ft (QC): 4 Gait Assistive Device: FWW Pt amb from room to therapy gym, requiring Alexey d/t unsteady gait. Pt has antalgic gait, shuffling noted. Pt instructed to flex L knee, but pt compensated w vaulting of R LE to A clearing L LE with swing through. Wheelchair Training Does the Pt Use a Wheelchair?: No Exercises Supine Ex: Quad Set Supine Reps: 10 Seated Therapy Exercises: Ankle pumps, Sit to stand, Long arc quads, Hip flexion, Hamstring Curls, Hip abd/add, Glut set Seated Reps: 10 Ex involving L LE required A from BALANCER SCALE d/t weakness and pain. Treatments Upon arrival, pt requested to use BR. Pt able to don/doff pants with Alexey to A with standing balance. Pt amb from room, around unit, to therapy gym. Pt took seated RB, followed by seated ex. Pt required frequent RB throughout ex. Pt amb back to room and returned to recliner. Pt then performed supine ex. Pt left in recliner with all needs met, call light in hand. Assessment Current Status: Good Progress Pt has low activity tolerance, and is limited by pain. PT Short Term Goals Short Term Goals Time Frame: Oct 19, 2020 Roll Left & Right: 4 Sit to lyin Lying to sitting on side of be: 4 Sit to stand: 4 Chair/kar-rx-okzit transfer: 4 Toilet transfer: 4 Car transfer: 4 Walk 10 feet: 5 Walk 50 feet with two turns: 5 Walk 150 feet: 5 Walking 10ft on uneven surface: 5 1 step (curb): 4 4 steps: 4 12 steps: 4 Picking up objects: 3 Does pt use a wc or scooter: No Wheel 50ft w/2 turns: 6 Wheel 150 feet: 6 Type: Manual PT Burnisher And Bumper Goals Burnisher And Bumper Goals PT Burnisher And Bumper Goals Time Frame: Nov 08, 2020 Roll Left & Right (QC): 6 Sit to Lying (QC): 6 Lying-Sitting on Side/Bed(QC): 6 Sit to Stand (QC): 6 Chair/Myg-yu-Zksqp Xfer(QC): 6 Toilet Transfer (QC): 6 Car Transfer (QC): 6 Does the Patient Walk: Yes Walk 10 feet (QC): 6 Walk 50ft with 2 Turns (QC): 6 Walk 150 ft (QC): 6 Walking 10ft on Uneven Surface: 6 1 Step (curb) (QC): 6 4 Steps (QC): 6 12 Steps (QC): 6 Picking up an Object (QC): 6 Does the Pt use WC or Scooter?: No Wheel 50 feet with 2 turns (QC: 6 Type: Manual Wheel 150 feet: 6 Type: Manual PT Plan Problem List Problem List: Activity Tolerance, Functional Strength, Safety, Gait Treatment/Plan Treatment Plan: Continue Plan of Care Treatment Plan: Bed Mobility, Education, Functional Activity Priya, Functional Strength, Group Therapy, Gait, Safety, Therapeutic Exercise, Transfers Treatment Duration: Dec 14, 2020 Frequency: At least 5 of 7 days/Wk (IRF) Estimated Hrs Per Day: 1.5 hours per day Patient and/or Family Agrees t: Yes Safety Risks/Education Patient Education: Gait Training, Transfer Techniques, Correct Positioning, Safety Issues Teaching Recipient: Patient Teaching Methods: Demonstration, Discussion Response to Teaching: Verbalize Understanding, Return Demonstration Time/GCodes Time In: 900 Time Out: 1000 Total Billed Treatment Time: 60 Total Billed Treatment 1, GTx2, EX, ANGEL PAGE BALANCER SCALE Oct 12, 2020 10:19
--- NOTE | 2020-10-12 12:13 | Occupational Ther Daily Note ---
OT Current Status-Daily Note Subjective Pt denies any pain Mental Status/Objective Patient Orientation: Person, Place, Situation ADL-Treatment Therapy Code Descriptions/Definitions Functional [place] Measure: 0=Not Assessed/NA 4=Minimal Assistance 1=Total Assistance 5=Supervision or Setup 2=Maximal Assistance 6=Modified [place] 3=Moderate Assistance 7=Complete IndependenceSCALE: Activities may be completed with or without assistive devices. 5-Ygyqjuddgi-vnoxdru completes the activity by him/herself with no assistance from a helper. 5-Set-up or Clean-up Assistance-helper sets up or cleans up; patient completes activity. [place] assists only prior to or following the activity. 4-Supervision or Touching Assistance-helper provides verbal cues and/or touching/steadying and/or contact guard assistance as patient completes ac tivity. Assistance may be provided throughout the activity or intermittently. 3-Partial/Moderate Assistance-helper does LESS THAN HALF the effort. [place] lifts, holds or supports trunk or limbs, but provides less than half the effort. 2-Substantial/Maximal Assistance-helper does MORE THAN HALF the effort. [place] lifts or holds trunk or limbs and provides more than half the effort. 4-Rryghewws-szynen does ALL the effort. Patient does none of the effort to complete the activity. Or, the assistance of 2 or more helpers is required for the patient to complete the activity. If activity was not attempted, code reason: 7-Patient Refused. 9-Not Applicable-not attempted and the patient did not perform the activity before the current illness, exacerbation or injury. 10-Not Attempted due to Environmental Limitations-(lack of equipment, weather restraints, etc.). 88-Not Attempted due to Medical Conditions or Safety Concerns. Bathing Location: L Arm, R Arm, L Upper Leg, R Upper Leg, L Lower Leg (including foot), R Lower Leg (including foot), Chest, Abdomen, Buttocks, Perineal Area Shower/Bathe Self (QC): 3 (mod) Upper Body Dressing (QC): 3 (Min A for bra only. See below for comments. ) Lower Body Dressing (QC): 3 (Min A) On/Off Footwear: 3 (Min A) Toileting Hygiene (QC): 4 (CGA) Toilet Transfer (QC): 3 (Min A for initial boost off toilet) Shower performed; majority completed in sitting. Pt stood only briefly to wash gil area and buttocks with 0-1 UE support on grab bar. Close sup-cga for safety when standing. Pt able to reach posteriorly to wash backside, yet requires min a for thoroughness. She sat to wash all other body parts. Several cues required to initiate washing as well as initiate use of soap. Pt often appears confused on next step and returns hand held to back of neck. Zero initiation to wash lower body. Assist to wash below L knee secondary to impaired flexibility. Clothing donned seated in w/c. Cues to initiate LLE first into clothing for improved ease of task. Pt reports using a handbell choir director in the past with old hip replacement, yet required mod cues for correct use. Post instruction, pt continued to need min cues for correct sequencing. Min a to thread LLE into LB clothing with use of handbell choir director and single UE support to lift foot off floor. MIn a for sit>stand. Once standing, pt able to maintain balance and manage clothing over hips with CGA. Initially, pt attempts to fasten bra in back yet was unsuccessful. Cues for problem solving different technique. Post cues, pt able to fasten bra in front, yet requires min a to twist around torso secondary to still being slightly damp. Pt able to thread UE's into straps without assist. No physical assist to don shirt. She sat in w/c to blow dry and comb hair. Other Treatment Ot issued pt yellow theraband for UE exercises. Focus on improving strength and endurance needed for ADLs and transfers. Pt completed shoulder flexion and elbow extension only. 1 x25, BUE. Ot will continue to work on strengthening in future sessions. Education OT Patient Education: Energy conservation, Exercise program, Modified ADL techniques, Progress toward Goal/Update tx plan, Purpose of tx/functional activities, Rehab process, Safety issues, Transfer techniques, Use of adapted equipment Teaching Recipient: Patient Teaching Methods: Demonstration, Discussion Response to Teaching: Verbalize Understanding, Return Demonstration, Reinforcement Needed OT Short Term Goals Short Term Goals Time Frame: Oct 18, 2020 Eatin Oral hygiene: 5 Toileting hygiene: 4 Shower/bathe self: 4 Upper body dressin Lower body dressin Putting on/taking off footwear: 4 OT Sports Equipment Supervisor Goals Jail Goals Time Frame: Oct 22, 2020 Eating (QC): 6 Oral Hygiene (QC): 6 Toileting Hygiene (QC): 6 Shower/Bathe Self (QC): 5 Upper Body Dressing (QC): 6 Lower Body Dressing (QC): 6 On/Off Footwear (QC): 6 1=Demonstrate adherence to instructed precautions during ADL tasks. 2=Patient will verbalize/demonstrate understanding of assistive devices/modifications for ADL. 3=Patient will improve strength/tolerance for activity to enable patient to perform ADL's. OT Education/Plan Problem List/Assessment Assessment: Decreased Activ Tolerance, Decreased Safety Aware, Decreased UE Strength, Impaired Cognition, Impaired Funct Balance, Impaired Self-Care Skills Discharge Recommendations Plan/Recommendations: Continue POC Equpiment Recommendations-D/C: Packaging Machine Supplies Distributor Treatment Plan/Plan of Care Treatment,Training & Education: Yes Patient would benefit from OT for education, treatment and training to promote independence in ADL's, mobility, safety and/or upper extremity function for ADL's. Plan of Care: ADL Retraining, Functional Mobility, Group Exercise/Act as Ind, UE Funct Exercise/Act Treatment Duration: Oct 22, 2020 Frequency: At least 5 of 7 days/Wk (IRF) Estimated Hrs Per Day: 1.5 hours per day Agreement: Yes Rehab Potential: Good Time/GCodes Start Time: 10:30 Stop Time: 12:00 Total Time Billed (hr/min): 90 Billed Treatment Time 1, ADL x5 (80) 1, EX x1 (10) Genoveva Mccloud OT Oct 12, 2020 12:13
--- NOTE | 2020-10-12 13:33 | Physical Therapy Daily Note ---
PT Daily Note-Current Subjective Pt in recliner and agrees to tx. Pt states pain in L thigh 9/10. Pain Numeric Pain Scale: 9 Location: Left Location Body Site: Thigh Pain Description: Ache Mental Status Patient Orientation: Person, Place, Time, Situation Transfers SCALE: Activities may be completed with or without assistive devices. 6-Vnfxzuizsw-vnhibjn completes the activity by him/herself with no assistance from a helper. 5-Set-up or Clean-up Assistance-helper sets up or cleans up; patient completes activity. [place] assists only prior to or following the activity. 4-Supervision or Touching Assistance-helper provides verbal cues and/or touching/steadying and/or contact guard assistance as patient completes activity. Assistance may be provided throughout the activity or intermittently. 3-Partial/Moderate Assistance-helper does LESS THAN HALF the effort. [place] lifts, holds or supports trunk or limbs, but provides less than half the effort. 2-Substantial/Maximal Assistance-helper does MORE THAN HALF the effort. [place] lifts or holds trunk or limbs and provides more than half the effort. 3-Liencqzko-lbvemr does ALL the effort. Patient does none of the effort to complete the activity. Or, the assistance of 2 or more helpers is required for the patient to complete the activity. If activity was not attempted, code reason: 7-Patient Refused. 9-Not Applicable-not attempted and the patient did not perform the activity before the current illness, exacerbation or injury. 10-Not Attempted due to Environmental Limitations-(lack of equipment, weather restraints, etc.). 88-Not Attempted due to Medical Conditions or Safety Concerns. Sit to Stand (QC): 4 Weight Bearing Left Lower Extremity: Left Weight Bearing/Tolerated Gait Training Does the Patient Walk?: Yes Distance: 150', 125' Walk 10 feet (QC): 4 Walk 50 ft with 2 Turns(QC): 4 Walk 150 ft (QC): 4 Gait Persons Needed: 1 Gait Assistive Device: FWW Pt amb w antalgic and shuffling gait. VC given to DF L ankle and flex L knee, but pt cont. to drag foot. Pt required frequent rest breaks during amb. Exercises Supine Ex: Quad Set, Heel Slides, Short Arc Quads, Straight leg raise, Hip abd/add Supine Reps: 5 Seated Therapy Exercises: Ankle pumps, Long arc quads, Hip flexion Seated Reps: 5 Pt given HEP per pt request, UNDER GROUND MINER reviewed ex w pt. Treatments Pt performed HEP ex, requiring ModA from UNDER GROUND MINER on L LE during hip flexion, SLR, hip abd/add, and heel slides. Pt instructed on active-assist hip flexion using towel. Post ex, pt amb around rehab unit, then returned to recliner. Pt left in recliner with all needs met, call light in hand. Assessment Current Status: Good Progress Pt exhibits poor activity tolerance, weakness in L LE, and limited by pain. PT Short Term Goals Short Term Goals Time Frame: Oct 19, 2020 Roll Left & Right: 4 Sit to lyin Lying to sitting on side of be: 4 Sit to stand: 4 Chair/xvn-dr-jhhcr transfer: 4 Toilet transfer: 4 Car transfer: 4 Walk 10 feet: 5 Walk 50 feet with two turns: 5 Walk 150 feet: 5 Walking 10ft on uneven surface: 5 1 step (curb): 4 4 steps: 4 12 steps: 4 Picking up objects: 3 Does pt use a wc or scooter: No Wheel 50ft w/2 turns: 6 Wheel 150 feet: 6 Type: Manual PT Auto Damage Estimator Goals Auto Damage Estimator Goals PT Auto Damage Estimator Goals Time Frame: Nov 08, 2020 Roll Left & Right (QC): 6 Sit to Lying (QC): 6 Lying-Sitting on Side/Bed(QC): 6 Sit to Stand (QC): 6 Chair/Cls-au-Euttw Xfer(QC): 6 Toilet Transfer (QC): 6 Car Transfer (QC): 6 Does the Patient Walk: Yes Walk 10 feet (QC): 6 Walk 50ft with 2 Turns (QC): 6 Walk 150 ft (QC): 6 Walking 10ft on Uneven Surface: 6 1 Step (curb) (QC): 6 4 Steps (QC): 6 12 Steps (QC): 6 Picking up an Object (QC): 6 Does the Pt use WC or Scooter?: No Wheel 50 feet with 2 turns (QC: 6 Type: Manual Wheel 150 feet: 6 Type: Manual PT Plan Treatment/Plan Treatment Plan: Continue Plan of Care Treatment Plan: Bed Mobility, Education, Functional Activity Priya, Functional Strength, Group Therapy, Gait, Safety, Therapeutic Exercise, Transfers Treatment Duration: Dec 14, 2020 Frequency: At least 5 of 7 days/Wk (IRF) Estimated Hrs Per Day: 1.5 hours per day Patient and/or Family Agrees t: Yes Safety Risks/Education Patient Education: Gait Training, Issued Written HEP, Correct Positioning Teaching Recipient: Patient Teaching Methods: Demonstration, Discussion Response to Teaching: Verbalize Understanding, Return Demonstration Time/GCodes Time In: 1300 Time Out: 1330 Total Billed Treatment Time: 30 Total Billed Treatment 1, GT, EX ANGEL NYE UNDER GROUND MINER Oct 12, 2020 13:33
[2020-10-12 20:00] VITALS: BP 114/54
[2020-10-12] MEDS: MELATONIN 3 MG TABLET PO SCH (20:39)
[2020-10-13] MEDS: PANTOPRAZOLE 20 MG TABLET (PROTONIX) PO SCH ×2 (06:30→16:43)
[2020-10-13] MEDS: ACETAMINOPHEN 325 MG TABLET PO PRN (06:30)
--- NOTE | 2020-10-13 06:46 | PM&R Progress Note ---
Subjective HPI/CC On Admission Date Seen by Provider: Oct 13, 2020 Time Seen by Provider: 12:30 Subjective/Events-last exam 10/13/2020: Patient doing really well Use BiPAP last night Bowels moved yesterday Pain is well controlled 10/12/2020: Pt having a headache, Tylenol give RT will set up her BiPAP Hgb 9.[address] Wade to evaluate heart that they were concerned about during her hip fracture repair Review of Systems General: Fatigue Musculoskeletal: leg pain Objective Exam Vital Signs Vital Signs Date Time Temp Pulse Resp B/P (MAP) Pulse Ox O2 Delivery O2 Flow Rate FiO2 10/13/20 19:54 36.8 83 16 127/74 (91) 97 NIV CPAP Capillary Refill : General Appearance: No Apparent Distress, WD/WN, Chronically ill HEENT: PERRL/EOMI, Normal ENT Inspection, Pharynx Normal Neck: Full Range of Motion, Normal Inspection, Non Tender, Supple, Carotid Bru it Respiratory: Chest Non Tender, Lungs Clear, Normal Breath Sounds, No Accessory Muscle Use, No Respiratory Distress Cardiovascular: Regular Rate, Rhythm, No Edema, No Gallop, No JVD, No Murmur, Normal Peripheral Pulses Gastrointestinal: Normal Bowel Sounds, No Organomegaly, No Pulsatile Mass, Non Tender, Soft Back: Normal Inspection, No CVA Tenderness, No Vertebral Tenderness Extremity: Normal Capillary Refill, Normal Inspection, Normal Range of Motion (Except left leg), Non Tender, No Calf Tenderness, No Pedal Edema Neurologic/Psychiatric: Alert, Oriented x3, No Motor/Sensory Deficits, Normal Mood/Affect, medical technicians II-XII Norm as Tested, Abnormal Gait, Motor Weakness (Left leg) Skin: Normal Color, Warm/Dry Lymphatic: No Adenopathy Results/Procedures Lab Patient resulted labs reviewed. FIM Transfers Therapy Code Descriptions/Definitions Functional [place] Measure: 0=Not Assessed/NA 4=Minimal Assistance 1=Total Assistance 5=Supervision or Setup 2=Maximal Assistance 6=Modified [place] 3=Moderate Assistance 7=Complete IndependenceSCALE: Activities may be completed with or without assistive devices. 7-Qrlprjihdr-mgqpwyp completes the activity by him/herself with no assistance from a helper. 5-Set-up or Clean-up Assistance-helper sets up or cleans up; patient completes activity. [place] assists only prior to or following the activity. 4-Supervision or Touching Assistance-helper provides verbal cues and/or touching/steadying and/or contact guard assistance as patient completes activity. Assistance may be provided throughout the activity or intermittently. 3-Partial/Moderate Assistance-helper does LESS THAN HALF the effort. [place] lifts, holds or supports trunk or limbs, but provides less than half the effort. 2-Substantial/Maximal Assistance-helper does MORE THAN HALF the effort. [place] lifts or holds trunk or limbs and provides more than half the effort. 0-Iysbubwpn-fuurmy does ALL the effort. Patient does none of the effort to complete the activity. Or, the assistance of 2 or more helpers is required for the patient to complete the activity. If activity was not attempted, code reason: 7-Patient Refused. 9-Not Applicable-not attempted and the patient did not perform the activity before the current illness, exacerbation or injury. 10-Not Attempted due to Environmental Limitations-(lack of equipment, weather restraints, etc.). 88-Not Attempted due to Medical Conditions or Safety Concerns. Roll Left to Right (QC): 3 Sit to Lying (QC): 3 Sit to Stand (QC): 4 Chair/Muw-tn-Thugm Xfer(QC): 4 Car Transfer (QC): 2 Gait Training Does the Patient Walk?: Yes Distance: 150', 125' Walk 10 feet (QC): 4 Walk 50 ft with 2 Turns(QC): 4 Walk 150 ft (QC): 4 Walking 10ft/uneven surface-QC: 4 Gait Persons Needed: 1 Gait Assistive Device: FWW Wheelchair Training Does the Pt Use a Wheelchair?: No Distance: 150 Wheel 50 ft with 2 turns (QC): 4 Wheel 150 ft (QC): 4 Type of Wheelchair: Manual Stair Training #of Steps: 0 1 Step (curb) (QC): 88 4 Steps (QC): 88 12 Steps (QC): 88 Balance Picking up an Object (QC): 88 ADL-Treatment Eating (QC): 5 Oral Hygiene (QC): 4 Bathing Location: L Arm, R Arm, L Upper Leg, R Upper Leg, L Lower Leg (including foot), R Lower Leg (including foot), Chest, Abdomen, Buttocks, P erineal Area Shower/Bathe Self (QC): 3 (mod) Upper Body Dressing (QC): 3 (Min A for bra only. See below for comments. ) Lower Body Dressing (QC): 3 (Min A) On/Off Footwear (QC): 3 (Min A) Toileting Hygiene (QC): 4 (CGA) Toilet Transfer (QC): 3 (Min A for initial boost off toilet) Assessment/Plan Assessment and Plan Assess & Plan/Chief Complaint Assessment: Status post left hip fracture status post repair at [facility] Acute blood loss anemia requiring 2 units of blood at 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
[2020-10-13] MEDS: SENNA W/DOCUSATE (SENOKOT S) TABLET PO SCH ×2 (08:12→20:42)
[2020-10-13] MEDS: CIPROFLOXACIN 500 MG (CIPRO) TABLET PO SCH ×2 (08:12→20:42)
[2020-10-13] MEDS: DOCUSATE SODIUM 100 MG (COLACE) CAP PO SCH ×2 (08:12→20:42)
[2020-10-13] MEDS: RIVAROXABAN 20 MG TABLET (XARELTO) PO SCH (08:12)
[2020-10-13] MEDS: VENlafaxine XR 75 MG (EFFEXOR XR) CAP PO SCH (08:12)
[2020-10-13] MEDS: polyethylene glycoL POWDER 17 GM (MIRALAX) PACK PO SCH ×2 (08:13→19:34)
[2020-10-13 08:14] VITALS: BP 136/64
--- NOTE | 2020-10-13 11:47 | Physical Therapy Daily Note ---
PT Daily Note-Current Subjective Pt is in the chair on arrival and ready for PT. Mental Status Patient Orientation: Person, Place, Time, Situation Transfers SCALE: Activities may be completed with or without assistive devices. 0-Wzljrsbnbv-jpdkzcn completes the activity by him/herself with no assistance from a helper. 5-Set-up or Clean-up Assistance-helper sets up or cleans up; patient completes activity. [place] assists only prior to or following the activity. 4-Supervision or Touching Assistance-helper provides verbal cues and/or touching/steadying and/or contact guard assistance as patient completes activity. Assistance may be provided throughout the activity or intermittently. 3-Partial/Moderate Assistance-helper does LESS THAN HALF the effort. [place] lifts, holds or supports trunk or limbs, but provides less than half the effort. 2-Substantial/Maximal Assistance-helper does MORE THAN HALF the effort. [place] lifts or holds trunk or limbs and provides more than half the effort. 4-Wicbhkvyg-bfiiln does ALL the effort. Patient does none of the effort to complete the activity. Or, the assistance of 2 or more helpers is required for the patient to complete the activity. If activity was not attempted, code reason: 7-Patient Refused. 9-Not Applicable-not attempted and the patient did not perform the activity before the current illness, exacerbation or injury. 10-Not Attempted due to Environmental Limitations-(lack of equipment, weather restraints, etc.). 88-Not Attempted due to Medical Conditions or Safety Concerns. Sit to Stand (QC): 5 Chair/Lvm-or-Ujblt Xfer(QC): 5 Weight Bearing Left Lower Extremity: Left Weight Bearing/Tolerated Gait Training Does the Patient Walk?: Yes Distance: 250ft Walk 10 feet (QC): 5 Walk 50 ft with 2 Turns(QC): 5 Walk 150 ft (QC): 5 Gait Persons Needed: 1 Gait Assistive Device: FWW Exercises Seated Therapy Exercises: LE Protocol Seated Reps: 15 Assessment Current Status: Good Progress No issues with ambulation. Pt denied pain with transfers or gait. PT Short Term Goals Short Term Goals Time Frame: Oct 19, 2020 Roll Left & Right: 4 Sit to lyin Lying to sitting on side of be: 4 Sit to stand: 4 Chair/rfp-yv-biqxj transfer: 4 Toilet transfer: 4 Car transfer: 4 Walk 10 feet: 5 Walk 50 feet with two turns: 5 Walk 150 feet: 5 Walking 10ft on uneven surface: 5 1 step (curb): 4 4 steps: 4 12 steps: 4 Picking up objects: 3 Does pt use a wc or scooter: No Wheel 50ft w/2 turns: 6 Wheel 150 feet: 6 Type: Manual PT [facility] Goals [facility] Goals PT [employer] Goals Time Frame: Nov 08, 2020 Roll Left & Right (QC): 6 Sit to Lying (QC): 6 Lying-Sitting on Side/Bed(QC): 6 Sit to Stand (QC): 6 Chair/Bck-hh-Vxyxg Xfer(QC): 6 Toilet Transfer (QC): 6 Car Transfer (QC): 6 Does the Patient Walk: Yes Walk 10 feet (QC): 6 Walk 50ft with 2 Turns (QC): 6 Walk 150 ft (QC): 6 Walking 10ft on Uneven Surface: 6 1 Step (curb) (QC): 6 4 Steps (QC): 6 12 Steps (QC): 6 Picking up an Object (QC): 6 Does the Pt use WC or Scooter?: No Wheel 50 feet with 2 turns (QC: 6 Type: Manual Wheel 150 feet: 6 Type: Manual PT Plan Treatment/Plan Treatment Plan: Continue Plan of Care Treatment Plan: Bed Mobility, Education, Functional Activity Priya, Functional Strength, Group Therapy, Gait, Safety, Therapeutic Exercise, Transfers Treatment Duration: Dec 14, 2020 Frequency: At least 5 of 7 days/Wk (IRF) Estimated Hrs Per Day: 1.5 hours per day Patient and/or Family Agrees t: Yes Time/GCodes Time In: 934 Time Out: 950 Total Billed Treatment Time: 16 Total Billed Treatment 1, gt 16 MANDY VAUGHN PT Oct 13, 2020 11:47
--- NOTE | 2020-10-13 12:11 | Consultation-Cardiology ---
HPI-Cardiology Cardiology Consultation Date of Consultation 10/13/20 Date of Admission Time Seen by Provider: 11:00 Indication: Aortic valve stenosis HPI 85 years old lady with history of aortic valve stenosis, aortic valve replacement complicated by stroke, history of hip fracture underwent hip surgery, transfer to acute rehab. She has history of pulmonary embolism. She had anemia received 2 units of blood transfusion during her hospitalization. On my evaluation she was sitting in a chair, comfortable, denied any chest pain, no shortness of breath. No palpitation. No syncope. Home Medications & Allergies Allergies: Coded Allergies: No Known Drug Allergies (Unverified , 02/04/17) Home Medication List Reviewed: Yes EYS-Gqvtww-Sqevtu Hx Patient Social History Marital Status: Employed/Student: retired Smoking Status: Never a Smoker Recent Hopitalizations: No Have you traveled recently?: No Immunizations Up To Date Date of Pneumonia Vaccine: Feb 25, 2019 Date of Influenza Vaccine: Dec 07, 2019 Past Medical History Discussed below Family Medical History Significant Family History: No Pertinent Family Hx Family History: Diabetes mellitus 19 FATHER 19 MOTHER FH: heart disease 19 MOTHER FH: muscular dystrophy G8 BROTHER (Friedreich's Ataxia) Hypertension Myocardial infarction 19 MOTHER Review of Systems-General Review of Systems Constitutional: see HPI, malaise, weakness EENTM: no symptoms reported Respiratory: no symptoms reported Cardiovascular: see HPI; No chest pain, No edema, No Hx of Intervention, No palpitations, No syncope, No vascular heart diseas, No other Gastrointestinal: no symptoms reported Genitourinary: no symptoms reported Musculoskeletal: back pain, joint pain Skin: no symptoms reported Psychiatric/Neurological: No Symptoms Reported All Other Systems Reviewed Negative Unless Noted: Yes Physical Exam Physical Exam Vital Signs Vital Signs - First Documented 10/11/20 11:02 Temp 36.6 Pulse 80 Resp 18 B/P (MAP) 148/64 (92) Pulse Ox 99 O2 Delivery Room Air Capillary Refill : Height, Weight, BMI Height: 5'3.00" Weight: 174lbs. 12.8oz. [id number]; 24.21 BMI Method:Stated General Appearance: No Apparent Distress, WD/WN, Chronically ill Eyes: Bilateral Eye Normal Inspection, Bilateral Eye PERRL HEENT: PERRL/EOMI, Normal ENT Inspection, Pharynx Normal Neck: Full Range of Motion, Normal Inspection, Non Tender, Supple, Carotid Bruit Respiratory: Chest Non Tender, Lungs Clear, Normal Breath Sounds, No Accessory Muscle Use, No Respiratory Distress Cardiovascular: Regular Rate, Rhythm, No Edema, No Gallop, No JVD, Normal Peripheral Pulses, Systolic Murmur Gastrointestinal: Normal Bowel Sounds, No Organomegaly, No Pulsatile Mass, Non Tender, Soft Back: Normal Inspection, No CVA Tenderness, No Vertebral Tenderness Extremity: Normal Capillary Refill, Normal Inspection, Normal Range of Motion (Except left leg), Non Tender, No Calf Tenderness, No Pedal Edema Neurologic/Psychiatric: Alert, Oriented x3, No Motor/Sensory Deficits, Normal Mood/Affect, 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 Anemia, postop, received blood transfusion, continue to monitor H&H. Aortic valve stenosis, history of TAVR done in June 2020, complicated by CVA. Doing well at this time History of massive pulmonary embolism treated with thrombolytics in April [facility] Cardiac catheterization done in December 2019 reporting no significant obstructive disease in the coronary system. Normal right heart pressure with no signs of shunt. History of CVA post TAVR in June 2020 treated with right MCA thrombectomy at [facility], has significant improvement but residual left side weakness and right-sided gaze preference. 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 Barton at [facility] Lower extremity pain and claudication, segmental work-up was negative. Mild carotid disease, continue to monitor Sleep apnea, followed and managed by primary care physician History of cochlear implant. TANYA BILLY MD Oct 13, 2020 12:11
[2020-10-13 19:54] VITALS: BP 127/74
[2020-10-13] MEDS: MELATONIN 3 MG TABLET PO SCH (20:42)
[2020-10-14] MEDS: PANTOPRAZOLE 20 MG TABLET (PROTONIX) PO SCH ×2 (06:00→17:16)
[2020-10-14] MEDS: ACETAMINOPHEN 325 MG TABLET PO PRN (07:33)
[2020-10-14 08:00] VITALS: BP 111/56
[2020-10-14] MEDS: SENNA W/DOCUSATE (SENOKOT S) TABLET PO SCH ×2 (09:47→20:04)
[2020-10-14] MEDS: DOCUSATE SODIUM 100 MG (COLACE) CAP PO SCH ×2 (09:47→20:04)
[2020-10-14] MEDS: RIVAROXABAN 20 MG TABLET (XARELTO) PO SCH (09:47)
[2020-10-14] MEDS: CIPROFLOXACIN 500 MG (CIPRO) TABLET PO SCH (09:47)
[2020-10-14] MEDS: polyethylene glycoL POWDER 17 GM (MIRALAX) PACK PO SCH ×2 (09:47→20:04)
[2020-10-14] MEDS: VENlafaxine XR 75 MG (EFFEXOR XR) CAP PO SCH (09:50)
--- NOTE | 2020-10-14 11:17 | Cardiology Progress Note ---
Subjective Date Seen by Provider: Oct 14, 2020 Time Seen by Provider: 11:16 Subjective/Events-last exam Patient was seen at bedside, sitting comfortably, no new complaint. Review of Systems General: No Chills, No Night Sweats, No Fatigue, No Malaise, No Appetite, No Other HEENT: No Head Aches, No Visual Changes, No Eye Pain, No Ear Pain, No Dysphasia, No Sinus Congestion, No Post Nasal Drip, No Sore Throat, No Other Pulmonary: No Dyspnea, No Cough, No Pleuritic Chest Pain, No Other Cardiovascular: No: Chest Pain, Palpitations, Orthopnea, Paroxysmal Noc. Dyspnea, Edema, Lt Headedness, Other Objective-Cardiology Exam Last Set of Vital Signs Vital Signs 10/14/20 08:00 Temp 37.4 Pulse 98 Resp 18 B/P (MAP) 111/56 (74) Pulse Ox 96 O2 Delivery Room Air General: Alert, Oriented X3, Cooperative HEENT: Atraumatic, PERRLA Neck: Supple, No JVD, No Thyromegaly Lungs: Clear to Auscultation, Normal Air Movement Heart: Regular Rate, Normal S1, Normal S2, Other (Systolic murmur) Abdomen: Normal Bowel Sounds, Soft, No Tenderness, No Hepatosplenomegaly, No Masses Extremities: No Clubbing, No Cyanosis, No Edema, Normal Pulses, No Tenderness/Swelling Skin: No Rashes, No Breakdown, No Significant Lesion Neuro: Normal Gait, Normal Speech, Strength at 5/5 X4 Ext, Normal Tone, Sensation Intact Psych/Mental Status: Mental Status NL, Mood NL A/P-Cardiology Admission Diagnosis Hip fracture Anemia Aortic stenosis CVA Assessment/Plan Hip fracture, status post repair at [facility], recovering and receiving physical therapy. Anemia, postop, received blood transfusion, continue to monitor H&H. Aortic valve stenosis, history of TAVR done in June 2020, complicated by CVA. Doing well at this time History of massive pulmonary embolism treated with thrombolytics in April 2017 and maintained on [facility] abandoned Cardiac catheterization done in December 2019 reporting no significant obstr uctive disease in the coronary system. Normal right heart pressure with no signs of shunt. History of CVA post TAVR in June 2020 treated with right MCA thrombectomy at [facility], has significant improvement but residual left side weakness and right-sided gaze preference. 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 Barton at [facility] Lower extremity pain and claudication, segmental work-up was negative. Mild carotid disease, continue to monitor Sleep apnea, followed and managed by primary care physician History of cochlear implant. TANYA BILLY MD Oct 14, 2020 11:17
--- NOTE | 2020-10-14 11:25 | PM&R Progress Note ---
Subjective HPI/CC On Admission Date Seen by Provider: Oct 14, 2020 Time Seen by Provider: 12:00 Subjective/Events-last exam 10/14/2020: Supportive care Patient denies pain No falls Tylenol given for headache BiPAP at night 10/13/2020: Patient doing really well Use BiPAP last night Bowels moved yesterday Pain is well controlled 10/12/2020: Pt having a headache, Tylenol give RT will set up her BiPAP Hgb 9.[address] Wade to evaluate heart that they were concerned about during her hip fracture repair Review of Systems General: Fatigue Musculoskeletal: leg pain Objective Exam Vital Signs Vital Signs Date Time Temp Pulse Resp B/P (MAP) Pulse Ox O2 Delivery O2 Flow Rate FiO2 10/14/20 08:00 37.4 98 18 111/56 (74) 96 Room Air Capillary Refill : General Appearance: No Apparent Distress, WD/WN, Chronically ill HEENT: PERRL/EOMI, Normal ENT Inspection, Pharynx Normal Neck: Full Range of Motion, Normal Inspection, Non Tender, Supple, Carotid Bruit Respiratory: Chest Non Tender, Lungs Clear, Normal Breath Sounds, No Accessory Muscle Use, No Respiratory Distress Cardiovascular: Regular Rate, Rhythm, No Edema, No Gallop, No JVD, No Murmur, Normal Peripheral Pulses Gastrointestinal: Normal Bowel Sounds, No Organomegaly, No Pulsatile Mass, Non Tender, Soft Back: Normal Inspection, No CVA Tenderness, No Vertebral Tenderness Extremity: Normal Capillary Refill, Normal Inspection, Normal Range of Motion (Except left leg), Non Tender, No Calf Tenderness, No Pedal Edema Neurologic/Psychiatric: Alert, Oriented x3, No Motor/Sensory Deficits, Normal 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 FIM Transfers Therapy Code Descriptions/Definitions Functional [place] Measure: 0=Not Assessed/NA 4=Minimal Assistance 1=Total Assistance 5=Supervision or Setup 2=Maximal Assistance 6=Modified [place] 3=Moderate Assistance 7=Complete IndependenceSCALE: Activities may be completed with or without assistive devices. 3-Vpjevvqyfz-rkogrfn completes the activity by him/herself with no assistance from a helper. 5-Set-up or Clean-up Assistance-helper sets up or cleans up; patient completes activity. [place] assists only prior to or following the activity. 4-Supervision or Touching Assistance-helper provides verbal cues and/or touching/steadying and/or contact guard assistance as patient completes activity. Assistance may be provided throughout the activity or intermittently. 3-Partial/Moderate Assistance-helper does LESS THAN HALF the effort. [place] lifts, holds or supports trunk or limbs, but provides less than half the effort. 2-Substantial/Maximal Assistance-helper does MORE THAN HALF the effort. [place] lifts or holds trunk or limbs and provides more than half the effort. 0-Xcpgpgmrv-hjiiwi does ALL the effort. Patient does none of the effort to complete the activity. Or, the assistance of 2 or more helpers is required for the patient to complete the activity. If activity was not attempted, code reason: 7-Patient Refused. 9-Not Applicable-not attempted and the patient did not perform the activity before the current illness, exacerbation or injury. 10-Not Attempted due to Environmental Limitations-(lack of equipment, weather restraints, etc.). 88-Not Attempted due to Medical Conditions or Safety Concerns. Roll Left to Right (QC): 3 Sit to Lying (QC): 3 Sit to Stand (QC): 5 Chair/Crv-pl-Abouc Xfer(QC): 5 Car Transfer (QC): 2 Gait Training Does the Patient Walk?: Yes Distance: 250ft Walk 10 feet (QC): 5 Walk 50 ft with 2 Turns(QC): 5 Walk 150 ft (QC): 5 Walking 10ft/uneven surface-QC: 4 Gait Persons Needed: 1 Gait Assistive Device: FWW Wheelchair Training Does the Pt Use a Wheelchair?: No Distance: 150 Wheel 50 ft with 2 turns (QC): 4 Wheel 150 ft (QC): 4 Type of Wheelchair: Manual Stair Training #of Steps: 0 1 Step (curb) (QC): 88 4 Steps (QC): 88 12 Steps (QC): 88 Balance Picking up an Object (QC): 88 ADL-Treatment Eating (QC): 5 Oral Hygiene (QC): 4 Bathing Location: L Arm, R Arm, L Upper Leg, R Upper Leg, L Lower Leg (including foot), R Lower Leg (including foot), Chest, Abdomen, Buttocks, Perineal Area Shower/Bathe Self (QC): 3 (mod) Upper Body Dressing (QC): 3 (Min A for bra only. See below for comments. ) Lower Body Dressing (QC): 3 (Min A) On/Off Footwear (QC): 3 (Min A) Toileting Hygiene (QC): 4 (CGA) Toilet Transfer (QC): 3 (Min A for initial boost off toilet) Assessment/Plan Assessment and Plan Assess & Plan/Chief Complaint Assessment: Status post left hip fracture status post repair at [facility] Acute blood loss anemia requiring 2 units of blood at [facility] 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 History of RMAR [place] 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 ABIGAIL on biPAP Cochlear implant GERD IBS RLS Plan: Inpatient rehab protocol Monitor hemoglobin Home meds 10/12/2020: Cardiology consult Monitor closely Pain control 10/13/2020: Pain control BiPAP at night Oral anticoagulation 10/14/2020: BiPAP at night Maintain Xarelto Monitor closely (1) Closed intertrochanteric fracture of left hip Status: Acute DUNG KEYS DO Oct 14, 2020 11:25
[2020-10-14] MEDS: MELATONIN 3 MG TABLET PO SCH (19:59)
[2020-10-14 20:00] VITALS: BP 138/75
[2020-10-15] MEDS: PANTOPRAZOLE 20 MG TABLET (PROTONIX) PO SCH ×2 (05:27→16:09)
[2020-10-15 05:54] LABS: BASOPHILS % (AUTO) 0 % (0-10); EOSINOPHILS # (AUTO) 0.1 10^3/uL (0.0-0.3); EOSINOPHILS % (AUTO) 1 % (0-10); HEMATOCRIT 28 % (35-52); HEMOGLOBIN 8.7 g/dL (11.5-16.0); LYMPHOCYTES % (AUTO) 14 % (12-44); MEAN CORPUSCULAR HEMOGLOBIN 31 pg (25-34); MEAN CORPUSCULAR HGB CONC 31 g/dL (32-36); MEAN CORPUSCULAR VOLUME 101 fL (80-99); MEAN PLATELET VOLUME 9.9 fL (9.0-12.2); MONOCYTES # (AUTO) 0.6 10^3/uL (0.0-1.0); MONOCYTES % (AUTO) 9 % (0-12); NEUTROPHILS % (AUTO) 75 % (42-75); PLATELET COUNT 236 10^3/uL (130-400); WHITE BLOOD COUNT 6.8 10^3/uL (4.3-11.0)
[2020-10-15 06:08] LABS: ALBUMIN 2.8 GM/DL (3.2-4.5); POTASSIUM 3.8 MMOL/L (3.6-5.0)
[2020-10-15 06:10] LABS: CALCIUM 8.8 MG/DL (8.5-10.1)
[2020-10-15 06:11] LABS: TOTAL PROTEIN 5.4 GM/DL (6.4-8.2)
--- NOTE | 2020-10-15 06:11 | PM&R Progress Note ---
Subjective HPI/CC On Admission Date Seen by Provider: Oct 15, 2020 Time Seen by Provider: 09:30 Subjective/Events-last exam 10/15/2020: Pt in a really good mood Bowels moved yesterday Hgb 8.7 No major issues at this current time No falls 10/14/2020: Supportive care Patient denies pain No falls Tylenol given for headache BiPAP at night 10/13/2020: Patient doing really well Use BiPAP last night Bowels moved yesterday Pain is well controlled 10/12/2020: Pt having a headache, Tylenol give RT will set up her BiPAP Hgb 9.[address] Wade to evaluate heart that they were concerned about during her hip fracture repair Review of Systems General: Fatigue, Malaise Musculoskeletal: leg pain Objective Exam Vital Signs Vital Signs Date Time Temp Pulse Resp B/P (MAP) Pulse Ox O2 Delivery O2 Flow Rate FiO2 10/15/20 20:00 36.8 92 18 128/73 (91) 95 NIV CPAP Capillary Refill : General Appearance: No Apparent Distress, WD/WN, Chronically ill HEENT: PERRL/EOMI, Normal ENT Inspection, Pharynx Normal Neck: Full Range of Motion, Normal Inspection, Non Tender, Supple, Carotid Bruit Respiratory: Chest Non Tender, Lungs Clear, Normal Breath Sounds, No Accessory Muscle Use, No Respiratory Distress Cardiovascular: Regular Rate, Rhythm, No Edema, No Gallop, No JVD, No Murmur, Normal Peripheral Pulses Gastrointestinal: Normal Bowel Sounds, No Organomegaly, No Pulsatile Mass, Non Tender, Soft Back: Normal Inspection, No CVA Tenderness, No Vertebral Tenderness Extremity: Normal Capillary Refill, Normal Inspection, Normal Range of Motion (Except left leg), Non Tender, No Calf Tenderness, No Pedal Edema Neurologic/Psychiatric: Alert, Oriented x3, No Motor/Sensory Deficits, Normal 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 FIM Transfers Therapy Code Descriptions/Definitions Functional [place] Measure: 0=Not Assessed/NA 4=Minimal Assistance 1=Total Assistance 5=Supervision or Setup 2=Maximal Assistance 6=Modified [place] 3=Moderate Assistance 7=Complete IndependenceSCALE: Activities may be completed with or without assistive devices. 3-Jjfrrjwtqy-dhdizag completes the activity by him/herself with no assistance from a helper. 5-Set-up or Clean-up Assistance-helper sets up or cleans up; patient completes activity. [place] assists only prior to or following the activity. 4-Supervision or Touching Assistance-helper provides verbal cues and/or touching/steadying and/or contact guard assistance as patient completes activity. Assistance may be provided throughout the activity or intermittently. 3-Partial/Moderate Assistance-helper does LESS THAN HALF the effort. [place] lifts, holds or supports trunk or limbs, but provides less than half the effort. 2-Substantial/Maximal Assistance-helper does MORE THAN HALF the effort. [place] lifts or holds trunk or limbs and provides more than half the effort. 0-Ulepxytpi-oliwid does ALL the effort. Patient does none of the effort to complete the activity. Or, the assistance of 2 or more helpers is required for the patient to complete the activity. If activity was not attempted, code reason: 7-Patient Refused. 9-Not Applicable-not attempted and the patient did not perform the activity before the current illness, exacerbation or injury. 10-Not Attempted due to Environmental Limitations-(lack of equipment, weather restraints, etc.). 88-Not Attempted due to Medical Conditions or Safety Concerns. Roll Left to Right (QC): 3 Sit to Lying (QC): 3 Sit to Stand (QC): 5 Chair/Fzn-zl-Bsqks Xfer(QC): 5 Car Transfer (QC): 2 Gait Training Does the Patient Walk?: Yes Distance: 250ft Walk 10 feet (QC): 5 Walk 50 ft with 2 Turns(QC): 5 Walk 150 ft (QC): 5 Walking 10ft/uneven surface-QC: 4 Gait Persons Needed: 1 Gait Assistive Device: FWW Wheelchair Training Does the Pt Use a Wheelchair?: No Distance: 150 Wheel 50 ft with 2 turns (QC): 4 Wheel 150 ft (QC): 4 Type of Wheelchair: Manual Stair Training #of Steps: 0 1 Step (curb) (QC): 88 4 Steps (QC): 88 12 Steps (QC): 88 Balance Picking up an Object (QC): 88 ADL-Treatment Eating (QC): 5 Oral Hygiene (QC): 4 Bathing Location: L Arm, R Arm, L Upper Leg, R Upper Leg, L Lower Leg (including foot), R Lower Leg (including foot), Chest, Abdomen, Buttocks, Perineal Area Shower/Bathe Self (QC): 3 (mod) Upper Body Dressing (QC): 3 (Min A for bra only. See below for comments. ) Lower Body Dressing (QC): 3 (Min A) On/Off Footwear (QC): 3 (Min A) Toileting Hygiene (QC): 4 (CGA) Toilet Transfer (QC): 3 (Min A for initial boost off toilet) Assessment/Plan Assessment and Plan Assess & Plan/Chief Complaint Assessment: Status post left hip fracture status post repair at [facility] Acute blood loss anemia requiring 2 units of blood at [facility] 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 History of TVAR [place] 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 ABIGAIL on biPAP Cochlear implant GERD IBS RLS Plan: Inpatient rehab protocol Monitor hemoglobin Home meds 10/12/2020: Cardiology consult Monitor closely Pain control 10/13/2020: Pain control BiPAP at night Oral anticoagulation 10/14/2020: BiPAP at night Maintain Xarelto Monitor closely 10/15/2020: Low-grade fever we will monitor closely Labs normal today (1) Closed intertrochanteric fracture of left hip Status: Acute DUNG KEYS DO Oct 15, 2020 06:11
[2020-10-15 06:13] LABS: BILIRUBIN,TOTAL 1.3 MG/DL (0.1-1.0)
[2020-10-15 06:14] LABS: CREATININE SERUM 0.6 MG/DL (0.60-1.30)
[2020-10-15 07:54] VITALS: BP 130/60
[2020-10-15] MEDS: polyethylene glycoL POWDER 17 GM (MIRALAX) PACK PO SCH ×2 (08:02→19:36)
[2020-10-15] MEDS: DOCUSATE SODIUM 100 MG (COLACE) CAP PO SCH ×2 (08:02→19:36)
[2020-10-15] MEDS: VENlafaxine XR 75 MG (EFFEXOR XR) CAP PO SCH (08:02)
[2020-10-15] MEDS: RIVAROXABAN 20 MG TABLET (XARELTO) PO SCH (08:02)
[2020-10-15] MEDS: SENNA W/DOCUSATE (SENOKOT S) TABLET PO SCH ×2 (08:02→19:36)
--- NOTE | 2020-10-15 09:59 | Physical Therapy Daily Note ---
PT Daily Note-Current Subjective Pt in recliner upon arrival and agrees to tx. Pt states pain in L hip 08/25 during ex. Pt appears tired and worn out. Pt shows concern for sit to supine, stating she isn't sure how to get L LE into bed when she leaves, OTR TANKER TRUCK DRIVER discussed with pt and will work on it in PM tx. Pain Numeric Pain Scale: 7 Location: Left Location Body Site: Hip Pain Description: Ache Comment: Pt states it feels sore as well. Mental Status Patient Orientation: Person, Place, Time, Situation Transfers SCALE: Activities may be completed with or without assistive devices. 6-Lsewxpwvqi-gyoorjq completes the activity by him/herself with no assistance from a helper. 5-Set-up or Clean-up Assistance-helper sets up or cleans up; patient completes activity. [place] assists only prior to or following the activity. 4-Supervision or Touching Assistance-helper provides verbal cues and/or touchin g/steadying and/or contact guard assistance as patient completes activity. Assistance may be provided throughout the activity or intermittently. 3-Partial/Moderate Assistance-helper does LESS THAN HALF the effort. [place] lifts, holds or supports trunk or limbs, but provides less than half the effort. 2-Substantial/Maximal Assistance-helper does MORE THAN HALF the effort. [place] lifts or holds trunk or limbs and provides more than half the effort. 2-Zpzprgsta-wchknv does ALL the effort. Patient does none of the effort to complete the activity. Or, the assistance of 2 or more helpers is required for the patient to complete the activity. If activity was not attempted, code reason: 7-Patient Refused. 9-Not Applicable-not attempted and the patient did not perform the activity before the current illness, exacerbation or injury. 10-Not Attempted due to Environmental Limitations-(lack of equipment, weather restraints, etc.). 88-Not Attempted due to Medical Conditions or Safety Concerns. Sit to Lying (QC): 3 Sit to Stand (QC): 3 Sitting to lying, pt requires ModA from OTR TANKER TRUCK DRIVER in getting LEs into the bed, pt unable to do so d/t pain and weakness. Sit to stand requires Min to ModA dependent on pt fatigue. Weight Bearing Left Lower Extremity: Left Weight Bearing/Tolerated Gait Training Does the Patient Walk?: Yes Distance: 200' x2 Walk 10 feet (QC): 4 Walk 50 ft with 2 Turns(QC): 4 Walk 150 ft (QC): 4 Gait Persons Needed: 1 Gait Assistive Device: FWW Pt amb around Rehab Unit requiring CGA to help w/ steadiness. Pt WB with UE, with shortened stance time on L LE. Pt requires VC to flex L LE during swing phase. Wheelchair Training Does the Pt Use a Wheelchair?: No Exercises Seated Therapy Exercises: Long arc quads, Hip flexion Seated Reps: 10 Standing: Hip Abduction, Hamstring curls, Heel/toe raises, Marching Standing Reps: 10 Pt performed hip flex and LAQ seated d/t being unable to complete ex in standing position on L LE. Pt performed standing ex at // in gym, requiring rest breaks between each set on each LE d/t weakness and fatigue. Treatments Pt amb from room to // bars in gym. Pt performs standing ex followed by seated ex, requiring frequent rest breaks. Pt amb from gym around rehab unit, and returns to room. Pt request to lay down in bed, OTR TANKER TRUCK DRIVER assist pt w/ getting LE in bed. Pt left with all needs met, call light in hand. Assessment Current Status: Fair Progress Pt quickly fatigues during tx. Pt limited by pain and weakness in L LE. PT Short Term Goals Short Term Goals Time Frame: Oct 19, 2020 Roll Left & Right: 4 Sit to lyin Lying to sitting on side of be: 4 Sit to stand: 4 Chair/vvd-ln-mpdcg transfer: 4 Toilet transfer: 4 Car transfer: 4 Walk 10 feet: 5 Walk 50 feet with two turns: 5 Walk 150 feet: 5 Walking 10ft on uneven surface: 5 1 step (curb): 4 4 steps: 4 12 steps: 4 Picking up objects: 3 Does pt use a wc or scooter: No Wheel 50ft w/2 turns: 6 Wheel 150 feet: 6 Type: Manual PT [employer] Dr[employer] Operator Goals Mcfp Goals PT Mcfp Goals Time Frame: Nov 08, 2020 Roll Left & Right (QC): 6 Sit to Lying (QC): 6 Lying-Sitting on Side/Bed(QC): 6 Sit to Stand (QC): 6 Chair/Bep-re-Aqsci Xfer(QC): 6 Toilet Transfer (QC): 6 Car Transfer (QC): 6 Does the Patient Walk: Yes Walk 10 feet (QC): 6 Walk 50ft with 2 Turns (QC): 6 Walk 150 ft (QC): 6 Walking 10ft on Uneven Surface: 6 1 Step (curb) (QC): 6 4 Steps (QC): 6 12 Steps (QC): 6 Picking up an Object (QC): 6 Does the Pt use WC or Scooter?: No Wheel 50 feet with 2 turns (QC: 6 Type: Manual Wheel 150 feet: 6 Type: Manual PT Plan Problem List Problem List: Activity Tolerance, Functional Strength, Safety, Bed Mobility Treatment/Plan Treatment Plan: Continue Plan of Care Treatment Plan: Bed Mobility, Education, Functional Activity Priya, Functional Strength, Group Therapy, Gait, Safety, Therapeutic Exercise, Transfers Treatment Duration: Dec 14, 2020 Frequency: At least 5 of 7 days/Wk (IRF) Estimated Hrs Per Day: 1.5 hours per day Patient and/or Family Agrees t: Yes Safety Risks/Education Patient Education: Gait Training, Transfer Techniques Teaching Recipient: Patient Teaching Methods: Demonstration, Discussion Response to Teaching: Verbalize Understanding, Return Demonstration Time/GCodes Time In: 900 Time Out: 1000 Total Billed Treatment Time: 60 Total Billed Treatment 1, GT x2, EX x2 ANGEL NYE OTR TANKER TRUCK DRIVER Oct 15, 2020 09:59
[2020-10-15] MEDS: ACETAMINOPHEN 325 MG TABLET PO PRN (11:26)
--- NOTE | 2020-10-15 11:44 | Physical Therapy Daily Note ---
PT Daily Note-Current Subjective Pt in room as OT finished up tx. Pt agrees to PT. Pt states pain in L hip, but doesn't rate out of 10. RN gave pt some pain medication during tx. Pt stated she felt she was limited d/t pain. Pain Location: Left Location Body Site: Hip Pain Description: Ache Mental Status Patient Orientation: Person, Place, Time Transfers SCALE: Activities may be completed with or without assistive devices. 3-Yjptiplper-chshsno completes the activity by him/herself with no assistance from a helper. 5-Set-up or Clean-up Assistance-helper sets up or cleans up; patient completes activity. [place] assists only prior to or following the activity. 4-Supervision or Touching Assistance-helper provides verbal cues and/or touching/steadying and/or contact guard assistance as patient completes activity. Assistance may be provided throughout the activity or intermittently. 3-Partial/Moderate Assistance-helper does LESS THAN HALF the effort. [place] lifts, holds or supports trunk or limbs, but provides less than half the effort. 2-Substantial/Maximal Assistance-helper does MORE THAN HALF the effort. [place] lifts or holds trunk or limbs and provides more than half the effort. 9-Agxsplcin-zksshw does ALL the effort. Patient does none of the effort to complete the activity. Or, the assistance of 2 or more helpers is required for the patient to complete the activity. If activity was not attempted, code reason: 7-Patient Refused. 9-Not Applicable-not attempted and the patient did not perform the activity before the current illness, exacerbation or injury. 10-Not Attempted due to Environmental Limitations-(lack of equipment, weather restraints, etc.). 88-Not Attempted due to Medical Conditions or Safety Concerns. Roll Left & Right (QC): 3 Sit to Lying (QC): 3 Lying to Sitting/Side of Bed(Q: 3 Sit to Stand (QC): 3 Pt requires positioning A of LE with rolling, as well as VC for UE placement. Sit to stand pt rquired Alexey d/t weakness and pain. Sitting EOB to lying, pt instructed on using towel under L foot so pt can bring L LE into bed active assist. Pt able to do so with Max VC and TC, as well as Alexey from [employer] FABRICATOR for lifting foot. Pt instructed to use towel for supine to sit under L LE, pt required A getting torso upright first attempt. Weight Bearing Left Lower Extremity: Left Weight Bearing/Tolerated Exercises Supine Ex: Bridging Supine Reps: 5 Treatments Pt demonstrates how she would get in and out of bed, requiring ModA from [employer] FABRICATOR to guide LE to lay down, and ModA to bring torso up in supine to sit. Pt transfers to recliner as [employer] FABRICATOR demonstrates use of towel under L LE for sit to supine and supine to sit. Pt extremely fatigued, lost focus often. Pt transfers back to bed and attempted bed mobility, requiring VC and TC, as well as Alexey from [employer] FABRICATOR w/ L LE. Pt performed rolling and supine exercises, followed by supine to sitting EOB. Pt able to sit EOB from supine w/ VC. Pt performs sit to supine with towel again, requiring Alexey as well as VC and TC. Pt stayed in bed post tx, left with all needs met, call light in hand. Assessment Current Status: Good Progress, Fair Progress Pt easily fatigues, limited by pain and weakness. Pt required [employer] FABRICATOR to repeat directions multiple times. PT Short Term Goals Short Term Goals Time Frame: Oct 19, 2020 Roll Left & Right: 4 Sit to lyin Lying to sitting on side of be: 4 Sit to stand: 4 Chair/oat-rn-hehkn transfer: 4 Toilet transfer: 4 Car transfer: 4 Walk 10 feet: 5 Walk 50 feet with two turns: 5 Walk 150 feet: 5 Walking 10ft on uneven surface: 5 1 step (curb): 4 4 steps: 4 12 steps: 4 Picking up objects: 3 Does pt use a wc or scooter: No Wheel 50ft w/2 turns: 6 Wheel 150 feet: 6 Type: Manual PT Kaiako Kohanga Reo Goals Retirement Goals PT Kaiako Kohanga Reo Goals Time Frame: Nov 08, 2020 Roll Left & Right (QC): 6 Sit to Lying (QC): 6 Lying-Sitting on Side/Bed(QC): 6 Sit to Stand (QC): 6 Chair/Csc-gg-Njlvh Xfer(QC): 6 Toilet Transfer (QC): 6 Car Transfer (QC): 6 Does the Patient Walk: Yes Walk 10 feet (QC): 6 Walk 50ft with 2 Turns (QC): 6 Walk 150 ft (QC): 6 Walking 10ft on Uneven Surface: 6 1 Step (curb) (QC): 6 4 Steps (QC): 6 12 Steps (QC): 6 Picking up an Object (QC): 6 Does the Pt use WC or Scooter?: No Wheel 50 feet with 2 turns (QC: 6 Type: Manual Wheel 150 feet: 6 Type: Manual PT Plan Problem List Problem List: Activity Tolerance, Functional Strength, Safety, Bed Mobility Treatment/Plan Treatment Plan: Continue Plan of Care Treatment Plan: Bed Mobility, Education, Functional Activity Priya, Functional Strength, Group Therapy, Gait, Safety, Therapeutic Exercise, Transfers Treatment Duration: Dec 14, 2020 Frequency: At least 5 of 7 days/Wk (IRF) Estimated Hrs Per Day: 1.5 hours per day Patient and/or Family Agrees t: Yes Time/GCodes Time In: 1115 Time Out: 1145 Total Billed Treatment Time: 30 Total Billed Treatment 1, FA x2 ANGEL NYE [employer] FABRICATOR Oct 15, 2020 11:44
--- NOTE | 2020-10-15 12:31 | Occupational Ther Daily Note ---
OT Current Status-Daily Note Subjective Pt verbalizes wanting to brush teeth, yet when arriving at sink, she requires reminder on what task she is performing. Mental Status/Objective Patient Orientation: Person, Confused, Place ADL-Treatment Therapy Code Descriptions/Definitions Functional [place] Measure: 0=Not Assessed/NA 4=Minimal Assistance 1=Total Assistance 5=Supervision or Setup 2=Maximal Assistance 6=Modified [place] 3=Moderate Assistance 7=Complete IndependenceSCALE: Activities may be completed with or without assistive devices. 0-Mnikhaykyd-grtwfhm completes the activity by him/herself with no assistance from a helper. 5-Set-up or Clean-up Assistance-helper sets up or cleans up; patient completes activity. [place] assists only prior to or following the activity. 4-Supervision or Touching Assistance-helper provides verbal cues and/or touching/steadying and/or contact guard assistance as patient completes activity. Assistance may be provided throughout the activity or intermittently. 3-Partial/Moderate Assistance-helper does LESS THAN HALF the effort. [place] lifts, holds or supports trunk or limbs, but provides less than half the effort. 2-Substantial/Maximal Assistance-helper does MORE THAN HALF the effort. [place] lifts or holds trunk or limbs and provides more than half the effort. 6-Rhjbohmrx-wqjqvg does ALL the effort. Patient does none of the effort to complete the activity. Or, the assistance of 2 or more helpers is required for the patient to complete the activity. If activity was not attempted, code reason: 7-Patient Refused. 9-Not Applicable-not attempted and the patient did not perform the activity before the current illness, exacerbation or injury. 10-Not Attempted due to Environmental Limitations-(lack of equipment, weather restraints, etc.). 88-Not Attempted due to Medical Conditions or Safety Concerns. Oral Hygiene (QC): 4 (sba-cga) Other Treatment Pt resting in bed at OT arrival; reluctant to participate. Requires significant time, encouragement and cues to initiate sitting EOB. After lengthy time given to initiate, Mod A required to bring LE's off edge of bed and elevate torso. Pt often closing eyes throughout treatment and requires cues for attention to task. She ambulated within room and to/from gym with walker and cga for safety. She continues to demonstrate reduced weight bearing through L foot and relies heavily on pushing through UE's when stepping through with RLE. She stood at sink for grooming tasks, intermittent reliance on sink for extra stability when using BUEs during functional tasks. In gym, pt participated in simple card game to address cognitive impairments and focus on attention, initiation, and problem solving. Max cues required throughout game with cues needed for recall of rules, strategic game play, and simple sequencing. Very poor attention noted when other staff/patients were in room. Slight improvement when pt was alone with therapist. Pt often with blank stares and requires cues to attend back to task. Same cues required when ambulating back to room as pt often getting distracted and bumping into objects. With increased distractions, pt increases risk of fall. Physical therapy intercepting pt in room at end of session. Education OT Patient Education: Energy conservation, Modified ADL techniques, Progress toward Goal/Update tx plan, Purpose of tx/functional activities, Rehab process, Safety issues, Transfer techniques Teaching Recipient: Patient Teaching Methods: Demonstration, Discussion Response to Teaching: Reinforcement Needed OT Short Term Goals Short Term Goals Time Frame: Oct 18, 2020 Eatin Oral hygiene: 5 Toileting hygiene: 4 Shower/bathe self: 4 Upper body dressin Lower body dressin Putting on/taking off footwear: 4 OT Senior Care Goals Boat Cleaning Supervisor Goals Time Frame: Oct 22, 2020 Eating (QC): 6 Oral Hygiene (QC): 6 Toileting Hygiene (QC): 6 Shower/Bathe Self (QC): 5 Upper Body Dressing (QC): 6 Lower Body Dressing (QC): 6 On/Off Footwear (QC): 6 1=Demonstrate adherence to instructed precautions during ADL tasks. 2=Patient will verbalize/demonstrate understanding of assistive devices/modifications for ADL. 3=Patient will improve strength/tolerance for activity to enable patient to perform ADL's. OT Education/Plan Problem List/Assessment Assessment: Decreased Activ Tolerance, Decreased Safety Aware, Decreased UE Strength, Impaired Cognition, Impaired Funct Balance, Impaired Self-Care Skills Discharge Recommendations Plan/Recommendations: Continue POC Treatment Plan/Plan of Care Treatment,Training & Education: Yes Patient would benefit from OT for education, treatment and training to promote independence in ADL's, mobility, safety and/or upper extremity function for ADL's. Plan of Care: ADL Retraining, Functional Mobility, Group Exercise/Act as Ind, UE Funct Exercise/Act Treatment Duration: Oct 22, 2020 Frequency: At least 5 of 7 days/Wk (IRF) Estimated Hrs Per Day: 1.5 hours per day Agreement: Yes Rehab Potential: Good Time/GCodes Start Time: 10:10 (1115) Stop Time: 11:15 Total Time Billed (hr/min): 65 Billed Treatment Time 1, ADL, 1, FA x3 Genoveva Mccloud OT Oct 15, 2020 12:31
[2020-10-15 13:31] VITALS: BP 120/59
--- NOTE | 2020-10-15 13:32 | Occupational Ther Daily Note ---
OT Current Status-Daily Note Subjective "I'm tired" Mental Status/Objective Patient Orientation: Person, Confused, Place ADL-Treatment Therapy Code Descriptions/Definitions Functional [place] Measure: 0=Not Assessed/NA 4=Minimal Assistance 1=Total Assistance 5=Supervision or Setup 2=Maximal Assistance 6=Modified [place] 3=Moderate Assistance 7=Complete IndependenceSCALE: Activities may be completed with or without assistive devices. 2-Uswmtcpyzz-baijdcg completes the activity by him/herself with no assistance from a helper. 5-Set-up or Clean-up Assistance-helper sets up or cleans up; patient completes activity. [place] assists only prior to or following the activity. 4-Supervision or Touching Assistance-helper provides verbal cues and/or touching/steadying and/or contact guard assistance as patient completes activity. Assistance may be provided throughout the activity or intermittently. 3-Partial/Moderate Assistance-helper does LESS THAN HALF the effort. [place] lifts, holds or supports trunk or limbs, but provides less than half the effort. 2-Substantial/Maximal Assistance-helper does MORE THAN HALF the effort. [place] lifts or holds trunk or limbs and provides more than half the effort. 8-Tnwwyevnc-xoiurb does ALL the effort. Patient does none of the effort to complete the activity. Or, the assistance of 2 or more helpers is required for the patient to complete the activity. If activity was not attempted, code reason: 7-Patient Refused. 9-Not Applicable-not attempted and the patient did not perform the activity before the current illness, exacerbation or injury. 10-Not Attempted due to Environmental Limitations-(lack of equipment, weather restraints, etc.). 88-Not Attempted due to Medical Conditions or Safety Concerns. Other Treatment Pt participated in UE exercises with yellow theraband. Goal to promote increased strength and endurance needed for ADLs. Pt with increased fatigue and requires several cues to maintain alertness and to keep eyes open throughout exercises. At times, pt stopping 1/[address] through and required tactile cues to finish set. Verbal and tactile cues for correct technique. Poor tolerance this session. Returned to supine, all needs within reach at end of session. Education OT Patient Education: Energy conservation, Exercise program, Progress toward Goal/Update tx plan, Purpose of tx/functional activities Teaching Recipient: Patient Teaching Methods: Demonstration, Discussion Response to Teaching: Reinforcement Needed OT Short Term Goals Short Term Goals Time Frame: Oct 18, 2020 Eatin Oral hygiene: 5 Toileting hygiene: 4 Shower/bathe self: 4 Upper body dressin Lower body dressin Putting on/taking off footwear: 4 OT Residential Goals Residential Goals Time Frame: Oct 22, 2020 Eating (QC): 6 Oral Hygiene (QC): 6 Toileting Hygiene (QC): 6 Shower/Bathe Self (QC): 5 Upper Body Dressing (QC): 6 Lower Body Dressing (QC): 6 On/Off Footwear (QC): 6 1=Demonstrate adherence to instructed precautions during ADL tasks. 2=Patient will verbalize/demonstrate understanding of assistive devices/modifications for ADL. 3=Patient will improve strength/tolerance for activity to enable patient to perform ADL's. OT Education/Plan Problem List/Assessment Assessment: Decreased Activ Tolerance, Decreased Safety Aware, Decreased UE Strength, Impaired Cognition, Impaired Funct Balance, Impaired Self-Care Skills Discharge Recommendations Plan/Recommendations: Continue POC Treatment Plan/Plan of Care Treatment,Training & Education: Yes Patient would benefit from OT for education, treatment and training to promote independence in ADL's, mobility, safety and/or upper extremity function for ADL's. Plan of Care: ADL Retraining, Functional Mobility, Group Exercise/Act as Ind, UE Funct Exercise/Act Treatment Duration: Oct 22, 2020 Frequency: At least 5 of 7 days/Wk (IRF) Estimated Hrs Per Day: 1.5 hours per day Agreement: Yes Rehab Potential: Good Time/GCodes Start Time: 13:00 Stop Time: 13:25 Total Time Billed (hr/min): 25 Billed Treatment Time 1, EX x2 Genoveva Mccloud OT Oct 15, 2020 13:32
--- NOTE | 2020-10-15 18:42 | Progress Note - Cardiology ---
Cardiology SOAP Progress Note Subjective: Gen weakness and malaise No n/v/d No swelling or palp No cp or palp or syncope Objective: I&O/Vital Signs 10/15/20 10/15/20 07:54 13:31 Temp 37.3 37.9 Pulse 92 102 Resp 18 18 B/P (MAP) 130/60 (83) 120/59 (79) Pulse Ox 95 96 O2 Delivery Room Air Room Air Weight (Pounds): 174 Weight (Ounces): 12.8 Weight (Calculated Kilograms): 79.117011 Constitutional: AAO x 3, well-developed, well-nourished Respiratory: No accessory muscle use; other (fair to good bilateral air entry, diminished at the bases) Cardiovascular: regular rate-rhythm, S1 and S2, systolic murmur (soft ASHLEY at the cardiac base) Gastrointestional: No tender; soft; No guarding, No rebound; audible bowel sounds Extremities: No clubbing, No cyanosis, No significant edema Neurologic/Psychiatric: alert, oriented x 3, other (appears to be able to move all limbs equally; we did not attempt any motion at the hips) Skin: No rash on exposed areas, No ulcerations on exposed areas Results/Procedures: Labs Laboratory Tests 10/15/20 05:27: White Blood Count 6.8, Red Blood Count 2.81L, Hemoglobin 8.7L, Hematocrit 28L, Mean Corpuscular Volume 101H, Mean Corpuscular Hemoglobin 31, Mean Corpuscular Hemoglobin Concent 31L, Red Cell Distribution Width 16.3H, Platelet Count 236, Mean Platelet Volume 9.9, Immature Granulocyte % (Auto) 1, Neutrophils (%) (Auto) 75, Lymphocytes (%) (Auto) 14, Monocytes (%) (Auto) 9, Eosinophils (%) (Auto) 1, Basophils (%) (Auto) 0, Neutrophils # (Auto) 5.0, Lymphocytes # (Auto) 1.0, Monocytes # (Auto) 0.6, Eosinophils # (Auto) 0.1, Basophils # (Auto) 0.0, Immature Granulocyte # (Auto) 0.1, Sodium Level 136, Potassium Level 3.8, Chloride Level 101, Carbon Dioxide Level 29, Anion Gap 6, Blood Urea Nitrogen 15, Creatinine 0.60, Estimat Glomerular Filtration Rate 95, BUN/Creatinine Ratio 25, Glucose Level 135H, Calcium Level 8.8, Corrected Calcium 9.8, Total Bilirubin 1.3H, Aspartate Amino Transf (AST/SGOT) 20, Alanine Aminotransferase (ALT/SGPT) 18, Alkaline Phosphatase 80, Total Protein 5.4L, Albumin 2.8L Laboratory Tests 10/15/20 05:27 Physician Assessment Physician Assessment Assessment and Plan: L hip fracture, status post repair at [facility], recovering and receiving physical therapy. Anemia, postop, received blood transfusion, continue to monitor H&H. Aortic valve stenosis, history of TAVR done in June 2020, complicated by CVA. Doing well at this time History of massive pulmonary embolism treated with thrombolytics in April 2017 and maintained on [facility] Cardiac catheterization done in December 2019 reporting no significant obstructive disease in the coronary system. Normal right heart pressure with no signs of shunt. 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 Barton at [facility] Lower extremity pain and claudication, segmental work-up was negative. Mild carotid disease, continue to monitor Sleep apnea, followed and managed by primary care physician History of cochlear implant. LAYLA ELLISON MD FACP FAC CCDS Oct 15, 2020 18:42
[2020-10-15 20:00] VITALS: BP 128/73
[2020-10-15] MEDS: MELATONIN 3 MG TABLET PO SCH (20:05)
[2020-10-16] MEDS: PANTOPRAZOLE 20 MG TABLET (PROTONIX) PO SCH ×2 (06:36→16:09)
[2020-10-16 07:40] VITALS: BP 134/66
--- NOTE | 2020-10-16 08:44 | PM&R Progress Note ---
Subjective HPI/CC On Admission Date Seen by Provider: Oct 16, 2020 Time Seen by Provider: 08:45 Subjective/Events-last exam 10/16/2020: Pt doing pretty well Working with therapy Had an isolated fever yesterday of 100.3 No source 10/15/2020: Pt in a really good mood Bowels moved yesterday Hgb 8.7 No major issues at this current time No falls 10/14/2020: Supportive care Patient denies pain No falls Tylenol given for headache BiPAP at night 10/13/2020: Patient doing really well Use BiPAP last night Bowels moved yesterday Pain is well controlled 10/12/2020: Pt having a headache, Tylenol give RT will set up her BiPAP Hgb 9.[address] Wade to evaluate heart that they were concerned about during her hip fracture repair Review of Systems General: Fatigue Musculoskeletal: leg pain Objective Exam Vital Signs Vital Signs Date Time Temp Pulse Resp B/P (MAP) Pulse Ox O2 Delivery O2 Flow Rate FiO2 10/16/20 20:53 36.2 87 20 136/63 (87) 96 Room Air Capillary Refill : General Appearance: No Apparent Distress, WD/WN, Chronically ill HEENT: PERRL/EOMI, Normal ENT Inspection, Pharynx Normal Neck: Full Range of Motion, Normal Inspection, Non Tender, Supple, Carotid Bruit Respiratory: Chest Non Tender, Lungs Clear, Normal Breath Sounds, No Accessory Muscle Use, No Respiratory Distress Cardiovascular: Regular Rate, Rhythm, No Edema, No Gallop, No JVD, No Murmur, Normal Peripheral Pulses Gastrointestinal: Normal Bowel Sounds, No Organomegaly, No Pulsatile Mass, Non Tender, Soft Back: Normal Inspection, No CVA Tenderness, No Vertebral Tenderness Extremity: Normal Capillary Refill, Normal Inspection, Normal Range of Motion (Except left leg), Non Tender, No Calf Tenderness, No Pedal Edema Neurologic/Psychiatric: Alert, Oriented x3, No Motor/Sensory Deficits, Normal Mood/Affect, town marshal II-XII Norm as Tested, Abnormal Gait, Motor Weakness (Left leg) Skin: Normal Color, Warm/Dry Lymphatic: No Adenopathy Results/Procedures Lab Patient resulted labs reviewed. FIM Transfers Therapy Code Descriptions/Definitions Functional [place] Measure: 0=Not Assessed/NA 4=Minimal Assistance 1=Total Assistance 5=Supervision or Setup 2=Maximal Assistance 6=Modified [place] 3=Moderate Assistance 7=Complete IndependenceSCALE: Activities may be completed with or without assistive devices. 2-Jblvtxepsl-lfsfhuv completes the activity by him/herself with no assistance from a helper. 5-Set-up or Clean-up Assistance-helper sets up or cleans up; patient completes activity. [place] assists only prior to or following the activity. 4-Supervision or Touching Assistance-helper provides verbal cues and/or touching/steadying and/or contact guard assistance as patient completes activity. Assistance may be provided throughout the activity or intermittently. 3-Partial/Moderate Assistance-helper does LESS THAN HALF the effort. [place] lifts, holds or supports trunk or limbs, but provides less than half the effort. 2-Substantial/Maximal Assistance-helper does MORE THAN HALF the effort. [place] lifts or holds trunk or limbs and provides more than half the effort. 9-Sivcdklpa-vklscf does ALL the effort. Patient does none of the effort to complete the activity. Or, the assistance of 2 or more helpers is required for the patient to complete the activity. If activity was not attempted, code reason: 7-Patient Refused. 9-Not Applicable-not attempted and the patient did not perform the activity before the current illness, exacerbation or injury. 10-Not Attempted due to Environmental Limitations-(lack of equipment, weather restraints, etc.). 88-Not Attempted due to Medical Conditions or Safety Concerns. Roll Left to Right (QC): 3 Sit to Lying (QC): 3 Sit to Stand (QC): 3 Chair/Lus-qy-Cjyro Xfer(QC): 5 Car Transfer (QC): 2 Gait Training Does the Patient Walk?: Yes Distance: 200' x2 Walk 10 feet (QC): 4 Walk 50 ft with 2 Turns(QC): 4 Walk 150 ft (QC): 4 Walking 10ft/uneven surface-QC: 4 Gait Persons Needed: 1 Gait Assistive Device: FWW Wheelchair Training Does the Pt Use a Wheelchair?: No Distance: 150 Wheel 50 ft with 2 turns (QC): 4 Wheel 150 ft (QC): 4 Type of Wheelchair: Manual Stair Training #of Steps: 0 1 Step (curb) (QC): 88 4 Steps (QC): 88 12 Steps (QC): 88 Balance Picking up an Object (QC): 88 ADL-Treatment Eating (QC): 5 Oral Hygiene (QC): 4 (sba-cga) Bathing Location: L Arm, R Arm, L Upper Leg, R Upper Leg, L Lower Leg (including foot), R Lower Leg (including foot), Chest, Abdomen, Buttocks, Perineal Area Shower/Bathe Self (QC): 3 (mod) Upper Body Dressing (QC): 3 (Min A for bra only. See below for comments. ) Lower Body Dressing (QC): 3 (Min A) On/Off Footwear (QC): 3 (Min A) Toileting Hygiene (QC): 4 (CGA) Toilet Transfer (QC): 3 (Min A for initial boost off toilet) Assessment/Plan Assessment and Plan Assess & Plan/Chief Complaint Assessment: Status post left hip fracture status post repair at [facility] Acute blood loss anemia requiring 2 units of blood at 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
[2020-10-16] MEDS: SENNA W/DOCUSATE (SENOKOT S) TABLET PO SCH ×2 (09:01→21:09)
[2020-10-16] MEDS: DOCUSATE SODIUM 100 MG (COLACE) CAP PO SCH ×2 (09:01→21:09)
[2020-10-16] MEDS: RIVAROXABAN 20 MG TABLET (XARELTO) PO SCH (09:01)
[2020-10-16] MEDS: VENlafaxine XR 75 MG (EFFEXOR XR) CAP PO SCH (09:06)
[2020-10-16] MEDS: polyethylene glycoL POWDER 17 GM (MIRALAX) PACK PO SCH ×2 (09:06→19:55)
--- NOTE | 2020-10-16 09:17 | Occupational Ther Daily Note ---
OT Current Status-Daily Note Subjective Pt. finishing breakfast in recliner. Pt. Pleasant, c/o of rough night too much going on in head. Pt. agrees to therapy. Mental Status/Objective Patient Orientation: Person, Place, Time, Situation ADL-Treatment Pt. agreed to shower. Pt. ambulated CGA from recliner with FWW to toilet. Pt. held onto grabbars while doffing brief, CGA for balance. Pt. CGA to stabilize with FWW to shower bench. Pt. doffed R sock with steward/stewardess night, started to use steward/stewardess night to doff L sock by grabbing at toes then handed steward/stewardess night to OTAS stating "I don't want this", required assistance doff L sock. Pt. cleansed hair, chest, arms, underarms, abdomen, both upper legs and R lower leg, required assistance L. Pt. stood CGA for balance to cleanse gil/buttocks area. Pt. dropped washcloth on the floor of bathroom and scrunched toes and bottom of L foot on washcloth. Pt. dried off all parts except L LE and foot required assist. Pt. able to thread R foot into brief/pants needed assist to thread L foot in. Pt. stood in shower using grabbars and CGA for balance to hike brief over hips. Pt. CGA with grab bar use to transfer from standing in shower to sitting in w/c. Pt. donned UB dressing once set up. Pt. ambulated CGA, for balance, with FWW to armed chair in room to don socks. Pt. stated remembering equipment, but couldn't remember how to use it. Re-instruction was verbalized and demonstrated, Pt. attempted to duplicate for R sock, required assist for sock to be pulled up on toes more. Therapy Code Descriptions/Definitions Functional [place] Measure: 0=Not Assessed/NA 4=Minimal Assistance 1=Total Assistance 5=Supervision or Setup 2=Maximal Assistance 6=Modified [place] 3=Moderate Assistance 7=Complete IndependenceSCALE: Activities may be completed with or without assistive devices. 2-Wegzqifsvi-bvikhab completes the activity by him/herself with no assistance from a helper. 5-Set-up or Clean-up Assistance-helper sets up or cleans up; patient completes activity. [place] assists only prior to or following the activity. 4-Supervision or Touching Assistance-helper provides verbal cues and/or touching/steadying and/or contact guard assistance as patient completes activity. Assistance may be provided throughout the activity or intermittently. 3-Partial/Moderate Assistance-helper does LESS THAN HALF the effort. [place] li fts, holds or supports trunk or limbs, but provides less than half the effort. 2-Substantial/Maximal Assistance-helper does MORE THAN HALF the effort. [place] lifts or holds trunk or limbs and provides more than half the effort. 1-Zaelrnhww-hrzavy does ALL the effort. Patient does none of the effort to complete the activity. Or, the assistance of 2 or more helpers is required for the patient to complete the activity. If activity was not attempted, code reason: 7-Patient Refused. 9-Not Applicable-not attempted and the patient did not perform the activity before the current illness, exacerbation or injury. 10-Not Attempted due to Environmental Limitations-(lack of equipment, weather restraints, etc.). 88-Not Attempted due to Medical Conditions or Safety Concerns. Bathing Location: L Arm, R Arm, L Upper Leg, R Upper Leg, R Lower Leg (including foot), Chest, Abdomen, Buttocks, Perineal Area Shower/Bathe Self (QC): 3 Upper Body Dressing (QC): 5 Lower Body Dressing (QC): 3 On/Off Footwear: 3 Toileting Hygiene (QC): 4 Toilet Transfer (QC): 4 Other Treatment Pt. stayed seated in armed chair in room to perform UE strengthening exercises. Pt. performed shoulder horizontal abd/add , R/L bicep flex, tricep ext with medi um resistance band 10 reps, 3x's. Pt. given medium exercise sponge, performed cylindrical grasp and release 10 x's. Pt. demonstrated flat pinch grasp and release 10 x's. Pt. left in recliner, phone/call light in reach. All needs met in room. Education Teaching Recipient: Patient Teaching Methods: Demonstration, Discussion Response to Teaching: Verbalize Understanding, Return Demonstration, Reinforcement Needed OT Short Term Goals Short Term Goals Time Frame: Oct 18, 2020 Eatin Oral hygiene: 5 Toileting hygiene: 4 Shower/bathe self: 4 Upper body dressin Lower body dressin Putting on/taking off footwear: 4 OT Load Out Supervisor Goals Load Out Supervisor Goals Time Frame: Oct 22, 2020 Eating (QC): 6 Oral Hygiene (QC): 6 Toileting Hygiene (QC): 6 Shower/Bathe Self (QC): 5 Upper Body Dressing (QC): 6 Lower Body Dressing (QC): 6 On/Off Footwear (QC): 6 1=Demonstrate adherence to instructed precautions during ADL tasks. 2=Patient will verbalize/demonstrate understanding of assistive devices/modifications for ADL. 3=Patient will improve strength/tolerance for activity to enable patient to perform ADL's. OT Education/Plan Problem List/Assessment Assessment: Decreased Activ Tolerance, Decreased Safety Aware, Decreased UE Strength, Impaired Self-Care Skills, Restricted Funct UE ROM Discharge Recommendations Plan/Recommendations: Continue POC Treatment Plan/Plan of Care Patient would benefit from OT for education, treatment and training to promote independence in ADL's, mobility, safety and/or upper extremity function for ADL's. Plan of Care: ADL Retraining, Functional Mobility, Group Exercise/Act as Ind, UE Funct Exercise/Act Treatment Duration: Oct 22, 2020 Frequency: At least 5 of 7 days/Wk (IRF) Estimated Hrs Per Day: 1.5 hours per day Agreement: Yes Rehab Potential: Good Time/GCodes Start Time: 07:30 Stop Time: 09:00 Total Time Billed (hr/min): 90 Billed Treatment Time 1 visit- ADL 4 (60 min), Ex 2 (30 min) KEITH GRANADOS Oct 16, 2020 09:17
--- NOTE | 2020-10-16 10:04 | Physical Therapy Daily Note ---
PT Daily Note-Current Subjective Pt in recliner upon arrival w/ RN in room, pt agrees to tx. Prior to tx, pt states no pain. During tx, pt states pain in L thigh. Pt seems more fatigued and confused today. Pt couldn't recall activities done with PT yesterday. Pain Location: Left, Anterior Location Body Site: Thigh Pain Description: Ache Mental Status Patient Orientation: Person, Confused, Place Transfers SCALE: Activities may be completed with or without assistive devices. 5-Vsoigzgxvx-teolsrn completes the activity by him/herself with no assistance from a helper. 5-Set-up or Clean-up Assistance-helper sets up or cleans up; patient completes activity. [place] assists only prior to or following the activity. 4-Supervision or Touching Assistance-helper provides verbal cues and/or touching/steadying and/or contact guard assistance as patient completes activity. Assistance may be provided throughout the activity or intermittently. 3-Partial/Moderate Assistance-helper does LESS THAN HALF the effort. [place] lifts, holds or supports trunk or limbs, but provides less than half the effort. 2-Substantial/Maximal Assistance-helper does MORE THAN HALF the effort. [place] lifts or holds trunk or limbs and provides more than half the effort. 1-Rmztzrbxg-mwmyoy does ALL the effort. Patient does none of the effort to com plete the activity. Or, the assistance of 2 or more helpers is required for the patient to complete the activity. If activity was not attempted, code reason: 7-Patient Refused. 9-Not Applicable-not attempted and the patient did not perform the activity before the current illness, exacerbation or injury. 10-Not Attempted due to Environmental Limitations-(lack of equipment, weather restraints, etc.). 88-Not Attempted due to Medical Conditions or Safety Concerns. Roll Left & Right (QC): 3 Sit to Lying (QC): 3 Lying to Sitting/Side of Bed(Q: 3 Sit to Stand (QC): 3 Pt required Alexey for sit to lying, requiring VC and TC for positioning. Pt required Alexey for lying to sit on L LE and torso. Weight Bearing Left Lower Extremity: Left Weight Bearing/Tolerated Gait Training Does the Patient Walk?: Yes Distance: 200' x2 Walk 10 feet (QC): 4 Walk 50 ft with 2 Turns(QC): 4 Walk 150 ft (QC): 4 Gait Persons Needed: 1 Gait Assistive Device: FWW Pt required VC often to remind pt to not drag L LE during swing phase. Pt amb around IRU, took seated RB and amb back to room. Exercises Supine Ex: Bridging Seated Therapy Exercises: Ankle pumps, Sit to stand, Long arc quads, Chair press-ups, Hip flexion, Hip abd/add Seated Reps: 15 Pt unable to complete full ROM on L LE d/t pain. Treatments Pt in recliner, sit to stand and sits EOB. Pt instructed to review sit to supine she attempted yesterday. Pt had no recall, required VB, TC, and demonstration to use towel under L LE. LONG WALL MINING MACHINE HELPER A L LE Alexey into getting in bed. Pt instructed to lay like she would to go to sleep, pt had torso leaning to R side, LEs on R side EOB, and pelvic area on L side of bed. LONG WALL MINING MACHINE HELPER asked pt to get centered in bed, pt didn't respond and LONG WALL MINING MACHINE HELPER asked pt again. Pt stated she was comfortable and thats how she would normally sleep. Pt performed supine to sit, requiring multiple VC for placement, as well as Alexey for L LE. Pt repeatedly stopped during supine to sit, requiring LONG WALL MINING MACHINE HELPER to instruct pt what we were doing. Pt amb around IRU, and takes seated RB. During RB, pt performs seated ex. Pt amb back to room and request to use BR. Pt able to doff pants with CGA, but while donning pt attempted to walk from toilet with only brief pulled up. LONG WALL MINING MACHINE HELPER instructed pt that she needed to pull her pants up, Pt seemed confused, LONG WALL MINING MACHINE HELPER gave TC that pts pants needed to be pulled up. Pt returns to recliner with all needs met, call light in hand. Assessment Current Status: Fair Progress Pt limited d/t pain and weakness. Pt more confused. PT Short Term Goals Short Term Goals Time Frame: Oct 19, 2020 Roll Left & Right: 4 Sit to lyin Lying to sitting on side of be: 4 Sit to stand: 4 Chair/sog-rg-mojtj transfer: 4 Toilet transfer: 4 Car transfer: 4 Walk 10 feet: 5 Walk 50 feet with two turns: 5 Walk 150 feet: 5 Walking 10ft on uneven surface: 5 1 step (curb): 4 4 steps: 4 12 steps: 4 Picking up objects: 3 Does pt use a wc or scooter: No Wheel 50ft w/2 turns: 6 Wheel 150 feet: 6 Type: Manual PT Senior Technical Specialist Goals Senior Technical Specialist Goals PT Senior Technical Specialist Goals Time Frame: Nov 08, 2020 Roll Left & Right (QC): 6 Sit to Lying (QC): 6 Lying-Sitting on Side/Bed(QC): 6 Sit to Stand (QC): 6 Chair/Ysx-hu-Eemtg Xfer(QC): 6 Toilet Transfer (QC): 6 Car Transfer (QC): 6 Does the Patient Walk: Yes Walk 10 feet (QC): 6 Walk 50ft with 2 Turns (QC): 6 Walk 150 ft (QC): 6 Walking 10ft on Uneven Surface: 6 1 Step (curb) (QC): 6 4 Steps (QC): 6 12 Steps (QC): 6 Picking up an Object (QC): 6 Does the Pt use WC or Scooter?: No Wheel 50 feet with 2 turns (QC: 6 Type: Manual Wheel 150 feet: 6 Type: Manual PT Plan Treatment/Plan Treatment Plan: Continue Plan of Care Treatment Plan: Bed Mobility, Education, Functional Activity Priya, Functional Strength, Group Therapy, Gait, Safety, Therapeutic Exercise, Transfers Treatment Duration: Dec 14, 2020 Frequency: At least 5 of 7 days/Wk (IRF) Estimated Hrs Per Day: 1.5 hours per day Patient and/or Family Agrees t: Yes Safety Risks/Education Patient Education: Gait Training, Correct Positioning Teaching Recipient: Patient Teaching Methods: Demonstration, Discussion Response to Teaching: Verbalize Understanding, Return Demonstration, Reinforcement Needed Time/GCodes Time In: 900 Time Out: 1000 Total Billed Treatment Time: 60 Total Billed Treatment 1, GT, EX, FA x2 ANGEL NYE PTA Oct 16, 2020 10:04
--- NOTE | 2020-10-16 11:01 | Progress Note - Cardiology ---
Cardiology SOAP Progress Note Subjective: Gen malaise and weakness present No cp or palp or syncope or shortness of breath No n/v/d Objective: I&O/Vital Signs 10/16/20 07:40 Temp 37.0 Pulse 97 Resp 16 B/P (MAP) 134/66 (88) Pulse Ox 94 O2 Delivery Room Air Weight (Pounds): 174 Weight (Ounces): 12.8 Weight (Calculated Kilograms): 79.268093 Constitutional: AAO x 3, well-developed, well-nourished Respiratory: No accessory muscle use; other (fair to good bilateral air entry, diminished at the bases) Cardiovascular: regular rate-rhythm, S1 and S2, systolic murmur (soft ASHLEY at the cardiac base) Gastrointestional: No tender; soft; No guarding, No rebound; audible bowel sounds Extremities: No clubbing, No cyanosis, No significant edema Neurologic/Psychiatric: alert, other (appears to be able to move all limbs equally; appears to have poor memory; appears to have mild L-sided weakness) Skin: No rash on exposed areas, No ulcerations on exposed areas Results/Procedures: Labs Laboratory Tests 10/15/20 05:27 A/P: Assessment: Hospitalization to inpatient rehab (Dr Mcintosh) on 10/11/20 following L hip fracture repair at [facility] - post-op anemia is being managed by Dr Mcintosh H/o aortic stenosis -S/P TAVR by Dr. Chang at [facility] June 2020 - subsquent CVA requiring transfer to [facility] neurology for thromboembolectomy by Dr. Ornelas (neuro-surgery) and Dr. De Santiago (neurologist) - per daughters report (records not available) - Echocardiogram of 08-01-20 post TAVR - LVEF 50-55%; mild MR; bioprosthetic aortic valve with peak gradient 11 and mean gradient 7 mmHg. Trivial AoR with very mild stenosis; can not exclude small PFO H/o CVA post TAVR in June 2020 -treated with R MCA thromboembolectomy at [place], [place], with improvement but not complete resolution of L-sided weakness and R-sided gaze preference Right superficial femoral artery pseudoaneursym after cardiac cath of Dec 27, 2019, treated with thrombin injection by Dr. 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
--- NOTE | 2020-10-16 11:30 | Physical Therapy Daily Note ---
PT Daily Note-Current Subjective Pt in recliner upon arrival and agrees to tx. Pt states no pain in L thigh att. Mental Status Patient Orientation: Person, Place, Time, Situation Transfers SCALE: Activities may be completed with or without assistive devices. 6-Fzcxczspmz-dyxdvxp completes the activity by him/herself with no assistance from a helper. 5-Set-up or Clean-up Assistance-helper sets up or cleans up; patient completes activity. [place] assists only prior to or following the activity. 4-Supervision or Touching Assistance-helper provides verbal cues and/or touching/steadying and/or contact guard assistance as patient completes activity. Assistance may be provided throughout the activity or intermittently. 3-Partial/Moderate Assistance-helper does LESS THAN HALF the effort. [place] lifts, holds or supports trunk or limbs, but provides less than half the effort. 2-Substantial/Maximal Assistance-helper does MORE THAN HALF the effort. [place] lifts or holds trunk or limbs and provides more than half the effort. 7-Jjwcdrhwc-iezjlv does ALL the effort. Patient does none of the effort to complete the activity. Or, the assistance of 2 or more helpers is required for the patient to complete the activity. If activity was not attempted, code reason: 7-Patient Refused. 9-Not Applicable-not attempted and the patient did not perform the activity before the current illness, exacerbation or injury. 10-Not Attempted due to Environmental Limitations-(lack of equipment, weather restraints, etc.). 88-Not Attempted due to Medical Conditions or Safety Concerns. Sit to Stand (QC): 3 Pt requires Min/ModA for sit to stand, dependent on height of seat. Weight Bearing Left Lower Extremity: Left Weight Bearing/Tolerated Gait Training Does the Patient Walk?: Yes Distance: 200', 100' Walk 10 feet (QC): 3 Walk 50 ft with 2 Turns(QC): 3 Walk 150 ft (QC): 3 Gait Persons Needed: 1 Gait Assistive Device: FWW Pt amb around IRU Alexey w/ FWW. Pt had no gait deviations noted at this time. Pt slightly WB through UE. Treatments Pt sit to stand from recliner and amb around ARU, requiring one seated RB. Pt sits EOB once returning to room. Pt performs dynamic seated balance activity, moving objects on bedside table from one side to the other w/ one UE followed by the other with no support. Pt able to do so CGA. Pt performs same activity standing, with no support from UE. Pt required CGA for dynamic standing balance activity as well. Pt returns to recliner and is left with all needs met, call light in hand. Assessment Current Status: Good Progress Pt has increased endurance and requires less assistance when experiencing less/no pain. PT Short Term Goals Short Term Goals Time Frame: Oct 19, 2020 Roll Left & Right: 4 Sit to lyin Lying to sitting on side of be: 4 Sit to stand: 4 Chair/mwi-xx-wermw transfer: 4 Toilet transfer: 4 Car transfer: 4 Walk 10 feet: 5 Walk 50 feet with two turns: 5 Walk 150 feet: 5 Walking 10ft on uneven surface: 5 1 step (curb): 4 4 steps: 4 12 steps: 4 Picking up objects: 3 Does pt use a wc or scooter: No Wheel 50ft w/2 turns: 6 Wheel 150 feet: 6 Type: Manual PT Policy Change Clerks Supervisor Goals Policy Change Clerks Supervisor Goals PT Policy Change Clerks Supervisor Goals Time Frame: Nov 08, 2020 Roll Left & Right (QC): 6 Sit to Lying (QC): 6 Lying-Sitting on Side/Bed(QC): 6 Sit to Stand (QC): 6 Chair/Bbe-hj-Qqslm Xfer(QC): 6 Toilet Transfer (QC): 6 Car Transfer (QC): 6 Does the Patient Walk: Yes Walk 10 feet (QC): 6 Walk 50ft with 2 Turns (QC): 6 Walk 150 ft (QC): 6 Walking 10ft on Uneven Surface: 6 1 Step (curb) (QC): 6 4 Steps (QC): 6 12 Steps (QC): 6 Picking up an Object (QC): 6 Does the Pt use WC or Scooter?: No Wheel 50 feet with 2 turns (QC: 6 Type: Manual Wheel 150 feet: 6 Type: Manual PT Plan Treatment/Plan Treatment Plan: Continue Plan of Care Treatment Plan: Bed Mobility, Education, Functional Activity Priya, Functional Strength, Group Therapy, Gait, Safety, Therapeutic Exercise, Transfers Treatment Duration: Dec 14, 2020 Frequency: At least 5 of 7 days/Wk (IRF) Estimated Hrs Per Day: 1.5 hours per day Patient and/or Family Agrees t: Yes Time/GCodes Time In: 1100 Time Out: 1130 Total Billed Treatment Time: 30 Total Billed Treatment 1, GT, NM POPEYE,ANGEL PACKING CHECKER Oct 16, 2020 11:30
[2020-10-16] MEDS ORDERED: SIME125T59 PO (15:43)
[2020-10-16] MEDS ORDERED: POLY17PO6 PO (15:43)
[2020-10-16] MEDS ORDERED: ACET-2267 PO (15:43)
[2020-10-16 20:53] VITALS: BP 136/63
[2020-10-16] MEDS: MELATONIN 3 MG TABLET PO SCH (21:09)
[2020-10-17] MEDS: PANTOPRAZOLE 20 MG TABLET (PROTONIX) PO SCH ×2 (06:31→16:56)
[2020-10-17] MEDS: VENlafaxine XR 75 MG (EFFEXOR XR) CAP PO SCH (07:36)
[2020-10-17] MEDS: DOCUSATE SODIUM 100 MG (COLACE) CAP PO SCH ×2 (07:36→20:09)
[2020-10-17] MEDS: polyethylene glycoL POWDER 17 GM (MIRALAX) PACK PO SCH ×2 (07:36→19:28)
[2020-10-17] MEDS: RIVAROXABAN 20 MG TABLET (XARELTO) PO SCH (07:36)
[2020-10-17] MEDS: SENNA W/DOCUSATE (SENOKOT S) TABLET PO SCH ×2 (07:36→20:08)
[2020-10-17 07:42] VITALS: BP 143/63
--- NOTE | 2020-10-17 09:52 | Occupational Ther Daily Note ---
OT Current Status-Daily Note Subjective Pt. alert in recliner, eating breakfast. Pt. had a good night, no c/o pain. Pt. agrees to therapy. Mental Status/Objective Patient Orientation: Person, Place, Time, Situation ADL-Treatment Pt. ambulated with FWW to toilet SBA, able to don/doff brief with R hand by holding stable with L hand on grab bar. Pt. performed oral care standing at sink SBA. Pt. ambulated SBA to recliner. Pt. donned UB dressing after set up. Pt. donned LB dressing after set up, one verbal cue for threading brief L foot first. Pt. thread R foot first in pants and was able manipulate cloth to push L foot forward second. Pt. SBA to stand to hike brief/pants up over hips. Pt. SBA transfer to bed with FWW. Pt. lying in bed, call light/phone in reach. All needs met in room. Therapy Code Descriptions/Definitions Functional [place] Measure: 0=Not Assessed/NA 4=Minimal Assistance 1=Total Assistance 5=Supervision or Setup 2=Maximal Assistance 6=Modified [place] 3=Moderate Assistance 7=Complete IndependenceSCALE: Activities may be completed with or without assistive devices. 6-Cniitfwyac-noyjzrn completes the activity by him/herself with no assistance from a helper. 5-Set-up or Clean-up Assistance-helper sets up or cleans up; patient completes activity. [place] assists only prior to or following the activity. 4-Supervision or Touching Assistance-helper provides verbal cues and/or touching/steadying and/or contact guard assistance as patient completes activity. Assistance may be provided throughout the activity or intermittently. 3-Partial/Moderate Assistance-helper does LESS THAN HALF the effort. [place] lifts, holds or supports trunk or limbs, but provides less than half the effort. 2-Substantial/Maximal Assistance-helper does MORE THAN HALF the effort. [place] lifts or holds trunk or limbs and provides more than half the effort. 8-Cmhguqcvm-lwkqsk does ALL the effort. Patient does none of the effort to complete the activity. Or, the assistance of 2 or more helpers is required for the patient to complete the activity. If activity was not attempted, code reason: 7-Patient Refused. 9-Not Applicable-not attempted and the patient did not perform the activity before the current illness, exacerbation or injury. 10-Not Attempted due to Environmental Limitations-(lack of equipment, weather restraints, etc.). 88-Not Attempted due to Medical Conditions or Safety Concerns. Eating (QC): 6 Oral Hygiene (QC): 6 Upper Body Dressing (QC): 5 Lower Body Dressing (QC): 4 Toileting Hygiene (QC): 6 Toilet Transfer (QC): 6 Education Teaching Methods: Demonstration, Discussion Response to Teaching: Verbalize Understanding OT Short Term Goals Short Term Goals Time Frame: Oct 18, 2020 Eatin Oral hygiene: 5 Toileting hygiene: 4 Shower/bathe self: 4 Upper body dressin Lower body dressin Putting on/taking off footwear: 4 OT Fci Goals Fci Goals Time Frame: Oct 22, 2020 Eating (QC): 6 Oral Hygiene (QC): 6 Toileting Hygiene (QC): 6 Shower/Bathe Self (QC): 5 Upper Body Dressing (QC): 6 Lower Body Dressing (QC): 6 On/Off Footwear (QC): 6 1=Demonstrate adherence to instructed precautions during ADL tasks. 2=Patient will verbalize/demonstrate understanding of assistive devices/modifications for ADL. 3=Patient will improve strength/tolerance for activity to enable patient to perform ADL's. OT Education/Plan Problem List/Assessment Assessment: Decreased Activ Tolerance, Decreased Safety Aware, Decreased UE Strength, Impaired Self-Care Skills Discharge Recommendations Plan/Recommendations: Continue POC Treatment Plan/Plan of Care Patient would benefit from OT for education, treatment and training to promote independence in ADL's, mobility, safety and/or upper extremity function for ADL's. Plan of Care: ADL Retraining, Functional Mobility, Group Exercise/Act as Ind, UE Funct Exercise/Act Treatment Duration: Oct 22, 2020 Frequency: At least 5 of 7 days/Wk (IRF) Estimated Hrs Per Day: 1.5 hours per day Agreement: Yes Rehab Potential: Good Time/GCodes Start Time: 07:30 Stop Time: 08:30 Total Time Billed (hr/min): 60 Billed Treatment Time 1 visit- 4 ADL (60 min) KEITH GRANADOS Oct 17, 2020 09:52
--- NOTE | 2020-10-17 10:40 | Progress Note - Cardiology ---
Cardiology SOAP Progress Note Subjective: Gen malaise and weakness No cp or palp or syncope No n/v/d No shortness of breath at rest Objective: I&O/Vital Signs 10/17/20 10/17/20 07:42 09:00 Temp 36.8 Pulse 87 Resp 18 B/P (MAP) 143/63 (89) Pulse Ox 100 O2 Delivery Room Air Room Air Weight (Pounds): 174 Weight (Ounces): 12.8 Weight (Calculated Kilograms): 79.748431 Constitutional: AAO x 3, well-developed, well-nourished Respiratory: No accessory muscle use; other (fair to good bilateral air entry, diminished at the bases) Cardiovascular: regular rate-rhythm, S1 and S2, systolic murmur (soft ASHLEY at the cardiac base) Gastrointestional: No tender; soft; No guarding, No rebound; audible bowel sounds Extremities: No clubbing, No cyanosis, No significant edema Neurologic/Psychiatric: alert, other (appears to be able to move all limbs equally; appears to have poor memory; appears to have mild L-sided weakness) Skin: No rash on exposed areas, No ulcerations on exposed areas A/P: Assessment: Hospitalization to inpatient rehab (Dr Mcintosh) on 10/11/20 following L hip fracture repair at [facility] - post-op anemia is being managed by Dr Mcintosh H/o aortic stenosis -S/P TAVR by Dr. Chang at [facility] June 2020 - subsquent CVA requiring transfer to [facility] neurology for thromboembolectomy by Dr. Ornelas (neuro-surgery) and Dr. De Santiago (neurologist) - per daughters report (records not available) - Echocardiogram of 08-01-20 post TAVR - LVEF 50-55%; mild MR; bioprosthetic aortic valve with peak gradient 11 and mean gradient 7 mmHg. Trivial AoR with very mild stenosis; can not exclude small PFO H/o CVA post TAVR in June 2020 -treated with R MCA thromboembolectomy at [place], with improvement but not complete resolution of L-sided weakness and R-sided gaze preference Right superficial femoral artery pseudoaneursym after cardiac cath of Dec 27, 2019, treated with thrombin injection by Dr. 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
--- NOTE | 2020-10-17 10:43 | PM&R Progress Note ---
Subjective HPI/CC On Admission Date Seen by Provider: Oct 17, 2020 Time Seen by Provider: 10:45 Subjective/Events-last exam 10/17/2020: Pt doing really well Having some formed bowel movement so will initiate fleets enema to completely evacuate Weaning BiPAP at night Will return to [place] when she is done with inpatient rehab 10/16/2020: Pt doing pretty well Working with therapy Had an isolated fever yesterday of 100.3 No source 10/15/2020: Pt in a really good mood Bowels moved yesterday Hgb 8.7 No major issues at this current time No falls 10/14/2020: Supportive care Patient denies pain No falls Tylenol given for headache BiPAP at night 10/13/2020: Patient doing really well Use BiPAP last night Bowels moved yesterday Pain is well controlled 10/12/2020: Pt having a headache, Tylenol give RT will set up her BiPAP Hgb 9.[address] [place] [address] Wade to evaluate heart that they were concerned about during her hip fracture repair Review of Systems General: Fatigue, Malaise Musculoskeletal: leg pain Objective Exam Vital Signs Vital Signs Date Time Temp Pulse Resp B/P (MAP) Pulse Ox O2 Delivery O2 Flow Rate FiO2 10/17/20 20:00 37.5 94 18 129/58 (81) 97 Room Air Capillary Refill : General Appearance: No Apparent Distress, WD/WN, Chronically ill HEENT: PERRL/EOMI, Normal ENT Inspection, Pharynx Normal Neck: Full Range of Motion, Normal Inspection, Non Tender, Supple, Carotid Bruit Respiratory: Chest Non Tender, Lungs Clear, Normal Breath Sounds, No Accessory Muscle Use, No Respiratory Distress Cardiovascular: Regular Rate, Rhythm, No Edema, No Gallop, No JVD, No Murmur, Normal Peripheral Pulses Gastrointestinal: Normal Bowel Sounds, No Organomegaly, No Pulsatile Mass, Non Tender, Soft Back: Normal Inspection, No CVA Tenderness, No Vertebral Tenderness Extremity: Normal Capillary Refill, Normal Inspection, Normal Range of Motion (Except left leg), Non Tender, No Calf Tenderness, No Pedal Edema Neurologic/Psychiatric: Alert, Oriented x3, No Motor/Sensory Deficits, Normal Mood/Affect, acid retort operator II-XII Norm as Tested, Abnormal Gait, Motor Weakness (Left leg) Skin: Normal Color, Warm/Dry Lymphatic: No Adenopathy Results/Procedures Lab Patient resulted labs reviewed. FIM Transfers Therapy Code Descriptions/Definitions Functional [place] Measure: 0=Not Assessed/NA 4=Minimal Assistance 1=Total Assistance 5=Supervision or Setup 2=Maximal Assistance 6=Modified [place] 3=Moderate Assistance 7=Complete IndependenceSCALE: Activities may be completed with or without assistive devices. 9-Mwdpkbvpie-qepcnbq completes the activity by him/herself with no assistance from a helper. 5-Set-up or Clean-up Assistance-helper sets up or cleans up; patient completes activity. [place] assists only prior to or following the activity. 4-Supervision or Touching Assistance-helper provides verbal cues and/or touching/steadying and/or contact guard assistance as patient completes activity. Assistance may be provided throughout the activity or intermittently. 3-Partial/Moderate Assistance-helper does LESS THAN HALF the effort. [place] lifts, holds or supports trunk or limbs, but provides less than half the effort. 2-Substantial/Maximal Assistance-helper does MORE THAN HALF the effort. [place] lifts or holds trunk or limbs and provides more than half the effort. 9-Ntailbsgn-xnicww does ALL the effort. Patient does none of the effort to complete the activity. Or, the assistance of 2 or more helpers is required for the patient to complete the activity. If activity was not attempted, code reason: 7-Patient Refused. 9-Not Applicable-not attempted and the patient did not perform the activity before the current illness, exacerbation or injury. 10-Not Attempted due to Environmental Limitations-(lack of equipment, weather restraints, etc.). 88-Not Attempted due to Medical Conditions or Safety Concerns. Roll Left to Right (QC): 3 Sit to Lying (QC): 3 Sit to Stand (QC): 3 Chair/Fjh-jv-Rtfxo Xfer(QC): 5 Car Transfer (QC): 2 Gait Training Does the Patient Walk?: Yes Distance: 200', 100' Walk 10 feet (QC): 3 Walk 50 ft with 2 Turns(QC): 3 Walk 150 ft (QC): 3 Walking 10ft/uneven surface-QC: 4 Gait Persons Needed: 1 Gait Assistive Device: FWW Wheelchair Training Does the Pt Use a Wheelchair?: No Distance: 150 Wheel 50 ft with 2 turns (QC): 4 Wheel 150 ft (QC): 4 Type of Wheelchair: Manual Stair Training #of Steps: 0 1 Step (curb) (QC): 88 4 Steps (QC): 88 12 Steps (QC): 88 Balance Picking up an Object (QC): 88 ADL-Treatment Eating (QC): 6 Oral Hygiene (QC): 6 Bathing Location: L Arm, R Arm, L Upper Leg, R Upper Leg, R Lower Leg (including foot), Chest, Abdomen, Buttocks, Perineal Area Shower/Bathe Self (QC): 3 Upper Body Dressing (QC): 5 Lower Body Dressing (QC): 4 On/Off Footwear (QC): 3 Toileting Hygiene (QC): 6 Toilet Transfer (QC): 6 Assessment/Plan Assessment and Plan Assess & Plan/Chief Complaint Assessment: Status post left hip fracture status post repair at [facility] Acute blood loss anemia requiring 2 units of blood at [facility] 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 History of [place] 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 ABIGAIL on biPAP Cochlear implant GERD IBS RLS Plan: Inpatient rehab protocol Monitor hemoglobin Home meds 10/12/2020: Cardiology consult Monitor closely Pain control 10/13/2020: Pain control BiPAP at night Oral anticoagulation 10/14/2020: BiPAP at night Maintain Xarelto Monitor closely 10/15/2020: Low-grade fever we will monitor closely Labs normal today 10/16/2020: Supportive care Monitor for fever 10/17/2020: Improved status Supportive care Pain control (1) Closed intertrochanteric fracture of left hip Status: Acute DUNG KEYS DO Oct 17, 2020 10:43
--- NOTE | 2020-10-17 10:53 | Physical Therapy Daily Note ---
PT Daily Note-Current Subjective Patient in bed pre tx, agrees to PT, has 7/10 pain in left hip. Appearance Patient in restroom post tx with nursing. Mental Status Patient Orientation: Person, Confused, Situation Transfers SCALE: Activities may be completed with or without assistive devices. 0-Vwaxfivlve-qaupblr completes the activity by him/herself with no assistance from a helper. 5-Set-up or Clean-up Assistance-helper sets up or cleans up; patient completes activity. [place] assists only prior to or following the activity. 4-Supervision or Touching Assistance-helper provides verbal cues and/or touching/steadying and/or contact guard assistance as patient completes activity. Assistance may be provided throughout the activity or intermittently. 3-Partial/Moderate Assistance-helper does LESS THAN HALF the effort. [place] lifts, holds or supports trunk or limbs, but provides less than half the effort. 2-Substantial/Maximal Assistance-helper does MORE THAN HALF the effort. [place] lifts or holds trunk or limbs and provides more than half the effort. 3-Tevlnglxv-wbudpr does ALL the effort. Patient does none of the effort to complete the activity. Or, the assistance of 2 or more helpers is required for the patient to complete the activity. If activity was not attempted, code reason: 7-Patient Refused. 9-Not Applicable-not attempted and the patient did not perform the activity be fore the current illness, exacerbation or injury. 10-Not Attempted due to Environmental Limitations-(lack of equipment, weather restraints, etc.). 88-Not Attempted due to Medical Conditions or Safety Concerns. Roll Left & Right (QC): 3 Sit to Lying (QC): 3 Lying to Sitting/Side of Bed(Q: 3 Sit to Stand (QC): 4 Chair/Brt-hy-Bqcok Xfer(QC): 4 Patient min to mod assist with supine <-> sit, often has some difficulty with sit to stand and may need cues for hand placement and positioning but can do it with CGA/SBA Weight Bearing Left Lower Extremity: Left Weight Bearing/Tolerated Gait Training Distance: 200'x2 Walk 10 feet (QC): 4 Walk 50 ft with 2 Turns(QC): 4 Walk 150 ft (QC): 4 Gait Persons Needed: 1 Gait Assistive Device: FWW slow but steady ambulation, antalgic Exercises Supine Ex: Ankle pumps, Quad Set, Glut sets, Heel Slides (AAROM), Short Arc Quads, Straight leg raise (AAROM), Hip abd/add (AAROM) Supine Reps: 20 LAQ alternating for 5 min NuStep Minutes: 15 NuStep Workload: 4 Treatments bed mobility and transfers, ambulation, LE strengthening and ROM Assessment Current Status: Fair Progress improving endurance PT Short Term Goals Short Term Goals Time Frame: Oct 19, 2020 Roll Left & Right: 4 Sit to lyin Lying to sitting on side of be: 4 Sit to stand: 4 Chair/jhc-dr-dplis transfer: 4 Toilet transfer: 4 Car transfer: 4 Walk 10 feet: 5 Walk 50 feet with two turns: 5 Walk 150 feet: 5 Walking 10ft on uneven surface: 5 1 step (curb): 4 4 steps: 4 12 steps: 4 Picking up objects: 3 Does pt use a wc or scooter: No Wheel 50ft w/2 turns: 6 Wheel 150 feet: 6 Type: Manual PT Radial Drill Operator Goals Longterm Goals PT Radial Drill Operator Goals Time Frame: Nov 08, 2020 Roll Left & Right (QC): 6 Sit to Lying (QC): 6 Lying-Sitting on Side/Bed(QC): 6 Sit to Stand (QC): 6 Chair/Gjo-nr-Patjx Xfer(QC): 6 Toilet Transfer (QC): 6 Car Transfer (QC): 6 Does the Patient Walk: Yes Walk 10 feet (QC): 6 Walk 50ft with 2 Turns (QC): 6 Walk 150 ft (QC): 6 Walking 10ft on Uneven Surface: 6 1 Step (curb) (QC): 6 4 Steps (QC): 6 12 Steps (QC): 6 Picking up an Object (QC): 6 Does the Pt use WC or Scooter?: No Wheel 50 feet with 2 turns (QC: 6 Type: Manual Wheel 150 feet: 6 Type: Manual PT Plan Problem List Problem List: Activity Tolerance, Functional Strength, Safety, Balance, Gait, Transfer, Bed Mobility, ROM Treatment/Plan Treatment Plan: Continue Plan of Care Treatment Plan: Bed Mobility, Education, Functional Activity Priya, Functional Strength, Group Therapy, Gait, Safety, Therapeutic Exercise, Transfers Treatment Duration: Dec 14, 2020 Frequency: At least 5 of 7 days/Wk (IRF) Estimated Hrs Per Day: 1.5 hours per day Patient and/or Family Agrees t: Yes Safety Risks/Education Patient Education: Gait Training, Transfer Techniques, Correct Positioning, Safety Issues Teaching Recipient: Patient Teaching Methods: Demonstration, Discussion Response to Teaching: Reinforcement Needed Time/GCodes Time In: 1000 Time Out: 1100 Total Billed Treatment Time: 60 Total Billed Treatment 1 visit EX 40' GT 20' ANNAMARIA GARCIA PT Oct 17, 2020 10:53
[2020-10-17] MEDS: FLEET ENEMA ADULT 1 EA BTL PR PRN (11:10)
--- NOTE | 2020-10-17 14:29 | Therapy Group Daily Note ---
Therapy Daily Group Note Patient Education Topic Other List Below (ARU, transfers, bed mobility) Exercises LE Seated Exercise, UE Exercise Session Ratio (pt:therapist): 4:1 Goal of Session: Education on ARU Expectations, UE/LE Strengthing, Safety with Transfers Goal Met for this Session: Yes Pt Benefit of Group: Contributions to Others, F/U Use of Strategies @Home, Increased Functional Safety, Increased Functional Strength, Improved Cognition, Recognition of Peers, Socialization Other/Notes Pt ambulated using FWW to [facility] area for OT/PT group. Group consisted of introductions (name, place living, favorite restaurant), socialization, B UE/LE seated exercises and education on bed mobility/transfers. Pt introduced self appropriately and actively listened to peers. Pt acknowledged understanding of educational topics by nodding head in affirmation/verbalization. Pt able to complete B UE/LE seated exercises without difficulty. After therapy, pt lying in bed with call light/phone in reach. All needs met in room. Start Time: 13:00 Stop Time: 14:10 Total Billed Treatment Time: 70 Total Billed Treatment 1-KEITH SMALLS Oct 17, 2020 14:29
[2020-10-17 20:00] VITALS: BP 129/58
[2020-10-17] MEDS: MELATONIN 3 MG TABLET PO SCH (20:09)
--- NOTE | 2020-10-18 05:42 | PM&R Progress Note ---
Subjective HPI/CC On Admission Date Seen by Provider: Oct 18, 2020 Time Seen by Provider: 12:00 Subjective/Events-last exam 10/18/2020: Patient doing pretty well Wonders how she will get back to [place] and I told her social worker delinquency prevention would arrange Bowels moved yesterday Discharge plan for 10/24/2020 10/17/2020: Pt doing really well Having some formed bowel movement so will initiate fleets enema to completely evacuate Weaning BiPAP at night Will return to [place] when she is done with inpatient rehab 10/16/2020: Pt doing pretty well Working with therapy Had an isolated fever yesterday of 100.3 No source 10/15/2020: Pt in a really good mood Bowels moved yesterday Hgb 8.7 No major issues at this current time No falls 10/14/2020: Supportive care Patient denies pain No falls Tylenol given for headache BiPAP at night 10/13/2020: Patient doing really well Use BiPAP last night Bowels moved yesterday Pain is well controlled 10/12/2020: Pt having a headache, Tylenol give RT will set up her BiPAP Hgb 9.[address] Wade to evaluate heart that they were concerned about during her hip fracture repair Review of Systems General: Fatigue, Malaise Musculoskeletal: leg pain Objective Exam Vital Signs Vital Signs Date Time Temp Pulse Resp B/P (MAP) Pulse Ox O2 Delivery O2 Flow Rate FiO2 10/18/20 20:00 36.7 92 18 127/58 (81) 93 Room Air Capillary Refill : General Appearance: No Apparent Distress, WD/WN, Chronically ill HEENT: PERRL/EOMI, Normal ENT Inspection, Pharynx Normal Neck: Full Range of Motion, Normal Inspection, Non Tender, Supple, Carotid Bruit Respiratory: Chest Non Tender, Lungs Clear, Normal Breath Sounds, No Accessory Muscle Use, No Respiratory Distress Cardiovascular: Regular Rate, Rhythm, No Edema, No Gallop, No JVD, No Murmur, Normal Peripheral Pulses Gastrointestinal: Normal Bowel Sounds, No Organomegaly, No Pulsatile Mass, Non Tender, Soft Back: Normal Inspection, No CVA Tenderness, No Vertebral Tenderness Extremity: Normal Capillary Refill, Normal Inspection, Normal Range of Motion (Except left leg), Non Tender, No Calf Tenderness, No Pedal Edema Neurologic/Psychiatric: Alert, Oriented x3, No Motor/Sensory Deficits, Normal Mood/Affect, youth counselor II-XII Norm as Tested, Abnormal Gait, Motor Weakness (Left leg) Skin: Normal Color, Warm/Dry Lymphatic: No Adenopathy Results/Procedures Lab Patient resulted labs reviewed. FIM Transfers Therapy Code Descriptions/Definitions Functional [place] Measure: 0=Not Assessed/NA 4=Minimal Assistance 1=Total Assistance 5=Supervision or Setup 2=Maximal Assistance 6=Modified [place] 3=Moderate Assistance 7=Complete IndependenceSCALE: Activities may be completed with or without assistive devices. 3-Ibybjejzys-gdbmblz completes the activity by him/herself with no assistance from a helper. 5-Set-up or Clean-up Assistance-helper sets up or cleans up; patient completes activity. [place] assists only prior to or following the activity. 4-Supervision or Touching Assistance-helper provides verbal cues and/or touching/steadying and/or contact guard assistance as patient completes activi ty. Assistance may be provided throughout the activity or intermittently. 3-Partial/Moderate Assistance-helper does LESS THAN HALF the effort. [place] lifts, holds or supports trunk or limbs, but provides less than half the effort. 2-Substantial/Maximal Assistance-helper does MORE THAN HALF the effort. [place] lifts or holds trunk or limbs and provides more than half the effort. 2-Zldqnmrfi-dlnjbt does ALL the effort. Patient does none of the effort to complete the activity. Or, the assistance of 2 or more helpers is required for the patient to complete the activity. If activity was not attempted, code reason: 7-Patient Refused. 9-Not Applicable-not attempted and the patient did not perform the activity before the current illness, exacerbation or injury. 10-Not Attempted due to Environmental Limitations-(lack of equipment, weather restraints, etc.). 88-Not Attempted due to Medical Conditions or Safety Concerns. Roll Left to Right (QC): 3 Sit to Lying (QC): 3 Sit to Stand (QC): 4 Chair/Mva-be-Tbgzj Xfer(QC): 4 Car Transfer (QC): 2 Gait Training Does the Patient Walk?: Yes Distance: 200'x2 Walk 10 feet (QC): 4 Walk 50 ft with 2 Turns(QC): 4 Walk 150 ft (QC): 4 Walking 10ft/uneven surface-QC: 4 Gait Persons Needed: 1 Gait Assistive Device: FWW Wheelchair Training Does the Pt Use a Wheelchair?: No Distance: 150 Wheel 50 ft with 2 turns (QC): 4 Wheel 150 ft (QC): 4 Type of Wheelchair: Manual Stair Training #of Steps: 0 1 Step (curb) (QC): 88 4 Steps (QC): 88 12 Steps (QC): 88 Balance Picking up an Object (QC): 88 ADL-Treatment Eating (QC): 6 Oral Hygiene (QC): 6 Bathing Location: L Arm, R Arm, L Upper Leg, R Upper Leg, R Lower Leg (includ ing foot), Chest, Abdomen, Buttocks, Perineal Area Shower/Bathe Self (QC): 3 Upper Body Dressing (QC): 5 Lower Body Dressing (QC): 4 On/Off Footwear (QC): 3 Toileting Hygiene (QC): 6 Toilet Transfer (QC): 6 Assessment/Plan Assessment and Plan Assess & Plan/Chief Complaint Assessment: Status post left hip fracture status post repair at [facility] Acute blood loss anemia requiring [address] 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 ABIGAIL on biPAP Cochlear implant GERD IBS RLS Plan: Inpatient rehab protocol Monitor hemoglobin Home meds 10/12/2020: Cardiology consult Monitor closely Pain control 10/13/2020: Pain control BiPAP at night Oral anticoagulation 10/14/2020: BiPAP at night Maintain Xarelto Monitor closely 10/15/2020: Low-grade fever we will monitor closely Labs normal today 10/16/2020: Supportive care Monitor for fever 10/17/2020: Improved status Supportive care Pain control 10/18/2020: Supportive care Anticoagulation BiPAP at night (1) Closed intertrochanteric fracture of left hip Status: Acute DUNG KEYS DO Oct 18, 2020 05:42
[2020-10-18] MEDS: PANTOPRAZOLE 20 MG TABLET (PROTONIX) PO SCH ×2 (06:28→17:10)
[2020-10-18] MEDS: DOCUSATE SODIUM 100 MG (COLACE) CAP PO SCH ×2 (07:20→20:58)
[2020-10-18] MEDS: RIVAROXABAN 20 MG TABLET (XARELTO) PO SCH (07:21)
[2020-10-18] MEDS: VENlafaxine XR 75 MG (EFFEXOR XR) CAP PO SCH (07:21)
[2020-10-18] MEDS: SENNA W/DOCUSATE (SENOKOT S) TABLET PO SCH ×2 (07:21→20:58)
[2020-10-18 07:52] VITALS: BP 119/65
[2020-10-18] MEDS: polyethylene glycoL POWDER 17 GM (MIRALAX) PACK PO SCH ×2 (08:04→19:27)
--- NOTE | 2020-10-18 09:15 | Occupational Ther Daily Note ---
OT Current Status-Daily Note Subjective Pt. alert in recliner, nsg. in room had to call dietary for breakfast. Pt. slept well, agrees to therapy. Mental Status/Objective Patient Orientation: Person, Place, Time, Situation ADL-Treatment Pt. said [place] LE was tired already, but agrees to shower. Pt. ambu. SBA using FWW from recliner to toilet. Pt. SBA using grabbars to stand and doff brief with R hand. Pt. required aid in cleansing after BM, Pt refused to clean self. Pt SBA to shower, using grab bars to supervisor incising shower then sit on shower bench. Pt. [facility] gown/bra using B UE, brief/footwear using hospital clinic assistant all independently. Pt. performed set up cleansing with less verbal cues. Pt. dried body expect L calf to foot. Pt performed UB donning by self after set up. Pt. performed LB donning with 2 verbal cues to manipulate clothing via hospital clinic assistant. Pt. ambu. to recliner to don footwear using equipment. Pt. set up with compression stockings on sock aid, required Min A physical and verbal cues. Pt. donned slip-on footwear Min A. Pt. left in room recliner, call light/phone in reach. All needs met in room. Therapy Code Descriptions/Definitions Functional [place] Measure: 0=Not Assessed/NA 4=Minimal Assistance 1=Total Assistance 5=Supervision or Setup 2=Maximal Assistance 6=Modified [place] 3=Moderate Assistance 7=Complete IndependenceSCALE: Activities may be completed with or without assistive devices. 8-Hvraoypkbg-evscpne completes the activity by him/herself with no assistance from a helper. 5-Set-up or Clean-up Assistance-helper sets up or cleans up; patient completes activity. [place] assists only prior to or following the activity. 4-Supervision or Touching Assistance-helper provides verbal cues and/or touching/steadying and/or contact guard assistance as patient completes activity. Assistance may be provided throughout the activity or intermittently. 3-Partial/Moderate Assistance-helper does LESS THAN HALF the effort. [place] lifts, holds or supports trunk or limbs, but provides less than half the effort. 2-Substantial/Maximal Assistance-helper does MORE THAN HALF the effort. [place] lifts or holds trunk or limbs and provides more than half the effort. 2-Jvzikyspm-zxdwka does ALL the effort. Patient does none of the effort to complete the activity. Or, the assistance of 2 or more helpers is required for the patient to complete the activity. If activity was not attempted, code reason: 7-Patient Refused. 9-Not Applicable-not attempted and the patient did not perform the activity before the current illness, exacerbation or injury. 10-Not Attempted due to Environmental Limitations-(lack of equipment, weather restraints, etc.). 88-Not Attempted due to Medical Conditions or Safety Concerns. Eating (QC): 6 Bathing Location: L Arm, R Arm, L Upper Leg, R Upper Leg, R Lower Leg (in cluding foot), Chest, Abdomen, Buttocks, Perineal Area Shower/Bathe Self (QC): 4 Upper Body Dressing (QC): 5 Lower Body Dressing (QC): 3 On/Off Footwear: 3 Toileting Hygiene (QC): 3 Toilet Transfer (QC): 6 Education OT Patient Education: Modified ADL techniques Teaching Recipient: Patient Teaching Methods: Demonstration, Discussion Response to Teaching: Verbalize Understanding, Return Demonstration, Reinf orcement Needed OT Short Term Goals Short Term Goals Time Frame: Oct 18, 2020 Eatin Oral hygiene: 5 Toileting hygiene: 4 Shower/bathe self: 4 Upper body dressin Lower body dressin Putting on/taking off footwear: 4 OT Alf Goals Varnishing Unit Operator Goals Time Frame: Oct 22, 2020 Eating (QC): 6 Oral Hygiene (QC): 6 Toileting Hygiene (QC): 6 Shower/Bathe Self (QC): 5 Upper Body Dressing (QC): 6 Lower Body Dressing (QC): 6 On/Off Footwear (QC): 6 1=Demonstrate adherence to instructed precautions during ADL tasks. 2=Patient will verbalize/demonstrate understanding of assistive devices/modifications for ADL. 3=Patient will improve strength/tolerance for activity to enable patient to perform ADL's. OT Education/Plan Problem List/Assessment Assessment: Decreased Activ Tolerance, Decreased Safety Aware, Decreased UE Strength, Impaired Cognition, Impaired Coordination, Impaired Self-Care Skills Discharge Recommendations Plan/Recommendations: Continue POC Treatment Plan/Plan of Care Patient would benefit from OT for education, treatment and training to promote independence in ADL's, mobility, safety and/or upper extremity function for ADL's. Plan of Care: ADL Retraining, Functional Mobility, Group Exercise/Act as Ind, UE Funct Exercise/Act Treatment Duration: Oct 22, 2020 Frequency: At least 5 of 7 days/Wk (IRF) Estimated Hrs Per Day: 1.5 hours per day Agreement: Yes Rehab Potential: Good Time/GCodes Start Time: 07:30 Stop Time: 09:00 Total Time Billed (hr/min): 90 Billed Treatment Time 1 visit- ADL 6 (90 min) KEITH GRANADOS Oct 18, 2020 09:15
--- NOTE | 2020-10-18 10:34 | Progress Note - Cardiology ---
Cardiology SOAP Progress Note Subjective: Gen malaise and weakness No cp or palp or syncope No shortness of breath at rest No n/v/d Objective: I&O/Vital Signs 10/18/20 10/18/20 07:52 09:05 Temp 36.7 Pulse 90 Resp 18 B/P (MAP) 119/65 (83) Pulse Ox 94 O2 Delivery Room Air Room Air Weight (Pounds): 174 Weight (Ounces): 12.8 Weight (Calculated Kilograms): 79.678181 Constitutional: AAO x 3, well-developed, well-nourished Respiratory: No accessory muscle use; other (fair to good bilateral air entry, diminished at the bases) Cardiovascular: regular rate-rhythm, S1 and S2, systolic murmur (soft ASHLEY at the cardiac base) Gastrointestional: No tender; soft; No guarding, No rebound; audible bowel sounds Extremities: No clubbing, No cyanosis, No significant edema Neurologic/Psychiatric: alert, other (appears to be able to move all limbs equally; appears to have poor memory; appears to have mild L-sided weakness) Skin: No rash on exposed areas, No ulcerations on exposed areas A/P: Assessment: Hospitalization to inpatient rehab (Dr Mcintosh) on 10/11/20 following L hip fracture repair at [facility] - post-op anemia is being managed by Dr Mcintosh H/o aortic stenosis -S/P TAVR by Dr. Chang at [facility] June 2020 - subsquent CVA requiring transfer to [facility] neurology for thromboembolectomy by Dr. Ornelas (neuro-surgery) and Dr. De Santiago (neurologist) - per daughters report (records not available) - Echocardiogram of 08-01-20 post TAVR - LVEF 50-55%; mild MR; bioprosthetic aortic valve with peak gradient 11 and mean gradient 7 mmHg. Trivial AoR with very mild stenosis; can not exclude small PFO H/o CVA post TAVR in June 2020 -treated with R MCA thromboembolectomy at [place], with improvement but not complete resolution of L-sided weakness and R-sided gaze preference Right superficial femoral artery pseudoaneursym after cardiac cath of Dec 27, 2019, treated with thrombin injection by Dr. 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
--- NOTE | 2020-10-18 11:01 | Physical Therapy Daily Note ---
PT Daily Note-Current Subjective Pt in recliner upon arrival and agrees to tx. Pt states pain 7/10 and request pain medication before ex. RN notified and administers medication prior to leaving pt room. Pain Numeric Pain Scale: 7 Location: Left Location Body Site: Thigh Mental Status Patient Orientation: Person, Confused, Place Transfers SCALE: Activities may be completed with or without assistive devices. 2-Eijgwxwvyq-ulbhavh completes the activity by him/herself with no assistance from a helper. 5-Set-up or Clean-up Assistance-helper sets up or cleans up; patient completes activity. [place] assists only prior to or following the activity. 4-Supervision or Touching Assistance-helper provides verbal cues and/or touching/steadying and/or contact guard assistance as patient completes activity. Assistance may be provided throughout the activity or intermittently. 3-Partial/Moderate Assistance-helper does LESS THAN HALF the effort. [place] lifts, holds or supports trunk or limbs, but provides less than half the effort. 2-Substantial/Maximal Assistance-helper does MORE THAN HALF the effort. [place] lifts or holds trunk or limbs and provides more than half the effort. 9-Nswftbpww-kuxkpe does ALL the effort. Patient does none of the effort to complete the activity. Or, the assistance of 2 or more helpers is required for the patient to complete the activity. If activity was not attempted, code reason: 7-Patient Refused. 9-Not Applicable-not attempted and the patient did not perform the activity before the current illness, exacerbation or injury. 10-Not Attempted due to Environmental Limitations-(lack of equipment, weather restraints, etc.). 88-Not Attempted due to Medical Conditions or Safety Concerns. Sit to Lying (QC): 4 Lying to Sitting/Side of Bed(Q: 4 Sit to Stand (QC): 3 Pt able to sit to supine and back to EOB with VC and TC on placement and sequencing. Pt sit to stand Min/ModA dependent on height of chair and pt fatigue. Weight Bearing Left Lower Extremity: Left Weight Bearing/Tolerated Gait Training Does the Patient Walk?: Yes Distance: 200' x2 Walk 10 feet (QC): 4 Walk 50 ft with 2 Turns(QC): 4 Walk 150 ft (QC): 4 Gait Persons Needed: 1 Gait Assistive Device: FWW Pt required CGa for amb. Pt has shuffling, antalgic gait. Pt WB through UE. Exercises Standing: Retro gait, Unilateral stance, Weight shifts Standing Reps: 5 Treatments Pt transfers from recliner to bed and performs bed mobility. RN enters room to administer medication, then pt amb to BR. Pt able to doff/don pants SBA, but requires VC. Pt had brief on, but pt pants weren't. MACHINE WIPER had to remind pt to pull up pants. Pt amb around IRU and to therapy gym. Pt held dynamic standing w/o support from UE while doing ring toss activity. Pt repeatedly grabbed FWW during activity and needed reminders to attempt to do activity unsupported. Pt had no LOB during activity when unsupported. Pt took seated RB then attempted SLS, pt unable to comprehend SLS after demonstration and discussion. Pt held static standing balance 30 secs unsupported from UE, then began weight shifts 10 secs. Pt returns to room and sits EOB. Pt able to sit to supine CGA. Pt left in bed with all needs met, call light in hand. Assessment Current Status: Good Progress Pt easily fatigued and required multiple VC to keep focused on tasks. PT Short Term Goals Short Term Goals Time Frame: Oct 19, 2020 Roll Left & Right: 4 Sit to lyin Lying to sitting on side of be: 4 Sit to stand: 4 Chair/jtp-jz-meoqd transfer: 4 Toilet transfer: 4 Car transfer: 4 Walk 10 feet: 5 Walk 50 feet with two turns: 5 Walk 150 feet: 5 Walking 10ft on uneven surface: 5 1 step (curb): 4 4 steps: 4 12 steps: 4 Picking up objects: 3 Does pt use a wc or scooter: No Wheel 50ft w/2 turns: 6 Wheel 150 feet: 6 Type: Manual PT Longterm Goals Clinical Biostatistician Goals PT Clinical Biostatistician Goals Time Frame: Nov 08, 2020 Roll Left & Right (QC): 6 Sit to Lying (QC): 6 Lying-Sitting on Side/Bed(QC): 6 Sit to Stand (QC): 6 Chair/[place] Xfer(QC): 6 Toilet Transfer (QC): 6 Car Transfer (QC): 6 Does the Patient Walk: Yes Walk 10 feet (QC): 6 Walk 50ft with 2 Turns (QC): 6 Walk 150 ft (QC): 6 Walking 10ft on Uneven Surface: 6 1 Step (curb) (QC): 6 4 Steps (QC): 6 12 Steps (QC): 6 Picking up an Object (QC): 6 Does the Pt use WC or Scooter?: No Wheel 50 feet with 2 turns (QC: 6 Type: Manual Wheel 150 feet: 6 Type: Manual PT Plan Problem List Problem List: Activity Tolerance, Functional Strength, Safety Treatment/Plan Treatment Plan: Continue Plan of Care Treatment Plan: Bed Mobility, Education, Functional Activity Priya, Functional Strength, Group Therapy, Gait, Safety, Therapeutic Exercise, Transfers Treatment Duration: Dec 14, 2020 Frequency: At least 5 of 7 days/Wk (IRF) Estimated Hrs Per Day: 1.5 hours per day Patient and/or Family Agrees t: Yes Safety Risks/Education Patient Education: Gait Training, Correct Positioning, Safety Issues Teaching Recipient: Patient Teaching Methods: Demonstration, Discussion Response to Teaching: Verbalize Understanding, Return Demonstration, Reinforcement Needed Time/GCodes Time In: 1000 Time Out: 1100 Total Billed Treatment Time: 60 Total Billed Treatment 1, GT, NM x2, ANGEL PAGE PTA Oct 18, 2020 11:01
--- NOTE | 2020-10-18 13:50 | Physical Therapy Daily Note ---
PT Daily Note-Current Subjective Pt in recliner upon arrival and agrees to tx. Pt states no pain in leg, but shows signs of pain throughout tx. Mental Status Patient Orientation: Person, Confused, Place Transfers SCALE: Activities may be completed with or without assistive devices. 6-Djomnfrtzq-rwnwpxb completes the activity by him/herself with no assistance from a helper. 5-Set-up or Clean-up Assistance-helper sets up or cleans up; patient completes activity. [place] assists only prior to or following the activity. 4-Supervision or Touching Assistance-helper provides verbal cues and/or touching/steadying and/or contact guard assistance as patient completes activity. Assistance may be provided throughout the activity or intermittently. 3-Partial/Moderate Assistance-helper does LESS THAN HALF the effort. [place] lifts, holds or supports trunk or limbs, but provides less than half the effort. 2-Substantial/Maximal Assistance-helper does MORE THAN HALF the effort. [place] lifts or holds trunk or limbs and provides more than half the effort. 8-Xpgvrniqa-wgnxrg does ALL the effort. Patient does none of the effort to complete the activity. Or, the assistance of 2 or more helpers is required for the patient to complete the activity. If activity was not attempted, code reason: 7-Patient Refused. 9-Not Applicable-not attempted and the patient did not perform the activity before the current illness, exacerbation or injury. 10-Not Attempted due to Environmental Limitations-(lack of equipment, weather restraints, etc.). 88-Not Attempted due to Medical Conditions or Safety Concerns. Sit to Lying (QC): 4 Lying to Sitting/Side of Bed(Q: 4 Sit to Stand (QC): 3 Weight Bearing Left Lower Extremity: Left Weight Bearing/Tolerated Gait Training Does the Patient Walk?: Yes Distance: 200', 100' Walk 10 feet (QC): 3 Walk 50 ft with 2 Turns(QC): 3 Walk 150 ft (QC): 3 Gait Persons Needed: 1 Gait Assistive Device: FWW Pt has antalgic gait, leaning to L side. Pt had LOB during amb, TELEGRAPH PLANT MAINTAINER helped pt correct. Exercises NuStep Minutes: 10 NuStep Workload: 4 Treatments Pt amb from room to gym. Once in gym, pt required Max VC to sit on chair of NuStep. Pt stopped amb. 2' from NuStep and asked what we were doing, TELEGRAPH PLANT MAINTAINER explai manuel she was going to use NuStep for strengthening and stretching. Pt began to amb toward NuStep and had LOB. Once corrected, pt stood in gym and asked what she was supposed to do, TELEGRAPH PLANT MAINTAINER explained she was going to use the NuStep. Pt gets to NuStep and starts turning, stop, and asked where she needed to go. TELEGRAPH PLANT MAINTAINER told pt she should continue to turn so she can sit on the chair of the NuStep. Pt pointed to chair across the gym and asked if that's where she needed to go. TELEGRAPH PLANT MAINTAINER told pt the NuStep was beside her and pointed out where the seat was. Pt turned and sat on chair. Pt used NuStep and returned to room. Pt requested to use BR. Pt doffed/donned pants CGA. When pt stood up, pt stated she didn't have any toilet paper, TELEGRAPH PLANT MAINTAINER showed pt it was in the cover next to toilet. Pt wiped and returned to bed. Pt CGA to get into bed, and was left with all needs met, call light in hand. Assessment Current Status: Good Progress Pt seems more confused this pm. Pt limited by pain and weakness. PT Short Term Goals Short Term Goals Time Frame: Oct 19, 2020 Roll Left & Right: 4 Sit to lyin Lying to sitting on side of be: 4 Sit to stand: 4 Chair/wgq-ra-objrc transfer: 4 Toilet transfer: 4 Car transfer: 4 Walk 10 feet: 5 Walk 50 feet with two turns: 5 Walk 150 feet: 5 Walking 10ft on uneven surface: 5 1 step (curb): 4 4 steps: 4 12 steps: 4 Picking up objects: 3 Does pt use a wc or scooter: No Wheel 50ft w/2 turns: 6 Wheel 150 feet: 6 Type: Manual PT Chcf Goals Pipe Cleaning Machine Operator Goals PT Chcf Goals Time Frame: Nov 08, 2020 Roll Left & Right (QC): 6 Sit to Lying (QC): 6 Lying-Sitting on Side/Bed(QC): 6 Sit to Stand (QC): 6 Chair/Uil-au-Dfcqr Xfer(QC): 6 Toilet Transfer (QC): 6 Car Transfer (QC): 6 Does the Patient Walk: Yes Walk 10 feet (QC): 6 Walk 50ft with 2 Turns (QC): 6 Walk 150 ft (QC): 6 Walking 10ft on Uneven Surface: 6 1 Step (curb) (QC): 6 4 Steps (QC): 6 12 Steps (QC): 6 Picking up an Object (QC): 6 Does the Pt use WC or Scooter?: No Wheel 50 feet with 2 turns (QC: 6 Type: Manual Wheel 150 feet: 6 Type: Manual PT Plan Problem List Problem List: Activity Tolerance, Functional Strength, Safety, Gait, Bed Mobility Treatment/Plan Treatment Plan: Continue Plan of Care Treatment Plan: Bed Mobility, Education, Functional Activity Priya, Functional Strength, Group Therapy, Gait, Safety, Therapeutic Exercise, Transfers Treatment Duration: Dec 14, 2020 Frequency: At least 5 of 7 days/Wk (IRF) Estimated Hrs Per Day: 1.5 hours per day Patient and/or Family Agrees t: Yes Safety Risks/Education Patient Education: Gait Training, Correct Positioning, Safety Issues Teaching Recipient: Patient Teaching Methods: Demonstration, Discussion Response to Teaching: Verbalize Understanding, Return Demonstration, Reinforcement Needed Time/GCodes Time In: 1300 Time Out: 1330 Total Billed Treatment Time: 30 Total Billed Treatment 1, Ex, ANGEL PAGE PTA Oct 18, 2020 13:50
--- NOTE | 2020-10-18 16:07 | CONSULTATION REPORT ---
DATE OF SERVICE: 10/18/2020 ATTENDING PHYSICIAN: Dr. Mcintosh. SUMMARY: An 85-year-old white lady who was found to have nocturnal enuresis. She is dry during the day, has no trouble voiding. IMPRESSION: Nocturnal enuresis. PLAN: 1. Bladder scan postvoid residual. 2. Start her on Tofranil 25 mg at bedtime and manage accordingly. Job ID: [id number] DocumentID: [id number] Dictated Date: 10/18/2020 13:36:21 Bushing And Broach Operator Date: 10/18/2020 16:06:42 Dictated By: BC WEATHERS MD
[2020-10-18 20:00] VITALS: BP 127/58
[2020-10-18] MEDS: IMIPRAMINE 25 MG (TOFRANIL) TAB PO SCH (20:57)
[2020-10-18] MEDS: MELATONIN 3 MG TABLET PO SCH (20:57)
[2020-10-18] MEDS: ACETAMINOPHEN 325 MG TABLET PO PRN (20:57)
[2020-10-19] MEDS: PANTOPRAZOLE 20 MG TABLET (PROTONIX) PO SCH ×2 (06:28→16:56)
[2020-10-19 07:54] VITALS: BP 124/61
[2020-10-19] MEDS: SENNA W/DOCUSATE (SENOKOT S) TABLET PO SCH ×2 (08:13→20:26)
[2020-10-19] MEDS: polyethylene glycoL POWDER 17 GM (MIRALAX) PACK PO SCH ×2 (08:13→20:25)
[2020-10-19] MEDS: VENlafaxine XR 75 MG (EFFEXOR XR) CAP PO SCH (08:47)
[2020-10-19] MEDS: RIVAROXABAN 20 MG TABLET (XARELTO) PO SCH (08:48)
[2020-10-19] MEDS: DOCUSATE SODIUM 100 MG (COLACE) CAP PO SCH ×2 (08:48→20:25)
--- NOTE | 2020-10-19 09:22 | Occupational Ther Daily Note ---
OT Current Status-Daily Note Subjective Pr. alert in recliner. No c/o of pain, Pt. agrees to therapy. Mental Status/Objective Patient Orientation: Person, Place, Time, Situation ADL-Treatment Pt. ambulated using FWW SBA to toilet, using grab bars to push brief off hips. Pt had one LOB and was able to right self. Pt. able to cleanse after BM. Pt required use of toilet for BM 2x's during session. Pt. ambu. to sink to wash hands and perform oral care standing at sink, and holding with L hand for support. Pt.ambulated to w/c to [facility] with one verbal cue to untie the back. Pt. donned UBD and LBD(used gathering machine setter to don) set up. Pt. doffed B socks with gathering machine setter. Pt. attempted to don L sock with hand and bending over, but too painful. Pt. donned both socks with sock aid. Pt. ambu. SBA to recliner in room so nursing could give morning meds. Pt. left in chair, call light/phone in reach. All needs met in room. Therapy Code Descriptions/Definitions Functional [place] Measure: 0=Not Assessed/NA 4=Minimal Assistance 1=Total Assistance 5=Supervision or Setup 2=Maximal Assistance 6=Modified [place] 3=Moderate Assistance 7=Complete IndependenceSCALE: Activities may be completed with or without assistive devices. 3-Selpifmdbc-nkvfehz completes the activity by him/herself with no assistance from a helper. 5-Set-up or Clean-up Assistance-helper sets up or cleans up; patient completes activity. [place] assists only prior to or following the activity. 4-Supervision or Touching Assistance-helper provides verbal cues and/or touching/steadying and/or contact guard assistance as patient completes activity. Assistance may be provided throughout the activity or intermittently. 3-Partial/Moderate Assistance-helper does LESS THAN HALF the effort. [place] lifts, holds or supports trunk or limbs, but provides less than half the effort. 2-Substantial/Maximal Assistance-helper does MORE THAN HALF the effort. [place] lifts or holds trunk or limbs and provides more than half the effort. 3-Vzbmyriup-isiiit does ALL the effort. Patient does none of the effort to complete the activity. Or, the assistance of 2 or more helpers is required for the patient to complete the activity. If activity was not attempted, code reason: 7-Patient Refused. 9-Not Applicable-not attempted and the patient did not perform the activity before the current illness, exacerbation or injury. 10-Not Attempted due to Environmental Limitations-(lack of equipment, weather restraints, etc.). 88-Not Attempted due to Medical Conditions or Safety Concerns. Eating (QC): 6 Oral Hygiene (QC): 6 Upper Body Dressing (QC): 5 Lower Body Dressing (QC): 5 On/Off Footwear: 5 Toileting Hygiene (QC): 4 Toilet Transfer (QC): 4 OT Short Term Goals Short Term Goals Time Frame: Oct 18, 2020 Eatin Oral hygiene: 5 Toileting hygiene: 4 Shower/bathe self: 4 Upper body dressin Lower body dressin Putting on/taking off footwear: 4 OT Assisted Goals [employer] [place] Goals Time Frame: Oct 22, 2020 Eating (QC): 6 Oral Hygiene (QC): 6 Toileting Hygiene (QC): 6 Shower/Bathe Self (QC): 5 Upper Body Dressing (QC): 6 Lower Body Dressing (QC): 6 On/Off Footwear (QC): 6 1=Demonstrate adherence to instructed precautions during ADL tasks. 2=Patient will verbalize/demonstrate understanding of assistive devices/modifications for ADL. 3=Patient will improve strength/tolerance for activity to enable patient to perform ADL's. OT Education/Plan Problem List/Assessment Assessment: Decreased Activ Tolerance, Decreased Safety Aware, Decreased UE Strength, Impaired Self-Care Skills Discharge Recommendations Plan/Recommendations: Continue POC Treatment Plan/Plan of Care Patient would benefit from OT for education, treatment and training to promote independence in ADL's, mobility, safety and/or upper extremity function for ADL's. Plan of Care: ADL Retraining, Functional Mobility, Group Exercise/Act as Ind, UE Funct Exercise/Act Treatment Duration: Oct 22, 2020 Frequency: At least 5 of 7 days/Wk (IRF) Estimated Hrs Per Day: 1.5 hours per day Agreement: Yes Rehab Potential: Good Time/GCodes Start Time: 07:30 Stop Time: 09:00 Total Time Billed (hr/min): 90 Billed Treatment Time 1 visit- ADL 6 (90 min) KEITH GRANADOS Oct 19, 2020 09:22
--- NOTE | 2020-10-19 10:47 | PM&R Progress Note ---
Subjective HPI/CC On Admission Date Seen by Provider: Oct 19, 2020 Time Seen by Provider: 11:00 Subjective/Events-last exam 10/19/2020: Patient improved Feels discouraged Tried to reassure her No major changes 10/18/2020: Patient doing pretty well Wonders how she will get back to [facility] and I told her social psychologist would arrange Bowels moved yesterday Discharge plan for 10/24/2020 10/17/2020: Pt doing really well Having some formed bowel movement so will initiate fleets enema to completely evacuate Weaning BiPAP at night Will return to [facility] when she is done with inpatient rehab 10/16/2020: Pt doing pretty well Working with therapy Had an isolated fever yesterday of 100.3 No source 10/15/2020: Pt in a really good mood Bowels moved yesterday Hgb 8.7 No major issues at this current time No falls 10/14/2020: Supportive care Patient denies pain No falls Tylenol given for headache BiPAP at night 10/13/2020: Patient doing really well Use BiPAP last night Bowels moved yesterday Pain is well controlled 10/12/2020: Pt having a headache, Tylenol give RT will set up her BiPAP Hgb 9.[address] [address] Wade to evaluate heart that they were concerned about during her hip fracture repair Review of Systems General: Fatigue, Malaise Musculoskeletal: leg pain Objective Exam Vital Signs Vital Signs Date Time Temp Pulse Resp B/P (MAP) Pulse Ox O2 Delivery O2 Flow Rate FiO2 10/19/20 21:00 Room Air 10/19/20 19:48 36.8 86 16 128/71 (90) 92 Capillary Refill : General Appearance: No Apparent Distress, WD/WN, Chronically ill HEENT: PERRL/EOMI, Normal ENT Inspection, Pharynx Normal Neck: Full Range of Motion, Normal Inspection, Non Tender, Supple, Carotid Bruit Respiratory: Chest Non Tender, Lungs Clear, Normal Breath Sounds, No Accessory Muscle Use, No Respiratory Distress Cardiovascular: Regular Rate, Rhythm, No Edema, No Gallop, No JVD, No Murmur, Normal Peripheral Pulses Gastrointestinal: Normal Bowel Sounds, No Organomegaly, No Pulsatile Mass, Non Tender, Soft Back: Normal Inspection, No CVA Tenderness, No Vertebral Tenderness Extremity: Normal Capillary Refill, Normal Inspection, Normal Range of Motion (Except left leg), Non Tender, No Calf Tenderness, No Pedal Edema Neurologic/Psychiatric: Alert, Oriented x3, No Motor/Sensory Deficits, Normal Mood/Affect, net sorter II-XII Norm as Tested, Abnormal Gait, Motor Weakness (Left leg) Skin: Normal Color, Warm/Dry Lymphatic: No Adenopathy Results/Procedures Lab Patient resulted labs reviewed. FIM Transfers Therapy Code Descriptions/Definitions Functional [place] Measure: 0=Not Assessed/NA 4=Minimal Assistance 1=Total Assistance 5=Supervision or Setup 2=Maximal Assistance 6=Modified [place] 3=Moderate Assistance 7=Complete IndependenceSCALE: Activities may be completed with or without assistive devices. 6-Lfhrjsassa-cynnzkv completes the activity by him/herself with no assistance from a helper. 5-Set-up or Clean-up Assistance-helper sets up or cleans up; patient completes activity. [place] assists only prior to or following the activity. 4-Supervision or Touching Assistance-helper provides verbal cues and/or touching/steadying and/or contact guard assistance as patient completes activity. Assistance may be provided throughout the activity or intermittently. 3-Partial/Moderate Assistance-helper does LESS THAN HALF the effort. [place] lifts, holds or supports trunk or limbs, but provides less than half the effort. 2-Substantial/Maximal Assistance-helper does MORE THAN HALF the effort. [place] lifts or holds trunk or limbs and provides more than half the effort. 9-Lqrwjomde-uttnla does ALL the effort. Patient does none of the effort to complete the activity. Or, the assistance of 2 or more helpers is required for the patient to complete the activity. If activity was not attempted, code reason: 7-Patient Refused. 9-Not Applicable-not attempted and the patient did not perform the activity before the current illness, exacerbation or injury. 10-Not Attempted due to Environmental Limitations-(lack of equipment, weather restraints, etc.). 88-Not Attempted due to Medical Conditions or Safety Concerns. Roll Left to Right (QC): 3 Sit to Lying (QC): 4 Sit to Stand (QC): 3 Chair/Mmu-yk-Gfspj Xfer(QC): 4 Car Transfer (QC): 2 Gait Training Does the Patient Walk?: Yes Distance: 200', 100' Walk 10 feet (QC): 3 Walk 50 ft with 2 Turns(QC): 3 Walk 150 ft (QC): 3 Walking 10ft/uneven surface-QC: 4 Gait Persons Needed: 1 Gait Assistive Device: FWW Wheelchair Training Does the Pt Use a Wheelchair?: No Distance: 150 Wheel 50 ft with 2 turns (QC): 4 Wheel 150 ft (QC): 4 Type of Wheelchair: Manual Stair Training #of Steps: 0 1 Step (curb) (QC): 88 4 Steps (QC): 88 12 Steps (QC): 88 Balance Picking up an Object (QC): 88 ADL-Treatment Eating (QC): 6 Oral Hygiene (QC): 6 Bathing Location: L Arm, R Arm, L Upper Leg, R Upper Leg, R Lower Leg (including foot), Chest, Abdomen, Buttocks, Perineal Area Shower/Bathe Self (QC): 4 Upper Body Dressing (QC): 5 Lower Body Dressing (QC): 5 On/Off Footwear (QC): 5 Toileting Hygiene (QC): 4 Toilet Transfer (QC): 4 Assessment/Plan Assessment and Plan Assess & Plan/Chief Complaint Assessment: Status post left hip fracture status post repair at [facility] Acute blood loss anemia requiring 2 units of blood at [facility] 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 History of JENELLE Temple 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 ABIGAIL on biPAP Cochlear implant GERD IBS RLS Plan: Inpatient rehab protocol Monitor hemoglobin Home meds 10/12/2020: Cardiology consult Monitor closely Pain control 10/13/2020: Pain control BiPAP at night Oral anticoagulation 10/14/2020: BiPAP at night Maintain Xarelto Monitor closely 10/15/2020: Low-grade fever we will monitor closely Labs normal today 10/16/2020: Supportive care Monitor for fever 10/17/2020: Improved status Supportive care Pain control 10/18/2020: Supportive care Anticoagulation BiPAP at night 10/19/2020: Supportive care Encouraged her progress (1) Closed intertrochanteric fracture of left hip Status: Acute DUNG KEYS DO Oct 19, 2020 10:47
--- NOTE | 2020-10-19 11:00 | Physical Therapy Daily Note ---
PT Daily Note-Current Subjective Pt in recliner upon arrival and agrees to tx. Post tx pt states pain in L LE 8/10. Pain Numeric Pain Scale: 8 Location: Left Pain Description: Ache Mental Status Patient Orientation: Person, Confused, Place Transfers SCALE: Activities may be completed with or without assistive devices. 0-Vftiilyfvu-edqxzgb completes the activity by him/herself with no assistance from a helper. 5-Set-up or Clean-up Assistance-helper sets up or cleans up; patient completes activity. [place] assists only prior to or following the activity. 4-Supervision or Touching Assistance-helper provides verbal cues and/or touching/steadying and/or contact guard assistance as patient completes activity. Assistance may be provided throughout the activity or intermittently. 3-Partial/Moderate Assistance-helper does LESS THAN HALF the effort. [place] lifts, holds or supports trunk or limbs, but provides less than half the effort. 2-Substantial/Maximal Assistance-helper does MORE THAN HALF the effort. [place] lifts or holds trunk or limbs and provides more than half the effort. 0-[place]-yyazvb does ALL the effort. Patient does none of the effort to complete the activity. Or, the assistance of 2 or more helpers is required for the patient to complete the activity. If activity was not attempted, code reason: 7-Patient Refused. 9-Not Applicable-not attempted and the patient did not perform the activity before the current illness, exacerbation or injury. 10-Not Attempted due to Environmental Limitations-(lack of equipment, weather restraints, etc.). 88-Not Attempted due to Medical Conditions or Safety Concerns. Sit to Lying (QC): 4 Lying to Sitting/Side of Bed(Q: 4 Sit to Stand (QC): 4 Chair/Ysl-sy-Mxzei Xfer(QC): 4 Pt transfers from recliner to bed, and performs bed mobility. Pt requires VC for placement and sequencing. Weight Bearing Left Lower Extremity: Left Weight Bearing/Tolerated Gait Training Does the Patient Walk?: Yes Distance: 350' Walk 10 feet (QC): 4 Walk 50 ft with 2 Turns(QC): 4 Walk 150 ft (QC): 4 Gait Persons Needed: 1 Gait Assistive Device: FWW Pt amb in room and to BR. Pt amb on IRU w/ FWW and CGA. Pt requires VC to keep wide JOLYNN. Pt has tendency to WB through UE when in stance on L LE and push hip to L side. Neuromuscular Pt held static standing balance 30 secs, followed by weight shifts. Pt attempts SLS but unable to hold on either LE. Pt completes ring toss w/ 8 rings x2, standing unsupported from UE w/ no LOB and CGA. Treatments Pt transfers to bed from recliner and performs bed mobility. MASTER MECHANIC places 10 cones throughout pt bedroom and bathroom at various heights and has pt amb to reach them. Pt able to grab cones from floor and above head w/o any LOB. Pt request to use BR att, pt able to doff/don pants and wash hands SBA. Pt takes seated RB in recliner, then performs ring toss activity. Pt takes another RB then amb around IRU. Pt returns to recliner and was left with all needs met, call light in hand. Assessment Current Status: Good Progress Pt mobility, strength, and endurance improving. PT Short Term Goals Short Term Goals Time Frame: Oct 19, 2020 Roll Left & Right: 4 Sit to lyin Lying to sitting on side of be: 4 Sit to stand: 4 Chair/cmm-bf-uyofh transfer: 4 Toilet transfer: 4 Car transfer: 4 Walk 10 feet: 5 Walk 50 feet with two turns: 5 Walk 150 feet: 5 Walking 10ft on uneven surface: 5 1 step (curb): 4 4 steps: 4 12 steps: 4 Picking up objects: 3 Does pt use a wc or scooter: No Wheel 50ft w/2 turns: 6 Wheel 150 feet: 6 Type: Manual PT Sales Order Processor Goals Fdc Goals PT Sales Order Processor Goals Time Frame: Nov 08, 2020 Roll Left & Right (QC): 6 Sit to Lying (QC): 6 Lying-Sitting on Side/Bed(QC): 6 Sit to Stand (QC): 6 Chair/Gtw-rm-Ejmib Xfer(QC): 6 Toilet Transfer (QC): 6 Car Transfer (QC): 6 Does the Patient Walk: Yes Walk 10 feet (QC): 6 Walk 50ft with 2 Turns (QC): 6 Walk 150 ft (QC): 6 Walking 10ft on Uneven Surface: 6 1 Step (curb) (QC): 6 4 Steps (QC): 6 12 Steps (QC): 6 Picking up an Object (QC): 6 Does the Pt use WC or Scooter?: No Wheel 50 feet with 2 turns (QC: 6 Type: Manual Wheel 150 feet: 6 Type: Manual PT Plan Treatment/Plan Treatment Plan: Continue Plan of Care Treatment Plan: Bed Mobility, Education, Functional Activity Priya, Functional Strength, Group Therapy, Gait, Safety, Therapeutic Exercise, Transfers Treatment Duration: Dec 14, 2020 Frequency: At least 5 of 7 days/Wk (IRF) Estimated Hrs Per Day: 1.5 hours per day Patient and/or Family Agrees t: Yes Time/GCodes Time In: 1000 Time Out: 1100 Total Billed Treatment Time: 60 Total Billed Treatment 1, FA x2, NM, [facility] Oct 19, 2020 10:59
--- NOTE | 2020-10-19 13:35 | Physical Therapy Daily Note ---
PT Daily Note-Current Subjective Pt in recliner and agrees to tx. Pt states that lunch was good but not very much food. Post tx, pt states she wants to go back to recliner because she should be getting food soon. LUNCHEONETTE MANAGER asked pt if she ordered more food, and pt stated she asked somebody for some. Pt had no c/o pain throughout tx. Mental Status Patient Orientation: Person, Place, Situation Transfers SCALE: Activities may be completed with or without assistive devices. 8-Rrteesipko-padkxii completes the activity by him/herself with no assistance from a helper. 5-Set-up or Clean-up Assistance-helper sets up or cleans up; patient completes activity. [place] assists only prior to or following the activity. 4-Supervision or Touching Assistance-helper provides verbal cues and/or touching/steadying and/or contact guard assistance as patient completes activity. Assistance may be provided throughout the activity or intermittently. 3-Partial/Moderate Assistance-helper does LESS THAN HALF the effort. [place] lifts, holds or supports trunk or limbs, but provides less than half the effort. 2-Substantial/Maximal Assistance-helper does MORE THAN HALF the effort. [place] lifts or holds trunk or limbs and provides more than half the effort. 8-Ogegzcdch-bjsrya does ALL the effort. Patient does none of the effort to complete the activity. Or, the assistance of 2 or more helpers is required for the patient to complete the activity. If activity was not attempted, code reason: 7-Patient Refused. 9-Not Applicable-not attempted and the patient did not perform the activity before the current illness, exacerbation or injury. 10-Not Attempted due to Environmental Limitations-(lack of equipment, weather restraints, etc.). 88-Not Attempted due to Medical Conditions or Safety Concerns. Sit to Stand (QC): 5 Weight Bearing Left Lower Extremity: Left Weight Bearing/Tolerated Gait Training Does the Patient Walk?: Yes Distance: 200', 150' Walk 10 feet (QC): 4 Walk 50 ft with 2 Turns(QC): 4 Walk 150 ft (QC): 4 Gait Persons Needed: 1 Gait Assistive Device: FWW Exercises NuStep Minutes: 10 NuStep Workload: 4 Treatments Pt amb from recliner to bathroom, and able to doff/don pants and wash hands SBA. Pt amb on IRU to therapy gym. Pt completes NuStep 10 minutes, first 8 on WL of 4 and last 2 on WL of 5. Pt returned back to recliner and was left with all needs met, call light in hand. Assessment Current Status: Good Progress Pt endurance and strength improving PT Short Term Goals Short Term Goals Time Frame: Oct 19, 2020 Roll Left & Right: 4 Sit to lyin Lying to sitting on side of be: 4 Sit to stand: 4 Chair/uxa-az-xaxjp transfer: 4 Toilet transfer: 4 Car transfer: 4 Walk 10 feet: 5 Walk 50 feet with two turns: 5 Walk 150 feet: 5 Walking 10ft on uneven surface: 5 1 step (curb): 4 4 steps: 4 12 steps: 4 Picking up objects: 3 Does pt use a wc or scooter: No Wheel 50ft w/2 turns: 6 Wheel 150 feet: 6 Type: Manual PT Custodial Goals Custodial Goals PT Herbicide Sprayer Goals Time Frame: Nov 08, 2020 Roll Left & Right (QC): 6 Sit to Lying (QC): 6 Lying-Sitting on Side/Bed(QC): 6 Sit to Stand (QC): 6 Chair/Pmc-ok-Axydk Xfer(QC): 6 Toilet Transfer (QC): 6 Car Transfer (QC): 6 Does the Patient Walk: Yes Walk 10 feet (QC): 6 Walk 50ft with 2 Turns (QC): 6 Walk 150 ft (QC): 6 Walking 10ft on Uneven Surface: 6 1 Step (curb) (QC): 6 4 Steps (QC): 6 12 Steps (QC): 6 Picking up an Object (QC): 6 Does the Pt use WC or Scooter?: No Wheel 50 feet with 2 turns (QC: 6 Type: Manual Wheel 150 feet: 6 Type: Manual PT Plan Treatment/Plan Treatment Plan: Continue Plan of Care Treatment Plan: Bed Mobility, Education, Functional Activity Priya, Functional Strength, Group Therapy, Gait, Safety, Therapeutic Exercise, Transfers Treatment Duration: Dec 14, 2020 Frequency: At least 5 of 7 days/Wk (IRF) Estimated Hrs Per Day: 1.5 hours per day Patient and/or Family Agrees t: Yes Time/GCodes Time In: 1300 Time Out: 1330 Total Billed Treatment Time: 30 Total Billed Treatment 1, GT, Ex POPEYE,ANGEL LUNCHEONETTE MANAGER Oct 19, 2020 13:35
[2020-10-19 19:48] VITALS: BP 128/71
[2020-10-19] MEDS: MELATONIN 3 MG TABLET PO SCH (20:24)
[2020-10-19] MEDS: IMIPRAMINE 25 MG (TOFRANIL) TAB PO SCH (20:24)
[2020-10-20] MEDS: ACETAMINOPHEN 325 MG TABLET PO PRN ×2 (04:17→21:15)
[2020-10-20] MEDS: PANTOPRAZOLE 20 MG TABLET (PROTONIX) PO SCH ×2 (06:23→16:44)
--- NOTE | 2020-10-20 07:45 | PM&R Progress Note ---
Subjective HPI/CC On Admission Date Seen by Provider: Oct 20, 2020 Time Seen by Provider: 12:00 Subjective/Events-last exam 10/20/20: Patient is a bit confused today Apathy noted Tried to reassure and help motivate her DC Thursday10/19/2020: Patient improved Feels discouraged Tried to reassure her No major changes 10/18/2020: Patient doing pretty well Wonders how she will get back to [place] and I told her social service agency director would arrange Bowels moved yesterday Discharge plan for 10/24/2020 10/17/2020: Pt doing really well Having some formed bowel movement so will initiate fleets enema to completely evacuate Weaning BiPAP at night Will return to [place] when she is done with inpatient rehab 10/16/2020: Pt doing pretty well Working with therapy Had an isolated fever yesterday of 100.3 No source 10/15/2020: Pt in a really good mood Bowels moved yesterday Hgb 8.7 No major issues at this current time No falls 10/14/2020: Supportive care Patient denies pain No falls Tylenol given for headache BiPAP at night 10/13/2020: Patient doing really well Use BiPAP last night Bowels moved yesterday Pain is well controlled 10/12/2020: Pt having a headache, Tylenol give RT will set up her BiPAP Hgb 9.[address] [address] Wade to evaluate heart that they were concerned about during her hip fracture repair Review of Systems General: Fatigue, Malaise Pulmonary: Dyspnea Objective Exam Vital Signs Vital Signs Date Time Temp Pulse Resp B/P (MAP) Pulse Ox O2 Delivery O2 Flow Rate FiO2 10/20/20 21:45 37.1 10/20/20 21:00 Room Air 10/20/20 20:00 92 18 140/61 (87) 98 Capillary Refill : General Appearance: No Apparent Distress, WD/WN, Chronically ill HEENT: PERRL/EOMI, Normal ENT Inspection, Pharynx Normal Neck: Full Range of Motion, Normal Inspection, Non Tender, Supple, Carotid Bruit Respiratory: Chest Non Tender, Lungs Clear, Normal Breath Sounds, No Accessory Muscle Use, No Respiratory Distress Cardiovascular: Regular Rate, Rhythm, No Edema, No Gallop, No JVD, No Murmur, Normal Peripheral Pulses Gastrointestinal: Normal Bowel Sounds, No Organomegaly, No Pulsatile Mass, Non Tender, Soft Back: Normal Inspection, No CVA Tenderness, No Vertebral Tenderness Extremity: Normal Capillary Refill, Normal Inspection, Normal Range of Motion (Except left leg), Non Tender, No Calf Tenderness, No Pedal Edema Neurologic/Psychiatric: Alert, Oriented x3, No Motor/Sensory Deficits, Normal Mood/Affect, risk management manager II-XII Norm as Tested, Abnormal Gait, Motor Weakness (Left leg) Skin: Normal Color, Warm/Dry Lymphatic: No Adenopathy Results/Procedures Lab Patient resulted labs reviewed. FIM Transfers Therapy Code Descriptions/Definitions Functional [place] Measure: 0=Not Assessed/NA 4=Minimal Assistance 1=Total Assistance 5=Supervision or Setup 2=Maximal Assistance 6=Modified [place] 3=Moderate Assistance 7=Complete IndependenceSCALE: Activities may be completed with or without assistive devices. 4-Kozuuucwzd-glrcrzg completes the activity by him/herself with no assistance from a helper. 5-Set-up or Clean-up Assistance-helper sets up or cleans up; patient completes activity. [place] assists only prior to or following the activity. 4-Supervision or Touching Assistance-helper provides verbal cues and/or touching/steadying and/or contact guard assistance as patient completes activity. Assistance may be provided throughout the activity or intermittently. 3-Partial/Moderate Assistance-helper does LESS THAN HALF the effort. [place] lifts, holds or supports trunk or limbs, but provides less than half the effort. 2-Substantial/Maximal Assistance-helper does MORE THAN HALF the effort. [place] lifts or holds trunk or limbs and provides more than half the effort. 7-Gglnuzhgg-hceifd does ALL the effort. Patient does none of the effort to complete the activity. Or, the assistance of 2 or more helpers is required for the patient to complete the activity. If activity was not attempted, code reason: 7-Patient Refused. 9-Not Applicable-not attempted and the patient did not perform the activity before the current illness, exacerbation or injury. 10-Not Attempted due to Environmental Limitations-(lack of equipment, weather restraints, etc.). 88-Not Attempted due to Medical Conditions or Safety Concerns. Roll Left to Right (QC): 3 Sit to Lying (QC): 4 Sit to Stand (QC): 5 Chair/Cfe-xz-Msbcf Xfer(QC): 4 Car Transfer (QC): 2 Gait Training Does the Patient Walk?: Yes Distance: 200', 150' Walk 10 feet (QC): 4 Walk 50 ft with 2 Turns(QC): 4 Walk 150 ft (QC): 4 Walking 10ft/uneven surface-QC: 4 Gait Persons Needed: 1 Gait Assistive Device: FWW Wheelchair Training Does the Pt Use a Wheelchair?: No Distance: 150 Wheel 50 ft with 2 turns (QC): 4 Wheel 150 ft (QC): 4 Type of Wheelchair: Manual Stair Training #of Steps: 0 1 Step (curb) (QC): 88 4 Steps (QC): 88 12 Steps (QC): 88 Balance Picking up an Object (QC): 88 ADL-Treatment Eating (QC): 6 Oral Hygiene (QC): 6 Bathing Location: L Arm, R Arm, L Upper Leg, R Upper Leg, R Lower Leg (including foot), Chest, Abdomen, Buttocks, Perineal Area Shower/Bathe Self (QC): 4 Upper Body Dressing (QC): 5 Lower Body Dressing (QC): 5 On/Off Footwear (QC): 5 Toileting Hygiene (QC): 4 Toilet Transfer (QC): 4 Assessment/Plan Assessment and Plan Assess & Plan/Chief Complaint Assessment: Status post left hip fracture status post repair at [facility] Acute blood loss anemia requiring 2 units of blood at [facility] 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 History of TVAR [place] 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 ABIGAIL on biPAP Cochlear implant GERD IBS RLS Plan: Inpatient rehab protocol Monitor hemoglobin Home meds 10/12/2020: Cardiology consult Monitor closely Pain control 10/13/2020: Pain control BiPAP at night Oral anticoagulation 10/14/2020: BiPAP at night Maintain Xarelto Monitor closely 10/15/2020: Low-grade fever we will monitor closely Labs normal today 10/16/2020: Supportive care Monitor for fever 10/17/2020: Improved status Supportive care Pain control 10/18/2020: Supportive care Anticoagulation BiPAP at night 10/19/2020: Supportive care Encouraged her progress 10/20/20: Monitor closely Pain control (1) Closed intertrochanteric fracture of left hip Status: Acute DUNG KEYS DO Oct 20, 2020 07:45
[2020-10-20 08:00] VITALS: BP 115/56
[2020-10-20] MEDS: polyethylene glycoL POWDER 17 GM (MIRALAX) PACK PO SCH ×2 (08:11→21:17)
[2020-10-20] MEDS: SENNA W/DOCUSATE (SENOKOT S) TABLET PO SCH ×2 (08:11→21:17)
[2020-10-20] MEDS: RIVAROXABAN 20 MG TABLET (XARELTO) PO SCH (08:11)
[2020-10-20] MEDS: DOCUSATE SODIUM 100 MG (COLACE) CAP PO SCH ×2 (08:11→21:17)
[2020-10-20] MEDS: VENlafaxine XR 75 MG (EFFEXOR XR) CAP PO SCH (08:11)
--- NOTE | 2020-10-20 11:24 | Physical Therapy Daily Note ---
PT Daily Note-Current Subjective Pt sitting in recliner upon arrival. Pt declines need for BR. Pt agrees to EX. Pain Location: Left Location Body Site: Hip Pain Description: Ache Comment: Reported but not rated Mental Status Patient Orientation: Person, Confused, Place Transfers SCALE: Activities may be completed with or without assistive devices. 9-Jnzchhtmay-pncxffy completes the activity by him/herself with no assistance from a helper. 5-Set-up or Clean-up Assistance-helper sets up or cleans up; patient completes activity. [place] assists only prior to or following the activity. 4-Supervision or Touching Assistance-helper provides verbal cues and/or touc liyah/steadying and/or contact guard assistance as patient completes activity. Assistance may be provided throughout the activity or intermittently. 3-Partial/Moderate Assistance-helper does LESS THAN HALF the effort. [place] lifts, holds or supports trunk or limbs, but provides less than half the effort. 2-Substantial/Maximal Assistance-helper does MORE THAN HALF the effort. [place] lifts or holds trunk or limbs and provides more than half the effort. 1-Izussqqsg-ujnopm does ALL the effort. Patient does none of the effort to complete the activity. Or, the assistance of 2 or more helpers is required for the patient to complete the activity. If activity was not attempted, code reason: 7-Patient Refused. 9-Not Applicable-not attempted and the patient did not perform the activity before the current illness, exacerbation or injury. 10-Not Attempted due to Environmental Limitations-(lack of equipment, weather restraints, etc.). 88-Not Attempted due to Medical Conditions or Safety Concerns. Weight Bearing Left Lower Extremity: Left Weight Bearing/Tolerated Exercises Supine Ex: Quad Set, Hip abd/add Supine Reps: 15 Seated Therapy Exercises: Ankle pumps, Long arc quads, Hip flexion, Glut set Seated Reps: 15 Treatments Pt completes Supine & Seated Ex with RB. Pt resting in recliner with all needs met, call light in hand. Assessment Current Status: Fair Progress Pt gets confused and needs VC at times. PT Short Term Goals Short Term Goals Time Frame: Oct 19, 2020 Roll Left & Right: 4 Sit to lyin Lying to sitting on side of be: 4 Sit to stand: 4 Chair/zar-jg-pqhhw transfer: 4 Toilet transfer: 4 Car transfer: 4 Walk 10 feet: 5 Walk 50 feet with two turns: 5 Walk 150 feet: 5 Walking 10ft on uneven surface: 5 1 step (curb): 4 4 steps: 4 12 steps: 4 Picking up objects: 3 Does pt use a wc or scooter: No Wheel 50ft w/2 turns: 6 Wheel 150 feet: 6 Type: Manual PT [facility] Goals [facility] Goals PT [facility] Goals Time Frame: Nov 08, 2020 Roll Left & Right (QC): 6 Sit to Lying (QC): 6 Lying-Sitting on Side/Bed(QC): 6 Sit to Stand (QC): 6 Chair/Yae-re-Hehbm Xfer(QC): 6 Toilet Transfer (QC): 6 Car Transfer (QC): 6 Does the Patient Walk: Yes Walk 10 feet (QC): 6 Walk 50ft with 2 Turns (QC): 6 Walk 150 ft (QC): 6 Walking 10ft on Uneven Surface: 6 1 Step (curb) (QC): 6 4 Steps (QC): 6 12 Steps (QC): 6 Picking up an Object (QC): 6 Does the Pt use WC or Scooter?: No Wheel 50 feet with 2 turns (QC: 6 Type: Manual Wheel 150 feet: 6 Type: Manual PT Plan Problem List Problem List: Activity Tolerance Treatment/Plan Treatment Plan: Continue Plan of Care Treatment Plan: Bed Mobility, Education, Functional Activity Priya, Functional Strength, Group Therapy, Gait, Safety, Therapeutic Exercise, Transfers Treatment Duration: Dec 14, 2020 Frequency: At least 5 of 7 days/Wk (IRF) Estimated Hrs Per Day: 1.5 hours per day Patient and/or Family Agrees t: Yes Safety Risks/Education Patient Education: Reviewed Precautions, Correct Positioning Teaching Recipient: Patient Teaching Methods: Discussion Response to Teaching: Reinforcement Needed Time/GCodes Time In: 1035 Time Out: 1050 Total Billed Treatment Time: 15 Total Billed Treatment 1, EX (15m) ERIN MARLEY PTA Oct 20, 2020 11:24
--- NOTE | 2020-10-20 13:44 | Progress Note - Cardiology ---
Cardiology SOAP Progress Note Subjective: Gen malaise present No n/v/d No cp or palp or syncope or shortness of breath Objective: I&O/Vital Signs 10/20/20 10/20/20 08:00 09:01 Temp 36.2 Pulse 94 Resp 16 B/P (MAP) 115/56 (75) Pulse Ox 97 O2 Delivery Room Air Room Air Weight (Pounds): 174 Weight (Ounces): 12.8 Weight (Calculated Kilograms): 79.777002 Constitutional: AAO x 3, well-developed, well-nourished Respiratory: No accessory muscle use; other (fair to good bilateral air entry, diminished at the bases) Cardiovascular: regular rate-rhythm, S1 and S2, systolic murmur (soft ASHLEY at the cardiac base) Gastrointestional: No tender; soft; No guarding, No rebound; audible bowel sounds Extremities: No clubbing, No cyanosis, No significant edema Neurologic/Psychiatric: alert, other (appears to be able to move all limbs equally; appears to have poor memory; appears to have mild L-sided weakness) Skin: No rash on exposed areas, No ulcerations on exposed areas A/P: Assessment: Hospitalization to inpatient rehab (Dr Mcintosh) on 10/11/20 following L hip fracture repair at [facility] - post-op anemia is being managed by Dr Mcintosh H/o aortic stenosis -S/P TAVR by Dr. Chang at [facility] June 2020 - subsquent CVA requiring transfer to [facility] neurology for thromboembolectomy by Dr. Ornelas (neuro-surgery) and Dr. De Santiago (neurologist) - per daughters report (records not available) - Echocardiogram of 08-01-20 post TAVR - LVEF 50-55%; mild MR; bioprosthetic aortic valve with peak gradient 11 and mean gradient 7 mmHg. Trivial AoR with very mild stenosis; can not exclude small PFO H/o CVA post TAVR in June 2020 -treated with R MCA thromboembolectomy at [place], [place], with improvement but not complete resolution of L-sided weakness and R-sided gaze preference Right superficial femoral artery pseudoaneursym after cardiac cath of Dec 27, 2019, treated with thrombin injection by Dr. 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
[2020-10-20 20:00] VITALS: BP 140/61
[2020-10-20] MEDS: MELATONIN 3 MG TABLET PO SCH (21:14)
[2020-10-20] MEDS: IMIPRAMINE 25 MG (TOFRANIL) TAB PO SCH (21:14)
[2020-10-21 08:10] VITALS: BP 127/88
--- NOTE | 2020-10-21 08:23 | PM&R Progress Note ---
Subjective HPI/CC On Admission Date Seen by Provider: Oct 21, 2020 Time Seen by Provider: 13:15 Subjective/Events-last exam 10/21/2020: Patient feels much better Needed suppository thin fleets and soapsuds enema to evacuate bowels [place] are now out No confusion today 10/20/20: Patient is a bit confused today Apathy noted Tried to reassure and help motivate her DC Thursday10/19/2020: Patient improved Feels discouraged Tried to reassure her No major changes 10/18/2020: Patient doing pretty well Wonders how she will get back to [place] and I told her social security specialist would arrange Bowels moved yesterday Discharge plan for 10/24/2020 10/17/2020: Pt doing really well Having some formed bowel movement so will initiate fleets enema to completely evacuate Weaning BiPAP at night Will return to [place] when she is done with inpatient rehab 10/16/2020: Pt doing pretty well Working with therapy Had an isolated fever yesterday of 100.3 No source 10/15/2020: Pt in a really good mood Bowels moved yesterday Hgb 8.7 No major issues at this current time No falls 10/14/2020: Supportive care Patient denies pain No falls Tylenol given for headache BiPAP at night 10/13/2020: Patient doing really well Use BiPAP last night Bowels moved yesterday Pain is well controlled 10/12/2020: Pt having a headache, Tylenol give RT will set up her BiPAP Hgb 9.[address] Wade to evaluate heart that they were concerned about during her hip fracture repair Review of Systems General: Fatigue, Malaise Musculoskeletal: leg pain Objective Exam Vital Signs Vital Signs Date Time Temp Pulse Resp B/P (MAP) Pulse Ox O2 Delivery O2 Flow Rate FiO2 10/21/20 21:41 37.2 10/21/20 21:00 Room Air 10/21/20 20:00 81 16 138/64 (88) 98 Capillary Refill : General Appearance: No Apparent Distress, WD/WN, Chronically ill HEENT: PERRL/EOMI, Normal ENT Inspection, Pharynx Normal Neck: Full Range of Motion, Normal Inspection, Non Tender, Supple, Carotid Bruit Respiratory: Chest Non Tender, Lungs Clear, Normal Breath Sounds, No Accessory Muscle Use, No Respiratory Distress Cardiovascular: Regular Rate, Rhythm, No Edema, No Gallop, No JVD, No Murmur, Normal Peripheral Pulses Gastrointestinal: Normal Bowel Sounds, No Organomegaly, No Pulsatile Mass, Non Tender, Soft Back: Normal Inspection, No CVA Tenderness, No Vertebral Tenderness Extremity: Normal Capillary Refill, Normal Inspection, Normal Range of Motion (Except left leg), Non Tender, No Calf Tenderness, No Pedal Edema Neurologic/Psychiatric: Alert, Oriented x3, No Motor/Sensory Deficits, Normal Mood/Affect, make ready worker II-XII Norm as Tested, Abnormal Gait, Motor Weakness (Left leg) Skin: Normal Color, Warm/Dry Lymphatic: No Adenopathy Results/Procedures Lab Laboratory Tests 10/22/20 05:23 Patient resulted labs reviewed. FIM Transfers Therapy Code Descriptions/Definitions Functional [place] Measure: 0=Not Assessed/NA 4=Minimal Assistance 1=Total Assistance 5=Supervision or Setup 2=Maximal Assistance 6=Modified [place] 3=Moderate Assistance 7=Complete IndependenceSCALE: Activities may be completed with or without assistive devices. 0-Eqescxmymp-ucahrjo completes the activity by him/herself with no assistance from a helper. 5-Set-up or Clean-up Assistance-helper sets up or cleans up; patient completes activity. [place] assists only prior to or following the activity. 4-Supervision or Touching Assistance-helper provides verbal cues and/or touching/steadying and/or contact guard assistance as patient completes activity. Assistance may be provided throughout the activity or intermittently. 3-Partial/Moderate Assistance-helper does LESS THAN HALF the effort. [place] lifts, holds or supports trunk or limbs, but provides less than half the effort. 2-Substantial/Maximal Assistance-helper does MORE THAN HALF the effort. [place] lifts or holds trunk or limbs and provides more than half the effort. 1-Iegwgjovm-mjymvu does ALL the effort. Patient does none of the effort to complete the activity. Or, the assistance of 2 or more helpers is required for the patient to complete the activity. If activity was not attempted, code reason: 7-Patient Refused. 9-Not Applicable-not attempted and the patient did not perform the activity before the current illness, exacerbation or injury. 10-Not Attempted due to Environmental Limitations-(lack of equipment, weather restraints, etc.). 88-Not Attempted due to Medical Conditions or Safety Concerns. Roll Left to Right (QC): 3 Sit to Lying (QC): 4 Sit to Stand (QC): 5 Chair/Unh-fo-Wwnmx Xfer(QC): 4 Car Transfer (QC): 2 Gait Training Does the Patient Walk?: Yes Distance: 200', 150' Walk 10 feet (QC): 4 Walk 50 ft with 2 Turns(QC): 4 Walk 150 ft (QC): 4 Walking 10ft/uneven surface-QC: 4 Gait Persons Needed: 1 Gait Assistive Device: FWW Wheelchair Training Does the Pt Use a Wheelchair?: No Distance: 150 Wheel 50 ft with 2 turns (QC): 4 Wheel 150 ft (QC): 4 Type of Wheelchair: Manual Stair Training #of Steps: 0 1 Step (curb) (QC): 88 4 Steps (QC): 88 12 Steps (QC): 88 Balance Picking up an Object (QC): 88 ADL-Treatment Eating (QC): 6 Oral Hygiene (QC): 6 Bathing Location: L Arm, R Arm, L Upper Leg, R Upper Leg, R Lower Leg (including foot), Chest, Abdomen, Buttocks, Perineal Area Shower/Bathe Self (QC): 4 Upper Body Dressing (QC): 5 Lower Body Dressing (QC): 5 On/Off Footwear (QC): 5 Toileting Hygiene (QC): 4 Toilet Transfer (QC): 4 Assessment/Plan Assessment and Plan Assess & Plan/Chief Complaint Assessment: Status post left hip fracture status post repair at [facility] Acute blood loss anemia requiring 2 units of blood at [facility] 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 History of JENELLE [place] 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 ABIGAIL on biPAP Cochlear implant GERD IBS RLS Plan: Inpatient rehab protocol Monitor hemoglobin Home meds 10/12/2020: Cardiology consult Monitor closely Pain control 10/13/2020: Pain control BiPAP at night Oral anticoagulation 10/14/2020: BiPAP at night Maintain Xarelto Monitor closely 10/15/2020: Low-grade fever we will monitor closely Labs normal today 10/16/2020: Supportive care Monitor for fever 10/17/2020: Improved status Supportive care Pain control 10/18/2020: Supportive care Anticoagulation BiPAP at night 10/19/2020: Supportive care Encouraged her progress 10/20/20: Monitor closely Pain control 10/21/2020: Monitor closely Supportive care (1) Closed intertrochanteric fracture of left hip Status: Acute DUNG KEYS DO Oct 21, 2020 08:23
[2020-10-21] MEDS: RIVAROXABAN 20 MG TABLET (XARELTO) PO SCH (09:16)
[2020-10-21] MEDS: DOCUSATE SODIUM 100 MG (COLACE) CAP PO SCH ×2 (09:16→20:55)
[2020-10-21] MEDS: SENNA W/DOCUSATE (SENOKOT S) TABLET PO SCH ×2 (09:16→20:55)
[2020-10-21] MEDS: VENlafaxine XR 75 MG (EFFEXOR XR) CAP PO SCH (09:16)
[2020-10-21] MEDS: polyethylene glycoL POWDER 17 GM (MIRALAX) PACK PO SCH ×2 (09:32→20:54)
[2020-10-21] MEDS: FLEET ENEMA ADULT 1 EA BTL PR PRN (10:15)
[2020-10-21] MEDS: PANTOPRAZOLE 20 MG TABLET (PROTONIX) PO SCH ×2 (17:01→17:02)
[2020-10-21 20:00] VITALS: BP 138/64
[2020-10-21] MEDS: IMIPRAMINE 25 MG (TOFRANIL) TAB PO SCH (20:54)
[2020-10-21] MEDS: MELATONIN 3 MG TABLET PO SCH (20:54)
[2020-10-21] MEDS: ACETAMINOPHEN 325 MG TABLET PO PRN (20:54)
[2020-10-22 05:53] LABS: BASOPHILS % (AUTO) 1 % (0-10); EOSINOPHILS # (AUTO) 0.1 10^3/uL (0.0-0.3); EOSINOPHILS % (AUTO) 3 % (0-10); HEMATOCRIT 33 % (35-52); HEMOGLOBIN 9.8 g/dL (11.5-16.0); LYMPHOCYTES # (AUTO) 1.3 10^3/uL (1.0-4.0); LYMPHOCYTES % (AUTO) 25 % (12-44); MEAN CORPUSCULAR HEMOGLOBIN 30 pg (25-34); MEAN CORPUSCULAR HGB CONC 29 g/dL (32-36); MEAN CORPUSCULAR VOLUME 102 fL (80-99); MEAN PLATELET VOLUME 9.6 fL (9.0-12.2); MONOCYTES # (AUTO) 0.5 10^3/uL (0.0-1.0); MONOCYTES % (AUTO) 11 % (0-12); NEUTROPHILS % (AUTO) 60 % (42-75); PLATELET COUNT 379 10^3/uL (130-400)
[2020-10-22 05:59] LABS: ALBUMIN 3.1 GM/DL (3.2-4.5); POTASSIUM 4.1 MMOL/L (3.6-5.0)
[2020-10-22 06:00] LABS: CALCIUM 9.4 MG/DL (8.5-10.1)
[2020-10-22 06:01] LABS: TOTAL PROTEIN 6.2 GM/DL (6.4-8.2)
[2020-10-22 06:03] LABS: BILIRUBIN,TOTAL 0.9 MG/DL (0.1-1.0)
[2020-10-22 06:05] LABS: CREATININE SERUM 0.69 MG/DL (0.60-1.30)
[2020-10-22] MEDS: PANTOPRAZOLE 20 MG TABLET (PROTONIX) PO SCH ×2 (06:40→16:08)
--- NOTE | 2020-10-22 07:14 | PM&R Progress Note ---
Subjective HPI/CC On Admission Date Seen by Provider: Oct 22, 2020 Time Seen by Provider: 10:30 Subjective/Events-last exam 10/22/2020: Patient doing pretty well Bowels moved yesterday Hemoglobin 9.8 No pain issues 10/21/2020: Patient feels much better Needed suppository thin fleets and soapsuds enema to evacuate bowels [place] are now out No confusion today 10/20/20: Patient is a bit confused today Apathy noted Tried to reassure and help motivate her DC Thursday10/19/2020: Patient improved Feels discouraged Tried to reassure her No major changes 10/18/2020: Patient doing pretty well Wonders how she will get back to [facility] [place] and I told her social worker aide would arrange Bowels moved yesterday Discharge plan for 10/24/2020 10/17/2020: Pt doing really well Having some formed bowel movement so will initiate fleets enema to completely evacuate Weaning BiPAP at night Will return to [facility] when she is done with inpatient rehab 10/16/2020: Pt doing pretty well Working with therapy Had an isolated fever yesterday of 100.3 No source 10/15/2020: Pt in a really good mood Bowels moved yesterday Hgb 8.7 No major issues at this current time No falls 10/14/2020: Supportive care Patient denies pain No falls Tylenol given for headache BiPAP at night 10/13/2020: Patient doing really well Use BiPAP last night Bowels moved yesterday Pain is well controlled 10/12/2020: Pt having a headache, Tylenol give RT will set up her BiPAP Hgb 9.[address] Wade to evaluate heart that they were concerned about during her hip fracture repair Review of Systems General: Fatigue Objective Exam Vital Signs Vital Signs Date Time Temp Pulse Resp B/P (MAP) Pulse Ox O2 Delivery O2 Flow Rate FiO2 10/22/20 09:00 Room Air 10/22/20 07:29 36.8 80 18 143/65 (91) 98 Capillary Refill : General Appearance: No Apparent Distress, WD/WN, Chronically ill HEENT: PERRL/EOMI, Normal ENT Inspection, Pharynx Normal Neck: Full Range of Motion, Normal Inspection, Non Tender, Supple, Carotid Bruit Respiratory: Chest Non Tender, Lungs Clear, Normal Breath Sounds, No Accessory Muscle Use, No Respiratory Distress Cardiovascular: Regular Rate, Rhythm, No Edema, No Gallop, No JVD, No Murmur, N ormal Peripheral Pulses Gastrointestinal: Normal Bowel Sounds, No Organomegaly, No Pulsatile Mass, Non Tender, Soft Back: Normal Inspection, No CVA Tenderness, No Vertebral Tenderness Extremity: Normal Capillary Refill, Normal Inspection, Normal Range of Motion (Except left leg), Non Tender, No Calf Tenderness, No Pedal Edema Neurologic/Psychiatric: Alert, Oriented x3, No Motor/Sensory Deficits, Normal Mood/Affect, chief hospital administrator II-XII Norm as Tested, Abnormal Gait, Motor Weakness (Left leg) Skin: Normal Color, Warm/Dry Lymphatic: No Adenopathy Results/Procedures Lab Laboratory Tests 10/22/20 05:23 Patient resulted labs reviewed. FIM Transfers Therapy Code Descriptions/Definitions Functional [place] Measure: 0=Not Assessed/NA 4=Minimal Assistance 1=Total Assistance 5=Supervision or Setup 2=Maximal Assistance 6=Modified [place] 3=Moderate Assistance 7=Complete IndependenceSCALE: Activities may be completed with or without assistive devices. 7-Hgcqmyxeyq-vfaaebp completes the activity by him/herself with no assistance from a helper. 5-Set-up or Clean-up Assistance-helper sets up or cleans up; patient completes activity. [place] assists only prior to or following the activity. 4-Supervision or Touching Assistance-helper provides verbal cues and/or touching/steadying and/or contact guard assistance as patient completes activity. Assistance may be provided throughout the activity or intermittently. 3-Partial/Moderate Assistance-helper does LESS THAN HALF the effort. [place] lift s, holds or supports trunk or limbs, but provides less than half the effort. 2-Substantial/Maximal Assistance-helper does MORE THAN HALF the effort. [place] lifts or holds trunk or limbs and provides more than half the effort. 6-Sybrrjhio-iykjui does ALL the effort. Patient does none of the effort to complete the activity. Or, the assistance of 2 or more helpers is required for the patient to complete the activity. If activity was not attempted, code reason: 7-Patient Refused. 9-Not Applicable-not attempted and the patient did not perform the activity before the current illness, exacerbation or injury. 10-Not Attempted due to Environmental Limitations-(lack of equipment, weather restraints, etc.). 88-Not Attempted due to Medical Conditions or Safety Concerns. Roll Left to Right (QC): 3 Sit to Lying (QC): 4 Sit to Stand (QC): 5 Chair/Hxx-wt-Nnxjm Xfer(QC): 4 Car Transfer (QC): 2 Gait Training Does the Patient Walk?: Yes Distance: 200', 150' Walk 10 feet (QC): 4 Walk 50 ft with 2 Turns(QC): 4 Walk 150 ft (QC): 4 Walking 10ft/uneven surface-QC: 4 Gait Persons Needed: 1 Gait Assistive Device: FWW Wheelchair Training Does the Pt Use a Wheelchair?: No Distance: 150 Wheel 50 ft with 2 turns (QC): 4 Wheel 150 ft (QC): 4 Type of Wheelchair: Manual Stair Training #of Steps: 0 1 Step (curb) (QC): 88 4 Steps (QC): 88 12 Steps (QC): 88 Balance Picking up an Object (QC): 88 ADL-Treatment Eating (QC): 6 Oral Hygiene (QC): 6 Bathing Location: L Arm, R Arm, L Upper Leg, R Upper Leg, R Lower Leg (including foot), Chest, Abdomen, Buttocks, Perineal Area Shower/Bathe Self (QC): 4 Upper Body Dressing (QC): 5 Lower Body Dressing (QC): 5 On/Off Footwear (QC): 5 Toileting Hygiene (QC): 4 Toilet Transfer (QC): 4 Assessment/Plan Assessment and Plan Assess & Plan/Chief Complaint Assessment: Status post left hip fracture status post repair at [facility] Acute blood loss anemia requiring 2 units of blood at [facility] 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 History of JENELLE [place] 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 ABIGAIL on biPAP Cochlear implant GERD IBS RLS Plan: Inpatient rehab protocol Monitor hemoglobin Home meds 10/12/2020: Cardiology consult Monitor closely Pain control 10/13/2020: Pain control BiPAP at night Oral anticoagulation 10/14/2020: BiPAP at night Maintain Xarelto Monitor closely 10/15/2020: Low-grade fever we will monitor closely Labs normal today 10/16/2020: Supportive care Monitor for fever 10/17/2020: Improved status Supportive care Pain control 10/18/2020: Supportive care Anticoagulation BiPAP at night 10/19/2020: Supportive care Encouraged her progress 10/20/20: Monitor closely Pain control 10/21/2020: Monitor closely Supportive care 10/22/2020: Supportive care Discharge plan on Thursday (1) Closed intertrochanteric fracture of left hip Status: Acute DUNG KEYS DO Oct 22, 2020 07:14
[2020-10-22 07:29] VITALS: BP 143/65
[2020-10-22] MEDS: RIVAROXABAN 20 MG TABLET (XARELTO) PO SCH (07:51)
[2020-10-22] MEDS: DOCUSATE SODIUM 100 MG (COLACE) CAP PO SCH ×2 (07:51→21:39)
[2020-10-22] MEDS: SENNA W/DOCUSATE (SENOKOT S) TABLET PO SCH ×2 (07:51→21:39)
[2020-10-22] MEDS: VENlafaxine XR 75 MG (EFFEXOR XR) CAP PO SCH (07:51)
[2020-10-22] MEDS: polyethylene glycoL POWDER 17 GM (MIRALAX) PACK PO SCH ×2 (07:56→21:36)
--- NOTE | 2020-10-22 10:14 | Physical Therapy Daily Note ---
PT Daily Note-Current Subjective Pt up in chair, agreeable. Mildly confused, difficulty with sequencing tasks at times. Pain Numeric Pain Scale: 0-No Pain Mental Status Patient Orientation: Person, Confused, Place, Situation Transfers SCALE: Activities may be completed with or without assistive devices. 0-Rhmahfvnzd-vzcdzgp completes the activity by him/herself with no assistance from a helper. 5-Set-up or Clean-up Assistance-helper sets up or cleans up; patient completes activity. [place] assists only prior to or following the activity. 4-Supervision or Touching Assistance-helper provides verbal cues and/or touching/steadying and/or contact guard assistance as patient completes activity. Assistance may be provided throughout the activity or intermittently. 3-Partial/Moderate Assistance-helper does LESS THAN HALF the effort. [place] lifts, holds or supports trunk or limbs, but provides less than half the effort. 2-Substantial/Maximal Assistance-helper does MORE THAN HALF the effort. [place] lifts or holds trunk or limbs and provides more than half the effort. 3-Mfzposrrz-wlffvf does ALL the effort. Patient does none of the effort to complete the activity. Or, the assistance of 2 or more helpers is required for the patient to complete the activity. If activity was not attempted, code reason: 7-Patient Refused. 9-Not Applicable-not attempted and the patient did not perform the activity before the current illness, exacerbation or injury. 10-Not Attempted due to Environmental Limitations-(lack of equipment, weather restraints, etc.). 88-Not Attempted due to Medical Conditions or Safety Concerns. Roll Left & Right (QC): 6 Sit to Lying (QC): 6 Lying to Sitting/Side of Bed(Q: 6 Sit to Stand (QC): 5 Chair/Aji-fd-Kvxoe Xfer(QC): 5 Toilet Transfer (QC): 4 Car Transfer (QC): 5 1 retro LOB during toilet transfer with min A x 1 to correct; close SBA with occasional VCS for safety with other transfers. Weight Bearing Left Lower Extremity: Left Weight Bearing/Tolerated Gait Training Does the Patient Walk?: Yes Distance: 150 Walk 10 feet (QC): 5 Walk 50 ft with 2 Turns(QC): 5 Walk 150 ft (QC): 5 Walking 10ft/uneven surface-QC: 4 Gait Persons Needed: 1 Gait Assistive Device: FWW Pt ambulates with slow gait with FWW, narrow JOLYNN. No donald LOB but unsteady at times. Wheelchair Training Does the Pt Use a Wheelchair?: No Wheel 50 ft with 2 turns (QC): 9 Wheel 150 ft (QC): 9 Type of Wheelchair: N/A Stair Training Stair Training: Handrails/: 2 handrails #of Steps: 4 1 Step (curb) (QC): 4 4 Steps (QC): 4 12 Steps (QC): 9 Stairs: Pattern: Step to VCS for sequencing, safety on steps. CGA for balance, safety Balance Picking up an Object (QC): 5 Exercises Seated Therapy Exercises: Ankle pumps, Long arc quads Seated Reps: 20 NuStep Minutes: 4 NuStep Workload: 10 Treatments NuStep and LE strengthening for activity tolerance, functional strength. Gait training and transfer training with FWW. Returned to up in chair with all needs met. Assessment Current Status: Good Progress Pt tolerated well. Mildly confused with decreased safety awareness. PT Short Term Goals Short Term Goals Time Frame: Oct 19, 2020 Roll Left & Right: 4 Sit to lyin Lying to sitting on side of be: 4 Sit to stand: 4 Chair/hct-do-bqqme transfer: 4 Toilet transfer: 4 Car transfer: 4 Walk 10 feet: 5 Walk 50 feet with two turns: 5 Walk 150 feet: 5 Walking 10ft on uneven surface: 5 1 step (curb): 4 4 steps: 4 12 steps: 4 Picking up objects: 3 Does pt use a wc or scooter: No Wheel 50ft w/2 turns: 6 Wheel 150 feet: 6 Type: Manual PT Nursing Home Goals Nursing Home Goals PT Nursing Home Goals Time Frame: Nov 08, 2020 Roll Left & Right (QC): 6 Sit to Lying (QC): 6 Lying-Sitting on Side/Bed(QC): 6 Sit to Stand (QC): 6 Chair/Apt-xo-Qlica Xfer(QC): 6 Toilet Transfer (QC): 6 Car Transfer (QC): 6 Does the Patient Walk: Yes Walk 10 feet (QC): 6 Walk 50ft with 2 Turns (QC): 6 Walk 150 ft (QC): 6 Walking 10ft on Uneven Surface: 6 1 Step (curb) (QC): 6 4 Steps (QC): 6 12 Steps (QC): 6 Picking up an Object (QC): 6 Does the Pt use WC or Scooter?: No Wheel 50 feet with 2 turns (QC: 6 Type: Manual Wheel 150 feet: 6 Type: Manual PT Plan Problem List Problem List: Activity Tolerance, Functional Strength, Safety, Balance, Gait, Transfer, Bed Mobility Treatment/Plan Treatment Plan: Continue Plan of Care Treatment Plan: Bed Mobility, Education, Functional Activity Priya, Functional Strength, Group Therapy, Gait, Safety, Therapeutic Exercise, Transfers Treatment Duration: Dec 14, 2020 Frequency: At least 5 of 7 days/Wk (IRF) Estimated Hrs Per Day: 1.5 hours per day Patient and/or Family Agrees t: Yes Safety Risks/Education Patient Education: Safety Issues Teaching Recipient: Patient Teaching Methods: Discussion Response to Teaching: Reinforcement Needed Time/GCodes Time In: 0800 Time Out: 0900 Total Billed Treatment Time: 60 Total Billed Treatment 1, Ex x 23', GT x 37' JOHNATHAN ZHU DPT Oct 22, 2020 10:14
--- NOTE | 2020-10-22 11:26 | Occupational Ther Daily Note ---
OT Current Status-Daily Note Subjective Pt seen in room, up in recliner, agreeable to OT. No pain mentioned. Appearance Alert, cooperative. Recalled therapist from previous admissions. Mildly confused at times during ADLs, requiring physical assist or verbal cues. ADL-Treatment Able to feed herself. Pt got up from recliner with SBA and walked CGA, FWW to bathroom. Completed toilet transfer with CGA and SBA for managing clothing and hygiene. Used grab bar and tall toilet. Pt able to take pants off but needed help to take off ASHWIN hose. Walked to shower with CGA, FWW and transferred into shower with SBA, using grab bars. Was not able to problem solve walker placement prior to transfer. SBA to sit on shower bench, using grab bars. Pt washed and dried all parts, seated, using hand held shower and long handled sponge. Did not require cues for sequencing in shower but did need CGA when standing to dry bottom and upper legs. Walked CGA, FWW to recliner to dress. Used medical director occupational health to put on pants, with SBA to stand to pull pants up, FWW. Donned shirt setup but needed cues to hook bra (to position it correctly). Help to don TEDs. Used sock aid to put on slipper socks. She needed cues to put socks on device correctly - knew it wasn't right but didn't know how to fix it. Walked back to bathroom to brush teeth and comb/dry hair, with no assistance except SBA when standing to brush teeth. Pt left up in chair for next therapy. Therapy Code Descriptions/Definitions Functional [place] Measure: 0=Not Assessed/NA 4=Minimal Assistance 1=Total Assistance 5=Supervision or Setup 2=Maximal Assistance 6=Modified [place] 3=Moderate Assistance 7=Complete IndependenceSCALE: Activities may be completed with or without assistive devices. 0-Ydtpkpwbbg-dfntekz completes the activity by him/herself with no assistance from a helper. 5-Set-up or Clean-up Assistance-helper sets up or cleans up; patient completes activity. [place] assists only prior to or following the activity. 4-Supervision or Touching Assistance-helper provides verbal cues and/or touching/steadying and/or contact guard assistance as patient completes activity. Assistance may be provided throughout the activity or intermittently. 3-Partial/Moderate Assistance-helper does LESS THAN HALF the effort. [place] lifts, holds or supports trunk or limbs, but provides less than half the effort. 2-Substantial/Maximal Assistance-helper does MORE THAN HALF the effort. [place] lifts or holds trunk or limbs and provides more than half the effort. 2-Kkkndxveo-pbfrkt does ALL the effort. Patient does none of the effort to complete the activity. Or, the assistance of 2 or more helpers is required for the patient to complete the activity. If activity was not attempted, code reason: 7-Patient Refused. 9-Not Applicable-not attempted and the patient did not perform the activity before the current illness, exacerbation or injury. 10-Not Attempted due to Environmental Limitations-(lack of equipment, weather restraints, etc.). 88-Not Attempted due to Medical Conditions or Safety Concerns. Eating (QC): 6 Oral Hygiene (QC): 4 (SBA when standing to brush teeth) Shower/Bathe Self (QC): 4 (CGA for drying) Upper Body Dressing (QC): 4 (Supervision, cues) Lower Body Dressing (QC): 4 (SBA) On/Off Footwear: 4 (supervision) Toileting Hygiene (QC): 4 (CGA) Toilet Transfer (QC): 4 (CGA) Education OT Patient Education: Progress toward Goal/Update tx plan, Purpose of tx/funct ional activities, Safety issues, Transfer techniques, Use of adapted equipment Teaching Recipient: Patient Teaching Methods: Demonstration, Discussion Response to Teaching: Verbalize Understanding, Return Demonstration, Reinforcement Needed OT Short Term Goals Short Term Goals Time Frame: Oct 18, 2020 Eatin Oral hygiene: 5 Toileting hygiene: 4 Shower/bathe self: 4 Upper body dressin Lower body dressin Putting on/taking off footwear: 4 OT Fax Machine Operator Goals Custodial Goals Time Frame: Oct 22, 2020 Eating (QC): 6 Oral Hygiene (QC): 6 Toileting Hygiene (QC): 6 Shower/Bathe Self (QC): 5 Upper Body Dressing (QC): 6 Lower Body Dressing (QC): 6 On/Off Footwear (QC): 6 1=Demonstrate adherence to instructed precautions during ADL tasks. 2=Patient will verbalize/demonstrate understanding of assistive devic es/modifications for ADL. 3=Patient will improve strength/tolerance for activity to enable patient to perform ADL's. OT Education/Plan Discharge Recommendations Plan/Recommendations: Continue POC Treatment Plan/Plan of Care Patient would benefit from OT for education, treatment and training to promote independence in ADL's, mobility, safety and/or upper extremity function for ADL's. Plan of Care: ADL Retraining, Functional Mobility, Group Exercise/Act as Ind, UE Funct Exercise/Act Treatment Duration: Oct 22, 2020 Frequency: At least 5 of 7 days/Wk (IRF) Estimated Hrs Per Day: 1.5 hours per day Agreement: Yes Rehab Potential: Good Time/GCodes Start Time: 09:45 Stop Time: 10:50 Total Time Billed (hr/min): 65 Billed Treatment Time visit, 65 minutes ADL MARIZA VALDES OT Oct 22, 2020 11:26
--- NOTE | 2020-10-22 12:41 | Therapy Group Daily Note ---
Therapy Daily Group Note Patient Education Topic Other List Below Exercises Other Session Ratio (pt:therapist): 4:1 Goal of Session: Other (list) Increase awareness of mental health with disability. Increase independence with mental self care and mental awareness. Provide education regarding anxiety and control mechanisms for health and safety. Provide environment with other patients for conversation with others going through similiar situations. Goal Met for this Session: Yes Pt Benefit of Group: Other Please see above note. Pt. met all goals. Other/Notes Pt. ambulated to group with walker with CGA. Participated in discussion regarding anxiety, depression, and self care during disability. Pt. educated in and participated in breathing techniques and strategies for grounding. Participated well. Start Time: 11:00 Stop Time: 12:00 Total Billed Treatment Time: 60 Total Billed Treatment 1, grp JOHN MARRERO OT Oct 22, 2020 12:41
--- NOTE | 2020-10-22 15:08 | Progress Note - Cardiology ---
Cardiology SOAP Progress Note Subjective: Gen malaise and weakness No cp or palp or syncope or shortness of breath No n/v/d Objective: I&O/Vital Signs 10/22/20 10/22/20 07:29 09:00 Temp 36.8 Pulse 80 Resp 18 B/P (MAP) 143/65 (91) Pulse Ox 98 O2 Delivery Room Air Room Air Weight (Pounds): 174 Weight (Ounces): 12.8 Weight (Calculated Kilograms): 79.405763 Constitutional: AAO x 3, well-developed, well-nourished Respiratory: No accessory muscle use; other (fair to good bilateral air entry, diminished at the bases) Cardiovascular: regular rate-rhythm, S1 and S2, systolic murmur (soft ASHLEY at the cardiac base) Gastrointestional: No tender; soft; No guarding, No rebound; audible bowel sounds Extremities: other (mild, bilateral leg edema); No clubbing, No cyanosis Neurologic/Psychiatric: alert, other (appears to be able to move all limbs equally; appears to have poor memory; appears to have mild L-sided weakness) Skin: No rash on exposed areas, No ulcerations on exposed areas Results/Procedures: Labs Laboratory Tests 10/22/20 05:23: White Blood Count 5.0, Red Blood Count 3.28L, Hemoglobin 9.8L, Hematocrit 33L, Mean Corpuscular Volume 102H, Mean Corpuscular Hemoglobin 30, Mean Corpuscular Hemoglobin Concent 29L, Red Cell Distribution Width 17.9H, Platelet Count 379, Mean Platelet Volume 9.6, Immature Granulocyte % (Auto) 1, Neutrophils (%) (Auto) 60, Lymphocytes (%) (Auto) 25, Monocytes (%) (Auto) 11, Eosinophils (%) (Auto) 3, Basophils (%) (Auto) 1, Neutrophils # (Auto) 3.0, Lymphocytes # (Auto) 1.3, Monocytes # (Auto) 0.5, Eosinophils # (Auto) 0.1, Basophils # (Auto) 0.0, Immature Granulocyte # (Auto) 0.0, Sodium Level 137, Potassium Level 4.1, Chloride Level 102, Carbon Dioxide Level 28, Anion Gap 7, Blood Urea Nitrogen 21H, Creatinine 0.69, Estimat Glomerular Filtration Rate 81, BUN/Creatinine Ratio 30, Glucose Level 107H, Calcium Level 9.4, Corrected Calcium 10.1, Total Bilirubin 0.9, Aspartate Amino Transf (AST/SGOT) 20, Alanine Aminotransferase (ALT/SGPT) 23, Alkaline Phosphatase 179H, Total Protein 6.2L, Albumin 3.1L Laboratory Tests 10/22/20 05:23 A/P: Assessment: Hospitalization to inpatient rehab (Dr Mcintosh) on 10/11/20 following L hip fracture repair at [facility] - post-op anemia is being managed by Dr Mcintosh H/o aortic stenosis -S/P TAVR by Dr. Chang at [facility] June 2020 - subsquent CVA requiring transfer to [facility] neurology for thromboembolectomy by Dr. Ornelas (neuro-surgery) and Dr. De Santiago (neurologist) - per arlette report (records not available) - Echocardiogram of 08-01-20 post TAVR - LVEF 50-55%; mild MR; bioprosthetic aortic valve with peak gradient 11 and mean gradient 7 mmHg. Trivial AoR with very mild stenosis; can not exclude small PFO H/o CVA post TAVR in June 2020 -treated with R MCA thromboembolectomy at [place], [place], with improvement but not complete resolution of L-sided weakness and R-sided gaze preference Right superficial femoral artery pseudoaneursym after cardiac cath of Dec 27, 2019, treated with thrombin injection by Dr. 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
[2020-10-22] MEDS ORDERED: LACT20SO2 PO (17:41)
[2020-10-22] MEDS ORDERED: IMIP25TA4 PO (17:41)
[2020-10-22] MEDS ORDERED: DCS100C PO (17:41)
[2020-10-22] MEDS ORDERED: SENN1TAB76 PO (17:41)
[2020-10-22] MEDS ORDERED: POLY17PO54 PO (17:41)
[2020-10-22] MEDS ORDERED: TRM50T PO (17:41)
--- NOTE | 2020-10-22 17:43 | D/C HH Face to Face Order ---
D/C Face to Face Orders Reconcile Patient Problems Problems Reviewed?: Yes Instructions for Patient [employer], Patient Instructions/FollowUp: Dr. Mcintosh in 1 week Physician to follow Patient: Dayna Discharge Diet for Home: No Restrictions Patient Problems: Hip fracture Recent stroke Patient Data-Allergies,Ht & Wt Patient Allergies: Coded Allergies: No Known Drug Allergies (Unverified , 02/04/17) Height (Feet): 5 Height (Inches): 3.00 Weight (Pounds): 174 Weight (Ounces): 12.8 Home Health Need/Face to Face Date of Face to Face: Oct 22, 2020 Clinical Findings: Instability, Muscle weakness, Pain with ambulation I have seen Pt awfj-ex-ixin: Yes Discharged To: Home Diagnosis/Conditions: Hip fracture Patient is Homebound due to: CognItive deficits, [place] fall risk due to instabilty, Muscle weakness, Pain w/ambulation Homebound Status Due to the above stated illness, injury or surgical procedure (medical condition or diagnosis) and associated clinical findings, the patient is homebound because of his/her inability to leave home except with aid of a supportive device and/or person AND leaving the home requires a considerable and taxing effort or is medically contraindicated. Pt req the following assistanc: Walker Certify Stmt I certify that this patient is under my care and that I, a nurse practitioner or a physician; a assistant warehouse manager working with me, had a face to face encounter that - meets the physician face to face encounter requirements with this patient as dated. DUNG MCINTOSH DO Oct 22, 2020 17:43
[2020-10-22 20:00] VITALS: BP 128/60
[2020-10-22] MEDS: IMIPRAMINE 25 MG (TOFRANIL) TAB PO SCH (21:36)
[2020-10-22] MEDS: MELATONIN 3 MG TABLET PO SCH (21:39)
[2020-10-22] MEDS: ACETAMINOPHEN 325 MG TABLET PO PRN (22:05)
--- NOTE | 2020-10-23 05:47 | Discharge Summary ---
Diagnosis/Chief Complaint Date of Admission Oct 11, 2020 at 10:41 Date of Discharge Discharge Date: Oct 23, 2020 Discharge Diagnosis Assessment: Status post left hip fracture status post repair at [facility] Acute blood loss anemia requiring [address] 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 ABIGAIL on biPAP Cochlear implant GERD IBS RLS Plan: Inpatient rehab protocol Monitor hemoglobin Home meds 10/12/2020: Cardiology consult Monitor closely Pain control 10/13/2020: Pain control BiPAP at night Oral anticoagulation 10/14/2020: BiPAP at night Maintain Xarelto Monitor closely 10/15/2020: Low-grade fever we will monitor closely Labs normal today 10/16/2020: Supportive care Monitor for fever 10/17/2020: Improved status Supportive care Pain control 10/18/2020: Supportive care Anticoagulation BiPAP at night 10/19/2020: Supportive care Encouraged her progress 10/20/20: Monitor closely Pain control 10/21/2020: Monitor closely Supportive care 10/22/2020: Supportive care Discharge plan on Thursday (1) Closed intertrochanteric fracture of left hip Status: Acute Discharge Summary Discharge Physical Examination Allergies: Coded Allergies: No Known Drug Allergies (Unverified , 02/04/17) Vitals & I&Os Vital Signs Date Time Temp Pulse Resp B/P (MAP) Pulse Ox O2 Delivery O2 Flow Rate FiO2 10/23/20 11:27 36.2 88 14 112/58 97 Room Air General Appearance: Alert, Oriented X3, Cooperative Respiratory: Clear to Auscultation Cardiovascular: Regular Rate Psych/Mental Status: Mental Status NL Hospital Course Was the Problem List Reviewed?: Yes Hospital Course: Pt had an uneventful 12 days hospital course. She was transferred from [facility] after left hip fracture repair. She did well, maintained on her regular dose of Xarelto. BiPAP was used at night. She did well with therapy and was deemed stable for discharge to [place] with PT and OT and home health. Labs (last 24 hrs) Laboratory Tests 10/12/20 06:24: White Blood Count 5.4, Red Blood Count 3.26L, Hemoglobin 9.9L, Hematocrit 31L, Mean Corpuscular Volume 95, Mean Corpuscular Hemoglobin 30, Mean Corpuscular Hemoglobin Concent 32, Red Cell Distribution Width 16.2H, Platelet Count 177, Mean Platelet Volume 10.1, Immature Granulocyte % (Auto) 1, Neutrophils (%) (Auto) 73, Lymphocytes (%) (Auto) 16, Monocytes (%) (Auto) 8, Eosinophils (%) (Auto) 1, Basophils (%) (Auto) 0, Neutrophils # (Auto) 3.9, Lymphocytes # (Auto) 0.9L, Monocytes # (Auto) 0.5, Eosinophils # (Auto) 0.1, Basophils # (Auto) 0.0, Immature Granulocyte # (Auto) 0.1, Sodium Level 137, Potassium Level 3.5L, Chloride Level 102, Carbon Dioxide Level 27, Anion Gap 8, Blood Urea Nitrogen 12, Creatinine 0.65, Estimat Glomerular Filtration Rate 87, BUN/Creatinine Ratio 18, Glucose Level 142H, Calcium Level 9.0, Corrected Calcium 9.7, Total Bilirubin 1.1H, Aspartate Amino Transf (AST/SGOT) 33, Alanine Aminotransferase (ALT/SGPT) 25, Alkaline Phosphatase 87, Total Protein 5.7L, Albumin 3.1L 10/15/20 05:27: White Blood Count 6.8, Red Blood Count 2.81L, Hemoglobin 8.7L, Hematocrit 28L, Mean Corpuscular Volume 101H, Mean Corpuscular Hemoglobin 31, Mean Corpuscular Hemoglobin Concent 31L, Red Cell Distribution Width 16.3H, Platelet Count 236, Mean Platelet Volume 9.9, Immature Granulocyte % (Auto) 1, Neutrophils (%) (Auto) 75, Lymphocytes (%) (Auto) 14, Monocytes (%) (Auto) 9, Eosinophils (%) (Auto) 1, Basophils (%) (Auto) 0, Neutrophils # (Auto) 5.0, Lymphocytes # (Auto) 1.0, Monocytes # (Auto) 0.6, Eosinophils # (Auto) 0.1, Basophils # (Auto) 0.0, Immature Granulocyte # (Auto) 0.1, Sodium Level 136, Potassium Level 3.8, Chloride Level 101, Carbon Dioxide Level 29, Anion Gap 6, Blood Urea Nitrogen 15, Creatinine 0.60, Estimat Glomerular Filtration Rate 95, BUN/Creatinine Ratio 25, Glucose Level 135H, Calcium Level 8.8, Corrected Calcium 9.8, Total Bilirubin 1.3H, Aspartate Amino Transf (AST/SGOT) 20, Alanine Aminotransferase (ALT/SGPT) 18, Alkaline Phosphatase 80, Total Protein 5.4L, Albumin 2.8L 10/22/20 05:23: White Blood Count 5.0, Red Blood Count 3.28L, Hemoglobin 9.8L, Hematocrit 33L, Mean Corpuscular Volume 102H, Mean Corpuscular Hemoglobin 30, Mean Corpuscular Hemoglobin Concent 29L, Red Cell Distribution Width 17.9H, Platelet Count 379, Mean Platelet Volume 9.6, Immature Granulocyte % (Auto) 1, Neutrophils (%) (Auto) 60, Lymphocytes (%) (Auto) 25, Monocytes (%) (Auto) 11, Eosinophils (%) (Auto) 3, Basophils (%) (Auto) 1, Neutrophils # (Auto) 3.0, Lymphocytes # (Auto) 1.3, Monocytes # (Auto) 0.5, Eosinophils # (Auto) 0.1, Basophils # (Auto) 0.0, Immature Granulocyte # (Auto) 0.0, Sodium Level 137, Potassium Level 4.1, Chloride Level 102, Carbon Dioxide Level 28, Anion Gap 7, Blood Urea Nitrogen 21H, Creatinine 0.69, Estimat Glomerular Filtration Rate 81, BUN/Creatinine Ratio 30, Glucose Level 107H, Calcium Level 9.4, Corrected Calcium 10.1, Total Bilirubin 0.9, Aspartate Amino Transf (AST/SGOT) 20, Alanine Aminotransferase (ALT/SGPT) 23, Alkaline Phosphatase 179H, Total Protein 6.2L, Albumin 3.1L Pending Labs Laboratory Tests 10/12/20 06:24: White Blood Count 5.4, Red Blood Count 3.26, Hemoglobin 9.9, Hematocrit 31, Mean Corpuscular Volume 95, Mean Corpuscular Hemoglobin 30, Mean Corpuscular Hemoglobin Concent 32, Red Cell Distribution Width 16.2, Platelet Count 177, Mean Platelet Volume 10.1, Immature Granulocyte % (Auto) 1, Neutrophils (%) (Auto) 73, Lymphocytes (%) (Auto) 16, Monocytes (%) (Auto) 8, Eosinophils (%) (Auto) 1, Basophils (%) (Auto) 0, Neutrophils # (Auto) 3.9, Lymphocytes # (Auto) 0.9, Monocytes # (Auto) 0.5, Eosinophils # (Auto) 0.1, Basophils # (Auto) 0.0, Immature Granulocyte # (Auto) 0.1, Sodium Level 137, Potassium Level 3.5, Chloride Level 102, Carbon Dioxide Level 27, Anion Gap 8, Blood Urea Nitrogen 12, Creatinine 0.65, Estimat Glomerular Filtration Rate 87, BUN/Creatinine Ratio 18, Glucose Level 142, Calcium Level 9.0, Corrected Calcium 9.7, Total Bilirubin 1.1, Aspartate Amino Transf (AST/SGOT) 33, Alanine Aminotransferase (ALT/SGPT) 25, Alkaline Phosphatase 87, Total Protein 5.7, Albumin 3.1 10/15/20 05:27: White Blood Count 6.8, Red Blood Count 2.81, Hemoglobin 8.7, Hematocrit 28, Mean Corpuscular Volume 101, Mean Corpuscular Hemoglobin 31, Mean Corpuscular Hemoglobin Concent 31, Red Cell Distribution Width 16.3, Platelet Count 236, Mean Platelet Volume 9.9, Immature Granulocyte % (Auto) 1, Neutrophils (%) (Auto) 75, Lymphocytes (%) (Auto) 14, Monocytes (%) (Auto) 9, Eosinophils (%) (Auto) 1, Basophils (%) (Auto) 0, Neutrophils # (Auto) 5.0, Lymphocytes # (Auto) 1.0, Monocytes # (Auto) 0.6, Eosinophils # (Auto) 0.1, Basophils # (Auto) 0.0, Immature Granulocyte # (Auto) 0.1, Sodium Level 136, Potassium Level 3.8, Chloride Level 101, Carbon Dioxide Level 29, Anion Gap 6, Blood Urea Nitrogen 15, Creatinine 0.60, Estimat Glomerular Filtration Rate 95, BUN/Creatinine Ratio 25, Glucose Level 135, Calcium Level 8.8, Corrected Calcium 9.8, Total Bilirubin 1.3, Aspartate Amino Transf (AST/SGOT) 20, Alanine Aminotransferase (ALT/SGPT) 18, Alkaline Phosphatase 80, Total Protein 5.4, Albumin 2.8 10/22/20 05:23: White Blood Count 5.0, Red Blood Count 3.28, Hemoglobin 9.8, Hematocrit 33, Mean Corpuscular Volume 102, Mean Corpuscular Hemoglobin 30, Mean Corpuscular Hemoglobin Concent 29, Red Cell Distribution Width 17.9, Platelet Count 379, Mean Platelet Volume 9.6, Immature Granulocyte % (Auto) 1, Neutrophils (%) (Auto) 60, Lymphocytes (%) (Auto) 25, Monocytes (%) (Auto) 11, Eosinophils (%) (Auto) 3, Basophils (%) (Auto) 1, Neutrophils # (Auto) 3.0, Lymphocytes # (Auto) 1.3, Monocytes # (Auto) 0.5, Eosinophils # (Auto) 0.1, Basophils # (Auto) 0.0, Immature Granulocyte # (Auto) 0.0, Sodium Level 137, Potassium Level 4.1, Chloride Level 102, Carbon Dioxide Level 28, Anion Gap 7, Blood Urea Nitrogen 2 1, Creatinine 0.69, Estimat Glomerular Filtration Rate 81, BUN/Creatinine Ratio 30, Glucose Level 107, Calcium Level 9.4, Corrected Calcium 10.1, Total Bilirubin 0.9, Aspartate Amino Transf (AST/SGOT) 20, Alanine Aminotransferase (ALT/SGPT) 23, Alkaline Phosphatase 179, Total Protein 6.2, Albumin 3.1 Discharge Home Medications: Active Scripts Active Stool Softener-Laxative Tablet (Sennosides/Docusate Sodium) 1 Each Tablet 1 Ea PO BID Polyethylene Glycol 3350 17 Gm Powd.pack 17 Gm PO BID Dok (Docusate Sodium) 100 Mg Capsule 100 Mg PO BID Lactulose 20 Gm/30 Ml Solution 10 Gm PO BID PRN Imipramine HCl 25 Mg Tablet 25 Mg PO HS Tramadol HCl 50 Mg Tablet 50 Mg PO TID PRN Reported Gas Relief (Simethicone) 125 Mg Tab.chew 125-250 Mg PO BID PRN Tylenol Extra Strength (Acetaminophen) 500 Mg Tablet 500-1,000 Mg PO Q6H PRN Melatonin 3 Mg Tablet 3 Mg PO HS Venlafaxine HCl ER (Venlafaxine HCl) 75 Mg Cap.er.24h 150 Mg PO DAILY TAKES 2 (75MG) CAPS Xarelto (Rivaroxaban) 20 Mg Tablet 20 Mg PO DAILY Omeprazole 20 Mg Capsule.dr 20 Mg PO 0700,1600 Instructions to patient/family Please see electronic discharge instructions given to patient. Diagnosis/Problems Diagnosis/Problems (1) Closed intertrochanteric fracture of left hip Status: Acute DUNG KEYS DO Oct 23, 2020 05:47
[2020-10-23] MEDS: PANTOPRAZOLE 20 MG TABLET (PROTONIX) PO SCH (06:25)
[2020-10-23 07:29] VITALS: BP 131/81
[2020-10-23 07:30] VITALS: BP 112/58
--- NOTE | 2020-10-23 08:58 | Occupational Ther Daily Note ---
OT Current Status-Daily Note Subjective Pt. alert in bed finishing breakfast. Pt. pleasant, agrees to therapy. No c/o pain. Mental Status/Objective Patient Orientation: Person, Place, Time ADL-Treatment Pt agrees to shower. Pt. SBA supine to sit EOB with few verbal cues to initiate task. Pt. ambulated using FWW bed to closet. Pt. was able to gather clothes using FWW and retrieve from closet by self, safety concerns due to initiating sequence tasks. Pt. ambulated using FWW to bathroom to perform toileting, Pt. doffed brief and pants with no verbal cues, required grabbars to steady. Pt able to manipulate clothing down over hips by self then after cleansing self pt began ambulating lacking awareness of clothing around knees verbal cues required to manipulate clothing. Pt. ambulated to sink with FWW to stand at sink to wash hands and perform oral hygiene independently. Pt. ambulated to shower using grabbars to steady while doffing pants/brief/socks. Pt. sat on shower bench after verbal cue to doff UE dressing in sitting. Pt. inquired if OTAS was ready to start the shower, OTAS agreed and Pt. initiated, safety concerns due to initiating task. Pt. cleansed arms, chest, abdomen, both upper/lower legs, gil/buttocks area, and toes independently. Pt. stood in shower to cleanse gil/buttocks area and rinse using grabbars to stabilize. Pt. sat down to finish rinsing/drying self. Pt. moved with FWW to toilet to don clothes. Pt. donned UE dressing requiring one verbal cue about shirt positioning. Pt. required a few more verbal cues for LE dressing task, used aquatic habitat biologist aiding threading of feet. Pt. ambulated with FWW to bed. Pt used aquatic habitat biologist to retrieve shoes and slipped on independently. Pt. left with call light/phone in reach, all needs met in room. Therapy Code Descriptions/Definitions Functional [place] Measure: 0=Not Assessed/NA 4=Minimal Assistance 1=Total Assistance 5=Supervision or Setup 2=Maximal Assistance 6=Modified [place] 3=Moderate Assistance 7=Complete IndependenceSCALE: Activities may be completed with or without assistive devices. 7-Sbgottncdv-epzihey completes the activity by him/herself with no assistance from a helper. 5-Set-up or Clean-up Assistance-helper sets up or cleans up; patient completes activity. [place] assists only prior to or following the activity. 4-Supervision or Touching Assistance-helper provides verbal cues and/or touching/steadying and/or contact guard assistance as patient completes activity. Assistance may be provided throughout the activity or intermittently. 3-Partial/Moderate Assistance-helper does LESS THAN HALF the effort. [place] lifts, holds or supports trunk or limbs, but provides less than half the effort. 2-Substantial/Maximal Assistance-helper does MORE THAN HALF the effort. [place] lifts or holds trunk or limbs and provides more than half the effort. 3-Xqndavxdj-igahxo does ALL the effort. Patient does none of the effort to complete the activity. Or, the assistance of 2 or more helpers is required for the patient to complete the activity. If activity was not attempted, code reason: 7-Patient Refused. 9-Not Applicable-not attempted and the patient did not perform the activity before the current illness, exacerbation or injury. 10-Not Attempted due to Environmental Limitations-(lack of equipment, weather restraints, etc.). 88-Not Attempted due to Medical Conditions or Safety Concerns. Eating (QC): 6 Oral Hygiene (QC): 6 Bathing Location: L Arm, R Arm, L Upper Leg, R Upper Leg, L Lower Leg (including foot), R Lower Leg (including foot), Chest, Abdomen, Buttocks, Perineal Area Shower/Bathe Self (QC): 5 Upper Body Dressing (QC): 4 (verbal cues required) Lower Body Dressing (QC): 4 (verbal cues required) On/Off Footwear: 6 Toileting Hygiene (QC): 4 (verbal cues required) Toilet Transfer (QC): 6 OT Short Term Goals Short Term Goals Time Frame: Oct 18, 2020 Eatin Oral hygiene: 5 Toileting hygiene: 4 Shower/bathe self: 4 Upper body dressin Lower body dressin Putting on/taking off footwear: 4 OT Guide Travel Goals Guide Travel Goals Time Frame: Oct 22, 2020 Eating (QC): 6 (met) Oral Hygiene (QC): 6 (met) Toileting Hygiene (QC): 6 (not met. SBA with verbal cues) Shower/Bathe Self (QC): 5 (met) Upper Body Dressing (QC): 6 (not met) Lower Body Dressing (QC): 6 (not met) On/Off Footwear (QC): 6 (met) 1=Demonstrate adherence to instructed precautions during ADL tasks. 2=Patient will verbalize/demonstrate understanding of assistive devices/modifications for ADL. 3=Patient will improve strength/tolerance for activity to enable patient to perform ADL's. OT Education/Plan Problem List/Assessment Assessment: Decreased Safety Aware, Impaired Self-Care Skills Discharge Recommendations Plan/Recommendations: Discharge/Goals Met ([facility]([place])) Comment Safety concerns with initiating tasks and sequencing. Treatment Plan/Plan of Care Patient would benefit from OT for education, treatment and training to promote independence in ADL's, mobility, safety and/or upper extremity function for ADL's. Plan of Care: ADL Retraining, Functional Mobility, Group Exercise/Act as Ind, UE Funct Exercise/Act Treatment Duration: Oct 22, 2020 Frequency: At least 5 of 7 days/Wk (IRF) Estimated Hrs Per Day: 1.5 hours per day Agreement: Yes Rehab Potential: Good Time/GCodes Start Time: 07:30 Stop Time: 09:00 Total Time Billed (hr/min): 90 Billed Treatment Time 1 visit- ADL 6 (90 minutes) KEITH GRANADOS Oct 23, 2020 08:57
[2020-10-23] MEDS: VENlafaxine XR 75 MG (EFFEXOR XR) CAP PO SCH (09:00)
[2020-10-23] MEDS: RIVAROXABAN 20 MG TABLET (XARELTO) PO SCH (09:00)
[2020-10-23] MEDS: SENNA W/DOCUSATE (SENOKOT S) TABLET PO SCH (09:01)
[2020-10-23] MEDS: DOCUSATE SODIUM 100 MG (COLACE) CAP PO SCH (09:01)
[2020-10-23] MEDS: polyethylene glycoL POWDER 17 GM (MIRALAX) PACK PO SCH (09:01)
--- NOTE | 2020-10-23 10:10 | Progress Note - Urology ---
Progress Note-Urology Progress Notes/Assess & Plan Progress/Assessment & Plan DOING WELL ON TOFRANIL 25 AT HS. TOLERATED WELL. GOING HOME TODAY. KEEP ON IT AND SEE HER PRN Final Diagnosis NOCTURNAL ENURESIS BC WEATHERS MD Oct 23, 2020 10:10
[2020-10-23 11:27] VITALS: BP 112/58
--- NOTE | 2020-10-23 15:03 | Therapy Team Discharge Summary ---
Therapy Discharge Summary Discharge Recommendations Date of Discharge Oct 23, 2020 at 11:00 Physical Therapy Patient came to rehab with Left Femur fracture with IM nail. Upon evaluation patient performed bed mobility and transfers with min assist, car transfer max assist, ambulated 70' with a rolling walker with CGA (including 50' with at least 2 turns of 90 degrees and 10' over an uneven surface), and propelled a manual WC 150' with SBA. Patient has been performing bed mobility and transfer training, balance and endurance training, functional strengthening, stair t raining, gait training, and education. 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 Now, patient performs bed mobility and supine <-> sit with independence, sit <-> stand and transfers with setup, toilet transfer min assist, car transfer setup, ambulates 150' with a rolling walker with setup (including 50' with at least 2 turns of 90 degrees but needs CGA for 10' over an uneven surface), can transmission superintendent an object from the floor with setup, and can go up and down 4 steps using 2 handrails with CGA. Patient was discharged from this facility today and will be discharged from PT at this time. Occupational Therapy Decreased Safety Aware, Impaired Self-Care Skills PT Residential Goals Tableau Administrator Goals PT Tableau Administrator Goals Time Frame: Nov 08, 2020 Roll Left to Right (QC): 6 Sit to Lying (QC): 6 Lying-Sitting on Side/Bed(QC): 6 Sit to Stand (QC): 6 Chair/Gqo-kn-Qkogw Xfer(QC): 6 Car Transfer (QC): 6 Does the Patient Walk: Yes Walk 10 feet (QC): 6 Walk 10ft-Uneven Surface(QC): 6 Walk 50ft with 2 Turns (QC): 6 Walk 150 ft (QC): 6 Does the Pt use WC or Scooter?: No Wheel 50 feet with 2 turns (QC: 6 1 Step (curb) (QC): 6 4 Steps (QC): 6 12 Steps (QC): 6 Picking up an Object (QC): 6 OT Tableau Administrator Goals Residential Goals Time Frame: Oct 22, 2020 Eating (FIM): 6 Eating (QC): 6 (met) Oral Hygiene (QC): 6 (met) Shower/Bathe Self (QC): 5 (met) Upper Body Dressing (QC): 6 (not met) Lower Body Dressing (QC): 6 (not met) On/Off Footwear (QC): 6 (met) Toileting(FIM): 6 Toileting Hygiene (QC): 6 (not met. SBA with verbal cues) Toilet/Commode Transfer (QC): 6 1=Demonstrate adherence to instructed precautions during ADL tasks. 2=Patient will verbalize/demonstrate understanding of assistive devices/modifi cations for ADL. 3=Patient will improve strength/tolerance for activity to enable patient to perform ADL's. ANNAMARIA GARCIA PT Oct 23, 2020 15:03
--- NOTE | 2020-10-24 14:46 | Therapy Team Discharge Summary ---
Therapy Discharge Summary Discharge Recommendations Date of Discharge Oct 23, 2020 at 11:00 Occupational Therapy Pt arrived to Unit 10[facility]20 from [facility]. She was admitted to [facility] following an unwitnessed fall while ambulating to her bathroom at her LTC facility ([place]). She was indep with ADLs prior to admission and the facility performed all IADLs. At time of ARU eval, pt was min-mod a for bathing, ub dressing, lb dressing, toileting, and donning socks/shoes. She was SBA for UB dressing and oral care. While in rehab, OT focused on increasing indep with ADLs and functional transfers while promoting increased balance, safety, initiation, endurance, and coordination. Pt met all of her goals except upper body dressing, lb dressing and toileting as pt requires verbal cues for safety, sequencing and correct orientation. pt discharged from this facility and from OT. Decreased Safety Aware, Impaired Cognition, Impaired Self-Care Skills PT Letter Of Credit Document Examiner Goals Skilled Nursing Goals PT Skilled Nursing Goals Time Frame: Nov 08, 2020 Roll Left to Right (QC): 6 Sit to Lying (QC): 6 Lying-Sitting on Side/Bed(QC): 6 Sit to Stand (QC): 6 Chair/Uvu-oa-Jdlsu Xfer(QC): 6 Car Transfer (QC): 6 Does the Patient Walk: Yes Walk 10 feet (QC): 6 Walk 10ft-Uneven Surface(QC): 6 Walk 50ft with 2 Turns (QC): 6 Walk 150 ft (QC): 6 Does the Pt use WC or Scooter?: No Wheel 50 feet with 2 turns (QC: 6 1 Step (curb) (QC): 6 4 Steps (QC): 6 12 Steps (QC): 6 Picking up an Object (QC): 6 OT Skilled Nursing Goals Letter Of Credit Document Examiner Goals Time Frame: Oct 22, 2020 Eating (FIM): 6 Eating (QC): 6 (met) Oral Hygiene (QC): 6 (met) Shower/Bathe Self (QC): 5 (met) Upper Body Dressing (QC): 6 (not met) Lower Body Dressing (QC): 6 (not met) On/Off Footwear (QC): 6 (met) Toileting(FIM): 6 Toileting Hygiene (QC): 6 (not met. SBA with verbal cues) Toilet/Commode Transfer (QC): 6 1=Demonstrate adherence to instructed precautions during ADL tasks. 2=Patient will verbalize/demonstrate understanding of assistive devices/modifications for ADL. 3=Patient will improve strength/tolerance for activity to enable patient to perform ADL's. Genoveva Mccloud OT Oct 24, 2020 14:46
== END 2020-10-23 11:00 | disposition home health service (06) | DRG 560 ==
PROVIDERS: ADMIT Internal Medicine; ATTEND Internal Medicine
DX: S72.142D Displaced intertrochanteric fracture of left femur, subsequent encounter for closed fracture with routine healing (principal); D62 Acute posthemorrhagic anemia; I69.354 Hemiplegia and hemiparesis following cerebral infarction affecting left non-dominant side; R41.89 Other symptoms and signs involving cognitive functions and awareness; I69.398 Other sequelae of cerebral infarction; H53.8 Other visual disturbances; K21.9 Gastro-esophageal reflux disease without esophagitis; M19.91 Primary osteoarthritis, unspecified site; H54.3 Unqualified visual loss, both eyes; H91.93 Unspecified hearing loss, bilateral; G47.33 Obstructive sleep apnea (adult) (pediatric); K58.9 Irritable bowel syndrome, unspecified; G25.81 Restless legs syndrome; I87.2 Venous insufficiency (chronic) (peripheral); N39.44 Nocturnal enuresis; Z79.01 Long term (current) use of anticoagulants; Z97.4 Presence of external hearing-aid; Z96.21 Cochlear implant status; Z86.711 Personal history of pulmonary embolism; Z95.2 Presence of prosthetic heart valve; Z82.49 Family history of ischemic heart disease and other diseases of the circulatory system
CPT/HCPCS: 36415; 80053; 85025

== ENCOUNTER 2021-02-05 16:39 | Emergency (ER) | payer MEDICARE ==
[~2021-02-05] VITALS: Ht 157 cm; Wt 62.5 kg
[~2021-02-05 16:39] MED LIST changes: +ACET-2267 PO; -ALPRAZolam 0.25 MG (XANAX) TAB PO PRN; -BISACODYL 10 MG SUPP (DULCOLAX) PR PRN; -CALCIUM CARBONATE 500 MG (TUMS) TAB.CHEW PO PRN; +CIPR-225 PO; +DOCU-239 PO; +DOCU100C37 PO; -DOCUSATE SODIUM 100 MG (COLACE) CAP PO PRN; +IMIP25TA4 PO; +LACT20SO2 PO; -LACTULOSE SYRUP 10GM/15ML (ENULOSE) 30ML UDC PO PRN; -LOPERAMIDE 2 MG (IMODIUM) TABLET PO PRN; +MELA3TAB39 PO; -MELATONIN 3 MG TABLET PO PRN; -ONDANSETRON 4 MG (ZOFRAN) ORAL DISSOLVE TAB PO PRN; +POLY17PO54 PO; +POLY17PO6 PO; +SENN1TAB76 PO; +SIME125T59 PO; +TRAM50TA3 PO; +TRM50T PO; +VENL75CA93 PO; -diphenhydrAMINE 25 MG TAB (BENADRYL) PO PRN; -guaiFENesin/CODEINE (ROBITUSSIN AC) 10ML UDC PO PRN
--- NOTE | 2021-02-05 16:55 | ED Hip Pain/Injury ---
General Chief Complaint: Hip/Pelvic Problems Stated Complaint: FALL - L HIP PAIN Source: patient Exam Limitations: no limitations History of Present Illness Date Seen by Provider: Feb 05, 2021 Time Seen by Provider: 16:54 Initial Comments By EMS from home with reports of left hip pain after a fall. She was standing next to her walker and attempted to move to get out of someone's road when she fell landing on the left hip. She had left hip replacement in September of this year. She was able to bear weight on this and ambulate over to her chair. She has some pain in the low back and pelvis. Timing/Duration: constant Severity: moderate Location: hip (L), pelvis Method of Injury: fell Associated Symptoms: denies symptoms Allergies and Home Medications Allergies Coded Allergies: No Known Drug Allergies (Unverified , 02/04/17) Patient Home Medication List Home Medication List Reviewed: Yes Acetaminophen (Tylenol Extra Strength) 500 Mg Tablet, 500-1,000 MG PO Q6H PRN for PAIN-MILD (1-4), (Reported) Entered as Reported by: ANASTASIIA RHOADES on 10/16/20 1543 Docusate Sodium (Dok) 100 Mg Capsule, 100 MG PO BID Prescribed by: DUNG KEYS on 10/22/201740 Imipramine HCl (Imipramine HCl) 25 Mg Tablet, 25 MG PO HS Prescribed by: DUNG KEYS on 10/22/201740 Lactulose (Lactulose) 20 Gm/30 Ml Solution, 10 GM PO BID PRN for CONSTIPATION- 2ND LINE Prescribed by: DUNG KEYS on 10/22/201740 Melatonin (Melatonin) 3 Mg Tablet, 3 MG PO HS, (Reported) Entered as Reported by: ANASTASIIA RHOADES on 10/11/20 121 Omeprazole (Omeprazole) 20 Mg Capsule.dr, 20 MG PO 0700,1600, (Reported) Entered as Reported by: MONTY HAMM on 02/04/17 1248 Polyethylene Glycol 3350 (Polyethylene Glycol 3350) 17 Gm Powd.pack, 17 GM PO BID Prescribed by: DUNG KEYS on 10/22/201740 Rivaroxaban (Xarelto) 20 Mg Tablet, 20 MG PO DAILY, (Reported) Entered as Reported by: ANASTASIIA RHOADES on 10/11/20 1210 Sennosides/Docusate Sodium (Stool Softener-Laxative Tablet) 1 Each Tablet, 1 EA PO BID Prescribed by: DUNG KEYS on 10/22/20 1741 Simethicone (Gas Relief) 125 Mg Tab.chew, 125-250 MG PO BID PRN for INDIGESTION, (Reported) Entered as Reported by: ANASTASIIA RHOADES on 10/16/20 1543 Tramadol HCl (Tramadol HCl) 50 Mg Tablet, 50 MG PO TID PRN for PAIN-MODERATE (5- 7) Prescribed by: DUNG KEYS on 10/22/20 1741 Tramadol HCl (Ultram) 50 Mg Tablet, 50 MG PO Q6H PRN for PAIN-MODERATE (5-7) Prescribed by: EMIR XIAO on 02/05/21 1755 Venlafaxine HCl (Venlafaxine HCl ER) 75 Mg Cap.er.24h, 150 MG PO DAILY, (Reported) Entered as Reported by: ANASTASIIA RHOADES on 10/11/20 1210 Review of Systems Constitutional: see HPI EENTM: see HPI Respiratory: no symptoms reported Cardiovascular: no symptoms reported Genitourinary: no symptoms reported Musculoskeletal: see HPI Skin: no symptoms reported Psychiatric/Neurological: No Symptoms Reported Past Egxkphb-Yzcwwi-Ffsavf Hx Immunizations Up To Date PED Vaccines UTD: Yes Seasonal Allergies Seasonal Allergies: No Past Medical History Surgeries: Yes (SEE BELOW) Abdominal, Cardiac, Ear Surgery, Gallbladder, Joint Replacement, Orthopedic Respiratory: Yes (MASSIVE BILAT SADDLE EMBOLI/PE 04/2017-ON VENT/NOW HOME O2 AT HS) Pneumonia, Pulmonary Embolism, Sleep Apnea Currently Using CPAP: No Currently Using BIPAP: Yes Cardiac: Yes (AORTIC STENOSIS - dx 2012;CAROTID DISEASE;) Chronic Edema/Swelling, Peripheral Vascular, Valvular Heart Disease Neurological: Yes (RESTLESS LEG) Stroke 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 Disorders: No Female 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 Disorders: Denies 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 Sexually Transmitted Disease: No HIV/AIDS: No Genitourinary: No Gastrointestinal: Yes Abdominal Hernia, Gastroesophageal Reflux, Hiatal Hernia, Irritable Bowel Musculoskeletal: Yes (RIGHT HIP REPLACEMENT) Arthritis, Chronic Back Pain Endocrine: No HEENT: Yes (RT COCHLEAR IMPLANT/HEARING AID LEFT) Cataract 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, Bilateral Hearing Aide Cancer: No Psychosocial: Yes Sleep Difficulties Integumentary: No Blood Disorders: No Adverse Reaction/Blood Tranf: No Family Medical History Diabetes mellitus 19 FATHER 19 MOTHER FH: heart disease 19 MOTHER FH: muscular dystrophy G8 BROTHER (Friedreich's Ataxia) Hypertension Myocardial infarction 19 MOTHER No Pertinent Family Hx PAST SURGICAL HISTORY: -RIGHT COCHLEAR IMPLANT -HERNIA REPAIR -CHOLECYSTECTOMY -EGD/COLONOSCOPY -LUMBAR EPIDURAL STEROID INJECTIONS -RIGHT HIP REPLACEMENT 02/05/2017 -CARDIAC CATH 2012-NO SIGNFICANT CAD, NO INTERVENTION -CARDIAC CATH 12/27/2019--NO SIGNFICANT CAD. AORTIC STENOSIS/NEED FOR VALVE REPLACEMENT; NO INTERVENTION. EF 55-65%. DONE BY DR. ELLISON Physical Exam Vital Signs Vital Signs - First Documented 02/05/21 16:40 Temp 36.6 Pulse 84 Resp 18 B/P (MAP) 162/72 (102) Pulse Ox 98 Capillary Refill : Height, Weight, BMI Height: 5'3.00" Weight: 174lbs. 12.8oz. 79.073601ow; 24.21 BMI Method:Stated General Appearance: No Apparent Distress, WD/WN Neck: Full Range of Motion, Normal Inspection Respiratory: Lungs Clear, Normal Breath Sounds, No Accessory Muscle Use, No Respiratory Distress Gastrointestinal: Normal Bowel Sounds, Non Tender, Soft Extremity: Normal Capillary Refill, Normal Inspection Neurologic/Psychiatric: Alert, Oriented x3 Skin: Normal Color, Warm/Dry Progress/Results/Core Measures Results/Orders My Orders Orders - EMIR XIAO APRN Ct Head/Cervical Spine Wo (02/05/21 16:51) Ct Lumbar Spine Wo (02/05/21 16:51) Pelvis (02/05/21 16:51) Rx-Tramadol Hcl (Rx-Ultram) (02/05/21 17:51) Vital Signs/I&O 02/05/21 16:40 Temp 36.6 Pulse 84 Resp 18 B/P (MAP) 162/72 (102) Pulse Ox 98 Departure Communication (Admissions) Family Conversation NAME: MOHSEN ALANIS MED REC#: [id number] PT STATUS: REG ER : 1935 PHYSICIAN: EMIR XIAO APRN ADMIT DATE: 02/05/21/ER Draft Date of Exam:02/05/21 PELVIS INDICATION: Fall with left hip pain. TIME OF EXAM: 5:18 PM CORRELATION is made with prior radiographs from 10/06/2020. Intramedullary liz and compression screw transfixes the left hip. A large fragment from the lesser trochanter is again noted. No new fracture is seen. Rami are intact. There are postoperative changes to the right hip. IMPRESSION: Postoperative changes to bilateral hips. No new hip fracture is detected. Dictated on workstation # [id number] Dict: 02/05/211715 Trans: 02/05/211720 [facility] [id number] Interpreted by: ALLEGRA SANCHES MD Electronically signed by: NAME: MOHSEN ALANIS [facility] REC#: [id number] PT STATUS: REG ER : 1935 PHYSICIAN: EMIR XIAO APRN ADMIT DATE: 02/05/21/ER Draft Date of Exam:02/05/21 CT LUMBAR SPINE WO PROCEDURE: CT lumbar spine without contrast. TECHNIQUE: Multiple contiguous axial images were obtained through the lumbar spine without the use of intravenous contrast. Sagittal and coronal reformations were then performed. Auto Exposure Controls were utilized during the CT exam to meet ALARA standards for radiation dose reduction. INDICATION: Back injury, fall. COMPARISON: None available. FINDINGS: Diffuse osseous demineralization is present. No acute fracture within the lumbar spine. There is an acute nondisplaced fracture within the left sacral ala. No high-grade spinal stenosis. No features of retroperitoneal hemorrhage. Paravertebral musculature is normal. IMPRESSION: 1. Acute nondisplaced fracture in the left sacral ala. 2. No acute fracture within the lumbar spine. Dictated on workstation # [id number] Dict: 02/05/211709 Trans: 02/05/211720 [facility] [id number] Interpreted by: SIMON ELIZONDO MD Electronically signed by: Impression Primary Impression: Sacral ala fracture Disposition: 01 HOME, SELF-CARE Condition: Stable Departure-Patient Inst. Decision time for Depature: 17:53 Referrals: DUNG KEYS DO (PCP/Family) Primary Care Physician Patient Instructions: Fracture (DC) Add. Discharge Instructions: 1. Call Dr. eKys's office tomorrow to report symptoms. Pain medication as directed. Return to ER for any concerns. All discharge instructions reviewed with patient and/or family. Voiced understanding. Scripts Tramadol HCl (Ultram) 50 Mg Tablet 50 MG PO Q6H PRN for PAIN-MODERATE (5-7), #14 TAB Prov: EMIR XIAO APRN 02/05/21 Copy Copies To 1: DUNG KEYS PETER J APRN Feb 05, 2021 16:55
--- NOTE | 2021-02-05 17:12 | Diagnostic Imaging Report ---
PROCEDURE: CT head and CT cervical spine without contrast. TECHNIQUE: Multiple contiguous axial images were obtained through the brain and cervical spine without the use of intravenous contrast. Sagittal and coronal reformations through the cervical spine were then performed. Auto Exposure Controls were utilized during the CT exam to meet ALARA standards for radiation dose reduction. INDICATION: Fall with head and neck injury. COMPARISON: Correlation is made with prior CT from 10/07/2020. CT HEAD: Streak artifact from right-sided hearing device is again noted. There are areas of encephalomalacia in the right temporal and right frontoparietal lobes consistent with prior infarcts. Old infarct along the right nicole radiata is noted. Ventricular size and sulcal pattern appear stable. There is no midline shift. No acute intra-axial or extra-axial hemorrhage is identified. Cisterns are patent. Visualized paranasal sinuses are clear. IMPRESSION: Chronic changes. No acute intracranial process is detected. CT CERVICAL SPINE: Curvature and alignment of the cervical spine is normal. No fractures are identified. There is multilevel degenerative disc disease with variable disc space narrowing and marginal spurring, greatest at the C5-C6 level. There is multilevel facet arthropathy. Prevertebral tissues are normal. Odontoid is intact. IMPRESSION: Cervical spondylosis. No acute bony abnormality is detected. Dictated by: Dictated on workstation # [id number]
--- NOTE | 2021-02-05 17:21 | Diagnostic Imaging Report ---
INDICATION: Fall with left hip pain. TIME OF EXAM: 5:18 PM CORRELATION is made with prior radiographs from 10/06/2020. Intramedullary liz and compression screw transfixes the left hip. A large fragment from the lesser trochanter is again noted. No new fracture is seen. Rami are intact. There are postoperative changes to the right hip. IMPRESSION: Postoperative changes to bilateral hips. No new hip fracture is detected. Dictated by: Dictated on workstation # [id number]
--- NOTE | 2021-02-05 17:22 | Diagnostic Imaging Report ---
PROCEDURE: CT lumbar spine without contrast. TECHNIQUE: Multiple contiguous axial images were obtained through the lumbar spine without the use of intravenous contrast. Sagittal and coronal reformations were then performed. Auto Exposure Controls were utilized during the CT exam to meet ALARA standards for radiation dose reduction. INDICATION: Back injury, fall. COMPARISON: None available. FINDINGS: Diffuse osseous demineralization is present. No acute fracture within the lumbar spine. There is an acute nondisplaced fracture within the left sacral ala. No high-grade spinal stenosis. No features of retroperitoneal hemorrhage. Paravertebral musculature is normal. IMPRESSION: 1. Acute nondisplaced fracture in the left sacral ala. 2. No acute fracture within the lumbar spine. Dictated by: Dictated on workstation # [id number]
[2021-02-05] MEDS ORDERED: TRAM-42 PO (17:55)
[2021-02-05 18:29] VITALS: BP 149/79
== END 2021-02-05 18:29 | disposition home or self-care (01) ==
LOC: EDUNIT# 16:39 → ER 16:40
DX: S32.10XA Unspecified fracture of sacrum, initial encounter for closed fracture (principal)
CPT/HCPCS: 70450; 72125; 72131; 72170

== ENCOUNTER 2021-02-09 11:21 | Emergency (ER) | payer MEDICARE ==
[~2021-02-09] VITALS: Ht 157 cm; Wt 58.0 kg
[~2021-02-09 11:21] MED LIST changes: +TRAM-42 PO
[2021-02-09] MEDS ORDERED: HYDROcodone/APAP 5 MG/325 MG (LORTAB) TAB PO ONE (11:30)
--- NOTE | 2021-02-09 11:34 | ED Fall/Injury ---
General Chief Complaint: Trauma-Non Activation Stated Complaint: FALL Source: patient Exam Limitations: no limitations (EMIR XIAO APRN) History of Present Illness Date Seen by Provider: Feb 09, 2021 Time Seen by Provider: 11:32 Initial Comments to ER by EMS from [facility] in front [facility] assisted living where she r esides with reports of a recent fall. She was here on the of this month seen by me and diagnosed with an isolated left sacral ala fracture that was nondisplaced. She was given Ultram, pain is poorly controlled. She fell again today and wants to make sure she did not injure anything. She rates her pain at 8 out of 10. Very pleasant. Occurred: just prior to arrival Injuries/Pain Location: back Context: other Loss of Consciousness: no loss of consciousness Associated Symptoms (Fall): Denies Symptoms (EMIR XIAO APRN) Allergies and Home Medications Allergies Coded Allergies: No Known Drug Allergies (Unverified , 02/04/17) Patient Home Medication List Home Medication List Reviewed: Yes (EMIR XIAO APRN) Acetaminophen (Tylenol Extra Strength) 500 Mg Tablet, 500-1,000 MG PO Q6H PRN for PAIN-MILD (1-4), (Reported) Entered as Reported by: ANASTASIIA RHOADES on 10/16/20 1543 Docusate Sodium (Dok) 100 Mg Capsule, 100 MG PO BID Prescribed by: DUNG KEYS on 10/22/201740 Docusate Sodium (Colace) 100 Mg Capsule, 100 MG PO DAILY Prescribed by: EMIR XIAO on 02/09/21 1232 Hydrocodone/Acetaminophen (Hydrocodone-Acetamin 5-325 mg) 1 Each Tablet, 1 TAB PO Q6H PRN for PAIN-MODERATE (5-7) Prescribed by: EMIR XIAO on 02/09/21 1226 Imipramine HCl (Imipramine HCl) 25 Mg Tablet, 25 MG PO HS Prescribed by: DUNG KEYS on 10/22/20 174 Lactulose (Lactulose) 20 Gm/30 Ml Solution, 10 GM PO BID PRN for CONSTIPATION- 2ND LINE Prescribed by: DUNG KEYS on 10/22/20 174 Melatonin (Melatonin) 3 Mg Tablet, 3 MG PO HS, (Reported) Entered as Reported by: ANASTASIIA RHOADES on 10/11/20 1212 Omeprazole (Omeprazole) 20 Mg Capsule.dr, 20 MG PO 0700,1600, (Reported) Entered as Reported by: MONTY HAMM on 02/04/17 1248 Polyethylene Glycol 3350 (Polyethylene Glycol 3350) 17 Gm Powd.pack, 17 GM PO BID Prescribed by: DUNG KEYS on 10/22/20 174 Rivaroxaban (Xarelto) 20 Mg Tablet, 20 MG PO DAILY, (Reported) Entered as Reported by: ANASTASIIA RHOADES on 10/11/20 1210 Sennosides/Docusate Sodium (Stool Softener-Laxative Tablet) 1 Each Tablet, 1 EA PO BID Prescribed by: DUNG KEYS on 10/22/20 174 Simethicone (Gas Relief) 125 Mg Tab.chew, 125-250 MG PO BID PRN for INDIGESTION, (Reported) Entered as Reported by: ANASTASIIA RHOADES on 10/16/20 1543 Tramadol HCl (Tramadol HCl) 50 Mg Tablet, 50 MG PO TID PRN for PAIN-MODERATE (5- 7) Prescribed by: DUNG KEYS on 10/22/20 174 Tramadol HCl (Ultram) 50 Mg Tablet, 50 MG PO Q6H PRN for PAIN-MODERATE (5-7) Prescribed by: EMIR XIAO on 02/05/21 1755 Venlafaxine HCl (Venlafaxine HCl ER) 75 Mg Cap.er.24h, 150 MG PO DAILY, (Reported) Entered as Reported by: ANASTASIIA RHOADES on 10/11/20 1210 Review of Systems Review of Systems Constitutional: see HPI Eyes: No Symptoms Reported Ears, Nose, Mouth, Throat: no symptoms reported Respiratory: no symptoms reported Cardiovascular: no symptoms reported Genitourinary: no symptoms reported Musculoskeletal: see HPI, back pain Skin: no symptoms reported Psychiatric/Neurological: No Symptoms Reported (EMIR XIAO APRN) Past Jdqzmmx-Oanwkv-Cdkibz Hx Immunizations Up To Date PED Vaccines UTD: Yes (EMIR XIAO APRN) Seasonal Allergies Seasonal Allergies: No (EMIR XIAO APRN) Past Medical History Surgeries: Yes (SEE BELOW) Abdominal, Cardiac, Ear Surgery, Gallbladder, Joint Replacement, Orthopedic Respiratory: Yes (MASSIVE BILAT SADDLE EMBOLI/PE 04/2017-ON VENT/NOW HOME O2 AT HS) Pneumonia, Pulmonary Embolism, Sleep Apnea Currently Using CPAP: No Currently Using BIPAP: Yes Cardiac: Yes (AORTIC STENOSIS - dx 2012;CAROTID DISEASE;) Chronic Edema/Swelling, Peripheral Vascular, Valvular Heart Disease Neurological: Yes (RESTLESS LEG) Stroke 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 Disorders: No Female 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 Disorders: Denies 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 Sexually Transmitted Disease: No HIV/AIDS: No Genitourinary: No Gastrointestinal: Yes Abdominal Hernia, Gastroesophageal Reflux, Hiatal Hernia, Irritable Bowel Musculoskeletal: Yes (RIGHT HIP REPLACEMENT) Arthritis, Chronic Back Pain Endocrine: No HEENT: Yes (RT COCHLEAR IMPLANT/HEARING AID LEFT) Cataract 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, Bilateral Hearing Aide Cancer: No Psychosocial: Yes Sleep Difficulties Integumentary: No Blood Disorders: No Adverse Reaction/Blood Tranf: No (EMIR XIAO APRN) Family Medical History Diabetes mellitus 19 FATHER 19 MOTHER FH: heart disease 19 MOTHER FH: muscular dystrophy G8 BROTHER (Friedreich's Ataxia) Hypertension Myocardial infarction 19 MOTHER No Pertinent Family Hx PAST SURGICAL HISTORY: -RIGHT COCHLEAR IMPLANT -HERNIA REPAIR -CHOLECYSTECTOMY -EGD/COLONOSCOPY -LUMBAR EPIDURAL STEROID INJECTIONS -RIGHT HIP REPLACEMENT 02/05/2017 -CARDIAC CATH 2012-NO SIGNFICANT CAD, NO INTERVENTION -CARDIAC CATH 12/27/2019--NO SIGNFICANT CAD. AORTIC STENOSIS/NEED FOR VALVE REPLACEMENT; NO INTERVENTION. EF 55-65%. DONE BY DR. ELLISON (EMIR XIAO APRN) Physical Exam Vital Signs Vital Signs - First Documented 02/09/21 11:21 Temp 36.7 Pulse 88 Resp 20 B/P (MAP) 141/81 (101) Pulse Ox 96 (LIZZY,GAURANG K DO) Vital Signs Capillary Refill : (EMIR XIAO APRN) Height, Weight, BMI Height: 5'3.00" Weight: 174lbs. 12.8oz. 79.028798gw; 25.00 BMI Method:Stated General Appearance: WD/WN, no apparent distress HEENT: PERRL/EOMI, normal ENT inspection Respiratory: no respiratory distress, no accessory muscle use Gastrointestinal: normal bowel sounds, non tender Extremities: normal range of motion, non-tender Neurologic/Psychiatric: alert, normal mood/affect, oriented x 3 Skin: normal color, warm/dry (EMIR XIAO APRN) Jimena Coma Score Best Eye Response: (4) Open Spontaneously Best Verbal Response: (5) Oriented Best Motor Response: (6) Obeys Commands Jimena Total: 15 (EMIR XIAO APRN) Progress/Results/Core Measures Results/Orders Vital Signs/I&O 02/09/21 02/09/21 11:21 13:06 Temp 36.7 Pulse 88 84 Resp 20 20 B/P (MAP) 141/81 (101) 136/72 Pulse Ox 96 96 (ADELITA BALLA Nery DO) Departure Communication (Admissions) Family Conversation NAME: MOHSEN ALANIS [facility] REC#: [id number] PT STATUS: REG ER : 1935 PHYSICIAN: EMIR XIAO APRN ADMIT DATE: 02/09/21/ER Draft Date of Exam:02/09/21 PELVIS WITH LEFT HIP 2-3 VIEWS INDICATION: Fall. Comparison made to the prior study from 10/07/2020 FINDINGS: Patient is status post a previous right hip arthroplasty. There has been ORIF of a prior intertrochanteric fracture of the left femur. Displacement of the lesser trochanter unchanged from previous exam. There is no pelvic diastases or evidence of a new pelvic ring fracture. There is no hip dislocation. IMPRESSION: 1. Previous right hip arthroplasty and left femoral ORIF. No new fracture evident. There are no findings of hip dislocation. There is no pelvic diastases. Dictated on workstation # [id number] Dict: 02/09/21 1147 Trans: 02/09/21 1150 CV [id number] Interpreted by: DAVINA SINGH MD Electronically signed by: I offered her hospital admission but she states she would prefer to go back to assisted living and possibly transition to a longterm. She would like to stay out of the hospital if possible. We will try something stronger for pain in the interim. We will switch her from tramadol to hydrocodone for pain control. We will send her back to [place] and I did notify Dr. Keys of the need to look at longterm placement on Thursday. 1231-she is now pain-free after the hydrocodone. We will switch to this. (EMIR XIAO APRN) Impression Primary Impression: Recurrent falls Additional Impression: history of recent left sacral ala fracture Disposition: HOME, SELF-CARE Condition: Stable Departure-Patient Inst. Decision time for Depature: 12:10 (EMIR XIAO APRN) Referrals: DUNG KEYS DO (PCP/Family) Primary Care Physician Patient Instructions: Preventing Falls Add. Discharge Instructions: 1. Stop taking the tramadol, the pain medication prescribed last time. Switch to the new medication called hydrocodone. I will also prescribe a stool softener because this can be constipating. All discharge instructions reviewed with patient and/or family. Voiced understanding. Scripts Docusate Sodium (Colace) 100 Mg Capsule 100 MG PO DAILY, #14 CAP Prov: EMIR XIAO APRN 02/09/21 Hydrocodone/Acetaminophen (Hydrocodone-Acetamin 5-325 mg) 1 Each Tablet 1 TAB PO Q6H PRN for PAIN-MODERATE (5-7), #10 TAB Prov: EMIR XIAO APRN 02/09/21 ATTENDING PHYSICIAN NOTE: I WAS PHYSICALLY PRESENT ER PHYSICIAN WHEN THIS PATIENT WAS IN ER, BUT I WAS NOT INVOLVED IN ANY DECISION MAKING OR ANY CARE OF THIS PATIENT. (GAURANG BALL DO) EMIR XIAO APRN Feb 09, 2021 11:34 GAURANG BALL DO Feb 10, 2021 06:06
--- NOTE | 2021-02-09 11:51 | Diagnostic Imaging Report ---
INDICATION: Fall. Comparison made to the prior study from 10/07/2020 FINDINGS: Patient is status post a previous right hip arthroplasty. There has been ORIF of a prior intertrochanteric fracture of the left femur. Displacement of the lesser trochanter unchanged from previous exam. There is no pelvic diastases or evidence of a new pelvic ring fracture. There is no hip dislocation. IMPRESSION: 1. Previous right hip arthroplasty and left femoral ORIF. No new fracture evident. There are no findings of hip dislocation. There is no pelvic diastases. Dictated by: Dictated on workstation # [id number]
[2021-02-09] MEDS ORDERED: ACHD5005 PO (12:26)
[2021-02-09] MEDS ORDERED: DOCU-143 PO (12:32)
[2021-02-09 13:06] VITALS: BP 136/72
== END 2021-02-09 13:06 | disposition home or self-care (01) ==
LOC: EDUNIT# 11:21 → ER 11:22
DX: R29.6 Repeated falls (principal); G89.29 Other chronic pain; M54.9 Dorsalgia, unspecified; K21.9 Gastro-esophageal reflux disease without esophagitis; Z96.641 Presence of right artificial hip joint; Z87.81 Personal history of (healed) traumatic fracture; Z86.73 Personal history of transient ischemic attack (TIA), and cerebral infarction without residual deficits; Z86.711 Personal history of pulmonary embolism; Z79.01 Long term (current) use of anticoagulants; Z79.899 Other long term (current) drug therapy

== ENCOUNTER → 2021-07-02 | Outpatient (CLI) | payer MEDICARE ==
[~2021-07-02] MED LIST changes: +ACHD5005 PO; +DOCU-143 PO
== END ==
LOC: CARD 11:30
PROVIDERS: ATTEND Nurse Practitioner
DX: I35.0 Nonrheumatic aortic (valve) stenosis (principal); Z95.2 Presence of prosthetic heart valve
CPT/HCPCS: 93306

== ENCOUNTER → 2021-08-16 | Outpatient (CLI) | payer MEDICARE ==
[~2021-08-16] VITALS: Ht 157 cm; Wt 64.0 kg
[~2021-08-16] MED LIST changes: +CATHETER FLUSH 10 ML SYR IVP PRN; +REGADENOSON 0.4 MG/5 ML SYR (LEXISCAN) IV ONE
[2021-08-16 09:15] VITALS: BP 173/93
== END ==
LOC: CARD 07:46
PROVIDERS: ATTEND Nurse Practitioner Family
DX: R06.02 Shortness of breath (principal)
CPT/HCPCS: 78452; 93017; A9502

== ENCOUNTER → 2021-11-18 | Outpatient (CLI) | payer MEDICARE ==
[~2021-11-18] MED LIST changes: -CATHETER FLUSH 10 ML SYR IVP PRN; -REGADENOSON 0.4 MG/5 ML SYR (LEXISCAN) IV ONE
--- NOTE | 2021-11-18 14:29 | Diagnostic Imaging Report ---
PROCEDURE: CT head without contrast. TECHNIQUE: Multiple contiguous axial images were obtained through the brain without the use of intravenous contrast. Auto Exposure Controls were utilized during the CT exam to meet ALARA standards for radiation dose reduction. INDICATION: Acute confusion with blank staring. Comparison is made with prior head CT from 02/05/2021. FINDINGS: Artifact from a right cochlear implant is again noted. The area of encephalomalacia in the right temporal lobe as well as right frontoparietal lobe is unchanged. The area of encephalomalacia in the right nicole radiata is again noted. No sulcal effacement or midline shift is identified. No acute intra-axial or extra-axial hemorrhage is detected. Cisterns are patent. Visualized paranasal sinuses are clear. IMPRESSION: Stable chronic changes. No acute intracranial process is detected. Dictated by: Dictated on workstation # [id number]
== END ==
LOC: RAD 13:45
PROVIDERS: ATTEND Nurse Practitioner Gerontology
DX: R41.0 Disorientation, unspecified (principal); R46.89 Other symptoms and signs involving appearance and behavior
CPT/HCPCS: 70450

== ENCOUNTER 2022-04-08 18:22 | Observation (INO) | payer MEDICARE ==
[~2022-04-08] VITALS: Ht 160 cm; Wt 69.8 kg
--- NOTE | 2022-04-08 18:41 | ED Fall/Injury ---
General Stated Complaint: FALL Source: patient, EMS, alf records, old records Exam Limitations: other (VERY HARD OF HEARING) History of Present Illness Date Seen by Provider: Apr 08, 2022 Time Seen by Provider: 18:25 Initial Comments PT ARRIVES VIA EMS FROM [facility] PT HAD AN UNWITNESSED FALL, AND WAS FOUND BY STAFF SUPINE ON THE FLOOR IN HER ROOM EMS REPORT THAT PT'S NORMAL BASELINE IS ORIENTED X 1 ON ARRIVAL, PT IS ORIENTED TO PERSON, PLACE, SITUATION, GROSSLY ORIENTED TO TIME PT IS ABLE TO STATE EVENTS SHE STATES SHE STARTED TO BEND OVER TO PICK SOMETHING UP, AND SHE LOST HER BALANCE AND ENDED UP FALLING BACKWARDS, AND HIT HER HEAD ON THE FLOOR. SHE DENIES LOSS OF CONSCIOUSNESS SHE DENIES HEAD OR NECK PAIN OR BACK PAIN SHE DENIES HIP OR LEG OR ARM PAIN PT DOES C/O NAUSEA, NO VOMITING EMS REPORT THAT PT WAS ABLE TO STAND AND BEAR WEIGHT WITH ASSIST. EMS REPORT THAT PT WAS NAUSEATED WHEN LONGTERM STAFF TRIED TO STAND HER UP PT IS ON XARELTO. THERE IS NO EXTERNAL WOUNDS ANYWHERE /NO BLEEDING ANYWHERE PCP: DR. KEYS Allergies and Home Medications Allergies Coded Allergies: No Known Drug Allergies (Unverified , 02/04/17) Patient Home Medication List Acetaminophen (Tylenol Extra Strength) 500 Mg Tablet, 500-1,000 MG PO Q6H PRN for PAIN-MILD (1-4), (Reported) Entered as Reported by: ANASTASIIA RHOADES on 10/16/20 1543 Docusate Sodium (Dok) 100 Mg Capsule, 100 MG PO BID Prescribed by: DUNG KEYS on 10/22/20 174 Docusate Sodium (Colace) 100 Mg Capsule, 100 MG PO DAILY Prescribed by: EMIR XIAO on 02/09/21 1232 Hydrocodone/Acetaminophen (Hydrocodone-Acetamin 5-325 mg) 1 Each Tablet, 1 TAB PO Q6H PRN for PAIN-MODERATE (5-7) Prescribed by: EMIR XIAO on 02/09/21 1226 Imipramine HCl (Imipramine HCl) 25 Mg Tablet, 25 MG PO HS Prescribed by: DUNG KEYS on 10/22/201740 Lactulose (Lactulose) 20 Gm/30 Ml Solution, 10 GM PO BID PRN for CONSTIPATION- 2ND LINE Prescribed by: DUNG KEYS on 10/22/201740 Melatonin (Melatonin) 3 Mg Tablet, 3 MG PO HS, (Reported) Entered as Reported by: ANASTASIIA RHOADES on 10/11/20 121 Omeprazole (Omeprazole) 20 Mg Capsule.dr, 20 MG PO 0700,1600, (Reported) Entered as Reported by: MONTY HAMM on 02/04/17 1248 Polyethylene Glycol 3350 (Polyethylene Glycol 3350) 17 Gm Powd.pack, 17 GM PO BID Prescribed by: DUNG KEYS on 10/22/20 174 Rivaroxaban (Xarelto) 20 Mg Tablet, 20 MG PO DAILY, (Reported) Entered as Reported by: ANASTASIIA RHOADES on 10/11/20 121 Sennosides/Docusate Sodium (Stool Softener-Laxative Tablet) 1 Each Tablet, 1 EA PO BID Prescribed by: DUNG KEYS on 10/22/20 174 Simethicone (Gas Relief) 125 Mg Tab.chew, 125-250 MG PO BID PRN for INDIGESTION, (Reported) Entered as Reported by: ANASTASIIA RHOADES on 10/16/20 1543 Tramadol HCl (Tramadol HCl) 50 Mg Tablet, 50 MG PO TID PRN for PAIN-MODERATE (5-7) Prescribed by: DUNG KEYS on 10/22/20 174 Tramadol HCl (Ultram) 50 Mg Tablet, 50 MG PO Q6H PRN for PAIN-MODERATE (5-7) Prescribed by: EMIR XIAO on 02/05/21 1755 Venlafaxine HCl (Venlafaxine HCl ER) 75 Mg Cap.er.24h, 150 MG PO DAILY, (Reported) Entered as Reported by: ANASTASIIA RHOADES on 10/11/20 1210 Review of Systems Review of Systems Constitutional: no symptoms reported; No dizziness Eyes: No Symptoms Reported Ears, Nose, Mouth, Throat: no symptoms reported Respiratory: no symptoms reported Cardiovascular: no symptoms reported Gastrointestinal: see HPI; No abdominal pain; nausea; No vomiting Genitourinary: no symptoms reported Musculoskeletal: no symptoms reported Skin: no symptoms reported Psychiatric/Neurological: No Symptoms Reported; Denies Headache, Denies Numbness, Denies Paresthesia, Denies Tingling Past Qivlwrn-Givkon-Vixcqq Hx Patient Social History Tobacco Use?: No Substance use?: No Alcohol Use?: No Immunizations Up To Date PED Vaccines UTD: Yes First/Initial COVID19 Vaccinat: BOOSTER IN November COVID19 Vaccination Radu: BOOSTER IN November COVID19 Vaccination Date: BOOSTER IN NOVEMBER Seasonal Allergies Seasonal Allergies: No Past Medical History Surgeries: Yes (SEE BELOW) Abdominal, Cardiac, Ear Surgery, Gallbladder, Joint Replacement, Orthopedic, Valve Replacement Respiratory: Yes (MASSIVE BILAT SADDLE EMBOLI/PE 04/2017-ON VENT/NOW HOME O2 AT HS) Pneumonia, Pulmonary Embolism, Sleep Apnea Currently Using CPAP: No Currently Using BIPAP: Yes Cardiac: Yes (AORTIC STENOSIS - dx 2012;CAROTID DISEASE;) Chronic Edema/Swelling, Peripheral Vascular, Valvular Heart Disease Neurological: Yes (RESTLESS LEG; CVA ; COGNITIVE IMPAIRMENT) Stroke 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 Disorders: No Female 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 Disorders: 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 Sexually Transmitted Disease: No HIV/AIDS: No Genitourinary: No Gastrointestinal: Yes Abdominal Hernia, Gastroesophageal Reflux, Hiatal Hernia, Irritable Bowel Musculoskeletal: Yes (RIGHT HIP REPLACEMENT ; L HIP FX/ORIF; FREQUENT FALLS) Arthritis, Chronic Back Pain Endocrine: No HEENT: Yes (RT COCHLEAR IMPLANT/HEARING AID LEFT) Cataract 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, Bilateral Hearing Aide Cancer: No Psychosocial: Yes Sleep Difficulties Integumentary: No Blood Disorders: No Adverse Reaction/Blood Tranf: No Family Medical History Diabetes mellitus 19 FATHER 19 MOTHER FH: heart disease 19 MOTHER FH: muscular dystrophy G8 BROTHER (Friedreich's Ataxia) Hypertension Myocardial infarction 19 MOTHER No Pertinent Family Hx PAST SURGICAL HISTORY: -RIGHT COCHLEAR IMPLANT -HERNIA REPAIR -CHOLECYSTECTOMY -EGD/COLONOSCOPY -LUMBAR EPIDURAL STEROID INJECTIONS -RIGHT HIP REPLACEMENT 02/05/2017 -LEFT HIP FX/ORIF 09/2020 -CARDIAC CATH 2012-NO SIGNFICANT CAD, NO INTERVENTION -CARDIAC CATH 12/27/2019--NO SIGNFICANT CAD. AORTIC STENOSIS/NEED FOR VALVE REPLACEMENT; NO INTERVENTION. EF 55-65%. DONE BY DR. ELLISON -AORTIC VALVE REPLACEMENT Physical Exam Vital Signs Vital Signs - First Documented 04/08/22 18:22 Temp 36.4 Pulse 95 Resp 16 B/P (MAP) 171/87 (115) Pulse Ox 95 O2 Delivery Room Air Capillary Refill : Height, Weight, BMI Height: 5'3.00" Weight: 174lbs. 12.8oz. 79.367295md; 25.96 BMI Method:Stated General Appearance: WD/WN, no apparent distress HEENT: PERRL/EOMI, other (RIGHT COCHLEAR IMPLANT. PT IS NOT WEARING HEARING AIDS) Neck: other (PT PLACED IN CERVICAL COLLAR ON ARRIVAL) Cardiovascular: regular rate, rhythm, no murmur Respiratory: chest non-tender, normal breath sounds, no respiratory distress, no accessory muscle use Gastrointestinal: non tender, soft Back: no CVA tenderness, no vertebral tenderness Extremities: normal range of motion, non-tender, no pedal edema, normal capillary refill Neurologic/Psychiatric: supervisor calibration II-XII nml as tested, no motor/sensory deficits, alert, normal mood/affect, oriented x 3 Skin: normal color, warm/dry; No ecchymosis Jimena Coma Score Best Eye Response: (4) Open Spontaneously Best Verbal Response: (5) Oriented Best Motor Response: (6) Obeys Commands Progress/Results/Core Measures Results/Orders Lab Results Laboratory Tests Test 04/08/22 18:46 Range/Units White Blood Count 5.6 4.3-11.0 10^3/uL Red Blood Count 4.14 3.80-5.11 10^6/uL Hemoglobin 12.2 11.5-16.0 g/dL Hematocrit 38 35-52 % Mean Corpuscular Volume 93 80-99 fL Mean Corpuscular Hemoglobin 30 25-34 pg Mean Corpuscular Hemoglobin Concent 32 32-36 g/dL Red Cell Distribution Width 16.3 H 10.0-14.5 % Platelet Count 143 130-400 10^3/uL Mean Platelet Volume 10.1 9.0-12.2 fL Immature Granulocyte % (Auto) 1 % Neutrophils (%) (Auto) 68 42-75 % Lymphocytes (%) (Auto) 19 12-44 % Monocytes (%) (Auto) 9 0-12 % Eosinophils (%) (Auto) 3 0-10 % Basophils (%) (Auto) 0 0-10 % Neutrophils # (Auto) 3.8 1.8-7.8 10^3/uL Lymphocytes # (Auto) 1.1 1.0-4.0 10^3/uL Monocytes # (Auto) 0.5 0.0-1.0 10^3/uL Eosinophils # (Auto) 0.2 0.0-0.3 10^3/uL Basophils # (Auto) 0.0 0.0-0.1 10^3/uL Immature Granulocyte # (Auto) 0.0 0.0-0.1 10^3/uL Percent Immature Platelet Fraction 2.3 0.0-7.6 % Prothrombin Time 15.7 H 12.2-14.7 SEC INR Comment 1.2 0.8-1.4 Activated Partial Thromboplast Time 32 24-35 SEC Sodium Level 138 135-145 MMOL/L Potassium Level 4.2 3.6-5.0 MMOL/L Chloride Level 105 98-107 MMOL/L Carbon Dioxide Level 21 21-32 MMOL/L Anion Gap 12 5-14 MMOL/L Blood Urea Nitrogen 20 H 7-18 MG/DL Creatinine 1.05 0.60-1.30 MG/DL Estimat Glomerular Filtration Rate 52 BUN/Creatinine Ratio 19 Glucose Level 194 H 70-105 MG/DL Calcium Level 9.2 8.5-10.1 MG/DL Corrected Calcium 9.4 8.5-10.1 MG/DL Magnesium Level 2.0 1.6-2.4 MG/DL Total Bilirubin 0.3 0.1-1.0 MG/DL Aspartate Amino Transf (AST/SGOT) 18 5-34 U/L Alanine Aminotransferase (ALT/SGPT) 16 0-55 U/L Alkaline Phosphatase 163 H 40-136 U/L Total Creatine Kinase 47 29-168 U/L Creatine Kinase MB 1.6 <6.6 NG/ML Myoglobin 55.6 10.0-92.0 NG/ML Troponin I 0.043 H <0.028 NG/ML B-Type Natriuretic Peptide 23.4 <100.0 PG/ML Total Protein 7.2 6.4-8.2 GM/DL Albumin 3.8 3.2-4.5 GM/DL My Orders Orders - GAURANG BALL DO Monitor-Rhythm Ecg Trace Only (04/08/22 18:28) Ct Head/Cervical Spine Wo (04/08/22 18:28) Chest 1 View, Ap/Pa Only (04/08/22 18:28) Pelvis 1 To 2 Views (04/08/22 18:28) Cbc With Automated Diff (04/08/22 18:28) Comprehensive Metabolic Panel (04/08/22 18:28) Creatine Kinase (04/08/22 18:28) Creatine Kinase Mb (04/08/22 18:28) Magnesium (04/08/22 18:28) Protime With Inr (04/08/22 18:28) Partial Thromboplastin Time (04/08/22 18:28) Myoglobin Serum (04/08/22 18:28) Troponin I Coffey (04/08/22 18:28) Ed Iv/Invasive Line Start (04/08/22 18:28) Cervical Collar (04/08/22 18:28) Ondansetron Injection (Zofran Injectio (04/08/22 18:45) Ekg Tracing (04/08/22 19:27) Bnp Diane (04/08/22 19:41) Ed Admission (Communication) (04/08/22 20:09) Medications Given in ED Current Medications Medications Dose Ordered Sig/Sergo Route Start Time Stop Time Status Last Admin Dose Admin Ondansetron HCl 4 mg ONCE ONCE IVP 04/08/22 18:45 04/08/22 18:46 DC 04/08/22 18:47 4 MG Vital Signs/I&O 04/08/22 18:22 Temp 36.4 Pulse 95 Resp 16 B/P (MAP) 171/87 (115) Pulse Ox 95 O2 Delivery Room Air Progress Progress Note : Progress Note CERVICAL COLLAR PLACED ON ARRIVAL C-COLLAR REMOVED AT 1957 AFTER RECEIVING RADIOLOGIST REPORT OF CT OF HEAD/CERVICAL SPINE NECK IS NON-TENDER TO PALPATION GIVEN: -ZOFRAN FOR NAUSEA PT HAD NO OTHER COMPLAINTS FOR REMAINDER OF ER STAY O2 SATS 91-92% ON ROOM AIR. PLACED ON O2 AT 2L/NC, AND O2 SATS UP TO 96% UNEVENTFUL ER STAY REVIEWED PRIOR RECORDS, LONGTERM RECORDS, ER VISITS, ADMITS, H&P'S, CONSULTS, TESTS/PROCEDURES AND DISCHARGE SUMMARIES DISCUSSED TEST RESULTS, NEED FOR ADMIT AND PT IS AGREEABLE TO PLAN PT IS DNR/DNI Initial ECG Impression Date: Apr 08, 2022 Initial ECG Impression Time: 19:31 Initial ECG Rate: 83 Initial ECG Rhythm: Normal Sinus (INFERIOR Q WAVES) Initial ECG Comparisson: Unchanged (NO CHANGE FROM EKG DONE IN 2018) Comment INTERPRETED BY ME Diagnostic Imaging Comments CXR--PER RADIOLOGIST REPORT AT 1940 FINDINGS: Lungs/pleura: Slight low lung volumes are seen with mild bilateral atelectasis. There is slight crowding of the bilateral hilar regions and pulmonary vasculature. There is no definite lung infiltrate. There is no pneumothorax. There is no pleural effusion. Mediastinum: Unremarkable. Pulmonary vasculature: The pulmonary vasculature appears prominent and may also be related to mild atelectasis. Heart: There is cardiomegaly. Again seen valvuloplasty changes. Bones/extrathoracic soft tissue: There are degenerative spurs involving the thoracic spine. IMPRESSION: 1: There is interval slight low lung volumes and atelectasis involving both lungs. There is no definite lung infiltrate seen. 2: There is cardiomegaly and mild pulmonary vascular congestion. The pulmonary vasculature may also be accentuated due to slight low lung volumes. PELVIS XRAY--PER RADIOLOGIST REPORT AT 2003 FINDINGS: X-rays area now than left proximal femur region is again seen. There is no evidence of fracture involving the left hip. Previously seen fracture of the superior aspect of the left femoral trochanter region and lesser trochanter region. Demonstrates interval bony bridging and healing. Right hip arthroplasty is again seen. There is no interval fracture of the right hip. There is no fracture of the pelvis or visualized portions of the sacrum. IMPRESSION: 1: There is no acute fracture or dislocation seen on this exam. CT HEAD/CERVICAL SPINE--PER RADIOLOGIST REPORT AT 1940 Findings: Head CT: Cochlear implant device seen overlying the right side of the head which causes significant streak artifact obscuring the intracranial contents with the right side the most. There is no gross evidence of intracranial hemorrhage, brain herniation or midline shift. There is no hydrocephalus. There is large area of encephalomalacia involving the right temporal lobe and right parietal lobe which is not majorly changed. There is also low density involving the right nicole radiata region. There is no brain herniation or midline shift. Basal cisterns are unremarkable. The extracranial soft tissues, skull, and orbits are unremarkable as visualized. Paranasal sinuses are clear. Mastoid air cells are clear. Cervical spine: There is no evidence of acute cervical spine fracture. There is grade 1 anterolisthesis of C3 on C4 and C4 on C5 which is degenerative. There are diffuse disk bulges seen from the C3-C7 levels. There is multilevel neural foramen narrowing involving the C3-C7 levels including left C3-C4, C4-C5 and severe neural foramen narrowing and moderate to severe left C5-C6 and right C5-C6 neural foramen narrowing. There is least mild central canal narrowing seen from the C4-C7 levels. There is no significant neck soft tissue abnormality. Visualized upper lung bolanos are clear. Impression: 1: There is no gross evidence of acute intracranial process as visualized. 2: There is no acute cervical spine fracture. Reviewed: Reviewed by Me Departure Communication (Admissions) 2003--SPOKE WITH DR. KEYS, ACCEPTS PT FOR ADMIT. SHE WILL DO ADMIT ORDERS. Impression Primary Impression: Unwitnessed fall Additional Impressions: Minor head injury without loss of consciousness ANTICOAGULATION THERAPY FALL VS SYNCOPE Elevated troponin Hx of mitral valve replacement HX OF CVA Disposition: ADMITTED INPATIENT Condition: Stable Admissions Decision to Admit Reason: Admit from ER (General) Decision to Admit/Date: Apr 08, 2022 Time/Decision to Admit Time: 20:05 Departure-Patient Inst. Referrals: DUNG KEYS DO (PCP/Family) Primary Care Physician GAURANG BALL DO Apr 08, 2022 18:41
[2022-04-08] MEDS ORDERED: ONDANSETRON 4 MG/2 ML (SDV) Z0FRAN IVP ONE (18:45)
[2022-04-08 18:53] LABS: EOSINOPHILS # (AUTO) 0.2 10^3/uL (0.0-0.3); EOSINOPHILS % (AUTO) 3 % (0-10)
[2022-04-08 18:54] LABS: BASOPHILS % (AUTO) 0 % (0-10); HEMATOCRIT 38 % (35-52); HEMOGLOBIN 12.2 g/dL (11.5-16.0); LYMPHOCYTES # (AUTO) 1.1 10^3/uL (1.0-4.0); LYMPHOCYTES % (AUTO) 19 % (12-44); MEAN CORPUSCULAR HEMOGLOBIN 30 pg (25-34); MEAN CORPUSCULAR HGB CONC 32 g/dL (32-36); MEAN CORPUSCULAR VOLUME 93 fL (80-99); MEAN PLATELET VOLUME 10.1 fL (9.0-12.2); MONOCYTES # (AUTO) 0.5 10^3/uL (0.0-1.0); MONOCYTES % (AUTO) 9 % (0-12); NEUTROPHILS # (AUTO) 3.8 10^3/uL (1.8-7.8); NEUTROPHILS % (AUTO) 68 % (42-75); PLATELET COUNT 143 10^3/uL (130-400); WHITE BLOOD COUNT 5.6 10^3/uL (4.3-11.0)
[2022-04-08 19:08] LABS: ALBUMIN 3.8 GM/DL (3.2-4.5)
[2022-04-08 19:09] LABS: POTASSIUM 4.2 MMOL/L (3.6-5.0)
[2022-04-08 19:10] LABS: CALCIUM 9.2 MG/DL (8.5-10.1)
[2022-04-08 19:11] LABS: TOTAL PROTEIN 7.2 GM/DL (6.4-8.2)
[2022-04-08 19:12] LABS: INR 1.2 (0.8-1.4); PROTHROMBIN TIME PATIENT 15.7 SEC (12.2-14.7)
[2022-04-08 19:13] LABS: BILIRUBIN,TOTAL 0.3 MG/DL (0.1-1.0)
[2022-04-08 19:15] LABS: CREATININE SERUM 1.05 MG/DL (0.60-1.30)
[2022-04-08 19:25] LABS: CREATINE KINASE MB 1.6 NG/ML (<6.6)
--- NOTE | 2022-04-08 19:29 | Diagnostic Imaging Report ---
CLINICAL INDICATION: Patient status post fall. EXAM: Portable chest x-ray upright view. COMPARISON: Chest x-ray dated 10/07/2020. FINDINGS: Lungs/pleura: Slight low lung volumes are seen with mild bilateral atelectasis. There is slight crowding of the bilateral hilar regions and pulmonary vasculature. There is no definite lung infiltrate. There is no pneumothorax. There is no pleural effusion. Mediastinum: Unremarkable. Pulmonary vasculature: The pulmonary vasculature appears prominent and may also be related to mild atelectasis. Heart: There is cardiomegaly. Again seen valvuloplasty changes. Bones/extrathoracic soft tissue: There are degenerative spurs involving the thoracic spine. IMPRESSION: 1: There is interval slight low lung volumes and atelectasis involving both lungs. There is no definite lung infiltrate seen. 2: There is cardiomegaly and mild pulmonary vascular congestion. The pulmonary vasculature may also be accentuated due to slight low lung volumes. Dictated by: Dictated on workstation # [id number]
--- NOTE | 2022-04-08 19:37 | Diagnostic Imaging Report ---
Clinical indications: Patient status post fall with head and neck pain. Exam: Head CT without IV contrast with sagittal and coronal reformations. Axial CT scan of the cervical spine with sagittal and coronal reformations. Auto Exposure Controls were utilized during the CT exam to meet ALARA standards for radiation dose reduction. Comparison: Head CT without contrast dated 11/18/2021 Findings: Head CT: Cochlear implant device seen overlying the right side of the head which causes significant streak artifact obscuring the intracranial contents with the right side the most. There is no gross evidence of intracranial hemorrhage, brain herniation or midline shift. There is no hydrocephalus. There is large area of encephalomalacia involving the right temporal lobe and right parietal lobe which is not majorly changed. There is also low density involving the right nicole radiata region. There is no brain herniation or midline shift. Basal cisterns are unremarkable. The extracranial soft tissues, skull, and orbits are unremarkable as visualized. Paranasal sinuses are clear. Mastoid air cells are clear. Cervical spine: There is no evidence of acute cervical spine fracture. There is grade 1 anterolisthesis of C3 on C4 and C4 on C5 which is degenerative. There are diffuse disk bulges seen from the C3-C7 levels. There is multilevel neural foramen narrowing involving the C3-C7 levels including left C3-C4, C4-C5 and severe neural foramen narrowing and moderate to severe left C5-C6 and right C5-C6 neural foramen narrowing. There is least mild central canal narrowing seen from the C4-C7 levels. There is no significant neck soft tissue abnormality. Visualized upper lung bolanos are clear. Impression: 1: There is no gross evidence of acute intracranial process as visualized. 2: There is no acute cervical spine fracture. Dictated by: Dictated on workstation # [id number]
--- NOTE | 2022-04-08 20:02 | Diagnostic Imaging Report ---
CLINICAL INDICATIONS: Patient status post fall. EXAM: X-ray of the pelvis AP view. COMPARISON: X-ray of the pelvis and left hip dated 02/05/2021. FINDINGS: X-rays area now than left proximal femur region is again seen. There is no evidence of fracture involving the left hip. Previously seen fracture of the superior aspect of the left femoral trochanter region and lesser trochanter region. Demonstrates interval bony bridging and healing. Right hip arthroplasty is again seen. There is no interval fracture of the right hip. There is no fracture of the pelvis or visualized portions of the sacrum. IMPRESSION: 1: There is no acute fracture or dislocation seen on this exam. Dictated by: Dictated on workstation # [id number]
[2022-04-08] MEDS ORDERED: LACTULOSE SYRUP 10GM/15ML (ENULOSE) 30ML UDC PO PRN (21:30)
[2022-04-08] MEDS ORDERED: CALCIUM CARBONATE 500 MG (TUMS) TAB.CHEW PO PRN (21:30)
[2022-04-08] MEDS ORDERED: HYDROmorphone 2 MG/ML VIAL (DILAUDID) IV PRN (21:30)
[2022-04-08] MEDS ORDERED: ANTACID SUSP 30 ML UDC (MYLANTA) PO PRN (21:30)
[2022-04-08] MEDS ORDERED: diphenhydrAMINE 50 MG/ML INJ (BENADRYL) IVP PRN (21:30)
[2022-04-08] MEDS ORDERED: diphenhydrAMINE 25 MG TAB (BENADRYL) PO PRN (21:30)
[2022-04-08] MEDS ORDERED: polyethylene glycoL POWDER 17 GM (MIRALAX) PACK PO PRN (21:30)
[2022-04-08] MEDS ORDERED: BISACODYL 10 MG SUPP (DULCOLAX) PR PRN (21:30)
[2022-04-08] MEDS ORDERED: MILK OF MAGNESIA 400 MG/5 ML 30 ML UDC PO PRN (21:30)
[2022-04-08] MEDS ORDERED: ONDANSETRON 4 MG (ZOFRAN) ORAL DISSOLVE TAB PO PRN (21:30)
[2022-04-08] MEDS ORDERED: SIMETHICONE 80 MG (MYLICON) CHEW PO PRN (21:30)
[2022-04-08] MEDS ORDERED: ONDANSETRON 4 MG/2 ML (SDV) Z0FRAN IV PRN (21:30)
[2022-04-08] MEDS ORDERED: MELATONIN 3 MG TABLET PO PRN (21:30)
[2022-04-08] MEDS: NS IV 1000 ML 1,000 ML IV SCH (21:58)
[2022-04-08] MEDS: ACETAMINOPHEN 325 MG TABLET PO PRN (22:04)
[2022-04-08] MEDS: DICYCLOMINE 10 MG (BENTYL) CAP PO SCH (22:32)
[2022-04-08 22:51] VITALS: BP 171/87
[2022-04-08] MEDS ORDERED: RT-ALBUTEROL SULF 2.5 MG/3 ML PRE-MIX VIAL INH PRN (23:00)
[2022-04-09] VITALS (7 sets, daily range): BP systolic 117–160; BP diastolic 63–79
[2022-04-09 06:17] LABS: BASOPHILS % (AUTO) 0 % (0-10); HEMOGLOBIN 11.4 g/dL (11.5-16.0); MEAN CORPUSCULAR VOLUME 94 fL (80-99)
[2022-04-09 06:19] LABS: EOSINOPHILS # (AUTO) 0.2 10^3/uL (0.0-0.3); EOSINOPHILS % (AUTO) 4 % (0-10); HEMATOCRIT 36 % (35-52); LYMPHOCYTES # (AUTO) 0.9 10^3/uL (1.0-4.0); LYMPHOCYTES % (AUTO) 21 % (12-44); MEAN CORPUSCULAR HEMOGLOBIN 29 pg (25-34); MEAN CORPUSCULAR HGB CONC 31 g/dL (32-36); MEAN PLATELET VOLUME 10.5 fL (9.0-12.2); MONOCYTES # (AUTO) 0.4 10^3/uL (0.0-1.0); MONOCYTES % (AUTO) 9 % (0-12); NEUTROPHILS # (AUTO) 2.8 10^3/uL (1.8-7.8); NEUTROPHILS % (AUTO) 65 % (42-75); PLATELET COUNT 133 10^3/uL (130-400); WHITE BLOOD COUNT 4.2 10^3/uL (4.3-11.0)
[2022-04-09] MEDS: inSUlin ASPART (NovoLOG) 1 UNIT/0.01 ML (CHARGE PER UNIT) SC SCH ×4 (06:38→21:09)
[2022-04-09] MEDS: PANTOPRAZOLE 40 MG (PROTONIX) TAB PO SCH (06:38)
[2022-04-09] MEDS: VENlafaxine XR 75 MG (EFFEXOR XR) CAP PO SCH (06:38)
[2022-04-09] MEDS: DICYCLOMINE 10 MG (BENTYL) CAP PO SCH ×4 (06:38→20:39)
[2022-04-09 06:49] LABS: ALBUMIN 3.4 GM/DL (3.2-4.5); BILIRUBIN,TOTAL 0.4 MG/DL (0.1-1.0); CALCIUM 8.8 MG/DL (8.5-10.1); CREATININE SERUM 0.85 MG/DL (0.60-1.30); POTASSIUM 4.3 MMOL/L (3.6-5.0); TOTAL PROTEIN 6.4 GM/DL (6.4-8.2)
[2022-04-09] MEDS: ASPIRIN E.C. 81 MG (ECOTRIN) TAB PO SCH (08:24)
[2022-04-09] MEDS: SENNOSIDES 8.6 MG (SENOKOT) TAB PO SCH ×2 (08:25→20:40)
[2022-04-09] MEDS: DOCUSATE SODIUM 100 MG (COLACE) CAP PO SCH ×2 (08:29→20:40)
[2022-04-09] MEDS: SENNA W/DOCUSATE (SENOKOT S) TABLET PO SCH ×2 (09:25→20:40)
--- NOTE | 2022-04-09 10:01 | Physical Therapy Evaluation ---
PT Evaluation-General Medical Diagnosis Admission Date Apr 08, 2022 at 21:21 Medical Diagnosis: Fall Onset Date: Apr 09, 2022 Therapy Diagnosis Therapy Diagnosis: impaired mobility Height/Weight Height (Feet): 5 Height (Inches): 3.00 Weight (Pounds): 174 Weight (Ounces): 12.8 Precautions Precautions/Isolations: Standard Precautions Referral Physician: Fely Mcintosh DO Reason for Referral: Evaluation/Treatment Medical History Pertinent Medical History: Arthritis, CVA, Diverticulitis, GERD, HTN Additional Medical History cochlear implant (missing device today), glasses (missing - needs to read lips in absence of cochlear implant), pelvis fx 2021, (R) ankle Fx 1 month ago (per patient) Current History Pt fell backward while getting up. She struck her head. No LOC or injury observed. Reviewed History: Yes Social History Home: Assisted Living Prior Prior Level of Function SCALE: Activities may be completed with or without assistive devices. 3-Zvlvppaezv-xdcufgm completes the activity by him/herself with no assistance from a helper. 5-Set-up or Clean-up Assistance-helper sets up or cleans up; patient completes activity. Lucinda assists only prior to or following the activity. 4-Supervision or Touching Assistance-helper provides verbal cues and/or touching/steadying and/or contact guard assistance as patient completes activity. Assistance may be provided throughout the activity or intermittently. 3-Partial/Moderate Assistance-helper does LESS THAN HALF the effort. Lucinda lifts, holds or supports trunk or limbs, but provides less than half the effort. 2-Substantial/Maximal Assistance-helper does MORE THAN HALF the effort. Lucinda lifts or holds trunk or limbs and provides more than half the effort. 3-Ugqjbsvyd-gwzkfv does ALL the effort. Patient does none of the effort to complete the activity. Or, the assistance of 2 or more helpers is required for the patient to complete the activity. If activity was not attempted, code reason: 7-Patient Refused. 9-Not Applicable-not attempted and the patient did not perform the activity before the current illness, exacerbation or injury. 10-Not Attempted due to Environmental Limitations-(lack of equipment, weather restraints, etc.). 88-Not Attempted due to Medical Conditions or Safety Concerns. Bed Mobility: 4 Transfers (B,C,W/C): 4 Gait: 4 Indoor Mobility (Ambulation): Needed Some Help Stairs: Not Applicalbe Prior Devices Use: Walker PT Evaluation-Current Subjective Pt is alert, slightly confused, and due to missing cochlear implant device and glasses, she is having difficulty with consistent communication. Pt was fairly consistent with lip reading when standing within 4ft. Objective Patient Orientation: Person, Confused, Place, Situation Attachments: IV ROM/Strength ROM Upper Extremities WFL ROM Lower Extremities WFL Strength Upper Extremities WFL Strength Lower Extremities WFL Neuromuscular (Tone, Coordination, Reflexes) Intact Sensory Vision: Wears Glasses Hearing: Impaired Hand Dominance: Right Sensation Right Upper Extremit: Intact Sensation Left Upper Extremity: Intact Sensation Right Lower Extremit: Intact Sensation Left Lower Extremity: Intact Transfers Roll Left to Right (QC): 3 Sit to Lying (QC): 3 Lying to Sitting/Side of Bed(Q: 3 Sit to Stand (QC): 3 Chair/Vgb-kx-Lomgr Xfer(QC): 3 Gait Does the Patient Walk?: Yes Mode of Locomotion: Walk Anticipated Mode of Locomotion: Walk Walk 10 feet (QC): 3 Distance: 15ft Gait Assistive Device: FWW Comments/Gait Description Initially retropulsive upon standing, requiring moderate assistance to remain upright. Retropulsive during gait as well. Wheelchair Training Does the Pt Use a Wheelchair?: No Balance Sitting Static: Normal Sitting Dynamic: Normal Standing Static: Fair Standing Dynamic: Poor Assessment/Needs Pt has poor balance and impulsive behavior during gait and transfers. Pt required verbal cueing to correctly perform sit to stand, and walked with the walker pushed in front beyond its effective range. Rehab Potential: Fair PT Custodial Goals Construction Skills Teacher Goals PT Construction Skills Teacher Goals Time Frame: Apr 23, 2022 Roll Left & Right (QC): 6 Sit to Lying (QC): 6 Lying-Sitting on Side/Bed(QC): 6 Sit to Stand (QC): 6 Chair/Qzy-nb-Isrxe Xfer(QC): 6 Toilet Transfer (QC): 6 Does the Patient Walk: Yes Walk 10 feet (QC): 6 Walk 50ft with 2 Turns (QC): 6 Walk 150 ft (QC): 6 Does the Pt use WC or Scooter?: No PT Plan Problem List Problem List: Safety, Balance, Gait, Transfer Treatment/Plan Treatment Plan: Continue Plan of Care Treatment Duration: Apr 23, 2022 Frequency: 6 times per week Estimated Hrs Per Day: .5 hour per day Patient and/or Family Agrees t: Yes Time Time In: 934 Time Out: 1000 DATE: Apr 09, 2022 Total Billed Treatment Time: 25 Total Billed Treatment 1, ramon 25 MANDY VAUGHN PT Apr 09, 2022 10:01
--- NOTE | 2022-04-09 11:11 | Occupational Therapy Eval ---
OT Evaluation-General/PLF Medical Diagnosis Admission Date Apr 08, 2022 at 21:21 Medical Diagnosis: Fall Onset Date: Apr 09, 2022 Therapy Diagnosis Therapy Diagnosis: weakness/falls Height/Weight Height (Feet): 5 Height (Inches): 3.00 Weight (Pounds): 174 Weight (Ounces): 12.8 Precautions Precautions/Isolations: Fall Prevention, Standard Precautions Safety Interventions: Bed Exit Alarm (chair alarm) Weight Bear Status Weight Bearing Restriction: Weight Bearing/Tolerated Referral Physician: Fely Mcintosh DO Referral Reason: Self Care, Evaluation/Treatment Medical History Pertinent Medical History: Arthritis, CVA, Diverticulitis, GERD, HTN Current History ER admission d/t fall Social History Home: Assisted Living ADL-Prior Level of Function SCALE: Activities may be completed with or without assistive devices. 9-[id number]-[id number] completes the activity by him/herself with no assistance from a helper. 5-Set-up or Clean-up Assistance-helper sets up or cleans up; patient completes activity. [place] assists only prior to or following the activity. 4-Supervision or Touching Assistance-helper provides verbal cues and/or touching/steadying and/or contact guard assistance as patient completes activity. Assistance may be provided throughout the activity or intermittently. 3-Partial/Moderate Assistance-helper does LESS THAN HALF the effort. [place] lifts, holds or supports trunk or limbs, but provides less than half the effort. 2-Substantial/Maximal Assistance-helper does MORE THAN HALF the effort. [place] lifts or holds trunk or limbs and provides more than half the effort. 2-Vwuedzjlo-jmgdae does ALL the effort. Patient does none of the effort to complete the activity. Or, the assistance of 2 or more helpers is required for the patient to complete the activity. If activity was not attempted, code reason: 7-Patient Refused. 9-Not Applicable-not attempted and the patient did not perform the activity befo re the current illness, exacerbation or injury. 10-Not Attempted due to Environmental Limitations-(lack of equipment, weather re straints, etc.). 88-Not Attempted due to Medical Conditions or Safety Concerns. 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 Mental Status/Objective Patient Orientation: Person, Confused, Situation Attachments: IV Current Glasses/Contacts: Yes Hearing Aids: Yes Hand Dominance: Right Upper Extremity ROM BUE ROM WFLS Upper Extremity Strength +3/5 difficulty following directions may be due to hearing difficulty ADL-Treatment Eating (QC): 6 Oral Hygiene (QC): 4 Shower/Bathe Self (QC): 3 Upper Body Dressing (QC): 4 Lower Body Dressing (QC): 3 On/Off Footwear (QC): 3 Toileting Hygiene (QC): 3 Education OT Patient Education: Correct positioning, Energy conservation, Modified ADL techniques, Progress toward Goal/Update tx plan, Purpose of tx/functional activities, Reviewed precautions, Rehab process, Safety issues, Transfer techniques, Use of adapted equipment Teaching Recipient: Patient Teaching Methods: Demonstration, Discussion Response to Teaching: Verbalize Understanding, Reinforcement Needed OT Care Home Goals Gore Maker Goals Oral Hygiene (QC): 5 Toileting Hygiene (QC): 4 Shower/Bathe Self (QC): 4 Upper Body Dressing (QC): 5 Lower Body Dressing (QC): 4 On/Off Footwear (QC): 4 1=Demonstrate adherence to instructed precautions during ADL tasks. 2=Patient will verbalize/demonstrate understanding of assistive devices/modifications for ADL. 3=Patient will improve strength/tolerance for activity to enable patient to perform ADL's. OT Education/Plan Problem List/Assessment Assessment: Decreased Activ Tolerance, Decreased Safety Aware, Decreased UE Strength, Impaired Cognition, Impaired Coordination, Impaired Funct Balance, Impaired Self-Care Skills Discharge Recommendations Plan/Recommendations: Continue POC Therapy Discharge Recommendati: Post Acute OT Treatment Plan/Plan of Care Treatment,Training & Education: Yes Patient would benefit from OT for education, treatment and training to promote independence in ADL's, mobility, safety and/or upper extremity function for ADL's. Plan of Care: ADL Retraining, Cognitive Retraining, Concurrent Therapy, Functional Mobility, Group Exercise/Act as Ind, UE Funct Exercise/Act Treatment Duration: Apr 19, 2022 Frequency: 3 times per week (3-5 times per week) Estimated Hrs Per Day: .25 hour per day Agreement: Yes Rehab Potential: Fair All needs met, call cord in reach Time Start Time: 09:12 Stop Time: 09:28 DATE: Apr 09, 2022 Total Time Billed (hr/min): 16 Billed Treatment Time 1 visit EVM 1, 16 min YULISA RYAN OT Apr 09, 2022 11:11
[2022-04-09] MEDS: NS IV 1000 ML 1,000 ML IV SCH (13:17)
[2022-04-09] MEDS ORDERED: PANT40TA52 PO (13:20)
[2022-04-09] MEDS ORDERED: ACET-2267 PO (13:20)
[2022-04-09] MEDS ORDERED: SULF-221 PO (13:20)
[2022-04-09] MEDS ORDERED: MIRT7.5T8 PO (13:20)
[2022-04-09] MEDS ORDERED: SENN-234 PO (13:20)
[2022-04-09] MEDS ORDERED: CALC10009 PO (13:20)
[2022-04-09] MEDS ORDERED: ASCO100024 PO (13:20)
[2022-04-09] MEDS ORDERED: SIME125C PO (13:20)
[2022-04-09] MEDS ORDERED: TRM50T PO (13:20)
[2022-04-09] MEDS ORDERED: MIRA50TA PO (13:20)
[2022-04-09] MEDS ORDERED: LORA10TA7 PO (13:20)
[2022-04-09] MEDS ORDERED: DOCU100C37 PO ×2 (13:20)
[2022-04-09] MEDS ORDERED: RIVA20TA2 PO (13:20)
[2022-04-09] MEDS ORDERED: DICY10CA12 PO (13:20)
[2022-04-09] MEDS ORDERED: VENL37.57 PO (13:20)
[2022-04-09] MEDS ORDERED: SODI51CR8 DT (13:20)
[2022-04-09] MEDS ORDERED: POLY17PO6 PO ×2 (13:20)
--- NOTE | 2022-04-09 13:29 | History & Physical ---
JENNA SAWANT Beatris 04/09/22 1329: History of Present Illness History of Present Illness Reason for visit/HPI Ruth Sierra is an 86 yo F with a pmh of bilateral pulmonary embolism, aortic stenosis, resting leg, CVA, mitral valve replacement, right hip replacement, frequent falls among other chronic medical conditions, who was brought to [facility] ED by EMS on 04/08/22 after sustaining an unwitnessed fall in her home at [facility]. She is on long-term anticoagulation with Xarelto. The patient reportedly bent over to pick something up when she fell backward and hit her head. She denied loss of consciousness. Denied head, neck, back, arm, or leg pain. CXR noted atelectasis, but no definite lung infiltrates, plus cardiomegaly. CT of head/cervical spine revealed no evidence of acute intracranial processes or cervical fracture. Pelvis x-ray showed no acute fracture or dislocation. She was found to have a slightly elevated troponin. EKG showed NSR with inferior Q waves consistent with old EKGs. Her last stress test is in August and she will have an ECHO completed inpatient. Ruth is very hard of hearing. She does not have her cochlear implants with her here at the hospital. She is eating breakfast upon interview and is in no distress. She states that she does not have any pain. She is alert and oriented to month and day of the week. Ruth remembers having the fall at home and reports she has been frequently dizzy lately. She has not been using her incentive spirometer. Voiding fine. States she uses a walker at home but has concerns for her balance. PCP is Dr. Keys. Date of Admission Apr 08, 2022 at 21:21 Date Seen by a Provider: Apr 09, 2022 Time Seen by a Provider: 08:45 I consulted on this patient on 04/09/22 08:45 Attending Physician Fely Keys DO Admitting Physician Admitting Physician: Fely Keys DO Attending Physician: Fely Keys DO Consult Allergies and Home Medications Allergies Coded Allergies: No Known Drug Allergies (Unverified , 02/04/17) Patient Home Medication List Home Medication List Reviewed: Yes Acetaminophen (Tylenol Extra Strength) 500 Mg Tablet, 500-1,000 MG PO Q6H PRN for PAIN-MILD (1-4), (Reported) Entered as Reported by: ANASTASIIA RHOADES on 04/09/221319 Last Action: Reviewed Ascorbic Acid (Vitamin C) 1,000 Mg Tablet, 1,000 MG PO DAILY, (Reported) Entered as Reported by: ANASTASIIA RHOADES on 04/09/221319 Last Action: Reviewed Calcium Carbonate (Tums Ultra) 400 Mg Calcium (1000 Mg) Tab.chew, 1,000 MG PO Q6H PRN for HEARTBURN, (Reported) Entered as Reported by: ANASTASIIA RHOADES on 04/09/221319 Last Action: Reviewed Dicyclomine HCl (Dicyclomine HCl) 10 Mg Capsule, 10 MG PO TIDAC, (Reported) Entered as Reported by: ANASTASIIA RHOADES on 04/09/221319 Last Action: Reviewed Docusate Sodium (Docusate Sodium) 100 Mg Capsule, 100 MG PO DAILY, (Reported) Entered as Reported by: ANASTASIIA RHOADES on 04/09/221319 Last Action: Reviewed Docusate Sodium (Docusate Sodium) 100 Mg Capsule, 100 MG PO BID PRN for CONSTIPATION-1ST LINE, (Reported) Entered as Reported by: ANASTASIIA RHOADES on 04/09/221319 Last Action: Reviewed Loratadine (Loratadine) 10 Mg Tablet, 10 MG PO DAILY, (Reported) Entered as Reported by: ANASTASIIA RHOADES on 04/09/221319 Last Action: Reviewed Mirabegron (Myrbetriq) 50 Mg Tab.er.24h, 50 MG PO HS, (Reported) Entered as Reported by: ANASTASIIA RHOADES on 04/09/221319 Last Action: Reviewed Mirtazapine (Mirtazapine) 7.5 Mg Tablet, 7.5 MG PO HS, (Reported) Entered as Reported by: ANASTASIIA RHOADES on 04/09/221319 Last Action: Reviewed Pantoprazole Sodium (Pantoprazole Sodium) 40 Mg Tablet.dr, 40 MG PO BID, (Reported) Entered as Reported by: ANASTASIIA RHOADES on 04/09/221319 Last Action: Reviewed Polyethylene Glycol 3350 (Miralax) 17 Gram Powd.pack, 17 GM PO DAILY PRN for CONSTIPATION-2ND LINE, (Reported) Entered as Reported by: ANASTASIIA RHOADES on 04/09/221319 Last Action: Reviewed Rivaroxaban (Xarelto Tablet) 20 Mg Tablet, 20 MG PO HS, (Reported) Entered as Reported by: ANASTASIIA RHOADES on 04/09/221319 Last Action: Reviewed Sennosides (Senna) 8.6 Mg Tablet, 8.6 MG PO BID PRN for CONSTIPATION-5TH LINE, (Reported) Entered as Reported by: ANASTASIIA RHOADES on 04/09/221319 Last Action: Reviewed Simethicone (Gas-X) 125 Mg Capsule, 125-250 MG PO BID PRN for INDIGESTION, (Reported) Entered as Reported by: ANASTASIIA RHOADES on 04/09/221319 Last Action: Reviewed Sodium Fluoride (Denta 5000 Plus) 1.1 % Sodium Fluoride Cream..g., 1 EA DT UD, (Reported) Entered as Reported by: ANASTASIIA RHOADES on 04/09/221319 Last Action: Reviewed Sulfamethoxazole/Trimethoprim (Bactrim Ds Tablet) 800 Mg-160 Mg Tablet, 1 EACH PO BID, (Reported) Entered as Reported by: ANASTASIIA RHOADES on 04/09/221319 Last Action: Reviewed Tramadol HCl (Tramadol HCl) 50 Mg Tablet, 50 MG PO TID PRN for PAIN-MODERATE (5- 7), (Reported) Entered as Reported by: ANASTASIIA RHOADES on 04/09/221319 Last Action: Reviewed Venlafaxine HCl (Venlafaxine HCl ER) 37.5 Mg Tab.er.24, 112.5 MG PO DAILY, (Reported) Entered as Reported by: ANASTASIIA RHOADES on 04/09/221319 Last Action: Reviewed Discontinued Medications Acetaminophen (Tylenol Extra Strength) 500 Mg Tablet, 500-1,000 MG PO Q6H PRN for PAIN-MILD (1-4), (Reported) Discontinued Reason: No Longer Taking Entered as Reported by: ANASTASIIA RHOADES on 10/16/20 1543 Last Action: Discontinued Docusate Sodium (Dok) 100 Mg Capsule, 100 MG PO BID Discontinued Reason: No Longer Taking Prescribed by: FELY KEYS on 10/22/20 1741 Last Action: Discontinued Docusate Sodium (Colace) 100 Mg Capsule, 100 MG PO DAILY Discontinued Reason: No Longer Taking Prescribed by: EMIR XIAO on 02/09/21 1232 Last Action: Discontinued Hydrocodone/Acetaminophen (Hydrocodone-Acetamin 5-325 mg) 1 Each Tablet, 1 TAB PO Q6H PRN for PAIN-MODERATE (5-7) Discontinued Reason: No Longer Taking Prescribed by: EMIR XIAO on 02/09/21 1226 Last Action: Discontinued Imipramine HCl (Imipramine HCl) 25 Mg Tablet, 25 MG PO HS Discontinued Reason: No Longer Taking Prescribed by: FELY KEYS on 10/22/201740 Last Action: Discontinued Lactulose (Lactulose) 20 Gm/30 Ml Solution, 10 GM PO BID PRN for CONSTIPATION- 2ND LINE Discontinued Reason: No Longer Taking Prescribed by: FELY KEYS on 10/22/201740 Last Action: Discontinued Melatonin (Melatonin) 3 Mg Tablet, 3 MG PO HS, (Reported) Discontinued Reason: No Longer Taking Entered as Reported by: ANASTASIIA RHOADES on 10/11/201211 Last Action: Discontinued Omeprazole (Omeprazole) 20 Mg Capsule.dr, 20 MG PO 0700,1600, (Reported) Discontinued Reason: No Longer Taking Entered as Reported by: MONTY HAMM on 02/04/17 1248 Last Action: Discontinued Polyethylene Glycol 3350 (Polyethylene Glycol 3350) 17 Gm Powd.pack, 17 GM PO BID Discontinued Reason: No Longer Taking Prescribed by: FELY KEYS on 10/22/201740 Last Action: Discontinued Polyethylene Glycol 3350 (Miralax) 17 Gram Powd.pack, 17 GM PO DAILY PRN for CONSTIPATION-2ND LINE, (Reported) Discontinued Reason: Duplicate Order Entered as Reported by: ANASTASIIA RHOADES on 04/09/22 1320 Last Action: Discontinued Rivaroxaban (Xarelto) 20 Mg Tablet, 20 MG PO DAILY, (Reported) Discontinued Reason: No Longer Taking Entered as Reported by: ANASTASIIA RHOADES on 10/11/20 121 Last Action: Discontinued Sennosides/Docusate Sodium (Stool Softener-Laxative Tablet) 1 Each Tablet, 1 EA PO BID Discontinued Reason: No Longer Taking Prescribed by: FELY KEYS on 10/22/201740 Last Action: Discontinued Simethicone (Gas Relief) 125 Mg Tab.chew, 125-250 MG PO BID PRN for INDIGESTION, (Reported) Discontinued Reason: No Longer Taking Entered as Reported by: ANASTASIIA RHOADES on 10/16/20 1543 Last Action: Discontinued Tramadol HCl (Tramadol HCl) 50 Mg Tablet, 50 MG PO TID PRN for PAIN-MODERATE (5- 7) Discontinued Reason: No Longer Taking Prescribed by: FELY KEYS on 10/22/20 1741 Last Action: Discontinued Tramadol HCl (Ultram) 50 Mg Tablet, 50 MG PO Q6H PRN for PAIN-MODERATE (5-7) Discontinued Reason: No Longer Taking Prescribed by: EMIR XIAO on 02/05/21 1755 Last Action: Discontinued Venlafaxine HCl (Venlafaxine HCl ER) 75 Mg Cap.er.24h, 150 MG PO DAILY, (R eported) Discontinued Reason: No Longer Taking Entered as Reported by: ANASTASIIA RHOADES on 10/11/20 1210 Last Action: Discontinued Past Pisdnie-Ylmfft-Gihalf Hx Patient Social History Tobacco Use?: No Smoking Status: Never a Smoker Smokeless Tobacco Frequency: Never a User Use of E-Cig and/or Vaping dev: No Substance use?: No Alcohol Use?: No Pt feels they are or have been: No Immunizations Up To Date Date of Influenza Vaccine: Dec 07, 2019 First/Initial COVID19 Vaccinat: BOOSTER IN NOVEMBER Second COVID19 Vaccination Radu: BOOSTER IN NOVEMBER Tetanus Booster (TDap): More Than 5 Years Hepatitis A: No Hepatitis B: No PED Vaccines UTD: Yes Date of Pneumonia Vaccine: Feb 25, 2019 Seasonal Allergies Seasonal Allergies: No Current Status status: No status: No Advance Directives: Yes Advance Directive Location: Dr. Keys has on file-per pt we should have on file as well. Communicates: Points Primary Language: Belarusian Preferred Spoken Language: Belarusian Is interpretation needed?: No Sensory deficits: Vision impairment, Hearing impairment Additional sensory deficits: cochlear implant to right forgot to bring to [facility] Implanted or [employer] D: CPAP, Orthopedic hardware Past Medical History Surgeries: Abdominal, Cardiac, Ear Surgery, Gallbladder, Joint Replacement, Orthopedic, Valve Replacement Pneumonia, Pulmonary Embolism, Sleep Apnea Currently Using CPAP: No Currently Using BIPAP: Yes Chronic Edema/Swelling, Peripheral Vascular, Valvular Heart Disease Stroke RN OUTPATIENT SURGERY History: Menopausal Sexually Transmitted Disease: No HIV/AIDS: No Abdominal Hernia, Gastroesophageal Reflux, Hiatal Hernia, Irritable Bowel Arthritis, Chronic Back Pain Cataract 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, Bilateral Hearing Aide Sleep Difficulties Blood Disorders: No Adverse Reaction/Blood Tranf: No Family Medical History Diabetes mellitus 19 FATHER 19 MOTHER FH: heart disease 19 MOTHER FH: muscular dystrophy G8 BROTHER (Friedreich's Ataxia) Hypertension Myocardial infarction 19 MOTHER Diabetes PAST SURGICAL HISTORY: -RIGHT COCHLEAR IMPLANT -HERNIA REPAIR -CHOLECYSTECTOMY -EGD/COLONOSCOPY -LUMBAR EPIDURAL STEROID INJECTIONS -RIGHT HIP REPLACEMENT 02/05/2017 -LEFT HIP FX/ORIF 09/2020 -CARDIAC CATH 2012-NO SIGNFICANT CAD, NO INTERVENTION -CARDIAC CATH 12/27/2019--NO SIGNFICANT CAD. AORTIC STENOSIS/NEED FOR VALVE REPLACEMENT; NO INTERVENTION. EF 55-65%. DONE BY DR. ELLISON -AORTIC VALVE REPLACEMENT Review of Systems Constitutional: dizziness; No fever EENTM: hearing loss Respiratory: cough; No dyspnea on exertion, No short of breath Cardiovascular: No chest pain, No palpitations, No syncope Gastrointestinal: No abdominal pain, No loss of appetite, No nausea, No vomiting Physical Exam Vital Signs Vital Signs - First Documented 04/08/22 04/08/22 18:22 22:51 Temp 36.4 Pulse 95 Resp 16 B/P (MAP) 171/87 (115) Pulse Ox 95 O2 Delivery Room Air FiO2 21 Capillary Refill : Less Than 3 Seconds Height, Weight, BMI Height: 5'3.00" Weight: 174lbs. 12.8oz. 79.229245xs; 27.26 BMI Method:Stated General Appearance: No Apparent Distress, WD/WN Eyes: Bilateral Eye PERRL, Bilateral Eye EOMI HEENT: PERRL/EOMI, Moist Mucous Membranes, Other (very hard of hearing) Neck: Non Tender, Supple Respiratory: Chest Non Tender, Lungs Clear, Normal Breath Sounds, No Accessory Muscle Use, No Respiratory Distress Cardiovascular: Regular Rate, Rhythm, No Murmur, Normal Peripheral Pulses Gastrointestinal: Normal Bowel Sounds, Non Tender, Soft Back: No Vertebral Tenderness Extremity: No Calf Tenderness, No Pedal Edema Neurologic/Psychiatric: Alert, Normal Mood/Affect Skin: Normal Color, Warm/Dry Lymphatic: No Adenopathy Comments pt reports headache Assessment/Plan Assessment and Plan Unwitnessed fall with minor head injury on anticoagulation -Prothrombin time was 15.7 on 04/08 -Holding Xarelto at this time -CXR noted atelectasis, but no definite lung infiltrates, plus cardiomegaly -CT of head/cervical spine revealed no evidence of acute intracranial processes or cervical fracture -Pelvis x-ray showed no acute fracture or dislocation. Minor head injury, no loss of consciousness -Pt reports a headache at the time, admin Tylenol -PT evaluation Elevated Troponin -Troponin on 04/08 was 0.043 -Cardiology consulted -Pt had Stress testing in August -ECHO ordered Hx of mitral valve repair Hx of CVA Admission Diagnosis Unwitnessed fall with minor head injury on anticoagulation Admission Status: Inpatient Order (span 2 midnights) Reason for Inpatient Admission: Unwitnessed fall with minor head injury on anticoagulation FELY KEYS 04/10/22 0520: Allergies and Home Medications Allergies Coded Allergies: No Known Drug Allergies (Unverified , 02/04/17) Patient Home Medication List Acetaminophen (Tylenol Extra Strength) 500 Mg Tablet, 500-1,000 MG PO Q6H PRN for PAIN-MILD (1-4), (Reported) Entered as Reported by: ANASTASIIA RHOADES on 04/09/221319 Last Action: Reviewed Ascorbic Acid (Vitamin C) 1,000 Mg Tablet, 1,000 MG PO DAILY, (Reported) Entered as Reported by: ANASTASIIA RHOADES on 04/09/221319 Last Action: Reviewed Calcium Carbonate (Tums Ultra) 400 Mg Calcium (1000 Mg) Tab.chew, 1,000 MG PO Q6H PRN for HEARTBURN, (Reported) Entered as Reported by: ANASTASIIA RHOADES on 04/09/221319 Last Action: Reviewed Dicyclomine HCl (Dicyclomine HCl) 10 Mg Capsule, 10 MG PO TIDAC, (Reported) Entered as Reported by: ANASTASIIA RHOADES on 04/09/221319 Last Action: Reviewed Docusate Sodium (Docusate Sodium) 100 Mg Capsule, 100 MG PO DAILY, (Reported) Entered as Reported by: ANASTASIIA RHOADES on 04/09/221319 Last Action: Reviewed Docusate Sodium (Docusate Sodium) 100 Mg Capsule, 100 MG PO BID PRN for CONSTIPATION-1ST LINE, (Reported) Entered as Reported by: ANASTASIIA RHOADES on 04/09/221319 Last Action: Reviewed Loratadine (Loratadine) 10 Mg Tablet, 10 MG PO DAILY, (Reported) Entered as Reported by: ANASTASIIA HROADES on 04/09/221319 Last Action: Reviewed Mirabegron (Myrbetriq) 50 Mg Tab.er.24h, 50 MG PO HS, (Reported) Entered as Reported by: ANASTASIIA RHOADES on 04/09/221319 Last Action: Reviewed Mirtazapine (Mirtazapine) 7.5 Mg Tablet, 7.5 MG PO HS, (Reported) Entered as Reported by: ANASTASIIA RHOADES on 04/09/221319 Last Action: Reviewed Pantoprazole Sodium (Pantoprazole Sodium) 40 Mg Tablet.dr, 40 MG PO BID, (Reported) Entered as Reported by: ANASTASIIA RHOADES on 04/09/221319 Last Action: Reviewed Polyethylene Glycol 3350 (Miralax) 17 Gram Powd.pack, 17 GM PO DAILY PRN for CONSTIPATION-2ND LINE, (Reported) Entered as Reported by: ANASATSIIA RHOADES on 04/09/221319 Last Action: Reviewed Rivaroxaban (Xarelto Tablet) 20 Mg Tablet, 20 MG PO HS, (Reported) Entered as Reported by: ANASTASIIA RHOADES on 04/09/221319 Last Action: Reviewed Sennosides (Senna) 8.6 Mg Tablet, 8.6 MG PO BID PRN for CONSTIPATION-5TH LINE, (Reported) Entered as Reported by: ANASTASIIA RHOADES on 04/09/221319 Last Action: Reviewed Simethicone (Gas-X) 125 Mg Capsule, 125-250 MG PO BID PRN for INDIGESTION, (Reported) Entered as Reported by: ANASTASIIA RHOADES on 04/09/221319 Last Action: Reviewed Sodium Fluoride (Denta 5000 Plus) 1.1 % Sodium Fluoride Cream..g., 1 EA DT UD, (Reported) Entered as Reported by: ANASTASIIA RHOADES on 04/09/221319 Last Action: Reviewed Sulfamethoxazole/Trimethoprim (Bactrim Ds Tablet) 800 Mg-160 Mg Tablet, 1 EACH PO BID, (Reported) Entered as Reported by: ANASTASIIA RHOADES on 04/09/221319 Last Action: Reviewed Tramadol HCl (Tramadol HCl) 50 Mg Tablet, 50 MG PO TID PRN for PAIN-MODERATE (5- 7), (Reported) Entered as Reported by: ANASTASIIA RHOADES on 04/09/22 1320 Last Action: Reviewed Venlafaxine HCl (Venlafaxine HCl ER) 37.5 Mg Tab.er.24, 112.5 MG PO DAILY, (Reported) Entered as Reported by: ANASTASIIA RHOADES on 04/09/22 1320 Last Action: Reviewed Discontinued Medications Acetaminophen (Tylenol Extra Strength) 500 Mg Tablet, 500-1,000 MG PO Q6H PRN for PAIN-MILD (1-4), (Reported) Discontinued Reason: No Longer Taking Entered as Reported by: ANASTASIIA RHOADES on 10/16/20 1543 Last Action: Discontinued Docusate Sodium (Dok) 100 Mg Capsule, 100 MG PO BID Discontinued Reason: No Longer Taking Prescribed by: FELY KEYS on 10/22/201740 Last Action: Discontinued Docusate Sodium (Colace) 100 Mg Capsule, 100 MG PO DAILY Discontinued Reason: No Longer Taking Prescribed by: EMIR XIAO on 02/09/21 1232 Last Action: Discontinued Hydrocodone/Acetaminophen (Hydrocodone-Acetamin 5-325 mg) 1 Each Tablet, 1 TAB PO Q6H PRN for PAIN-MODERATE (5-7) Discontinued Reason: No Longer Taking Prescribed by: EMIR XIAO on 02/09/21 1226 Last Action: Discontinued Imipramine HCl (Imipramine HCl) 25 Mg Tablet, 25 MG PO HS Discontinued Reason: No Longer Taking Prescribed by: FELY KEYS on 10/22/201740 Last Action: Discontinued Lactulose (Lactulose) 20 Gm/30 Ml Solution, 10 GM PO BID PRN for CONSTIPATION- 2ND LINE Discontinued Reason: No Longer Taking Prescribed by: FELY KEYS on 10/22/201740 Last Action: Discontinued Melatonin (Melatonin) 3 Mg Tablet, 3 MG PO HS, (Reported) Discontinued Reason: No Longer Taking Entered as Reported by: ANASTASIIA RHOADES on 10/11/20 1212 Last Action: Discontinued Omeprazole (Omeprazole) 20 Mg Capsule.dr, 20 MG PO 0700,1600, (Reported) Discontinued Reason: No Longer Taking Entered as Reported by: MONTY HAMM on 02/04/17 1248 Last Action: Discontinued Polyethylene Glycol 3350 (Polyethylene Glycol 3350) 17 Gm Powd.pack, 17 GM PO BID Discontinued Reason: No Longer Taking Prescribed by: FELY KEYS on 10/22/201740 Last Action: Discontinued Polyethylene Glycol 3350 (Miralax) 17 Gram Powd.pack, 17 GM PO DAILY PRN for CONSTIPATION-2ND LINE, (Reported) Discontinued Reason: Duplicate Order Entered as Reported by: ANASTASIIA RHOADES on 04/09/22 1320 Last Action: Discontinued Rivaroxaban (Xarelto) 20 Mg Tablet, 20 MG PO DAILY, (Reported) Discontinued Reason: No Longer Taking Entered as Reported by: ANASTASIIA RHOADES on 10/11/20 1210 Last Action: Discontinued Sennosides/Docusate Sodium (Stool Softener-Laxative Tablet) 1 Each Tablet, 1 EA PO BID Discontinued Reason: No Longer Taking Prescribed by: FELY KEYS on 10/22/201740 Last Action: Discontinued Simethicone (Gas Relief) 125 Mg Tab.chew, 125-250 MG PO BID PRN for INDIGESTION, (Reported) Discontinued Reason: No Longer Taking Entered as Reported by: ANASTASIIA RHOADES on 10/16/20 1543 Last Action: Discontinued Tramadol HCl (Tramadol HCl) 50 Mg Tablet, 50 MG PO TID PRN for PAIN-MODERATE (5- 7) Discontinued Reason: No Longer Taking Prescribed by: FELY KEYS on 10/22/201740 Last Action: Discontinued Tramadol HCl (Ultram) 50 Mg Tablet, 50 MG PO Q6H PRN for PAIN-MODERATE (5-7) Discontinued Reason: No Longer Taking Prescribed by: EMIR XIAO on 02/05/21 1755 Last Action: Discontinued Venlafaxine HCl (Venlafaxine HCl ER) 75 Mg Cap.er.24h, 150 MG PO DAILY, (Reported) Discontinued Reason: No Longer Taking Entered as Reported by: ANASTASIIA RHOADES on 10/11/20 121 Last Action: Discontinued Past Aiearoh-Gqhvwt-Ofaqsi Hx Family Medical History Diabetes mellitus 19 FATHER 19 MOTHER FH: heart disease 19 MOTHER FH: muscular dystrophy G8 BROTHER (Friedreich's Ataxia) Hypertension Myocardial infarction 19 MOTHER Supervisory-Addendum Brief Verification & Attestation Participated in pt care: history, MDM, physical Personally performed: exam, history, MDM, supervision of care Care discussed with: Medical Student Procedures: n/a Results interpretation: Verified all documentation Verification and Attestation of Medical Student E/M Service A medical student performed and documented this service in my presence. I reviewed and verified all information documented by the medical student and made modifications to such information, when appropriate. I personally performed the physical exam and medical decision making. Fely Keys, Apr 10, 2022,05:20 JENNA SAWANT Apr 09, 2022 13:29 FELY KEYS DO Apr 10, 2022 05:20
--- NOTE | 2022-04-09 14:15 | Consultation-Cardiology ---
HPI-Cardiology Cardiology Consultation Date of Consultation 04/09/22 Date of Admission Time Seen by Provider: 08:45 Indication: unwitnessed fall, mildly elevated troponin HPI Patient is an 86 y/o female, resident of [facility]. History of nonobstuc tive CAD, TAVR, CVA post TAVR, HTN, frequent falls. Presented to the ER after having an unwitnessed fall. Patient reports she was bending over to pick something up, fell over and struck her head. Does not believe she passed out. Denies any recent chest pain or dyspnea. Primary creative developer is Dr. Brizuela. Home Medications & Allergies Allergies: Coded Allergies: No Known Drug Allergies (Unverified , 02/04/17) Home Medication List Reviewed: Yes KES-Hxqiia-Eyksmx Hx Patient Social History Marital Status: single Employed/Student: retired Smoking Status: Never a Smoker Recent Hopitalizations: No Have you traveled recently?: No Alcohol Use?: No Immunizations Up To Date Date of Pneumonia Vaccine: Feb 25, 2019 Date of Influenza Vaccine: Dec 07, 2019 Past Medical History hx TAVR, CVA, HTN Family Medical History Significant Family History: Diabetes Family History: Diabetes mellitus 19 FATHER 19 MOTHER FH: heart disease 19 MOTHER FH: muscular dystrophy G8 BROTHER (Friedreich's Ataxia) Hypertension Myocardial infarction 19 MOTHER Review of Systems-General Review of Systems Constitutional: dizziness; No fever EENTM: hearing loss Respiratory: cough; No dyspnea on exertion, No short of breath Cardiovascular: No chest pain, No palpitations, No syncope Gastrointestinal: No abdominal pain, No loss of appetite, No nausea, No vomiting Genitourinary: no symptoms reported Musculoskeletal: no symptoms reported Skin: no symptoms reported Psychiatric/Neurological: No Symptoms Reported; Denies Headache, Denies Numbness, Denies Paresthesia, Denies Tingling Reviewed Test Results Reviewed Test Results Lab Laboratory Tests 04/08/22 18:46: White Blood Count 5.6, Red Blood Count 4.14, Hemoglobin 12.2, Hematocrit 38, Mean Corpuscular Volume 93, Mean Corpuscular Hemoglobin 30, Mean Corpuscular Hemoglobin Concent 32, Red Cell Distribution Width 16.3H, Platelet Count 143, Mean Platelet Volume 10.1, Immature Granulocyte % (Auto) 1, Neutrophils (%) (Auto) 68, Lymphocytes (%) (Auto) 19, Monocytes (%) (Auto) 9, Eosinophils (%) (Auto) 3, Basophils (%) (Auto) 0, Neutrophils # (Auto) 3.8, Lymphocytes # (Auto) 1.1, Monocytes # (Auto) 0.5, Eosinophils # (Auto) 0.2, Basophils # (Auto) 0.0, Immature Granulocyte # (Auto) 0.0, Percent Immature Platelet Fraction 2.3, Prothrombin Time 15.7H, INR Comment 1.2, Activated Partial Thromboplast Time 32, Sodium Level 138, Potassium Level 4.2, Chloride Level 105, Carbon Dioxide Level 21, Anion Gap 12, Blood Urea Nitrogen 20H, Creatinine 1.05, Estimat Glomerular Filtration Rate 52, BUN/Creatinine Ratio 19, Glucose Level 194H, Calcium Level 9.2, Corrected Calcium 9.4, Magnesium Level 2.0, Total Bilirubin 0.3, Aspartate Amino Transf (AST/SGOT) 18, Alanine Aminotransferase (ALT/SGPT) 16, Alkaline Phosphatase 163H, Total Creatine Kinase 47, Creatine Kinase MB 1.6, Myoglobin 55.6, Troponin I 0.043H, B-Type Natriuretic Peptide 23.4, Total Protein 7.2, Al bumin 3.8 04/09/22 05:24: Glucometer 115H 04/09/22 06:04: White Blood Count 4.2L, Red Blood Count 3.89, Hemoglobin 11.4L, Hematocrit 36, Mean Corpuscular Volume 94, Mean Corpuscular Hemoglobin 29, Mean Corpuscular Hemoglobin Concent 31L, Red Cell Distribution Width 16.1H, Platelet Count 133, Mean Platelet Volume 10.5, Immature Granulocyte % (Auto) 1, Neutrophils (%) (Auto) 65, Lymphocytes (%) (Auto) 21, Monocytes (%) (Auto) 9, Eosinophils (%) (Auto) 4, Basophils (%) (Auto) 0, Neutrophils # (Auto) 2.8, Lymphocytes # (Auto) 0.9L, Monocytes # (Auto) 0.4, Eosinophils # (Auto) 0.2, Basophils # (Auto) 0.0, Immature Granulocyte # (Auto) 0.0, Percent Immature Platelet Fraction 2.3, Sodium Level 139, Potassium Level 4.3, Chloride Level 107, Carbon Dioxide Level 24, Anion Gap 8, Blood Urea Nitrogen 16, Creatinine 0.85, Estimat Glomerular Filtration Rate 68, BUN/Creatinine Ratio 19, Glucose Level 113H, Calcium Level 8.8, Corrected Calcium 9.3, Total Bilirubin 0.4, Aspartate Amino Transf (AST/SGOT) 15, Alanine Aminotransferase (ALT/SGPT) 17, Alkaline Phosphatase 148H , Total Protein 6.4, Albumin 3.4, Triglycerides Level 83, Cholesterol Level 178, LDL Cholesterol Direct 108, VLDL Cholesterol 17, HDL Cholesterol 53 04/09/22 11:13: Glucometer 149H ECG Impression ECG Initial ECG Rhythm: Normal Sinus Physical Exam Physical Exam Vital Signs Vital Signs - First Documented 04/08/22 04/08/22 18:22 22:51 Temp 36.4 Pulse 95 Resp 16 B/P (MAP) 171/87 (115) Pulse Ox 95 O2 Delivery Room Air FiO2 21 Capillary Refill : Less Than 3 Seconds Height, Weight, BMI Height: 5'3.00" Weight: 174lbs. 12.8oz. 79.942228kd; 27.26 BMI Method:Stated General Appearance: No Apparent Distress, WD/WN Eyes: Bilateral Eye PERRL, Bilateral Eye EOMI HEENT: PERRL/EOMI, Moist Mucous Membranes, Other (very hard of hearing) Neck: Non Tender, Supple Respiratory: Chest Non Tender, Lungs Clear, Normal Breath Sounds, No Accessory Muscle Use, No Respiratory Distress Cardiovascular: Regular Rate, Rhythm, No Murmur, Normal Peripheral Pulses Gastrointestinal: Normal Bowel Sounds, Non Tender, Soft Back: No Vertebral Tenderness Extremity: No Calf Tenderness, No Pedal Edema Neurologic/Psychiatric: Alert, Normal Mood/Affect Skin: Normal Color, Warm/Dry Lymphatic: No Adenopathy A/P-Cardiology Admission Diagnosis Unwitnessed fall CAD hx TAVR hx CVA Assessment/Plan Unwittnessed fall, patient reports she was bending over to pick object up off the floor, became dizzy and fell backwards. Denies any syncope. Will continue on telemetry, continue to monitor. I will evaluate 2D Echo Nonobstructive coronary artery disease, Cardiac cath of 12-27-2019: No signif CAD. Normal right heart pressures MPI on 08/16/21: No ischemia or infarction, LVEF 67% Minimally elevated troponin, EKG showing SR with no acute ST changes. H/o aortic stenosis, S/P TAVR by Dr. Chang at [facility] June 2020 - subsquent CVA requiring transfer to [facility] neurology for thromboe mbolectomy by Dr. Ornelas (neuro-surgery) and Dr. De Santiago (neurologist) - per daughters report (records not available) - Echocardiogram of 07-02-21 showed LVEF 50-55%. Grade 1 diastolic dysfunction. There is a bioprosthetic aortic valve with mild stenosis. Preak pressure gradient across the valve is approx 15 mmHg with trivial regurg. PASP 25-30 mmHg I will reevaluate 2D Echo H/o CVA post TAVR in June 2020 treated with R MCA thromboembolectomy at [place], with improvement but not complete resolution of L-sided weakness and L-sided visual field cut H/O Right superficial femoral artery pseudoaneursym after cardiac cath of Dec 27, 2019, treated with thrombin injection by Dr. 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 Thank you for allowing us to participate in the management of Ms. Sierra. This is Lilliam Becerril PA-C, as a scribe for Dr. Wade Patient was seen and evaluated with Lilliam, I interviewed and examined the patient, discussed the management plan with Lilliam, I agree with the current scribed note From the cardiac standpoint patient has mild elevation in troponin, known to have nonobstructive coronary artery disease, last stress test showed no ischemia I recommend conservative management Continue to monitor, reevaluate 2D echo. LILLIAM PELLETIER Apr 09, 2022 14:15 TANYA WADE MD Apr 09, 2022 17:14
[2022-04-09] MEDS ORDERED: RIVAROXABAN 20 MG TABLET (XARELTO) PO SCH (17:00)
[2022-04-09] MEDS: ACETAMINOPHEN 325 MG TABLET PO PRN (20:46)
[2022-04-09] MEDS ORDERED: MIRTAZAPINE 15 MG (REMERON) TAB PO SCH (21:00)
[2022-04-10 03:01] VITALS: BP 140/64
[2022-04-10] MEDS: NS IV 1000 ML 1,000 ML IV SCH (05:02)
[2022-04-10] MEDS: DICYCLOMINE 10 MG (BENTYL) CAP PO SCH ×2 (05:03→11:55)
[2022-04-10] MEDS: inSUlin ASPART (NovoLOG) 1 UNIT/0.01 ML (CHARGE PER UNIT) SC SCH ×2 (05:06→11:21)
[2022-04-10 05:48] LABS: HEMATOCRIT 36 % (35-52)
[2022-04-10 05:50] LABS: BASOPHILS % (AUTO) 0 % (0-10); EOSINOPHILS # (AUTO) 0.2 10^3/uL (0.0-0.3); EOSINOPHILS % (AUTO) 4 % (0-10); HEMOGLOBIN 11.2 g/dL (11.5-16.0); LYMPHOCYTES # (AUTO) 1.3 10^3/uL (1.0-4.0); LYMPHOCYTES % (AUTO) 32 % (12-44); MEAN CORPUSCULAR HEMOGLOBIN 29 pg (25-34); MEAN CORPUSCULAR HGB CONC 31 g/dL (32-36); MEAN CORPUSCULAR VOLUME 94 fL (80-99); MEAN PLATELET VOLUME 10.6 fL (9.0-12.2); MONOCYTES # (AUTO) 0.5 10^3/uL (0.0-1.0); MONOCYTES % (AUTO) 12 % (0-12); NEUTROPHILS % (AUTO) 51 % (42-75); PLATELET COUNT 133 10^3/uL (130-400)
[2022-04-10 06:07] LABS: ALBUMIN 3.3 GM/DL (3.2-4.5); BILIRUBIN,TOTAL 0.4 MG/DL (0.1-1.0); CALCIUM 8.6 MG/DL (8.5-10.1); CREATININE SERUM 0.79 MG/DL (0.60-1.30); TOTAL PROTEIN 6.2 GM/DL (6.4-8.2)
[2022-04-10] MEDS: PANTOPRAZOLE 40 MG (PROTONIX) TAB PO SCH (06:09)
[2022-04-10] MEDS: VENlafaxine XR 75 MG (EFFEXOR XR) CAP PO SCH (06:09)
[2022-04-10 07:44] VITALS: BP 148/70
[2022-04-10 08:26] VITALS: BP 148/70
[2022-04-10] MEDS: DOCUSATE SODIUM 100 MG (COLACE) CAP PO SCH (09:00)
[2022-04-10] MEDS: SENNOSIDES 8.6 MG (SENOKOT) TAB PO SCH (09:01)
[2022-04-10] MEDS: SENNA W/DOCUSATE (SENOKOT S) TABLET PO SCH (09:01)
[2022-04-10] MEDS: ASPIRIN E.C. 81 MG (ECOTRIN) TAB PO SCH (09:05)
--- NOTE | 2022-04-10 10:34 | Physical Therapy Daily Note ---
PT Daily Note-Current Subjective Patient agrees to PT. Pain Section J - Health Conditions 1. Rarely or not at all 2. Occasionally 3. Frequently 4. Almost constantly 8. Unable to answer Pain Effect on Sleep: 1 Pain Interference with Therapy: 1 Pain Interference w/Day-to-Day: 1 Mental Status Patient Orientation: Person Attachments: Oxygen, IV Transfers SCALE: Activities may be completed with or without assistive devices. 0-Gcfcssundr-aoawsfr completes the activity by him/herself with no assistance from a helper. 5-Set-up or Clean-up Assistance-helper sets up or cleans up; patient completes activity. [place] assists only prior to or following the activity. 4-Supervision or Touching Assistance-helper provides verbal cues and/or touching/steadying and/or contact guard assistance as patient completes ac tivity. Assistance may be provided throughout the activity or intermittently. 3-Partial/Moderate Assistance-helper does LESS THAN HALF the effort. [place] lifts, holds or supports trunk or limbs, but provides less than half the effort. 2-Substantial/Maximal Assistance-helper does MORE THAN HALF the effort. [place] lifts or holds trunk or limbs and provides more than half the effort. 3-Npjmdhaek-cphser does ALL the effort. Patient does none of the effort to complete the activity. Or, the assistance of 2 or more helpers is required for the patient to complete the activity. If activity was not attempted, code reason: 7-Patient Refused. 9-Not Applicable-not attempted and the patient did not perform the activity before the current illness, exacerbation or injury. 10-Not Attempted due to Environmental Limitations-(lack of equipment, weather restraints, etc.). 88-Not Attempted due to Medical Conditions or Safety Concerns. Sit to Stand (QC): 4 (SBA) no deviation with sit to stand Weight Bearing Right Lower Extremity: Right Weight Bearing/Tolerated Left Lower Extremity: Left Full Weight Bearing Gait Training Does the Patient Walk?: Yes Distance: 175' Walk 10 feet (QC): 4 Walk 50 ft with 2 Turns(QC): 4 Walk 150 ft (QC): 4 Gait Assistive Device: FWW slow, steady gait sequence Exercises Seated Therapy Exercises: Ankle pumps, Long arc quads Seated Reps: 15 Assessment Patient remains up in recliner with chair alarm activated and telesitter in room. Patient has no c/o patient. Per physician order, patient is WBAT bilateral LE. PT Usp Goals Bow Maker Gift Wrapping Goals PT Usp Goals Time Frame: Apr 23, 2022 Roll Left & Right (QC): 6 Sit to Lying (QC): 6 Lying-Sitting on Side/Bed(QC): 6 Sit to Stand (QC): 6 Chair/Gyz-mt-Nxavq Xfer(QC): 6 Toilet Transfer (QC): 6 Does the Patient Walk: Yes Walk 10 feet (QC): 6 Walk 50ft with 2 Turns (QC): 6 Walk 150 ft (QC): 6 Does the Pt use WC or Scooter?: No PT Plan Treatment/Plan Treatment Plan: Continue Plan of Care Treatment Duration: Apr 23, 2022 Frequency: 6 times per week Estimated Hrs Per Day: .5 hour per day Patient and/or Family Agrees t: Yes Time Time In: 1001 Time Out: 1012 DATE: Apr 10, 2022 Total Billed Treatment Time: 11 Total Billed Treatment 1 visit FA 10 min EVARISTO WHITE PT Apr 10, 2022 10:34
--- NOTE | 2022-04-10 11:08 | Cardiology Progress Note ---
Subjective Date Seen by Provider: Apr 10, 2022 Time Seen by Provider: 11:07 Subjective/Events-last exam Patient was seen at bedside, laying down comfortably. No new complaint. Review of Systems General: No Chills, No Night Sweats, No Fatigue, No Malaise, No Appetite, No Other HEENT: No Head Aches, No Visual Changes, No Eye Pain, No Ear Pain, No Dysphasia, No Sinus Congestion, No Post Nasal Drip, No Sore Throat, No Other Pulmonary: No Dyspnea, No Cough, No Pleuritic Chest Pain, No Other Cardiovascular: No: Chest Pain, Palpitations, Orthopnea, Paroxysmal Noc. Dyspnea, Edema, Lt Headedness, Other Objective-Cardiology Exam Last Set of Vital Signs Vital Signs 04/10/22 04/10/22 04/10/22 07:44 08:22 08:26 Temp 36.3 Pulse 79 Resp 18 B/P (MAP) 148/70 (96) Pulse Ox 95 O2 Delivery Nasal Cannula O2 Flow Rate 2.00 FiO2 28 I&O Intake and Output 04/10/22 00:00 Intake Total 1440 ml Output Total 950 ml Balance 490 ml Intake Oral 1440 ml Output Urine Total 950 ml # Voids 2 # Bowel Movements 3 General: Alert, Cooperative HEENT: Atraumatic, PERRLA Neck: Supple, No JVD, No Thyromegaly Lungs: Clear to Auscultation, Normal Air Movement Heart: Regular Rate, Normal S1, Normal S2, Other (Systolic murmur at the left sternal border) Abdomen: Normal Bowel Sounds, Soft, No Tenderness, No Hepatosplenomegaly, No Masses Extremities: No Clubbing, No Cyanosis, No Edema, Normal Pulses, No Tenderness/Swelling Skin: No Rashes, No Significant Lesion Neuro: Normal Speech, Normal Tone Psych/Mental Status: Mood NL Results Lab Laboratory Tests 04/10/22 05:28 A/P-Cardiology Admission Diagnosis Unwitnessed fall CAD hx TAVR hx CVA Assessment/Plan Unwittnessed fall, patient reports she was bending over to pick object up off the floor, became dizzy and fell backwards. Denies any syncope. Will continue on telemetry, continue to monitor. I will evaluate 2D Echo Nonobstructive coronary artery disease, Cardiac cath of 12-27-2019: No signif CAD. Normal right heart pressures MPI on 08/16/21: No ischemia or infarction, LVEF 67% Minimally elevated troponin, EKG showing SR with no acute ST changes. H/o aortic stenosis, S/P TAVR by Dr. Chang at [facility] June 2020 - subsquent CVA requiring transfer to [facility] for thromboembolectomy by Dr. Ornelas (neuro-surgery) and Dr. De Santiago (neurologist) - per daughters report (records not available) - Echocardiogram of 07-02-21 showed LVEF 50-55%. Grade 1 diastolic dysfunction. There is a bioprosthetic aortic valve with mild stenosis. Preak pressure gradient across the valve is approx 15 mmHg with trivial regurg. PASP 25-30 mmHg 2D echo was done on April 09, 2022 showing valve is functioning normally, normal LV function. H/o CVA post TAVR in June 2020 treated with R MCA thromboembolectomy at [place], [place], with improvement but not complete resolution of L-sided weakness and L-sided visual field cut H/O Right superficial femoral artery pseudoaneursym after cardiac cath of Dec 27, 2019, treated with thrombin injection by Dr. 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 TANYA BILLY MD Apr 10, 2022 11:08
[2022-04-10 11:37] VITALS: BP 138/78
[2022-04-10] MEDS ORDERED: ASPI-1238 PO (12:33)
[2022-04-10] MEDS ORDERED: ATOR20TA49 PO (12:33)
--- NOTE | 2022-04-10 12:33 | Discharge Summary ---
Diagnosis/Chief Complaint Date of Admission Apr 08, 2022 at 21:21 Date of Discharge Discharge Date: Apr 10, 2022 Discharge Diagnosis Unwitnessed fall with minor head injury on anticoagulation -Prothrombin time was 15.7 on 04/08 -Holding Xarelto at this time -CXR noted atelectasis, but no definite lung infiltrates, plus cardiomegaly -CT of head/cervical spine revealed no evidence of acute intracranial proces ses or cervical fracture -Pelvis x-ray showed no acute fracture or dislocation. Minor head injury, no loss of consciousness -Pt reports a headache at the time, admin Tylenol -PT evaluation Elevated Troponin -Troponin on 04/08 was 0.043 -Cardiology consulted -Pt had Stress testing in August -ECHO ordered Hx of mitral valve repair Hx of CVA Discharge Summary Discharge Physical Examination Allergies: Coded Allergies: No Known Drug Allergies (Unverified , 02/04/17) Vitals & I&Os Vital Signs Date Time Temp Pulse Resp B/P (MAP) Pulse Ox O2 Delivery O2 Flow Rate FiO2 04/10/22 11:37 37.0 81 18 138/78 (98) 93 Nasal Cannula 3.00 04/10/22 08:26 28 General Appearance: Alert, Cooperative, Other (O x 2) Respiratory: Clear to Auscultation Psych/Mental Status: Mental Status NL Hospital Course Was the Problem List Reviewed?: Yes Brief hospital course after falling at AD after recent multiple falls with closed head injury on OAC but CT revealed no evidence of subdural. PT OT consulted and the decision was made to move to ARU to optimize ambulation and ADL's in order to prevent falls. Labs (last 24 hrs) Laboratory Tests 04/08/22 18:46: White Blood Count 5.6, Red Blood Count 4.14, Hemoglobin 12.2, Hematocrit 38, Mean Corpuscular Volume 93, Mean Corpuscular Hemoglobin 30, Mean Corpuscular Hemoglobin Concent 32, Red Cell Distribution Width 16.3H, Platelet Count 143, Mean Platelet Volume 10.1, Immature Granulocyte % (Auto) 1, Neutrophils (%) (Auto) 68, Lymphocytes (%) (Auto) 19, Monocytes (%) (Auto) 9, Eosinophils (%) (Auto) 3, Basophils (%) (Auto) 0, Neutrophils # (Auto) 3.8, Lymphocytes # (Auto) 1.1, Monocytes # (Auto) 0.5, Eosinophils # (Auto) 0.2, Basophils # (Auto) 0.0, Immature Granulocyte # (Auto) 0.0, Percent Immature Platelet Fraction 2.3, Prothrombin Time 15.7H, INR Comment 1.2, Activated Partial Thromboplast Time 32, Sodium Level 138, Potassium Level 4.2, Chloride Level 105, Carbon Dioxide Level 21, Anion Gap 12, Blood Urea Nitrogen 20H, Creatinine 1.05, Estimat Glomerular Filtration Rate 52, BUN/Creatinine Ratio 19, Glucose Level 194H, Calcium Level 9.2, Corrected Calcium 9.4, Magnesium Level 2.0, Total Bilirubin 0.3, Aspartate Amino Transf (AST/SGOT) 18, Alanine Aminotransferase (ALT/SGPT) 16, Alkaline P hosphatase 163H, Total Creatine Kinase 47, Creatine Kinase MB 1.6, Myoglobin 55.6, Troponin I 0.043H, B-Type Natriuretic Peptide 23.4, Total Protein 7.2, Albumin 3.8 04/09/22 05:24: Glucometer 115H 04/09/22 06:04: White Blood Count 4.2L, Red Blood Count 3.89, Hemoglobin 11.4L, Hematocrit 36, Mean Corpuscular Volume 94, Mean Corpuscular Hemoglobin 29, Mean Corpuscular Hemoglobin Concent 31L, Red Cell Distribution Width 16.1H, Platelet Count 133, Mean Platelet Volume 10.5, Immature Granulocyte % (Auto) 1, Neutrophils (%) ( Auto) 65, Lymphocytes (%) (Auto) 21, Monocytes (%) (Auto) 9, Eosinophils (%) (Auto) 4, Basophils (%) (Auto) 0, Neutrophils # (Auto) 2.8, Lymphocytes # (Auto) 0.9L, Monocytes # (Auto) 0.4, Eosinophils # (Auto) 0.2, Basophils # (Auto) 0.0, Immature Granulocyte # (Auto) 0.0, Percent Immature Platelet Fraction 2.3, Sodium Level 139, Potassium Level 4.3, Chloride Level 107, Carbon Dioxide Level 24, Anion Gap 8, Blood Urea Nitrogen 16, Creatinine 0.85, Estimat Glomerular Filtration Rate 68, BUN/Creatinine Ratio 19, Glucose Level 113H, Calcium Level 8.8, Corrected Calcium 9.3, Total Bilirubin 0.4, Aspartate Amino Transf (AST/SGOT) 15, Alanine Aminotransferase (ALT/SGPT) 17, Alkaline Phosphatase 148H , Total Protein 6.4, Albumin 3.4, Mean Blood Glucose 140H, Hemoglobin A1c 6.5H, Triglycerides Level 83, Cholesterol Level 178, LDL Cholesterol Direct 108, VLDL Cholesterol 17, HDL Cholesterol 53 04/09/22 11:13: Glucometer 149H 04/09/22 16:01: Glucometer 123H 04/09/22 21:03: Glucometer 136H 04/10/22 05:06: Glucometer 108 04/10/22 05:28: White Blood Count 4.0L, Red Blood Count 3.84, Hemoglobin 11.2L, Hematocrit 36, Mean Corpuscular Volume 94, Mean Corpuscular Hemoglobin 29, Mean Corpuscular Hemoglobin Concent 31L, Red Cell Distribution Width 16.1H, Platelet Count 133, Mean Platelet Volume 10.6, Immature Granulocyte % (Auto) 1, Neutrophils (%) (Auto) 51, Lymphocytes (%) (Auto) 32, Monocytes (%) (Auto) 12, Eosinophils (%) (Auto) 4, Basophils (%) (Auto) 0, Neutrophils # (Auto) 2.0, Lymphocytes # (Auto) 1.3, Monocytes # (Auto) 0.5, Eosinophils # (Auto) 0.2, Basophils # (Auto) 0.0, Immature Granulocyte # (Auto) 0.0, Percent Immature Platelet Fraction 2.0, Sodium Level 141, Potassium Level 4.0, Chloride Level 109H, Carbon Dioxide Level 23, Anion Gap 9, Blood Urea Nitrogen 16, Creatinine 0.79, Estimat Glomerular Filtration Rate 74, BUN/Creatinine Ratio 20, Glucose Level 116H, Calcium Level 8.6, Corrected Calcium 9.2, Total Bilirubin 0.4, Aspartate Amino Transf (AST/SGOT) 19, Alanine Aminotransferase (ALT/SGPT) 22, Alkaline Phosphatase 146H , Total Protein 6.2L, Albumin 3.3 04/10/22 11:17: Glucometer 113H 04/10/22 15:43: Glucometer 142H Pending Labs Laboratory Tests 04/08/22 18:46: White Blood Count 5.6, Red Blood Count 4.14, Hemoglobin 12.2, Hematocrit 38, Mean Corpuscular Volume 93, Mean Corpuscular Hemoglobin 30, Mean Corpuscular Hemoglobin Concent 32, Red Cell Distribution Width 16.3, Platelet Count 143, Mean Platelet Volume 10.1, Immature Granulocyte % (Auto) 1, Neutrophils (%) (Auto) 68, Lymphocytes (%) (Auto) 19, Monocytes (%) (Auto) 9, Eosinophils (%) (Auto) 3, Basophils (%) (Auto) 0, Neutrophils # (Auto) 3.8, Lymphocytes # (Auto) 1.1, Monocytes # (Auto) 0.5, Eosinophils # (Auto) 0.2, Basophils # (Auto) 0.0, Immature Granulocyte # (Auto) 0.0, Percent Immature Platelet Fraction 2.3, Prothrombin Time 15.7, INR Comment 1.2, Activated Partial Thromboplast Time 32, Sodium Level 138, Potassium Level 4.2, Chloride Level 105, Carbon Dioxide Level 21, Anion Gap 12, Blood Urea Nitrogen 20, Creatinine 1.05, Estimat Glomerular Filtration Rate 52, BUN/Creatinine Ratio 19, Glucose Level 194, Calcium Level 9.2, Corrected Calcium 9.4, Magnesium Level 2.0, Total Bilirubin 0.3, Aspartate Amino Transf (AST/SGOT) 18, Alanine Aminotransferase (ALT/SGPT) 16, Alkaline Phosphatase 163, Total Creatine Kinase 47, Creatine Kinase MB 1.6, Myoglobin 55.6, Troponin I 0.043, B-Type Natriuretic Peptide 23.4, Total Protein 7.2, Albumin 3.8 04/09/22 05:24: Glucometer 115 04/09/22 06:04: White Blood Count 4.2, Red Blood Count 3.89, Hemoglobin 11.4, Hematocrit 36, Mean Corpuscular Volume 94, Mean Corpuscular Hemoglobin 29, Mean Corpuscular Hemoglobin Concent 31, Red Cell Distribution Width 16.1, Platelet Count 133, Mean Platelet Volume 10.5, Immature Granulocyte % (Auto) 1, Neutrophils (%) (Auto) 65, Lymphocytes (%) (Auto) 21, Monocytes (%) (Auto) 9, Eosinophils (%) (Auto) 4, Basophils (%) (Auto) 0, Neutrophils # (Auto) 2.8, Lymphocytes # (Auto) 0.9, Monocytes # (Auto) 0.4, Eosinophils # (Auto) 0.2, Basophils # (Auto) 0.0, Immature Granulocyte # (Auto) 0.0, Percent Immature Platelet Fraction 2.3, Sodium Level 139, Potassium Level 4.3, Chloride Level 107, Carbon Dioxide Level 24, Anion Gap 8, Blood Urea Nitrogen 16, Creatinine 0.85, Estimat Glomerular Filtration Rate 68, BUN/Creatinine Ratio 19, Glucose Level 113, Calcium Level 8.8, Corrected Calcium 9.3, Total Bilirubin 0.4, Aspartate Amino Transf (AST/SGOT) 15, Alanine Aminotransferase (ALT/SGPT) 17, Alkaline Phosphatase 148, Total Protein 6.4, Albumin 3.4, Mean Blood Glucose 140, Hemoglobin A1c 6.5, Triglycerides Level 83, Cholesterol Level 178, LDL Cholesterol Direct 108, VLDL Cholesterol 17, HDL Cholesterol 53 04/09/22 11:13: Glucometer 149 04/09/22 16:01: Glucometer 123 04/09/22 21:03: Glucometer 136 04/10/22 05:06: Glucometer 108 04/10/22 05:28: White Blood Count 4.0, Red Blood Count 3.84, Hemoglobin 11.2, Hematocrit 36, Mean Corpuscular Volume 94, Mean Corpuscular Hemoglobin 29, Mean Corpuscular Hemoglobin Concent 31, Red Cell Distribution Width 16.1, Platelet Count 133, Mean Platelet Volume 10.6, Immature Granulocyte % (Auto) 1, Neutrophils (%) (Auto) 51, Lymphocytes (%) (Auto) 32, Monocytes (%) (Auto) 12, Eosinophils (%) (Auto) 4, Basophils (%) (Auto) 0, Neutrophils # (Auto) 2.0, Lymphocytes # (Auto) 1.3, Monocytes # (Auto) 0.5, Eosinophils # (Auto) 0.2, Basophils # (Auto) 0.0, Immature Granulocyte # (Auto) 0.0, Percent Immature Platelet Fraction 2.0, Sodium Level 141, Potassium Level 4.0, Chloride Level 109, Carbon Dioxide Level 23, Anion Gap 9, Blood Urea Nitrogen 16, Creatinine 0.79, Estimat Glomerular Filtration Rate 74, BUN/Creatinine Ratio 20, Glucose Level 116, Calcium Level 8.6, Corrected Calcium 9.2, Total Bilirubin 0.4, Aspartate Amino Transf (AST/SGOT) 19, Alanine Aminotransferase (ALT/SGPT) 22, Alkaline Phosphatase 146, Total Protein 6.2, Albumin 3.3 04/10/22 11:17: Glucometer 113 04/10/22 15:43: Glucometer 142 Discharge Home Medications: Active Scripts Active Lipitor (Atorvastatin Calcium) 20 Mg Tablet 20 Mg PO DAILY Aspirin EC (Aspirin) 81 Mg Tablet.dr 81 Mg PO DAILY Reported Mirtazapine 7.5 Mg Tablet 7.5 Mg PO HS Xarelto Tablet (Rivaroxaban) 20 Mg Tablet 20 Mg PO HS Myrbetriq (Mirabegron) 50 Mg Tab.er.24h 50 Mg PO HS Miralax (Polyethylene Glycol 3350) 17 Gram Powd.pack 17 Gm PO DAILY PRN Tums Ultra (Calcium Carbonate) 400 Mg Calcium (1000 Mg) Tab.chew 1,000 Mg PO Q6H PRN Senna (Sennosides) 8.6 Mg Tablet 8.6 Mg PO BID PRN Docusate Sodium 100 Mg Capsule 100 Mg PO BID PRN Tramadol HCl 50 Mg Tablet 50 Mg PO TID PRN Gas-X (Simethicone) 125 Mg Capsule 125-250 Mg PO BID PRN Tylenol Extra Strength (Acetaminophen) 500 Mg Tablet 500-1,000 Mg PO Q6H PRN Denta 5000 Plus (Sodium Fluoride) 1.1 % Sodium Fluoride Cream..g. 1 Ea DT UD Vitamin C (Ascorbic Acid) 1,000 Mg Tablet 1,000 Mg PO DAILY Loratadine 10 Mg Tablet 10 Mg PO DAILY Docusate Sodium 100 Mg Capsule 100 Mg PO DAILY Venlafaxine HCl ER (Venlafaxine HCl) 37.5 Mg Tab.er.24 112.5 Mg PO DAILY TAKES 3 (37.5MG) TABS Dicyclomine HCl 10 Mg Capsule 10 Mg PO TIDAC Pantoprazole Sodium 40 Mg Tablet. 40 Mg PO BID Instructions to patient/family Please see electronic discharge instructions given to patient. DUNG KEYS DO Apr 10, 2022 12:33
--- NOTE | 2022-04-10 14:52 | Occupational Ther Daily Note ---
OT Current Status-Daily Note Subjective Patient setting off chair alarm to attempt to toilet herself. Mental Status/Objective Patient Orientation: Person, Confused ADL-Treatment Therapy Code Descriptions/Definitions Functional [place] Measure: 0=Not Assessed/NA 4=Minimal Assistance 1=Total Assistance 5=Supervision or Setup 2=Maximal Assistance 6=Modified [place] 3=Moderate Assistance 7=Complete IndependenceSCALE: Activities may be completed with or without assistive devices. 3-Vfsobpdddn-fhinegh completes the activity by him/herself with no assistance from a helper. 5-Set-up or Clean-up Assistance-helper sets up or cleans up; patient completes activity. [place] assists only prior to or following the activity. 4-Supervision or Touching Assistance-helper provides verbal cues and/or touching/steadying and/or contact guard assistance as patient completes activity. Assistance may be provided throughout the activity or intermittently. 3-Partial/Moderate Assistance-helper does LESS THAN HALF the effort. [place] lifts, holds or supports trunk or limbs, but provides less than half the effort. 2-Substantial/Maximal Assistance-helper does MORE THAN HALF the effort. [place] lifts or holds trunk or limbs and provides more than half the effort. 2-Ifpyhjxrd-qdtjuc does ALL the effort. Patient does none of the effort to complete the activity. Or, the assistance of 2 or more helpers is required for the patient to complete the activity. If activity was not attempted, code reason: 7-Patient Refused. 9-Not Applicable-not attempted and the patient did not perform the activity before the current illness, exacerbation or injury. 10-Not Attempted due to Environmental Limitations-(lack of equipment, weather restraints, etc.). 88-Not Attempted due to Medical Conditions or Safety Concerns. Eating (QC): 6 Upper Body Dressing (QC): 7 (no garments available) Lower Body Dressing (QC): 7 (no garments available) On/Off Footwear: 4 Toileting Hygiene (QC): 3 Toilet Transfer (QC): 3 (retropulsive posterior lean w/ LOB,recovery min assit from OT, impaired safety awareness and use of ADs) Education OT Patient Education: Modified ADL techniques, Reviewed precautions, Safety issues, Transfer techniques Teaching Recipient: Patient Teaching Methods: Demonstration, Discussion Response to Teaching: Reinforcement Needed OT Oracle Forms Developer Goals Oracle Forms Developer Goals Oral Hygiene (QC): 5 Toileting Hygiene (QC): 4 Shower/Bathe Self (QC): 4 Upper Body Dressing (QC): 5 Lower Body Dressing (QC): 4 On/Off Footwear (QC): 4 1=Demonstrate adherence to instructed precautions during ADL tasks. 2=Patient will verbalize/demonstrate understanding of assistive devices/modifications for ADL. 3=Patient will improve strength/tolerance for activity to enable patient to perform ADL's. OT Education/Plan Discharge Recommendations Plan/Recommendations: Continue POC Treatment Plan/Plan of Care Patient would benefit from OT for education, treatment and training to promote independence in ADL's, mobility, safety and/or upper extremity function for ADL's. Plan of Care: ADL Retraining, Cognitive Retraining, Concurrent Therapy, Functional Mobility, Group Exercise/Act as Ind, UE Funct Exercise/Act Treatment Duration: Apr 19, 2022 Frequency: 3 times per week (3-5 times per week) Estimated Hrs Per Day: .25 hour per day Agreement: Yes Rehab Potential: Fair Patient returned to chair w/ chair alarm set. All needs met Time Start Time: 09:30 Stop Time: 09:43 DATE: Apr 10, 2022 Total Time Billed (hr/min): 13 Billed Treatment Time 1 visit ADL 1 13 min YULISA RYAN OT Apr 10, 2022 14:52
== END 2022-04-10 13:39 ==
LOC: EDUNIT# 18:22 → ER 18:23 → UNDOADMOB 21:21 → 4TH 21:21 → UNDODISOB 04-10 13:39
PROVIDERS: ADMIT Internal Medicine; ATTEND Internal Medicine
DX: S09.90XA Unspecified injury of head, initial encounter (principal); R77.8 Other specified abnormalities of plasma proteins; I25.10 Atherosclerotic heart disease of native coronary artery without angina pectoris; M79.669 Pain in unspecified lower leg; I26.99 Other pulmonary embolism without acute cor pulmonale; G47.33 Obstructive sleep apnea (adult) (pediatric); H91.90 Unspecified hearing loss, unspecified ear; W18.39XA Other fall on same level, initial encounter; Z95.4 Presence of other heart-valve replacement; Z86.73 Personal history of transient ischemic attack (TIA), and cerebral infarction without residual deficits; Z79.01 Long term (current) use of anticoagulants; Z87.81 Personal history of (healed) traumatic fracture; Z96.21 Cochlear implant status
CPT/HCPCS: 70450; 71045; 72125; 72170; 80053 ×3; 80061; 82550; 82553; 82947 ×2; 83036; 83735; 83874; 83880; 84484; 85025 ×3; 85610; 85730; 93005; 93041; 94664; 94760; 97161; 97166; 97530; 97535; 99284; C8929; G0378; 36415; 93306

== ENCOUNTER 2022-04-10 12:50 | Inpatient (IN) | payer MEDICARE ==
[~2022-04-10] VITALS: Ht 162.5 cm; Wt 68.9 kg
[~2022-04-10 12:50] MED LIST changes: +ASCO100024 PO; +ATOR20TA49 PO; +CALC10009 PO; +DICY10CA12 PO; +LORA10TA7 PO; +MIRA50TA PO; +MIRT7.5T8 PO; +PANT40TA52 PO; +SENN-234 PO; +SIME125C PO; +SODI51CR8 DT; +SULF-221 PO; +VENL37.57 PO
[2022-04-10 14:00] VITALS: BP 168/84
[2022-04-10] MEDS ORDERED: MELATONIN 3 MG TABLET PO PRN (14:00)
[2022-04-10] MEDS ORDERED: guaiFENesin/CODEINE (ROBITUSSIN AC) 10ML UDC PO PRN (14:00)
[2022-04-10] MEDS ORDERED: ALPRAZolam 0.25 MG (XANAX) TAB PO PRN (14:00)
[2022-04-10] MEDS ORDERED: FLEET ENEMA ADULT 1 EA BTL PR PRN (14:00)
[2022-04-10] MEDS ORDERED: ONDANSETRON 4 MG (ZOFRAN) ORAL DISSOLVE TAB PO PRN (14:00)
[2022-04-10] MEDS ORDERED: DOCUSATE SODIUM 100 MG (COLACE) CAP PO PRN ×2 (14:00→14:30)
[2022-04-10] MEDS ORDERED: LACTULOSE SYRUP 10GM/15ML (ENULOSE) 30ML UDC PO PRN (14:00)
[2022-04-10] MEDS ORDERED: diphenhydrAMINE 25 MG TAB (BENADRYL) PO PRN (14:00)
[2022-04-10] MEDS ORDERED: ACETAMINOPHEN 325 MG TABLET PO PRN (14:00)
[2022-04-10] MEDS ORDERED: CALCIUM CARBONATE 500 MG (TUMS) TAB.CHEW PO PRN ×2 (14:00→15:00)
[2022-04-10] MEDS ORDERED: BISACODYL 10 MG SUPP (DULCOLAX) PR PRN (14:00)
[2022-04-10] MEDS ORDERED: LOPERAMIDE 2 MG (IMODIUM) TABLET PO PRN (14:00)
[2022-04-10] MEDS ORDERED: ACETAMINOPHEN 500 MG TAB (TYLENOL) PO PRN (14:30)
[2022-04-10] MEDS ORDERED: polyethylene glycoL POWDER 17 GM (MIRALAX) PACK PO PRN (14:30)
[2022-04-10] MEDS ORDERED: SENNOSIDES 8.6 MG (SENOKOT) TAB PO PRN (14:30)
[2022-04-10] MEDS ORDERED: SODIUM FLUORIDE TOP SCH (14:30)
--- NOTE | 2022-04-10 14:56 | Physical Therapy Evaluation ---
PT Evaluation-General Medical Diagnosis Admission Date Apr 10, 2022 at 13:50 Medical Diagnosis: Unwitnessed fall with minor head injury on anticoagulation Onset Date: Apr 09, 2022 Therapy Diagnosis Therapy Diagnosis: Gait deficit, Strength deficit Height/Weight Height (Feet): 5 Height (Inches): 3.00 Weight (Pounds): 174 Weight (Ounces): 12.8 Precautions Precautions/Isolations: Fall Prevention, Standard Precautions Weight Bear Status Right Lower Extremity: Right Full Weight Bearing Left Lower Extremity: Left Full Weight Bearing Referral Physician: Dr. Mcintosh Reason for Referral: Evaluation/Treatment Medical History Pertinent Medical History: Arthritis, CVA, Diverticulitis, GERD, HTN Reviewed History: Yes Social History Home: [facility] PT Steps Into Home: 0 Prior Prior Level of Function SCALE: Activities may be completed with or without assistive devices. 7-Fkudrotide-hiifqsm completes the activity by him/herself with no assistance from a helper. 5-Set-up or Clean-up Assistance-helper sets up or cleans up; patient completes activity. [place] assists only prior to or following the activity. 4-Supervision or Touching Assistance-helper provides verbal cues and/or touching/steadying and/or contact guard assistance as patient completes activi ty. Assistance may be provided throughout the activity or intermittently. 3-Partial/Moderate Assistance-helper does LESS THAN HALF the effort. [place] lifts, holds or supports trunk or limbs, but provides less than half the effort. 2-Substantial/Maximal Assistance-helper does MORE THAN HALF the effort. [place] lifts or holds trunk or limbs and provides more than half the effort. 6-Ptsmdfdzk-pvpfev does ALL the effort. Patient does none of the effort to complete the activity. Or, the assistance of 2 or more helpers is required for the patient to complete the activity. If activity was not attempted, code reason: 7-Patient Refused. 9-Not Applicable-not attempted and the patient did not perform the activity before the current illness, exacerbation or injury. 10-Not Attempted due to Environmental Limitations-(lack of equipment, weather restraints, etc.). 88-Not Attempted due to Medical Conditions or Safety Concerns. Bed Mobility: 6 Transfers (B,C,W/C): 6 Gait: 6 Indoor Mobility (Ambulation): Independent Stairs: Not Applicalbe Prior Devices Use: Walker PT Evaluation-Current Subjective Patient sitting in chair with OT present upon PT arrival, agreeable to treatment. Patient rates pain at 0/10 currently. Pain Section J - Health Conditions 1. Rarely or not at all 2. Occasionally 3. Frequently 4. Almost constantly 8. Unable to answer Pain Effect on Sleep: 1 Pain Interference with Therapy: 1 Pain Interference w/Day-to-Day: 1 Objective Patient Orientation: Person Attachments: Oxygen, IV ROM/Strength ROM Lower Extremities WFLs all planes bilaterally Strength Lower Extremities 4-/5 BLEs all planes. Sensory Vision: Functional Hearing: Impaired Sensation Right Lower Extremit: Intact Sensation Left Lower Extremity: Intact Transfers Roll Left & Right (QC): 4 Sit to Lying (QC): 4 Lying to Sitting/Side of Bed(Q: 4 Sit to Stand (QC): 4 Chair/Aqh-vi-Ikhoe Xfer(QC): 4 Toilet Transfer (QC): 4 Car Transfer (QC): 4 Gait Does the Patient Walk?: Yes Mode of Locomotion: Walk Anticipated Mode of Locomotion: Walk Walk 10 feet (QC): 5 Walk 50 ft with 2 Turns(QC): 4 Walk 150 ft (QC): 4 Walking 10ft/uneven surface-QC: 4 Distance: 160 feet Gait Assistive Device: FWW Wheelchair Training Does the Pt Use a Wheelchair?: No Wheel 50 ft with 2 turns (QC): 9 Wheel 150 ft (QC): 9 Stairs #of Steps: 0 1 Step (curb) (QC): 9 4 Steps (QC): 9 12 Steps (QC): 9 Balance Sitting Static: Normal Sitting Dynamic: Fair Standing Static: Fair Standing Dynamic: Fair Picking up an Object (QC): 4 Special Test Comments Patient used FWW and grabber to spanish moss picker object. Assessment/Needs Patient tolerated treatment fair. Patient performs all observed bed mobility and transfers with SBA. She ambulates 160 feet with FWW, with SBA and verbal cues for safety, to avoid objects and conservation of energy. 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 Rehab Potential: Fair PT Longterm Goals Machine Chocolate Molder Goals PT Longterm Goals Time Frame: May 10, 2022 Roll Left to Right (QC): 6 Sit to Lying (QC): 6 Lying-Sitting on Side/Bed(QC): 6 Sit to Stand (QC): 6 Chair/Fod-mw-Rchnr Xfer(QC): 6 Toilet/Commode Transfer (QC): 6 Car Transfer (QC): 6 Does the Patient Walk: Yes Walk 10 feet (QC): 6 Walk 10ft-Uneven Surface(QC): 6 Walk 50ft with 2 Turns (QC): 6 Walk 150 ft (QC): 6 Does the Pt use WC or Scooter?: No Wheel 50 feet with 2 turns (QC: 9 Wheel 150 feet: 9 1 Step (curb) (QC): 9 4 Steps (QC): 9 12 Steps (QC): 9 Picking up an Object (QC): 6 PT Plan Problem List Problem List: Activity Tolerance, Functional Strength, Safety, Balance, Gait, Transfer, Bed Mobility, ROM Treatment/Plan Treatment Plan: Continue Plan of Care Treatment Plan: Bed Mobility, Education, Functional Activity Priya, Functional Strength, Group Therapy, Gait, Safety, Therapeutic Exercise, Transfers Treatment Duration: May 16, 2022 Frequency: At least 5 of 7 days/Wk (IRF) Estimated Hrs Per Day: 1.5 hours per day Patient and/or Family Agrees t: Yes Safety Risks/Education Patient Education: Gait Training, Transfer Techniques Teaching Recipient: Patient Teaching Methods: Demonstration, Discussion Response to Teaching: Verbalize Understanding, Return Demonstration Time Time In: 1430 Time Out: 1440 DATE: Apr 10, 2022 Total Billed Treatment Time: 10 Total Billed Treatment Visit, ELIS stubbs ([id number]) MOOKIE GUARDADO PT Apr 10, 2022 14:56
--- NOTE | 2022-04-10 14:59 | ST Cognitive Linguistic Eval ---
Speech Evaluation-General Medical Diagnosis s/p Fall Onset Date: Apr 10, 2022 Therapy Diagnosis Therapy Diagnosis: Intact (Baseline) Cognitive Linguistic Skills Precautions Precautions: Fall Precautions/Isolations: Fall Prevention, Standard Precautions Referral Referring Physician: Dr. Mcintosh Reason for Referral: Evaluation/Treatment Medical History Pertinent Medical History: Arthritis, CVA, Diverticulitis, GERD, HTN Reviewed History: Yes Speech PLF-Current Status Prior Level of Function The patient denied recent or current challenges with her speech, language, cognition, or swallowing. The patient stated she does not believe her memory is "as good as it once was" but reported the decline has gradually occured through the aging process. Subjective The patient was seated upright in her recliner, awake and alert, upon entrance t o her room by the clinician. The patient greeted the clinician appropriately and was agreeable to participation in the cognitive linguistic assessment. 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 The patient reported the cochlear implant was lost during transportation to the hospital and she has a family member bringing her hearing aide to her in the near future. The patient does display an excellent ability at reading lips and verbal commu nication was supplemented with the use of a white board when needed. Language Eval: Auditory Comprehends Simple Yes/No Ques: Functional Indent/Objects Multiple [place]: Functional Follows 1-Step Commands: Functional Follows General Conversations: Functional Language Eval: Verbal Language Completes Spontaneous Greeting: Functional Produces Auto, Serial Info: Functional Word Finding: Functional Requests Basic Needs: Functional States Basic Personal Info: Functional Cognitive Patient Orientation The patient was oriented to location, city, month, day of the week, and year. Objective Cognitive Domain Attention: WNL Objective Oral Motor/Speech Production The patient does not display dysarthria or apraxia of speech at this time. The patient is 100% intelligible in known and unknown contexts. Impression The patient demonstrated baseline cognitive linguistic skills. The patient requires increased vocal intensity for comprehension due to hearing deficits present. Speech-Plan Treatment Plan Speech Therapy Treatment Plan: Discontinue ST Treatment Duration: Apr 10, 2022 Frequency: 1 time per week Estimated Hrs Per Day: .5 hour per day Rehab Potential: Fair Pt/Family Agrees to Plan: Yes Safety Risks/Education Teaching Recipient: Patient Teaching Methods: Discussion Response to Teaching: Verbalize Understanding Education Topics Provided: Results, Recommendations, Plan of Care Time Speech Therapy Time In: 13:50 Speech Therapy Time Out: 14:20 DATE: Apr 10, 2022 Total Billed Time: 30 Billed Treatment Time 1, ELI TAYLOR [facility] ST Apr 10, 2022 14:59
--- NOTE | 2022-04-10 15:37 | Occupational Therapy Eval ---
OT Evaluation-General/PLF Medical Diagnosis Admission Date Apr 10, 2022 at 13:50 Medical Diagnosis: Unwitnessed fall with minor head injury on anticoagulation Onset Date: Apr 09, 2022 Therapy Diagnosis Therapy Diagnosis: decreased ADL status Height/Weight Height (Feet): 5 Height (Inches): 3.00 Weight (Pounds): 174 Weight (Ounces): 12.8 Precautions Precautions/Isolations: Fall Prevention, Standard Precautions Weight Bear Status Weight Bearing Restriction: Weight Bearing/Tolerated Location Restriction: LE Bilateral Referral Physician: Dr. Mcintosh Referral Reason: Evaluation/Treatment Medical History Pertinent Medical History: Arthritis, CVA, Diverticulitis, GERD, HTN Additional Medical History bilateral PE, aortic stenosis, resting leg, CVA, mitral valve replacement, R hip replacement, frequent falls, R cochlear implant, L hip ORIF Current History ED 04/08/22 due to unwitnessed fall. Social History Home: [facility] Entry Into Home: Level Entry Steps Into Home: 0 ADL-Prior Level of Function SCALE: Activities may be completed with or without assistive devices. 2-Ycnvvwsnhf-msbjrhk completes the activity by him/herself with no assistance from a helper. 5-Set-up or Clean-up Assistance-helper sets up or cleans up; patient completes activity. [place] assists only prior to or following the activity. 4-Supervision or Touching Assistance-helper provides verbal cues and/or touching/steadying and/or contact guard assistance as patient completes activity. Assistance may be provided throughout the activity or intermittently. 3-Partial/Moderate Assistance-helper does LESS THAN HALF the effort. [place] lifts, holds or supports trunk or limbs, but provides less than half the effort. 2-Substantial/Maximal Assistance-helper does MORE THAN HALF the effort. [place] lifts or holds trunk or limbs and provides more than half the effort. 3-Hxxsipbxo-jepglr does ALL the effort. Patient does none of the effort to complete the activity. Or, the assistance of 2 or more helpers is required for the patient to complete the activity. If activity was not attempted, code reason: 7-Patient Refused. 9-Not Applicable-not attempted and the patient did not perform the activity before the current illness, exacerbation or injury. 10-Not Attempted due to Environmental Limitations-(lack of equipment, weather restraints, etc.). 88-Not Attempted due to Medical Conditions or Safety Concerns. ADL PLOF Comments Pt lives at [facility]. She reports being pretty independent with ADLs, but requires some assistance with mobility and ADLs. Pt reports requiring assistance to don socks. She doesn't feel safe going into/out of bathroom without assistance due to tile floors being slightly uneven and she is fearful of getting her foot caught and falling. Pt reports having assistance/supervision with showering, and assistance/supervision with toileting. Pt has a walk in shower with a small threshold that she has caught her foot on in the past, [place]. She uses a liquor department manager with LE dressing. Self Care: Needed Some Help Functional Cognition: Needed Some Help DME/Equipment Comments walker OT Current Status Subjective Pt very HOPI, doesn't have L hearing aide of R cochlear. Pt able to read lips or written text on white board. Pt requires increased time to understand therapist's questions/instructions. Mental Status/Objective Patient Orientation: Person, Place, Time Attachments: IV, Oxygen (2L NC) Current Glasses/Contacts: Yes Hearing Aids: Yes Hand Dominance: Right Upper Extremity ROM WFL, BUE shoulder flexion ~160 degrees Upper Extremity Coordination WFL Upper Extremity Sensation WFL Upper Extremity Strength grossly 3+/5 ADL-Treatment Eating (QC): 6 Oral Hygiene (QC): 4 (SBA) Shower/Bathe Self (QC): 3 (Min A with feet and buttocks.) Upper Body Dressing (QC): 5 Lower Body Dressing (QC): 4 (CGA) On/Off Footwear (QC): 3 (Mod A. Pt able to doff, assist to don. This is pt's PLOF.) Toileting Hygiene (QC): 3 (Min A with posterior hygiene.) Other Treatments OT evaluation complete, PT eval [id number] (not billed). OT/PT cotreat due to skill of 2 clinicians required that a cardiac rehabilitation program director could not perform in order to coordinate UE/LEs, decrease fall risk, and due to pt's limitations in strength, activity tolerance, mobility/transfers. OT focused on UE placement, cues for sequencing and safety and ADLs, PT focused on LE placement, gross overall movement, and mobility/transfers. Pt performed functional mobility/transfers using FWW, SBA bed mobility and CGA-SBA transfers, SBA 160' with FWW (VCs for safety, energy conservation, and to avoid objects). Pt performed dressing and ADLs in room, requiring frequent redirection to task due to being easily distracted. Pt indicates she is hungry, RN okays snack for pt. Pt able to open pudding and yumiko crackers without assistance and eat IND. Pt educated on ARU expectations and rehab process. Pt oriented to her room and call light. Post tx, pt up in recliner, call light in reach and all needs met. Chair alarm activated and telesitter present. Education OT Patient Education: Correct positioning, Energy conservation, Modified ADL techniques, Progress toward Goal/Update tx plan, Purpose of tx/functional activities, Rehab process Teaching Recipient: Patient Teaching Methods: Discussion Response to Teaching: Verbalize Understanding BIMS CAM BIMS Expression of Ideas and Wants: Without Difficulty Understanding Verbal Content: Usually Understands (HOPI, no hearing aides present at time of eval) IRF GABRIELA BIMS: IRF GABRIELA BIMS Response (Comments) Value Repitition of Three Words One 1 Recalls Socks Yes, No Cue Required 2 Recalls Blue No, Could Not Recall 0 Recalls Bed No, Could Not Recall 0 Year Correct 3 Month Accurate Within 5 Days 2 Day Correct 1 Total [address] Mental St[address] No CAM Mental Status Change/Baseline: 0 Inattention: 0 Disorganized thinkin Altered level of consciousness: 0 OT Short Term Goals Short Term Goals Time Frame: Apr 18, 2022 Upper body dressin Lower body dressin OT Large Engine Assembler Goals Large Engine Assembler Goals Time Frame: May 02, 2022 Eating (QC): 6 Oral Hygiene (QC): 6 Toileting Hygiene (QC): 6 Shower/Bathe Self (QC): 4 Upper Body Dressing (QC): 6 Lower Body Dressing (QC): 6 On/Off Footwear (QC): 4 Additional Goals: 1-Demonstrate ADL Tasks, 2-Verbalize Understanding, 3- ImproveStrength/Priya 1=Demonstrate adherence to instructed precautions during ADL tasks. 2=Patient will verbalize/demonstrate understanding of assistive devices/m odifications for ADL. 3=Patient will improve strength/tolerance for activity to enable patient to perform ADL's. OT Education/Plan Problem List/Assessment Assessment: Decreased Activ Tolerance, Decreased UE Strength, Impaired Funct Balance, Impaired I ADL's, Impaired Self-Care Skills Discharge Recommendations Plan/Recommendations: Continue POC Treatment Plan/Plan of Care Patient would benefit from OT for education, treatment and training to promote independence in ADL's, mobility, safety and/or upper extremity function for ADL's. Plan of Care: ADL Retraining, Functional Mobility, Group Exercise/Act as Ind, UE Funct Exercise/Act Treatment Duration: May 02, 2022 Frequency: At least 5 of 7 days/Wk (IRF) Estimated Hrs Per Day: 1.5 hours per day Agreement: Yes Rehab Potential: Fair Time Start Time: 14:20 Stop Time: 15:45 DATE: Apr 10, 2022 Total Time Billed (hr/min): 75 Billed Treatment Time OT eval 10' ([id number]), cotreat x65' ([id number]) 1, EVM (10'), ADL 2 (30'), FA 2 (35') CHELSEY FERNANDES OT Apr 10, 2022 15:37
--- NOTE | 2022-04-10 15:48 | Physical Therapy Daily Note ---
PT Daily Note-Current Subjective Pt. agrees to PT OT co Rx. Pt. denies pain. Great difficulty with communication as pt. does not have her cochlear implant aide here. Pt. c/o she is hungry, Nursing oks a snack Pain Location: No Pain Reported Section J - Health Conditions 1. Rarely or not at all 2. Occasionally 3. Frequently 4. Almost constantly 8. Unable to answer Pain Effect on Sleep: 1 Pain Interference with Therapy: 1 Pain Interference w/Day-to-Day: 1 Mental Status Patient Orientation: Normal For Age Attachments: Oxygen, IV Transfers SCALE: Activities may be completed with or without assistive devices. 8-Tworbethji-sxsaccc completes the activity by him/herself with no assistance from a helper. 5-Set-up or Clean-up Assistance-helper sets up or cleans up; patient completes activity. [place] assists only prior to or following the activity. 4-Supervision or Touching Assistance-helper provides verbal cues and/or touching/steadying and/or contact guard assistance as patient completes activity. Assistance may be provided throughout the activity or intermittently. 3-Partial/Moderate Assistance-helper does LESS THAN HALF the effort. [place] lifts, holds or supports trunk or limbs, but provides less than half the effort. 2-Substantial/Maximal Assistance-helper does MORE THAN HALF the effort. [place] lifts or holds trunk or limbs and provides more than half the effort. 7-Wpgpdtniq-ewxaii does ALL the effort. Patient does none of the effort to complete the activity. Or, the assistance of 2 or more helpers is required for the patient to complete the activity. If activity was not attempted, code reason: 7-Patient Refused. 9-Not Applicable-not attempted and the patient did not perform the activity before the current illness, exacerbation or injury. 10-Not Attempted due to Environmental Limitations-(lack of equipment, weather restraints, etc.). 88-Not Attempted due to Medical Conditions or Safety Concerns. Sit to Stand (QC): 4 Weight Bearing Right Lower Extremity: Right Full Weight Bearing Left Lower Extremity: Left Full Weight Bearing Gait Training Does the Patient Walk?: Yes Gait Assistive Device: FWW 15ft CGA no LOB, assist for IV and O2 Exercises Seated Therapy Exercises: Ankle pumps, Sit to stand, Long arc quads, Hip flexion, Hip abd/add Seated Reps: 15 Treatments co Rx with OT for balance training and safety instruction, donning pants while managing balance, fnct mob, LE ex, orientation to room and equipment ie, phone, bed control and call button as well as recliner. Pt. c/o fatigue and required rest breaks Assessment Current Status: Fair Progress PT Pier Hand Goals Pier Hand Goals PT Alf Goals Time Frame: May 10, 2022 Roll Left & Right (QC): 6 Sit to Lying (QC): 6 Lying-Sitting on Side/Bed(QC): 6 Sit to Stand (QC): 6 Chair/Drr-li-Wfqtu Xfer(QC): 6 Toilet Transfer (QC): 6 Car Transfer (QC): 6 Does the Patient Walk: Yes Walk 10 feet (QC): 6 Walk 50ft with 2 Turns (QC): 6 Walk 150 ft (QC): 6 Walking 10ft on Uneven Surface: 6 1 Step (curb) (QC): 9 4 Steps (QC): 9 12 Steps (QC): 9 Picking up an Object (QC): 6 Does the Pt use WC or Scooter?: No Wheel 50 feet with 2 turns (QC: 9 Wheel 150 feet: 9 PT Plan Treatment/Plan Treatment Plan: Continue Plan of Care Treatment Plan: Bed Mobility, Education, Functional Activity Priya, Functional Strength, Group Therapy, Gait, Safety, Therapeutic Exercise, Transfers Treatment Duration: May 16, 2022 Frequency: At least 5 of 7 days/Wk (IRF) Estimated Hrs Per Day: 1.5 hours per day Patient and/or Family Agrees t: Yes Safety Risks/Education Patient Education: Transfer Techniques, Correct Positioning, Safety Issues Teaching Recipient: Patient Response to Teaching: Reinforcement Needed Time Time In: 1440 Time Out: 1545 DATE: Apr 10, 2022 Total Billed Treatment Time: 65 Total Billed Treatment 1,GT11m,EX21m,FA33 VERONICA COSTA TEAM MEMBER Apr 10, 2022 15:48
[2022-04-10] MEDS: inSUlin ASPART (NovoLOG) 1 UNIT/0.01 ML (CHARGE PER UNIT) SC SCH ×2 (16:45→20:08)
[2022-04-10] MEDS: DICYCLOMINE 10 MG (BENTYL) CAP PO SCH (17:21)
[2022-04-10 19:15] VITALS: BP 145/82
[2022-04-10] MEDS: DOCUSATE SODIUM 100 MG (COLACE) CAP PO SCH (20:08)
[2022-04-10] MEDS: RIVAROXABAN 20 MG TABLET (XARELTO) PO SCH (20:08)
[2022-04-10] MEDS: MIRABEGRON 25 MG TAB (MYRBETRIQ) PO SCH (20:08)
[2022-04-10] MEDS: PANTOPRAZOLE 40 MG (PROTONIX) TAB PO SCH (20:08)
[2022-04-10] MEDS: polyethylene glycoL POWDER 17 GM (MIRALAX) PACK PO SCH (20:08)
[2022-04-10] MEDS: MIRTAZAPINE 15 MG (REMERON) TAB PO SCH (20:08)
[2022-04-10] MEDS: SENNA W/DOCUSATE (SENOKOT S) TABLET PO SCH (20:09)
--- NOTE | 2022-04-10 20:44 | PM&R Post Admission Assessment ---
PM&R HP Date of Visit: Apr 10, 2022 Time of Visit: 15:00 History of Present Illness CC: Concussion without LOC HPI: This is an 86yo[place] patient of mine for many years who has a h/o valve replacement with CVA complication and multiple falls at [facility] who presents to ARU following a concussion without LOC at [facility]. She has been falling backwards multiple times per week. She remains on Xarelto for h/o mass PE causing respiratory failure and ventilator management following respiratory arrest while standing in [facility] head revealed no evidence of subdural hematoma. Her confusion has worsened since the concussion but her baseline is of cognitive decline. Updated daughter and patient on plan for Rehab to prevent falls and prevent patient from being sent to fdc care. Past Talpznl-Aqjyep-Nmehpf Hx Past Med/Social Hx: Reviewed Nursing Past Med/Soc Hx, Reviewed and Corrections made Patient Social History Marrital Status: Employed/Student: retired Alcohol Use: Denies Use Smoking Status: Never a Smoker Recent Hopitalizations: No Immunizations Up To Date Pediatric: Yes Date of Pneumonia Vaccine: Feb 25, 2019 Date of Influenza Vaccine: Dec 11, 2021 Seasonal Allergies Seasonal Allergies: No Past Medical History Surgeries: Abdominal, Cardiac, Ear Surgery, Gallbladder, Joint Replacement, Orthopedic, Valve Replacement Currently Using CPAP: No Currently Using BIPAP: Yes Cardiac: Chronic Edema/Swelling, Peripheral Vascular, Valvular Heart Disease Neurological: Stroke 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: No Sexually Transmitted Disease: No HIV/AIDS: No Female 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 Disorders: Denies Menopausal Gastrointestinal: Abdominal Hernia, Gastroesophageal Reflux, Hiatal Hernia, Irritable Bowel Musculoskeletal: Arthritis, Chronic Back Pain HEENT: Cataract 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, Bilateral Hearing Aide Psychosocial: Sleep Difficulties History of Blood Disorders: No Adverse Reaction to Blood Sandhu: No Family History Diabetes mellitus 19 FATHER 19 MOTHER FH: heart disease 19 MOTHER FH: muscular dystrophy G8 BROTHER (Friedreich's Ataxia) Hypertension Myocardial infarction 19 MOTHER Diabetes PAST SURGICAL HISTORY: -RIGHT COCHLEAR IMPLANT -HERNIA REPAIR -CHOLECYSTECTOMY -EGD/COLONOSCOPY -LUMBAR EPIDURAL STEROID INJECTIONS -RIGHT HIP REPLACEMENT 02/05/2017 -LEFT HIP FX/ORIF 09/2020 -CARDIAC CATH 2012-NO SIGNFICANT CAD, NO INTERVENTION -CARDIAC CATH 12/27/2019--NO SIGNFICANT CAD. AORTIC STENOSIS/NEED FOR VALVE REPLACEMENT; NO INTERVENTION. EF 55-65%. DONE BY DR. ELLISON -AORTIC VALVE REPLACEMENT Prior Level of Function Bed Mobility: 6 Transfers: 6 Gait: 6 Indoor Mobility (Ambulation): Independent Stairs: Not Applicalbe Prior Devices Use: Walker Self Care: Needed Some Help Functional Cognition: Needed Some Help Occupation: retired Current Level of Fuctioning Roll Left to Right: 4 Sit to Lyin Lying to Sitting/Side of Bed: 4 Sit to Stand: 4 Chair/Yvk-bu-Vsluc Xfer: 4 Car Transfer: 4 Does the Patient Walk: Yes Mode of Locomotion: Walk Anticipated Mode of Locomotion: Walk Walk 10 feet: 5 Walk 50 ft with 2 Turns: 4 Walk 150 ft: 4 Walking 10ft on uneven surface: 4 Gait Assistive Device: FWW Does the Pt Use a Wheelchair: No Wheel 50 ft with 2 turns: 9 Wheel 150 ft: 9 #of Steps: 0 1 Step (curb): 9 4 Steps: 9 12 Steps: 9 Picking up an Object: 4 Eatin Oral Hygiene: 4 (SBA) Shower/Bathe Self: 3 (Min A with feet and buttocks.) Upper Body Dressin Lower Body Dressin (CGA) On/Off Footwear: 3 (Mod A. Pt able to doff, assist to don. This is pt's PLOF.) Toileting Hygiene: 3 (Min A with posterior hygiene.) PM&R Allergy/Meds/Data Review Allergies Coded Allergies: No Known Drug Allergies (Unverified , 02/04/17) Home Medications Scheduled Ascorbic Acid (Vitamin C), 1,000 MG PO DAILY, (Reported) Aspirin (Aspirin EC), 81 MG PO DAILY Atorvastatin Calcium (Lipitor), 20 MG PO DAILY Dicyclomine HCl (Dicyclomine HCl), 10 MG PO TIDAC, (Reported) Docusate Sodium (Docusate Sodium), 100 MG PO DAILY, (Reported) Loratadine (Loratadine), 10 MG PO DAILY, (Reported) Mirabegron (Myrbetriq), 50 MG PO HS, (Reported) Mirtazapine (Mirtazapine), 7.5 MG PO HS, (Reported) Pantoprazole Sodium (Pantoprazole Sodium), 40 MG PO BID, (Reported) Rivaroxaban (Xarelto Tablet), 20 MG PO HS, (Reported) Sodium Fluoride (Denta 5000 Plus), 1 EA DT UD, (Reported) Venlafaxine HCl (Venlafaxine HCl ER), 112.5 MG PO DAILY, (Reported) Scheduled PRN Acetaminophen (Tylenol Extra Strength), 500-1,000 MG PO Q6H PRN for PAIN-MILD ( 1-4), (Reported) Calcium Carbonate (Tums Ultra), 1,000 MG PO Q6H PRN for HEARTBURN, (Reported) Docusate Sodium (Docusate Sodium), 100 MG PO BID PRN for CONSTIPATION-1ST LINE, (Reported) Polyethylene Glycol 3350 (Miralax), 17 GM PO DAILY PRN for CONSTIPATION-2ND LINE, (Reported) Sennosides (Senna), 8.6 MG PO BID PRN for CONSTIPATION-5TH LINE, (Reported) Simethicone (Gas-X), 125-250 MG PO BID PRN for INDIGESTION, (Reported) Tramadol HCl (Tramadol HCl), 50 MG PO TID PRN for PAIN-MODERATE (5-7), (Reported) Discontinued Medications Acetaminophen (Tylenol Extra Strength), 500-1,000 MG PO Q6H PRN for PAIN-MILD (1-4), (Reported) Discontinued Reason: No Longer Taking Docusate Sodium (Dok), 100 MG PO BID Discontinued Reason: No Longer Taking Docusate Sodium (Colace), 100 MG PO DAILY Discontinued Reason: No Longer Taking Hydrocodone/Acetaminophen (Hydrocodone-Acetamin 5-325 mg), 1 TAB PO Q6H PRN for PAIN-MODERATE (5-7) Discontinued Reason: No Longer Taking Imipramine HCl (Imipramine HCl), 25 MG PO HS Discontinued Reason: No Longer Taking Lactulose (Lactulose), 10 GM PO BID PRN for CONSTIPATION-2ND LINE Discontinued Reason: No Longer Taking Melatonin (Melatonin), 3 MG PO HS, (Reported) Discontinued Reason: No Longer Taking Omeprazole (Omeprazole), 20 MG PO 0700,1600, (Reported) Discontinued Reason: No Longer Taking Polyethylene Glycol 3350 (Polyethylene Glycol 3350), 17 GM PO BID Discontinued Reason: No Longer Taking Polyethylene Glycol 3350 (Miralax), 17 GM PO DAILY PRN for CONSTIPATION-2ND LINE, (Reported) Discontinued Reason: Duplicate Order Rivaroxaban (Xarelto), 20 MG PO DAILY, (Reported) Discontinued Reason: No Longer Taking Sennosides/Docusate Sodium (Stool Softener-Laxative Tablet), 1 EA PO BID Discontinued Reason: No Longer Taking Simethicone (Gas Relief), 125-250 MG PO BID PRN for INDIGESTION, (Reported) Discontinued Reason: No Longer Taking Sulfamethoxazole/Trimethoprim (Bactrim Ds Tablet), 1 EACH PO BID, (Reported) Tramadol HCl (Tramadol HCl), 50 MG PO TID PRN for PAIN-MODERATE (5-7) Discontinued Reason: No Longer Taking Tramadol HCl (Ultram), 50 MG PO Q6H PRN for PAIN-MODERATE (5-7) Discontinued Reason: No Longer Taking Venlafaxine HCl (Venlafaxine HCl ER), 150 MG PO DAILY, (Reported) Discontinued Reason: No Longer Taking Current Medications Current Medications Reviewed Laboratory Data Laboratory Tests 04/10/22 20:05: Glucometer 124H Review of Systems Constitutional: see HPI, malaise, weakness EENTM: no symptoms reported Respiratory: no symptoms reported Cardiovascular: no symptoms reported Gastrointestinal: no symptoms reported Genitourinary: no symptoms reported Musculoskeletal: back pain, joint pain Skin: no symptoms reported Psychiatric/Neurological: Anxiety, Depressed, Pre-Existing Deficit, Weakness All Other Systems Reviewed Negative Unless Noted: Yes Physical Exam Physical Exam Vital Signs Vital Signs - First Documented 04/10/22 14:00 Temp 35.5 Pulse 65 Resp 20 B/P (MAP) 168/84 (112) Pulse Ox 91 O2 Delivery Nasal Cannula O2 Flow Rate 2.00 Capillary Refill : Height, Weight, BMI Height: 5'3.00" Weight: 174lbs. 12.8oz. 79.732278gr; 26.43 BMI Method:Stated General Appearance: No Apparent Distress, WD/WN, Chronically ill Eyes: Bilateral Eye Normal Inspection, Bilateral Eye PERRL HEENT: PERRL/EOMI, Normal ENT Inspection, Pharynx Normal, Other (very [place]) Neck: Full Range of Motion, Normal Inspection, Non Tender, Supple, Carotid Bruit Respiratory: Chest Non Tender, Lungs Clear, Normal Breath Sounds, No Accessory Muscle Use, No Respiratory Distress Cardiovascular: Regular Rate, Rhythm, No Edema, No Gallop, No JVD, No Murmur, Normal Peripheral Pulses Gastrointestinal: Normal Bowel Sounds, No Organomegaly, No Pulsatile Mass, Non Tender, Soft Back: Normal Inspection, No CVA Tenderness, No Vertebral Tenderness Extremity: Normal Capillary Refill, Normal Inspection, Normal Range of Motion, Non Tender, No Calf Tenderness, No Pedal Edema Neurologic/Psychiatric: Alert, No Motor/Sensory Deficits, heating equipment installer II-XII Norm as Tested, Abnormal Gait, Depressed Affect, Disoriented, Motor Weakness (generalized) Skin: Normal Color, Warm/Dry Lymphatic: No Adenopathy PM&R Medical Assessment & Plan REHAB/MEDICAL ASSESSMENT AND PLAN: REHAB IMPAIRMENT GROUP: Concussion without LOC ETIOLOGIC DIAGNOSIS: Concussion without LOC The comorbidities that impact the patients function and/or functional outcome by: multiple and frequent falls, severe [place], confusion, maintained on OAC REHAB PLAN: The patient is being admitted to our comprehensive inpatient rehabilitation facility and can tolerate the intensity of service consisting of at least: 180 minutes of therapy a day, 5 out of 7 days a week Rehab treatment will consist of: PT OT will focus on regaining function with use of AD and try to prevent falls and prevent moving to NH The patient/family has a good understanding of our discharge process and will benefit from an interdisciplinary inpatient rehabilitation program. The patient has potential to make improvement and is in need of at least two of the following multidisciplinary therapies including but not limited to physical, occupational, speech, and prosthetics and orthotics. Additionally the patient will need services from respiratory, nutritional services, wound care, psychology, etc. (Customize this to each patient). Given the patients complex condition and risk of further medical complications, rehabilitation services cannot be safely or effectively provided at a lower level of care such as a fdc facility. BARRIERS TO DISCHARGE: Falls on DOAC ESTIMATED LOS: 7 days DISPOSITION: AL RELEVANT CHANGES SINCE PREADMISSION SCREENING: I have compared the patients medical and functional status at the time of the preadmission screening and there are: no changes PROGNOSIS: Fair REHABILITATION GOALS: 1. PT OT will focus on regaining function with use of AD and try to prevent falls and prevent moving to NH All the above goals were reviewed with the patient and he/she is in agreement. By signing this document, I acknowledge that I have personally performed a full physical examination on this patient within 24 hours of admission to this inpatient rehabilitation facility and have determined the patient to be able to tolerate the above course of treatment at an intensive level for a reasonable period of time. I will be completing a detailed individualized Plan of Care for this patient by day #4 of the patients stay based upon the Preadmission Screen, the Post-Admission Evaluation, and the therapy evaluations. Admission Dx/Comorbidities: (1) Concussion without loss of consciousness ICD Codes: S06.0X0A - Concussion without loss of consciousness, initial encounter Assessment/Plan Assessment and Plan Assess & Plan/Chief Complaint Assessment: Concussion without LOC while on OAC for remote massive PE Type 2 [place] maintained on ASA and Statin h/o left hip fracture status post repair at [facility] h/o acute blood loss anemia requiring 2 units of blood at [facility] while inpatient for hip fracture 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 History of TV[place] 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 ABIGAIL on biPAP Cochlear implant GERD IBS RLS Plan: PT OT Fall prevention Monitor closely Home DUNG Will DO Apr 10, 2022 20:44
[2022-04-11 05:52] LABS: BASOPHILS % (AUTO) 1 % (0-10); EOSINOPHILS # (AUTO) 0.1 10^3/uL (0.0-0.3); EOSINOPHILS % (AUTO) 2 % (0-10); HEMATOCRIT 37 % (35-52); HEMOGLOBIN 11.5 g/dL (11.5-16.0); LYMPHOCYTES # (AUTO) 1.3 10^3/uL (1.0-4.0); LYMPHOCYTES % (AUTO) 34 % (12-44); MEAN CORPUSCULAR HEMOGLOBIN 29 pg (25-34); MEAN CORPUSCULAR HGB CONC 31 g/dL (32-36); MEAN CORPUSCULAR VOLUME 94 fL (80-99); MONOCYTES # (AUTO) 0.5 10^3/uL (0.0-1.0); MONOCYTES % (AUTO) 12 % (0-12); NEUTROPHILS # (AUTO) 1.9 10^3/uL (1.8-7.8); NEUTROPHILS % (AUTO) 50 % (42-75); PLATELET COUNT 139 10^3/uL (130-400); WHITE BLOOD COUNT 3.8 10^3/uL (4.3-11.0)
[2022-04-11] MEDS: DICYCLOMINE 10 MG (BENTYL) CAP PO SCH ×3 (05:57→17:00)
[2022-04-11] MEDS: VENlafaxine XR 37.5 MG (EFFEXOR XR) CAP PO SCH (05:57)
[2022-04-11 06:09] LABS: ALBUMIN 3.4 GM/DL (3.2-4.5); BILIRUBIN,TOTAL 0.4 MG/DL (0.1-1.0); CALCIUM 8.7 MG/DL (8.5-10.1); CREATININE SERUM 0.8 MG/DL (0.60-1.30); POTASSIUM 3.9 MMOL/L (3.6-5.0); TOTAL PROTEIN 6.4 GM/DL (6.4-8.2)
[2022-04-11] MEDS: inSUlin ASPART (NovoLOG) 1 UNIT/0.01 ML (CHARGE PER UNIT) SC SCH ×4 (06:26→20:08)
--- NOTE | 2022-04-11 07:06 | Individualized Plan of Care ---
Individualized Plan of Care Rehab Nursing IPOC Order Admission Date Apr 10, 2022 at 13:50 Current Orders Orders Admission Order(Inpt,Obs,Sdc) (04/10/22 13:50) Vital Signs: Per Unit Policy ( 08,16,00 (04/10/22 13:50) Nirmal Boles ,21 (04/10/22 13:50) Sequential Compression Device (04/10/22 13:50) Superintendent Division-Inpt Rehab Con (04/10/22 13:50) Rehab Nursing Orders-Ipoc (04/10/22 13:50) Physical Therapy Rehab Orders (04/10/22 13:50) Occupational Therapy Rehab Ord (04/10/22 13:50) Speech Therapy Rehab Orders (04/10/22 13:50) Cbc With Automated Diff (04/11/22 06:00) Comprehensive Metabolic Panel (04/11/22 06:00) Precautions (Aru) (04/10/22 13:50) Weekly Weight WEEK (04/10/22 13:50) Rehab-Intensity Of Therapy (04/10/22 13:50) Initiate Admission Nursing Pro .admission (04/10/22 13:50) Alprazolam Tablet (Xanax Tablet) (04/10/22 14:00) Calcium Carbonate Chew Tablet (Antacid C (04/10/22 14:00) Diphenhydramine Tablet (Benadryl Tablet) (04/10/22 14:00) Docusate Sodium Capsule (Colace Capsule) (04/10/22 21:00) Docusate Sodium Capsule (Colace Capsule) (04/10/22 14:00) Bisacodyl Suppository (Dulcolax Supposit (04/10/22 14:00) Lactulose Oral Solution (Enulose Oral So (04/10/22 14:00) Na Phos/Na Biphos Enema (Fleet Enema Giovanni (04/10/22 14:00) Guaifenesin/Codeine Syrup (Robitussin Ac (04/10/22 14:00) Loperamide Tablet (Imodium Tablet) (04/10/22 14:00) Melatonin Tablet (Melatonin Tablet) (04/10/22 14:00) Polyethylene Glycol Powder Pkt (Miralax (04/10/22 21:00) Ondansetron Oral Dissolve Tab (Zofran (04/10/22 14:00) Senna S Tablet (Senokot S Tablet) (04/10/22 21:00) Acetaminophen Tablet/Caplet (Tylenol T (04/10/22 14:00) Code/Resuscitation (04/10/22 13:51) Ambulate 08,12,20 (04/10/22 13:51) Sequential Compression Device ONCE (04/10/22 13:51) Initiate Admission Nursing Pro .admission (04/10/22 13:51) Isolation Central Supply Req (04/10/22 13:51) Admission Arrival Bed Request (04/10/22 13:53) Telesitter Service Order & Ass Q4HR (04/10/22 14:18) Acetaminophen Tablet (Tylenol Tablet) (04/10/22 14:30) Aspirin Enteric Coated Tablet (Ecotrin T (04/11/22 09:00) Atorvastatin Tablet (Lipitor Tablet) (04/11/22 09:00) Dicyclomine Capsule (Bentyl Capsule) (04/10/22 17:00) Docusate Sodium Capsule (Colace Capsule) (04/10/22 14:30) Docusate Sodium Capsule (Colace Capsule) (04/11/22 09:00) Loratadine Tablet (Claritin Tablet) (04/11/22 09:00) Pantoprazole Tablet (Protonix Tablet) (04/10/22 21:00) Polyethylene Glycol Powder Pkt (Miralax (04/10/22 14:30) Rivaroxaban Tablet (Xarelto Tablet) (04/10/22 21:00) Sennosides Tablet (Senokot Tablet) (04/10/22 14:30) Tramadol Tablet (Ultram Tablet) (04/10/22 14:30) Ascorbic Acid Tablet (Vitamin C Tablet) (04/11/22 09:00) Calcium Carbonate Chew Tablet (Antacid C (04/10/22 15:00) Mirabegron Tab (Myrbetriq Tablet) (04/10/22 21:00) Mirtazapine Tablet (Remeron Tablet) (04/10/22 21:00) (Nf) Simethicone (Gas-X) (04/10/22 14:30) (Nf) Sodium Fluoride (Denta 5000 Plus) (04/10/22 14:30) Venlafaxine Xr Capsule (Effexor Xr Capsu (04/11/22 07:00) Patient Visit (04/10/22 ) Speech Sound Lang Comp (04/10/22 ) Treat. Speech/Lang/Voice (04/10/22 ) Patient Visit (04/10/22 ) Pt Eval Moderate Complexity (04/10/22 ) Accucheck Achs ACHS (04/10/22 15:23) Insulin Aspart (Novolog) (Novolog (Charg (04/10/22 16:00) Rt Request For Service (04/10/22 15:27) General/Regular (04/10/22 Dinner) Patient Visit (04/10/22 ) Functional Activities, Ea 15 (04/10/22 ) Exercise Therap, Ea 15 Min (04/10/22 ) Patient Visit (04/11/22 ) Functional Activities, Ea 15 (04/11/22 ) Exercise Therap, Ea 15 Min (04/11/22 ) Gait Training, Ea 15 Min (04/11/22 ) Rehab Nursing Orders: Ongoing Assess. of Cognitive Status, Ongoing Assess. of Function Status, Bladder Management, Bladder Scan, Bladder Training, Bowel Management, Bowel Training, Disease Management & Educaiton, DVT Prophylaxis, Fall Prevention, Fluid/Electrolyte/Nutrition Mgmt, Infection Prevention, Medication Management & Education, Management of Risks & Complications, M anagement of Skin Intergrity, Nutrition Management, Pain Management, Patient/Family Support Intensity of Therapy to be met Patient to be seen: Min.3h per day/5 of 7d PT IPOC Problem List: Activity Tolerance, Functional Strength, Safety, Balance, Gait, Transfer, Bed Mobility, ROM Treatment Plan: Continue Plan of Care Bed Mobility, Education, Functional Activity Priya, Functional Strength, Group Therapy, Gait, Safety, Therapeutic Exercise, Transfers Treatment Duration: May 16, 2022 Frequency: At least 5 of 7 days/Wk (IRF) Estimated Hrs Per Day: 1.5 hours per day OT IPOC Problems: Decreased Activ Tolerance, Decreased UE Strength, Impaired Funct Balance, Impaired I ADL's, Impaired Self-Care Skills OT Treatment, Training and Edu: Yes Plan of Care: ADL Retraining, Functional Mobility, Group Exercise/Act as Ind, UE Funct Exercise/Act Treatment Duration: May 02, 2022 Frequency: At least 5 of 7 days/Wk (IRF) Estimated Hrs Per Day: 1.[address] IPOC Speech Therapy Treatment Plan: Discontinue ST Treatment Duration: Apr 10, 2022 Frequency: 1 time per week Estimated Hrs Per Day: .5 hour per day Superintendent Division/Case Mgmt Superintendent Division/Case Managemen: Discharge Planning Dietitian/Jboss Architect Dietitian/Jboss Architect to monitor nutritional status and make changes and/or recommendations as needed and work with speech pathology on dietary upgrades as the occur. Physician IPOC Medical Issues being managed closely and that require the 24 hour availability of a physician: Recent concussion without LOC with recurrent falls will require close monitoring for any decompensation and monitoring confusion. Brief Synthesis of Preadmission Screen, Post-Admission Evaluation, and Therapy Evaluations: Medical Prognosis: Fair Anticipated Length of Stay: 7 days DUNG KEYS DO Apr 11, 2022 07:06
--- NOTE | 2022-04-11 07:06 | PM&R Progress Note ---
Subjective HPI/CC On Admission Date Seen by Provider: Apr 11, 2022 Time Seen by Provider: 12:00 Subjective/Events-last exam 04/11/2022: Patient doing well No pain reported Hearing aides to be brought in No falls Subtle confusion Review of Systems General: Fatigue, Malaise Objective Exam Vital Signs Vital Signs Date Time Temp Pulse Resp B/P (MAP) Pulse Ox O2 Delivery O2 Flow Rate FiO2 04/11/22 09:00 97 Nasal Cannula 2.00 04/11/22 08:00 35.7 74 14 163/82 (109) Capillary Refill : General Appearance: No Apparent Distress, WD/WN, Chronically ill HEENT: PERRL/EOMI, Normal ENT Inspection, Pharynx Normal, Other (very [place]) Neck: Full Range of Motion, Normal Inspection, Non Tender, Supple, Carotid Bruit Respiratory: Chest Non Tender, Lungs Clear, Normal Breath Sounds, No Accessory Muscle Use, No Respiratory Distress Cardiovascular: Regular Rate, Rhythm, No Edema, No Gallop, No JVD, No Murmur, Normal Peripheral Pulses Gastrointestinal: Normal Bowel Sounds, No Organomegaly, No Pulsatile Mass, Non Tender, Soft Back: Normal Inspection, No CVA Tenderness, No Vertebral Tenderness Extremity: Normal Capillary Refill, Normal Inspection, Normal Range of Motion, Non Tender, No Calf Tenderness, No Pedal Edema Neurologic/Psychiatric: Alert, No Motor/Sensory Deficits, blood donor recruiter II-XII Norm as Tested, Abnormal Gait, Depressed Affect, Disoriented, Motor Weakness (generalized) Skin: Normal Color, Warm/Dry Lymphatic: No Adenopathy Results/Procedures Lab Laboratory Tests 04/11/22 05:40 Patient resulted labs reviewed. FIM Transfers Therapy Code Descriptions/Definitions Functional [place] Measure: 0=Not Assessed/NA 4=Minimal Assistance 1=Total Assistance 5=Supervision or Setup 2=Maximal Assistance 6=Modified [place] 3=Moderate Assistance 7=Complete IndependenceSCALE: Activities may be completed with or without assistive devices. 3-Ehniqvhiha-gqrrboe completes the activity by him/herself with no assistance from a helper. 5-Set-up or Clean-up Assistance-helper sets up or cleans up; patient completes activity. [place] assists only prior to or following the activity. 4-Supervision or Touching Assistance-helper provides verbal cues and/or touching/steadying and/or contact guard assistance as patient completes activity. Assistance may be provided throughout the activity or intermittently. 3-Partial/Moderate Assistance-helper does LESS THAN HALF the effort. [place] lifts, holds or supports trunk or limbs, but provides less than half the effort. 2-Substantial/Maximal Assistance-helper does MORE THAN HALF the effort. [place] lifts or holds trunk or limbs and provides more than half the effort. 8-Wpqudfjje-fmzmxy does ALL the effort. Patient does none of the effort to co mplete the activity. Or, the assistance of 2 or more helpers is required for the patient to complete the activity. If activity was not attempted, code reason: 7-Patient Refused. 9-Not Applicable-not attempted and the patient did not perform the activity before the current illness, exacerbation or injury. 10-Not Attempted due to Environmental Limitations-(lack of equipment, weather restraints, etc.). 88-Not Attempted due to Medical Conditions or Safety Concerns. Roll Left to Right (QC): 4 Sit to Lying (QC): 4 Sit to Stand (QC): 4 Chair/Ecv-or-Dhnwq Xfer(QC): 4 Car Transfer (QC): 4 Gait Training Does the Patient Walk?: Yes Walk 10 feet (QC): 5 Walk 50 ft with 2 Turns(QC): 4 Walk 150 ft (QC): 4 Walking 10ft/uneven surface-QC: 4 Gait Assistive Device: FWW Wheelchair Training Does the Pt Use a Wheelchair?: No Wheel 50 ft with 2 turns (QC): 9 Wheel 150 ft (QC): 9 Stair Training #of Steps: 0 1 Step (curb) (QC): 9 4 Steps (QC): 9 12 Steps (QC): 9 Balance Picking up an Object (QC): 4 ADL-Treatment Eating (QC): 6 Oral Hygiene (QC): 4 (SBA) Shower/Bathe Self (QC): 3 (Min A with feet and buttocks.) Upper Body Dressing (QC): 5 Lower Body Dressing (QC): 4 (CGA) On/Off Footwear (QC): 3 (Mod A. Pt able to doff, assist to don. 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
[2022-04-11 08:00] VITALS: BP 163/82
[2022-04-11] MEDS: ASCORBIC ACID (VIT C) 500 MG TABLET PO SCH (08:01)
[2022-04-11] MEDS: PANTOPRAZOLE 40 MG (PROTONIX) TAB PO SCH ×2 (08:01→20:20)
[2022-04-11] MEDS: SENNA W/DOCUSATE (SENOKOT S) TABLET PO SCH ×2 (08:01→20:20)
[2022-04-11] MEDS: LORATADINE (CLARITIN) 10 MG TAB PO SCH (08:01)
[2022-04-11] MEDS: ASPIRIN E.C. 81 MG (ECOTRIN) TAB PO SCH (08:01)
--- NOTE | 2022-04-11 08:25 | Physical Therapy Daily Note ---
PT Daily Note-Current Subjective Pt. agreeable to Rx, but has such a difficult time hearing as well as some cogn issues, communication is an issue. No pain c/o but states she knows she is" not thinking straight" Pain Location: No Pain Reported Section J - Health Conditions 1. Rarely or not at all 2. Occasionally 3. Frequently 4. Almost constantly 8. Unable to answer Pain Effect on Sleep: 1 Pain Interference with Therapy: 1 Pain Interference w/Day-to-Day: 1 Mental Status Patient Orientation: Confused Attachments: Oxygen (2L) Transfers SCALE: Activities may be completed with or without assistive devices. 8-Qrnqggpedr-rnslihv completes the activity by him/herself with no assistance from a helper. 5-Set-up or Clean-up Assistance-helper sets up or cleans up; patient completes activity. [place] assists only prior to or following the activity. 4-Supervision or Touching Assistance-helper provides verbal cues and/or touching/steadying and/or contact guard assistance as patient completes activity. Assistance may be provided throughout the activity or intermittently. 3-Partial/Moderate Assistance-helper does LESS THAN HALF the effort. [place] lifts, holds or supports trunk or limbs, but provides less than half the effort. 2-Substantial/Maximal Assistance-helper does MORE THAN HALF the effort. [place] lifts or holds trunk or limbs and provides more than half the effort. 2-Wediosjsk-udjdme does ALL the effort. Patient does none of the effort to complete the activity. Or, the assistance of 2 or more helpers is required for the patient to complete the activity. If activity was not attempted, code reason: 7-Patient Refused. 9-Not Applicable-not attempted and the patient did not perform the activity before the current illness, exacerbation or injury. 10-Not Attempted due to Environmental Limitations-(lack of equipment, weather restraints, etc.). 88-Not Attempted due to Medical Conditions or Safety Concerns. Sit to Stand (QC): 4 Toilet Transfer (QC): 4 Weight Bearing Right Lower Extremity: Right Full Weight Bearing Left Lower Extremity: Left Full Weight Bearing Gait Training Does the Patient Walk?: Yes Walk 50 ft with 2 Turns(QC): 3 Gait Persons Needed: 1 Gait Assistive Device: FWW Pt. needs step by step guidance to destination, she states she hears what is being directed but she just cant compute it, pt. needs redirected to goal severa times in just a few feet. as in to chair and toilet even when already in bthrm. small cautious steps, requires assist for O2 as well Exercises Seated Therapy Exercises: Ankle pumps, Sit to stand, Long arc quads, Hip flexion, Hip abd/add Seated Reps: 12 Treatments assist to manage brkfst min, seated ex, sit to stands require mod to min , toileting max to mod asst clothing up down, pt. very confused about the objective of toileting and changing obviously soiled brief etc, gait 50 ftx1 slow, min assist balance and much assist to guide almost every step, up in r ecliner after Rx, flores at hand O2 insitu, sats 95% Assessment Current Status: Fair Progress confused, difficulty with communic 2//2 hearing loss, dependent for safety PT Custodial Goals Channeling Machine Operator Goals PT Custodial Goals Time Frame: May 10, 2022 Roll Left & Right (QC): 6 Sit to Lying (QC): 6 Lying-Sitting on Side/Bed(QC): 6 Sit to Stand (QC): 6 Chair/Wtv-cy-Ewijp Xfer(QC): 6 Toilet Transfer (QC): 6 Car Transfer (QC): 6 Does the Patient Walk: Yes Walk 10 feet (QC): 6 Walk 50ft with 2 Turns (QC): 6 Walk 150 ft (QC): 6 Walking 10ft on Uneven Surface: 6 1 Step (curb) (QC): 9 4 Steps (QC): 9 12 Steps (QC): 9 Picking up an Object (QC): 6 Does the Pt use WC or Scooter?: No Wheel 50 feet with 2 turns (QC: 9 Wheel 150 feet: 9 PT Plan Treatment/Plan Treatment Plan: Continue Plan of Care Treatment Plan: Bed Mobility, Education, Functional Activity Priya, Functional Strength, Group Therapy, Gait, Safety, Therapeutic Exercise, Transfers Treatment Duration: May 16, 2022 Frequency: At least 5 of 7 days/Wk (IRF) Estimated Hrs Per Day: 1.5 hours per day Patient and/or Family Agrees t: Yes Safety Risks/Education Patient Education: Gait Training, Transfer Techniques, Reviewed Precautions, Correct Positioning, Disease Process, Safety Issues Teaching Recipient: Patient Teaching Methods: Demonstration, Discussion Response to Teaching: Verbalize Understanding, Return Demonstration, Reinforcement Needed Time Time In: 730 Time Out: 830 DATE: Apr 11, 2022 Total Billed Treatment Time: 60 Total Billed Treatment 1,FA33m,EX15m,GT12m VERONICA COSTA PTA Apr 11, 2022 08:25
--- NOTE | 2022-04-11 10:42 | Occupational Ther Daily Note ---
OT Current Status-Daily Note Subjective Pt in recliner, agreeable to OT tx. Pt very [place], no SHIPMAN/cochlear present during tx so communication was very difficult with pt. Mental Status/Objective Patient Orientation: Person, Place, Time ADL-Treatment Therapy Code Descriptions/Definitions Functional [place] Measure: 0=Not Assessed/NA 4=Minimal Assistance 1=Total Assistance 5=Supervision or Setup 2=Maximal Assistance 6=Modified [place] 3=Moderate Assistance 7=Complete IndependenceSCALE: Activities may be completed with or without assistive devices. 0-Rrggqoeigt-codbkhz completes the activity by him/herself with no assistance from a helper. 5-Set-up or Clean-up Assistance-helper sets up or cleans up; patient completes activity. [place] assists only prior to or following the activity. 4-Supervision or Touching Assistance-helper provides verbal cues and/or touching/steadying and/or contact guard assistance as patient completes activity. Assistance may be provided throughout the activity or intermittently. 3-Partial/Moderate Assistance-helper does LESS THAN HALF the effort. [place] lifts, holds or supports trunk or limbs, but provides less than half the effort. 2-Substantial/Maximal Assistance-helper does MORE THAN HALF the effort. [place] lifts or holds trunk or limbs and provides more than half the effort. 8-Jbslgwcau-nwvofn does ALL the effort. Patient does none of the effort to complete the activity. Or, the assistance of 2 or more helpers is required for the patient to complete the activity. If activity was not attempted, code reason: 7-Patient Refused. 9-Not Applicable-not attempted and the patient did not perform the activity before the current illness, exacerbation or injury. 10-Not Attempted due to Environmental Limitations-(lack of equipment, weather restraints, etc.). 88-Not Attempted due to Medical Conditions or Safety Concerns. Shower/Bathe Self (QC): 4 (SBA, pt able to wash/dry all parts with VCs for sequencing and redirection to task.) Upper Body Dressing (QC): 5 Lower Body Dressing (QC): 3 (Mod A overall.) On/Off Footwear: 3 (Mod A overall.) Toileting Hygiene (QC): 3 (Mod A overall. Assist with pant hike and posterior hygiene for thoroughness) Toilet Transfer (QC): 4 (CGA using GBs.) Other Treatment Pt in recliner, stood from recliner with min A, 1 LOB backwards requiring assistance to correct. Pt then used FWW to transfer onto NC, CGA with VCs and gestures for direction. Pt doffed clothes and completed showering, requiring VCs and tactile cues for sequencing and redirection to task. Pt requests to use toilet, CGA to transfer onto toilet. Pt completed toileting and then dressing. Pt used FWW to return to recliner, [facility]. Post tx, pt in recliner, call light in reach and all needs met. chair alarm activated and telesitter present. Education OT Patient Education: Correct positioning, Energy conservation, Modified ADL techniques, Progress toward Goal/Update tx plan, Purpose of tx/functional activities, Rehab process Teaching Recipient: Patient Teaching Methods: Discussion Response to Teaching: Verbalize Understanding OT Short Term Goals Short Term Goals Time Frame: Apr 18, 2022 Upper body dressin Lower body dressin OT [facility] Goals Consulting Practice Manager Goals Time Frame: May 02, 2022 Acute change in mental status: 0 Inattention: 0 Disorganized thinkin Altered level of consciousness: 0 Eating (QC): 6 Oral Hygiene (QC): 6 Toileting Hygiene (QC): 6 Shower/Bathe Self (QC): 4 Upper Body Dressing (QC): 6 Lower Body Dressing (QC): 6 On/Off Footwear (QC): 4 Additional Goals: 1-Demonstrate ADL Tasks, 2-Verbalize Understanding, 3- ImproveStrength/Priya 1=Demonstrate adherence to instructed precautions during ADL tasks. 2=Patient will verbalize/demonstrate understanding of assistive devices/m odifications for ADL. 3=Patient will improve strength/tolerance for activity to enable patient to perform ADL's. OT Education/Plan Problem List/Assessment Assessment: Decreased Activ Tolerance, Decreased UE Strength, Impaired Funct Balance, Impaired I ADL's, Impaired Self-Care Skills Discharge Recommendations Plan/Recommendations: Continue POC Treatment Plan/Plan of Care Patient would benefit from OT for education, treatment and training to promote independence in ADL's, mobility, safety and/or upper extremity function for ADL's. Plan of Care: ADL Retraining, Functional Mobility, Group Exercise/Act as Ind, UE Funct Exercise/Act Treatment Duration: May 02, 2022 Frequency: At least 5 of 7 days/Wk (IRF) Estimated Hrs Per Day: 1.5 hours per day Agreement: Yes Rehab Potential: Fair Time Start Time: 09:15 Stop Time: 10:45 DATE: Apr 11, 2022 Total Time Billed (hr/min): 90 Billed Treatment Time 1, ADL 6 CHELSEY FERNANDES OT Apr 11, 2022 10:42
[2022-04-11] MEDS: DOCUSATE SODIUM 100 MG (COLACE) CAP PO SCH ×3 (11:29→20:20)
--- NOTE | 2022-04-11 12:00 | Physical Therapy Daily Note ---
PT Daily Note-Current Subjective Pt. up in recliner, agrees to Rx but is worried about her lunch being ordered. Pt with great hearing difficulties and no aide available struggles with communication. Much time is spent in dry erase writing time or repeating communication in differing tones attempting to teach or instruct pt. Pt. has no c/o pain Pain Location: No Pain Reported Section J - Health Conditions 1. Rarely or not at all 2. Occasionally 3. Frequently 4. Almost constantly 8. Unable to answer Pain Effect on Sleep: 1 Pain Interference with Therapy: 1 Pain Interference w/Day-to-Day: 1 Mental Status Patient Orientation: Confused Attachments: Oxygen (2L) Transfers SCALE: Activities may be completed with or without assistive devices. 8-Zpxtjgclxq-hwauajo completes the activity by him/herself with no assistance from a helper. 5-Set-up or Clean-up Assistance-helper sets up or cleans up; patient completes activity. [place] assists only prior to or following the activity. 4-Supervision or Touching Assistance-helper provides verbal cues and/or touching/steadying and/or contact guard assistance as patient completes activity. Assistance may be provided throughout the activity or intermittently. 3-Partial/Moderate Assistance-helper does LESS THAN HALF the effort. [place] lift s, holds or supports trunk or limbs, but provides less than half the effort. 2-Substantial/Maximal Assistance-helper does MORE THAN HALF the effort. [place] lifts or holds trunk or limbs and provides more than half the effort. 1-Ldrpibzvj-gswkjx does ALL the effort. Patient does none of the effort to complete the activity. Or, the assistance of 2 or more helpers is required for the patient to complete the activity. If activity was not attempted, code reason: 7-Patient Refused. 9-Not Applicable-not attempted and the patient did not perform the activity before the current illness, exacerbation or injury. 10-Not Attempted due to Environmental Limitations-(lack of equipment, weather restraints, etc.). 88-Not Attempted due to Medical Conditions or Safety Concerns. Sit to Stand (QC): 6 Weight Bearing Right Lower Extremity: Right Full Weight Bearing Left Lower Extremity: Left Full Weight Bearing Gait Training Does the Patient Walk?: Yes Walk 50 ft with 2 Turns(QC): 3 Gait Persons Needed: 1 Gait Assistive Device: FWW pt. requires assist for O2 as well as instruction for turns and safe position in FWW, pt tends to position herself outside of device and needs constant redirection for desired destination and to stay in safe position, however her balance has improved today Exercises Seated Therapy Exercises: Ankle pumps, Sit to stand, Long arc quads, Hip flexion, Hip abd/add Seated Reps: 10 Treatments TRFs, gait, therex, in chair with O2 and alarm insitu Assessment Current Status: Good Progress hearing loss greatly limits instruction and function, balance improved PT Utility Service Worker Goals Utility Service Worker Goals PT Detention Goals Time Frame: May 10, 2022 Roll Left & Right (QC): 6 Sit to Lying (QC): 6 Lying-Sitting on Side/Bed(QC): 6 Sit to Stand (QC): 6 Chair/Eew-wi-Rnqqq Xfer(QC): 6 Toilet Transfer (QC): 6 Car Transfer (QC): 6 Does the Patient Walk: Yes Walk 10 feet (QC): 6 Walk 50ft with 2 Turns (QC): 6 Walk 150 ft (QC): 6 Walking 10ft on Uneven Surface: 6 1 Step (curb) (QC): 9 4 Steps (QC): 9 12 Steps (QC): 9 Picking up an Object (QC): 6 Does the Pt use WC or Scooter?: No Wheel 50 feet with 2 turns (QC: 9 Wheel 150 feet: 9 PT Plan Treatment/Plan Treatment Plan: Continue Plan of Care Treatment Plan: Bed Mobility, Education, Functional Activity Priya, Functional Strength, Group Therapy, Gait, Safety, Therapeutic Exercise, Transfers Treatment Duration: May 16, 2022 Frequency: At least 5 of 7 days/Wk (IRF) Estimated Hrs Per Day: 1.5 hours per day Patient and/or Family Agrees t: Yes Safety Risks/Education Patient Education: Gait Training, Transfer Techniques, Correct Positioning, Disease Process, Safety Issues Teaching Recipient: Health Care Proxy Teaching Methods: Demonstration, Discussion Response to Teaching: Verbalize Understanding, Return Demonstration, Reinforcement Needed Time Time In: 1130 Time Out: 1200 DATE: Apr 11, 2022 Total Billed Treatment Time: 30 Total Billed Treatment 1,GT20m,FA10m VERONICA COSTA DEPUTY CHIEF SHERIFF Apr 11, 2022 12:00
[2022-04-11] MEDS: polyethylene glycoL POWDER 17 GM (MIRALAX) PACK PO SCH ×2 (12:21→20:10)
[2022-04-11 20:00] VITALS: BP 124/79
[2022-04-11] MEDS: MIRABEGRON 25 MG TAB (MYRBETRIQ) PO SCH (20:20)
[2022-04-11] MEDS: RIVAROXABAN 20 MG TABLET (XARELTO) PO SCH (20:20)
[2022-04-11] MEDS: MIRTAZAPINE 15 MG (REMERON) TAB PO SCH (20:20)
--- NOTE | 2022-04-12 05:40 | PM&R Progress Note ---
Subjective HPI/CC On Admission Date Seen by Provider: Apr 12, 2022 Time Seen by Provider: 12:00 Subjective/Events-last exam 04/12/2022: No major issues Sleeps a lot Uses hearing aides during therapy No pain reported No SHIPMAN 04/11/2022: Patient doing well No pain reported Hearing aides to be brought in No falls Subtle confusion Review of Systems General: Fatigue, Malaise Objective Exam Vital Signs Vital Signs Date Time Temp Pulse Resp B/P (MAP) Pulse Ox O2 Delivery O2 Flow Rate FiO2 04/12/22 09:00 97 Nasal Cannula 2.00 04/12/22 07:17 36.2 73 18 160/80 (106) Capillary Refill : General Appearance: No Apparent Distress, WD/WN, Chronically ill HEENT: PERRL/EOMI, Normal ENT Inspection, Pharynx Normal, Other (very [place]) Neck: Full Range of Motion, Normal Inspection, Non Tender, Supple, Carotid Bruit Respiratory: Chest Non Tender, Lungs Clear, Normal Breath Sounds, No Accessory Muscle Use, No Respiratory Distress Cardiovascular: Regular Rate, Rhythm, No Edema, No Gallop, No JVD, No Murmur, Normal Peripheral Pulses Gastrointestinal: Normal Bowel Sounds, No Organomegaly, No Pulsatile Mass, Non Tender, Soft Back: Normal Inspection, No CVA Tenderness, No Vertebral Tenderness Extremity: Normal Capillary Refill, Normal Inspection, Normal Range of Motion, Non Tender, No Calf Tenderness, No Pedal Edema Neurologic/Psychiatric: Alert, No Motor/Sensory Deficits, front office secretary II-XII Norm as Tested, Abnormal Gait, Depressed Affect, Disoriented, Motor Weakness (generalized) Skin: Normal Color, Warm/Dry Lymphatic: No Adenopathy Results/Procedures Lab Patient resulted labs reviewed. FIM Transfers Therapy Code Descriptions/Definitions Functional [place] Measure: 0=Not Assessed/NA 4=Minimal Assistance 1=Total Assistance 5=Supervision or Setup 2=Maximal Assistance 6=Modified [place] 3=Moderate Assistance 7=Complete IndependenceSCALE: Activities may be completed with or without assistive devices. 5-Ooiqjmaayp-njwzubi completes the activity by him/herself with no assistance from a helper. 5-Set-up or Clean-up Assistance-helper sets up or cleans up; patient completes activity. [place] assists only prior to or following the activity. 4-Supervision or Touching Assistance-helper provides verbal cues and/or to uching/steadying and/or contact guard assistance as patient completes activity. Assistance may be provided throughout the activity or intermittently. 3-Partial/Moderate Assistance-helper does LESS THAN HALF the effort. [place] lifts, holds or supports trunk or limbs, but provides less than half the effort. 2-Substantial/Maximal Assistance-helper does MORE THAN HALF the effort. [place] lifts or holds trunk or limbs and provides more than half the effort. 1-Lclmwfzhr-qowlyj does ALL the effort. Patient does none of the effort to complete the activity. Or, the assistance of 2 or more helpers is required for the patient to complete the activity. If activity was not attempted, code reason: 7-Patient Refused. 9-Not Applicable-not attempted and the patient did not perform the activity before the current illness, exacerbation or injury. 10-Not Attempted due to Environmental Limitations-(lack of equipment, weather restraints, etc.). 88-Not Attempted due to Medical Conditions or Safety Concerns. Roll Left to Right (QC): 4 Sit to Lying (QC): 4 Sit to Stand (QC): 6 Chair/Wfl-mq-Bgntu Xfer(QC): 4 Car Transfer (QC): 4 Gait Training Does the Patient Walk?: Yes Walk 10 feet (QC): 5 Walk 50 ft with 2 Turns(QC): 3 Walk 150 ft (QC): 4 Walking 10ft/uneven surface-QC: 4 Gait Persons Needed: 1 Gait Assistive Device: FWW Wheelchair Training Does the Pt Use a Wheelchair?: No Wheel 50 ft with 2 turns (QC): 9 Wheel 150 ft (QC): 9 Stair Training #of Steps: 0 1 Step (curb) (QC): 9 4 Steps (QC): 9 12 Steps (QC): 9 Balance Picking up an Object (QC): 4 ADL-Treatment Eating (QC): 6 Oral Hygiene (QC): 4 (SBA) Shower/Bathe Self (QC): 4 (SBA, pt able to wash/dry all parts with VCs for sequencing and redirection to task.) Upper Body Dressing (QC): 5 Lower Body Dressing (QC): 3 (Mod A overall.) On/Off Footwear (QC): 3 (Mod A overall.) Toileting Hygiene (QC): 3 (Mod A overall. 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
[2022-04-12] MEDS: inSUlin ASPART (NovoLOG) 1 UNIT/0.01 ML (CHARGE PER UNIT) SC SCH ×4 (06:00→20:32)
[2022-04-12] MEDS: VENlafaxine XR 37.5 MG (EFFEXOR XR) CAP PO SCH (06:34)
[2022-04-12] MEDS: DICYCLOMINE 10 MG (BENTYL) CAP PO SCH ×3 (06:35→18:06)
[2022-04-12 07:17] VITALS: BP 160/80
[2022-04-12] MEDS: ASCORBIC ACID (VIT C) 500 MG TABLET PO SCH (08:56)
[2022-04-12] MEDS: LORATADINE (CLARITIN) 10 MG TAB PO SCH (08:56)
[2022-04-12] MEDS: PANTOPRAZOLE 40 MG (PROTONIX) TAB PO SCH ×2 (08:56→20:40)
[2022-04-12] MEDS: ASPIRIN E.C. 81 MG (ECOTRIN) TAB PO SCH (08:56)
[2022-04-12] MEDS: SENNA W/DOCUSATE (SENOKOT S) TABLET PO SCH ×2 (08:56→20:40)
[2022-04-12] MEDS: DOCUSATE SODIUM 100 MG (COLACE) CAP PO SCH ×3 (08:56→20:39)
[2022-04-12] MEDS: polyethylene glycoL POWDER 17 GM (MIRALAX) PACK PO SCH ×2 (08:57→20:32)
--- NOTE | 2022-04-12 10:49 | Physical Therapy Daily Note ---
PT Daily Note-Current Subjective Pt. agrees to Rx. Needs repeated instruction 2/2 [place] and cogn issues. no c/o pain Pain Location: No Pain Reported Section J - Health Conditions 1. Rarely or not at all 2. Occasionally 3. Frequently 4. Almost constantly 8. Unable to answer Pain Effect on Sleep: 1 Pain Interference with Therapy: 1 Pain Interference w/Day-to-Day: 1 Mental Status Patient Orientation: Confused Attachments: Oxygen Transfers SCALE: Activities may be completed with or without assistive devices. 0-Olwggcoqaa-aijiwsq completes the activity by him/herself with no assistance from a helper. 5-Set-up or Clean-up Assistance-helper sets up or cleans up; patient completes activity. [place] assists only prior to or following the activity. 4-Supervision or Touching Assistance-helper provides verbal cues and/or touching/steadying and/or contact guard assistance as patient completes activity. Assistance may be provided throughout the activity or intermittently. 3-Partial/Moderate Assistance-helper does LESS THAN HALF the effort. [place] lifts, holds or supports trunk or limbs, but provides less than half the effort. 2-Substantial/Maximal Assistance-helper does MORE THAN HALF the effort. [place] lifts or holds trunk or limbs and provides more than half the effort. 9-Kbgisybcv-dyplic does ALL the effort. Patient does none of the effort to complete the activity. Or, the assistance of 2 or more helpers is required for the patient to complete the activity. If activity was not attempted, code reason: 7-Patient Refused. 9-Not Applicable-not attempted and the patient did not perform the activity before the current illness, exacerbation or injury. 10-Not Attempted due to Environmental Limitations-(lack of equipment, weather restraints, etc.). 88-Not Attempted due to Medical Conditions or Safety Concerns. min to mod asst in out bed and chair as pt; is retropulsive, sits back many times, not taking cues for leaning forward to wt shift, feet sliding forward under FWW Weight Bearing Right Lower Extremity: Right Full Weight Bearing Left Lower Extremity: Left Full Weight Bearing Gait Training Does the Patient Walk?: Yes Gait Assistive Device: FWW gait 80 ft x 2 FWW slow with much attention needed to guide pt and to steer walker for her as she does not understand goal destination etc, min to CGA for balance Exercises Seated Therapy Exercises: Ankle pumps, Sit to stand, Long arc quads, Hip flexion, Hip abd/add Seated Reps: 10 Treatments TRFs, gait, toileting with mod asst , seated LE ex Assessment Current Status: Fair Progress dependent for all for safety and guidance PT Wound Nurse Goals Usp Goals PT Usp Goals Time Frame: May 10, 2022 Roll Left & Right (QC): 6 Sit to Lying (QC): 6 Lying-Sitting on Side/Bed(QC): 6 Sit to Stand (QC): 6 Chair/Vut-gd-Kvyaa Xfer(QC): 6 Toilet Transfer (QC): 6 Car Transfer (QC): 6 Does the Patient Walk: Yes Walk 10 feet (QC): 6 Walk 50ft with 2 Turns (QC): 6 Walk 150 ft (QC): 6 Walking 10ft on Uneven Surface: 6 1 Step (curb) (QC): 9 4 Steps (QC): 9 12 Steps (QC): 9 Picking up an Object (QC): 6 Does the Pt use WC or Scooter?: No Wheel 50 feet with 2 turns (QC: 9 Wheel 150 feet: 9 PT Plan Treatment/Plan Treatment Plan: Continue Plan of Care Treatment Plan: Bed Mobility, Education, Functional Activity Priya, Functional Strength, Group Therapy, Gait, Safety, Therapeutic Exercise, Transfers Treatment Duration: May 16, 2022 Frequency: At least 5 of 7 days/Wk (IRF) Estimated Hrs Per Day: 1.5 hours per day Patient and/or Family Agrees t: Yes Safety Risks/Education Patient Education: Gait Training, Transfer Techniques, Correct Positioning, Safety Issues Teaching Recipient: Patient Teaching Methods: Demonstration, Discussion Response to Teaching: Unable to Return Demonstration, Unable to Comprehend, Reinforcement Needed Time Time In: 935 Time Out: 957 DATE: Apr 12, 2022 Total Billed Treatment Time: 22 Total Billed Treatment 1,GT22m VERONICA COSTA TRANSIT WORKER Apr 12, 2022 10:49
[2022-04-12 20:30] VITALS: BP 137/82
[2022-04-12] MEDS: MIRABEGRON 25 MG TAB (MYRBETRIQ) PO SCH (20:40)
[2022-04-12] MEDS: RIVAROXABAN 20 MG TABLET (XARELTO) PO SCH (20:40)
[2022-04-12] MEDS: MIRTAZAPINE 15 MG (REMERON) TAB PO SCH (20:40)
--- NOTE | 2022-04-13 06:32 | PM&R Progress Note ---
Subjective HPI/CC On Admission Date Seen by Provider: Apr 13, 2022 Time Seen by Provider: 12:30 Subjective/Events-last exam 04/13/2022: Improved status Hearing aides in place No pain reported Walks well 04/12/2022: No major issues Sleeps a lot Uses hearing aides during therapy No pain reported No SHIPMAN 04/11/2022: Patient doing well No pain reported Hearing aides to be brought in No falls Subtle confusion Review of Systems General: Fatigue, Malaise Objective Exam Vital Signs Vital Signs Date Time Temp Pulse Resp B/P (MAP) Pulse Ox O2 Delivery O2 Flow Rate FiO2 04/13/22 21:05 Nasal Cannula 2.00 04/13/22 19:56 36.3 81 18 137/82 (100) 96 Capillary Refill : General Appearance: No Apparent Distress, WD/WN, Chronically ill HEENT: PERRL/EOMI, Normal ENT Inspection, Pharynx Normal, Other (very [place]) Neck: Full Range of Motion, Normal Inspection, Non Tender, Supple, Carotid Bruit Respiratory: Chest Non Tender, Lungs Clear, Normal Breath Sounds, No Accessory Muscle Use, No Respiratory Distress Cardiovascular: Regular Rate, Rhythm, No Edema, No Gallop, No JVD, No Murmur, Normal Peripheral Pulses Gastrointestinal: Normal Bowel Sounds, No Organomegaly, No Pulsatile Mass, Non Tender, Soft Back: Normal Inspection, No CVA Tenderness, No Vertebral Tenderness Extremity: Normal Capillary Refill, Normal Inspection, Normal Range of Motion, Non Tender, No Calf Tenderness, No Pedal Edema Neurologic/Psychiatric: Alert, No Motor/Sensory Deficits, hat braider II-XII Norm as Tested, Abnormal Gait, Depressed Affect, Disoriented, Motor Weakness (generalized) Skin: Normal Color, Warm/Dry Lymphatic: No Adenopathy Results/Procedures Lab Patient resulted labs reviewed. FIM Transfers Therapy Code Descriptions/Definitions Functional [place] Measure: 0=Not Assessed/NA 4=Minimal Assistance 1=Total Assistance 5=Supervision or Setup 2=Maximal Assistance 6=Modified [place] 3=Moderate Assistance 7=Complete IndependenceSCALE: Activities may be completed with or without assistive devices. 5-Ygszhoayad-ougqlpi completes the activity by him/herself with no assistance from a helper. 5-Set-up or Clean-up Assistance-helper sets up or cleans up; patient completes activity. [place] assists only prior to or following the activity. 4-Supervision or Touching Assistance-helper provides verbal cues and/or touching/steadying and/or contact guard assistance as patient completes activity. Assistance may be provided throughout the activity or intermittently. 3-Partial/Moderate Assistance-helper does LESS THAN HALF the effort. [place] lifts, holds or supports trunk or limbs, but provides less than half the effort. 2-Substantial/Maximal Assistance-helper does MORE THAN HALF the effort. [place] lifts or holds trunk or limbs and provides more than half the effort. 2-Rkfnagnil-lvjdhy does ALL the effort. Patient does none of the effort to complete the activity. Or, the assistance of 2 or more helpers is required for the patient to complete the activity. If activity was not attempted, code reason: 7-Patient Refused. 9-Not Applicable-not attempted and the patient did not perform the activity before the current illness, exacerbation or injury. 10-Not Attempted due to Environmental Limitations-(lack of equipment, weather restraints, etc.). 88-Not Attempted due to Medical Conditions or Safety Concerns. Roll Left to Right (QC): 4 Sit to Lying (QC): 4 Sit to Stand (QC): 6 Chair/Wjt-nu-[place] Xfer(QC): 4 Car Transfer (QC): 4 Gait Training Does the Patient Walk?: Yes Walk 10 feet (QC): 5 Walk 50 ft with 2 Turns(QC): 3 Walk 150 ft (QC): 4 Walking 10ft/uneven surface-QC: 4 Gait Persons Needed: 1 Gait Assistive Device: FWW Wheelchair Training Does the Pt Use a Wheelchair?: No Wheel 50 ft with 2 turns (QC): 9 Wheel 150 ft (QC): 9 Stair Training #of Steps: 0 1 Step (curb) (QC): 9 4 Steps (QC): 9 12 Steps (QC): 9 Balance Picking up an Object (QC): 4 ADL-Treatment Eating (QC): 6 Oral Hygiene (QC): 4 (SBA) Shower/Bathe Self (QC): 4 (SBA, pt able to wash/dry all parts with VCs for sequencing and redirection to task.) Upper Body Dressing (QC): 5 Lower Body Dressing (QC): 3 (Mod A overall.) On/Off Footwear (QC): 3 (Mod A overall.) Toileting Hygiene (QC): 3 (Mod A overall. 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
[2022-04-13] MEDS: DICYCLOMINE 10 MG (BENTYL) CAP PO SCH ×3 (06:44→18:12)
[2022-04-13] MEDS: inSUlin ASPART (NovoLOG) 1 UNIT/0.01 ML (CHARGE PER UNIT) SC SCH ×4 (06:44→20:09)
[2022-04-13] MEDS: VENlafaxine XR 37.5 MG (EFFEXOR XR) CAP PO SCH (06:44)
[2022-04-13 07:16] VITALS: BP 162/85
[2022-04-13] MEDS: DOCUSATE SODIUM 100 MG (COLACE) CAP PO SCH ×3 (08:59→20:41)
[2022-04-13] MEDS: ASPIRIN E.C. 81 MG (ECOTRIN) TAB PO SCH (09:31)
[2022-04-13] MEDS: SENNA W/DOCUSATE (SENOKOT S) TABLET PO SCH ×2 (09:31→20:41)
[2022-04-13] MEDS: LORATADINE (CLARITIN) 10 MG TAB PO SCH (09:31)
[2022-04-13] MEDS: polyethylene glycoL POWDER 17 GM (MIRALAX) PACK PO SCH ×2 (09:31→20:41)
[2022-04-13] MEDS: PANTOPRAZOLE 40 MG (PROTONIX) TAB PO SCH ×2 (09:31→21:07)
[2022-04-13] MEDS: ASCORBIC ACID (VIT C) 500 MG TABLET PO SCH (09:32)
[2022-04-13 19:56] VITALS: BP 137/82
[2022-04-13] MEDS: MIRTAZAPINE 15 MG (REMERON) TAB PO SCH (21:07)
[2022-04-13] MEDS: RIVAROXABAN 20 MG TABLET (XARELTO) PO SCH (21:07)
[2022-04-13] MEDS: MONTELUKAST 10 MG (SINGULAIR) TAB PO SCH (21:07)
[2022-04-13] MEDS: MIRABEGRON 25 MG TAB (MYRBETRIQ) PO SCH (21:07)
[2022-04-14] MEDS: VENlafaxine XR 37.5 MG (EFFEXOR XR) CAP PO SCH (06:21)
[2022-04-14] MEDS: DICYCLOMINE 10 MG (BENTYL) CAP PO SCH ×3 (06:21→16:10)
[2022-04-14 06:27] LABS: BASOPHILS % (AUTO) 0 % (0-10); EOSINOPHILS # (AUTO) 0.1 10^3/uL (0.0-0.3); EOSINOPHILS % (AUTO) 1 % (0-10); HEMATOCRIT 38 % (35-52); LYMPHOCYTES # (AUTO) 2.5 10^3/uL (1.0-4.0); LYMPHOCYTES % (AUTO) 43 % (12-44); MEAN CORPUSCULAR HEMOGLOBIN 30 pg (25-34); MEAN CORPUSCULAR HGB CONC 32 g/dL (32-36); MEAN CORPUSCULAR VOLUME 94 fL (80-99); MEAN PLATELET VOLUME 9.7 fL (9.0-12.2); MONOCYTES # (AUTO) 0.5 10^3/uL (0.0-1.0); MONOCYTES % (AUTO) 9 % (0-12); NEUTROPHILS # (AUTO) 2.7 10^3/uL (1.8-7.8); NEUTROPHILS % (AUTO) 46 % (42-75); PLATELET COUNT 177 10^3/uL (130-400); WHITE BLOOD COUNT 5.7 10^3/uL (4.3-11.0)
[2022-04-14 06:53] LABS: ALBUMIN 3.7 GM/DL (3.2-4.5); POTASSIUM 3.7 MMOL/L (3.6-5.0)
[2022-04-14 06:54] LABS: CALCIUM 8.9 MG/DL (8.5-10.1)
[2022-04-14 06:55] LABS: TOTAL PROTEIN 6.9 GM/DL (6.4-8.2)
--- NOTE | 2022-04-14 06:55 | PM&R Progress Note ---
Subjective HPI/CC On Admission Date Seen by Provider: Apr 14, 2022 Time Seen by Provider: 09:00 Subjective/Events-last exam 04/14/2022: Patient doing well No pain reported Cam boot in place Hearing aides help her recovery 04/13/2022: Improved status Hearing aides in place No pain reported Walks well 04/12/2022: No major issues Sleeps a lot Uses hearing aides during therapy No pain reported No SHIPMAN 04/11/2022: Patient doing well No pain reported Hearing aides to be brought in No falls Subtle confusion Review of Systems General: Fatigue, Malaise Objective Exam Vital Signs Vital Signs Date Time Temp Pulse Resp B/P (MAP) Pulse Ox O2 Delivery O2 Flow Rate FiO2 04/14/22 20:46 35.8 92 20 140/72 (94) 95 Nasal Cannula 2.00 Capillary Refill : General Appearance: No Apparent Distress, WD/WN, Chronically ill HEENT: PERRL/EOMI, Normal ENT Inspection, Pharynx Normal, Other (very [place]) Neck: Full Range of Motion, Normal Inspection, Non Tender, Supple, Carotid Bruit Respiratory: Chest Non Tender, Lungs Clear, Normal Breath Sounds, No Accessory Muscle Use, No Respiratory Distress Cardiovascular: Regular Rate, Rhythm, No Edema, No Gallop, No JVD, No Murmur, Normal Peripheral Pulses Gastrointestinal: Normal Bowel Sounds, No Organomegaly, No Pulsatile Mass, Non Tender, Soft Back: Normal Inspection, No CVA Tenderness, No Vertebral Tenderness Extremity: Normal Capillary Refill, Normal Inspection, Normal Range of Motion, Non Tender, No Calf Tenderness, No Pedal Edema Neurologic/Psychiatric: Alert, No Motor/Sensory Deficits, pearl diver II-XII Norm as Tested, Abnormal Gait, Depressed Affect, Disoriented, Motor Weakness (generalized) Skin: Normal Color, Warm/Dry Lymphatic: No Adenopathy Results/Procedures Lab Laboratory Tests 04/14/22 06:20 Patient resulted labs reviewed. FIM Transfers Therapy Code Descriptions/Definitions Functional [place] Measure: 0=Not Assessed/NA 4=Minimal Assistance 1=Total Assistance 5=Supervision or Setup 2=Maximal Assistance 6=Modified [place] 3=Moderate Assistance 7=Complete IndependenceSCALE: Activities may be completed with or without assistive devices. 8-Qinytxgnga-cfycpkz completes the activity by him/herself with no assistance from a helper. 5-Set-up or Clean-up Assistance-helper sets up or cleans up; patient completes activity. [place] assists only prior to or following the activity. 4-Supervision or Touching Assistance-helper provides verbal cues and/or touching/steadying and/or contact guard assistance as patient completes activity. Assistance may be provided throughout the activity or intermittently. 3-Partial/Moderate Assistance-helper does LESS THAN HALF the effort. [place] lifts, holds or supports trunk or limbs, but provides less than half the effort. 2-Substantial/Maximal Assistance-helper does MORE THAN HALF the effort. [place] lifts or holds trunk or limbs and provides more than half the effort. 8-Xbtmzbzum-javjvt does ALL the effort. Patient does none of the effort to complete the activity. Or, the assistance of 2 or more helpers is required for the patient to complete the activity. If activity was not attempted, code reason: 7-Patient Refused. 9-Not Applicable-not attempted and the patient did not perform the activity before the current illness, exacerbation or injury. 10-Not Attempted due to Environmental Limitations-(lack of equipment, weather restraints, etc.). 88-Not Attempted due to Medical Conditions or Safety Concerns. Roll Left to Right (QC): 4 Sit to Lying (QC): 4 Sit to Stand (QC): 6 Chair/[place] Xfer(QC): 4 Car Transfer (QC): 4 Gait Training Does the Patient Walk?: Yes Walk 10 feet (QC): 5 Walk 50 ft with 2 Turns(QC): 3 Walk 150 ft (QC): 4 Walking 10ft/uneven surface-QC: 4 Gait Persons Needed: 1 Gait Assistive Device: FWW Wheelchair Training Does the Pt Use a Wheelchair?: No Wheel 50 ft with 2 turns (QC): 9 Wheel 150 ft (QC): 9 Stair Training #of Steps: 0 1 Step (curb) (QC): 9 4 Steps (QC): 9 12 Steps (QC): 9 Balance Picking up an Object (QC): 4 ADL-Treatment Eating (QC): 6 Oral Hygiene (QC): 4 (SBA) Shower/Bathe Self (QC): 4 (SBA, pt able to wash/dry all parts with VCs for sequencing and redirection to task.) Upper Body Dressing (QC): 5 Lower Body Dressing (QC): 3 (Mod A overall.) On/Off Footwear (QC): 3 (Mod A overall.) Toileting Hygiene (QC): 3 (Mod A overall. 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
[2022-04-14 06:57] LABS: BILIRUBIN,TOTAL 0.4 MG/DL (0.1-1.0)
[2022-04-14] MEDS: inSUlin ASPART (NovoLOG) 1 UNIT/0.01 ML (CHARGE PER UNIT) SC SCH ×4 (06:58→20:47)
[2022-04-14 06:59] LABS: CREATININE SERUM 0.84 MG/DL (0.60-1.30)
[2022-04-14] MEDS: PANTOPRAZOLE 40 MG (PROTONIX) TAB PO SCH ×2 (08:30→20:47)
[2022-04-14] MEDS: LORATADINE (CLARITIN) 10 MG TAB PO SCH (08:30)
[2022-04-14] MEDS: ASPIRIN E.C. 81 MG (ECOTRIN) TAB PO SCH (08:30)
[2022-04-14] MEDS: ASCORBIC ACID (VIT C) 500 MG TABLET PO SCH (08:30)
[2022-04-14] MEDS: polyethylene glycoL POWDER 17 GM (MIRALAX) PACK PO SCH ×2 (08:34→20:57)
[2022-04-14] MEDS: DOCUSATE SODIUM 100 MG (COLACE) CAP PO SCH ×3 (08:34→20:56)
[2022-04-14] MEDS: SENNA W/DOCUSATE (SENOKOT S) TABLET PO SCH ×2 (08:35→20:57)
[2022-04-14 08:36] VITALS: BP 142/82
--- NOTE | 2022-04-14 09:18 | Occupational Ther Daily Note ---
OT Current Status-Daily Note Subjective Pt up in recliner, agreeable to OT Tx. Pt reports she is hungry, RN okays for pt to have a snack. Mental Status/Objective Attachments: Oxygen (2L) ADL-Treatment Therapy Code Descriptions/Definitions Functional [place] Measure: 0=Not Assessed/NA 4=Minimal Assistance 1=Total Assistance 5=Supervision or Setup 2=Maximal Assistance 6=Modified [place] 3=Moderate Assistance 7=Complete IndependenceSCALE: Activities may be completed with or without assistive devices. 8-Aohgogfpzd-ihmcukg completes the activity by him/herself with no assistance from a helper. 5-Set-up or Clean-up Assistance-helper sets up or cleans up; patient completes activity. [place] assists only prior to or following the activity. 4-Supervision or Touching Assistance-helper provides verbal cues and/or touching/steadying and/or contact guard assistance as patient completes activity. Assistance may be provided throughout the activity or intermittently. 3-Partial/Moderate Assistance-helper does LESS THAN HALF the effort. [place] lifts, holds or supports trunk or limbs, but provides less than half the effort. 2-Substantial/Maximal Assistance-helper does MORE THAN HALF the effort. [place] lifts or holds trunk or limbs and provides more than half the effort. 8-Yigielqeg-swavqn does ALL the effort. Patient does none of the effort to complete the activity. Or, the assistance of 2 or more helpers is required for the patient to complete the activity. If activity was not attempted, code reason: 7-Patient Refused. 9-Not Applicable-not attempted and the patient did not perform the activity before the current illness, exacerbation or injury. 10-Not Attempted due to Environmental Limitations-(lack of equipment, weather restraints, etc.). 88-Not Attempted due to Medical Conditions or Safety Concerns. Eating (QC): 5 (assist opening container. ) Other Treatment Pt in recliner, states she is hungry, but indicates lunch should be here soon. OT informed pt it is 0900, so lunch is still a few hours away. Pt agreeable to having a snack. Pt required assistance opening pudding container and yumiko cracker packet. Pt then able to eat without assistance. Pt used FWW to perform functional mobility to therapy gym, SBA-CGA. OT tx focused on increasing BUE Strength and activity tolerance. Pt completed UE reaching task, placing/removing 1" pegs from foam pegboard, completing x100, several rest breaks. Pt returned to room using FWW, SBA, transferring to recliner. Post tx, pt in recliner, call light in reach and all needs met, chair alarm activated and telesitter present. Education OT Patient Education: Correct positioning, Energy conservation, Exercise program, Modified ADL techniques, Progress toward Goal/Update tx plan, Purpose of tx/functional activities, Rehab process Teaching Recipient: Patient Teaching Methods: Discussion Response to Teaching: Verbalize Understanding OT Short Term Goals Short Term Goals Time Frame: Apr 18, 2022 Upper body dressin Lower body dressin OT Turbine Attendant Goals Usp Goals Time Frame: May 02, 2022 Acute change in mental status: 0 Inattention: 0 Disorganized thinkin Altered level of consciousness: 0 Eating (QC): 6 Oral Hygiene (QC): 6 Toileting Hygiene (QC): 6 Shower/Bathe Self (QC): 4 Upper Body Dressing (QC): 6 Lower Body Dressing (QC): 6 On/Off Footwear (QC): 4 Additional Goals: 1-Demonstrate ADL Tasks, 2-Verbalize Understanding, 3- ImproveStrength/Priya 1=Demonstrate adherence to instructed precautions during ADL tasks. 2=Patient will verbalize/demonstrate understanding of assistive devices/modifications for ADL. 3=Patient will improve strength/tolerance for activity to enable patient to perform ADL's. OT Education/Plan Problem List/Assessment Assessment: Decreased Activ Tolerance, Decreased UE Strength, Impaired Funct Balance, Impaired I ADL's, Impaired Self-Care Skills Discharge Recommendations Plan/Recommendations: Continue POC Treatment Plan/Plan of Care Patient would benefit from OT for education, treatment and training to promote independence in ADL's, mobility, safety and/or upper extremity function for ADL's. Plan of Care: ADL Retraining, Functional Mobility, Group Exercise/Act as Ind, UE Funct Exercise/Act Treatment Duration: May 02, 2022 Frequency: At least 5 of 7 days/Wk (IRF) Estimated Hrs Per Day: 1.5 hours per day Agreement: Yes Rehab Potential: Fair Time Start Time: 09:00 Stop Time: 10:30 DATE: Apr 14, 2022 Total Time Billed (hr/min): 90 Billed Treatment Time 1, ADL 2 (30'), FA 4 (60') CHELSEY FERNANDES OT Apr 14, 2022 09:18
--- NOTE | 2022-04-14 10:05 | Physical Therapy Daily Note ---
PT Daily Note-Current Subjective Pt sitting in recliner upon arrival. Pt agrees to PT. Pt reports needing to wear cam boot for L ankle fx. Nursing checking status so will wear until confirmed. Pain Location: No Pain Reported Section J - Health Conditions 1. Rarely or not at all 2. Occasionally 3. Frequently 4. Almost constantly 8. Unable to answer Pain Effect on Sleep: 1 Pain Interference with Therapy: 1 Pain Interference w/Day-to-Day: 1 Mental Status Patient Orientation: Person, Place Attachments: Oxygen Transfers SCALE: Activities may be completed with or without assistive devices. 7-Jdzmhqzvrl-vioemwn completes the activity by him/herself with no assistance from a helper. 5-Set-up or Clean-up Assistance-helper sets up or cleans up; patient completes activity. [place] assists only prior to or following the activity. 4-Supervision or Touching Assistance-helper provides verbal cues and/or touch ing/steadying and/or contact guard assistance as patient completes activity. Assistance may be provided throughout the activity or intermittently. 3-Partial/Moderate Assistance-helper does LESS THAN HALF the effort. [place] lifts, holds or supports trunk or limbs, but provides less than half the effort. 2-Substantial/Maximal Assistance-helper does MORE THAN HALF the effort. [place] lifts or holds trunk or limbs and provides more than half the effort. 4-Nsjsbfozz-opmgku does ALL the effort. Patient does none of the effort to complete the activity. Or, the assistance of 2 or more helpers is required for the patient to complete the activity. If activity was not attempted, code reason: 7-Patient Refused. 9-Not Applicable-not attempted and the patient did not perform the activity before the current illness, exacerbation or injury. 10-Not Attempted due to Environmental Limitations-(lack of equipment, weather restraints, etc.). 88-Not Attempted due to Medical Conditions or Safety Concerns. Sit to Stand (QC): 4 Toilet Transfer (QC): 4 Weight Bearing Right Lower Extremity: Right Full Weight Bearing Left Lower Extremity: Left Full Weight Bearing Gait Training Does the Patient Walk?: Yes Distance: 10' x2 Walk 10 feet (QC): 4 Gait Assistive Device: FWW Exercises Supine Ex: Ankle pumps, Quad Set, Glut sets, Heel Slides, Hip abd/add Supine Reps: 15 Seated Therapy Exercises: Ankle pumps, Long arc quads, Hip flexion Seated Reps: 15 Treatments Pt completes EX at recliner then given meds by Nurse. Pt TF to standing and stands for ~1 min before amb to BR. Pt uses BR, completing pericare then amb. back to recliner after washing hands. Pt resting in recliner at end of tx w/all needs met, call light in hand. Assessment Current Status: Fair Progress Pt is still confused at times and fatigues quickly. PT Penitentiary Goals Penitentiary Goals PT Therapist'S Assistant Goals Time Frame: May 10, 2022 Roll Left & Right (QC): 6 Sit to Lying (QC): 6 Lying-Sitting on Side/Bed(QC): 6 Sit to Stand (QC): 6 Chair/Kkl-vg-Wasqo Xfer(QC): 6 Toilet Transfer (QC): 6 Car Transfer (QC): 6 Does the Patient Walk: Yes Walk 10 feet (QC): 6 Walk 50ft with 2 Turns (QC): 6 Walk 150 ft (QC): 6 Walking 10ft on Uneven Surface: 6 1 Step (curb) (QC): 9 4 Steps (QC): 9 12 Steps (QC): 9 Picking up an Object (QC): 6 Does the Pt use WC or Scooter?: No Wheel 50 feet with 2 turns (QC: 9 Wheel 150 feet: 9 PT Plan Problem List Problem List: Activity Tolerance, Functional Strength, Safety Treatment/Plan Treatment Plan: Continue Plan of Care Treatment Plan: Bed Mobility, Education, Functional Activity Priya, Functional Strength, Group Therapy, Gait, Safety, Therapeutic Exercise, Transfers Treatment Duration: May 16, 2022 Frequency: At least 5 of 7 days/Wk (IRF) Estimated Hrs Per Day: 1.5 hours per day Patient and/or Family Agrees t: Yes Time Time In: 800 Time Out: 900 DATE: Apr 14, 2022 Total Billed Treatment Time: 60 Total Billed Treatment 1, EX (20m), FA x2 (25m) & GT (15m) ERIN MARLEY RISK CONTROL SPECIALIST Apr 14, 2022 10:05
--- NOTE | 2022-04-14 15:32 | Physical Therapy Daily Note ---
PT Daily Note-Current Subjective Pt sitting in recliner upon arrival. Pt agrees to PT. Pain Section J - Health Conditions 1. Rarely or not at all 2. Occasionally 3. Frequently 4. Almost constantly 8. Unable to answer Pain Effect on Sleep: 1 Pain Interference with Therapy: 1 Pain Interference w/Day-to-Day: 1 Mental Status Patient Orientation: Person, Place Attachments: Oxygen Transfers SCALE: Activities may be completed with or without assistive devices. 6-Xuscuhkuam-zlmfyji completes the activity by him/herself with no assistance from a helper. 5-Set-up or Clean-up Assistance-helper sets up or cleans up; patient completes activity. [place] assists only prior to or following the activity. 4-Supervision or Touching Assistance-helper provides verbal cues and/or touching/steadying and/or contact guard assistance as patient completes activity. Assistance may be provided throughout the activity or intermittently. 3-Partial/Moderate Assistance-helper does LESS THAN HALF the effort. [place] lifts, holds or supports trunk or limbs, but provides less than half the effort. 2-Substantial/Maximal Assistance-helper does MORE THAN HALF the effort. [place] lifts or holds trunk or limbs and provides more than half the effort. 4-Wjhiermcb-vhfjfo does ALL the effort. Patient does none of the effort to complete the activity. Or, the assistance of 2 or more helpers is required for the patient to complete the activity. If activity was not attempted, code reason: 7-Patient Refused. 9-Not Applicable-not attempted and the patient did not perform the activity befo re the current illness, exacerbation or injury. 10-Not Attempted due to Environmental Limitations-(lack of equipment, weather re straints, etc.). 88-Not Attempted due to Medical Conditions or Safety Concerns. Sit to Stand (QC): 3 Toilet Transfer (QC): 3 Weight Bearing Right Lower Extremity: Right Full Weight Bearing Left Lower Extremity: Left Full Weight Bearing Gait Training Does the Patient Walk?: Yes Distance: 20' Walk 10 feet (QC): 4 Gait Persons Needed: 1 Gait Assistive Device: FWW Very slow kirsten, occasional assistance w/moving objects out of pt's way so pt doesn't run into them. Treatments TF to standing and amb to BR. After toileting, pt able to complete pericare. Pt stands at sink to wash hands then amb to closet to check what clothes are available for upcoming d/c on . Pt returns to recliner to rest. All needs met,call light in hand. Assessment Current Status: Fair Progress Pt is confused at times, redirection needed for safety. PT Curb Builder Goals Residential Goals PT Residential Goals Time Frame: May 10, 2022 Roll Left & Right (QC): 6 Sit to Lying (QC): 6 Lying-Sitting on Side/Bed(QC): 6 Sit to Stand (QC): 6 Chair/Syq-iw-Jzkcc Xfer(QC): 6 Toilet Transfer (QC): 6 Car Transfer (QC): 6 Does the Patient Walk: Yes Walk 10 feet (QC): 6 Walk 50ft with 2 Turns (QC): 6 Walk 150 ft (QC): 6 Walking 10ft on Uneven Surface: 6 1 Step (curb) (QC): 9 4 Steps (QC): 9 12 Steps (QC): 9 Picking up an Object (QC): 6 Does the Pt use WC or Scooter?: No Wheel 50 feet with 2 turns (QC: 9 Wheel 150 feet: 9 PT Plan Problem List Problem List: Activity Tolerance, Functional Strength, Safety Treatment/Plan Treatment Plan: Continue Plan of Care Treatment Plan: Bed Mobility, Education, Functional Activity Priya, Functional Strength, Group Therapy, Gait, Safety, Therapeutic Exercise, Transfers Treatment Duration: May 16, 2022 Frequency: At least 5 of 7 days/Wk (IRF) Estimated Hrs Per Day: 1.5 hours per day Patient and/or Family Agrees t: Yes Safety Risks/Education Patient Education: Gait Training, Transfer Techniques, Safety Issues Teaching Recipient: Patient Teaching Methods: Discussion Response to Teaching: Reinforcement Needed Time Time In: 1330 Time Out: 1400 DATE: Apr 14, 2022 Total Billed Treatment Time: 30 Total Billed Treatment 1, FA (15m) & GT (15m) ERIN MARLEY PRINT LINE TAILER Apr 14, 2022 15:32
[2022-04-14 20:46] VITALS: BP 140/72
[2022-04-14] MEDS: MIRABEGRON 25 MG TAB (MYRBETRIQ) PO SCH (20:47)
[2022-04-14] MEDS: MONTELUKAST 10 MG (SINGULAIR) TAB PO SCH (20:47)
[2022-04-14] MEDS: RIVAROXABAN 20 MG TABLET (XARELTO) PO SCH (20:47)
[2022-04-14] MEDS: MIRTAZAPINE 15 MG (REMERON) TAB PO SCH (20:47)
--- NOTE | 2022-04-15 05:30 | PM&R Progress Note ---
Subjective HPI/CC On Admission Date Seen by Provider: Apr 15, 2022 Time Seen by Provider: 09:00 Subjective/Events-last exam 04/15/2022: No major issues Walking well with walker No falls No pain reported 04/14/2022: Patient doing well No pain reported Cam boot in place Hearing aides help her recovery 04/13/2022: Improved status Hearing aides in place No pain reported Walks well 04/12/2022: No major issues Sleeps a lot Uses hearing aides during therapy No pain reported No [place]MAN 04/11/2022: Patient doing well No pain reported Hearing aides to be brought in No falls Subtle confusion Review of Systems General: Fatigue, Malaise Objective Exam Vital Signs Vital Signs Date Time Temp Pulse Resp B/P (MAP) Pulse Ox O2 Delivery O2 Flow Rate FiO2 04/15/22 21:30 96 Room Air 04/15/22 20:36 36.2 87 16 117/66 (83) 04/15/22 09:09 2.00 Capillary Refill : General Appearance: No Apparent Distress, WD/WN, Chronically ill HEENT: PERRL/EOMI, Normal ENT Inspection, Pharynx Normal, Other (very [place]) Neck: Full Range of Motion, Normal Inspection, Non Tender, Supple, Carotid Bruit Respiratory: Chest Non Tender, Lungs Clear, Normal Breath Sounds, No Accessory Muscle Use, No Respiratory Distress Cardiovascular: Regular Rate, Rhythm, No Edema, No Gallop, No JVD, No Murmur, Normal Peripheral Pulses Gastrointestinal: Normal Bowel Sounds, No Organomegaly, No Pulsatile Mass, Non Tender, Soft Back: Normal Inspection, No CVA Tenderness, No Vertebral Tenderness Extremity: Normal Capillary Refill, Normal Inspection, Normal Range of Motion, Non Tender, No Calf Tenderness, No Pedal Edema Neurologic/Psychiatric: Alert, No Motor/Sensory Deficits, 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 FIM Transfers Therapy Code Descriptions/Definitions Functional [place] Measure: 0=Not Assessed/NA 4=Minimal Assistance 1=Total Assistance 5=Supervision or Setup 2=Maximal Assistance 6=Modified [place] 3=Moderate Assistance 7=Complete IndependenceSCALE: Activities may be completed with or without assistive devices. 1-Sezchlrisu-vdijccr completes the activity by him/herself with no assistance from a helper. 5-Set-up or Clean-up Assistance-helper sets up or cleans up; patient completes activity. [place] assists only prior to or following the activity. 4-Supervision or Touching Assistance-helper provides verbal cues and/or touching/steadying and/or contact guard assistance as patient completes activity. Assistance may be provided throughout the activity or intermittently. 3-Partial/Moderate Assistance-helper does LESS THAN HALF the effort. [place] li fts, holds or supports trunk or limbs, but provides less than half the effort. 2-Substantial/Maximal Assistance-helper does MORE THAN HALF the effort. [place] lifts or holds trunk or limbs and provides more than half the effort. 3-Gjbbxbyla-arqmmc does ALL the effort. Patient does none of the effort to complete the activity. Or, the assistance of 2 or more helpers is required for the patient to complete the activity. If activity was not attempted, code reason: 7-Patient Refused. 9-Not Applicable-not attempted and the patient did not perform the activity before the current illness, exacerbation or injury. 10-Not Attempted due to Environmental Limitations-(lack of equipment, weather restraints, etc.). 88-Not Attempted due to Medical Conditions or Safety Concerns. Roll Left to Right (QC): 4 Sit to Lying (QC): 4 Sit to Stand (QC): 3 Chair/Gdv-an-Zkdqq Xfer(QC): 4 Car Transfer (QC): 4 Gait Training Does the Patient Walk?: Yes Distance: 20' Walk 10 feet (QC): 4 Walk 50 ft with 2 Turns(QC): 3 Walk 150 ft (QC): 4 Walking 10ft/uneven surface-QC: 4 Gait Persons Needed: 1 Gait Assistive Device: FWW Wheelchair Training Does the Pt Use a Wheelchair?: No Wheel 50 ft with 2 turns (QC): 9 Wheel 150 ft (QC): 9 Stair Training #of Steps: 0 1 Step (curb) (QC): 9 4 Steps (QC): 9 12 Steps (QC): 9 Balance Picking up an Object (QC): 4 ADL-Treatment Eating (QC): 5 (assist opening container. ) Oral Hygiene (QC): 4 (SBA) Shower/Bathe Self (QC): 4 (SBA, pt able to wash/dry all parts with VCs for sequencing and redirection to task.) Upper Body Dressing (QC): 5 Lower Body Dressing (QC): 3 (Mod A overall.) On/Off Footwear (QC): 3 (Mod A overall.) Toileting Hygiene (QC): 3 (Mod A overall. 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 h/o left hip fracture status post repair at [facility] h/o acute blood loss anemia requiring 2 units of blood at [facility] while inpatient for hip fracture 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 History of TVAR [place] 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 ABIGAIL on biPAP Cochlear implant GERD IBS RLS Plan: PT OT Fall prevention Monitor closely Home meds 04/11/2022: Monitor closely 04/12/2022: Monitor closely Fall risk 04/13/2022: Monitor closely 04/14/2022: Monitor closely 04/15/2022: Monitor for falls (1) Concussion without loss of consciousness DUNG KEYS DO Apr 15, 2022 05:30
[2022-04-15] MEDS: DICYCLOMINE 10 MG (BENTYL) CAP PO SCH ×3 (06:03→16:37)
[2022-04-15] MEDS: VENlafaxine XR 37.5 MG (EFFEXOR XR) CAP PO SCH (06:03)
[2022-04-15] MEDS: inSUlin ASPART (NovoLOG) 1 UNIT/0.01 ML (CHARGE PER UNIT) SC SCH ×4 (06:09→21:49)
[2022-04-15] MEDS: ASCORBIC ACID (VIT C) 500 MG TABLET PO SCH (08:25)
[2022-04-15] MEDS: LORATADINE (CLARITIN) 10 MG TAB PO SCH (08:25)
[2022-04-15] MEDS: ASPIRIN E.C. 81 MG (ECOTRIN) TAB PO SCH (08:25)
[2022-04-15] MEDS: PANTOPRAZOLE 40 MG (PROTONIX) TAB PO SCH ×2 (08:25→21:30)
[2022-04-15 08:36] VITALS: BP 163/70
[2022-04-15] MEDS: DOCUSATE SODIUM 100 MG (COLACE) CAP PO SCH ×3 (08:47→21:49)
[2022-04-15] MEDS: polyethylene glycoL POWDER 17 GM (MIRALAX) PACK PO SCH ×2 (08:47→21:49)
[2022-04-15] MEDS: SENNA W/DOCUSATE (SENOKOT S) TABLET PO SCH ×2 (08:48→21:49)
--- NOTE | 2022-04-15 10:19 | Occupational Ther Daily Note ---
OT Current Status-Daily Note Subjective Pt agreeable to OT Tx. ADL-Treatment Therapy Code Descriptions/Definitions Functional [place] Measure: 0=Not Assessed/NA 4=Minimal Assistance 1=Total Assistance 5=Supervision or Setup 2=Maximal Assistance 6=Modified [place] 3=Moderate Assistance 7=Complete IndependenceSCALE: Activities may be completed with or without assistive devices. 4-Cabavqivfb-ntftqqz completes the activity by him/herself with no assistance from a helper. 5-Set-up or Clean-up Assistance-helper sets up or cleans up; patient completes activity. [place] assists only prior to or following the activity. 4-Supervision or Touching Assistance-helper provides verbal cues and/or touching/steadying and/or contact guard assistance as patient completes activity. Assistance may be provided throughout the activity or intermittently. 3-Partial/Moderate Assistance-helper does LESS THAN HALF the effort. [place] lifts, holds or supports trunk or limbs, but provides less than half the effort. 2-Substantial/Maximal Assistance-helper does MORE THAN HALF the effort. [place] lifts or holds trunk or limbs and provides more than half the effort. 2-Mafmdndds-okndgo does ALL the effort. Patient does none of the effort to complete the activity. Or, the assistance of 2 or more helpers is required for the patient to complete the activity. If activity was not attempted, code reason: 7-Patient Refused. 9-Not Applicable-not attempted and the patient did not perform the activity before the current illness, exacerbation or injury. 10-Not Attempted due to Environmental Limitations-(lack of equipment, weather restraints, etc.). 88-Not Attempted due to Medical Conditions or Safety Concerns. Eating (QC): 5 (set up with opening containers.) Oral Hygiene (QC): 5 Shower/Bathe Self (QC): 4 (supervision) Upper Body Dressing (QC): 5 Lower Body Dressing (QC): 3 (Min A with threading BLEs. Dressing stick utilized as needed.) On/Off Footwear: 3 (Pt able to doff, assist to don. this is pt's PLOF.) Toileting Hygiene (QC): 4 (SBA) Other Treatment Pt in recliner, used FWW to transfer into bathroom and onto toilet. Pt completed toileting, then transferred to NH. Pt completed showering, dressing and grooming tasks as outlined above, then returned to recliner using FWW. SBA with sit to/from stand transfers and mobility using FWW, skilled VCs required for UE placement and positioning. Pt requests snack due to being hungry, snack provided to pt, set up assistance required. Post tx, pt in recliner, call light in reach and all needs met, chair alarm activated and telesitter present. Education OT Patient Education: Correct positioning, Energy conservation, Modified ADL techniques, Progress toward Goal/Update tx plan, Purpose of tx/functional activities, Rehab process Teaching Recipient: Patient Teaching Methods: Discussion Response to Teaching: Verbalize Understanding BIMS CAM BIMS Expression of Ideas and Wants: Without Difficulty Understanding Verbal Content: Usually Understands ([place]) IRF GABRIELA BIMS: IRF GABRIELA BIMS Response (Comments) Value Repitition of Three Words Three 3 Recalls Socks Yes, No Cue Required 2 Recalls Blue Yes, No Cue Required 2 Recalls Bed Yes, No Cue Required 2 Year Correct 3 Month Missed by 6 Days/1 Month 1 Day Correct 1 Total 14 CAM Mental Status Change/Baseline: 0 Inattention: 0 Disorganized thinkin Altered level of consciousness: 0 OT Short Term Goals Short Term Goals Time Frame: Apr 18, 2022 Upper body dressin Lower body dressin OT Fpc Goals Machine Sorter Goals Time Frame: May 02, 2022 Acute change in mental status: 0 Inattention: 0 Disorganized thinkin Altered level of consciousness: 0 Eating (QC): 6 Oral Hygiene (QC): 6 Toileting Hygiene (QC): 6 Shower/Bathe Self (QC): 4 Upper Body Dressing (QC): 6 Lower Body Dressing (QC): 6 On/Off Footwear (QC): 4 Additional Goals: 1-Demonstrate ADL Tasks, 2-Verbalize Understanding, 3- ImproveStrength/Priya 1=Demonstrate adherence to instructed precautions during ADL tasks. 2=Patient will verbalize/demonstrate understanding of assistive d evices/modifications for ADL. 3=Patient will improve strength/tolerance for activity to enable patient to perform ADL's. OT Education/Plan Problem List/Assessment Assessment: Decreased Activ Tolerance, Decreased UE Strength, Impaired Funct Balance, Impaired I ADL's, Impaired Self-Care Skills Discharge Recommendations Plan/Recommendations: Continue POC Treatment Plan/Plan of Care Patient would benefit from OT for education, treatment and training to promote independence in ADL's, mobility, safety and/or upper extremity function for A DL's. Plan of Care: ADL Retraining, Functional Mobility, Group Exercise/Act as Ind, UE Funct Exercise/Act Treatment Duration: May 02, 2022 Frequency: At least 5 of 7 days/Wk (IRF) Estimated Hrs Per Day: 1.5 hours per day Agreement: Yes Rehab Potential: Fair Time Start Time: 09:00 Stop Time: 10:30 DATE: Apr 15, 2022 Total Time Billed (hr/min): 90 Billed Treatment Time 1, ADL 6 CHELSEY FERNANDES OT Apr 15, 2022 10:19
--- NOTE | 2022-04-15 12:04 | Physical Therapy Daily Note ---
PT Daily Note-Current Subjective Pt sitting in recliner upon arrival. Pt doesn't have cochlear implant in so she has to put in before leaving for tx. Pt agrees to PT. Pain Location: No Pain Reported Section J - Health Conditions 1. Rarely or not at all 2. Occasionally 3. Frequently 4. Almost constantly 8. Unable to answer Pain Effect on Sleep: 1 Pain Interference with Therapy: 1 Pain Interference w/Day-to-Day: 1 Mental Status Patient Orientation: Person, Place, Situation Transfers SCALE: Activities may be completed with or without assistive devices. 7-Gavdunyppc-aqxvbrv completes the activity by him/herself with no assistance from a helper. 5-Set-up or Clean-up Assistance-helper sets up or cleans up; patient completes activity. [place] assists only prior to or following the activity. 4-Supervision or Touching Assistance-helper provides verbal cues and/or touching/steadying and/or contact guard assistance as patient completes activity. Assistance may be provided throughout the activity or intermittently. 3-Partial/Moderate Assistance-helper does LESS THAN HALF the effort. [place] lifts, holds or supports trunk or limbs, but provides less than half the effort. 2-Substantial/Maximal Assistance-helper does MORE THAN HALF the effort. [place] lifts or holds trunk or limbs and provides more than half the effort. 5-Zcwgbnfgs-tydgor does ALL the effort. Patient does none of the effort to complete the activity. Or, the assistance of 2 or more helpers is required for the patient to complete the activity. If activity was not attempted, code reason: 7-Patient Refused. 9-Not Applicable-not attempted and the patient did not perform the activity before the current illness, exacerbation or injury. 10-Not Attempted due to Environmental Limitations-(lack of equipment, weather restraints, etc.). 88-Not Attempted due to Medical Conditions or Safety Concerns. Sit to Stand (QC): 4 Toilet Transfer (QC): 4 Weight Bearing Right Lower Extremity: Right Full Weight Bearing Left Lower Extremity: Left Full Weight Bearing Gait Training Does the Patient Walk?: Yes Distance: 150' x2 Walk 10 feet (QC): 4 Walk 50 ft with 2 Turns(QC): 4 Walk 150 ft (QC): 4 Gait Assistive Device: FWW Stair Training Stair Training: Handrails/: 2 handrails #of Steps: 6 1 Step (curb) (QC): 4 4 Steps (QC): 4 Stairs: Pattern: Step to Exercises NuStep Minutes: 10 NuStep Workload: 4 Treatments TF to standing, amb in hallway. Pt attempts steps for community situations (see Goals from PT). After RB, Pt amb in hallway and uses NuStep before RB. Pt returns to room to use BR and rest in recliner. All needs met, call light in hand. Assessment Current Status: Good Progress TF & amb have improved, pt is also able to complete some steps at CGA. PT Snf Goals Snf Goals PT Snf Goals Time Frame: May 10, 2022 Roll Left & Right (QC): 6 Sit to Lying (QC): 6 Lying-Sitting on Side/Bed(QC): 6 Sit to Stand (QC): 6 Chair/Yus-of-Bdnkn Xfer(QC): 6 Toilet Transfer (QC): 6 Car Transfer (QC): 6 Does the Patient Walk: Yes Walk 10 feet (QC): 6 Walk 50ft with 2 Turns (QC): 6 Walk 150 ft (QC): 6 Walking 10ft on Uneven Surface: 6 1 Step (curb) (QC): 9 4 Steps (QC): 9 12 Steps (QC): 9 Picking up an Object (QC): 6 Does the Pt use WC or Scooter?: No Wheel 50 feet with 2 turns (QC: 9 Wheel 150 feet: 9 PT Plan Problem List Problem List: Activity Tolerance Treatment/Plan Treatment Plan: Continue Plan of Care Treatment Plan: Bed Mobility, Education, Functional Activity Priya, Functional Strength, Group Therapy, Gait, Safety, Therapeutic Exercise, Transfers Treatment Duration: May 16, 2022 Frequency: At least 5 of 7 days/Wk (IRF) Estimated Hrs Per Day: 1.5 hours per day Patient and/or Family Agrees t: Yes Safety Risks/Education Patient Education: Steps, Correct Positioning, Safety Issues Teaching Recipient: Patient Teaching Methods: Discussion Response to Teaching: Verbalize Understanding Time Time In: 1100 Time Out: 1200 DATE: Apr 15, 2022 Total Billed Treatment Time: 60 Total Billed Treatment 1, GT x2 (30m), FA (15m) & EX (15m) ERIN MARLEY SENIOR MANUFACTURING ENGINEER Apr 15, 2022 12:04
--- NOTE | 2022-04-15 14:46 | Physical Therapy Rehab Re-Cert ---
PT Re-Certification Form Physical Therapy Treatment Plan: Modify Plan, see comments Bed Mobility, Education, Functional Activity Priya, Functional Strength, Group Therapy, Gait, Safety, Therapeutic Exercise, Transfers Patient has started stair training, goal needs to be set for stairs. By discharge, patient will be able to go up and down 8 steps using 2 handrails with SBA. Treatment Duration: May 10, 2022 Frequency: At least 5 of 7 days/Wk (IRF) Estimated Hrs Per Day: 1.5 hours per day Patient and/or Family Agrees t: Yes Rehab Potential: Fair PT Fpc Goals Fpc Goals PT Structural Design Engineer Goals Time Frame: May 10, 2022 Roll Left & Right (QC): 6 Sit to Lying (QC): 6 Lying-Sitting on Side/Bed(QC): 6 Sit to Stand (QC): 6 Chair/Pqb-zk-Jdiee Xfer(QC): 6 Toilet Transfer (QC): 6 Car Transfer (QC): 6 Does the Patient Walk: Yes Walk 10 feet (QC): 6 Walk 50ft with 2 Turns (QC): 6 Walk 150 ft (QC): 6 Walking 10ft on Uneven Surface: 6 1 Step (curb) (QC): 4 4 Steps (QC): 4 12 Steps (QC): 88 Picking up an Object (QC): 6 Does the Pt use WC or Scooter?: No Wheel 50 feet with 2 turns (QC: 9 Wheel 150 feet: 9 ANNAMARIA GARCIA PT Apr 15, 2022 14:46
--- NOTE | 2022-04-15 16:10 | Physical Therapy Daily Note ---
PT Daily Note-Current Subjective Pt sitting in recliner upon arrival. Pt agrees to PT but asks to start tx w/BR. Pain Location: No Pain Reported Section J - Health Conditions 1. Rarely or not at all 2. Occasionally 3. Frequently 4. Almost constantly 8. Unable to answer Pain Effect on Sleep: 1 Pain Interference with Therapy: 1 Pain Interference w/Day-to-Day: 1 Mental Status Patient Orientation: Person, Place, Situation Transfers SCALE: Activities may be completed with or without assistive devices. 5-Agqwdmurtw-ujwhacs completes the activity by him/herself with no assistance from a helper. 5-Set-up or Clean-up Assistance-helper sets up or cleans up; patient completes activity. [place] assists only prior to or following the activity. 4-Supervision or Touching Assistance-helper provides verbal cues and/or touching/steadying and/or contact guard assistance as patient completes activity. Assistance may be provided throughout the activity or intermittently. 3-Partial/Moderate Assistance-helper does LESS THAN HALF the effort. [place] lifts, holds or supports trunk or limbs, but provides less than half the effort. 2-Substantial/Maximal Assistance-helper does MORE THAN HALF the effort. [place] lifts or holds trunk or limbs and provides more than half the effort. 3-Ssrbufsqt-wjahtz does ALL the effort. Patient does none of the effort to complete the activity. Or, the assistance of 2 or more helpers is required for the patient to complete the activity. If activity was not attempted, code reason: 7-Patient Refused. 9-Not Applicable-not attempted and the patient did not perform the activity before the current illness, exacerbation or injury. 10-Not Attempted due to Environmental Limitations-(lack of equipment, weather restraints, etc.). 88-Not Attempted due to Medical Conditions or Safety Concerns. Sit to Lying (QC): 4 Sit to Stand (QC): 4 Toilet Transfer (QC): 4 Weight Bearing Right Lower Extremity: Right Full Weight Bearing Left Lower Extremity: Left Full Weight Bearing Gait Training Does the Patient Walk?: Yes Distance: 15' x2 Walk 10 feet (QC): 4 Gait Assistive Device: FWW Treatments TF to standing and amb to BR. After toileting and completing pericare, pt returns to room and reports fatigue. SCIENCE AND OPERATIONS OFFICER has pt focus on bed mobility since wants to rest after tx. All needs met, call light in hand. Assessment Current Status: Fair Progress Pt more fatigued in afternoon session. PT Senior Living Goals Senior Living Goals PT Senior Living Goals Time Frame: May 10, 2022 Roll Left & Right (QC): 6 Sit to Lying (QC): 6 Lying-Sitting on Side/Bed(QC): 6 Sit to Stand (QC): 6 Chair/Bao-tr-Nmsgc Xfer(QC): 6 Toilet Transfer (QC): 6 Car Transfer (QC): 6 Does the Patient Walk: Yes Walk 10 feet (QC): 6 Walk 50ft with 2 Turns (QC): 6 Walk 150 ft (QC): 6 Walking 10ft on Uneven Surface: 6 1 Step (curb) (QC): 4 4 Steps (QC): 4 12 Steps (QC): 88 Picking up an Object (QC): 6 Does the Pt use WC or Scooter?: No Wheel 50 feet with 2 turns (QC: 9 Wheel 150 feet: 9 PT Plan Problem List Problem List: Activity Tolerance Treatment/Plan Treatment Plan: Continue Plan of Care Treatment Plan: Bed Mobility, Education, Functional Activity Priya, Functional Strength, Group Therapy, Gait, Safety, Therapeutic Exercise, Transfers Treatment Duration: May 16, 2022 Frequency: At least 5 of 7 days/Wk (IRF) Estimated Hrs Per Day: 1.5 hours per day Patient and/or Family Agrees t: Yes Time Time In: 1430 Time Out: 1500 DATE: Apr 15, 2022 Total Billed Treatment Time: 30 Total Billed Treatment 1, FA (15m) & EX (15m) ERIN MARLEY SCIENCE AND OPERATIONS OFFICER Apr 15, 2022 16:10
[2022-04-15 20:36] VITALS: BP 117/66
[2022-04-15] MEDS: MIRABEGRON 25 MG TAB (MYRBETRIQ) PO SCH (21:29)
[2022-04-15] MEDS: MONTELUKAST 10 MG (SINGULAIR) TAB PO SCH (21:30)
[2022-04-15] MEDS: RIVAROXABAN 20 MG TABLET (XARELTO) PO SCH (21:30)
[2022-04-15] MEDS: MIRTAZAPINE 15 MG (REMERON) TAB PO SCH (21:30)
[2022-04-16] MEDS: inSUlin ASPART (NovoLOG) 1 UNIT/0.01 ML (CHARGE PER UNIT) SC SCH ×4 (06:34→21:05)
[2022-04-16] MEDS: DICYCLOMINE 10 MG (BENTYL) CAP PO SCH ×3 (06:50→17:25)
[2022-04-16] MEDS: VENlafaxine XR 37.5 MG (EFFEXOR XR) CAP PO SCH (06:50)
--- NOTE | 2022-04-16 08:17 | PM&R Progress Note ---
Subjective HPI/CC On Admission Date Seen by Provider: Apr 16, 2022 Time Seen by Provider: 13:30 Subjective/Events-last exam 04/16/2022: Improved status Needs O2 supplement DC home planned for tomorrow Will check labs and CXR tomorrow HGA1C was 6.5 04/15/2022: No major issues Walking well with walker No falls No pain reported 04/14/2022: Patient doing well No pain reported Cam boot in place Hearing aides help her recovery 04/13/2022: Improved status Hearing aides in place No pain reported Walks well 04/12/2022: No major issues Sleeps a lot Uses hearing aides during therapy No pain reported No SHIPMAN 04/11/2022: Patient doing well No pain reported Hearing aides to be brought in No falls Subtle confusion Review of Systems General: Fatigue, Malaise Objective Exam Vital Signs Vital Signs Date Time Temp Pulse Resp B/P (MAP) Pulse Ox O2 Delivery O2 Flow Rate FiO2 04/16/22 21:13 Room Air 04/16/22 19:54 36.9 88 20 161/72 (101) 97 2.00 Capillary Refill : General Appearance: No Apparent Distress, WD/WN, Chronically ill HEENT: PERRL/EOMI, Normal ENT Inspection, Pharynx Normal, Other (very AKHIOK) Neck: Full Range of Motion, Normal Inspection, Non Tender, Supple, Carotid Bruit Respiratory: Chest Non Tender, Lungs Clear, Normal Breath Sounds, No Accessory Muscle Use, No Respiratory Distress Cardiovascular: Regular Rate, Rhythm, No Edema, No Gallop, No JVD, No Murmur, Normal Peripheral Pulses Gastrointestinal: Normal Bowel Sounds, No Organomegaly, No Pulsatile Mass, Non Tender, Soft Back: Normal Inspection, No CVA Tenderness, No Vertebral Tenderness Extremity: Normal Capillary Refill, Normal Inspection, Normal Range of Motion, Non Tender, No Calf Tenderness, No Pedal Edema Neurologic/Psychiatric: Alert, No Motor/Sensory Deficits, promotions associate II-XII Norm as Tested, Abnormal Gait, Depressed Affect, Disoriented, Motor Weakness (generalized) Skin: Normal Color, Warm/Dry Lymphatic: No Adenopathy Results/Procedures Lab Patient resulted labs reviewed. FIM Transfers Therapy Code Descriptions/Definitions Functional [place] Measure: 0=Not Assessed/NA 4=Minimal Assistance 1=Total Assistance 5=Supervision or Setup 2=Maximal Assistance 6=Modified [place] 3=Moderate Assistance 7=Complete IndependenceSCALE: Activities may be completed with or without assistive devices. 1-Ldmvxlebeb-jgvjyus completes the activity by him/herself with no assistance from a helper. 5-Set-up or Clean-up Assistance-helper sets up or cleans up; patient completes activity. [place] assists only prior to or following the activity. 4-Supervision or Touching Assistance-helper provides verbal cues and/or touching/steadying and/or contact guard assistance as patient completes activity. Assistance may be provided throughout the activity or intermittently. 3-Partial/Moderate Assistance-helper does LESS THAN HALF the effort. [place] lifts, holds or supports trunk or limbs, but provides less than half the effort. 2-Substantial/Maximal Assistance-helper does MORE THAN HALF the effort. [place] lifts or holds trunk or limbs and provides more than half the effort. 1-Hpdfjohke-aimjwp does ALL the effort. Patient does none of the effort to complete the activity. Or, the assistance of 2 or more helpers is required for the patient to complete the activity. If activity was not attempted, code reason: 7-Patient Refused. 9-Not Applicable-not attempted and the patient did not perform the activity before the current illness, exacerbation or injury. 10-Not Attempted due to Environmental Limitations-(lack of equipment, weather restraints, etc.). 88-Not Attempted due to Medical Conditions or Safety Concerns. Roll Left to Right (QC): 4 Sit to Lying (QC): 4 Sit to Stand (QC): 4 Chair/Stp-py-Bmcqd Xfer(QC): 4 Car Transfer (QC): 4 Gait Training Does the Patient Walk?: Yes Distance: 15' x2 Walk 10 feet (QC): 4 Walk 50 ft with 2 Turns(QC): 4 Walk 150 ft (QC): 4 Walking 10ft/uneven surface-QC: 4 Gait Persons Needed: 1 Gait Assistive Device: FWW Wheelchair Training Does the Pt Use a Wheelchair?: No Wheel 50 ft with 2 turns (QC): 9 Wheel 150 ft (QC): 9 Stair Training Stair Training: Handrails/: 2 handrails #of Steps: 6 1 Step (curb) (QC): 4 4 Steps (QC): 4 12 Steps (QC): 9 Stairs: Pattern: Step to Balance Picking up an Object (QC): 4 ADL-Treatment Eating (QC): 5 (set up with opening containers.) Oral Hygiene (QC): 5 Shower/Bathe Self (QC): 4 (supervision) Upper Body Dressing (QC): 5 Lower Body Dressing (QC): 3 (Min A with threading BLEs. Dressing stick utilized as needed.) On/Off Footwear (QC): 3 (Pt able to doff, assist to don. 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
[2022-04-16 08:19] VITALS: BP 158/83
[2022-04-16] MEDS: LORATADINE (CLARITIN) 10 MG TAB PO SCH (08:35)
[2022-04-16] MEDS: ASCORBIC ACID (VIT C) 500 MG TABLET PO SCH (08:35)
[2022-04-16] MEDS: ASPIRIN E.C. 81 MG (ECOTRIN) TAB PO SCH (08:35)
[2022-04-16] MEDS: DOCUSATE SODIUM 100 MG (COLACE) CAP PO SCH ×3 (08:35→21:04)
[2022-04-16] MEDS: polyethylene glycoL POWDER 17 GM (MIRALAX) PACK PO SCH ×2 (08:36→21:10)
[2022-04-16] MEDS: SENNA W/DOCUSATE (SENOKOT S) TABLET PO SCH ×2 (08:43→21:04)
[2022-04-16] MEDS: PANTOPRAZOLE 40 MG (PROTONIX) TAB PO SCH ×2 (08:43→21:04)
--- NOTE | 2022-04-16 09:25 | Occupational Ther Daily Note ---
OT Current Status-Daily Note Subjective Pt in recliner, agreeable to OT Tx. ADL-Treatment Therapy Code Descriptions/Definitions Functional [place] Measure: 0=Not Assessed/NA 4=Minimal Assistance 1=Total Assistance 5=Supervision or Setup 2=Maximal Assistance 6=Modified [place] 3=Moderate Assistance 7=Complete IndependenceSCALE: Activities may be completed with or without assistive devices. 8-Eapokyukvj-njrfxtn completes the activity by him/herself with no assistance from a helper. 5-Set-up or Clean-up Assistance-helper sets up or cleans up; patient completes activity. [place] assists only prior to or following the activity. 4-Supervision or Touching Assistance-helper provides verbal cues and/or touching/steadying and/or contact guard assistance as patient completes activity. Assistance may be provided throughout the activity or intermittently. 3-Partial/Moderate Assistance-helper does LESS THAN HALF the effort. [place] lifts, holds or supports trunk or limbs, but provides less than half the effort. 2-Substantial/Maximal Assistance-helper does MORE THAN HALF the effort. [place] lifts or holds trunk or limbs and provides more than half the effort. 8-Mjgumwrou-xhwfxo does ALL the effort. Patient does none of the effort to compl ete the activity. Or, the assistance of 2 or more helpers is required for the patient to complete the activity. If activity was not attempted, code reason: 7-Patient Refused. 9-Not Applicable-not attempted and the patient did not perform the activity before the current illness, exacerbation or injury. 10-Not Attempted due to Environmental Limitations-(lack of equipment, weather restraints, etc.). 88-Not Attempted due to Medical Conditions or Safety Concerns. Toileting Hygiene (QC): 4 (SBA) Toilet Transfer (QC): 4 (SBA) Other Treatment Pt in recliner, agreeable to OT Tx. Pt used FWW to transfer into bathroom and onto toilet, SBA. Pt completed toileting, then hand hygiene at sink, SBA. Pt used FWW to perform functional mobility to therapy gym, SBA. OT tx focused on increasing BUE strength and activity tolerance. Pt completed arm bike, x15 mins, 20 Watt resistance, 1 rest break. Pt then completed UE reaching task, placing 1" pegs into foam pegboard, Ted. Pt able to complete x80 pegs. Pt used FWW to return to her room, VCs for direction. Post tx, pt in recliner, call light in reach and all needs met. chair alarm activated and telesitter present. Education OT Patient Education: Correct positioning, Energy conservation, Modified ADL techniques, Progress toward Goal/Update tx plan, Purpose of tx/functional activities, Rehab process Teaching Recipient: Patient Teaching Methods: Discussion Response to Teaching: Verbalize Understanding OT Short Term Goals Short Term Goals Time Frame: Apr 18, 2022 Upper body dressin Lower body dressin OT Longterm Goals Longterm Goals Time Frame: May 02, 2022 Acute change in mental status: 0 Inattention: 0 Disorganized thinkin Altered level of consciousness: 0 Eating (QC): 6 Oral Hygiene (QC): 6 Toileting Hygiene (QC): 6 Shower/Bathe Self (QC): 4 Upper Body Dressing (QC): 6 Lower Body Dressing (QC): 6 On/Off Footwear (QC): 4 Additional Goals: 1-Demonstrate ADL Tasks, 2-Verbalize Understanding, 3- ImproveStrength/Priya 1=Demonstrate adherence to instructed precautions during ADL tasks. 2=Patient will verbalize/demonstrate understanding of assistive devices/modifications for ADL. 3=Patient will improve strength/tolerance for activity to enable patient to perform ADL's. OT Education/Plan Problem List/Assessment Assessment: Decreased Activ Tolerance, Decreased UE Strength, Impaired Funct Balance, Impaired I ADL's, Impaired Self-Care Skills Discharge Recommendations Plan/Recommendations: Continue POC Treatment Plan/Plan of Care Patient would benefit from OT for education, treatment and training to promote independence in ADL's, mobility, safety and/or upper extremity function for ADL's. Plan of Care: ADL Retraining, Functional Mobility, Group Exercise/Act as Ind, UE Funct Exercise/Act Treatment Duration: May 02, 2022 Frequency: At least 5 of 7 days/Wk (IRF) Estimated Hrs Per Day: 1.5 hours per day Agreement: Yes Rehab Potential: Fair Time Start Time: 09:00 Stop Time: 10:00 DATE: Apr 16, 2022 Total Time Billed (hr/min): 60 Billed Treatment Time 1, ADL (15'), EX (15'), FA 2 (30') CHELSEY FERNANDES OT Apr 16, 2022 09:25
--- NOTE | 2022-04-16 11:04 | Physical Therapy Daily Note ---
PT Daily Note-Current Subjective Pt. agrees to Rx, no c/o pain, feels stronger , wants to know when she can drive. This ACID TENDER discouraging this Pain Location: No Pain Reported Section J - Health Conditions 1. Rarely or not at all 2. Occasionally 3. Frequently 4. Almost constantly 8. Unable to answer Pain Effect on Sleep: 1 Pain Interference with Therapy: 1 Pain Interference w/Day-to-Day: 1 Mental Status Patient Orientation: Normal For Age Transfers SCALE: Activities may be completed with or without assistive devices. 3-Oxfontbymp-wmnqtif completes the activity by him/herself with no assistance from a helper. 5-Set-up or Clean-up Assistance-helper sets up or cleans up; patient completes activity. [place] assists only prior to or following the activity. 4-Supervision or Touching Assistance-helper provides verbal cues and/or touching/steadying and/or contact guard assistance as patient completes activity. Assistance may be provided throughout the activity or intermittently. 3-Partial/Moderate Assistance-helper does LESS THAN HALF the effort. [place] lifts, holds or supports trunk or limbs, but provides less than half the effort. 2-Substantial/Maximal Assistance-helper does MORE THAN HALF the effort. [place] lifts or holds trunk or limbs and provides more than half the effort. 2-Jtvqgnjjf-uboyhz does ALL the effort. Patient does none of the effort to complete the activity. Or, the assistance of 2 or more helpers is required for the patient to complete the activity. If activity was not attempted, code reason: 7-Patient Refused. 9-Not Applicable-not attempted and the patient did not perform the activity before the current illness, exacerbation or injury. 10-Not Attempted due to Environmental Limitations-(lack of equipment, weather restraints, etc.). 88-Not Attempted due to Medical Conditions or Safety Concerns. Roll Left & Right (QC): 6 Sit to Lying (QC): 6 Lying to Sitting/Side of Bed(Q: 6 Sit to Stand (QC): 5 Chair/Ubv-yl-Hqgdp Xfer(QC): 5 Toilet Transfer (QC): 6 Weight Bearing Right Lower Extremity: Right Full Weight Bearing Left Lower Extremity: Left Full Weight Bearing Gait Training Does the Patient Walk?: Yes Walk 10 feet (QC): 4 Walk 50 ft with 2 Turns(QC): 4 Walk 150 ft (QC): 4 Walking 10ft/uneven surface-QC: 4 Gait Persons Needed: 1 Gait Assistive Device: FWW needs some direction as to where she is going, where to turn etc, pt. needs instructed to align herself in safe space in FWW etc Stair Training Stair Training: Handrails/: 2 handrails #of Steps: 4 1 Step (curb) (QC): 4 4 Steps (QC): 4 12 Steps (QC): 88 Stairs: Pattern: Step to requires CGA to min assist and constant stp by stp for sequence of hands and feet/ steps. pt. c/o she is fatigued and a "little dizzy " after 4 steps . Exercises Supine Ex: Bridging, Ankle pumps, Rolling, Heel Slides, Straight leg raise, Hip abd/add Supine Reps: 12 NuStep Minutes: 8 NuStep Workload: 2 Treatments TRFs, gait, steps, QC, toileting Assessment Current Status: Good Progress PT Shelter Goals Shelter Goals PT Shelter Goals Time Frame: May 10, 2022 Roll Left & Right (QC): 6 Sit to Lying (QC): 6 Lying-Sitting on Side/Bed(QC): 6 Sit to Stand (QC): 6 Chair/Qhv-yf-Mvnbo Xfer(QC): 6 Toilet Transfer (QC): 6 Car Transfer (QC): 6 Does the Patient Walk: Yes Walk 10 feet (QC): 6 Walk 50ft with 2 Turns (QC): 6 Walk 150 ft (QC): 6 Walking 10ft on Uneven Surface: 6 1 Step (curb) (QC): 4 4 Steps (QC): 4 12 Steps (QC): 88 Picking up an Object (QC): 6 Does the Pt use WC or Scooter?: No Wheel 50 feet with 2 turns (QC: 9 Wheel 150 feet: 9 PT Plan Treatment/Plan Treatment Plan: Continue Plan of Care Treatment Plan: Bed Mobility, Education, Functional Activity Priya, Functional Strength, Group Therapy, Gait, Safety, Therapeutic Exercise, Transfers Treatment Duration: May 16, 2022 Frequency: At least 5 of 7 days/Wk (IRF) Estimated Hrs Per Day: 1.5 hours per day Patient and/or Family Agrees t: Yes Safety Risks/Education Patient Education: Gait Training, Transfer Techniques, Steps, Correct Positioning, Disease Process, Safety Issues Teaching Recipient: Patient Teaching Methods: Demonstration, Discussion Response to Teaching: Verbalize Understanding, Return Demonstration, Reinforcement Needed Time Time In: 1030 Time Out: 1100 DATE: Apr 16, 2022 Total Billed Treatment Time: 60 Total Billed Treatment 1,GT16m,FA28m,EX16m VERONICA COSTA PTA Apr 16, 2022 11:04
--- NOTE | 2022-04-16 14:50 | Physical Therapy Daily Note ---
PT Daily Note-Current Subjective Pt. agrees to Rx, approx 35 mins in to Rx pt. c/o SOB on room air ,sats at 87%, 86%, 88% . Nursing consulted, O2 reinstated at 2L with sats qickly recovering to 97% Pain Location: No Pain Reported Section J - Health Conditions 1. Rarely or not at all 2. Occasionally 3. Frequently 4. Almost constantly 8. Unable to answer Pain Effect on Sleep: 1 Pain Interference with Therapy: 1 Pain Interference w/Day-to-Day: 1 Mental Status Patient Orientation: Person, Place Attachments: Oxygen (2L) Transfers SCALE: Activities may be completed with or without assistive devices. 9-Dcsjjerpdu-zwptzhm completes the activity by him/herself with no assistance from a helper. 5-Set-up or Clean-up Assistance-helper sets up or cleans up; patient completes activity. [place] assists only prior to or following the activity. 4-Supervision or Touching Assistance-helper provides verbal cues and/or touching/steadying and/or contact guard assistance as patient completes activity. Assistance may be provided throughout the activity or intermittently. 3-Partial/Moderate Assistance-helper does LESS THAN HALF the effort. [place] lifts, holds or supports trunk or limbs, but provides less than half the effort. 2-Substantial/Maximal Assistance-helper does MORE THAN HALF the effort. [place] lifts or holds trunk or limbs and provides more than half the effort. 6-Sdaugbela-ttrkiu does ALL the effort. Patient does none of the effort to complete the activity. Or, the assistance of 2 or more helpers is required for the patient to complete the activity. If activity was not attempted, code reason: 7-Patient Refused. 9-Not Applicable-not attempted and the patient did not perform the activity before the current illness, exacerbation or injury. 10-Not Attempted due to Environmental Limitations-(lack of equipment, weather restraints, etc.). 88-Not Attempted due to Medical Conditions or Safety Concerns. Sit to Stand (QC): 6 Chair/Zne-re-Bwecc Xfer(QC): 4 Toilet Transfer (QC): 6 Car Transfer (QC): 4 pt. needs instruction for safe car TRF, pts approach to seat needed cues for sa fety both getting in and out of vehicle Weight Bearing Right Lower Extremity: Right Full Weight Bearing Left Lower Extremity: Left Full Weight Bearing Gait Training Does the Patient Walk?: Yes Walk 150 ft (QC): 4 Gait Persons Needed: 1 Gait Assistive Device: FWW CGA to SBA and guidance to room and other destinations Balance Picking up an Object (QC): 6 (manager of financial planning use) Exercises Seated Therapy Exercises: Ankle pumps, Sit to stand, Long arc quads, Hip flexion, Hip abd/add Seated Reps: 12 Treatments gait, TRFs, written illustrated HEP was distributed and reviewed with pt. who demonstrates understanding of HEP. seated ex, toileting, Assessment Current Status: Good Progress PT Explosive Operator Goals Explosive Operator Goals PT Explosive Operator Goals Time Frame: May 10, 2022 Roll Left & Right (QC): 6 Sit to Lying (QC): 6 Lying-Sitting on Side/Bed(QC): 6 Sit to Stand (QC): 6 Chair/Ian-wb-Bmjbr Xfer(QC): 6 Toilet Transfer (QC): 6 Car Transfer (QC): 6 Does the Patient Walk: Yes Walk 10 feet (QC): 6 Walk 50ft with 2 Turns (QC): 6 Walk 150 ft (QC): 6 Walking 10ft on Uneven Surface: 6 1 Step (curb) (QC): 4 4 Steps (QC): 4 12 Steps (QC): 88 Picking up an Object (QC): 6 Does the Pt use WC or Scooter?: No Wheel 50 feet with 2 turns (QC: 9 Wheel 150 feet: 9 PT Plan Treatment/Plan Treatment Plan: Continue Plan of Care Treatment Plan: Bed Mobility, Education, Functional Activity Priya, Functional Strength, Group Therapy, Gait, Safety, Therapeutic Exercise, Transfers Treatment Duration: May 16, 2022 Frequency: At least 5 of 7 days/Wk (IRF) Estimated Hrs Per Day: 1.5 hours per day Patient and/or Family Agrees t: Yes Safety Risks/Education Patient Education: Gait Training, Transfer Techniques, Correct Positioning, Disease Process, Safety Issues Teaching Recipient: Patient Teaching Methods: Demonstration, Discussion Response to Teaching: Verbalize Understanding, Return Demonstration, Reinforcement Needed Time Time In: 1340 Time Out: 1440 DATE: Apr 16, 2022 Total Billed Treatment Time: 60 Total Billed Treatment 1,GT30m,FA20m,EX10m VERONICA COSTA PTA Apr 16, 2022 14:50
[2022-04-16 19:54] VITALS: BP 161/72
[2022-04-16] MEDS ORDERED: MONT-40 PO (20:17)
--- NOTE | 2022-04-16 20:18 | D/C HH Face to Face Order ---
D/C Face to Face Orders Reconcile Patient Problems Problems Reviewed?: Yes Instructions for Patient Via [facility], Patient Instructions/FollowUp: Dr Mcintosh in 2 weeks Physician to follow Patient: Dayna Discharge Diet for Home: No Restrictions Patient Problems: Debility Falls Patient Data-Allergies,Ht & Wt Patient Allergies: Coded Allergies: No Known Drug Allergies (Unverified , 02/04/17) Height (Feet): 5 Height (Inches): 3.00 Weight (Pounds): 174 Weight (Ounces): 12.8 Home Health Need/Face to Face Date of Face to Face: Apr 16, 2022 Clinical Findings: Generalized weakness and fatigue, Instability, Muscle weakness I have seen Pt [id number]: Yes Discharged To: Home Diagnosis/Conditions: Debility Patient is Homebound due to: CognItive deficits, Muscle weakness Homebound Status Due to the above stated illness, injury or surgical procedure (medical condition or diagnosis) and associated clinical findings, the patient is homebound because of his/her inability to leave home except with aid of a supportive device and/or person AND leaving the home requires a considerable and taxing effort or is medically contraindicated. Pt req the following assistanc: Walker Home Health Nursing Orders Home Health Services Order: Souvenir Assembler-Evaluate & Treat, Physical Therapy-Evaluate & Treat Certify Stmt I certify that this patient is under my care and that I, a nurse practitioner or a physician; a certified ophthalmic surgical assistant working with me, had a face to face encounter that - meets the physician face to face encounter requirements with this patient as dated. DUNG MCINTOSH DO Apr 16, 2022 20:18
[2022-04-16] MEDS: RIVAROXABAN 20 MG TABLET (XARELTO) PO SCH (21:04)
[2022-04-16] MEDS: MIRABEGRON 25 MG TAB (MYRBETRIQ) PO SCH (21:04)
[2022-04-16] MEDS: MIRTAZAPINE 15 MG (REMERON) TAB PO SCH (21:04)
[2022-04-16] MEDS: MONTELUKAST 10 MG (SINGULAIR) TAB PO SCH (21:04)
--- NOTE | 2022-04-17 05:00 | Discharge Summary ---
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 h/o left hip fracture status post repair at [facility] h/o acute blood loss anemia requiring 2 units of blood at [facility] while inpatient for hip fracture 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 History of TVAR [place] 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 ABIGAIL on biPAP Cochlear implant GERD IBS RLS DM HGA1C 6.5 Plan: PT OT Fall prevention Monitor closely Home meds 04/11/2022: Monitor closely 04/12/2022: Monitor closely Fall risk 04/13/2022: Monitor closely 04/14/2022: Monitor closely 04/15/2022: Monitor for falls 04/16/2022: O2 at home ordered Check labs in am (1) Concussion without loss of consciousness Discharge Summary Discharge Physical Examination Allergies: Coded Allergies: No Known Drug Allergies (Unverified , 02/04/17) Vitals & I&Os Vital Signs Date Time Temp Pulse Resp B/P (MAP) Pulse Ox O2 Delivery O2 Flow Rate FiO2 04/17/22 13:00 36.2 88 20 137/78 96 Nasal Cannula 2.00 General Appearance: Alert, Oriented X3 (O ~ 2), Cooperative Respiratory: Clear to Auscultation Neuro: Normal Gait, Normal Speech, Strength at 5/5 X4 Ext Psych/Mental Status: Mental Status NL Hospital Course Was the Problem List Reviewed?: Yes Standard course after she was admitted following a fall and placed in observation on . Elevated troponin prompted Cardiology but no significant concern for CAD so she was placed on ASA and monitored closely. Overall she did well and was ready for DC back to [place] with PT OT and she was DC. Labs (last 24 hrs) Laboratory Tests 04/10/22 20:05: Glucometer 124H 04/11/22 05:40: White Blood Count 3.8L, Red Blood Count 3.93, Hemoglobin 11.5, Hematocrit 37, Mean Corpuscular Volume 94, Mean Corpuscular Hemoglobin 29, Mean Corpuscular Hemoglobin Concent 31L, Red Cell Distribution Width 15.7H, Platelet Count 139, Mean Platelet Volume 10.0, Immature Granulocyte % (Auto) 1, Neutrophils (%) (Auto) 50, Lymphocytes (%) (Auto) 34, Monocytes (%) (Auto) 12, Eosinophils (%) (Auto) 2, Basophils (%) (Auto) 1, Neutrophils # (Auto) 1.9, Lymphocytes # (Auto) 1.3, Monocytes # (Auto) 0.5, Eosinophils # (Auto) 0.1, Basophils # (Auto) 0.0, Immature Granulocyte # (Auto) 0.0, Sodium Level 143, Potassium Level 3.9, Ch loride Level 108H, Carbon Dioxide Level 25, Anion Gap 10, Blood Urea Nitrogen 12, Creatinine 0.80, Estimat Glomerular Filtration Rate 73, BUN/Creatinine Ratio 15, Glucose Level 124H, Calcium Level 8.7, Corrected Calcium 9.2, Total Bilirubin 0.4, Aspartate Amino Transf (AST/SGOT) 20, Alanine Aminotransferase (ALT/SGPT) 24, Alkaline Phosphatase 147H, Total Protein 6.4, Albumin 3.4 04/11/22 15:12: Glucometer 151H 04/11/22 20:04: Glucometer 137H 04/12/22 06:39: Glucometer 113H 04/12/22 10:45: Glucometer 120H 04/12/22 15:29: Glucometer 90 04/12/22 20:27: Glucometer 145H 04/13/22 06:37: Glucometer 99 04/13/22 10:58: Glucometer 135H 04/13/22 15:16: Glucometer 111H 04/13/22 20:03: Glucometer 118H 04/14/22 06:20: White Blood Count 5.7, Red Blood Count 4.05, Hemoglobin 12.0, Hematocrit 38, Mean Corpuscular Volume 94, Mean Corpuscular Hemoglobin 30, Mean Corpuscular Hemoglobin Concent 32, Red Cell Distribution Width 15.6H, Platelet Count 177, Mean Platelet Volume 9.7, Immature Granulocyte % (Auto) 1, Neutrophils (%) (Auto ) 46, Lymphocytes (%) (Auto) 43, Monocytes (%) (Auto) 9, Eosinophils (%) (Auto) 1, Basophils (%) (Auto) 0, Neutrophils # (Auto) 2.7, Lymphocytes # (Auto) 2.5, Monocytes # (Auto) 0.5, Eosinophils # (Auto) 0.1, Basophils # (Auto) 0.0, Immature Granulocyte # (Auto) 0.1, Sodium Level 142, Potassium Level 3.7, Chloride Level 105, Carbon Dioxide Level 25, Anion Gap 12, Blood Urea Nitrogen 18, Creatinine 0.84, Estimat Glomerular Filtration Rate 68, BUN/Creatinine Ratio 21, Glucose Level 111H, Calcium Level 8.9, Corrected Calcium 9.1, Total Bilirubin 0.4, Aspartate Amino Transf (AST/SGOT) 16, Alanine Aminotransferase (A LT/SGPT) 21, Alkaline Phosphatase 154H, Total Protein 6.9, Albumin 3.7 04/14/22 11:07: Glucometer 186H 04/14/22 15:08: Glucometer 131H 04/14/22 20:14: Glucometer 215H 04/15/22 05:49: Glucometer 94 04/15/22 11:00: Glucometer 105 04/15/22 15:53: Glucometer 148H 04/15/22 20:32: Glucometer 122H 04/16/22 05:50: Glucometer 77 04/16/22 11:14: Glucometer 134H 04/16/22 15:56: Glucometer 131H 04/16/22 20:29: Glucometer 183H 04/17/22 04:55: White Blood Count 5.8, Red Blood Count 3.69L, Hemoglobin 10.9L, Hematocrit 34L, Mean Corpuscular Volume 93, Mean Corpuscular Hemoglobin 30, Mean Corpuscular Hemoglobin Concent 32, Red Cell Distribution Width 15.9H, Platelet Count 163, Mean Platelet Volume 9.8, Immature Granulocyte % (Auto) 1, Neutrophils (%) (Auto) 49, Lymphocytes (%) (Auto) 40, Monocytes (%) (Auto) 10, Eosinophils (%) (Auto) 1, Basophils (%) (Auto) 1, Neutrophils # (Auto) 2.8, Lymphocytes # (Auto) 2.3, Monocytes # (Auto) 0.6, Eosinophils # (Auto) 0.1, Basophils # (Auto) 0.0, Immature Granulocyte # (Auto) 0.0, Sodium Level 143, Potassium Level 4.2, Chloride Level 107, Carbon Dioxide Level 26, Anion Gap 10, Blood Urea Nitrogen 16, Creatinine 0.75, Estimat Glomerular Filtration Rate 78, BUN/Creatinine Ratio 21, Glucose Level 112H, Calcium Level 9.0, Corrected Calcium 9.5, Total Bilirubin 0.5, Aspartate Amino Transf (AST/SGOT) 10, Alanine Aminotransferase (ALT/SGPT) 15, Alkaline Phosphatase 131, B-Type Natriuretic Peptide 50.5, Total Protein 6.2L, Albumin 3.4 Pending Labs Laboratory Tests 04/10/22 20:05: Glucometer 124 04/11/22 05:40: White Blood Count 3.8, Red Blood Count 3.93, Hemoglobin 11.5, Hematocrit 37, Mean Corpuscular Volume 94, Mean Corpuscular Hemoglobin 29, Mean Corpuscular Hemoglobin Concent 31, Red Cell Distribution Width 15.7, Platelet Count 139, Mean Platelet Volume 10.0, Immature Granulocyte % (Auto) 1, Neutrophils (%) (Auto) 50, Lymphocytes (%) (Auto) 34, Monocytes (%) (Auto) 12, Eosinophils (%) (Auto) 2, Basophils (%) (Auto) 1, Neutrophils # (Auto) 1.9, Lymphocytes # (Auto) 1.3, Monocytes # (Auto) 0.5, Eosinophils # (Auto) 0.1, Basophils # (Auto) 0.0, Immature Granulocyte # (Auto) 0.0, Sodium Level 143, Potassium Level 3.9, Chloride Level 108, Carbon Dioxide Level 25, Anion Gap 10, Blood Urea Nitrogen 12, Creatinine 0.80, Estimat Glomerular Filtration Rate 73, BUN/Creatinine Ratio 15, Glucose Level 124, Calcium Level 8.7, Corrected Calcium 9.2, Total Bilirubin 0.4, Aspartate Amino Transf (AST/SGOT) 20, Alanine Aminotransferase (ALT/SGPT) 24, Alkaline Phosphatase 147, Total Protein 6.4, Albumin 3.4 04/11/22 15:12: Glucometer 151 04/11/22 20:04: Glucometer 137 04/12/22 06:39: Glucometer 113 04/12/22 10:45: Glucometer 120 04/12/22 15:29: Glucometer 90 04/12/22 20:27: Glucometer 145 04/13/22 06:37: Glucometer 99 04/13/22 10:58: Glucometer 135 04/13/22 15:16: Glucometer 111 04/13/22 20:03: Glucometer 118 04/14/22 06:20: White Blood Count 5.7, Red Blood Count 4.05, Hemoglobin 12.0, Hematocrit 38, Mean Corpuscular Volume 94, Mean Corpuscular Hemoglobin 30, Mean Corpuscular Hemoglobin Concent 32, Red Cell Distribution Width 15.6, Platelet Count 177, Mean Platelet Volume 9.7, Immature Granulocyte % (Auto) 1, Neutrophils (%) (Auto) 46, Lymphocytes (%) (Auto) 43, Monocytes (%) (Auto) 9, Eosinophils (%) (Auto) 1, Basophils (%) (Auto) 0, Neutrophils # (Auto) 2.7, Lymphocytes # (Auto) 2.5, Monocytes # (Auto) 0.5, Eosinophils # (Auto) 0.1, Basophils # (Auto) 0.0, Immature Granulocyte # (Auto) 0.1, Sodium Level 142, Potassium Level 3.7, Chloride Level 105, Carbon Dioxide Level 25, Anion Gap 12, Blood Urea Nitrogen 18, Creatinine 0.84, Estimat Glomerular Filtration Rate 68, BUN/Creatinine Ratio 21, Glucose Level 111, Calcium Level 8.9, Corrected Calcium 9.1, Total Bilirubin 0.4, Aspartate Amino Transf (AST/SGOT) 16, Alanine Aminotransferase (ALT/SGPT) 21, Alkaline Phosphatase 154, Total Protein 6.9, Albumin 3.7 04/14/22 11:07: Glucometer 186 04/14/22 15:08: Glucometer 131 04/14/22 20:14: Glucometer 215 04/15/22 05:49: Glucometer 94 04/15/22 11:00: Glucometer 105 04/15/22 15:53: Glucometer 148 04/15/22 20:32: Glucometer 122 04/16/22 05:50: Glucometer 77 04/16/22 11:14: Glucometer 134 04/16/22 15:56: Glucometer 131 04/16/22 20:29: Glucometer 183 04/17/22 04:55: White Blood Count 5.8, Red Blood Count 3.69, Hemoglobin 10.9, Hematocrit 34, Mean Corpuscular Volume 93, Mean Corpuscular Hemoglobin 30, Mean Corpuscular He moglobin Concent 32, Red Cell Distribution Width 15.9, Platelet Count 163, Mean Platelet Volume 9.8, Immature Granulocyte % (Auto) 1, Neutrophils (%) (Auto) 49, Lymphocytes (%) (Auto) 40, Monocytes (%) (Auto) 10, Eosinophils (%) (Auto) 1, Basophils (%) (Auto) 1, Neutrophils # (Auto) 2.8, Lymphocytes # (Auto) 2.3, Monocytes # (Auto) 0.6, Eosinophils # (Auto) 0.1, Basophils # (Auto) 0.0, Immature Granulocyte # (Auto) 0.0, Sodium Level 143, Potassium Level 4.2, Chloride Level 107, Carbon Dioxide Level 26, Anion Gap 10, Blood Urea Nitrogen 16, Creatinine 0.75, Estimat Glomerular Filtration Rate 78, BUN/Creatinine Ratio 21, Glucose Level 112, Calcium Level 9.0, Corrected Calcium 9.5, Total Bilirubin 0.5, Aspartate Amino Transf (AST/SGOT) 10, Alanine Aminotransferase (ALT/SGPT) 15, Alkaline Phosphatase 131, B-Type Natriuretic Peptide 50.5, Total Protein 6.2, Albumin 3.4 Discharge Home Medications: Active Scripts Active Montelukast Sodium 10 Mg Tablet 10 Mg PO HS Lipitor (Atorvastatin Calcium) 20 Mg Tablet 20 Mg PO DAILY Aspirin EC (Aspirin) 81 Mg Tablet.dr 81 Mg PO DAILY Reported Mirtazapine 7.5 Mg Tablet 7.5 Mg PO HS Xarelto Tablet (Rivaroxaban) 20 Mg Tablet 20 Mg PO HS Myrbetriq (Mirabegron) 50 Mg Tab.er.24h 50 Mg PO HS Miralax (Polyethylene Glycol 3350) 17 Gram Powd.pack 17 Gm PO DAILY PRN Tums Ultra (Calcium Carbonate) 400 Mg Calcium (1000 Mg) Tab.chew 1,000 Mg PO Q6H PRN Senna (Sennosides) 8.6 Mg Tablet 8.6 Mg PO BID PRN Docusate Sodium 100 Mg Capsule 100 Mg PO BID PRN Tramadol HCl 50 Mg Tablet 50 Mg PO TID PRN Gas-X (Simethicone) 125 Mg Capsule 125-250 Mg PO BID PRN Tylenol Extra Strength (Acetaminophen) 500 Mg Tablet 500-1,000 Mg PO Q6H PRN Denta 5000 Plus (Sodium Fluoride) 1.1 % Sodium Fluoride Cream..g. 1 Ea DT UD Vitamin C (Ascorbic Acid) 1,000 Mg Tablet 1,000 Mg PO DAILY Loratadine 10 Mg Tablet 10 Mg PO DAILY Docusate Sodium 100 Mg Capsule 100 Mg PO DAILY Venlafaxine HCl ER (Venlafaxine HCl) 37.5 Mg Tab.er.24 112.5 Mg PO DAILY TAKES 3 (37.5MG) TABS Dicyclomine HCl 10 Mg Capsule 10 Mg PO TIDAC Pantoprazole Sodium 40 Mg Tablet.dr 40 Mg PO BID Instructions to patient/family Please see electronic discharge instructions given to patient. Diagnosis/Problems Diagnosis/Problems (1) Concussion without loss of consciousness DUNG KEYS DO Apr 17, 2022 05:00
[2022-04-17 05:03] LABS: BASOPHILS % (AUTO) 1 % (0-10); EOSINOPHILS # (AUTO) 0.1 10^3/uL (0.0-0.3); EOSINOPHILS % (AUTO) 1 % (0-10); HEMATOCRIT 34 % (35-52); HEMOGLOBIN 10.9 g/dL (11.5-16.0); LYMPHOCYTES # (AUTO) 2.3 10^3/uL (1.0-4.0); LYMPHOCYTES % (AUTO) 40 % (12-44); MEAN CORPUSCULAR HEMOGLOBIN 30 pg (25-34); MEAN CORPUSCULAR HGB CONC 32 g/dL (32-36); MEAN CORPUSCULAR VOLUME 93 fL (80-99); MEAN PLATELET VOLUME 9.8 fL (9.0-12.2); MONOCYTES # (AUTO) 0.6 10^3/uL (0.0-1.0); MONOCYTES % (AUTO) 10 % (0-12); NEUTROPHILS # (AUTO) 2.8 10^3/uL (1.8-7.8); NEUTROPHILS % (AUTO) 49 % (42-75); PLATELET COUNT 163 10^3/uL (130-400); WHITE BLOOD COUNT 5.8 10^3/uL (4.3-11.0)
[2022-04-17 05:17] LABS: ALBUMIN 3.4 GM/DL (3.2-4.5); POTASSIUM 4.2 MMOL/L (3.6-5.0)
[2022-04-17 05:20] LABS: TOTAL PROTEIN 6.2 GM/DL (6.4-8.2)
[2022-04-17 05:21] LABS: BILIRUBIN,TOTAL 0.5 MG/DL (0.1-1.0)
[2022-04-17 05:23] LABS: CREATININE SERUM 0.75 MG/DL (0.60-1.30)
[2022-04-17] MEDS: inSUlin ASPART (NovoLOG) 1 UNIT/0.01 ML (CHARGE PER UNIT) SC SCH (05:24)
[2022-04-17] MEDS: DICYCLOMINE 10 MG (BENTYL) CAP PO SCH ×2 (06:19→12:05)
[2022-04-17] MEDS: VENlafaxine XR 37.5 MG (EFFEXOR XR) CAP PO SCH (06:19)
[2022-04-17] MEDS ORDERED: SIMETHICONE 80 MG (MYLICON) CHEW PO PRN (07:00)
[2022-04-17] MEDS: DOCUSATE SODIUM 100 MG (COLACE) CAP PO SCH ×2 (08:16→08:21)
[2022-04-17] MEDS: ASPIRIN E.C. 81 MG (ECOTRIN) TAB PO SCH (08:16)
[2022-04-17] MEDS: ASCORBIC ACID (VIT C) 500 MG TABLET PO SCH (08:16)
[2022-04-17] MEDS: PANTOPRAZOLE 40 MG (PROTONIX) TAB PO SCH (08:16)
[2022-04-17] MEDS: LORATADINE (CLARITIN) 10 MG TAB PO SCH (08:16)
[2022-04-17] MEDS: SENNA W/DOCUSATE (SENOKOT S) TABLET PO SCH ×2 (08:16→08:21)
[2022-04-17] MEDS: polyethylene glycoL POWDER 17 GM (MIRALAX) PACK PO SCH (08:17)
--- NOTE | 2022-04-17 08:27 | Diagnostic Imaging Report ---
Indication: Hypoxia Compared with exam 04/08/2022. Heart size is normal. There is no vascular congestion, edema, pneumonia, effusion or pneumothorax. Impression: Clear chest at follow-up. No failure pattern. Normal heart size and vascular caliber today. Dictated by: Dictated on workstation # [id number]
[2022-04-17 08:42] VITALS: BP 142/82
--- NOTE | 2022-04-17 11:41 | Therapy Team Discharge Summary ---
Therapy Discharge Summary Discharge Recommendations Date of Discharge Physical Therapy Patient came to rehab post Unwitnessed fall with minor head injury on anticoagulation. Upon evaluation patient performed rolling and supine <-> sit with CGA/SBA, sit <-> stand and transfers CGA/SBA, car transfer CGA/SBA, ambulated 160' with a rolling walker with CGA/SBA (including 50' with at least 2 turns of 90 degrees and 10' over an uneven surface), and picked up an object from the floor using a title processor with CGA/SBA. Patient has been performing bed mobility and transfer training, balance and endurance training, functional strengthening, stair training, gait training, and education. Patient has made fair progress but has not met her [facility] goals for transfers and ambulation. Now, patient performs rolling and supine <-> sit with independence, sit <-> stand and transfers with setup, car transfer CGA/SBA, ambulates at least 150' with a rolling walker with CGA/SBA (including 50' with at least 2 turns of 90 degrees and 10' over an uneven surface), can go up and down 4 steps using 2 handrails with CGA, and can medicinal plant picker an object from the floor using a title processor with independence. Patient is being discharged from this facility today and will be discharged from PT at this time. Roll Left to Right (QC): 6 Sit to Lying (QC): 6 Lying to Sitting/Side of Bed(Q: 6 Sit to Stand (QC): 5 Chair/Lfm-mp-Mcuvz Xfer(QC): 5 Toilet Transfer (QC): 5 Car Transfer (QC): 4 Does the Patient Walk: Yes Mode of Locomotion: Walk Anticipated Mode of Locomotion: Walk Walk 10 feet (QC): 4 Walk 50 ft with 2 Turns(QC): 4 Walk 150 ft (QC): 4 Walking 10ft on uneven surface: 4 Distance: 160 feet Gait Assistive Device: FWW Does the Pt Use a Wheelchair: No Wheel 50 ft with 2 turns (QC): 9 Wheel 150 ft (QC): 9 #of Steps: 4 1 Step (curb) (QC): 4 4 Steps (QC): 4 12 Steps (QC): 88 Balance Sitting Static: Normal Balance Sitting Dynamic: Fair Balance-Standing Static: Fair Picking up an Object (QC): 6 (title processor use) Occupational Therapy Decreased Activ Tolerance, Decreased UE Strength, Impaired Funct Balance, Impaired I ADL's, Impaired Self-Care Skills Eating (QC): 5 (set up with opening containers.) Oral Hygiene (QC): 5 Shower/Bathe Self (QC): 4 (supervision) Upper Body Dressing (QC): 5 Lower Body Dressing (QC): 3 (Min A with threading BLEs. Dressing stick utilized as needed.) On/Off Footwear (QC): 3 (Pt able to doff, assist to don. this is pt's PLOF.) Toileting Hygiene (QC): 4 (SBA) PT Welder Tack Goals Welder Tack Goals PT Welder Tack Goals Time Frame: May 10, 2022 Roll Left to Right (QC): 6 Sit to Lying (QC): 6 Lying-Sitting on Side/Bed(QC): 6 Sit to Stand (QC): 6 Chair/Hbl-ti-Uisbg Xfer(QC): 6 Toilet/Commode Transfer (QC): 6 Car Transfer (QC): 6 Does the Patient Walk: Yes Walk 10 feet (QC): 6 Walk 10ft-Uneven Surface(QC): 6 Walk 50ft with 2 Turns (QC): 6 Walk 150 ft (QC): 6 Does the Pt use WC or Scooter?: No Wheel 50 feet with 2 turns (QC: 9 Wheel 150 feet: 9 1 Step (curb) (QC): 4 4 Steps (QC): 4 12 Steps (QC): 88 Picking up an Object (QC): 6 OT Welder Tack Goals Longterm Goals Time Frame: May 02, 2022 Acute change in mental status: 0 Inattention: 0 Disorganized thinkin Altered level of consciousness: 0 Eating (QC): 6 Oral Hygiene (QC): 6 Toileting Hygiene (QC): 6 Shower/Bathe Self (QC): 4 Upper Body Dressing (QC): 6 Lower Body Dressing (QC): 6 On/Off Footwear (QC): 4 Additional Goals: 1-Demonstrate ADL Tasks, 2-Verbalize Understanding, 3- ImproveStrength/Priya 1=Demonstrate adherence to instructed precautions during ADL tasks. 2=Patient will verbalize/demonstrate understanding of assistive devices/modifications for ADL. 3=Patient will improve strength/tolerance for activity to enable patient to perform ADL's. ANNAMARIA GARCIA PT Apr 17, 2022 11:41
[2022-04-17 13:00] VITALS: BP 137/78
--- NOTE | 2022-04-17 13:36 | Therapy Team Discharge Summary ---
Therapy Discharge Summary Discharge Recommendations Date of Discharge Physical Therapy Roll Left to Right (QC): 6 Sit to Lying (QC): 6 Lying to Sitting/Side of Bed(Q: 6 Sit to Stand (QC): 5 Chair/Tak-ba-Wlwhp Xfer(QC): 5 Toilet Transfer (QC): 5 Car Transfer (QC): 4 Does the Patient Walk: Yes Mode of Locomotion: Walk Anticipated Mode of Locomotion: Walk Walk 10 feet (QC): 4 Walk 50 ft with 2 Turns(QC): 4 Walk 150 ft (QC): 4 Walking 10ft on uneven surface: 4 Distance: 160 feet Gait Assistive Device: FWW Does the Pt Use a Wheelchair: No Wheel 50 ft with 2 turns (QC): 9 Wheel 150 ft (QC): 9 #of Steps: 4 1 Step (curb) (QC): 4 4 Steps (QC): 4 12 Steps (QC): 88 Balance Sitting Static: Normal Balance Sitting Dynamic: Fair Balance-Standing Static: Fair Picking up an Object (QC): 6 (investigation lieutenant use) Occupational Therapy Pt admitted to ARU with closed head injury. At [facility], pt lived at [facility] and required some assistance with ADLs. Upon initial evaluation, pt required set up to IND with eating, SBA oral care, min A toileting and showering, set up UE dressing, CGA LE dressing and mod A footwear. OT tx focused on increasing BUE Strength and activity tolerance and increasing safety and independence with ADLs and functional mobility. Pt made some functional progress towards goals, but only attained LTG for showering. Pt returned to [facility], d/c from OT. Decreased Activ Tolerance, Decreased UE Strength, Impaired Funct Balance, Impaired I ADL's, Impaired Self-Care Skills Eating (QC): 5 (set up with opening containers.) Oral Hygiene (QC): 5 Shower/Bathe Self (QC): 4 (supervision) Upper Body Dressing (QC): 5 Lower Body Dressing (QC): 3 (Min A with threading BLEs. Dressing stick utilized as needed.) On/Off Footwear (QC): 3 (Pt able to doff, assist to don. this is pt's [facility].) Toileting Hygiene (QC): 4 (SBA) PT Consumer Affairs Director Goals Custodial Goals PT Consumer Affairs Director Goals Time Frame: May 10, 2022 Roll Left to Right (QC): 6 Sit to Lying (QC): 6 Lying-Sitting on Side/Bed(QC): 6 Sit to Stand (QC): 6 Chair/Jxc-zg-Gcrbg Xfer(QC): 6 Toilet/Commode Transfer (QC): 6 Car Transfer (QC): 6 Does the Patient Walk: Yes Walk 10 feet (QC): 6 Walk 10ft-Uneven Surface(QC): 6 Walk 50ft with 2 Turns (QC): 6 Walk 150 ft (QC): 6 Does the Pt use WC or Scooter?: No Wheel 50 feet with 2 turns (QC: 9 Wheel 150 feet: 9 1 Step (curb) (QC): 4 4 Steps (QC): 4 12 Steps (QC): 88 Picking up an Object (QC): 6 OT Custodial Goals Custodial Goals Time Frame: May 02, 2022 Acute change in mental status: 0 Inattention: 0 Disorganized thinkin Altered level of consciousness: 0 Eating (QC): 6 (not met) Oral Hygiene (QC): 6 (not met) Toileting Hygiene (QC): 6 (not met) Shower/Bathe Self (QC): 4 (met) Upper Body Dressing (QC): 6 (not met) Lower Body Dressing (QC): 6 (not met) On/Off Footwear (QC): 4 (not met) Additional Goals: 1-Demonstrate ADL Tasks, 2-Verbalize Understanding, 3- ImproveStrength/Priya 1=Demonstrate adherence to instructed precautions during ADL tasks. 2=Patient will verbalize/demonstrate understanding of assistive device s/modifications for ADL. 3=Patient will improve strength/tolerance for activity to enable patient to perform ADL's. CHELSEY FERNANDES OT Apr 17, 2022 13:36
== END 2022-04-17 13:00 | disposition home health service (06) | DRG 949 ==
PROVIDERS: ADMIT Internal Medicine; ATTEND Internal Medicine
DX: S06.0X0D Concussion without loss of consciousness, subsequent encounter (principal); I21.A1 Myocardial infarction type 2; I69.354 Hemiplegia and hemiparesis following cerebral infarction affecting left non-dominant side; R41.0 Disorientation, unspecified; R53.1 Weakness; R26.9 Unspecified abnormalities of gait and mobility; Z91.81 History of falling; H91.93 Unspecified hearing loss, bilateral; Z66 Do not resuscitate; I69.398 Other sequelae of cerebral infarction; E11.9 Type 2 diabetes mellitus without complications; H54.3 Unqualified visual loss, both eyes; K58.9 Irritable bowel syndrome, unspecified; G25.81 Restless legs syndrome; K21.9 Gastro-esophageal reflux disease without esophagitis; K44.9 Diaphragmatic hernia without obstruction or gangrene; M19.91 Primary osteoarthritis, unspecified site; F41.9 Anxiety disorder, unspecified; F32.A Depression, unspecified; G47.33 Obstructive sleep apnea (adult) (pediatric); Z86.711 Personal history of pulmonary embolism; Z79.01 Long term (current) use of anticoagulants; Z95.2 Presence of prosthetic heart valve; Z96.641 Presence of right artificial hip joint; Z79.82 Long term (current) use of aspirin; Z96.21 Cochlear implant status; Z97.4 Presence of external hearing-aid
CPT/HCPCS: 36415; 71045; 80053; 82947; 83880; 85025; 94760; 94761